=== PATIENT | female | born 1950 | race Caucasian/White ===

== ENCOUNTER 2020-03-03 08:40 | Outpatient (RCR) | payer MEDICAID, SELFPAY | END 2020-03-03 23:59 | disposition home or self-care (01) | LOC: ANHAUDIO 08:40 | PROVIDERS: PCP Family Medicine; Visit Provider Family Medicine | DX: Z46.1 Encounter for fitting and adjustment of hearing aid (principal) | CPT/HCPCS: 99199 ==

== ENCOUNTER 2020-03-05 08:30 | Outpatient (RCR) | payer MEDICARE, MEDICAID, SELFPAY ==
--- NOTE | 2020-01-10 10:31 | OTOPEVAL ---
OCCUPATIONAL THERAPY INITIAL EVALUATION: 01/10/2020 Thank you for referring Otilia Cardenas to [facility].? The patient is scheduled to be seen for therapy? 2 x/week for 4 weeks. Please review, sign, date and return this plan of care LUCILLE. I agree with and certify that the following plan of care is medically necessary. Referring Physician Date Attending Provider: PHYSICIAN NOT ON STAFF *OT Outpatient Evaluation Start: 01/10/20 09:16 Freq: Status: Active Protocol: Document 01/10/20 09:22 KJ (Rec: 01/10/20 10:31 KJ [id number]) Therapy Assessment Status Assessment Status Assessment Status Evaluation Outpatient Past Medical History Musculoskeletal History Hx Osteomyelitis Yes Endocrine History Hx Diabetes Yes Evaluation Information Problem Diagnosis trigger finger R UE Additional Evaluation Detail Patient has R UE index finger amputation. Patient was diagnosed in December 2018 with trigger finger of R UE long finger and had a trigger finger release surgery. Since surgery, the wound on long finger was not healing properly which required an additional 4 debridement surgeries. In May 2019 experienced pain in R UE long finger, patient went to doctor and on CT scan showed mass at the base of the volar aspect of MCP joint on the R UE long finger. Patient has surgery in August 2019 to have abscess removed. Since latest surgery in August, pt has not been able to flex the R UE long finger PIP/DIP joint, rests in extension. Subjective Information Pt reports decreased Query Text:As Reported By Patient/ functional use of R UE Family dominant hand and decreased ability to complete hand writing, jaquan, gripping, grasping objects, performing isaac hygiene. Patient reports unable to utilize R UE for many daily tasks due to pain and decreased ROM of R UE long finger. Prior Level of Function Activity Level (Last 3 Months) Hand Dominance
--- NOTE | 2020-02-06 08:38 | OTOPEVAL ---
OCCUPATIONAL THERAPY RE-EVALUATION 02/06/2020 Thank you for referring Otilia Cardenas to [facility].? The patient is scheduled to be seen for continued occupational therapy? 2x/week for 4 weeks. Please review, sign, date and return this plan of care LUCILLE. I agree with and certify that the following plan of care is medically necessary. Referring Physician Date Referring Provider: Joy Chisholm MD Per patient request, please also CC Dr. Ernesto Alfaro, pt's PCP *OT Outpatient Re-Evaluation Evaluation Information Problem Diagnosis Right middle finger stiffness Onset 08/2019 Additional Evaluation Detail Patient was diagnosed in December 2018 with trigger finger of right middle finger and had a trigger finger release surgery. Since surgery, the wound on long finger was not healing properly which required an additional 4 debridement surgery. In May 2019 she experienced pain in R UE long finger, CT scan showed mass at the base of the volar aspect of MCP joint on the right middle finger. Patient had surgery in August 2019 to have abcess removed. Since latest surgery in August, pt has not been able to flex the right middle finger PIP/DIP joint. Therapy has been focusing on utilizing thermal modalities, such as ultra sound and hot packs, to increase tissue extensibility in the right palm, scar massage, strengthening, and PROM for stiffness. She continues to have heavy scar formation restricting the glide of the flexor tendons. Subjective Information Pt reports that since working Query Text:As Reported By Patient/ with therapy she feels as Family though her swelling has decreased, pain has decreased, her strength has improved, and her movement is a little better. She is currently independent with ROM, scar massage/mobilization, and putty
--- NOTE | 2020-03-05 09:04 | OTOPEVAL ---
OCCUPATIONAL THERAPY RE-EVALUATION AND DISCHARGE SUMMARY 03/05/2020 Unfortunately at this time the patient has reached a plateau with functional AROM of the right middle finger. She has been educated on compensatory techniques and use of adaptive equipment to increase independence with ADLs and IADLs. She is currently independent with all home exercises. No further skilled OT is indicated at this time. Discharging patient with HEP. Thank you for referring Otilia Cardenas to [facility]. Please review, sign, date and return this Discharge Note LUCILLE. I agree with and certify that the following plan of care is medically necessary. Referring Physician Date Referring Provider: Joy Chisholm MD Per patient request, please also CC Dr. Ernesto Pugh, patient's PCP *OT Outpatient Re-Evaluation Problem Diagnosis Right middle finger stiffness Onset 08/2019 Additional Evaluation Detail Patient was diagnosed in December 2018 with trigger finger of right middle finger and had a trigger finger release surgery. Since surgery, the wound on long finger was not healing properly which required an additional 4 debridement surgeries. In May 2019 she experienced pain in R UE long finger, CT scan showed mass at the base of the volar aspect of MCP joint on the right middle finger. Patient had surgery in August 2019 to have abscess removed. Since latest surgery in August, pt has not been able to flex the right middle finger PIP/DIP joint. Therapy has been focusing on utilizing thermal modalities, such as ultrasound and hot packs, to increase tissue extensibility in the right palm, scar massage, strengthening, and PROM for stiffness. She continues to have heavy scar formation restricting the glide of the flexor tendons. Subjective Information Pt reports that she continues Query Text:As Reported By Patient/ to have constant pain in the Family right MF and hand. She states that therapy has helped with the pain and sensitivity, however th
== END 2020-03-05 11:29 | disposition home or self-care (01) ==
LOC: ANHOT 08:30
PROVIDERS: PCP Family Medicine
DX: M25.641 Stiffness of right hand, not elsewhere classified (principal); Z98.890 Other specified postprocedural states
CPT/HCPCS: 97035; 97110; 97140; 97165

== ENCOUNTER 2020-03-17 10:30 | Outpatient (CLI) | payer MEDICARE, MEDICAID, SELFPAY ==
--- NOTE | ~2020-03-17 | XR_ITS ---
XR hand RT min 3V DATE: 03/17/2020 10:51 INDICATION: Stiff fingers, immobility TECHNIQUE: 3 views COMPARISON: None FINDINGS: Diffuse osteopenia. There is amputation of the second digit at the proximal shaft of the second metacarpal bone. There is polyarticular osteoarthritis involving particularly the third metacarpophalangeal and all in terphalangeal joints. No erosive change is noted. No recent fracture or dislocation, periosteal reaction or bone destruction. 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 CTOR OF SLEEP IMPRESSION: Polyarticular osteoarthritis, particularly at third metacarpophalan geal and all interphalangeal joints Status post amputation of the second ray at the proximal shaft of the second me tacarpal Diffuse osteopenia
== END 2020-03-17 10:31 | disposition home or self-care (01) ==
LOC: ANHIMG 10:37
PROVIDERS: PCP Family Medicine; Visit Provider Plastic Surgery
DX: M25.641 Stiffness of right hand, not elsewhere classified (principal); M19.041 Primary osteoarthritis, right hand; Z89.021 Acquired absence of right finger(s)
CPT/HCPCS: 73130

== ENCOUNTER → 2020-03-25 08:13 | Outpatient (CLI) | payer MEDICARE, MEDICAID, SELFPAY ==
--- NOTE | ~2020-03-25 | MR_ITS ---
EXAMINATION: MR hand RT wo con DATE: 03/25/2020 09:17 INDICATION: Flexor tendon injury right middle finger. TECHNIQUE: Magnetic resonance imaging (MRI) of the right hand was performed without intravenous contr ast sequences included axial, coronal, and sagittal T1-weighted FSE and T2-weighted FS FSE. COMPARISON: Right hand radiographs 03/17/2020 FINDINGS: There are changes of amputation of the second ray at the diaphysis of the metatarsal. No fr acture. There is mild osteoarthritis of triscaphe joint, first carpometacarpal joint, and first and t hird metacarpophalangeal joints. There is moderate to severe osteoarthritis of most of the interphala ngeal joints. There is a complete tear of the third digit flexor digitorum profundus at the level of the metacarpophalangeal joint with tendon gap spanning 2.2 cm proximal to distal. There is a partial tear of the flexor digitorum superficialis in this location with sparing of some of the radial-sided fibers. The extensor tendons are unremarkable. IMPRESSION: 1. Complete tear of flexor digitorum profundus and partial tear of flexor digitorum superficialis in the third digit at the level of the metacarpophalangeal joint. Reviewed, dictated and finalized at location A. OM LINER IMPRESSION: 1. Complete tear of flexor digitorum profundus and partial tear of flexor digit orum superficialis in the third digit at the level of the metacarpophalangeal j oint.
== END ==
PROVIDERS: PCP Family Medicine; Visit Provider Plastic Surgery
DX: S66.192A Other injury of flexor muscle, fascia and tendon of right middle finger at wrist and hand level, initial encounter (principal); S66.112A Strain of flexor muscle, fascia and tendon of right middle finger at wrist and hand level, initial encounter
CPT/HCPCS: 73218

== ENCOUNTER 2020-07-18 07:23 | Outpatient (CLI) | payer MEDICARE, MEDICAID, SELFPAY ==
--- NOTE | 2020-07-18 07:33 | ECG_ITS ---
Measurements Intervals Oriental Rate: 70 P: 12 CO: 170 QRS: 7 QRSD: 77 T: 29 QT: 363 QTc: 392 Interpretive Statements SINUS RHYTHM LOW QRS VOLTAGE IN PRECORDIAL LEADS BORDERLINE R WAVE PROGRESSION, ANTERIOR LEADS BASELINE ARTIFACT- I, II, AVR, AVL, AVF BORDERLINE ECG Electronically Signed On 07-18-2020 8:01:53 CDT by Mejia Fulton D.O.
[2020-07-18 09:29] LABS: Anion Gap 3 mmol/L (8-16); Blood Urea Nitrogen 9 mg/dL (7-17); Calcium 9.1 mg/dL (8.4-10.2); Carbon Dioxide 32 mmol/L (22-30); Chloride 106 mmol/L (98-107); Estimated Glomerular Filt Rate > 60; Glucose 88 mg/dL (65-105); Potassium 4.2 mmol/L (3.4-5.0); Sodium 141 mmol/L (137-145)
== END 2020-07-18 07:24 | disposition home or self-care (01) ==
LOC: ANHSURGERY 07:29
PROVIDERS: Anesthesiology; PCP Family Medicine; Visit Provider Plastic Surgery
DX: E78.00 Pure hypercholesterolemia, unspecified (principal); E11.9 Type 2 diabetes mellitus without complications; Z01.818 Encounter for other preprocedural examination; R94.31 Abnormal electrocardiogram [ECG] [EKG]
CPT/HCPCS: 36415; 80048; 93005

== ENCOUNTER → 2020-07-21 01:19 | Outpatient (CLI) | payer MEDICARE, MEDICAID, SELFPAY ==
[2020-07-21 19:15] LABS: SARS-CoV-2 RNA PCR Negative
== END ==
PROVIDERS: PCP Family Medicine; Visit Provider Plastic Surgery
DX: Z01.812 Encounter for preprocedural laboratory examination (principal); Z20.822 Contact with and (suspected) exposure to COVID-19
CPT/HCPCS: C9803; U0003; U0005

== ENCOUNTER 2020-07-24 01:41 | Day surgery (SDC) | payer MEDICARE, MEDICAID, SELFPAY ==
[2020-07-14 16:15] VITALS: BMI 37.6
--- NOTE | 2020-07-24 07:12 | WPDHPUPDATE1 ---
History and Physical Update Update Date/Time: 07/24/20 07:12 History and Physical has been reviewed, including an updated exam of the patient. There are NO changes in the patient's condition. Risks, benefits, and alternatives have been discussed and questions answered. Patient agrees to proceed with procedure.
[2020-07-24] MEDS: LACTATED RINGERS 1,000 ML 30 ML IV CONT (08:06)
[2020-07-24 08:18] LABS: Glucose Point of Care 91 (65-105)
--- NOTE | 2020-07-24 08:19 | WPDANESEPPF ---
Anes - Initial Pre Proc Eval Procedure: Operation Date: 07/24/20 10:00 Proposed Procedures p Excision Of Painful Palmar Skin Mass At The Base Of Right Index Finger With Full Thickness Skin Graft From Right Forearm - Thomas Lund MD Date/Time: 07/24/20 08:19 Surgeon: Thomas Lund MD Pre Op Diagnosis: painful mass right palm Patient Data Age: 70 Gender: F Height: 5 ft 2 in Weight: 93 kg Allergies Allergy/AdvReac Type Severity Reaction Status Date / Time eucalyptus Allergy Intermediate BLISTERS Verified 07/24/20 07:42 quinine Allergy Intermediate HIVES Verified 07/24/20 07:43 levofloxacin Allergy Unknown Unknown Verified 07/24/20 07:42 menthol Allergy Unknown BLISTERS Verified 07/24/20 07:42 aspirin AdvReac Unknown Vomiting Verified 07/24/20 07:42 cephalexin AdvReac Unknown YEAST Verified 07/24/20 07:42 INFECTIONS Home Medications Medication Instructions Recorded Confirmed Type albuterol sulfate 2 inh INHALATION PRN PRN 07/14/20 07/14/20 History atorvastatin 10 mg PO DAILY 07/14/20 07/24/20 History cholecalciferol (vitamin D3) 125 mcg PO DAILY 07/14/20 07/24/20 History diltiazem HCl 30 mg PO TID 07/14/20 07/24/20 History fluoxetine 50 mg PO DAILY 07/14/20 07/24/20 History gabapentin 600 mg PO TID 07/14/20 07/24/20 History hydrocodone-acetaminophen 1 tablet PO QID 07/14/20 07/24/20 History insulin glargine [Lantus Solostar 18 unit SUBCUT BID 07/14/20 07/24/20 History U-100 Insulin] lisinopril 10 mg PO DAILY 07/14/20 07/24/20 History Laboratory Tests 07/24/20 08:15 POC Capillary Glucose 91 mg/dl mg/dl (65-105) Patient hx anesthesia problems: none Family hx anesthesia problems: none PMFSH Past Medical History Medical History Anxiety Depression Diabetes Hyperlipidemia Hypertension Neuropathy Raynaud's disease Family History Family History Other Diabetes mellitus Family history of kidney disease Family history of malignant neoplasm Social History Social History Smoking packs per day: 2 Smoking cigarettes per day: 40.0 Years smoked: 45 Smoking pack-years: 90.00 Smoking status: Current every day smoker Tobacco type: cigarettes Smoking end date: 03/21/11 Additional smoking assessment comments: STATES WILL OCC. VAPE Alcohol intake: never Living arrangements: alone Spiritual care concerns: No Anes - Eval Final PreProcedure Day of Procedure 07/24/20 08:19 Patient weight: obese Heart: regular rate and rhythm Lungs: decreased breath sounds Airway: Mallampati scale class II Neurological: alert and oriented Last oral intake: >/= 8 hours ASA classification: III Emergent: no Anesthetic plan: proceed Anesthesia type and monitoring: general (givs vs lma) and standard monitoring Informed Consent: The patient's anesthetic plan and its attendant risks and benefits were discussed with the patient/family/POA. Questions were solicited and answers provided to the satisfaction of the patient/family/POA.
[2020-07-24 08:20] VITALS: BP 135/54; PULSE 82; RESP 18; TEMP 36.6; O2SAT 96
[2020-07-24] MEDS: CLINDAMYCIN 900 MG/D5W 50 ML 900 MG/50 ML PIGGYBACK 50 MG IVPB (10:56)
[2020-07-24] MEDS: LIDO 1%/EPINEPHRINE 1:100,000 50 ML VIAL 10 ML INFILTRATE (11:26)
[2020-07-24 12:08] VITALS: BP 102/36; PULSE 98; RESP 16; TEMP 36.4; O2SAT 92
--- NOTE | 2020-07-24 12:21 | PM.OP ---
Procedure Note - Brief Procedure Note - Brief Date of procedure: 07/24/20 Pre-op diagnosis: painful mass right palm Post-op diagnosis: same Procedure performed: 1.5 cm excision of skin mass right 3rd palmar index finger with FTSG 2.5 sq cm. Anesthesia: MAC Surgeon: Thomas Lund MD Estimated blood loss (mL): 1 Drains: No Packing: No Pathology: yes Complications: No immediate complications Condition: stable Disposition: same day
[2020-07-24 12:35] VITALS: BP 129/97; PULSE 75; RESP 16; O2SAT 94
--- NOTE | 2020-07-24 12:49 | P.OP_ITS ---
Procedure Note - Detailed Date of procedure: 07/24/20 Pre-op diagnosis: painful mass right palm Post-op diagnosis: same Procedure performed: 1.5 cm excision of mass of the right hand with full- thickness skin graft 2.5 sq cm Description of procedure: The site was marked on the patient in the holding area. She was taken to the operating room placed supine on operating table. Time-out was held and confirmed. The extremity was prepped and draped usual fashion. She was given IV sedation. The site was locally infiltrated with 1% lidocaine with epinephrine. This tito the finger.. The mass was excised through full-thickness of skin. Below skin there was scar and tendon. Very released the tourniquet at that point and observed for local bleeding. A full-thickness skin graft was harvested from the right volar forearm as an extension of an exit scar. The skin graft was defatted and inset to the palmar wound with multiple nylon sutures including quilting stitches. The donor site was closed with intradermal 4-0 Monocryl sutures and glue. A bulky bandage with local gauze compression was applied to the hand. She had received clindamycin IV preop will be discharged on clindamycin. She already has hydrocodone 10 per/325 q.i.d. available at her home. Anesthesia: MAC Surgeon: Thomas Lund MD Estimated blood loss (mL): 1 Drains: No Packing: No Pathology: yes Complications: No immediate complications Condition: stable Disposition: same day
[2020-07-24 12:50] VITALS: BP 120/60; PULSE 80; RESP 16; O2SAT 94
[2020-07-24 12:50] LABS: Glucose Point of Care 71 (65-105)
== END 2020-07-24 12:57 | disposition home or self-care (01) ==
PROVIDERS: PCP Family Medicine; Visit Provider Plastic Surgery
PROC: (CPT 11422; principal; 2020-07-24 10:00)
DX: L91.0 Hypertrophic scar (principal); F17.210 Nicotine dependence, cigarettes, uncomplicated; I73.00 Raynaud's syndrome without gangrene; E11.9 Type 2 diabetes mellitus without complications; Z79.4 Long term (current) use of insulin; Z79.51 Long term (current) use of inhaled steroids; F41.8 Other specified anxiety disorders; E78.5 Hyperlipidemia, unspecified; I10 Essential (primary) hypertension; G62.9 Polyneuropathy, unspecified; E66.9 Obesity, unspecified; Z68.37 Body mass index [BMI] 37.0-37.9, adult
CPT/HCPCS: 11422; 15240; 82948; 88304; 88305; A9270; J1100; J2250; J2405; J2704; J3010; J7120

== ENCOUNTER 2020-09-08 08:30 | Outpatient (RCR) | payer MEDICARE, MEDICAID, SELFPAY ==
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
--- NOTE | 2020-09-10 14:18 | PCOTNOTE ---
OCCUPATIONAL THERAPY DISCHARGE NOTE 09/10/20 Patient:Otilia Cardenas Date of :1950 Otilia called and cancelled tomorrows re-evaluation per MD request. Patient?s initial visit was on 08/14/2020 09:00 and she had a total of 6 visits. Treatment included use of heat packs, massage, ROM, and ultrasound to help facilitate improved tissue mobility in the right palm. The goals have not been met. Thank you for referring this patient to [facility]. Please review, sign, date and return this discharge summary LUCILLE. I have been updated about the patient's current status and I agree with discharge from the above service at this time. Referring Physician Date Referring Physician: Thomas Lund MD
== END 2020-09-11 15:20 | disposition home or self-care (01) ==
LOC: ANHOT 08:30
PROVIDERS: PCP Family Medicine; Visit Provider Plastic Surgery
DX: Z48.817 Encounter for surgical aftercare following surgery on the skin and subcutaneous tissue (principal); Z94.5 Skin transplant status
CPT/HCPCS: 97035; 97110; 97140; 97165

== ENCOUNTER 2021-03-24 08:28 | Emergency (ER) | payer OTHER, SELFPAY ==
[2021-03-24] VITALS (25 sets, daily range): BP systolic 104–191; BP diastolic 51–103; PULSE 78–101; RESP 12–26; TEMP 36.2–36.8; O2SAT 91–100
--- NOTE | ~2021-03-24 | XR_ITS ---
EXAMINATION: XR ankle RT 2V DATE: 03/24/2021 11:56 INDICATION: Postreduction of a right ankle fracture TECHNIQUE: Anteroposterior and lateral views of the right ankle were obtained. COMPARISON: Earlier radiographs from 03/24/2021 FINDINGS: Again seen are fractures cross the medial malleolus and at the distal metaphyseal region of the right fibula. Both fractures along with the intervening talar dome are angulated is a relatively calyceal unit approximately 30 degrees laterally with respect to the axis of the tibial and fibular diaphyses. There is prostate 1 severe associated distraction of the medial patellar fracture. There is a likely small fracture of the lateral aspect of the posterior malleolus which is not well profiled on the pr ovided projections. Fiberglas splinting material posterior to the lower leg and extending distally al aleah the plantar aspect of the foot. Mild osteoarthritis at the tarsometatarsal joints with suggestion of degenerative subarticular cystic change versus chronic erosion with sclerotic margins at the base of the second metatarsal. Small Achilles calcaneal spur and moderate plantar calcaneal spur. IMPRESSION: 1. Trimalleolar fracture with 30 degrees residual lateral angulation of the medial and lateral malleo lar fragments as well as intervening talar dome relative to the axis of the tibial and fibular diaphy ses post reduction and splinting. Reviewed, dictated and finalized at location B. RVISOR SHOP IMPRESSION: 1. Trimalleolar fracture with 30 degrees residual lateral angulation of the med ial and lateral malleolar fragments as well as intervening talar dome relative to the axis of the tibial and fibular diaphyses post reduction and splinting.
--- NOTE | ~2021-03-24 | CT_ITS ---
EXAMINATION: CT ankle RT wo con DATE: 03/24/2021 12:28 INDICATION: Right ankle fracture dislocation. TECHNIQUE: Computed tomography (CT) of the right ankle was performed without intravenous contrast. Au tomated exposure control and iterative reconstruction technique were employed. The dose-length produc t was 428.95 mGy-cm. COMPARISON: Right ankle radiographs 03/24/2021 FINDINGS: There are comminuted fractures of distal tibia and fibula. The distal fibula demonstrates t he proximal medial aspect of the fracture line to be 5.2 cm proximal to the level of the tibial plafo nd. The main distal fracture fragment demonstrates 6 mm posterior displacement, 14 degrees anterior a ngulation, shortening, and 38 degrees lateral angulation. The fracture of distal tibia involving the medial malleolus and posterior malleolus and posterior tibial plafond. The main distal fracture fragm ent at the medial malleolus demonstrates 12 mm lateral displacement and 34 degrees lateral angulation . There is posterior and lateral displacement of the main posterior fracture fragment of the posterio r malleolus. The posterolateral tibial plafond demonstrates impaction of the articular surface. There is lateral and posterior subluxation of talus with respect to distal tibia. There is 33 degrees valg us angulation of talus with respect to distal tibia. There is polyarticular osteoarthritis of the mid foot including severe osteoarthritis of second and third tarsometatarsal joints. There is moderate an kle joint osteoarthritis. IMPRESSION: 1. Comminuted fractures of distal tibia and fibula. 2. Lateral subluxation and angulation of talus with respect to distal tibia. Reviewed, dictated and finalized at location A. ECTOR WATCH TRAIN
--- NOTE | ~2021-03-24 | XR_ITS ---
EXAMINATION: XR ankle RT 2V DATE: 03/24/2021 08:52 INDICATION: Right ankle injury. TECHNIQUE: 2 views of right ankle were obtained. COMPARISON: None. FINDINGS: There is a comminuted fracture involving medial and posterior malleoli. The main distal fra cture fragment of the medial malleolus demonstrates 1.8 cm lateral displacement and lateral angulatio n. There is a comminuted fracture of distal fibula with proximal medial aspect of the fracture line 6 .1 cm proximal to the level of the tibial plafond. The main distal fracture fragment demonstrates imp action, 48 degrees lateral angulation, and 2 mm posterior displacement. There is lateral dislocation of talus with respect to tibial plafond. The distal fracture fragments of the medial and lateral mall eoli maintain a normal relationship with the tibial plafond. There is mild osteoarthritis of talonavi cular joint. There are enthesophytes at the posterior and lateral aspects of calcaneal tuberosity. Th ere is ankle soft tissue swelling. IMPRESSION: 1. Trimalleolar ankle fracture dislocation. Reviewed, dictated and finalized at location A. T AID INSTRUCTOR
--- NOTE | ~2021-03-24 | XR_ITS ---
XR ankle RT min 3V DATE: 03/24/2021 10:14 INDICATION: Trimalleolar ankle fracture/dislocation TECHNIQUE: 3 views COMPARISON: 03/24/2021 right ankle FINDINGS: There is slight interval improvement of the lateral dislocation at the tibiotalar joint. Co mminuted lateral and medial malleolar fractures. Plantar calcaneal enthesopathy. IMPRESSION: Fracture dislocation of ankle, with slight interval improvement and lateral tibiotalar di slocation Reviewed, dictated and finalized at location A. L PARAPROFESSIONAL IMPRESSION: Fracture dislocation of ankle, with slight interval improvement and lateral tibiotalar dislocation
[2021-03-24] MEDS: HYDROmorphone HCL INJ (*CRX) 1 MG/ML SYR IV PUSH (10:59)
--- NOTE | 2021-03-24 11:40 | PC.NURSE ---
EDP Carlos and FREIDA Narayan in room for moderate sedation. Crash cart in room, ETCO2 monitoring on patient. 1143 - EDP Carlos gave 60mg Propofol
--- NOTE | 2021-03-24 11:52 | ED.GENADULT ---
HPI - General Adult General Chief complaint: Extremity Injury, Lower Stated complaint: fx ankle Time Seen by Provider: 03/24/21 09:59 Source: patient Mode of arrival: EMS Limitations: no limitations History of Present Illness HPI narrative: Patient is a 70-year-old female presented with chief complaint of right ankle deformity after falling prior to arrival. Patient states she is honestly not sure how she fell or landed. Denies any head impact. Denies any loss of consciousness. Patient reports severe pain swelling and bruising to her right ankle. Patient denies any prior fractures to the ankle. Patient reports that she was not able to bear weight on the extremity. Patient reports her past medical history is significant for being a insulin-dependent diabetic. She also reports having high blood pressure Related Data Home Medications Medication Instructions Recorded Confirmed albuterol sulfate 2 inh INHALATION PRN PRN 07/14/20 07/14/20 atorvastatin 10 mg PO DAILY 07/14/20 07/24/20 cholecalciferol (vitamin D3) 125 mcg PO DAILY 07/14/20 07/24/20 diltiazem HCl 30 mg PO TID 07/14/20 07/24/20 fluoxetine 50 mg PO DAILY 07/14/20 07/24/20 gabapentin 600 mg PO TID 07/14/20 07/24/20 hydrocodone-acetaminophen 1 tablet PO QID 07/14/20 07/24/20 insulin glargine [Lantus Solostar 18 unit SUBCUT BID 07/14/20 07/24/20 U-100 Insulin] lisinopril 10 mg PO DAILY 07/14/20 07/24/20 Allergies Allergy/AdvReac Type Severity Reaction Status Date / Time eucalyptus Allergy Intermediate BLISTERS Verified 07/24/20 07:42 quinine Allergy Intermediate HIVES Verified 07/24/20 07:43 levofloxacin Allergy Unknown Unknown Verified 07/24/20 07:42 menthol Allergy Unknown BLISTERS Verified 07/24/20 07:42 aspirin AdvReac Unknown Vomiting Verified 07/24/20 07:42 cephalexin AdvReac Unknown YEAST Verified 07/24/20 07:42 INFECTIONS Review of Systems Review of Systems: CONSTITUTIONAL: Denies fever, chills, or sweats. EYES: Denies visual changes, redness, or discharge. ENT: Denies rhinorrhea, congestion, sore throat, or otalgia. CARDIOVASCULAR: Denies chest pain, palpitations, or edema. RESPIRATORY: Denies cough or dyspnea. GASTROINTESTINAL: Denies abdominal pain, nausea, vomiting, or diarrhea. GENITOURINARY: Denies dysuria or hematuria. SKIN: Denies rash or itching. MUSCULOSKELETAL: Reports right ankle fracture denies back pain, joint pain, or myalgia. NEUROLOGIC: Denies headache, numbness, dizziness, or weakness. PSYCHIATRIC: Denies anxiety or depression. [facility] Past Medical History Medical History Anxiety Depression Diabetes Hyperlipidemia Hypertension Neuropathy Raynaud's disease Family History Family History Other Diabetes mellitus Family history of kidney disease Family history of malignant neoplasm Social History Social History Smoking packs per day: 2 Smoking cigarettes per day: 40.0 Years smoked: 45 Smoking pack-years: 90.00 Smoking status: Current every day smoker Tobacco type: cigarettes Smoking end date: 03/21/11 Additional smoking assessment comments: STATES WILL OCC. VAPE Alcohol intake: never Spiritual care concerns: No Exam Narrative: GENERAL: Well-appearing, well-nourished, and in no acute distress. HEAD: Normocephalic, atraumatic. EYES: PERRLA and EOMI. CHEST: Clear to auscultation. No respiratory distress. No wheezes rales or rhonchi HEART: Regular rate and rhythm. Normal peripheral pulses. EXTREMITIES: Edema ecchymosis or deformity noted to right ankle. There is ecchymosis over the medial malleolus with lateral swelling. Patient's right ankle is foot is deformed- externally rotated. SKIN: Warm, dry, no rash. NEURO: Alert and oriented x3. Non voluntary movements of upper and lower extermities- patient reports due to pain. PSYC
[2021-03-24] MEDS: MORPHINE SULFATE (*CRX) 4 MG/ML INJ IV PUSH (13:19)
[2021-03-24] MEDS: SODIUM CHLORIDE 0.9% IV 1,000 ML 999 ML IV CONT (16:23)
--- NOTE | 2021-03-24 16:35 | PC.NURSE ---
Saline bolus infusing at time of departure with EMS
== END 2021-03-24 16:35 | disposition short-term general hospital (02) ==
PROVIDERS: Emergency Provider Emergency Medicine; PCP Family Medicine
DX: S82.851A Displaced trimalleolar fracture of right lower leg, initial encounter for closed fracture (principal); E11.9 Type 2 diabetes mellitus without complications; I10 Essential (primary) hypertension; E78.5 Hyperlipidemia, unspecified; F17.210 Nicotine dependence, cigarettes, uncomplicated; Z79.4 Long term (current) use of insulin; Z79.891 Long term (current) use of opiate analgesic; W19.XXXA Unspecified fall, initial encounter
CPT/HCPCS: 29505; 73600; 73610; 73700; 96361; 96365; 96375; 99285; J0131; J1170; J2270; J7030

== ENCOUNTER 2021-05-14 11:41 | Emergency (ER) | payer OTHER, SELFPAY ==
[2021-05-14] VITALS (19 sets, daily range): BP systolic 80–114; BP diastolic 38–93; PULSE 52–69; RESP 11–18; TEMP 36.9–37.4; O2SAT 94–99
--- NOTE | ~2021-05-14 | XR_ITS ---
EXAMINATION: XR ankle RT min 3V DATE: 05/14/2021 12:24 INDICATION: Right lower leg pain and erythema. TECHNIQUE: 4 views of right ankle were obtained. COMPARISON: Right ankle radiographs 03/24/2021 FINDINGS: There is a comminuted fracture of distal fibula with internal fixation with lateral plate, multiple screws, and 2 syndesmotic screws. The main distal fracture fragment demonstrates near-anatom ic alignment. There is a fracture of medial malleolus in near-anatomic alignment status post open red uction internal fixation with medial plates with screws and interfragmentary screws. Osteopenia is no corrina. There are erosions of medial malleolus. There is severe tibiotalar joint osteoarthritis. There i s mild midfoot osteoarthritis. There are enthesophytes at the posterior and plantar aspects of calcan eal tuberosity. There is soft tissue swelling about the ankle and foot. IMPRESSION: 1. Erosions of medial malleolus suspicious for osteomyelitis. 2. Comminuted fractures of distal fibula and medial malleolus status post open reduction internal fix ation. 3. 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 Reviewed, dictated and finalized at location A. L RIGHTS INVESTIGATOR IMPRESSION: 1. Erosions of medial malleolus suspicious for osteomyelitis. 2. Comminuted fractures of distal fibula and medial malleolus status post open reduction internal fixation. 3. 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
--- NOTE | ~2021-05-14 | US_ITS ---
EXAMINATION: US venous doppler LE RT DATE: 05/14/2021 12:40 INDICATION: Right lower limb pain. TECHNIQUE: Grayscale ultrasound images without and with compression and Doppler ultrasound images of the right lower extremity veins were obtained. COMPARISON: None. FINDINGS: The visualized portions of right common femoral vein, profunda (deep) femoral vein, femoral vein, pop liteal vein, peroneal veins, posterior tibial veins, and greater saphenous vein outflow are patent. IMPRESSION: 1. No deep venous thrombosis. Reviewed, dictated and finalized at location A. DDER TENDER PEAT
[2021-05-14] MEDS: SODIUM CHLORIDE 0.9% IV 1,000 ML 999 ML IV CONT (12:05)
[2021-05-14 12:07] LABS: Basophils Absolute Auto 0.1 K/mm3 (0.0-0.1); Basophils Percent Auto 0.5 % (0.2-1.2); Eosinophils Absolute Auto 0.3 K/mm3 (0-0.3); Eosinophils Percent Auto 2.5 % (0-4.4); Hematocrit 27.4 % (37.0-47.0); Hemoglobin 8.3 g/dL (12.0-15.0); Immature Granulocyte Absolute 0.02 K/mm3 (0.00-0.031); Immature Granulocyte Percent A 0.2 % (0-0.5); Lymphocytes Absolute Auto 1.64 K/mm3 (0.9-3.2); Lymphocytes Percent Auto 16.3 % (18.3-44.2); Mean Corpuscular HGB Conc 30.3 g/dl (32-36); Mean Corpuscular Hemoglobin 26.8 pg (26-34); Mean Corpuscular Volume 88.4 fl (80-100); Mean Platelet Volume 10.7 fl (7.4-10.4); Monocytes Absolute Auto 0.7 K/mm3 (0.1-0.6); Monocytes Percent Auto 7.3 % (2.6-8.5); Neutrophils Absolute Auto 7.4 K/mm3 (1.3-6.7); Neutrophils Percent Auto 73.2 % (45.5-73.1); Platelet Count Result 390 k/mm3 (150-375); Red Cell Distribution Width 16.2 % (11.5-14.5)
[2021-05-14 12:17] LABS: INR 1.8; Prothrombin Time 19.8 Seconds (11.1-14.7)
[2021-05-14 12:18] LABS: Lactic Acid Reflex 1.4 mmol/L (0.7-2.1)
[2021-05-14 12:37] LABS: Alanine Aminotransferase 15 U/L (4-35); Alkaline Phosphatase 97 U/L (38-126); Anion Gap 7 mmol/L (8-16); Aspartate Amino Transferase 20 U/L (14-36); Bilirubin,Total 0.2 mg/dL (0.2-1.3); Blood Urea Nitrogen 38 mg/dL (7-17); Calcium 8.7 mg/dL (8.4-10.2); Carbon Dioxide 26 mmol/L (22-30); Chloride 103 mmol/L (98-107); Estimated CRCL calculation 31 ml/min; Estimated Glomerular Filt Rate 32; Glucose 120 mg/dL (65-110); Potassium 5.1 mmol/L (3.4-5.0); Sodium 136 mmol/L (137-145)
[2021-05-14] MEDS: SODIUM CHLORIDE 0.9% IV 500 ML 999 ML IV CONT (12:58)
[2021-05-14] MEDS: SILVERGEL (ELTA) 45 ML 1 APPLIC TOPICAL (13:36)
--- NOTE | 2021-05-14 13:52 | PC.NURSE ---
EDP Cher notified of patient's allergy to cephalexin. Patient states she itches and gets hives. Per EDP Cher, do not administer Zosyn at this time.
--- NOTE | 2021-05-14 15:37 | ED.GENADULT ---
HPI - General Adult General Chief complaint: Wound/Laceration Stated complaint: not specified for re-evaluation Source: RN notes reviewed History of Present Illness HPI narrative: Patient presents emergency department from [facility] via EMS for wounds on her right leg. Patient states that she had fallen in March and had a fracture of her ankle she had been transferred at that time and had ankle fixed at [facility] she had a cast on the cast was recently taken off per the patient she has been having wounds on her right leg that been progressively worsening Steffensen in today for worsening of the wounds she denies having fevers or chills chest pain shortness of breath states that the right leg has been swollen Related Data Home Medications Medication Instructions Recorded Confirmed albuterol sulfate 2 inh INHALATION PRN PRN 07/14/20 07/14/20 atorvastatin 10 mg PO DAILY 07/14/20 07/24/20 cholecalciferol (vitamin D3) 125 mcg PO DAILY 07/14/20 07/24/20 diltiazem HCl 30 mg PO TID 07/14/20 07/24/20 fluoxetine 50 mg PO DAILY 07/14/20 07/24/20 gabapentin 600 mg PO TID 07/14/20 07/24/20 hydrocodone-acetaminophen 1 tablet PO QID 07/14/20 07/24/20 insulin glargine [Lantus Solostar 18 unit SUBCUT BID 07/14/20 07/24/20 U-100 Insulin] lisinopril 10 mg PO DAILY 07/14/20 07/24/20 Allergies Allergy/AdvReac Type Severity Reaction Status Date / Time eucalyptus Allergy Intermediate BLISTERS Verified 05/14/21 13:46 quinine Allergy Intermediate HIVES Verified 05/14/21 13:46 cephalexin Allergy Unknown Itching Verified 05/14/21 13:54 levofloxacin Allergy Unknown Unknown Verified 05/14/21 13:46 menthol Allergy Unknown BLISTERS Verified 05/14/21 13:46 Quinolones Allergy Unknown Verified 05/14/21 13:46 aspirin AdvReac Unknown Vomiting Verified 05/14/21 13:46 Review of Systems Review of Systems: Gen.: Denies fevers or chills ENT: Denies congestion Respiratory: Denies shortness of breath or cough CV: Denies chest pain or palpitations GI: Denies abdominal pain nausea, emesis or diarrhea Musculoskeletal: Reports right leg pain Neuro: Denies numbness, tingling, weakness or focal weakness Skin: See HPI Except as documented, all other systems reviewed and negative FOR[facility]LY [facility] Past Medical History Medical History Anxiety Depression Diabetes Hyperlipidemia Hypertension Neuropathy Raynaud's disease Family History Family History Other Diabetes mellitus Family history of kidney disease Family history of malignant neoplasm Social History Social History Smoking packs per day: 2 Smoking cigarettes per day: 40.0 Years smoked: 45 Smoking pack-years: 90.00 Smoking status: Current every day smoker Tobacco type: cigarettes Smoking end date: 03/21/11 Additional smoking assessment comments: STATES WILL OCC. VAPE Alcohol intake: never Spiritual care concerns: No Exam Narrative: APPEARANCE: No acute distress, nontoxic, resting in bed EYES: EOMI HEENT: Normocephalic, atraumatic, OMM RESPIRATORY: No respiratory distress Clear to auscultation bilaterally with no rhonchi wheezing or rales. CARDIOVASCULAR: Regular rate and rhythm without murmurs rubs or gallops. ABDOMINAL: Soft, nontender, nondistended, no rebound or guarding MUSCULOSKELETAl: Moves all extremities. No clubbing, cyanosis 3+ edema of the right lower extremity Doppler pulse present by ultrasound NEURO: Awake and alert. Following commands, speech normal, no focal deficits SKIN:: Warm, dry. Numerous ulcerated wounds over the right lower extremity from the mid dubois down to the right foot different stages of healing the right medial malleolus has a tunneling wound that appears to tunnel down to the bone with mild purulent drainage PSYCHIATRIC: Normal affect/mood, Course Course Emergency Course: Reviewed
[2021-05-14 15:51] LABS: SARS-CoV-2 RNA PCR Negative
[2021-05-14] MEDS: HYDROcodone/acetaminophen (*CRX) 5-325 MG TABLET 1 TAB PO (16:16)
[2021-05-14] MEDS: SODIUM CHLORIDE 0.9% IV 1,000 ML 80 ML IV CONT (16:49)
--- NOTE | 2021-05-14 16:52 | PC.NURSE ---
[facility] declined [facility] accepted ETA 1800 Trip#[id number]
--- NOTE | 2021-05-14 18:26 | PC.NURSE ---
Per EDP Cher, roma to stop infusion of normal saline when EMS arrives. Normal saline fluids stopped at this time.
== END 2021-05-14 18:27 | disposition short-term general hospital (02) ==
PROVIDERS: Emergency Provider Emergency Medicine; PCP Family Medicine
DX: E11.69 Type 2 diabetes mellitus with other specified complication (principal); M86.9 Osteomyelitis, unspecified; N28.9 Disorder of kidney and ureter, unspecified; Z20.822 Contact with and (suspected) exposure to COVID-19; E78.5 Hyperlipidemia, unspecified; I10 Essential (primary) hypertension; E11.40 Type 2 diabetes mellitus with diabetic neuropathy, unspecified; I73.00 Raynaud's syndrome without gangrene; F41.9 Anxiety disorder, unspecified; F32.A Depression, unspecified; Z79.4 Long term (current) use of insulin; F17.290 Nicotine dependence, other tobacco product, uncomplicated; M19.071 Primary osteoarthritis, right ankle and foot; R60.0 Localized edema
CPT/HCPCS: 36415; 73610; 80053; 83605; 85025; 85610; 85730; 87040; 87070; 87075; 87077; 87186; 87205; 93971; 96361; 96365; 96367; 99285; A9270; C9803; J0743; J2543; J3370; J7030; J7040; U0003; U0005

== ENCOUNTER 2021-12-07 14:10 | Inpatient (IN) | payer OTHER, SELFPAY ==
[2021-12-07] VITALS (14 sets, daily range): BP systolic 96–130; BP diastolic 33–73; PULSE 87–102; RESP 12–24; TEMP 36.7–38.3; O2SAT 94–98
--- NOTE | ~2021-12-07 | XR_ITS ---
XR chest 1V portable 12/07/2021 17:05 Indication: Fever. Shortness of breath. Procedure: AP portable chest Comparison: 06/20/2014 Findings: Heart size normal. There is lingular infiltrates which may represent atelectasis or less li ping pneumonia. No pleural effusion, edema or pneumothorax. No acute osseous abnormality. Impression: 1: Lingular infiltrates which may represent atelectasis or pneumonia. Reviewed, dictated and finalized at location A. Impression: 1: Lingular infiltrates which may represent atelectasis or pneumonia.
--- NOTE | ~2021-12-07 | XR_ITS ---
EXAM: XR foot RT 2V DATE: 12/07/2021 17:05 HISTORY: r/o osteo . COMPARISON: None available. FINDINGS: Severe osteopenia which limits radiographic sensitivity. Extensive hardware fixation of th e ankle, without definite hardware fracture or perihardware lucency, noting that the provided views a re suboptimal of the hardware. No acute fracture or dislocation. No definite osseous erosion. No defi nite periosteal change. Diffuse soft tissue swelling about the lower leg and foot. Ankle joint effusi on. IMPRESSION: No radiographic evidence of osteomyelitis. Reviewed, dictated and finalized at location K.
--- NOTE | 2021-12-07 14:27 | ECG_ITS ---
Measurements Intervals [place] Rate: 92 P: 64 VT: 162 QRS: 8 QRSD: 88 T: 68 QT: 339 QTc: 421 Interpretive Statements SINUS RHYTHM CONSIDER INFERIOR INFARCT, AGE INDETERMINATE BORDERLINE ST-T WAVE ABNORMALITY- HIGH LATERAL LEADS BASELINE ARTIFACT- I, II, III, AVR, AVL ABNORMAL ECG COMPARED TO ECG 07/18/2020 07:44:21 NO SIGNIFICANT CHANGES Electronically Signed On 12-07-2021 16:54:57 CDT by Mejia Fulton D.O.
--- NOTE | 2021-12-07 15:01 | ED.WEAKNESS ---
HPI - Weakness General Chief complaint: Weakness Stated complaint: lethargy, ?AMS Time Seen by Provider: 12/07/21 14:25 History of Present Illness HPI Narrative: Pt presents with generalized weakness. Pt denies one sided weakness or CRUZ. Daughter said she had slid off recliner and was on floor at 0300 with blanket covering her. She put her in the chair and went to work and when she stopped by she was still in the chair which is not typical. Related Data Home Medications Medication Instructions Recorded Confirmed albuterol sulfate 90 mcg/actuation 2 inh inhalation PRN PRN SOB 07/14/20 07/14/20 aerosol inhaler atorvastatin 10 mg tablet 10 mg PO DAILY 07/14/20 07/24/20 cholecalciferol (vitamin D3) 125 125 mcg PO DAILY 07/14/20 07/24/20 mcg (5,000 unit) tablet diltiazem HCl 30 mg tablet 30 mg PO TID 07/14/20 07/24/20 fluoxetine 10 mg capsule 50 mg PO DAILY 07/14/20 07/24/20 gabapentin 300 mg capsule 600 mg PO TID 07/14/20 07/24/20 hydrocodone 10 mg-acetaminophen 1 tablet PO QID PAIN 07/14/20 07/24/20 325 mg tablet insulin glargine 100 unit/mL (3 18 unit subcut BID 07/14/20 07/24/20 mL) subcutaneous pen (Lantus Solostar U-100 Insulin) lisinopril 10 mg tablet 10 mg PO DAILY 07/14/20 07/24/20 apixaban 5 mg tablet (Eliquis) mg 12/07/21 12/07/21 cholecalciferol (vitamin D3) 125 12/07/21 mcg (5,000 unit) capsule diltiazem HCl 120 mg mg PO 12/07/21 capsule,extended release 24 hr, controlled (DILT-XR) duloxetine 30 mg capsule,delayed mg PO 12/07/21 release furosemide 20 mg tablet mg 12/07/21 furosemide 40 mg tablet mg 12/07/21 hydrocodone 10 mg-acetaminophen tablet 12/07/21 325 mg tablet Allergies Allergy/AdvReac Type Severity Reaction Status Date / Time eucalyptus Allergy Intermediate BLISTERS Verified 12/07/21 17:12 quinine Allergy Intermediate HIVES Verified 12/07/21 17:12 cephalexin Allergy Unknown Itching Verified 12/07/21 17:12 levofloxacin Allergy Unknown Unknown Verified 12/07/21 17:12 menthol Allergy Unknown BLISTERS Verified 12/07/21 17:12 Quinolones Allergy Unknown Verified 12/07/21 17:12 aspirin AdvReac Unknown Vomiting Verified 12/07/21 17:12 Review of Systems Review of Systems: All systems reviewed & are unremarkable except as noted in HPI and below PMFSH Past Medical History Medical History Anxiety Depression Diabetes Hyperlipidemia Hypertension Neuropathy Raynaud's disease Family History Family History Other Diabetes mellitus Family history of kidney disease Family history of malignant neoplasm Social History Social History Smoking packs per day: 2 Smoking cigarettes per day: 40.0 Years smoked: 45 Smoking pack-years: 90.00 Smoking status: Current every day smoker Tobacco type: cigarettes Smoking end date: 03/21/11 Additional smoking assessment comments: STATES WILL OCC. VAPE Alcohol intake: never Spiritual care concerns: No Exam Const: General: healthy appearing and no acute distress Nutritional Appearance: well nourished Orientation/consciousness: patient oriented x3 Limitations: no limitations Neck: Neck: normal visual inspection, no lymphadenopathy and no meningeal signs Chest: Chest palpation & inspection: normal inspection of the chest Resp: Effort & Inspection: normal respiratory effort Auscultation: clear to auscultation bilaterally Cardio: Rate: regular rate Rhythm: regular rhythm GI: GI Palp: Yes Soft to palpation Auscultation: normal bowel sounds Skin: General skin exam: normal color Rashes: no rashes Wounds: no wounds Neuro: General: patient oriented x3 Cranial nerves: Yes Nystagmus not present Speech: normal speech Gait exam (Neuro): Normal gait present Extrem: General: edema (right leg, wound to right foot) right Psych: Mental Statu
[2021-12-07 16:48] LABS: Basophils Absolute Auto 0.1 K/mm3 (0.0-0.1); Basophils Percent Auto 0.2 % (0.2-1.2); Eosinophils Absolute Auto 0.1 K/mm3 (0-0.3); Eosinophils Percent Auto 0.3 % (0-4.4); Hematocrit 31.7 % (37.0-47.0); Immature Granulocyte Absolute 0.67 K/mm3 (0.00-0.031); Immature Granulocyte Percent A 2.7 % (0-0.5); Lymphocytes Absolute Auto 0.65 K/mm3 (0.9-3.2); Lymphocytes Percent Auto 2.7 % (18.3-44.2); Mean Corpuscular HGB Conc 31.5 g/dl (32-36); Mean Corpuscular Hemoglobin 28.1 pg (26-34); Mean Platelet Volume 10.8 fl (7.4-10.4); Monocytes Absolute Auto 0.4 K/mm3 (0.1-0.6); Monocytes Percent Auto 1.5 % (2.6-8.5); Neutrophils Absolute Auto 22.6 K/mm3 (1.3-6.7); Neutrophils Percent Auto 92.6 % (45.5-73.1); Platelet Count Result 267 k/mm3 (150-375); Red Blood Count 3.56 M/mm3 (4.2-5.4); Red Cell Distribution Width 15.3 % (11.5-14.5); White Blood Count 24.4 K/mm3 (4.5-10.0)
[2021-12-07 16:50] LABS: Appearance Urine Cloudy (Clear); Bilirubin Urine 1+ (Negative); Blood Urine 3+ (Negative); Color Urine Yellow (Yellow); Glucose Urine UA Negative (Negative); Ketones Urine Negative (Negative); Leukocyte Esterase Ur Negative LEU/UL (Negative); Nitrate Urine Negative (Negative); Protein Urine 1+ mg/dL (Negative); Specific Grav Ur 1.025 (1.001-1.035); Urobilinogen Urine 0.2 mg/dL (<2.0); pH Urine 5.5 (5.0-9.0)
[2021-12-07 16:59] LABS: Creatine Kinase 175 U/L (30-135); INR 1.4; Prothrombin Time 16.3 Seconds (11.1-14.7)
[2021-12-07 17:00] LABS: Lactic Acid Reflex 2.3 mmol/L (0.7-2.0)
[2021-12-07 17:01] LABS: Bacteria Urine Trace /hpf; Mucus Urine Rare /lpf; Squamous Epithelial Cell Urine Rare /hpf (Few)
[2021-12-07 17:14] LABS: Erythrocyte Sedimentation Rate 96 mm/hr (0-20)
[2021-12-07 17:16] LABS: Alanine Aminotransferase 18 U/L (6-35); Albumin Level 3.6 g/dL (3.5-5.1); Alkaline Phosphatase 105 U/L (38-126); Anion Gap 12 mmol/L (8-16); Aspartate Amino Transferase 27 U/L (14-36); Bilirubin,Total 0.3 mg/dL (0.2-1.3); Blood Urea Nitrogen 16 mg/dL (7-17); CRP 23.9 mg/dL (<1.0); Carbon Dioxide 24 mmol/L (22-30); Chloride 102 mmol/L (98-107); Estimated CRCL calculation 52 ml/min; Estimated Glomerular Filt Rate > 60; Glucose 184 mg/dL (65-110); Potassium 3.3 mmol/L (3.4-5.0); Sodium 138 mmol/L (137-145)
[2021-12-07 17:21] LABS: Add Urine Microscopic? YES
--- NOTE | 2021-12-07 17:21 | ECG_ITS ---
Measurements Intervals [place] Rate: 94 P: 67 NE: 170 QRS: 14 QRSD: 88 T: 56 QT: 346 QTc: 434 Interpretive Statements SINUS RHYTHM NORMAL ECG COMPARED TO ECG 12/07/2021 14:27:46 NO SIGNIFICANT CHANGES Electronically Signed On 12-11-2021 10:15:47 CDT by Mejia Fulton D.O.
--- NOTE | 2021-12-07 18:00 | PM.IMHP ---
H&P: HPI History of Present Illness Date/Time: 12/07/21 18:00 Chief Complaint: Fever, confusion. Narrative: This is a 71-year-old female with insulin-dependent diabetes, hypertension, and hyperlipidemia presented to the emergency department via EMS from home for evaluation of fever and confusion. She is alert and oriented however she seems a bit delirious and some of the following history is provided by her daughter Kavitha, with the patient's permission. According to the patient's daughter, the patient has been lethargic for last 24 hours and earlier today she slid down off of her bed onto the floor. Her daughter helped her back into bed and when she went to check on her later, she was still asleep and was lethargic and so she brought her in for evaluation. She was febrile on arrival to the emergency department with soft blood pressures though they have responded to IV fluid rehydration. She reported having a mild cough and her chest x-ray was read as having lingular infiltrates representing atelectasis or pneumonia and the hospitalist service was asked to admit her for treatment of pneumonia. Her right ankle was also imaged as she reported having a chronic wound there. There was no evidence to suggest osteomyelitis however she had copious amounts of purulent drainage with evidence of cellulitis and lymphangitic streaking on exam. It is my understanding that she had an open reduction internal fixation in March of this year after sustaining a trimalleolar fracture and about a month thereafter the wound became infected with possible osteomyelitis by history and she reports having what sounds like a debridement. Transfer was initiated to [facility] in [place] where she had her surgery performed and she has been accepted by Dr. Pinon (hospitalist) with Dr. Lewis (orthopedic surgery) consulting. Review of Systems Review of Systems: Twelve systems were reviewed. She has been running a fever. Appetite has not been great. She denies vomiting and diarrhea. She has a mild amount of pain in the right ankle. She has been dressing the wound herself and she cannot tell me how long she has had such copious amounts of drainage. Except as documented, all other systems were reviewed and are negative. [facility] Past Medical History Medical History (Updated 12/07/21 @ 23:22 by Komal Coleman PA-C) Anxiety Chronic anemia Chronic obstructive pulmonary disease Depression Hearing loss Hyperlipidemia Hypertension Insulin dependent type 2 diabetes mellitus MRSA infection MRSA infection of the right hand in October 2013. 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 Amputation of digit of right hand Secondary to osteomyelitis. History of appendectomy History of carpal tunnel release History of section History of exploratory laparotomy History of hysterectomy History of open reduction and internal fixation (ORIF) procedure (03/2021) Repair of right ankle fracture per Dr. Cristo Lewis at [facility]. Status post excision of lipoma Family History Family History Father Diabetes mellitus Family history of malignant neoplasm Mother Family history of malignant neoplasm Social History Social History (Updated 12/07/21 @ 23:08 by Komal Coleman PA-C) Social History: Surrogate medical decision maker: Kavitha Sterling, daughter. Code status: Full code. Smoking packs per day: 2 Smoking cigarettes per day: 40.0 Years smoked: 50 Smoking pack-years: 100.00 Smoking status: Current every day smoker Tobacco type: cigarettes and e-cigarettes/vaping Additional smoking assessment comments: Up to 2 packs per day at one point. Still vapes. Alcohol intake: never S
[2021-12-07 19:21] LABS: SARS-CoV-2 RNA PCR Negative
[2021-12-07] MEDS: PIPERACILLIN/TAZOBACTAM SOD 4.5 GM in SODIUM CHLORIDE 0.9% IV 100 ML 200 ML IVPB (19:43)
[2021-12-07 19:46] LABS: Reflex Lactic Acid Yes or No Add Lactic
--- NOTE | 2021-12-07 21:40 | ADMGEN ---
This patient, Otilia Cardenas, was admitted to Medical Room 247-. Patient/family oriented to hospital policies and general routines including ID bracelet, bed and alarms, visiting hours, pain management, procedures, bathroom and other care routines, personal items, smoking policy, room service/diet, and visiting hours. Information on how to activate the Rapid Response Team has been discussed. Patient/Family are encouraged to report perceived risks to care and to ask questions if they do not understand what they are told or what they should do.
[2021-12-07] MEDS: SODIUM CHLORIDE 0.9% IV 1,000 ML 999 ML IV CONT (22:00)
[2021-12-07] MEDS: SODIUM CHLORIDE 0.9% IV 1,000 ML 125 ML IV CONT (23:31)
[2021-12-08] VITALS (12 sets, daily range): BP systolic 113–129; BP diastolic 46–66; PULSE 85–147; RESP 12–22; TEMP 36.5–37.3; O2SAT 93–98; BMI 33.4
[2021-12-08 05:48] LABS: Basophils Percent Auto 0.1 % (0.2-1.2); Hematocrit 29.4 % (37.0-47.0); Hemoglobin 9.1 g/dL (12.0-15.0); Immature Granulocyte Percent A 2.3 % (0-0.5); Lymphocytes Percent Auto 3.2 % (18.3-44.2); Mean Corpuscular Hemoglobin 27.8 pg (26-34); Mean Corpuscular Volume 89.9 fl (80-100); Mean Platelet Volume 11.3 fl (7.4-10.4); Monocytes Absolute Auto 0.6 K/mm3 (0.1-0.6); Monocytes Percent Auto 2.9 % (2.6-8.5); Neutrophils Absolute Auto 19.9 K/mm3 (1.3-6.7); Neutrophils Percent Auto 91.5 % (45.5-73.1); Platelet Count Result 252 k/mm3 (150-375); Red Blood Count 3.27 M/mm3 (4.2-5.4); Red Cell Distribution Width 15.1 % (11.5-14.5); White Blood Count 21.8 K/mm3 (4.5-10.0)
[2021-12-08 05:51] LABS: Lactic Acid 1.4 mmol/L (0.7-2.0)
[2021-12-08 06:12] LABS: Hemoglobin A1C 5.8 % (<5.7)
[2021-12-08 06:14] LABS: Anion Gap 10 mmol/L (8-16); Blood Urea Nitrogen 15 mg/dL (7-17); Calcium 8.5 mg/dL (8.4-10.2); Carbon Dioxide 24 mmol/L (22-30); Chloride 102 mmol/L (98-107); Estimated CRCL calculation 52 ml/min; Estimated Glomerular Filt Rate > 60; Glucose 189 mg/dL (65-110); Magnesium 2.1 mg/dL (1.6-2.3); Potassium 2.7 mmol/L (3.4-5.0); Sodium 136 mmol/L (137-145)
[2021-12-08] MEDS: POTASSIUM CHLORIDE 20 MEQ TABLET 40 MEQ PO (06:34)
--- NOTE | 2021-12-08 07:39 | PC.NURSE ---
RN and provider to bedside for initial AM assessment. Current HR AFib 130s-150s. Pt. currently A&O x 3. Questions regarding home care and medications answered inappropriately. Lost access this AM, vascular ict security specialist at bedside replacing now. Per , ABILIO to give scheduled dose of Diltiazem now and transfer pt. to IMU for further management. Report given to JANELL Vazquez at [id number].
--- NOTE | 2021-12-08 07:48 | PM.IMPN ---
Progress Note: A&P Assessment and Plan (1) Paroxysmal atrial fibrillation: Code(s): I48.0 - Paroxysmal atrial fibrillation Status: Acute Assessment and Plan: Was in a sinus rhythm on admission. This morning, patient went into AFib/RVR. Suspect related to sepsis and/or hypokalemia. Diltiazem has already been resumed. Eliquis has been put on hold for possible upcoming surgery. Move to IMU. Check TSH. Consider Amio if she does not convert spontaneously. 40 minutes spent on critical care time. (2) Sepsis: Code(s): A41.9 - Sepsis, unspecified organism Status: Acute Assessment and Plan: The patient has sepsis with fever, tachycardia, elevated lactic acid, leukocytosis, and metabolic encephalopathy in the setting of right ankle infection. Blood pressure remaining stable. Blood and wound cultures have been ordered and are pending. WBC trending down. COVID negative. Will check sputum cx given the CXR findings and cough. Continue Promaxin and Vanco. Follow up on cultures. (3) Cellulitis of right ankle: Code(s): L03.115 - Cellulitis of right lower limb Status: Acute Assessment and Plan: The patient has cellulitis surrounding an open wound above the right medial malleolus. She has hardware in place from a right ankle ORIF in March 2021 done at [facility] in [place]. She presumably had a debridement about a month thereafter due to infection and findings of possible osteomyelitis. She does have a history of MRSA skin and soft tissue infections. Foot xray not showing osteomyelitis. No hardward fracture. She has been started on vancomycin and Primaxin. Follow up on cultures. (4) Infected hardware in right lower extremity: Code(s): T84.7XXA - Infection and inflammatory reaction due to other internal orthopedic prosthetic devices, implants and grafts, initial encounter Status: Acute Assessment and Plan: She has been accepted at [facility]. Dr. Pinon has accepted for the hospitalist group and Dr. Lewis will consult. Awaiting bed. (5) Metabolic encephalopathy: Code(s): G93.41 - Metabolic encephalopathy Status: Acute Assessment and Plan: Secondary to infection of the right ankle. AO x4 but with odd statements. No lateralizing signs. Follow. Check B12, TSH. Consider CT brain if her condition does not improve as expected. (6) Chronic anemia: Code(s): D64.9 - Anemia, unspecified Status: Acute Assessment and Plan: Hemoglobin 8.3 in April but no other values. Hgb 10 here and has dropped to 9.1. Check iron studies, B12. (7) Hypokalemia: Code(s): E87.6 - Hypokalemia Status: Acute Assessment and Plan: Potassium low on admission and was replaced. Still low this morning and will continue to replace. Repeat values later today. (8) Insulin dependent type 2 diabetes mellitus: Code(s): E11.9 - Type 2 diabetes mellitus without complications; Z79.4 - ward assistant (current) use of insulin Status: Acute Assessment and Plan: A1c 5.8. Random glucose was 184. The patient's blood glucose was reviewed on 12/08 Glucose remains reasonably well controlled. Continue AccuCheks covering with sliding scale. Hypoglycemia protocol available as needed. Continue current medications. Continue Diabetic diet (9) Hypertension: Code(s): I10 - Essential (primary) hypertension Status: Acute Assessment and Plan: Blood pressures were reviewed. She had one soft reading but otherwise normal with MAPs 70's. Diltiazem has been resumed. (10) Chronic obstructive pulmonary disease: Code(s): J44.9 - Chronic obstructive pulmonary disease, unspecified Status: Acute Assessment and Plan: No acute issues. Continue rescue inhaler available p.r.n. (11) Tobacco dependence: Code(s): F17.200 - Nicotine dependence, unspecified, uncomplicated Status: Acute A
--- NOTE | 2021-12-08 08:18 | PC.NURSE ---
This patient, Otilia Cardenas, was received from [facility] on 12/08/21 at 0805. Patient/family oriented to unit policies and routines. Silvia RN to call daughter regarding transfer.
[2021-12-08 08:24] LABS: Glucose Point of Care 191 mg/dl (65-105)
[2021-12-08] MEDS: POTASSIUM CHLORIDE 20 MEQ TABLET PO (08:41)
[2021-12-08] MEDS: INSULIN GLARGINE (*BKC) 100 UNITS/ML 18 UNITS SUB-Q ×2 (08:42→17:26)
[2021-12-08] MEDS: CHOLECALCIFEROL 1,000 UNITS TABLET 5000 UNITS PO (08:43)
[2021-12-08] MEDS: GABAPENTIN 300 MG CAPSULE 600 MG PO ×3 (08:43→17:24)
[2021-12-08] MEDS: SODIUM CHLORIDE 0.9% IV 1,000 ML 125 ML IV CONT (08:44)
[2021-12-08] MEDS: DULoxetine HCL 30 MG CAPSULE.DR PO (08:44)
[2021-12-08] MEDS: AMIODARONE 150 MG/D5W 100 ML 150 MG/100 ML BAG 600 MG IV CONT (09:01)
[2021-12-08 10:58] LABS: Potassium 3.1 mmol/L (3.4-5.0)
[2021-12-08 11:13] LABS: Iron 12 ug/dL (37-170)
[2021-12-08 11:22] LABS: Percent Iron Saturation 5 % (20-50)
[2021-12-08 11:45] LABS: Thyroid Stimulating Hormone Reflex 0.563 uIU/mL (0.465-4.68)
[2021-12-08 12:08] LABS: Folic Acid 6.6 ng/mL (2.76->20)
[2021-12-08 12:52] LABS: Glucose Point of Care 198 mg/dl (65-105)
--- NOTE | 2021-12-08 14:16 | ECG_ITS ---
Measurements Intervals [place] Rate: 139 P: [place]: 0 QRS: 42 QRSD: 84 T: 7 QT: 306 QTc: 466 Interpretive Statements ATRIAL FIBRILLATION WITH RAPID VENTRICULAR RESPONSE DELAYED PRECORDIAL R/S TRANSITION BORDERLINE ST-T WAVE ABNORMALITY- INFERIOR LEADS ABNORMAL ECG COMPARED TO ECG 12/07/2021 17:21:32 ATRIAL FIBRILLATION NOW PRESENT Electronically Signed On 12-08-2021 15:10:00 CDT by Mejia Fulton D.O.
--- NOTE | 2021-12-08 14:30 | ECG_ITS ---
Measurements Intervals [place] Rate: 163 P: [place]: 0 QRS: 170 QRSD: 77 T: 234 QT: 263 QTc: 434 Interpretive Statements ATRIAL FLUTTER/TACHYCARDIA WITH RAPID VENTRICULAR RESPONSE LIMB LEAD REVERSAL BORDERLINE R WAVE PROGRESSION, ANTERIOR LEADS ABNORMAL ECG COMPARED TO ECG 12/08/2021 13:23:51 ATRIAL FLUTTER NOW PRESENT Electronically Signed On 12-08-2021 15:09:02 CDT by Mejia Fulton D.O.
--- NOTE | 2021-12-08 14:32 | PCNSR ---
On 12/08/21, the student, Roman Morales, provided care and completed [employer] documentation on this patient. I have reviewed the student's documentation and agree with the findings.
[2021-12-08] MEDS: BETAMETHASONE/CLOTRIMAZOLE CR 15 GM TUBE 1 APPLIC TOPICAL (14:35)
[2021-12-08] MEDS: COLLAGENASE OINT 30 GM TUBE 1 APPLIC TOPICAL (14:40)
[2021-12-08] MEDS: APIXABAN 5 MG TABLET PO ×2 (14:44→17:24)
[2021-12-08] MEDS: dilTIAZem HCl INJ 25 MG/5 ML VIAL 10 MG IV PUSH (14:46)
[2021-12-08] MEDS: dilTIAZem 100 MG/100 ML 100 MG/100 ML BAG IV CONT (15:26)
[2021-12-08] MEDS: ACETAMINOPHEN 325 MG TABLET 650 MG PO (15:28)
[2021-12-08 17:15] LABS: Glucose Point of Care 206 mg/dl (65-105)
[2021-12-08] MEDS: INSULIN ASPART (*BKC) 100 UNITS/ML SUB-Q (17:24)
[2021-12-08 20:04] LABS: Glucose Point of Care 227 mg/dl (65-105)
--- NOTE | 2021-12-09 09:08 | PM.TDS ---
Transfer Discharge Sum: Prov Provider Date of admission: 12/08/21 11:02 Primary care physician: Ernesto Alfaro MD Admitting clinician: Immanuel Bustillos MD DS: Admitting Diagnosis Discharge Date 12/08/21 Admitting Diagnosis Weakness, sepsis DS: Discharge Diagnosis Discharge Diagnosis (1) Sepsis: Code(s): A41.9 - Sepsis, unspecified organism Status: Acute (2) Cellulitis of right ankle: Code(s): L03.115 - Cellulitis of right lower limb Status: Acute (3) Infected hardware in right lower extremity: Code(s): T84.7XXA - Infection and inflammatory reaction due to other internal orthopedic prosthetic devices, implants and grafts, initial encounter Status: Acute (4) Metabolic encephalopathy: Code(s): G93.41 - Metabolic encephalopathy Status: Acute (5) Chronic anemia: Code(s): D64.9 - Anemia, unspecified Status: Acute (6) Hypokalemia: Code(s): E87.6 - Hypokalemia Status: Acute (7) Insulin dependent type 2 diabetes mellitus: Code(s): E11.9 - Type 2 diabetes mellitus without complications; Z79.4 - FDC (current) use of insulin Status: Acute (8) Hypertension: Code(s): I10 - Essential (primary) hypertension Status: Acute (9) Chronic obstructive pulmonary disease: Code(s): J44.9 - Chronic obstructive pulmonary disease, unspecified Status: Acute (10) Tobacco dependence: Code(s): F17.200 - Nicotine dependence, unspecified, uncomplicated Status: Acute (11) Paroxysmal atrial fibrillation: Code(s): I48.0 - Paroxysmal atrial fibrillation Status: Acute Transfer Discharge Sum: Med Medications Active and Home Medications: Home Medications albuterol sulfate 90 mcg/actuation aerosol inhaler 2 inh inhalation PRN PRN SOB 07/14/20 [History Confirmed 12/07/21] cholecalciferol (vitamin D3) 125 mcg (5,000 unit) tablet 125 mcg PO DAILY 07/14/20 [History Confirmed 12/07/21] gabapentin 300 mg capsule 600 mg PO TID 07/14/20 [History Confirmed 12/07/21] insulin glargine 100 unit/mL (3 mL) subcutaneous pen (Lantus Solostar U-100 Insulin) 18 unit subcut BID 07/14/20 [History Confirmed 12/07/21] apixaban 5 mg tablet (Eliquis) 5 mg PO BID 12/07/21 [History Confirmed 12/07/21] diltiazem HCl 120 mg capsule,extended release 24 hr, controlled (DILT-XR) 120 mg PO DAILY 12/07/21 [History Confirmed 12/07/21] duloxetine 30 mg capsule,delayed release 30 mg PO DAILY 12/07/21 [History Confirmed 12/07/21] furosemide 40 mg tablet 40 mg PO DAILY 12/07/21 [History Confirmed 12/07/21] hydrocodone 10 mg-acetaminophen 325 mg tablet 1 tablet PO Q4-6H 12/07/21 [History Confirmed 12/07/21] Transfer Discharge Sum: Hosp Hospital Course Hospital course: Otilia Cardenas is a 71 year old female with DM , COPD and HTN here for weakness and found to have sepsis.Please see H&P for details The patient had sepsis with fever, tachycardia, elevated lactic acid, leukocytosis, and metabolic encephalopathy on admission in the setting of right ankle infection. Blood pressure remained stable. Blood and wound cultures were collected. She received approrpiate amount of IV fluids. WBC was 24K but trended down. COVID negative. Sputum cx ordered given the CXR findings of lingular infiltrate and cough. She was started on Primaxin and Vanco. Was in normal sinus rhythm on admission but went into AFib/RVR on 12/08. Suspect related to sepsis and/or hypokalemia. Eliquis was put on hold for possible upcoming surgery but this was resumed. She was moved to IMU. TSH normal. BP was soft so she was started on Amiodarone. She was continued on IV fluids. She had improvement in heart rate. BP improved. She was started on IV diltiazem. Anemia workup showing B12 level low so she was given B12. The plan from admission was to transfer her to [facility] where she has had her ankle surgeries. She was accepted but waiting for bed. A bed became available and patie
== END 2021-12-08 20:10 | disposition short-term general hospital (02) | DRG 559 ==
LOC: ANHED 17:58 → ANH2MED 19:54 → ANHIMU 12-08 07:59
PROVIDERS: Physician Assistant; Admitting Provider Internal Medicine; Emergency Provider Emergency Medicine; PCP Family Medicine; Visit Provider Internal Medicine
DX: T84.7XXA Infection and inflammatory reaction due to other internal orthopedic prosthetic devices, implants and grafts, initial encounter (principal); A41.9 Sepsis, unspecified organism; G93.41 Metabolic encephalopathy; L03.115 Cellulitis of right lower limb; I48.0 Paroxysmal atrial fibrillation; D64.9 Anemia, unspecified; E11.40 Type 2 diabetes mellitus with diabetic neuropathy, unspecified; E87.6 Hypokalemia; E78.5 Hyperlipidemia, unspecified; F41.9 Anxiety disorder, unspecified; F32.A Depression, unspecified; F17.290 Nicotine dependence, other tobacco product, uncomplicated; H91.90 Unspecified hearing loss, unspecified ear; I73.00 Raynaud's syndrome without gangrene; I10 Essential (primary) hypertension; J44.9 Chronic obstructive pulmonary disease, unspecified; Z79.4 Long term (current) use of insulin; Z20.822 Contact with and (suspected) exposure to COVID-19; Z86.14 Personal history of Methicillin resistant Staphylococcus aureus infection; Z89.022 Acquired absence of left finger(s); Z89.021 Acquired absence of right finger(s); Z90.49 Acquired absence of other specified parts of digestive tract; Z90.710 Acquired absence of both cervix and uterus; Z79.01 Long term (current) use of anticoagulants
CPT/HCPCS: 36415; 51701; 71045; 73620; 80048; 80053; 81001; 82550; 82607; 82728; 82746; 82948; 83036; 83540; 83550; 83605; 83735; 84132; 84443; 85025; 85610; 85652; 85730; 86140; 87040; 87070; 87077; 87086; 87147; 87181; 87186; 87205; 93005; 96361; 96365; 96366; 96367; 96375; 99285; A9270; C9803; G0378; J0282; J0743; J1815; J2543; J3370; J7030; U0003; U0005

== ENCOUNTER 2023-09-12 10:03 | Outpatient (CLI) | payer MEDICARE, MEDICAID, SELFPAY | END 2023-09-12 10:04 | disposition home or self-care (01) | LOC: ANHAUDIO 10:03 | PROVIDERS: PCP Family Medicine; Visit Provider Registered Nurse | DX: H90.3 Sensorineural hearing loss, bilateral (principal) | CPT/HCPCS: 92557; 92567 ==

== ENCOUNTER 2023-12-02 15:07 | Emergency (ER) | payer MEDICARE, MEDICAID, SELFPAY ==
--- NOTE | ~2023-12-02 | XR_ITS ---
EXAMINATION: XR knee RT min 4V DATE: 12/02/2023 15:46 INDICATION: Right knee pain and swelling. TECHNIQUE: 4 views of right knee were obtained. COMPARISON: None. FINDINGS: There is an old healed fracture of distal femur with internal fixation with intramedullary klaus and multiple screws. No acute fracture. There is mild osteoarthritis of medial and lateral compar tments of the knee. There is a small knee joint effusion. IMPRESSION: 1. Mild right knee osteoarthritis. 2. Small right knee joint effusion. Reviewed, dictated and finalized at location A.
--- NOTE | ~2023-12-02 | XR_ITS ---
XR chest 2V Ordering provider: Mercedes Steward APRN History: 73 years Female with . coarse breath sounds . Comparison: December 07, 2021 FINDINGS: MEDIASTINUM: The cardiac silhouette is not enlarged. LUNGS: No infiltrates, effusions or pneumothorax. Fibrotic changes of the lungs. OTHER: No free air under the diaphragm. Old healed rib fracture in the right mid thorax. Degenerative changes of the spine with multilevel de generative disc disease. IMPRESSION: No acute cardiopulmonary pathology Reviewed, dictated and finalized at location A.
[2023-12-02 15:08] VITALS: BP 139/40; PULSE 78; RESP 18; TEMP 36.7; O2SAT 100
[2023-12-02 19:00] VITALS: BP 128/43; PULSE 67; RESP 16; O2SAT 99
[2023-12-02] MEDS: HYDROcodone/acetaminophen (*CRX) 5-325 MG TABLET 1 TAB PO (19:01)
--- NOTE | 2023-12-02 19:01 | ED.FALL ---
HPI - Fall General Chief Complaint: Fall Stated Complaint: fall yesterday, right knee pain Time Seen by Provider: 12/02/23 17:02 Source: patient and family Mode of arrival: wheelchair Limitations: other ([facility] [place]) History of Present Illness HPI Narrative: Patient is a 57-year-old female presents the ER after a fall yesterday. Her daughter reports she was sitting on the toilet and fell forward. She hit her R knee on the bathtub in front of her. It is the same knee she has had surgery on, hardware removed, and an infection. Patient endorses R knee pain with movement and at rest. She denies pain in the back of her R leg, fever, or shortness of breath. Related Data Home Medications Medication Instructions Recorded Confirmed albuterol sulfate 90 mcg/actuation 2 inh inhalation PRN PRN SOB 07/14/20 12/07/21 aerosol inhaler cholecalciferol (vitamin D3) 125 125 mcg PO DAILY 07/14/20 12/07/21 mcg (5,000 unit) tablet gabapentin 300 mg capsule 600 mg PO TID 07/14/20 12/07/21 insulin glargine 100 unit/mL (3 18 unit subcut BID 07/14/20 12/07/21 mL) subcutaneous pen (Lantus Solostar U-100 Insulin) apixaban 5 mg tablet (Eliquis) 5 mg PO BID 12/07/21 12/07/21 diltiazem HCl 120 mg 120 mg PO DAILY 12/07/21 12/07/21 capsule,extended release 24 hr, controlled (DILT-XR) duloxetine 30 mg capsule,delayed 30 mg PO DAILY 12/07/21 12/07/21 release furosemide 40 mg tablet 40 mg PO DAILY 12/07/21 12/07/21 hydrocodone 10 mg-acetaminophen 1 tablet PO Q4-6H 12/07/21 12/07/21 325 mg tablet Allergies Allergy/AdvReac Type Severity Reaction Status Date / Time eucalyptus Allergy Intermediate BLISTERS Verified 12/02/23 15:53 quinine Allergy Intermediate HIVES Verified 12/02/23 15:53 cephalexin Allergy Unknown Itching Verified 12/02/23 15:53 levofloxacin Allergy Unknown Unknown Verified 12/02/23 15:53 menthol Allergy Unknown BLISTERS Verified 12/02/23 15:53 Quinolones Allergy Unknown Verified 12/02/23 15:53 aspirin AdvReac Unknown Vomiting Verified 12/02/23 15:53 Review of Systems Review of Systems: All systems reviewed & are unremarkable except as noted in HPI and below PMFSH Past Medical History Medical History Anxiety Chronic anemia Chronic obstructive pulmonary disease Depression Hearing loss Hyperlipidemia Hypertension Insulin dependent type 2 diabetes mellitus MRSA infection MRSA infection of the right hand in October 2013. 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 Amputation of digit of right hand Secondary to osteomyelitis. History of appendectomy History of carpal tunnel release History of section History of exploratory laparotomy History of hysterectomy History of open reduction and internal fixation (ORIF) procedure (03/2021) Repair of right ankle fracture per Dr. Crisot Lewis at [facility] in [place]. Status post excision of lipoma Family History Family History Father Diabetes mellitus Family history of malignant neoplasm Mother Family history of malignant neoplasm Social History Social History Social History: Surrogate medical decision maker: Kavitha Sterling, daughter. Code status: Full code. Smoking packs per day: 2 Smoking cigarettes per day: 40.0 Years smoked: 50 Smoking pack-years: 100.00 Smoking status: Current every day smoker Tobacco type: cigarettes and e-cigarettes/vaping Additional smoking assessment comments: Up to 2 packs per day at one point. Still vapes. Alcohol intake: never Substance use: never Living arrangements: alone Additional living arrangements comments: The patient l
[2023-12-02 20:34] VITALS: BP 128/49; PULSE 66; RESP 20; O2SAT 96
== END 2023-12-02 20:36 | disposition home or self-care (01) ==
PROVIDERS: Emergency Provider Registered Nurse; PCP Family Medicine
DX: S89.91XA Unspecified injury of right lower leg, initial encounter (principal); M25.461 Effusion, right knee; I10 Essential (primary) hypertension; I48.0 Paroxysmal atrial fibrillation; I73.00 Raynaud's syndrome without gangrene; E11.40 Type 2 diabetes mellitus with diabetic neuropathy, unspecified; E78.5 Hyperlipidemia, unspecified; J44.9 Chronic obstructive pulmonary disease, unspecified; D64.9 Anemia, unspecified; F17.290 Nicotine dependence, other tobacco product, uncomplicated; Z86.14 Personal history of Methicillin resistant Staphylococcus aureus infection; Z89.022 Acquired absence of left finger(s); Z89.021 Acquired absence of right finger(s); Z90.710 Acquired absence of both cervix and uterus; W18.12XA Fall from or off toilet with subsequent striking against object, initial encounter; Z79.4 Long term (current) use of insulin; Z79.899 Other long term (current) drug therapy; Z79.01 Long term (current) use of anticoagulants
CPT/HCPCS: 71046; 73564; 99284; A9270

== ENCOUNTER 2024-04-30 22:54 | Inpatient (IN) | payer MEDICARE, MEDICAID, SELFPAY ==
--- NOTE | ~2024-04-30 | XR_ITS ---
Exam: Abdomen 1V HISTORY: constipation COMPARISON: None. TECHNIQUE: Supine images of the abdomen FINDINGS: Air opacifies the majority of the colon, with the exception of the rectosigmoid colon No significant fecal stasis is appreciated. Lung bases are unremarkable. Bones and soft tissues are unremarkable. IMPRESSION: No significant fecal stasis, as detailed above. Reviewed, dictated and finalized at location A. EL SCRAPPER
--- NOTE | ~2024-04-30 | XR_ITS ---
EXAMINATION: XR chest 1V portable DATE: 05/05/2024 10:01 INDICATION: Worsening hypoxia with pulmonary congestion TECHNIQUE: frontal view of the chest was obtained. COMPARISON: Chest radiograph and CT dated 05/01/2024 FINDINGS: There are persistent opacities at the left mid to lower and right lower lung zones and at the periphe ry of the left upper lung zone which could represent atelectasis or pneumonia. No pleural effusion or pneumothorax. Heart size is normal. Surgical clips at the left axilla and along the left chest wall related to prior excisional left breast biopsy and left axillary lymph node resection. Would right ri b fracture. IMPRESSION: 1. No change in patchy airspace opacities throughout the left lung and in the right lower lung zone w hich could represent atelectasis or pneumonia. Reviewed, dictated and finalized at location A. ETING COMMUNICATION MANAGER IMPRESSION: 1. No change in patchy airspace opacities throughout the left lung and in the r ight lower lung zone which could represent atelectasis or pneumonia.
--- NOTE | ~2024-04-30 | XR_ITS ---
Portable chest x-ray Comparison: 12/02/2023 Clinical History: Cough, influenza Findings: There is patchy airspace consolidation at the left lung base and peripheral left midlung. Probable central pulmonary venous congestive changes. Cardiomediastinal silhouette is stable. Bones and soft tissues are unremarkable. Impression: Patchy left lung airspace disease, as above, suspicious for pneumonia. Probable mild central congestive changes. Reviewed, dictated and finalized at location . US ADMINISTRATIVE ASSISTANT Impression: Patchy left lung airspace disease, as above, suspicious for pneumonia. Probable mild central congestive changes.
--- NOTE | ~2024-04-30 | CT_ITS ---
Clinical Indication: Tachycardia, elevated d-dimer CT Scan of the Chest with Contrast: Technique: Contiguous sections were acquired throughout the chest after intravenous administration of 100 cc of Omnipaque 350. Dose reduction technique was used on this scan by utilizing automated expos ure control and iterative reconstruction technique. The dose-length product (DLP) was 423.77 mGy-cm. Findings: There is no evidence of any significant mediastinal, hilar or axillary lymphadenopathy. There is no f illing defect in the pulmonary arterial tree to suggest pulmonary embolus. There is no evidence of ao rtic dissection or aneurysm. There is no evidence of pleural or pericardial effusion. There is peripheral airspace opacification in the left upper lobe, which could possibly represent pos tradiation change. There are focal areas of consolidation the peripheral left lower lobe and in the r ight middle lobe, which could reflect areas of atelectasis or pneumonia. Images through the upper abdomen reveal no abnormalities. There is diffuse increased density of the left breast with extensive left breast skin thickening. Sub tle sclerotic lesion present in T11, indeterminate. Impression: Diffusely increased density of the left breast with extensive left breast skin thickening. Appearance raises the possibility of inflammatory breast carcinoma. Asymmetric fluid overload would be a potent ial alternative consideration. Physical exam and possible mammographic workup recommended, if clinica lly indicated and not recently performed. There is airspace consolidation the peripheral left upper lobe and right middle lobe, which could ref lect areas of atelectasis versus pneumonia. Correlate clinically. Peripheral airspace disease in the left upper lobe, suggestive of possible postradiation change versu s additional pneumonia. Reviewed, dictated and finalized at location M. EL OT Impression: Diffusely increased density of the left breast with extensive left breast skin thickening. Appearance raises the possibility of inflammatory breast carcinoma. Asymmetric fluid overload would be a potential alternative consideration. Phys ical exam and possible mammographic workup recommended, if clinically indicated and not recently performed. There is airspace consolidation the peripheral left upper lobe and right middle lobe, which could reflect areas of atelectasis versus pneumonia. Correlate cli nically. Peripheral airspace disease in the left upper lobe, suggestive of possible post radiation change versus additional pneumonia.
[2024-04-30 23:01] VITALS: BP 123/59; PULSE 148; RESP 18; TEMP 38.8; O2SAT 90
--- NOTE | 2024-04-30 23:23 | ED_ITS ---
HPI - General Adult General Chief complaint: Recheck/Abnormal Lab/Rx Stated complaint: SHAKEY, UNSTEADY GAIT Time Seen by Provider: 04/30/24 23:14 Source: patient Limitations: no limitations History of Present Illness HPI narrative: Patient presents with report of shakiness and an unsteady gait for approximately 1 week. She had the flu last week. She denies any dizziness or lightheadedness but rather describes it as weakness. She has had a dry cough. Denies underlying respiratory conditions. She was diagnosed with Flu A at urgent care last week but states she was not prescribed any medications nor has she been taking OTC meds, not even tylenol or ibuprofen. She lives with her daughter who has also been sick. She had a fever at home. She reports getting her flu shot this year. No nausea/vomiting. Smokes <1/2 PPD. She has felt like she is trembling. No chest pain or shortness of breath. Related Data Home Medications ?Medication ?Instructions ?Recorded ?Confirmed ?Last Taken ?Type albuterol sulfate 90 mcg/actuation 2 inh inhalation PRN PRN SOB 07/14/20 12/07/21 Unknown History aerosol inhaler cholecalciferol (vitamin D3) 125 125 mcg PO DAILY 07/14/20 12/07/21 07/23/20 History mcg (5,000 unit) tablet gabapentin 300 mg capsule 600 mg PO TID 07/14/20 12/07/21 07/23/20 History insulin glargine 100 unit/mL (3 18 unit subcut BID 07/14/20 12/07/21 07/23/20 History mL) subcutaneous pen (Lantus Solostar U-100 Insulin) apixaban 5 mg tablet (Eliquis) 5 mg PO BID 12/07/21 12/07/21 Unknown History diltiazem HCl 120 mg 120 mg PO DAILY 12/07/21 12/07/21 Unknown History capsule,extended release 24 hr, controlled (DILT-XR) duloxetine 30 mg capsule,delayed 30 mg PO DAILY 12/07/21 12/07/21 Unknown History release furosemide 40 mg tablet 40 mg PO DAILY 12/07/21 12/07/21 Unknown History hydrocodone 10 mg-acetaminophen 1 tablet PO Q4-6H 12/07/21 12/07/21 Unknown History 325 mg tablet Allergies Allergy/AdvReac Type Severity Reaction Status Date / Time eucalyptus Allergy Intermediate BLISTERS Verified 12/02/23 15:53 quinine Allergy Intermediate HIVES Verified 12/02/23 15:53 cephalexin Allergy Unknown Itching Verified 12/02/23 15:53 levofloxacin Allergy Unknown Unknown Verified 12/02/23 15:53 menthol Allergy Unknown BLISTERS Verified 12/02/23 15:53 Quinolones Allergy Unknown Verified 12/02/23 15:53 aspirin AdvReac Unknown Vomiting Verified 12/02/23 15:53 [facility] Past Medical History Medical History Anxiety Chronic anemia Chronic obstructive pulmonary disease Depression Hearing loss Hyperlipidemia Hypertension Insulin dependent type 2 diabetes mellitus MRSA infection MRSA infection of the right hand in October 2013. 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 Amputation of digit of right hand Secondary to osteomyelitis. History of appendectomy History of carpal tunnel release History of section History of exploratory laparotomy History of hysterectomy History of open reduction and internal fixation (ORIF) procedure (03/2021) Repair of right ankle fracture per Dr. Cristo Lewis at [facility] in [place]. Status post excision of lipoma Family History Family History Father Diabetes mellitus Family history of malignant neoplasm Mother Family history of malignant neoplasm Social History Social History (Updated 05/01/24 @ 09:58 by Charline Garcia MD) Social History: Surrogate medical decision maker: Kavitha Sterling, daughter. Code status: Full code. Smoking packs per day: 0.5 Smoking cigarettes per day: 10.0 Years smoked: 50 Smoking pack-years: 25.00 Smoking status: Current every day smoker Tobacco type: cigarettes and e-cigarettes/vaping Additional smoking assessment comments: Up to 2 PPD at one point (for 50 years, 100 pack years) . Still vapes. Alcohol intake: never Substance use: never Living arrangements: with family Additional living arrangements comments: The patient lives with her daughter Kavitha in [place]. Spiritual care concerns: No Exam 2 Narrative: GENERAL: Well-appearing, well-nourished, and in no acute distress. HEAD: Normocephalic, atraumatic. EYES: Non injected, non icteric ENT: Nares clear, no rhinorrhea or epistaxis. Hearing aid(s) NECK: Supple. CHEST: Speaking in full sentences. No respiratory distress. Coarse rhonchi. HEART: IRRegularly irregular rate and rhythm. . ABDOMEN: Soft, nondistended. EXTREMITIES: Normal range of motion. No lower extremity edema. SKIN: Warm, dry, no rash. NEURO: No focal deficits. Alert and oriented x3. PSYCH: Normal mood and affect. Course Vital Signs Vital signs: Vital Signs Temperature 101.9 F H 04/30/24 23:01 Pulse Rate 148 H 04/30/24 23:01 Respiratory Rate 18 04/30/24 23:01 Blood Pressure 123/59 L 04/30/24 23:01 Pulse Oximetry 90 04/30/24 23:01 Oxygen Delivery Room Air 04/30/24 23:01 Temperature 98.8 F 05/01/24 04:31 Pulse Rate 116 H 05/01/24 07:30 Respiratory Rate 22 H 05/01/24 07:30 Blood Pressure 112/70 05/01/24 07:30 Pulse Oximetry 94 05/01/24 07:31 Oxygen Delivery Nasal Cannula 05/01/24 07:31 Oxygen Flow Rate 3 05/01/24 07:31 Medical Decision Making MDM Narrative Medical decision making narrative: Patient presents with report of shakiness, unsteady gait, weakness, and trembling for 1 week. Diagnosed with Flu A last week at urgent care but states she has not been taking any medications for this. In the emergency department she is febrile at 101.9? F, tachycardic at 148 beats per minute and reportedly saturating 90% on room air with an acceptable BP (though mildly low diastolic). Patient has not taken any medications at home for her symptoms. Will give 1 L IV fluids for tachycardia and acetaminophen for fever as well as Tessalon Perles and guaifenesin for cough to start. Will also obtain labs and imaging. Supplemental O2 ordered. She has leukopenia and thrombocytopenia. The leukopenia appears very pronounced given the fact that previous white blood cell count had been in the 20s although awhile ago. In addition, although her hemoglobin is normal, it is a in elevation from previous thus possible hemoconcentration. Patient has hyperglycemia without anion gap acidosis. Her hyponatremia corrects to 135-136 in the setting of this. Also elevated AST, isolated. BNP is elevated. No prior for comparison but with the cardiomegaly on chest x- ray, this is concernign for heart failure and this is not documented as a diagnosis in chart although it does appear she was prescribed furosemide. There is a delay in obtaining EKG. Patient has a known history of paroxysmal atrial fibrillation. She has a rapid ventricular response though at the time of EKG, 116bpm and 108-117 on the monitor while assessing, occasionally to high 120s. Will give her 10 mg IV push of diltiazem, not the full 0.25 mg/kg given she is only at times not rate controlled.. Diltiazem is her home medicine. She denies a history of atrial fibrillation, though I suspect this is due to limited insight/knowledge. She had also denied any underlying respiratory conditions but there is a diagnosis of COPD and it appears patient used to be a heavy smoker, 2 PPD for 50 years (states she now smokes <1/2 PPD). She has evidence of possible pneumonia on her CT scan and fever and symptoms support this. Will start ceftriaxone and azithromycin. She will require admission given her new O2 requirement. Blood cultures have already been obtained. She continues to appear dehydrated and another L fluid to be ordered. Discussed with Dr. Oreilly. Will order Tamilfu 1 time dose 75mg and he will order the rest/subsequent. Her atrial fibrillation is becoming less rate controlled at this time again, in the high 120s and occasionally 130s. It appears she is on diltiazem 120 mg once daily extended-release. This is ordered now. He is recommending a MRSA PCR swab and IMU with telemetry. Pharmacy called and Tamiflu will need renally dosed. Vital Signs Vital Signs: Vital Signs Temperature 101.9 F H 04/30/24 23:01 Pulse Rate 148 H 04/30/24 23:01 Respiratory Rate 18 04/30/24 23:01 Blood Pressure 123/59 L 04/30/24 23:01 Pulse Oximetry 90 04/30/24 23:01 Oxygen Delivery Room Air 04/30/24 23:01 Temperature 98.8 F 05/01/24 04:31 Pulse Rate 116 H 05/01/24 07:30 Respiratory Rate 22 H 05/01/24 07:30 Blood Pressure 112/70 05/01/24 07:30 Pulse Oximetry 94 05/01/24 07:31 Oxygen Delivery Nasal Cannula 05/01/24 07:31 Oxygen Flow Rate 3 05/01/24 07:31 Lab Data Lab results reviewed: Yes I reviewed the patient's lab results. 05/01/24 00:14 05/01/24 00:14 Labs: Lab Results 04/30/24 05/01/24 05/01/24 Range/Units 23:09 00:14 03:52 WBC 4.0 L (4.5-10.0) K/mm3 RBC 4.15 L (4.2-5.4) M/mm3 Hgb 13.0 D (12.0-15.0) g/dL Hct 40.8 (37.0-47.0) % MCV 98.3 (80-100) fl MCH 31.3 (26-34) pg MCHC 31.9 L (32-36) g/dl RDW 14.6 H (11.5-14.5) % Plt Count 127 L (150-375) k/mm3 MPV 11.9 H (7.4-10.4) fl Immature Gran % (Auto) 0.5 (0-0.5) % Neut % (Auto) 71.2 (45.5-73.1) % Lymph % (Auto) 16.5 L (18.3-44.2) % [place] % (Auto) 11.5 H (2.6-8.5) % Eos % (Auto) 0.0 (0-4.4) % Baso % (Auto) 0.3 (0.2-1.2) % Lymph # (Auto) 0.66 L (0.9-3.2) K/mm3 [place] # (Auto) 0.5 (0.1-0.6) K/mm3 Eos # (Auto) 0.0 (0-0.3) K/mm3 Baso # (Auto) 0.0 (0.0-0.1) K/mm3 Abs Immat Gran (auto) 0.02 (0.00-0.031) K/mm3 Absolute Neuts (auto) 2.8 (1.3-6.7) K/mm3 Absolute Nucleated RBC 0.000 (0.0-0.012) K/mm3 Nucleated RBC % 0.0 (0.0-0.2) % D-Dimer 1.68 H (<0.48) ug/mL Sodium 133 L (137-145) mmol/L Potassium 3.6 (3.4-5.0) mmol/L Chloride 98 (98-107) mmol/L Carbon Dioxide 25 (22-30) mmol/L Anion Gap 10 (4-12) mmol/L BUN 12 (7-17) mg/dL Creatinine 0.78 (0.7-1.0) mg/dL Estim Creat Clear Calc 53 ml/min Estimated GFR > 60 (59 - ) Glucose 223 H (65-110) mg/dL Lactic Acid 1.8 (0.7-2.0) mmol/L Calcium 8.6 (8.4-10.2) mg/dL Magnesium 1.9 (1.6-2.3) mg/dL Total Bilirubin 0.5 (0.2-1.3) mg/dL AST 47 H (14-36) U/L ALT 32 (6-35) U/L Alkaline Phosphatase 119 (38-126) U/L Total Creatine Kinase 67 (30-135) U/L NT-Pro-B Natriuret Pep 1800 H (19.9-100) pg/mL Total Protein 7.0 (6.3-8.2) g/dL Albumin 3.6 (3.5-5.1) g/dL TSH (Reflex) 2.280 (0.465-4.68) uIU/mL Urine Color Yellow (Yellow) Urine Appearance Clear (Clear) Urine pH 6.5 (5.0-9.0) Ur Specific [place] 1.038 H (1.001-1.035) Urine Protein Negative (Negative) mg/dL Urine Glucose (UA) Negative (Negative) mg/dL Urine Ketones Negative (Negative) mg/dL Ur Blood (Man) 1+ H (Negative) Urine Nitrate Negative (Negative) Urine Bilirubin Negative (Negative) Urine Urobilinogen 0.2 (<2.0) mg/dL Leukocyte Esterase Rfl Negative (Negative) KAL/UL Urine RBC 6-10 H (0-2) /hpf Urine WBC 0-5 (0-3) /hpf Ur Squamous Epith Cells None seen (Few) /hpf Urine Bacteria None seen /hpf Urine Casts 0-2 Influenza A (RT-PCR) Positive A (Negative) Influenza B (RT-PCR) Negative (Negative) RSV (RT-PCR) Negative (Negative) SARS-CoV-2 RNA (RT-PCR) Negative (Negative) Imaging Data Attestation: I personally reviewed and interpreted this imaging study as follows: My impression: Cardiomegaly and haziness on the left, both basilar and in upper davies, concerning for pleural effusion. Radiologist's impression: CTA chest impressions stat rad: Respiratory motion limits evaluation. No evidence of acute main/proximal central pulmonary embolism. Middle, lingula and left lobe consolidations, atelectasis and/or pneumonia. Small hiatal hernia. Distal esophageal mural thickening, inflammation versus under distention. ECG Data EKG #1: Attestation: I personally reviewed and interpreted this ECG as follows: ECG completion date: 05/01/24 ECG completion time: 03:17 Interpretation: Irregularly irregular rhythm at a rate of 116 beats per minute. QRS 78. QT/QTC 297/366. Good R-wave progression across the precordial leads. T-wave inversion in lead 3 but otherwise upright in normal in contiguous inferior leads 2 and AVF. No other T-wave inversions. Discharge Plan Discharge Clinical Impression: Leukopenia, Thrombocytopenia, Hyperglycemia due to diabetes mellitus, Elevated AST (SGOT), Pneumonia, Hypoxia Patient Disposition: Still a Patient Condition: Serious
[2024-04-30 23:30] VITALS: BP 119/81; PULSE 152; RESP 23; O2SAT 92
[2024-04-30 23:49] LABS: Influenza A QL RT-PCR Positive (Negative); Influenza B QL RT-PCR Negative (Negative); RSV RNA, RT-PCR Negative (Negative); SARS-CoV-2 RNA PCR Negative (Negative)
[2024-05-01] VITALS (20 sets, daily range): BP systolic 101–142; BP diastolic 55–97; PULSE 63–147; RESP 14–26; TEMP 36.5–37.7; O2SAT 90–99; BMI 28.8
--- NOTE | 2024-05-01 00:06 | ECG_ITS ---
Test Date: 2024-05-01 03:17:16 Measurements Intervals [place] Rate: 116 P: 0 PA: 0 QRS: 17 QRSD: 78 T: -3 QT: 297 QTc: 413 Interpretive Statements ATRIAL FIBRILLATION WITH RAPID VENTRICULAR RESPONSE LOW QRS VOLTAGE IN LIMB LEADS MINIMAL Q WAVES- INFERIOR LEADS ABNORMAL ECG No previous ECG available for comparison Electronically Signed On 05-01-2024 10:34:20 SHOPFITTER by Mejia Fulton D.O.
--- OUTSIDE RECORDS SUMMARY | 2024-05-01 00:26 | XMS_ITS | Patient Health Record ---
Author Organization [facility] Address [address] [place], [place] [id number] Care Team Providers Care Make Ready Worker Name Role Phone Ernesto Alfaro Unavailable Unavailable WALECLARKE MoIC Unavailable [phone] Allergies Allergen (clinical drug ingredient) Drug/Non Drug Allergy documented on EMR Reaction Allergy Type Onset Date Status Keflex Unknown Drug Allergy Active aspirin Aspirin Unknown Drug Allergy Active menthol Menthol Unknown Drug Allergy Active Reason For Referral No Information Encounters Encounter Location Date Provider Diagnosis [facility] [address] [place], [place] [id number] 04/23/2024 JONNA SNWALEK Cellulitis of right lower limb L03.115 ; Venous insufficiency (chronic) (peripheral) I87.2 ; Tinea unguium B35.1 ; Pain in right toe(s) M79.674 ; Pain in left toe(s) M79.675 ; Atherosclerosis of [place] arteries of extremities with intermittent claudication, bilateral legs I70.213 and Type 2 diabetes mellitus with other circulatory complications E11.59 [facility] [address] [place], [place] [id number] 01/23/2024 JONNA YOUSUFK Tinea unguium B35.1 ; Pain in right toe(s) M79.674 ; Pain in left toe(s) M79.675 ; Atherosclerosis of [place] arteries of extremities with intermittent claudication, bilateral legs I70.213 and Type 2 diabetes mellitus with other circulatory complications E11.59 Assessments Encounter Date Diagnosis (ICD Code) Assessment Notes Treatment Notes Treatment Clinical Notes Section Notes 01/23/2024 Tinea unguium (ICD-10 - B35.1) NAIL DEBRIDEMENT: Nails 1-5 Bilateral were debrided extensively with nail nippers and emery board, reducing length and girth to pink healthy tissue with any subungual debris and necrotic tissue removed 04/23/2024 Venous insufficiency (chronic) (peripheral) (ICD-10 - I87.2) Edema Recommendations: Advised patient on edema treatment recommendations. Recommendation for periodic elevation of feet and lower legs through the day. Recommend support compression hose. Recommend dietary restrictions salt intake. Followup with family physician for potential diuretic management if needed. Compression Stocking: The patient was given a prescription for compression stockings for edema management. Advised patient to elevate feet at rest. Tubigrip: Tubigrip compression applied for support, compression and edema control. 04/23/2024 Cellulitis of right lower limb (ICD-10 - L03.115) Infection Protocol: Patient instructed to observe foot for signs and symptoms of infection, including but not limited to: increased redness and warmth to the area, increased drainage from the area, foul odor, and/or presence of fever/chills/nate sea/vomiting. If patient experiences any of the above they are to call the office immediately, if someone is not present in the office then proceed to the nearest ER. 01/23/2024 Pain in right toe(s) (ICD-10 - M79.674) 04/23/2024 Tinea unguium (ICD-10 - B35.1) NAIL DEBRIDEMENT: Nails 1-5 Bilateral were debrided extensively with nail nippers and emery board, reducing length and girth to pink healthy tissue with any subungual debris and necrotic tissue removed 01/23/2024 Pain in left toe(s) (ICD-10 - M79.675) 04/23/2024 Pain in right toe(s) (ICD-10 - M79.674) 04/23/2024 Pain in left toe(s) (ICD-10 - M79.675) 01/23/2024 Atherosclerosis of [place] arteries of extremities with intermittent claudication, bilateral legs (ICD-10 - I70.213) 04/23/2024 Atherosclerosis of [place] arteries of extremities with intermittent claudication, bilateral legs (ICD-10 - I70.213) 01/23/2024 Type 2 diabetes mellitus with other circulatory complications (ICD-10 - E11.59) Diabetic Foot Care: The patient was educated on diabetes and the lower extremity. The patient was instructed to check his feet daily to report any problems or signs of infection immediately. The patient was provided written information on Diabetic Foot Care as well as the Amputation Prevention Guide. 04/23/2024 Type 2 diabetes mellitus with other circulatory complications (ICD-10 - E11.59) Diabetic Foot Care: The patient was educated on diabetes and the lower extremity. The patient was instructed to check his feet daily to report any problems or signs of infection immediately. The patient was provided written information on Diabetic Foot Care as well as the Amputation Prevention Guide. Plan Of Treatment Next Appt Details Provider Name:JONNA IVIS, 08:40:00 AM, [address], [facility], [place], [place], [id number], Provider Name:JONNA DOWNINGGIOVANNI, 08:30:00 AM, [address] [place], [place], [id number], Insurance Providers Payer Name Payer Address Payer Phone Subscriber Number Group Number Insured Name Patient Relationship to Insured Coverage Start Date Coverage End Date Medicare Part B [facility] [address] [place] [id number] Otilia Lopez Self - patient is the insured
--- OUTSIDE RECORDS SUMMARY | 2024-05-01 00:26 | XMS_ITS | CONTINUITY OF CARE DOCUMENT ---
Author Name abhaylesleycody Address Unknown Organization [facility] Address [address] [facility] [address] [place] [address] Phone [phone] Care Team Providers Care Agent Name Role Phone Chandan SANABRIA, Shanda Unavailable RAYMOND VILLEGAS MD Unavailable RAYMOND VILLEGAS MD Unavailable [phone] INSURANCE PROVIDERS Payer name Policy type / Coverage type [place] red republican ID [place] [employer] Medicare [id number] HEALTHCARE AND FAMILY SERVICES Medicaid 1 [id number]
--- OUTSIDE RECORDS SUMMARY | 2024-05-01 00:27 | XMS_ITS | Clinical Summary ---
Author Organization [facility] [employer] Address [address] [facility] [place] [address] Care Team Providers Care Manager Process Excellence Name Role Phone Ernesto Alfaro MD Primary Care Provider Source Comments [facility],non-owned Affiliates and Associated Physician Practices is amultiple site organization consisting of ambulatory clinics and hospital sitesin [place], [place], [place] and [place]. This disclosure is being madepursuant to the Care Everywhere program and may not contain all information available regarding this patient. Last updated 17.[facility] [employer] Allergies Active Allergy Reactions Criticality Noted Date Comments Aspirin Nausea and/or Vomiting Medium 04/08/2017 Other reaction(s): Other (See Comments) Nosebleeds. Other reaction(s): Other (See Comments) Other reaction(s): Other (See Comments) Nosebleeds. Nose bleed and vomit Cephalexin Itching,Other Medium 04/08/2017 Other reaction(s): Other (See Comments) Yeast Infection. Tolerated cefepime through June 2021 x 6 wks, dec 2021 Other reaction(s): Other, Other (See Comments) Other reaction(s): Other (See Comments) Yeast Infection. Tolerated cefepime through June 2021 x 6 wks, dec 2021 Yeast infection Eucalyptus Oil Rash Medium 05/14/2021 blisters Levofloxacin Unknown 05/14/2021 Menthol Other 07/20/2021 Other reaction(s): Other Menthol Eucalyptus Flavor Rash,Itching,Other Medium 05/14/2021 blisters Other reaction(s): Other blisters Quinine Rash High 04/13/2017 Other reaction(s): Hives Quinolones Unknown,Itching High 04/25/2021 Other reaction(s): Hives Other reaction(s): Unknown Medications * Be aware that medications may not be up to date on this document. Alwaysverify current medications with the patient. Medication Sig Dispensed Refills Start Date End Date Status HYDROcodone-acet aminophen (NORCO) 5-325 MG tablet Take 1 tablet by mouth every 8 hours as needed for Pain 15 tablet 0 Active apixaban (ELIQUIS) 5 MG tablet Take 1 (one) tablet by mouth 2 times daily 2 Active gabapentin (Neurontin) 300 MG capsule Take 1 (one) capsule by mouth 3 times daily 3 Active insulin aspart (NovoLOG) pen Inject 0 (zero) Units to 12 (twelve) Units subcutaneously 3 times daily with meals 3 Active DULoxetine (Cymbalta) 60 MG capsule Take 1 (one) capsule by mouth once daily 30 capsule 3 Active insulin glargine (Lantus/Semglee) 100 units/mL pen Inject 15 (fifteen) Units subcutaneously at bedtime 200 mL 3 Active atorvastatin (Lipitor) 10 MG tablet Take 1 (one) tablet by mouth at bedtime 30 tablet 3 Active mometasone (Elocon) 0.1 % cream Apply to affected area once daily 45 g 3 4 Active dilTIAZem HCl Coated Beads (DILTIAZEM CD PO) Pt unsure of dose Active acetaminophen (Tylenol) 500 MG capsule Take 2 (two) capsules by mouth every 6 hours as needed for Fever or Pain 200 capsule 1 4 Active ibuprofen (Advil) 200 MG capsule Take 2 (two) capsules by mouth every 6 hours as needed for Pain 200 capsule 1 4 Active docusate sodium (Colace) 100 MG capsule Take 1 (one) capsule by mouth once daily 30 capsule 1 4 Active ondansetron (Zofran) 8 MG tablet Take 1 (one) tablet by mouth every 6 hours as needed for Nausea/Vomiting 20 tablet 1 4 Active oxyCODONE, immediate release, (Roxicodone) 5 MG tabletIndication s:Open knee wound, right, sequela Take 1 (one) tablet by mouth every 6 hours as needed 30 tablet 4 Active polyethylene glycol 3350 (Miralax) 17 GM/SCOOP powder Take 17 (seventeen) g by mouth once daily 4 Active amoxicillin-clav ulanate (Augmentin) 875-125 MG tablet Take 2 (two) tablets by mouth 2 times daily 14 tablet 4 Active diphenoxylate-at ropine (Lomotil) 2.5-0.025 MG tabletIndication s:Diarrhea, unspecified type Take 1 (one) tablet by mouth 3 times daily as needed for Diarrhea 10 tablet 2 4 Active prochlorperazine (Compazine) 10 MG tabletIndication s:Cancer Chemotherapy-Ind uced Nausea and Vomiting Take 1 (one) tablet by mouth every 8 hours as needed for Nausea/Vomiting Reasons: Nausea and Vomiting caused by Cancer Chemotherapy 30 tablet 1 4 Active albuterol HFA (Proventil; Ventolin; Proair) 108 (90 Base) MCG/ACT inhaler Inhale 2 (two) puffs by mouth every 4 hours as needed 4 Active methylPREDNISolo ne (Medrol Dosepak) 4 MG tabletIndication s:Viral upper respiratory tract infection Take by mouth as directed <!--EPICS-->Follow package insert dosing for six day supply.<!--EPICE--> 21 tablet 5 Active benzonatate (Tessalon) 200 MG capsuleIndicatio ns:Acute cough Take 1 (one) capsule by mouth 3 times daily as needed for Cough 60 capsule 5 Active ALBUTEROL IN Inhale by mouth as needed 04/05/19 25 Discontinue d(List Clean-Up) atorvastatin (Lipitor) 10 MG tablet Take 1 (one) tablet by mouth at bedtime 4 04/05/19 25 Discontinue d(List Clean-Up) amoxicillin-clav ulanate (Augmentin) 875-125 MG tabletIndication s:Viral upper respiratory tract infection Take 1 (one) tablet by mouth 2 times daily for 10 days 20 tablet 5 04/19/19 25 Active Problems Problem Noted Date Diagnosed Date Acute cough 04/17/2024 Encounter for immunotherapy 04/06/2024 Breast cancer 11/08/2023 Diarrhea, unspecified type 11/08/2023 Diabetes 1.5, 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 Overview (11/08/2023): Insulin dependent, last A1C 5.6, 03/2019 Hard of hearing 11/08/2023 Open knee wound, right, sequela 10/25/2023 Elevated erythrocyte sedimentation rate 06/05/19 CRP elevated 06/05/2023 Foot pain, right 06/05/2023 Cellulitis of right lower extremity 06/05/2023 OK (acute kidney injury) 06/05/2023 Cellulitis 02/22/2023 High risk for chemotherapy-induced infectious co mplication 02/15/2023 Chemotherapy-induced neutropenia 02/15/2023 Anemia 01/07/2023 Thrombocytopenia, secondary 01/07/2023 Trauma 01/04/2023 Other closed fracture of dis nir end of right femur, initial encounter 01/04/2023 Hyperglycemia 12/17/2022 Type 2 diabetes mellitus wit h hyperglycemia, unspecified whether long-term insulin use 12/17/2022 Nausea and vomiting, unspecified vomiting type 0 12/17/2022 Malignant neoplasm of upper- outer quadrant of left breast in female, estrogen receptor negative 11/15/2022 Cancer Staging:Clinical stage from 11/01/2022:Stage IIIB(cT2, cN1(f), cM0, G2, ER-, CT-, HER2-) - Signed by Sena Blum MD on 11/15/2022 Pathologic stage from 07/22/2023: ypT0, pN0(sn), cM0, G3, ER-, CT-, HER2- - Signed by Sena Blum MD on 08/04/2023 Diabetic polyneuropathy asso ciated with diabetes mellitus due to underlying condition 11/15/2022 Malignant neoplasm of upper- outer quadrant of left breast in female, estrogen receptor negative 11/13/2022 Wound of right ankle 06/21/2022 History of tobacco use disorder 06/21/2022 History of osteomyelitis of ankle 06/21/2022 Osteomyelitis of right ankle 02/19/2022 Chronic bronchitis 02/16/2022 Chronic atrial fibrillation 02/16/2022 Major depressive disorder in remission 2 Hypokalemia 02/16/2022 Vitamin D deficiency 02/16/2022 Wound dehiscence 12/07/2021 Sepsis without acute organ d ysfunction, due to unspecified organism 12/07/2021 Narcotic-induced mood disorder 06/11/2021 Aggressive behavior 06/09/2021 Atrial fibrillation 06/09/2021 Osteomyelitis of ankle, right, acute 05/14/2021 Pulmonary emphysema 04/01/2021 Dyslipidemia 04/01/2021 Depression 04/01/2021 Primary hypertension 04/01/2021 Closed fracture of right ankle 03/25/2021 Type 2 diabetes mellitus, wi th long-term current use of insulin 10/25/2019 Raynaud's disease without gangrene 10/25/2019 MSSA (methicillin susceptibl e Staphylococcus aureus) infection 10/25/2019 COVID-19 09/07/2019 Postoperative wound infection 08/21/2019 Overview (09/04/2019): Chronic non-healing wound of right hand since surgery 11/10/17. Most recent cxs grew MSSA. Assessment & Plan (09/04/2019 11:38 AM CDT): Otilia Cardenas is a 69 yo woman with IDDM and Raynaud's syndrome, referred by Dr. Ortez for infected non-healing wound of the right hand. She has a complicated hx regarding poor healing and infections of surgical sites in the past few years, but denies any other infections: Right index finger amputated 2012 for gangrene, following removal of ganglion cyst. Found to have Raynauds at that time. DM not well-controlled at that time. Developed MRSA infection over palmar aspect of right hand in 2013, received IV antibiotics for 4 weeks, healed well. Developed infection of left distal finger due to pincher nails in 2014, following removal of the fingernail. Underwent amputation of left 5th digit, path reportedly showed osteomyelitis. Healed well. In 12/2016, had 2 lipomas removed from E, developed infection of the one over the antecubital fossa. Eventually referred to Dr. Ortez at [facility], underwent multiple I&Ds and Matristem placement. Finally closed in 2018. 11/10/17 had release of trigger finger of 4th digit right hand. Developed non- healing wound with infection at base of the finger. Multiple I&Ds performed, with wound excisions and Matristem placement, most recently 05/23/19. Has been on a variety of PO antibiotics, most recently TMP/SMX and doxycycline for 4 weeks, with little improvement. Denies f/c or malaise; hand is very painful. Trigger finger now functional, but unable to use the adjacent 3rd finger, which is now swollen. Says she still has intermittent slightly bloody drainage from the wound, not better or worse since off antibiotics. Had the CT of the hand this AM. No recent fever, chills, or malaise. To see Dr. Ortez later this week. CT of hand reviewed by me personally, and discussed with the radiologist. Possible abscess in soft tissue at base of middle finger, no bony erosion. Discussed with Dr. Ortez, who will review the scan. Further intervention pending Dr. Ortez's review ( abscess may be related to Matristem). Discussed with the patient. Assessment & Plan (08/21/2019 10:42 AM CDT): Trigger finger, right ring finger 10/31/2017 Resolved Problems Problem Noted Date Diagnosed Date Resolved Date Viral upper respiratory tract infection 04/09/2024 04/23/2024 Functional diarrhea 12/19/2023 01/16/20 24 Diarrhea 10/25/2023 11/22/2023 Acute encephalopathy 02/22/2023 023 Acute hypoxic respiratory failure 02/22/2023 03/12/2023 Acute cystitis 02/22/2023 03/12/2023 Septic shock 02/21/2023 03/12/2023 Oral thrush 01/25/2023 02/22/2023 SOB (shortness of breath) 06/09/2021 Atrial fibrillation with RVR 03/25/2021 06/10/2021 Fall from standing 03/25/2021 Encounter for long-term (current) drug use 10/25/2019 06/10/2021 Hand, open wound except fing ers, complicated, right, subsequent encounter 09/07/2019 06/10/2021 Open wound of right hand without foreign body 12/03/1906/10/2021 Open wound of left upper arm with complication 06/24/2017 06/10/2021 Open wound of left upper arm 04/09/2017 06/10/2021 Open wound of right hand wit hout foreign body, subsequent encounter 06/10/2021 Encounters Date Type Department Care Team Description 04/17/2024 9:20 AM INTERNATIONAL STUDENT COUNSELOR Office Visit [facility] - Hematology/Oncolog y [address] [place] [phone] Karli Carpenter APRN-MARIBETH Acute cough (Primary Dx); Viral upper respiratory tract infection; Raynaud's disease without gangrene; Malignant neoplasm of upper-outer quadrant of left breast in female, estrogen receptor negative (HCC); Encounter for immunotherapy 04/17/2024 8:20 AM INTERNATIONAL STUDENT COUNSELOR - 04/17/2024 11:59 PM INTERNATIONAL STUDENT COUNSELOR Hospital Encounter [facility] [address] [place] [address] Ernesto Alfaro MD Discharge Disposition: Home or Self Care 04/17/2024 Travel 04/10/2024 8:45 AM INTERNATIONAL STUDENT COUNSELOR Office Visit [facility] - Orthopedics [address] [place] [address] Patrick Burgos, Fauzia Abad PA-C Other closed fracture of distal end of right femur, sequela (Primary Dx) 04/10/2024 Travel 04/09/2024 9:00 AM INTERNATIONAL STUDENT COUNSELOR Office Visit [facility] - Hematology/Oncolog y [address] [place] [phone] Karli Carpenter APRN-[employer] Malignant neoplasm of upper-outer quadrant of left breast in female, estrogen receptor negative (HCC) (Primary Dx); Encounter for immunotherapy; Viral upper respiratory tract infection; High risk for chemotherapy-induced infectious complication; Nausea and vomiting, unspecified vomiting type; Diarrhea, unspecified type; Diabetic polyneuropathy associated with diabetes mellitus due to underlying condition (HCC) 04/09/2024 8:12 AM INTERNATIONAL STUDENT COUNSELOR - 04/09/2024 11:59 PM INTERNATIONAL STUDENT COUNSELOR Hospital Encounter [facility] [address] [place] [phone] Ernesto Alfaro MD Discharge Disposition: Home or Self Care 04/09/2024 Travel 04/05/2024 10:01 AM INTERNATIONAL STUDENT COUNSELOR - 04/05/2024 11:59 PM INTERNATIONAL STUDENT COUNSELOR Hospital Encounter [facility] [address] [place] [phone] Kelsey Renner MD Discharge Disposition: Home or Self Care 03/30/2024 Telephone [facility] [address] [place] [phone] Candace Wilkes RN Appointment 03/27/2024 Travel 03/19/2024 9:20 AM INTERNATIONAL STUDENT COUNSELOR Office Visit [facility] - Hematology/Oncolog y [address] [place] [phone] Redd Middleton MD Malignant neoplasm of upper-outer quadrant of left breast in female, estrogen receptor negative (HCC) (Primary Dx); Wound of right ankle, subsequent encounter; Open knee wound, right, sequela; Thrombocytopenia, secondary; Chemotherapy-induced neutropenia (HCC); Drug-induced nonautoimmune hemolytic anemia (HCC); High risk for chemotherapy-induced infectious complication; Hypokalemia; Hyperglycemia; Diabetic polyneuropathy associated with diabetes mellitus due to underlying condition (HCC); Diarrhea, unspecified type; Nausea and vomiting, unspecified vomiting type; Hard of hearing 03/19/2024 8:30 AM INTERNATIONAL STUDENT COUNSELOR - 03/19/2024 11:59 PM INTERNATIONAL STUDENT COUNSELOR Hospital Encounter [facility] [address] [place] [phone] Ernesto Alfaro MD Discharge Disposition: Home or Self Care 03/19/2024 Travel 03/18/2024 Orders Only [facility] [address] [place] [phone] Redd Middleton MD Malignant neoplasm of upper-outer quadrant of left breast in female, estrogen receptor negative (HCC) 02/27/2024 9:20 AM INTERNATIONAL STUDENT COUNSELOR Office Visit [facility] - Hematology/Oncolog y [address] [place] [phone] Redd Middleton MD Malignant neoplasm of upper-outer quadrant of left breast in female, estrogen receptor negative (HCC) (Primary Dx); Wound of right ankle, subsequent encounter; Open knee wound, right, sequela; Major depressive disorder in remission, unspecified whether recurrent (HCC); Thrombocytopenia, secondary; Chemotherapy-induced neutropenia (HCC); Elevated erythrocyte sedimentation rate; Wound dehiscence; High risk for chemotherapy-induced infectious complication; CRP elevated; Nausea and vomiting, unspecified vomiting type; Diarrhea, unspecified type; Drug-induced nonautoimmune hemolytic anemia (HCC) 02/27/2024 8:40 AM INTERNATIONAL STUDENT COUNSELOR - 02/27/2024 11:59 PM INTERNATIONAL STUDENT COUNSELOR Hospital Encounter [facility] [address] [place] [phone] Redd Middleton MD Discharge Disposition: Home or Self Care 02/27/2024 Travel 02/21/2024 11:00 AM INTERNATIONAL STUDENT COUNSELOR Office Visit [facility] - Orthopedics [address] [place] [phone] Patrick Burgos, DO Postoperative wound infection (Primary Dx); Painful orthopaedic hardware (HCC) 02/21/2024 Travel 02/07/2024 10:20 AM INTERNATIONAL STUDENT COUNSELOR [facility] Visit [facility] - Hematology/Oncolog y [address] [place] [phone] Kelsey Renner MD Willis, Maurice, MD Type 2 diabetes mellitus with hyperglycemia, unspecified whether intermission coordinator insulin use (HCC) (Primary Dx); Simple chronic bronchitis (HCC); Nausea and vomiting, unspecified vomiting type; Diarrhea, unspecified type; Malignant neoplasm of upper-outer quadrant of left breast in female, estrogen receptor negative (HCC); Wound of right ankle, subsequent encounter; Closed fracture of right ankle, sequela; Cellulitis of right lower extremity; Current mild episode of major depressive disorder without prior episode (HCC); Thrombocytopenia, secondary; Elevated erythrocyte sedimentation rate; Chemotherapy-induced neutropenia (HCC); Other specified nutritional anemias; High risk for chemotherapy-induced infectious complication 02/07/2024 9:01 AM INTERNATIONAL STUDENT COUNSELOR - 02/07/2024 11:59 PM INTERNATIONAL STUDENT COUNSELOR Hospital Encounter [facility] [address] [place] [address] Unknown, Provider Redd Middleton MD Discharge Disposition: Home or Self Care 02/07/2024 7:30 AM INTERNATIONAL STUDENT COUNSELOR - 02/07/2024 9:00 AM INTERNATIONAL STUDENT COUNSELOR Hospital Encounter [facility] [address] [place] [address] Kelsey Renner MD Discharge Disposition: Home or Self Care 02/07/2024 Travel 02/03/2024 Telephone [facility] - Pulmonology [address] [facility] [address] [place] [phone] Ryan Narvaez MD Establish Care 01/31/2024 11:00 AM INTERNATIONAL STUDENT COUNSELOR Office Visit [facility] - Orthopedics [address] [place] [address], [place] [address] Patrick Burgos, Postoperative wound infection (Primary Dx) 01/31/2024 Orders Only [facility] - Hematology/Oncolog y [address] [place] [phone] Redd Middleton MD 01/31/2024 Travel 01/30/2024 Orders Only [facility] - Hematology/Oncolog y [address] [place] [address] Redd Middleton MD from Last 3 Months Immunizations Name Administration Dates Next Due INFLUENZA VACCINE, TRIV. (AF LURIA, FLUZONE TRIVALENT; 6MO+) (IIV3) 11/28/2020,12/28/2013 INFLUENZA VACCINE 12/02/2021,12/25/2015,02/01/20 15 INFLUENZA VACCINE, ADJUVANTE D, QUADR. (FLUAD QUADRIVALENT; 65Y+) (AIIV4) 12/27/2022 INFLUENZA VACCINE, ADJUVANTE D, TRIV. (FLUAD TRIVALENT; 65Y+) (AIIV3) 11/14/2018 INFLUENZA VACCINE, HIGH-DOSE , QUADR. (FLUZONE HIGH-DOSE QUADRIVALENT; 65Y+), 0.7 ML (HD-IIV4) 11/28/2020,12/17/2019,01/17/2018,2016 INFLUENZA VACCINE, HIGH-DOSE , TRIV. (FLUZONE HIGH-DOSE TRIVALENT; 65Y+) (HD-IIV3) 01/17/2018,12/24/2016 INFLUENZA VACCINE, QUADR. (A FLURIA, FLUZONE QUADRIVALENT; 6MO+) (IIV4) 01/31/2015 INFLUENZA VACCINE, TRIV. (FL UZONE; FLULAVAL; FLUARIX; AFLURIA TRIVALENT; 6MO+), 0.5 ML (IIV3) 12/25/2015 PNEUMOCOCCAL PPSV23 08/10/2018 Pneumococcal Pcv13 Conj 12/27/2016 TDAP (7yrs+) 01/04/2023(Deferred: Patient braxton garcia) Family History Medical History Relation Name Comments Cancer - Other Father Status: Decea sed Hypertension Father Brain Tumor Mother Cancer - Breast Mother Status: Dece ased Diabetes - Type 2 Mother Cancer - Breast Sister Cancer - Pancreatic Sister Relation Name Status Comments Father Mother Sister Social History Tobacco Use Types Packs/Day Years Used Date Smoking Tobacco: Some Days Cigarettes 0.3 45 Smokeless Tobacco: Never Tobacco Cessation:Ready to Q uit: Not Asked; Counseling Given: Not Answered Alcohol Use Standard Drinks/Week Comments No 0 (1 standard drink = 0.6 oz pur e alcohol) AUDIT-C Answer Date Recorded Q1: How often do you have a drink containing alcohol? Never 11/10/2023 Q2: How many drinks containi ng alcohol do you have on a typical day when you are drinking? Patient does not drink Q3: How often do you have si x or more drinks on one occasion? Never 11/10/2023 Overall Financial Resource Strain (CARDIA) Answe r Date Recorded How hard is it for you to pa y for the very basics like food, housing, medical care, and heating? Not hard at all 11/10/2023 PHQ-2 Answer Date Recorded Patient Health Questionnaire-2 Score 0 08/12/2023 [facility] Occupat ional [facility] - Occupational Stress Questionnaire Answer Date Recorded Do you feel stress - tense, restless, nervous, or anxious, or unable to sleep at night because your mind is troubled all the time - these days? Not at all 11/10/2023 Hunger Vital Sign Answer Date Recorded Within the past 12 months, y ou worried that your food would run out before you got the money to buy more. Never true 11/10/19 24 Within the past 12 months, t he food you bought just didn't last and you didn't have money to get more. Never true 11/10/2023 PRAPARE - Transportation Answer Date Re corded In the past 12 months, has l ack of transportation kept you from medical appointments or from getting medications? No 10/20 In the past 12 months, has l ack of transportation kept you from meetings, work, or from getting things needed for daily living? No 11/10/2023 Housing Stability Vital Sign Answer [place] Recorded In the last 12 months, was t here a time when you were not able to pay the mortgage or rent on time? No 11/10/2023 In the last 12 months, how many places have you lived? 1 11/10/2023 In the last 12 months, was t here a time when you did not have a steady place to sleep or slept in a correction (including now)? No 11/10/2023 Sex and Gender Information Value Date Recorded Sex Assigned at Not on file Gender Identity Female 09/24/2023 8:56 AM CDT Sexual Orientation Not on file Last Filed Vital Signs Vital Sign Reading Time Taken Comments Blood Pressure 113/55 04/17/2024 8:51 AM INTERNATIONAL STUDENT COUNSELOR Pulse 79 04/17/2024 8:51 AM INTERNATIONAL STUDENT COUNSELOR Temperature 37.1 C (98.8 F) 04/17/2024 8:51 AM INTERNATIONAL STUDENT COUNSELOR Respiratory Rate 18 04/17/2024 8:51 AM INTERNATIONAL STUDENT COUNSELOR Oxygen Saturation 93% 04/17/2024 8:51 AM INTERNATIONAL STUDENT COUNSELOR Inhaled Oxygen Concentration 50% 02/25/2023 1 0:00 AM INTERNATIONAL STUDENT COUNSELOR Weight 71.7 kg (158 lb) 04/17/2024 8:51 AM INTERNATIONAL STUDENT COUNSELOR Height 157.5 cm (5' 2.01 ) 02/27/2024 9:13 AM CS T Body Mass Index 28.89 02/27/2024 9:13 AM INTERNATIONAL STUDENT COUNSELOR Plan of Treatment Upcoming Encounters Date Type Department Care Team (Late st Contact Info) Description 05/07/2024 9:20 AM INTERNATIONAL STUDENT COUNSELOR Office Visit [facility] - Hematology/Oncology [address] [place] [phone] Redd Middleton MD [facility] [place] [address] 05/08/2024 8:40 AM INTERNATIONAL STUDENT COUNSELOR Hospital Encounter [facility] [address] [place] [phone] Ernesto Alfaro MD [address] [place] [phone] 05/08/2024 8:45 AM INTERNATIONAL STUDENT COUNSELOR Office Visit [facility] - Orthopedics [address] [place] [address], [facility] [place] [phone] Patrick Burgos, [address] [place] [address] [place] [address] 05/29/2024 9:00 AM CDT Appointment [facility] [address] [place] [phone] Ernesto Alfaro MD [address] [place] [phone] 08/02/2024 9:30 AM CDT Office Visit [facility] - General Surgery [address] [place] [phone] Sena Blum MD [address] [facility] [address] [place] [phone] 12/05/2024 10:00 AM CDT Appointment [facility] [address] [place] [address] Kelsey Renner MD [address] [place] [phone] 02/11/2025 8:00 AM INTERNATIONAL STUDENT COUNSELOR Appointment [facility] [address] [place] [address] Health Maintenance Due Date Last Done Comments BONE DENSITY TESTING 1950 COLOGUARD (AGES 45-75) - COLON CA SCREENING 1950 COLON MONITORING 1951 COLONOSCOPY - COLON CA SCREENING 1951 CT COLONOGRAPHY - COLON CA SCREENING 1950 Colorectal Cancer Screening 1950 FIT - COLON CA SCREENING 1951 FLEX SIG - COLON CA SCREENING 1951 Opioid Medication Agreement - Annual 1950 COVID-19 VACCINE (#1) 1956 DTAP/TDAP/TD VACCINES (1 - Tdap) 1970 ZOSTER VACCINE (1 of 2) 1970 Respiratory Syncytial Virus (RSV) Vaccine Pt: or over 60 yrs (1 - Risk 60-74 years 1-dose series) 2011 DIABETES RETINOPATHY SCREENING 10/25/2019 DIABETES-FOOT EXAM WITH MONOFILAMENT 10/25/2019 INFLUENZA VACCINE (#1) 2023 , 12/02/2021, 11/28/2020, Additional history exists DEPRESSION SCREENING 03/21/2024 08/12/2023, 01/25/2023, 01/25/2023, Additional history exists DIABETES - URINE PROTEIN SCREENING 03/21/2024 MEDICARE AW CALENDAR YEAR 2024 DIABETES-HGB A1C 05/11/2024 11/09/2023, , 01/05/2023, Additional history exists DIABETES-SERUM CREATININE 04/17/20252024, 04/09/2024, 03/19/2024, Additional history exists MAMMOGRAM 02/06/2026 02/07/2024, 06/20, 11/01/2022, Additional history exists PNEUMOCOCCAL VACCINE 50+ Completed 08/10/2018, 1011/2016 HEPATITIS C SCREENING Completed 11/10/2023 HEPATITIS B VACCINE Aged Out No longe r eligible based on patient's age to complete this topic HIB VACCINE Aged Out No longer eligi ble based on patient's age to complete this topic HPV VACCINE Aged Out No longer eligi ble based on patient's age to complete this topic MENINGOCOCCAL (Group B) VACCINE Aged Out No longer eligible based on patient's age to complete this topic MENINGOCOCCAL VACCINE Aged Out No rosetta shiva eligible based on patient's age to complete this topic Goals Goal Patient Goal Type Associated Problems Recent Progress Patient-Stated? Author Skin Integrity General No Mer Carson RN Note: Expected end date: 4 weeks Skin integrity is maintained or improved. Interventions: Inspect under all devices; continue local wound care. Medical Devices Implanted Type Area Process Control Board Operator Device Identifier Shelf Expiration Date Model / Serial / Lot Graft Tissue Matristem Micromatrix Prcn - [id number] Implanted:Qty: 1 on 08/31/2017 by Juan Ortez MD at [facility] Left: Arm [employer] 06/19/2019 [id number] / [id number] / [id number] Description:Left AC wound Graft Tissue Cytal [id number] Mesh Brn - [id number] Implanted:Qty: 1 on 08/31/2017 by Juan Ortez MD at [facility] Left: Arm [employer] 06/19/2019 [id number] / [id number] / [id number] Description:Left Ac Graft Tissue Matristem Micromatrix Prcn - [id number] Implanted:Qty: 1 on 12/22/2017 by Juan Ortez MD at [facility] Right: Hand [employer] 03/20/2019 [id number] / [id number] / [id number] Mtrx Tissue 5x5cm Cytal Mesh Brn - [id number] Implanted:Qty: 1 on 12/22/2017 by Juan Ortez MD at [facility] Right: Hand [employer] 10/19/2019 [id number] / [id number] / [id number] Mtrx Tissue 5x5cm Cytal Mesh Brn - [id number] Implanted:Qty: 1 on 05/25/2018 by Juan Ortez MD at [facility] Right: Hand [employer] 12/19/2019 [id number] / [id number] / [id number] Mtrx Tissue 5x5cm Cytal Mesh Brn Implanted:Qty: 1 on 08/02/2018 by Juan Ortez MD at [facility] Right: Hand [employer] 06/18/2020 [id number] / / Mtrx Tissue Micromatrix Prcn Bldr - [id number] Implanted:Qty: 1 on 01/03/2019 by Juan Ortez MD at [facility] Right: Hand [employer] 09/17/2020 [id number] / [id number] / [id number] Mtrx Tissue 5x5cm Cytal Prcn Bldr Brn - [id number] Implanted:Qty: 1 on 01/03/2019 by Juan Ortez MD at [facility] Right: Hand [employer] 06/18/2020 [id number] / [id number] / [id number] Mtrx Tissue 5x5cm Gentrix Prcn Urn Bldr - [id number] Implanted:Qty: 1 on 05/23/2019 by Juan Ortez MD at [facility] Right: Hand [employer] 01/18/2021 [id number] / [id number] / [id number] Mtrx Tissue 5x5cm Cytal Prcn Bldr Brn - [id number] Implanted:Qty: 1 on 05/23/2019 by Juan Ortez MD at [facility] Right: Hand [employer] 11/18/2020 [id number] / [id number] / [id number] Mtrx Tissue Micromatrix Prcn Bldr - [id number] Implanted:Qty: 1 on 05/23/2019 by Juan Ortez MD at [facility] Right: Hand [employer] 01/18/2021 [id number] / [id number] / [id number] Mtrx Tissue Micromatrix Prcn Bldr - [id number] Implanted:Qty: 1 on 09/12/2019 by Juan Ortez MD at [facility] Right: Hand [employer] 11/18/2020 [id number] / [id number] / [id number] Mtrx Tissue 5x5cm Cytal Prcn Bldr Brn - [id number] Implanted:Qty: 1 on 09/12/2019 by Juan Ortez MD at [facility] Right: Hand [employer] 04/20/2021 [id number] / [id number] / [id number] Graft Bone Canc 4-9.5mm 15cc Frzdr [facility] - [id number] Implanted:Qty: 1 on 04/07/2021 by Cristo Lewis MD at [facility] Right: Ankle [employer] 11/16/2024 [id number] / [id number] / Hydromark Breast Biopsy Site Marker Implanted:Qty: 1 on 11/01/2022 by Norma Carrasquillo MD at [facility] Left: Axilla Devicor [id number] 12/03/2024 2721-16-10-T1 / / [id number] Ultracor Twirl Breast Tissue Marker Implanted:Qty: 1 on 11/01/2022 by Norma Carrasquillo MD at [facility] Left: Breast [employer] [id number] 07/16/2025 [id number] / / Port Implinfn Powerport Clrvu Argd Shanae Implanted:Qty: 1 on 11/24/2022 at [facility] Right: Chest [employer] 12/19/2023 [id number] / / [id number] Description:RIJ inserted by Dr. Pool Zamorano Orth Ss 3.5-4 Mm Penny Screw Nonster Implanted:Qty: 1 on 01/05/2023 by Patrick Burgos DO at [facility] Right: Knee [employer] [id number] / / Screw 4mm 5mm 80mm .5 Thrd Rvrs Cut Flut Implanted:Qty: 1 on 01/05/2023 by Patrick Burgos DO at [facility] Right: Knee [employer] [id number] / / Screw 3.5mm 5mm 75mm Ft Rvrs Cut Flut Implanted:Qty: 1 on 01/05/2023 by Patrick Burgos DO at [facility] Right: Knee [employer] [id number] / / Nail Im 13mm 34cm Ntr Nail Fem Rtrgd Ant Implanted:Qty: 1 on 01/05/2023 by Patrick Burgos DO at [facility] Right: Knee [employer] [id number] / / Pin Fx 355cm 3mm Fem Nonthread Rtrgd Ntr Implanted:Qty: 1 on 01/05/2023 by Patrick Burgos DO at [facility] Right: Knee [employer] [id number] / / Screw 6mm 3.5mm 85mm Ft Slf-Tap Fx Ang Implanted:Qty: 1 on 01/05/2023 by Patrick Burgos DO at [facility] Right: Knee [employer] [id number] / / Screw 6mm 3.5mm 85mm Ft Slf-Tap Fx Ang Implanted:Qty: 1 on 01/05/2023 by Patrick Burgos DO at [facility] Right: Knee [employer] [id number] / / Screw 6mm 3.5mm 75mm Ft Slf-Tap Fx Ang Implanted:Qty: 1 on 01/05/2023 by Patrick Burgos DO at [facility] Right: Knee [employer] [id number] / / Screw 5mm 3.5mm 40mm Ft Slf-Tap Fx Ang Implanted:Qty: 2 on 01/05/2023 by Patrick Burgos DO at [facility] Right: Knee [employer] [id number] / / Screw 4.5mm 34mm Ft Stef Nonster Bone Implanted:Qty: 2 on 01/05/2023 by Patrick Burgos DO at [facility] Right: Knee [employer] [id number] / / Explanted Type Area Process Control Board Operator Device Identifier Shelf Expiration Date Model / Serial / Lot 2.7 Locking Explanted:Qty: 1 on 04/07/2021 by Cristo Lewis MD at [facility] Right: Ankle [employer] [id number] / / Screw 3.5mm 12mm Slf-Tap Cortx Evos Strl Explanted:Qty: 1 on 04/07/2021 by Cristo Lewis MD at [facility] Right: Ankle [employer] [id number] / / 3.5 Cortical Explanted:Qty: 1 on 04/07/2021 by Cristo Lewis MD at [facility] Right: Ankle [employer] [id number] / / Screw 3.5mm 14mm Slf-Tap Lck Evos Strl Explanted:Qty: 1 on 04/07/2021 by Cristo Lewis MD at [facility] Right: Ankle [employer] [id number] / / 6 Hole Clamp Implanted:Qty: 1 on 03/25/2021 by Cristo Lewis MD at [facility] Explanted:Qty: 1 on 12/09/2021 by Cristo Lewis MD at [facility] Right: Ankle [employer] [id number] / / Clamp Extfix Jtx 10.5-4mm Mini Mr Sf Bar Implanted:Qty: 1 on 03/25/2021 by Cristo Lewis MD at [facility] Explanted:Qty: 1 on 12/09/2021 by Cristo Lewis MD at [facility] Right: Ankle [employer] [id number] / / 5x35 Pin Implanted:Qty: 2 on 03/25/2021 by Cristo Lewis MD at [facility] Explanted:Qty: 2 on 12/09/2021 by Cristo Lewis MD at [facility] Right: Ankle [id number] / / Pin Trc 50mm 5mm Jtx Lng Ti Ntrd Strl Implanted:Qty: 1 on 03/25/2021 by Cristo Lewis MD at [facility] Explanted:Qty: 1 on 12/09/2021 by Cristo Lewis MD at [facility] Right: Ankle [employer] [id number] / / 4x35 Pin Implanted:Qty: 1 on 03/25/2021 by Cristo Lewis MD at [facility] Explanted:Qty: 1 on 12/09/2021 by Cristo Lewis MD at [facility] Right: Ankle [id number] / / Bar Pin Implanted:Qty: 3 on 03/25/2021 by Cristo Lewis MD at [facility] Explanted:Qty: 3 on 12/09/2021 by Cristo Lewis MD at [facility] Right: Ankle [employer] [id number] / / Post Extfix Jtx 30d Nonster Implanted:Qty: 2 on 03/25/2021 by Cristo Lewis MD at [facility] Explanted:Qty: 2 on 12/09/2021 by Cristo Lewis MD at [facility] Right: Ankle [employer] Tra[employer] [id number] / / 300 Bar Implanted:Qty: 2 on 03/25/2021 by Cristo Lewis MD at [facility] Explanted:Qty: 2 on 12/09/2021 by Cristo Lewis MD at [facility] Right: Ankle [employer] [id number] / / Clamp Extfix Jtx 10.5mm Bar To Bar Mr Sf Implanted:Qty: 2 on 03/25/2021 by Cristo Lewis MD at [facility] Explanted:Qty: 2 on 12/09/2021 by Cristo Lewis MD at [facility] Right: Ankle [employer] Tra[employer] [id number] / / T Plate 27 Implanted:Qty: 1 on 04/07/2021 by Cristo Lewis MD at [facility] Explanted:Qty: 1 on 12/09/2021 by Cristo Lewis MD at [facility] Right: Ankle [employer] [id number] / / 2.7 Cortical Implanted:Qty: 1 on 04/07/2021 by Cristo Lewis MD at [facility] Explanted:Qty: 1 on 12/09/2021 by Cristo Lewis MD at [facility] Right: Ankle [employer] [id number] / / 2.7 Cortical Implanted:Qty: 1 on 04/07/2021 by Cristo Lewis MD at [facility] Explanted:Qty: 1 on 12/09/2021 by Cristo Lewis MD at [facility] Right: Ankle [employer] [id number] / / Screw 2.7mm 4.5mm 32mm T8 2mm Slf-Tap Implanted:Qty: 1 on 04/07/2021 by Cristo Lewis MD at [facility] Explanted:Qty: 1 on 12/09/2021 by Cristo Lewis MD at [facility] Right: Ankle [employer] [id number] / / 2.7 Locking Implanted:Qty: 2 on 04/07/2021 by Cristo Lewis MD at [facility] Explanted:Qty: 2 on 12/09/2021 by Cristo Lewis MD at [facility] Right: Ankle [employer] [id number] / / 2.7 Locking Implanted:Qty: 1 on 04/07/2021 by Cristo Lewis MD at [facility] Explanted:Qty: 1 on 12/09/2021 by Cristo Lewis MD at [facility] Right: Ankle [employer] [id number] / / Screw 3.5mm 12mm Slf-Tap Cortx Evos Strl Implanted:Qty: 1 on 04/07/2021 by Cristo Lewis MD at [facility] Explanted:Qty: 1 on 12/09/2021 by Cristo Lewis MD at [facility] Right: Ankle [employer] [id number] / / 3.5 9 Hole Implanted:Qty: 1 on 04/07/2021 by Cristo Lewis MD at [facility] Explanted:Qty: 1 on 12/09/2021 by Cristo Lewis MD at [facility] Right: Ankle [employer] [id number] / / 3.5 Locking Implanted:Qty: 1 on 04/07/2021 by rCisto Lewis MD at [facility] Explanted:Qty: 1 on 12/09/2021 by Cristo Lewis MD at [facility] Right: Ankle [employer] [id number] / / Screw 3.5mm 14mm Slf-Tap Lck Evos Strl Implanted:Qty: 2 on 04/07/2021 by Cristo Lewis MD at [facility] Explanted:Qty: 2 on 12/09/2021 by Cristo Lewis MD at [facility] Right: Ankle [employer] [id number] / / 3.5 Locking Implanted:Qty: 1 on 04/07/2021 by Cristo Lewis MD at [facility] Explanted:Qty: 1 on 12/09/2021 by Cristo Lewis MD at [facility] Right: Ankle [employer] [id number] / / 3.5 Locking Implanted:Qty: 1 on 04/07/2021 by Cristo Lewis MD at [facility] Explanted:Qty: 1 on 12/09/2021 by Cristo Lewis MD at [facility] Right: Ankle [employer] [id number] / / 3.5 Cortical Implanted:Qty: 1 on 04/07/2021 by Cristo Lewis MD at [facility] Explanted:Qty: 1 on 12/09/2021 by Cristo Lewis MD at [facility] Right: Ankle [employer] [id number] / / 3.5 Cortical Implanted:Qty: 1 on 04/07/2021 by Cristo Lewis MD at [facility] Explanted:Qty: 1 on 12/09/2021 by Cristo Lewis MD at [facility] Right: Ankle [employer] [id number] / / 1/3 Tubular Plate Implanted:Qty: 1 on 04/07/2021 by Cristo Lewis MD at [facility] Explanted:Qty: 1 on 12/09/2021 by Cristo Lewis MD at [facility] Right: Ankle [employer] [id number] / / 3.5 Cortical Implanted:Qty: 1 on 04/07/2021 by Cristo Lewis MD at [facility] Explanted:Qty: 1 on 12/09/2021 by Cristo Lewis MD at [facility] Right: Ankle [employer] [id number] / / Screw 4mm 40mm P/T Penny Hip Ss Strl Bone Implanted:Qty: 1 on 04/07/2021 by Cristo Lewis MD at [facility] Explanted:Qty: 1 on 12/09/2021 by Cristo Lewis MD at [facility] Right: Ankle [employer] [id number] / / 3.5 Cortical Implanted:Qty: 1 on 04/07/2021 by Cristo Lewis MD at [facility] Explanted:Qty: 1 on 12/09/2021 by Cristo Lewis MD at [facility] Right: Ankle [employer] [id number] / / 3.5 Locking Implanted:Qty: 2 on 04/07/2021 by Cristo Lewis MD at [facility] Explanted:Qty: 2 on 12/09/2021 by Cristo Lewis MD at [facility] Right: Ankle [employer] [id number] / / 2.7 Cortical Implanted:Qty: 1 on 04/07/2021 by Cristo Lewis MD at [facility] Explanted:Qty: 1 on 12/09/2021 by Cristo Lewis MD at [facility] Right: Ankle [employer] [id number] / / Wire K 1.6mm 150mm 1 End Troc Pnt Ss Sm Explanted:Qty: 1 on 01/05/2023 at [facility] Right: Knee [employer] [id number] / / Screw 4mm 5mm 85mm .5 Thrd Rvrs Cut Flut Explanted:Qty: 1 on 01/05/2023 by Patrick Burgos DO at [facility] Right: Knee [employer] [id number] / / 2.0 K-Wire Explanted:Qty: 1 on 01/05/2023 by Patrick Burgos DO at [facility] Right: Knee [id number] / / Screw 6mm 3.5mm 80mm Ft Slf-Tap Fx Ang Explanted:Qty: 1 on 01/05/2023 by Patrick Burgos DO at [facility] Right: Knee [employer] [id number] / / Wshr Orth Ss 3.5-4 Mm Penny Screw Nonster Explanted:Qty: 1 on 01/05/2023 by Patrick Burgos DO at [facility] Right: Knee [employer] [id number] / / Screw 5mm 3.5mm 45mm Ft Fx Ang Hex Head Explanted:Qty: 1 on 01/05/2023 by Patrick Burgos DO at [facility] Right: Knee [employer] [id number] / / Procedures Procedure Name Priority Date/Time Associated Diagnosis Comments PLATELET COUNT AUTO CITRATED BLOOD STAT 04/17/2024 11:10 AM INTERNATIONAL STUDENT COUNSELOR [facility] [place] 04/17/2024 8:43 AM INTERNATIONAL STUDENT COUNSELOR Malignant neoplasm of upper-outer quadrant of left breast in female, estrogen receptor negative (HCC) COMPREHENSIVE METABOLIC PANEL STAT 04/17/2024 8:43 AM INTERNATIONAL STUDENT COUNSELOR Malignant neoplasm of upper-outer quadrant of left breast in female, estrogen receptor negative (HCC) CBC W AUTO DIFFERENTIAL STAT 04/17/2024 8:43 AM INTERNATIONAL STUDENT COUNSELOR Malignant neoplasm of upper-outer quadrant of left breast in female, estrogen receptor negative (HCC) TSH [place] 04/09/2024 8:42 AM INTERNATIONAL STUDENT COUNSELOR Malignant neoplasm of upper-outer quadrant of left breast in female, estrogen receptor negative (HCC) COMPREHENSIVE METABOLIC PANEL STAT 04/09/2024 8:42 AM INTERNATIONAL STUDENT COUNSELOR Malignant neoplasm of upper-outer quadrant of left breast in female, estrogen receptor negative (HCC) CBC W AUTO DIFFERENTIAL STAT 04/09/2024 8:42 AM INTERNATIONAL STUDENT COUNSELOR Malignant neoplasm of upper-outer quadrant of left breast in female, estrogen receptor negative (HCC) TSH [place] 03/19/2024 9:13 AM INTERNATIONAL STUDENT COUNSELOR Malignant neoplasm of upper-outer quadrant of left breast in female, estrogen receptor negative (HCC) COMPREHENSIVE METABOLIC PANEL STAT 03/19/2024 9:13 AM INTERNATIONAL STUDENT COUNSELOR Malignant neoplasm of upper-outer quadrant of left breast in female, estrogen receptor negative (HCC) CBC W AUTO DIFFERENTIAL STAT 03/19/2024 9:13 AM INTERNATIONAL STUDENT COUNSELOR Malignant neoplasm of upper-outer quadrant of left breast in female, estrogen receptor negative (HCC) TSH [place] 02/27/2024 9:04 AM INTERNATIONAL STUDENT COUNSELOR Malignant neoplasm of upper-outer quadrant of left breast in female, estrogen receptor negative (HCC) COMPREHENSIVE METABOLIC PANEL STAT 02/27/2024 9:04 AM INTERNATIONAL STUDENT COUNSELOR Malignant neoplasm of upper-outer quadrant of left breast in female, estrogen receptor negative (HCC) CBC W AUTO DIFFERENTIAL STAT 02/27/2024 9:04 AM INTERNATIONAL STUDENT COUNSELOR Malignant neoplasm of upper-outer quadrant of left breast in female, estrogen receptor negative (HCC) TSH [place] 02/07/2024 9:50 AM INTERNATIONAL STUDENT COUNSELOR Malignant neoplasm of upper-outer quadrant of left breast in female, estrogen receptor negative (HCC) COMPREHENSIVE METABOLIC PANEL STAT 02/07/2024 9:50 AM INTERNATIONAL STUDENT COUNSELOR Malignant neoplasm of upper-outer quadrant of left breast in female, estrogen receptor negative (HCC) CBC W AUTO DIFFERENTIAL STAT 02/07/2024 9:50 AM INTERNATIONAL STUDENT COUNSELOR Malignant neoplasm of upper-outer quadrant of left breast in female, estrogen receptor negative (HCC) MAMMO BILAT DIAGNOSTIC W CHARLES Routine 02/07/2024 9:00 AM INTERNATIONAL STUDENT COUNSELOR Malignant neoplasm of upper-outer quadrant of left breast in female, estrogen receptor negative (HCC) HEPATITIS C AB SCREEN RFLX NAAT QUANT Routine 11/10/2023 11:36 AM CDT HEMOGLOBIN A1C Routine 11/09/2023 9:55 AM CDT Acute pain of right knee from Last 3 Months or Most Recently Relevant to Health Maintenance Results * PLATELET COUNT AUTO CITRATED BLOOD (04/17/2024 11:10 AM INTERNATIONAL STUDENT COUNSELOR) Platelet Count Citrated 04/17/2024 12:44 PM [facility] Comment:Unable to report Blood BLOOD SPECIMEN / Unknown Venipuncture / Unknown 04/17/2024 11:10 AM INTERNATIONAL STUDENT COUNSELOR 04/17/2024 11:18 AM INTERNATIONAL STUDENT COUNSELOR Redd Middleton MD LAB - HEMATOLOGY ORD ERABLES [facility] [address] [place] [address], [facility] [phone] * (ABNORMAL) CBC W/ DIFFERENTIAL (04/17/2024 8:43 AM INTERNATIONAL STUDENT COUNSELOR) Only the most recent of5 resultswithin the time period is included. WBC 9.7 4.0 - 10.7 x10E9/L 04/17/2024 10:58 AM [facility] RBC Count 3.69(L) 3.90 - 5.20 x10E12/L 04/17/2024 10:58 AM [facility] Hemoglobin 11.4(L) 11.9 - 15.8 g/dL 04/17/2024 10:58 AM [facility] Hematocrit 35.4 34.8 - 46.1 % 04/17/2024 10:58 AM [facility] MCV 95.9 80.0 - 98.0 fL 04/17/2024 10:58 AM [facility] MCH 30.9 26.7 - 33.6 pg 04/17/2024 10:58 AM [facility] MCHC 32.2 31.7 - 36.3 g/dL 04/17/2024 10:58 AM [facility] RDW-CV 13.9 11.3 - 14.8 % 04/17/2024 10:58 AM [facility] Platelet Count 04/17/2024 10:58 AM [facility] Comment:Platelets clumped on slide but appears adequate. Recommend repeat with a sodium citrate blue top tube. MPV 04/17/2024 10:58 AM [facility] Comment:Unable to report Preliminary Absolute Neutrophil 7.64(H) 1.60 - 7.50 x10E9/L 04/17/2024 10:58 AM [facility] Comment:Preliminary ANC pend ing manual confirmation Neutrophil % 79.2(H) 41.0 - 74.0 % 04/17/2024 10:58 AM [facility] Lymphocyte % 10.9(L) 17.0 - 47.0 % 04/17/2024 10:58 AM [facility] Monocyte % 6.5 3.0 - 11.0 % 04/17/2024 10:58 AM [facility] Eosinophil % 1.8 0.0 - 7.0 % 04/17/2024 10:58 AM [facility] Basophil % 0.4 0.0 - 1.6 % 04/17/2024 10:58 AM [facility] Immature Granulocytes % 1.2(H) 0.0 - 1.0 % 04/17/2024 10:58 AM [facility] Neutrophil Absolute 7.64(H) 1.60 - 7.50 x10E9/L 04/17/2024 10:58 AM [facility] Lymphocyte Absolute 1.05 1.00 - 4.40 x10E9/L 04/17/2024 10:58 AM [facility] Monocyte Absolute 0.63 0.15 - 1.00 x10E9/L 04/17/2024 10:58 AM [facility] Eosinophil Absolute 0.17 0.00 - 0.60 x10E9/L 04/17/2024 10:58 AM [facility] Basophil Absolute 0.04 0.00 - 0.13 x10E9/L 04/17/2024 10:58 AM [facility] Blood BLOOD SPECIMEN / Unknown Venipuncture / Unknown 04/17/2024 8:43 AM [facility] 04/17/2024 9:15 AM [facility] Redd Middleton MD LAB - HEMATOLOGY ORD ERABLES [facility] [address] [place] [address], [facility] [phone] * (ABNORMAL) COMPREHENSIVE METABOLIC PANEL (04/17/2024 8:43 AM INTERNATIONAL STUDENT COUNSELOR) Only the most recent of5 resultswithin the time period is included. BUN 12 7 - 26 mg/dL 04/17/2024 9:37 AM [facility] Creatinine 1.01(H) 0.56 - 0.96 mg/dL 04/17/2024 9:37 AM [facility] Sodium 138 136 - 145 mmol/L 04/17/2024 9:37 AM [facility] Potassium 4.8(H) 3.5 - 4.5 mmol/L 04/17/2024 9:37 AM [facility] Chloride 104 98 - 107 mmol/L 04/17/2024 9:37 AM [facility] CO2 27 22 - 29 mmol/L 04/17/2024 9:37 AM [facility] Glucose 231(H) 70 - 99 mg/dL 04/17/2024 9:37 AM [facility] Calcium 9.3 8.4 - 10.2 mg/dL 04/17/2024 9:37 AM [facility] Protein Total 7.2 6.0 - 8.3 g/dL 04/17/2024 9:37 AM [facility] Albumin 2.8(L) 3.4 - 5.0 g/dL 04/17/2024 9:37 AM [facility] Bilirubin Total 0.2 0.2 - 1.2 mg/dL 04/17/2024 9:37 AM [facility] Alkaline Phosphatase 120 40 - 150 U/L 04/17/2024 9:37 AM [facility] ALT 22 5 - 55 U/L 04/17/2024 9:37 AM [facility] AST 22 5 - 34 U/L 04/17/2024 9:37 AM [facility] Anion Gap 7 6 - 16 04/17/2024 9:37 AM [facility] BUN/Creatinine Ratio 12 7 - 23 04/17/2024 9:37 AM [facility] Osmolality Calculated 293 275 - 295 mOsm/kg 04/17/2024 9:37 AM [facility] Albumin/Globulin Ratio 0.6(L) 1.1 - 2.3 04/17/2024 9:37 AM [facility] eGFR by CKD-EPI 59(L) >=90 mL/min/1.7 3 m2 04/17/2024 9:37 AM [facility] Blood BLOOD SPECIMEN / Unknown Venipuncture / Unknown 04/17/2024 8:43 AM INTERNATIONAL STUDENT COUNSELOR 04/17/2024 9:01 AM INTERNATIONAL STUDENT COUNSELOR Redd Middleton MD LAB - CHEMISTRY DIAMANTE CARCAMO Performing Organization Address City/[facility]/ZIP Co de Phone Number [address] [address] [address], [facility] [phone] * TSH (04/17/2024 8:43 AM INTERNATIONAL STUDENT COUNSELOR) Only the most recent of5 resultswithin the time period is included. TSH 2.067 0.350 - 4.940 uIU/mL 04/17/2024 9:47 AM [facility] Blood BLOOD SPECIMEN / Unknown Venipuncture / Unknown 04/17/2024 8:43 AM INTERNATIONAL STUDENT COUNSELOR 04/17/2024 9:01 AM INTERNATIONAL STUDENT COUNSELOR Redd Middleton MD LAB - CHEMISTRY DIAMANTE CARCAMO [address] [address], [place] [phone] * Mammo Bilat Diagnostic W Charles (02/07/2024 9:00 AM INTERNATIONAL STUDENT COUNSELOR) Anatomical Region Laterality Modality Breast Bilateral Mammography 02/07/2024 8:25 AM INTERNATIONAL STUDENT COUNSELOR Impressions 02/07/2024 10:42 AM INTERNATIONAL STUDENT COUNSELOR IMPRESSION: No mammographic evidence of malignancy in either breast, status post left breast conservation therapy. RECOMMENDATION: Screening mammography in one year, pending no interval breast concerns, due January 2025. Dr. Knapp discussed the examination findings and recommendations with the patient at the time of the examination. Patient will also receive the exam results by lay letter. OVERALL ASSESSMENT: BI-RADS CATEGORY 2: BENIGN. Report dictated by Monica SULLIVAN, FR (breast imaging fellow). IAlondra DO have personally reviewed and interpreted this examination/study. > Interpreting Provider: Alondra Mancia DO on 02/07/2024 10:42 AM Narrative 02/07/2024 10:42 AM INTERNATIONAL STUDENT COUNSELOR EXAMINATIONS: BILATERAL DIGITAL DIAGNOSTIC MAMMOGRAM AND BREAST TOMOSYNTHESIS LOCATION: [facility] EXAM DATE: 02/07/2024 HISTORY: Prior history of left breast cancer, status post left breast conservation therapy. This is a 73-year-old female patient with history of left breast invasive ductal carcinoma, first diagnosed 11/01/2022, with subsequent neoadjuvant chemotherapy. She discontinued chemotherapy secondary to toxicity. Patient had lumpectomy with sentinel lymph node biopsy 07/22/2023. Subsequent whole breast radiation completed on 09/23/2023. This is the patient's first mammogram following breast conservation surgery. COMPARISON: Mammogram 10/29/2022, 07/07/2023. Specimen mammogram 07/22/2023. TECHNIQUE: Diagnostic bilateral mammography was performed.Tomosynthesis (3D) and reconstructed synthetic 2-D images acquired. Bilateral craniocaudal, left exaggerated craniocaudal, bilateral mediolateral oblique, full field true mediolateral, magnified mediolateral views were obtained. A total of 9 images were obtained. Scar markers placed on the bilateral breast and left axilla. Transpara AI was utilized. BREAST COMPOSITION: Category B: There are scattered areas of fibroglandular density. FINDINGS: Right breast: There are no suspicious findings or evidence of malignancy on mammography. Scattered benign coarse calcifications in the right breast are unchanged. No discrete mass or evidence of distortion. No significant change from the prior. Left breast: There are new postoperative changes consistent with left breast conservation surgery and left axillary lymph node dissection. There is no discrete mass, evidence of distortion or suspicious calcifications to suggest residual or recurrent malignancy. Interval development of mild diffuse left breast skin and trabecular thickening is most consistent with postradiation change. Kelsey Renner MD MAMMO ORDERABLES * HEPATITIS C AB SCREEN RFLX NAAT QUANT (11/10/2023 11:36 AM CDT) Hepatitis C Antibody Non-react alia Non-reac tive 11/10/2023 12:29 PM CDT [facility] Comment:Hepatitis C Antibody screen indicates no serologic evidence of past or current infection with Hepatitis C Virus. Patients with unexplained liver disease who are immunocompromised or suspected of having acute Hepatitis C infection may benefit from Nucleic Acid Test (ESTELA) for Hepatitis C Viral RNA to confirm Hepatitis C status. Blood BLOOD SPECIMEN / Unknown Lab Venipuncture / Unknown 11/10/2023 11:36 AM CDT 11/10/2023 11:40 AM CDT Terence Brizuela MD LAB - CHEMISTRY DIAMANTE CARCAMO [facility] Organization Address City/State/ZIP Co de Phone Number [facility] [address] [place] [phone], [facility] [phone] * (ABNORMAL) HEMOGLOBIN A1C (11/09/2023 9:55 AM CDT) Hemoglobin A1c 6.5(H) <=5.6 % 11/09/2023 12:42 PM CDT [facility] Estimated Average Glucose 140 mg/dL 11/09/2023 12:42 PM CDT [facility] Comment: HbA1c Interpretation: Normal : < 5.7% Pre-diabetes: 5.7-6.4% Diabetes: Equal to or greater than 6.5% Test results diagnostic of diabetes should be repeated for confirmation. Treatment target values recommended by ADA and other clinical organizations should be used to evaluate metabolic control in patients. Reference: [place] [employer], Standards of Care in Diabetes -2020 In patients 70 years and older consider HbA1c target range of 7.0-7.5% (Reference: Silvio Elliott et al. JAMDA. 2012) The Sebia assay for the measurement of HbA1c is a National Glycohemoglobin Standardization Program (NGSP) certified method. Blood BLOOD SPECIMEN / Unknown Lab Venipuncture / Unknown 11/09/2023 9:55 AM CDT 11/09/2023 10:07 AM CDT Terence Brizuela MD LAB - CHEMISTRY DIAMANTE [place] Organization Address City/State/ZIP Co de Phone Number [facility] [address] [place] [address], [facility] [phone] from Last 3 Months or Most Recently Relevant to Health Maintenance Additional Health Concerns Infection Onset Date Last Indicated MRSA Hx 06/07/2023 06/07/2023 Advance Directives * Full Code (Latest Code Status on File) Date Activated Date Inactivated Comments 11/08/2023 5:24 PM 11/19/2023 6:29 PM * Full Code Date Activated Date Inactivated Comments 07/22/2023 12:51 PM 07/23/2023 11:33 AM * Full Code Date Activated Date Inactivated Comments 06/05/2023 8:33 AM 06/08/2023 6:15 PM * Full Code Date Activated Date Inactivated Comments 02/22/2023 11:25 AM 03/12/2023 7:36 PM * Full Code Date Activated Date Inactivated Comments 01/04/2023 3:22 PM 01/12/2023 7:07 PM Care Teams Manager Process Excellence Relationship Specialty Start Date End Date Ernesto Alfaro MD [address] [place] [address] PCP - General 01/03/17
--- OUTSIDE RECORDS SUMMARY | 2024-05-01 00:27 | XMS_ITS | Referral Summary ---
Author Organization [facility] Address [address] [facility] [place] [address] Care Team Providers [employer] Name Role Phone Ernesto Alfaro MD Primary Care Provider Source Comments [facility],non-owned Affiliates and Associated Physician Practices is amultiple site organization consisting of ambulatory clinics and hospital sitesin [place], [place], [place] and [place]. This disclosure is being madepursuant to the Care Everywhere program and may not contain all information available regarding this patient. 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 Acute cough (Primary Dx); Viral upper respiratory tract infection; Raynaud's disease without gangrene; Malignant neoplasm of upper-outer quadrant of left breast in female, estrogen receptor negative (HCC); Encounter for immunotherapy 04/17/2024 8:20 AM RESPIRATORY CARE SPECIALIST - 04/17/2024 11:59 PM RESPIRATORY CARE SPECIALIST Hospital Encounter [facility] [address] [place] [address] Ernesto Alfaro MD Discharge Disposition: Home or Self Care 04/10/2024 Travel 04/10/2024 8:45 AM RESPIRATORY CARE SPECIALIST Office Visit [facility] - Orthopedics [address] [place] [address] [place] [address] Patrick Burgos, Fauzia Abad PA-C Other closed fracture of distal end of right femur, sequela (Primary Dx) 04/09/2024 Travel 04/09/2024 9:00 AM RESPIRATORY CARE SPECIALIST Office Visit [facility] - Hematology/Oncolog y [address] [place] [phone] Karli Carpenter, INSPECTOR W[employer] PRODU[employer]-ENGINE TESTER Malignant neoplasm of upper-outer quadrant of left breast in female, estrogen receptor negative (HCC) (Primary Dx); Encounter for immunotherapy; Viral upper respiratory tract infection; High risk for chemotherapy-induced infectious complication; Nausea and vomiting, unspecified vomiting type; Diarrhea, unspecified type; Diabetic polyneuropathy associated with diabetes mellitus due to underlying condition (HCC) 04/09/2024 8:12 AM RESPIRATORY CARE SPECIALIST - 04/09/2024 11:59 PM RESPIRATORY CARE SPECIALIST Hospital Encounter [facility] [address] [place] [phone] Ernesto Alfaro MD Discharge Disposition: Home or Self Care 04/05/2024 10:01 AM RESPIRATORY CARE SPECIALIST - 04/05/2024 11:59 PM RESPIRATORY CARE SPECIALIST Hospital Encounter [facility] ON[facility] [address] [place] [phone] Kelsey Renner MD Discharge Disposition: Home or Self Care 03/30/2024 Telephone [facility] [address] [place] [phone] Candace Wilkes RN Appointment 03/27/2024 Travel 03/19/2024 Travel 03/19/2024 8:30 AM RESPIRATORY CARE SPECIALIST - 03/19/2024 11:59 PM RESPIRATORY CARE SPECIALIST Hospital Encounter [facility] [address] [place] [phone] Ernesto Alfaro MD Discharge Disposition: Home or Self Care 03/19/2024 9:20 AM RESPIRATORY CARE SPECIALIST Office Visit [facility] - Hematology/Oncolog y [address] [place] [phone] Redd Middleton MD Malignant neoplasm of upper-outer [...] vomiting, unspecified vomiting type; Hard of hearing 03/18/2024 Orders Only [facility] [address] [place] [phone] Redd Middleton MD Malignant neoplasm of upper-outer quadrant of left breast in female, estrogen receptor negative (HCC) 02/27/2024 Travel 02/27/2024 8:40 AM RESPIRATORY CARE SPECIALIST - 02/27/2024 11:59 PM RESPIRATORY CARE SPECIALIST Hospital Encounter [address] [address] Redd Middleton MD Discharge Disposition: Home or Self Care 02/27/2024 9:20 AM RESPIRATORY CARE SPECIALIST Office Visit [facility] - Hematology/Oncolog y [address] [place] [phone] Redd Middleton MD Malignant neoplasm of upper-outer [...] unspecified type; Drug-induced nonautoimmune hemolytic anemia (HCC) 02/21/2024 Travel 02/21/2024 11:00 AM RESPIRATORY CARE SPECIALIST Office Visit [facility] - Orthopedics [address] [place] [phone] Patrick Burgos DO Postoperative wound infection (Primary Dx); Painful orthopaedic hardware (HCC) 02/07/2024 Travel 02/07/2024 10:20 AM RESPIRATORY CARE SPECIALIST Office Visit [facility] - Hematology/Oncolog y [address] [place] [address] Kelsey Renner MD Willis, Maurice, MD Type 2 diabetes mellitus with hyperglycemia, 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 (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) (Primary Dx); Simple chronic [...] for chemotherapy-induced infectious complication 02/07/2024 9:01 AM RESPIRATORY CARE SPECIALIST - 02/07/2024 11:59 PM RESPIRATORY CARE SPECIALIST Hospital Encounter [facility] [address] [place] [phone] Unknown, Provider Redd Middleton MD Discharge Disposition: Home or Self Care 02/07/2024 7:30 AM RESPIRATORY CARE SPECIALIST - 02/07/2024 9:00 AM RESPIRATORY CARE SPECIALIST Hospital Encounter [address] [address] Kelsey Renner MD Discharge Disposition: Home or Self Care 02/03/2024 Telephone [facility] - Pulmonology [id number] [place] [phone] Ryan Narvaez MD Establish Care 01/31/2024 Orders Only [facility]Oncolog y [address] [place] [phone] Redd Middleton MD 01/31/2024 Travel 01/31/2024 11:00 AM RESPIRATORY CARE SPECIALIST Office Visit [facility] - Orthopedics [address] [place] [phone] Patrick Burgos DO Postoperative wound infection (Primary Dx) 01/30/2024 Orders Only [facility] - Hematology/Oncolog y [address] [place] [phone] Redd Middleton MD from Last 3 Months Allergies Active Allergy Reactions Criticality Noted Date [...] sequela 10/25/2023 Elevated erythrocyte sedimentation rate 06/05/19 24 CRP elevated 06/05/2023 Foot pain, right 06/05/2023 Cellulitis of right lower extremity 06/05/2023 [place] (acute kidney injury) 06/05/2023 Cellulitis 02/22/2023 High risk for chemotherapy-induced infectious co mplication 02/15/2023 Chemotherapy-induced neutropenia 02/15/2023 Anemia 01/07/2023 Thrombocytopenia, secondary 01/07/2023 Trauma 01/04/2023 Other closed fracture of dis nir end of right femur, initial encounter 01/04/2023 Hyperglycemia 12/17/2022 Type 2 diabetes mellitus wit h hyperglycemia, unspecified whether residential insulin use 12/17/2022 Nausea and vomiting, unspecified vomiting type 0 12/17/2022 Malignant neoplasm of upper- outer quadrant of left breast in female, estrogen receptor negative 11/15/2022 Cancer Staging:Clinical stage from 11/01/2022:Stage IIIB(cT2, cN1(f), cM0, G2, ER-, NH-, HER2-) - Signed by Sena Blum MD on 11/15/2022 Pathologic stage from 07/22/2023: ypT0, pN0(sn), cM0, G3, ER-, NH-, HER2- - Signed by Sena Blum MD [...] fibrillation 02/16/2022 Major depressive disorder in remission Hypokalemia 02/16/2022 Vitamin D deficiency 02/16/2022 Wound [...] In 12/2016, had 2 lipomas removed from [facility], developed infection of the one over the antecubital fossa. Eventually referred to Dr. Ortez at [facility], underwent multiple I&Ds and Matristem placement. Finally closed in 2017. 11/10/17 had release of trigger finger of [...] wit hout foreign body, subsequent encounter 06/10/2021 Immunizations Name Administration Dates Next Due INFLUENZA [...] 12/27/2016 TDAP (7yrs+) 01/04/2023(Deferred: Patient braxton garcia) Social History Tobacco Use Types Packs/Day Years [...] Recorded Patient Health Questionnaire-2 Score 0 08/12/2023 [facility] Occupat ional Health - Occupational Stress [...] place to sleep or slept in a fci (including now)? No 11/10/2023 Sex and Gender Information Value Date Recorded Sex Assigned at Not on file Gender Identity Female 09/24/2023 8:56 AM CDT Sexual Orientation Not on file Last Filed Vital Signs Vital Sign Reading Time Taken Comments Blood Pressure 113/55 04/17/2024 8:51 AM RESPIRATORY CARE SPECIALIST Pulse 79 04/17/2024 8:51 AM RESPIRATORY CARE SPECIALIST Temperature 37.1 C (98.8 F) 04/17/2024 8:51 AM RESPIRATORY CARE SPECIALIST Respiratory Rate 18 04/17/2024 8:51 AM RESPIRATORY CARE SPECIALIST Oxygen Saturation 93% 04/17/2024 8:51 AM RESPIRATORY CARE SPECIALIST Inhaled Oxygen Concentration 50% 02/25/2023 1 0:00 AM RESPIRATORY CARE SPECIALIST Weight 71.7 kg (158 lb) 04/17/2024 8:51 AM RESPIRATORY CARE SPECIALIST Height 157.5 cm (5' 2.01 ) 02/27/2024 9:13 AM CS T Body Mass Index 28.89 02/27/2024 9:13 AM RESPIRATORY CARE SPECIALIST Functional Status Functional Status Response Date of Assess ment Is person deaf or have serious hearing difficult y? Yes 11/10/2023 Is person blind or have serious difficulty seein g? No 11/10/2023 Does person have serious dif ficulty walking/climbing stairs? Yes 11/10/2023 Does person have difficulty dressing/bathing? Ye s 11/10/2023 Does person have difficulty doing errands alone? Yes 11/10/2023 Cognitive Status Response Date of Assessm ent Does person have difficulty concentrating/remembering/making decisions? No 11/10/2023 Plan of Treatment Upcoming Encounters Date Type Department Care Team (Late st Contact Info) Description 05/07/2024 9:20 AM RESPIRATORY CARE SPECIALIST Office Visit [facility] - Hematology/Oncology [address] [place] [phone] Redd Middleton MD [address] [place] [address] 05/08/2024 8:40 AM RESPIRATORY CARE SPECIALIST Hospital Encounter [facility] [address] [place] [phone] Ernesto Alfaro MD [address] [place] [phone] 05/08/2024 8:45 AM RESPIRATORY CARE SPECIALIST Office Visit [facility] - Orthopedics [address] [facility] [place] [address] Patrick Burgos, [address] [place] [address] [place] [address] 05/29/2024 9:00 AM CDT Appointment [facility] [address] [place] [phone] Ernesto Alfaro MD [address] [place] [phone] 08/02/2024 9:30 AM CDT Office Visit [facility] - General Surgery [address] [place] [phone] Sena Blum MD [address] [facility] [address] [place] [address] 12/05/2024 10:00 AM CDT Appointment [facility] [address] [place], [place] [phone] Kelsey Renner MD [address] [place] [phone] 02/11/2025 8:00 AM RESPIRATORY CARE SPECIALIST [facility]ointment [facility] [address] [place] [address] Goals Goal Patient Goal Type Associated Problems Recent Progress Patient-Stated? Author Skin Integrity General Mer Beck RN Note: Expected end date: 4 weeks Skin integrity is maintained or improved. Interventions: Inspect under all devices; continue local wound care. Medical Devices Implanted Type Area Medical Education Specialist Device Identifier Shelf Expiration Date Model / Serial / Lot Graft Tissue Matristem Micromatrix Prcn - [id number] Implanted:Qty: 1 on 08/31/2017 by Juan Ortez MD at [facility] Left: Arm [employer] 06/19/2019 [id number] / [id number] / [id number] Description:Left AC wound Graft Tissue Cytal 31c84cw Mesh Brn - [id number] Implanted:Qty: 1 on 08/31/2017 by Juan Ortez MD at [facility] Left: Arm [employer] 06/19/2019 [id number] / [id number] / [id number] Description:Left Ac Graft Tissue Matristem Micromatrix Prcn - [id number] Implanted:Qty: 1 on 12/22/2017 by Juan Ortez MD at [facility] Right: Hand [employer] 03/20/2019 DG4551 / [id number] / [id number] Mtrx Tissue 5x5cm Cytal Mesh Brn - [id number] Implanted:Qty: 1 on 12/22/2017 by Juan Ortez MD at [facility] Right: Hand [employer] 10/19/2019 [id number] / [id number] / [id number] Mtrx Tissue 5x5cm Cytal Mesh Brn - [id number] Implanted:Qty: 1 on 05/25/2018 by Juan Ortez MD at [facility] Right: Hand [employer] 12/19/2019 [id number] / [id number] / [id number] Mtrx Tissue 5x5cm Cytal Mesh Brn Implanted:Qty: 1 on 08/02/2018 by Juan Ortez MD at [facility] Right: Hand [employer] 06/18/2020 [id number] / / Mtrx Tissue Micromatrix Prcn Bldr - [id number] Implanted:Qty: 1 on 01/03/2019 by Juan Ortez MD at [facility] Right: Hand [employer] 09/17/2020 HP4721 / [id number] / [id number] Mtrx Tissue 5x5cm Cytal Prcn Bldr Brn - [id number] Implanted:Qty: 1 on 01/03/2019 by Juan Ortez MD at [facility] Right: Hand [employer] 06/18/2020 [id number] / [id number] / [id number] Mtrx Tissue 5x5cm Gentrix Prcn Urn Bldr - [id number] Implanted:Qty: 1 on 05/23/2019 by Juan Ortez MD at [facility] Right: Hand [employer] 01/18/2021 [id number] / [id number] / [id number] Mtrx Tissue 5x5cm Cytal Prcn Bldr Brn - [id number] Implanted:Qty: 1 on 05/23/2019 by Juan Ortez MD at [facility] Right: Hand [employer] 11/18/2020 [id number] / [id number] / [id number] Mtrx Tissue Micromatrix Prcn Bldr - [id number] Implanted:Qty: 1 on 05/23/2019 by Juan Ortez MD at [facility] Right: Hand [employer] 01/18/2021 [id number] / [id number] / [id number] Mtrx Tissue Micromatrix Prcn Bldr - [id number] Implanted:Qty: 1 on 09/12/2019 by Juan Ortez MD at [facility] Right: Hand [employer] 11/18/2020 SD0431 / [id number] / [id number] Mtrx Tissue 5x5cm Cytal Prcn Bldr Brn - [id number] Implanted:Qty: 1 on 09/12/2019 by Juan Ortez MD at [facility] Right: Hand [employer] 04/20/2021 [id number] / [id number] / [id number] Graft Bone Canc 4-9.5mm 15cc Frzdr p - [id number] Implanted:Qty: 1 on 04/07/2021 by Cristo Lewis MD at [facility] Right: Ankle [employer] 11/16/2024 [id number] / [id number] / Hydromark Breast Biopsy Site Marker Implanted:Qty: 1 on 11/01/2022 by Norma Carrasquillo MD at [facility] Left: Axilla [employer] [id number] 12/03/2024 4009-05-05-T1 / / [id number] Ultracor Twirl Breast Tissue Marker Implanted:Qty: 1 on 11/01/2022 by Norma Carrasquillo MD at [facility] Left: Breast [employer] [id number] 07/16/2025 [id number] / / Port Implinfn Powerport Clrvu Argd Shanae Implanted:Qty: 1 on 11/24/2022 at [facility] Right: Chest [employer] 12/19/2023 [id number] / / [id number] Description:RIJ inserted by Dr. Lanza [facility] 3.5-4 Mm Penny Screw Nonster Implanted:Qty: 1 on 01/05/2023 by Patrick Burgos DO at [facility] Right: Knee [employer] [id number] / / Screw 4mm 5mm 80mm .5 Thrd Rvrs Cut Flut Implanted:Qty: 1 on 01/05/2023 by Patrick Burgos DO at [facility] Right: Knee [employer] [id number] / / Screw 3.5mm 5mm 75mm Ft Rvrs Cut Flut Implanted:Qty: 1 on 01/05/2023 by Patrick Burgos DO at [facility] Right: Knee [employer] [id number] / / Nail Im 13mm 34cm Ntr Nail Fem Rtrgd Ant Implanted:Qty: 1 on 01/05/2023 by Patrick Burgos DO at [facility] Right: Knee [employer] [id number] / / Pin Fx 355cm 3mm Fem Nonthread Rtrgd Ntr Implanted:Qty: 1 on 01/05/2023 by Patrick Burgos DO at [facility] Right: Knee [employer] [id number] / / Screw 6mm 3.5mm 85mm Ft Slf-Tap Fx Ang Implanted:Qty: 1 on 01/05/2023 by Patrick Burgos DO at [facility] Right: Knee [employer] [id number] / / Screw 6mm 3.5mm 85mm Ft Slf-Tap Fx Ang Implanted:Qty: 1 on 01/05/2023 by Patrick Burgos DO at [facility] Right: Knee [employer] [id number] / / Screw 6mm 3.5mm 75mm Ft Slf-Tap Fx Ang Implanted:Qty: 1 on 01/05/2023 by Patrick Burgos DO at [facility] Right: Knee [employer] [id number] / / Screw 5mm 3.5mm 40mm Ft Slf-Tap Fx Ang Implanted:Qty: 2 on 01/05/2023 by Patrick Burgos DO at [facility] Right: Knee [employer] [id number] / / Screw 4.5mm 34mm Ft Stef Nonster Bone Implanted:Qty: 2 on 01/05/2023 by Patrick Burgos DO at [facility] Right: Knee [employer] [id number] / / Explanted Type Area Medical Education Specialist Device Identifier Shelf Expiration Date Model / Serial / Lot 2.7 Locking Explanted:Qty: 1 on 04/07/2021 by Cristo Lewis MD at [facility] Right: Ankle [employer] [id number] / / Screw 3.5mm 12mm Slf-Tap Cortx Evos Strl Explanted:Qty: 1 on 04/07/2021 by Cristo Lewis MD at [facility] Right: Ankle [employer] [id number] / / 3.5 Cortical Explanted:Qty: 1 on 04/07/2021 by Cristo Lewis MD at [facility] Right: Ankle [employer] [id number] / / Screw 3.5mm 14mm Slf-Tap Lck Evos Strl Explanted:Qty: 1 on 04/07/2021 by Cristo Lewis MD at [facility] Right: Ankle [employer] [id number] / / 6 Hole Clamp Implanted:Qty: 1 on 03/25/2021 by Cristo Lewis MD at [facility] Explanted:Qty: 1 on 12/09/2021 by Cristo Lewis MD at [facility] Right: Ankle [employer] [id number] / / Clamp Extfix Jtx 10.5-4mm Mini Mr Sf Bar Implanted:Qty: 1 on 03/25/2021 by Cristo Lewis MD at [facility] Explanted:Qty: 1 on 12/09/2021 by Cristo Lewis MD at [facility] Right: Ankle [employer] Trauma [id number] / / 5x35 Pin Implanted:Qty: 2 on 03/25/2021 by Cristo Lewis MD at [facility] Explanted:Qty: 2 on 12/09/2021 by Cristo Lewis MD at [facility] Right: Ankle [id number] / / Pin Trc 50mm 5mm Jtx Lng Ti Ntrd Strl Implanted:Qty: 1 on 03/25/2021 by Cristo Lewis MD at [facility] Explanted:Qty: 1 on 12/09/2021 by Cristo Lewis MD at [facility] Right: Ankle [employer] Trauma [id number] / / 4x35 Pin Implanted:Qty: 1 on 03/25/2021 by Cristo Lewis MD at [facility] Explanted:Qty: 1 on 12/09/2021 by Cristo Lewis MD at [facility] Right: Ankle [id number] / / Bar Pin Implanted:Qty: 3 on 03/25/2021 by Cristo Lewis MD at [facility] Explanted:Qty: 3 on 12/09/2021 by Cristo Lewis MD at [facility] Right: Ankle [employer] [id number] / / Post Extfix Jtx 30d Nonster Implanted:Qty: 2 on 03/25/2021 by Cristo Lewis MD at [facility] Explanted:Qty: 2 on 12/09/2021 by Cristo Lewis MD at [facility] Right: Ankle [employer] Trauma [id number] / / 300 Bar Implanted:Qty: 2 on 03/25/2021 by Cristo Lewis MD at [facility] Explanted:Qty: 2 on 12/09/2021 by Cristo Lewis MD at [facility] Right: Ankle [employer] [id number] / / Clamp Extfix Jtx 10.5mm Bar To Bar Mr Sf Implanted:Qty: 2 on 03/25/2021 by Cristo Lewis MD at [facility] Explanted:Qty: 2 on 12/09/2021 by Cristo Lewis MD at [facility] Right: Ankle [employer] Trauma [id number] / / T Plate 27 Implanted:Qty: 1 on 04/07/2021 by Cristo Lewis MD at [facility] Explanted:Qty: 1 on 12/09/2021 by Cristo Leiws MD at [facility] Right: Ankle [employer] [id number] / / 2.7 Cortical Implanted:Qty: 1 on 04/07/2021 by Cristo Lewis MD at [facility] Explanted:Qty: 1 on 12/09/2021 by Cristo Lewis MD at [facility] Right: Ankle [employer] [id number] / / 2.7 Cortical Implanted:Qty: 1 on 04/07/2021 by Cristo Lewis MD at [facility] Explanted:Qty: 1 on 12/09/2021 by Cristo Lewis MD at [facility] Right: Ankle [employer] [id number] / / Screw 2.7mm 4.5mm 32mm T8 2mm Slf-Tap Implanted:Qty: 1 on 04/07/2021 by Cristo Lewis MD at [facility] Explanted:Qty: 1 on 12/09/2021 by Cristo Lewis MD at [facility] Right: Ankle [employer] [id number] / / 2.7 Locking Implanted:Qty: 2 on 04/07/2021 by Cristo Lewis MD at [facility] Explanted:Qty: 2 on 12/09/2021 by Cristo Lewis MD at [facility] Right: Ankle [employer] [id number] / / 2.7 Locking Implanted:Qty: 1 on 04/07/2021 by Cristo Lewis MD at [facility] Explanted:Qty: 1 on 12/09/2021 by Cristo Lewis MD at [facility] Right: Ankle [employer] [id number] / / Screw 3.5mm 12mm Slf-Tap Cortx Evos Strl Implanted:Qty: 1 on 04/07/2021 by Cristo Lewis MD at [facility] Explanted:Qty: 1 on 12/09/2021 by Cristo Lewis MD at [facility] Right: Ankle [employer] [id number] / / 3.5 9 Hole Implanted:Qty: 1 on 04/07/2021 by Cristo Lewis MD at [facility] Explanted:Qty: 1 on 12/09/2021 by Cristo Lewis MD at [facility] Right: Ankle [employer] [id number] / / 3.5 Locking Implanted:Qty: 1 on 04/07/2021 by Cristo Lewis MD at [facility] Explanted:Qty: 1 on 12/09/2021 by Cristo Lewis MD at [facility] Right: Ankle [employer] [id number] / / Screw 3.5mm 14mm Slf-Tap Lck Evos Strl Implanted:Qty: 2 on 04/07/2021 by Cristo Lewis MD at [facility] Explanted:Qty: 2 on 12/09/2021 by Cristo Lewsi MD at [facility] Right: Ankle [employer] [id number] / / 3.5 Locking Implanted:Qty: 1 on 04/07/2021 by Cristo Lewis MD at [facility] Explanted:Qty: 1 on 12/09/2021 by Cristo Lewis MD at [facility] Right: Ankle [employer] [id number] / / 3.5 Locking Implanted:Qty: 1 on 04/07/2021 by Cristo Lewis MD at [facility] Explanted:Qty: 1 on 12/09/2021 by Cristo Lewis MD at [facility] Right: Ankle [employer] [id number] / 3.5 Cortical Implanted:Qty: 1 on 04/07/2021 by Cristo Lewis MD at [facility] Explanted:Qty: 1 on 12/09/2021 by Cristo Lewis MD at [facility] Right: Ankle [employer] [id number] / 3.5 Cortical Implanted:Qty: 1 on 04/07/2021 by Cristo Lewis MD at [facility] Explanted:Qty: 1 on 12/09/2021 by Cristo Lewis MD at [facility] Right: Ankle [employer] [id number] / 1/3 Tubular Plate Implanted:Qty: 1 on 04/07/2021 by Cristo Lewis MD at [facility] Explanted:Qty: 1 on 12/09/2021 by Cristo Lewis MD at [facility] Right: Ankle [employer] [id number] / / 3.5 Cortical Implanted:Qty: 1 on 04/07/2021 by Cristo Lewis MD at [facility] Explanted:Qty: 1 on 12/09/2021 by Cristo Lewis MD at [facility] Right: Ankle [employer] [id number] / / Screw 4mm 40mm P/T Penny Hip Ss Strl Bone Implanted:Qty: 1 on 04/07/2021 by Cristo Lewis MD at [facility] Explanted:Qty: 1 on 12/09/2021 by Cristo Lewis MD at [facility] Right: Ankle [employer] [id number] / / 3.5 Cortical Implanted:Qty: 1 on 04/07/2021 by Cristo Lewis MD at [facility] Explanted:Qty: 1 on 12/09/2021 by Crisot Lewis MD at [facility] Right: Ankle [employer] [id number] / / 3.5 Locking Implanted:Qty: 2 on 04/07/2021 by Cristo Lewis MD at [facility] Explanted:Qty: 2 on 12/09/2021 by Cristo Lewis MD at [facility] Right: Ankle [employer] [id number] / / 2.7 Cortical Implanted:Qty: 1 on 04/07/2021 by Cristo Lewis MD at [facility] Explanted:Qty: 1 on 12/09/2021 by Cristo Lewis MD at [facility] Right: Ankle [employer] [id number] / / Wire K 1.6mm 150mm 1 End Troc Pnt Ss Explanted:Qty: 1 on 01/05/2023 at [facility] Right: Knee [employer] [id number] / / Screw 4mm 5mm 85mm .5 Thrd Rvrs Cut Flut Explanted:Qty: 1 on 01/05/2023 by Patrick Burgos DO at [facility] Right: Knee [employer] [id number] / / 2.0 K-Wire Explanted:Qty: 1 on 01/05/2023 by Patrick Burgos DO at [facility] Right: Knee [id number] / / Screw 6mm 3.5mm 80mm Ft Slf-Tap Fx Ang Explanted:Qty: 1 on 01/05/2023 by Patrick Burgos DO at [facility] Right: Knee [employer] [id number] / / Wshr Orth Ss 3.5-4 Mm Penny Screw Nonster Explanted:Qty: 1 on 01/05/2023 by Patrick Burgos DO at [facility] Right: Knee [employer] [id number] / / Screw 5mm 3.5mm 45mm Ft Fx Ang Hex Head Explanted:Qty: 1 on 01/05/2023 by Patrick Burgos DO at [facility] Right: Knee [employer] [id number] / / Procedures Procedure Name Priority Date/Time Associated Diagnosis Comments PLATELET COUNT AUTO CITRATED BLOOD STAT 04/17/2024 11:10 AM RESPIRATORY CARE SPECIALIST TSH [place]UC[place] 04/17/2024 8:43 AM RESPIRATORY CARE SPECIALIST Malignant neoplasm of upper-outer quadrant of left breast in female, estrogen receptor negative (HCC) COMPREHENSIVE METABOLIC PANEL STAT 04/17/2024 8:43 AM RESPIRATORY CARE SPECIALIST Malignant neoplasm of upper-outer quadrant of left breast in female, estrogen receptor negative (HCC) CBC W AUTO DIFFERENTIAL STAT 04/17/2024 8:43 AM RESPIRATORY CARE SPECIALIST Malignant neoplasm of upper-outer quadrant of left breast in female, estrogen receptor negative (HCC) TSH [place]UC[place] 04/09/2024 8:42 AM RESPIRATORY CARE SPECIALIST Malignant neoplasm of upper-outer quadrant of left breast in female, estrogen receptor negative (HCC) COMPREHENSIVE METABOLIC PANEL STAT 04/09/2024 8:42 AM RESPIRATORY CARE SPECIALIST Malignant neoplasm of upper-outer quadrant of left breast in female, estrogen receptor negative (HCC) CBC W AUTO DIFFERENTIAL STAT 04/09/2024 8:42 AM RESPIRATORY CARE SPECIALIST Malignant neoplasm of upper-outer quadrant of left breast in female, estrogen receptor negative (HCC) TSH [place] 03/19/2024 9:13 AM RESPIRATORY CARE SPECIALIST Malignant neoplasm of upper-outer quadrant of left breast in female, estrogen receptor negative (HCC) COMPREHENSIVE METABOLIC PANEL STAT 03/19/2024 9:13 AM RESPIRATORY CARE SPECIALIST Malignant neoplasm of upper-outer quadrant of left breast in female, estrogen receptor negative (HCC) CBC W AUTO DIFFERENTIAL STAT 03/19/2024 9:13 AM RESPIRATORY CARE SPECIALIST Malignant neoplasm of upper-outer quadrant of left breast in female, estrogen receptor negative (HCC) TSH [place] 02/27/2024 9:04 AM RESPIRATORY CARE SPECIALIST Malignant neoplasm of upper-outer quadrant of left breast in female, estrogen receptor negative (HCC) COMPREHENSIVE METABOLIC PANEL STAT 02/27/2024 9:04 AM RESPIRATORY CARE SPECIALIST Malignant neoplasm of upper-outer quadrant of left breast in female, estrogen receptor negative (HCC) CBC W AUTO DIFFERENTIAL STAT 02/27/2024 9:04 AM RESPIRATORY CARE SPECIALIST Malignant neoplasm of upper-outer quadrant of left breast in female, estrogen receptor negative (HCC) TSH [place] 02/07/2024 9:50 AM RESPIRATORY CARE SPECIALIST Malignant neoplasm of upper-outer quadrant of left breast in female, estrogen receptor negative (HCC) COMPREHENSIVE METABOLIC PANEL STAT 02/07/2024 9:50 AM RESPIRATORY CARE SPECIALIST Malignant neoplasm of upper-outer quadrant of left breast in female, estrogen receptor negative (HCC) CBC W AUTO DIFFERENTIAL STAT 02/07/2024 9:50 AM RESPIRATORY CARE SPECIALIST Malignant neoplasm of upper-outer quadrant of left breast in female, estrogen receptor negative (HCC) MAMMO BILAT DIAGNOSTIC W CHARLES Routine 02/07/2024 9:00 AM RESPIRATORY CARE SPECIALIST Malignant neoplasm of upper-outer quadrant of left breast in female, estrogen receptor negative (HCC) HEPATITIS C AB SCREEN RFLX NAAT QUANT Routine 11/10/2023 11:36 AM CDT HEMOGLOBIN A1C Routine 11/09/2023 9:55 AM CDT Acute pain of right knee from Last 3 Months or Most Recently Relevant to Health Maintenance Results * PLATELET COUNT AUTO CITRATED BLOOD (04/17/2024 11:10 AM RESPIRATORY CARE SPECIALIST) [facility] Platelet Count Citrated 04/17/2024 12:44 PM [facility] Comment:Unable to report Blood BLOOD SPECIMEN / Unknown Venipuncture / Unknown 04/17/2024 11:10 AM RESPIRATORY CARE SPECIALIST 04/17/2024 11:18 AM RESPIRATORY CARE SPECIALIST Redd Middleton MD LAB - HEMATOLOGY ORD ERABLES [address] [address], [facility] [phone] * (ABNORMAL) CBC W/ DIFFERENTIAL (04/17/2024 8:43 AM RESPIRATORY CARE SPECIALIST) Only the most recent of5 resultswithin the time period is included. [facility] WBC 9.7 4.0 - 10.7 x10E9/L 04/17/2024 10:58 AM [facility] RBC Count 3.69(L) 3.90 - 5.20 x10E12/L 04/17/2024 10:58 AM [facility] Hemoglobin 11.4(L) 11.9 - 15.8 g/dL 04/17/2024 10:58 AM [facility] Hematocrit 35.4 34.8 - 46.1 % 04/17/2024 10:58 AM [facility] MCV 95.9 80.0 - 98.0 fL 04/17/2024 10:58 AM [facility] MCH 30.9 26.7 - 33.6 pg 04/17/2024 10:58 AM [facility] MCHC 32.2 31.7 - 36.3 g/dL 04/17/2024 10:58 AM [facility] RDW-CV 13.9 11.3 - 14.8 % 04/17/2024 10:58 AM [facility] Platelet Count 04/17/2024 10:58 AM [facility] Comment:Platelets clumped on slide but appears adequate. Recommend repeat with a sodium citrate blue top tube. MPV 04/17/2024 10:58 AM [facility] Comment:Unable to report Preliminary Absolute Neutrophil 7.64(H) 1.60 - 7.50 x10E9/L 04/17/2024 10:58 AM [facility] Comment:Preliminary ANC pend ing manual confirmation Neutrophil % 79.2(H) 41.0 - 74.0 % 04/17/2024 10:58 AM [facility] Lymphocyte % 10.9(L) 17.0 - 47.0 % 04/17/2024 10:58 AM [facility] Monocyte % 6.5 3.0 - 11.0 % 04/17/2024 10:58 AM [facility] Eosinophil % 1.8 0.0 - 7.0 % 04/17/2024 10:58 AM [facility] Basophil % 0.4 0.0 - 1.6 % 04/17/2024 10:58 AM [facility] Immature Granulocytes % 1.2(H) 0.0 - 1.0 % 04/17/2024 10:58 AM [facility] Neutrophil Absolute 7.64(H) 1.60 - 7.50 x10E9/L 04/17/2024 10:58 AM [facility] Lymphocyte Absolute 1.05 1.00 - 4.40 x10E9/L 04/17/2024 10:58 AM [facility] Monocyte Absolute 0.63 0.15 - 1.00 x10E9/L 04/17/2024 10:58 AM [facility] Eosinophil Absolute 0.17 0.00 - 0.60 x10E9/L 04/17/2024 10:58 AM [facility] Basophil Absolute 0.04 0.00 - 0.13 x10E9/L 04/17/2024 10:58 AM [facility] Blood BLOOD SPECIMEN / Unknown Venipuncture / Unknown 04/17/2024 8:43 AM RESPIRATORY CARE SPECIALIST 04/17/2024 9:15 AM RESPIRATORY CARE SPECIALIST Redd Middleton MD LAB - HEMATOLOGY ORD ERABLES [facility] [address] [place] [address], [facility] [phone] * (ABNORMAL) COMPREHENSIVE METABOLIC PANEL (04/17/2024 8:43 AM [facility]) Only the most recent of5 resultswithin the time period is included. BUN 12 7 - 26 mg/dL 04/17/2024 9:37 AM [facility] Creatinine 1.01(H) 0.56 - 0.96 mg/dL 04/17/2024 9:37 AM [facility] Sodium 138 136 - 145 mmol/L 04/17/2024 9:37 AM [facility] Potassium 4.8(H) 3.5 - 4.5 mmol/L 04/17/2024 9:37 AM [facility] Chloride 104 98 - 107 mmol/L 04/17/2024 9:37 AM [facility] CO2 27 22 - 29 mmol/L 04/17/2024 9:37 AM [facility] Glucose 231(H) 70 - 99 mg/dL 04/17/2024 9:37 AM [facility] Calcium 9.3 8.4 - 10.2 mg/dL 04/17/2024 9:37 AM [facility] Protein Total 7.2 6.0 - 8.3 g/dL 04/17/2024 9:37 AM [facility] Albumin 2.8(L) 3.4 - 5.0 g/dL 04/17/2024 9:37 AM [facility] Bilirubin Total 0.2 0.2 - 1.2 mg/dL 04/17/2024 9:37 AM [facility] Alkaline Phosphatase 120 40 - 150 U/L 04/17/2024 9:37 AM [facility] ALT 22 5 - 55 U/L 04/17/2024 9:37 AM [facility] AST 22 5 - 34 U/L 04/17/2024 9:37 AM [facility] Anion Gap 7 6 - 16 04/17/2024 9:37 AM [facility] BUN/Creatinine Ratio 12 7 - 23 04/17/2024 9:37 AM [facility] Osmolality Calculated 293 275 - 295 mOsm/kg 04/17/2024 9:37 AM [facility] Albumin/Globulin Ratio 0.6(L) 1.1 - 2.3 04/17/2024 9:37 AM [facility] eGFR by CKD-EPI 59(L) >=90 mL/min/1.7 3 m2 04/17/2024 9:37 AM [facility] Blood BLOOD SPECIMEN / Unknown Venipuncture / Unknown 04/17/2024 8:43 AM RESPIRATORY CARE SPECIALIST 04/17/2024 9:01 AM RESPIRATORY CARE SPECIALIST Redd Middleton MD LAB - CHEMISTRY DIAMANTE CARCAMO [address] [address], [place] [phone] * TSH (04/17/2024 8:43 AM RESPIRATORY CARE SPECIALIST) Only the most recent of5 resultswithin the time period is included. TSH 2.067 0.350 - 4.940 uIU/mL 04/17/2024 9:47 AM [facility] Blood BLOOD SPECIMEN / Unknown Venipuncture / Unknown 04/17/2024 8:43 AM RESPIRATORY CARE SPECIALIST 04/17/2024 9:01 AM RESPIRATORY CARE SPECIALIST Redd Middleton MD LAB - CHEMISTRY DIAMANTE CARCAMO [address] [address], [place] [phone] * Mammo Bilat Diagnostic W Charles (02/07/2024 9:00 AM RESPIRATORY CARE SPECIALIST) Anatomical Region Laterality Modality Breast Bilateral Mammography 02/07/2024 8:25 AM RESPIRATORY CARE SPECIALIST Impressions 02/07/2024 10:42 AM RESPIRATORY CARE SPECIALIST IMPRESSION: No mammographic evidence of malignancy in [...] CATEGORY 2: BENIGN. Report dictated by Monica Knapp [facility], [facility] (breast imaging fellow). I, Alondra Mancia DO have personally reviewed and interpreted this examination/study. > Interpreting Provider: Alondra Mancia DO on 02/07/2024 10:42 AM Narrative 02/07/2024 10:42 AM RESPIRATORY CARE SPECIALIST EXAMINATIONS: BILATERAL DIGITAL DIAGNOSTIC MAMMOGRAM AND BREAST TOMOSYNTHESIS LOCATION: [facility] EXAM DATE: 02/07/2024 HISTORY: Prior history of [...] RFLX NAAT QUANT (11/10/2023 11:36 AM CDT) Pathologist [facility] Hepatitis C Antibody Non-react alia Non-reac tive 11/10/2023 12:29 PM CDT [facility] Comment:Hepatitis C Antibody screen indicates no serologic [...] Brizuela MD LAB - CHEMISTRY DIAMANTE CARCAMO [facility] Organization Address City/State/[facility] Co de Phone Number [facility] [address] [place] [address], [facility] [phone] * (ABNORMAL) HEMOGLOBIN A1C (11/09/2023 9:55 AM CDT) [facility] Hemoglobin A1c 6.5(H) <=5.6 % 11/09/2023 12:42 PM CDT [facility] Estimated Average Glucose 140 mg/dL 11/09/2023 12:42 PM T [facility] Comment: HbA1c Interpretation: Normal : < 5.7% Pre-diabetes: 5.7-6.4% Diabetes: Equal to or greater than 6.5% Test results diagnostic of diabetes should be repeated for confirmation. Treatment target values recommended by ADA and other clinical organizations should be used to evaluate metabolic control in patients. Reference: [place] [employer], Standards of Care in Diabetes [...] Brizuela MD LAB - CHEMISTRY DIAMANTE CARCAMO [facility] [address] [place] [address], [facility] [phone] from Last 3 Months or Most Recently [...] 3:22 PM 01/12/2023 7:07 PM Care Teams [employer] Relationship Specialty Start Date End Date Ernesto Alfaro MD [address] [place] [address] PCP - General 01/03/17
--- OUTSIDE RECORDS SUMMARY | 2024-05-01 00:28 | XMS_ITS ---
Author Organization [facility] Address [address] [place], [place] [id number] Care Team Providers Care [employer] Name Role Phone Ernesto Alfaro Unavailable Unavailable JONNA LANGSTON Unavailable [phone] REASON FOR VISIT Patient presents for at-risk foot care . The patient has painful toenails that are causing difficulty with ambulation and shoegear. The onset is gradual. The patient has diabetes mellitus Encounters Encounter Location Date Provider Diagnosis [facility] [place] [address] [place], [place] [phone] 01/23/2024 JONNA LANGSTON Tinea unguium B35.1 ; Pain in right toe(s) M79.674 ; Pain in left toe(s) M79.675 ; Atherosclerosis of [place] arteries of extremities with intermittent claudication, bilateral [...] and necrotic tissue removed 01/23/2024 Pain in right toe(s) (ICD-10 - M79.674) 01/23/2024 Pain in left toe(s) (ICD-10 - M79.675) 01/23/2024 Atherosclerosis of [place] arteries of extremities with intermittent claudication, bilateral [...] the Amputation Prevention Guide. Plan Of Treatment Treatment Notes Assessment Notes Tinea unguium NAIL DEBRIDEMENT: Na ils 1-5 Bilateral were debrided extensively with nail nippers and emery board, reducing length and girth to pink healthy tissue with any subungual debris and necrotic tissue removed Type 2 diabetes mellitus wit h other circulatory complications Diabetic Foot Care: The patient was educated on diabetes and the lower extremity. The patient was instructed to check his feet daily to report any problems or signs of infection immediately. The patient was provided written information on Diabetic Foot Care as well as the Amputation Prevention Guide. Next Appt Details Follow Up: 10 - 12 weeks, Re ason: At-Risk Foot care, sooner if problems develop. Provider Name:JONNA LANGSTON, 08:40:00 AM, [address], [facility], [place], [place], [id number], Provider Name:JONNA LANGSTON, 08:30:00 AM, [address], [facility], [place], [place], [phone], Progress Notes * Brigido CARDENASOB:[birth year] (73 yo F)Acc No.[id number]:01/23/2024 Progress Notes Patient: Otilia LA Provider: Larry Langston DPM :1950 A ge:73 Y S ex:Female Date:01/23/2024 Address:[address] [place], [place] [id number] Subjective: * Chief Complaints: * Srinivas yuen presents for at-risk foot care . The patient has painful toenails that are causing difficulty with ambulation and shoegear. The onset is gradual. The patient has diabetes mellitus * HPI: H PI: General care Srinivas yuen presents to the office for at risk foot care. Patient states that their nails are thickened, elongated and painful. Patient states that it is aggravated by shoe gear. Onset is gradual. Patient denies being diabetic., Patient denies taking blood thinners., Date last seen by Dr. Alfaro was December 2023 I nitials hg, . , Patient presents to the office for diabetic foot care. Patient states that their nails are thickened, elongated and painful. Patient states that it is aggravated by shoe gear. Onset is gradual., Patient denies taking blood thinners., Date last seen by Dr. Leslie was July 2023., Initials JR. * ROS: G eneral / Constitutional: Patient denies c hills, fever, weight loss. ? M usculoskeletal: Patient denies w eakness. P atient complains of H /O OIF right ankle, hardware removal right ankle. P eripheral Vascular: Patient denies p ain / cramping in legs after exertion, ulceration of feet. S kin: Patient complains of f ungal nails, nail changes. ? N eurologic: Patient denies b alance difficulty, confusion, difficulty speaking, dizziness. * Medical History: * Surgical History: * Hospitalization/Major Diagno stic Procedure: * Medications: Objective: * Vitals: * Examination: P hysical Examination: General appearance: A lert, pleasant, well-nourished and in no acute distress. D ermatologic: Skin findings: S kin is thin, atrophic and lacking pedal hair. Nail pathology: N ails 1, 2, 3, 4, and 5 bilateral are elongated, thick, discolored, and dystrophic with subungual debris. They are painful to palpation. ? V ascular: Dorsalis pedis pulse: 1 /4 b ilateral. Posterior tibial pulse: 0 /4 bilateral. Capillary refill: g reater than 3 seconds. Edema: N o edema bilateral. N eurologic: Gross sensation G rossly intact to light touch. There is negative Tinel's sign. M usculoskeletal: Muscle Strength M uscle strength is 5/5 in regards to dorsiflexion, plantarflexion, inversion, and eversion in bilateral lower extremities. ? Assessment: * Assessment: 1. T inea unguium - B35.1 (Primary) 2 . P ain in right toe(s) - M79.674? 3. P ain in left toe(s) - M79.675 4 . A therosclerosis of [place] arteries of extremities with intermittent claudication, bilateral legs - I70.213 5 . T ype 2 diabetes mellitus with other circulatory complications - E11.59 Plan: * Treatment: 2. T ype 2 diabetes mellitus with other circulatory complications Notes: Diabetic Foot Care: The patient was educated on diabetes and the lower extremity. The patient was instructed to check his feet daily to report any problems or signs of infection immediately. The patient was provided written information on Diabetic Foot Care as well as the Amputation Prevention Guide. * Procedure Codes: * Follow Up: 1 0 - 12 weeks (Reason: At-Risk Foot care, sooner if problems develop.) * Billing Information: * Visit Code: 76955 Office Visit, New Pt., Level 3. * Procedure Codes: * R CARRIER Sign off status: Completed true * Provider: Larry Langston DPM Date: 03/24/2023 Generated for Parker michaud/Corey/Melida on: 0 05/01/2024 12:27 AM PAPER CARRIER History and Physical Notes * HPI (History of Present Illness) Category Sub-Category Detail Notes Category Not es HPI General care Patient presents to the office for at risk foot care. Patient states that their nails are thickened, elongated and painful. Patient states that it is aggravated by shoe gear. Onset is gradual. Patient denies being diabetic., Patient denies taking blood thinners., Date last seen by Dr. Alfaro was December 2023 Initials hg, . , Patient presents to the office for diabetic foot care. Patient states that their nails are thickened, elongated and painful. Patient states that it is aggravated by shoe gear. Onset is gradual., Patient denies taking blood thinners., Date last seen by Dr. Leslie was July 2023., Initials JR Examination Category Sub-Category Detail Notes Category Not es Dermatologic Skin findings: Skin is thin, at rophic and lacking pedal hair Nail pathology: Nails 1, 2, 3, 4, an d 5 bilateral are elongated, thick, discolored, and dystrophic with subungual debris. They are painful to palpation Neurologic Gross sensation Grossly intact t o light touch. There is negative Tinel's sign Vascular Dorsalis pedis pulse: 1/4 bilateral Edema: No edema bilateral Capillary refill: greater than 3 secon ds Posterior tibial pulse: 0/4 bilateral Physical Examination General appearance: Alert, pleasant, well-nourished and in no acute distress Musculoskeletal Muscle Strength Muscle strength is 5/5 in regards to dorsiflexion, plantarflexion, inversion, and eversion in bilateral lower extremities
--- OUTSIDE RECORDS SUMMARY | 2024-05-01 00:28 | XMS_ITS | Patient Health Summary ---
Author Organization [facility] Address [address] [place] [address] Care Team Providers Care Generation Engineer Name Role Phone Ernesto Alfaro MD Primary Care Provider Note from [facility],non-owned Affiliates and Associated Physician Practices is amultiple site organization consisting of ambulatory clinics and hospital sitesin [place], [place], [place] and [place]. This disclosure is being madepursuant to the Care Everywhere program and may not contain all information available regarding this patient. Last updated 17.[facility] Allergies * Aspirin(Nausea and/or Vomiting) -Medium Criticality * Cephalexin(Itching,Other) -Medium Criticality * Eucalyptus Oil(Rash) -Medium Criticality * Levofloxacin(Unknown) * Menthol(Other) * Menthol Eucalyptus Flavor(Rash,Itching,Other) -Medium Criticality * Quinine(Rash) -High Criticality * Quinolones(Unknown,Itching) -High Criticality * Aspirin(Nausea and/or Vomiting,Other) -Low Criticality,Inactive Medications * Be aware that medications may not be up to date on this document. Alwaysverify current medications with the patient. * HYDROcodone-acetaminophen (NORCO) 5-325 MG tablet(Started 09/12/2019) Take 1 tablet by mouth every 8 hours as needed for Pain * apixaban (ELIQUIS) 5 MG tablet(Started 04/25/2021) Take 1 (one) tablet by mouth 2 times daily * gabapentin (Neurontin) 300 MG capsule(Started 01/12/2023) Take 1 (one) capsule by mouth 3 times daily * insulin aspart (NovoLOG) pen(Started 03/12/2023) Inject 0 (zero) Units to 12 (twelve) Units subcutaneously 3 times daily with meals * DULoxetine (Cymbalta) 60 MG capsule(Started 03/12/2023) Take 1 (one) capsule by mouth once daily * insulin glargine (Lantus/Semglee) 100 units/mL pen(Started 03/12/2023) Inject 15 (fifteen) Units subcutaneously at bedtime * atorvastatin (Lipitor) 10 MG tablet(Started 03/12/2023) Take 1 (one) tablet by mouth at bedtime * mometasone (Elocon) 0.1 % cream(Started 09/08/2023) Apply to affected area once daily 3 refills by 09/07/2024 * dilTIAZem HCl Coated Beads (DILTIAZEM CD PO) Pt unsure of dose * acetaminophen (Tylenol) 500 MG capsule(Started 10/27/2023) Take 2 (two) capsules by mouth every 6 hours as needed for Fever or Pain 1 refill by 10/26/2024 * ibuprofen (Advil) 200 MG capsule(Started 10/27/2023) Take 2 (two) capsules by mouth every 6 hours as needed for Pain 1 refill by 10/26/2024 * docusate sodium (Colace) 100 MG capsule(Started 10/27/2023) Take 1 (one) capsule by mouth once daily 1 refill by 10/26/2024 * ondansetron (Zofran) 8 MG tablet(Started 10/27/2023) Take 1 (one) tablet by mouth every 6 hours as needed for Nausea/Vomiting 1 refill by 10/26/2024 * oxyCODONE, immediate release, (Roxicodone) 5 MG tablet(Started 10/27/2023) Take 1 (one) tablet by mouth every 6 hours as needed * polyethylene glycol 3350 (Miralax) 17 GM/SCOOP powder(Started 10/27/2023) Take 17 (seventeen) g by mouth once daily * amoxicillin-clavulanate (Augmentin) 875-125 MG tablet(Started 11/19/2023) Take 2 (two) tablets by mouth 2 times daily * diphenoxylate-atropine (Lomotil) 2.5-0.025 MG tablet(Started 12/19/2023) Take 1 (one) tablet by mouth 3 times daily as needed for Diarrhea 2 refills by 06/16/2024 * prochlorperazine (Compazine) 10 MG tablet(Started 01/09/2024) Take 1 (one) tablet by mouth every 8 hours as needed for Nausea/Vomiting Reasons: Nausea and Vomiting caused by Cancer Chemotherapy 1 refill by 01/08/2025 * albuterol HFA (Proventil; Ventolin; Proair) 108 (90 Base) MCG/ACT inhaler (Started 02/15/2024) Inhale 2 (two) puffs by mouth every 4 hours as needed * methylPREDNISolone (Medrol Dosepak) 4 MG tablet(Started 04/09/2024) Take by mouth as directed <!--EPICS-->Follow package insert dosing for six day supply.<!--EPICE--> * benzonatate (Tessalon) 200 MG capsule(Started 04/17/2024) Take 1 (one) capsule by mouth 3 times daily as needed for Cough Ended Medications* ALBUTEROL IN(Discontinued) Inhale by mouth as needed * atorvastatin (Lipitor) 10 MG tablet(Started 11/24/2023)(Discontinued) Take 1 (one) tablet by mouth at bedtime * amoxicillin-clavulanate (Augmentin) 875-125 MG tablet(Started 04/09/2024) () Take 1 (one) tablet by mouth 2 times daily for 10 days Active Problems Problem Noted Date Diagnosed Date Acute cough 04/17/2024 Encounter for immunotherapy 04/06/2024 Breast cancer 11/08/2023 Diarrhea, unspecified type 11/08/2023 Diabetes 1.5, 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 Hard of hearing 11/08/2023 Open knee wound, [...] diabetes mellitus wit h hyperglycemia, unspecified whether group home insulin use 12/17/2022 Nausea and vomiting, unspecified vomiting type 0 12/17/2022 Malignant neoplasm of upper- outer quadrant of left breast in female, estrogen receptor negative 11/15/2022 Cancer Staging:Clinical stage from 11/01/2022:Stage IIIB(cT2, cN1(f), cM0, G2, ER-, IL-, HER2-) - Signed by Sena Blum MD on 11/15/2022 Pathologic stage from 07/22/2023: ypT0, pN0(sn), cM0, G3, ER-, IL-, HER2- - Signed by Sena Blum MD [...] 10/25/2019 COVID-19 09/07/2019 Postoperative wound infection 08/21/2019 Trigger finger, right ring finger 10/31/2017 Resolved [...] hout foreign body, subsequent encounter 06/10/2021 Immunizations * INFLUENZA VACCINE, TRIV. (AFLURIA, FLUZONE TRIVALENT; 6MO+) (IIV3)(Given 11/28/2020, 12/28/2013) * INFLUENZA VACCINE(Given 12/02/2021, 12/25/2015, 01/31/2015) * INFLUENZA VACCINE, ADJUVANTED, QUADR. (FLUAD QUADRIVALENT; 65Y+) (AIIV4)(Given 12/27/2022) * INFLUENZA VACCINE, ADJUVANTED, TRIV. (FLUAD TRIVALENT; 65Y+) (AIIV3)(Given 11/14/2018) * INFLUENZA VACCINE, HIGH-DOSE, QUADR. (FLUZONE HIGH-DOSE QUADRIVALENT; 65Y+), 0.7 ML (HD-IIV4)(Given 11/28/2020, 12/17/2019, 01/17/2018, 12/24/2016) * INFLUENZA VACCINE, HIGH-DOSE, TRIV. (FLUZONE HIGH-DOSE TRIVALENT; 65Y+) (HD-IIV3)(Given 01/17/2018, 12/24/2016) * INFLUENZA VACCINE, QUADR. (AFLURIA, FLUZONE QUADRIVALENT; 6MO+) (IIV4)(Given 01/31/2015) * INFLUENZA VACCINE, TRIV. (FLUZONE; FLULAVAL; FLUARIX; AFLURIA TRIVALENT; 6MO+), 0.5 ML (IIV3)(Given 12/25/2015) * PNEUMOCOCCAL PPSV23(Given 08/10/2018) * Pneumococcal Pcv13 Conj(Given 12/27/2016) Social History Tobacco Use Types Packs/Day Years [...] Recorded Patient Health Questionnaire-2 Score 0 08/12/2023 [facility] [place] [facility] Occup[facility] - Occupational Stress [...] place to sleep or slept in a senior living (including now)? No 11/10/2023 Sex and Gender Information Value Date Recorded Sex Assigned at Not on file Gender Identity Female 09/24/2023 8:56 AM CDT Sexual Orientation Not on file Last Filed Vital Signs Vital Sign Reading Time Taken Comments Blood Pressure 113/55 04/17/2024 8:51 AM [employer] Pulse 79 04/17/2024 8:51 AM [employer] Temperature 37.1 C (98.8 F) 04/17/2024 8:51 AM [employer] Respiratory Rate 18 04/17/2024 8:51 AM [employer] Oxygen Saturation 93% 04/17/2024 8:51 AM [employer] Inhaled Oxygen Concentration 50% 02/25/2023 1 0:00 AM [employer] Weight 71.7 kg (158 lb) 04/17/2024 8:51 AM [employer] Height 157.5 cm (5' 2.01 ) 02/27/2024 9:13 AM CS T Body Mass Index 28.89 02/27/2024 9:13 AM [employer] Medical Devices Implanted Type Area Transformation Architect Device Identifier Shelf Expiration Date Model / Serial / Lot Graft Tissue Matristem Micromatrix Prcn - [id number] Implanted:Qty: 1 on 08/31/2017 by Juan Ortez MD at [facility] Left: Arm [employer] 06/19/2019 [id number] / [id number] / [id number] Description:Left AC wound Graft Tissue Cytal 63v53ov Mesh Brn - [id number] Implanted:Qty: 1 on 08/31/2017 by Juan Ortez MD at [facility] Left: Arm [employer] 06/19/2019 [id number] / [id number] / [id number] Description:Left Ac Graft Tissue Matristem Micromatrix Prcn - [id number] Implanted:Qty: 1 on 12/22/2017 by Juan Ortez MD at [facility] Right: Hand [employer] 03/20/2019 [id number] / [id number] / [id number] Mtrx Tissue 5x5cm Cytal Mesh Brn - [id number] Implanted:Qty: 1 on 12/22/2017 by Juan Ortez MD at [facility] Right: Hand [employer] 10/19/2019 [id number] / [id number] / [id number] Mtrx Tissue 5x5cm Cytal Mesh Brn - [id number] Implanted:Qty: 1 on 05/25/2018 by Juan Ortez MD at [facility] Right: Hand [employer] 12/19/2019 [id number] / [id number] / [id number] Mtrx Tissue 5x5cm Cytal Mesh Brn Implanted:Qty: 1 on 08/02/2018 by Juan Ortez MD at [facility] Right: Hand [employer] 06/18/2020 [id number] / / Mtrx Tissue Micromatrix Prcn Bldr - [id number] Implanted:Qty: 1 on 01/03/2019 by Juan Ortez MD at [facility] Right: Hand [employer] 09/17/2020 [id number] / [id number] / [id number] Mtrx Tissue 5x5cm Cytal Prcn Bldr Brn - [id number] Implanted:Qty: 1 on 01/03/2019 by Juan Ortez MD at [facility] Right: Hand [employer] 06/18/2020 ORD4060 / [id number] / [id number] Mtrx Tissue 5x5cm Gentrix Prcn Urn Bldr - [id number] Implanted:Qty: 1 on 05/23/2019 by Juan Ortez MD at [facility] Right: Hand [employer] 01/18/2021 [id number] / [id number] / [id number] Mtrx Tissue 5x5cm Cytal Prcn Bldr Brn - [id number] Implanted:Qty: 1 on 05/23/2019 by Juan Ortez MD at [facility] Right: Hand [employer] 11/18/2020 EDQ3759 / [id number] / [id number] Mtrx Tissue Micromatrix Prcn Bldr - [id number] Implanted:Qty: 1 on 05/23/2019 by Juan Ortez MD at [facility] Right: Hand [employer] 01/18/2021 BG9477 / [id number] / [id number] Mtrx Tissue Micromatrix Prcn Bldr - [id number] Implanted:Qty: 1 on 09/12/2019 by Juan Ortez MD at [facility] Right: Hand [employer] 11/18/2020 DN8761 / [id number] / [id number] Mtrx Tissue 5x5cm Cytal Prcn Bldr Brn - [id number] Implanted:Qty: 1 on 09/12/2019 by Juan Ortez MD at [facility] Right: Hand [employer] 04/20/2021 [id number] / [id number] / [id number] Graft Bone Canc 4-9.5mm 15cc Frzdr Chp - [id number] Implanted:Qty: 1 on 04/07/2021 by Cristo Lewis MD at [facility] Right: Ankle [employer] 11/16/2024 [id number] / [id number] / Hydromark Breast Biopsy Site Marker Implanted:Qty: 1 on 11/01/2022 by Norma Carrasquillo MD at [facility] Left: Axilla [employer] [id number] 12/03/2024 4009-05-05-T1 / / [id number] Ultracor Twirl Breast Tissue Marker Implanted:Qty: 1 on 11/01/2022 by Norma Carrasquillo MD at [facility] Left: Breast [employer] [id number] 07/16/2025 [id number] / / Port Implinfn Powerport Clrvu Argd Shanae Implanted:Qty: 1 on 11/24/2022 at [facility] Right: Chest [employer] 12/19/2023 [id number] / / [id number] Description:RIJ inserted by Dr. Pool [facility]on Orth 3.5-4 Mm Penny Screw Nonster Implanted:Qty: 1 on 01/05/2023 by Patrick Burgos DO at [facility] Right: Knee [employer] [id number] / / Screw 4mm 5mm 80mm .5 Thrd Rvrs Cut Flut Implanted:Qty: 1 on 01/05/2023 by Patrick Burgos DO at [facility] Right: Knee [employer] [id number] / / Screw 3.5mm 5mm 75mm Ft Rvrs Cut Flut Implanted:Qty: 1 on 01/05/2023 by Patrick Burgos DO at [facility] Right: Knee [employer] [id number] / / Nail Im 13mm 34cm Ntr Nail Fem Rtrgd Ant Implanted:Qty: 1 on 01/05/2023 by Patrick Burgos DO at [facility] Right: Knee [employer] [id number] / / Pin Fx 355cm 3mm Fem Nonthread Rtrgd Ntr Implanted:Qty: 1 on 01/05/2023 by Patrick Burgos DO at [facility] Right: Knee [employer] [id number] / / Screw 6mm 3.5mm 85mm Ft Slf-Tap Fx Ang Implanted:Qty: 1 on 01/05/2023 by Patrick Burgos DO at [facility] Right: Knee [employer] [id number] / / Screw 6mm 3.5mm 85mm Ft Slf-Tap Fx Ang Implanted:Qty: 1 on 01/05/2023 by Patrick Burgos DO at [facility] Right: Knee [employer] [id number] / / Screw 6mm 3.5mm 75mm Ft Slf-Tap Fx Ang Implanted:Qty: 1 on 01/05/2023 by Patrick Burgos DO at [facility] Right: Knee [employer] [id number] / / Screw 5mm 3.5mm 40mm Ft Slf-Tap Fx Ang Implanted:Qty: 2 on 01/05/2023 by Patrick Burgos DO at [facility] Right: Knee [employer] [id number] / / Screw 4.5mm 34mm Ft Stef Nonster Bone Implanted:Qty: 2 on 01/05/2023 by Patrick Burgos DO at [facility] Right: Knee [employer] [id number] / / Explanted Type Area Transformation Architect Device Identifier Shelf Expiration Date Model / Serial / Lot 2.7 Locking Explanted:Qty: 1 on 04/07/2021 by Cristo Lewis MD at [facility] Right: Ankle [employer] [id number] / / Screw 3.5mm 12mm Slf-Tap Cortx Evos Strl Explanted:Qty: 1 on 04/07/2021 by Cristo Lewis MD at [facility] Right: Ankle [employer] [id number] / / 3.5 Cortical Explanted:Qty: 1 on 04/07/2021 by Cristo Lewis MD at [facility] Right: Ankle [employer] [id number] / / Screw 3.5mm 14mm Slf-Tap Lck Evos Strl Explanted:Qty: 1 on 04/07/2021 by Cristo Lewis MD at [facility] Right: Ankle [employer] [id number] / / 6 Hole Clamp Implanted:Qty: 1 on 03/25/2021 by Cristo Lewis MD at [facility] Explanted:Qty: 1 on 12/09/2021 by Cristo Lewis MD at [facility] Right: Ankle [employer] [id number] / / Clamp Extfix Jtx 10.5-4mm Mini Mr Sf Bar Implanted:Qty: 1 on 03/25/2021 by Cristo Lewis MD at [facility] Explanted:Qty: 1 on 12/09/2021 by Cristo Lewis MD at [facility] Right: Ankle [employer] [id number] / / 5x35 Pin Implanted:Qty: 2 on 03/25/2021 by Cristo Lewis MD at [facility] Explanted:Qty: 2 on 12/09/2021 by Cristo Lewis MD at [facility] Right: Ankle [id number] / / Pin Trc 50mm 5mm Jtx Lng Ti Ntrd Strl Implanted:Qty: 1 on 03/25/2021 by Cristo Lewis MD at [facility] Explanted:Qty: 1 on 12/09/2021 by Cristo Lewis MD at [facility] Right: Ankle [employer] [id number] / / 4x35 Pin Implanted:Qty: 1 on 03/25/2021 by Cristo Lewis MD at [facility] Explanted:Qty: 1 on 12/09/2021 by Cristo Lewis MD at [facility] Right: Ankle [id number] / / Bar Pin Implanted:Qty: 3 on 03/25/2021 by Cristo Lewis MD at [facility] Explanted:Qty: 3 on 12/09/2021 by Cristo Lewis MD at [facility] Right: Ankle [employer] [id number] / / Post Extfix Jtx 30d Nonster Implanted:Qty: 2 on 03/25/2021 by Cristo Lewis MD at [facility] Explanted:Qty: 2 on 12/09/2021 by Cristo Lewis MD at [facility] Right: Ankle [employer] [id number] / / 300 Bar Implanted:Qty: 2 on 03/25/2021 by Cristo Lewis MD at [facility] Explanted:Qty: 2 on 12/09/2021 by Cristo Lewis MD at [facility] Right: Ankle [employer] [id number] / / Clamp Extfix Jtx 10.5mm Bar To Bar Mr Sf Implanted:Qty: 2 on 03/25/2021 by Cristo Lewis MD at [facility] Explanted:Qty: 2 on 12/09/2021 by Cristo Lewis MD at [facility] Right: Ankle [employer] [id number] / / T Plate 27 Implanted:Qty: 1 on 04/07/2021 by Cristo Lewis MD at [facility] Explanted:Qty: 1 on 12/09/2021 by Cristo Lewis MD at [facility] Right: Ankle [employer] [id number] / / 2.7 Cortical Implanted:Qty: 1 on 04/07/2021 by Cristo Lewis MD at [facility] Explanted:Qty: 1 on 12/09/2021 by Cristo Lewis MD at [facility] Right: Ankle [employer] [id number] / / 2.7 Cortical Implanted:Qty: 1 on 04/07/2021 by Cristo Lewis MD at [facility] Explanted:Qty: 1 on 12/09/2021 by Cristo Lewis MD at [facility] Right: Ankle [employer] [id number] / / Screw 2.7mm 4.5mm 32mm T8 2mm Slf-Tap Implanted:Qty: 1 on 04/07/2021 by Cristo Lewis MD at [facility] Explanted:Qty: 1 on 12/09/2021 by Cristo Lewis MD at [facility] Right: Ankle [employer] [id number] / / 2.7 Locking Implanted:Qty: 2 on 04/07/2021 by Cristo Lewis MD at [facility] Explanted:Qty: 2 on 12/09/2021 by Cristo Lewis MD at [facility] Right: Ankle [employer] [id number] / / 2.7 Locking Implanted:Qty: 1 on 04/07/2021 by Cristo Lewis MD at [facility] Explanted:Qty: 1 on 12/09/2021 by Cristo Lewis MD at [facility] Right: Ankle [employer] [id number] / / Screw 3.5mm 12mm Slf-Tap Cortx Evos Strl Implanted:Qty: 1 on 04/07/2021 by Cristo Lewis MD at [facility] Explanted:Qty: 1 on 12/09/2021 by Cristo Lewis MD at [facility] Right: Ankle [employer] [id number] / / 3.5 9 Hole Implanted:Qty: 1 on 04/07/2021 by Cristo Lewis MD at [facility] Explanted:Qty: 1 on 12/09/2021 by Cristo Lewis MD at [facility] Right: Ankle [employer] [id number] / / 3.5 Locking Implanted:Qty: 1 on 04/07/2021 by Cristo Lewis MD at [facility] Explanted:Qty: 1 on 12/09/2021 by Cristo Lewis MD at [facility] Right: Ankle [employer] [id number] / / Screw 3.5mm 14mm Slf-Tap Lck Evos Strl Implanted:Qty: 2 on 04/07/2021 by Cristo Lewis MD at [facility] Explanted:Qty: 2 on 12/09/2021 by Cristo Lewis MD at [facility] Right: Ankle [employer] [id number] / / 3.5 Locking Implanted:Qty: 1 on 04/07/2021 by Cristo Lewis MD at [facility] Explanted:Qty: 1 on 12/09/2021 by Cristo Lewis MD at [facility] Right: Ankle [employer] [id number] / / 3.5 Locking Implanted:Qty: 1 on 04/07/2021 by Cristo Lewis MD at [facility] Explanted:Qty: 1 on 12/09/2021 by Cristo eLwis MD at [facility] Right: Ankle [employer] [id number] / / 3.5 Cortical Implanted:Qty: 1 on 04/07/2021 by Cristo Lewis MD at [facility] Explanted:Qty: 1 on 12/09/2021 by Cristo Lewis MD at [facility] Right: Ankle [employer] [id number] / / 3.5 Cortical Implanted:Qty: 1 on 04/07/2021 by Cristo Lewis MD at [facility] Explanted:Qty: 1 on 12/09/2021 by Cristo Lewis MD at [facility] Right: Ankle [employer] [id number] / / 1/3 Tubular Plate Implanted:Qty: 1 on 04/07/2021 by Cristo Lewis MD at [facility] Explanted:Qty: 1 on 12/09/2021 by Cristo Lewis MD at [facility] Right: Ankle [employer] [id number] / / 3.5 Cortical Implanted:Qty: 1 on 04/07/2021 by Cristo Lewis MD at [facility] Explanted:Qty: 1 on 12/09/2021 by Cristo Lewis MD at [facility] Right: Ankle [employer] [id number] / / Screw 4mm 40mm P/T Penny Hip Ss Strl Bone Implanted:Qty: 1 on 04/07/2021 by Cristo Lewis MD at [facility] Explanted:Qty: 1 on 12/09/2021 by Cristo Lewis MD at [facility] Right: Ankle [employer] [id number] / / 3.5 Cortical Implanted:Qty: 1 on 04/07/2021 by Cristo Lewis MD at [facility] Explanted:Qty: 1 on 12/09/2021 by Cristo Lewis MD at [facility] Right: Ankle [employer] [id number] / / 3.5 Locking Implanted:Qty: 2 on 04/07/2021 by Cristo Lewis MD at [facility] Explanted:Qty: 2 on 12/09/2021 by Cristo Lewis MD at [facility] Right: Ankle [employer] [id number] / / 2.7 Cortical Implanted:Qty: 1 on 04/07/2021 by Cristo Lewis MD at [facility] Explanted:Qty: 1 on 12/09/2021 by Cristo Lewis MD at [facility] Right: Ankle [employer] [id number] / / Wire K 1.6mm 150mm 1 End Troc Pnt Ss Sm Explanted:Qty: 1 on 01/05/2023 at [facility] Right: Knee [employer] [id number] / / Screw 4mm 5mm 85mm .5 Thrd Rvrs Cut Flut Explanted:Qty: 1 on 01/05/2023 by Patrick Burgos DO at [facility] Right: Knee [employer] [id number] / / 2.0 K-Wire Explanted:Qty: 1 on 01/05/2023 by Patrick Burgos DO at [facility] Right: Knee [id number] / / Screw 6mm 3.5mm 80mm Ft Slf-Tap Fx Ang Explanted:Qty: 1 on 01/05/2023 by Patrick Burgos DO at [facility] Right: Knee [employer] [id number] / / Wshr Orth Ss 3.5-4 Mm Penny Screw Nonster Explanted:Qty: 1 on 01/05/2023 by Patrick Burgos DO at [facility] Right: Knee [employer] [id number] / / Screw 5mm 3.5mm 45mm Ft Fx Ang Hex Head Explanted:Qty: 1 on 01/05/2023 by Patrick Burgos DO at [facility] Right: Knee [employer] [id number] / / Procedures * PLATELET COUNT AUTO CITRATED BLOOD(Performed 04/17/2024) * TSH(Performed 04/17/2024) Performed for Malignant neoplasm of upper-outer quadrant of left breast in female, estrogen receptor negative (HCC) * COMPREHENSIVE METABOLIC PANEL(Performed 04/17/2024) Performed for Malignant neoplasm of upper-outer quadrant of left breast in female, estrogen receptor negative (HCC) * CBC W AUTO DIFFERENTIAL(Performed 04/17/2024) Performed for Malignant neoplasm of upper-outer quadrant of left breast in female, estrogen receptor negative (HCC) * TSH(Performed 04/09/2024) Performed for Malignant neoplasm of upper-outer quadrant of left breast in female, estrogen receptor negative (HCC) * COMPREHENSIVE METABOLIC PANEL(Performed 04/09/2024) Performed for Malignant neoplasm of upper-outer quadrant of left breast in female, estrogen receptor negative (HCC) * CBC W AUTO DIFFERENTIAL(Performed 04/09/2024) Performed for Malignant neoplasm of upper-outer quadrant of left breast in female, estrogen receptor negative (HCC) * TSH(Performed 03/19/2024) Performed for Malignant neoplasm of upper-outer quadrant of left breast in female, estrogen receptor negative (HCC) * COMPREHENSIVE METABOLIC PANEL(Performed 03/19/2024) Performed for Malignant neoplasm of upper-outer quadrant of left breast in female, estrogen receptor negative (HCC) * CBC W AUTO DIFFERENTIAL(Performed 03/19/2024) Performed for Malignant neoplasm of upper-outer quadrant of left breast in female, estrogen receptor negative (HCC) * TSH(Performed 02/27/2024) Performed for Malignant neoplasm of upper-outer quadrant of left breast in female, estrogen receptor negative (HCC) * COMPREHENSIVE METABOLIC PANEL(Performed 02/27/2024) Performed for Malignant neoplasm of upper-outer quadrant of left breast in female, estrogen receptor negative (HCC) * CBC W AUTO DIFFERENTIAL(Performed 02/27/2024) Performed for Malignant neoplasm of upper-outer quadrant of left breast in female, estrogen receptor negative (HCC) * TSH(Performed 02/07/2024) Performed for Malignant neoplasm of upper-outer quadrant of left breast in female, estrogen receptor negative (HCC) * COMPREHENSIVE METABOLIC PANEL(Performed 02/07/2024) Performed for Malignant neoplasm of upper-outer quadrant of left breast in female, estrogen receptor negative (HCC) * CBC W AUTO DIFFERENTIAL(Performed 02/07/2024) Performed for Malignant neoplasm of upper-outer quadrant of left breast in female, estrogen receptor negative (HCC) * MAMMO BILAT DIAGNOSTIC W CHARLES(Performed 02/07/2024) Performed for Malignant neoplasm of upper-outer quadrant of left breast in female, estrogen receptor negative (HCC) * TSH(Performed 01/09/2024) Performed for Malignant neoplasm of upper-outer quadrant of left breast in female, estrogen receptor negative (HCC) * COMPREHENSIVE METABOLIC PANEL(Performed 01/09/2024) Performed for Malignant neoplasm of upper-outer quadrant of left breast in female, estrogen receptor negative (HCC) * CBC W AUTO DIFFERENTIAL(Performed 01/09/2024) Performed for Malignant neoplasm of upper-outer quadrant of left breast in female, estrogen receptor negative (HCC) * TSH(Performed 12/19/2023) Performed for Malignant neoplasm of upper-outer quadrant of left breast in female, estrogen receptor negative (HCC) * COMPREHENSIVE METABOLIC PANEL(Performed 12/19/2023) Performed for Malignant neoplasm of upper-outer quadrant of left breast in female, estrogen receptor negative (HCC) * CBC W AUTO DIFFERENTIAL(Performed 12/19/2023) Performed for Malignant neoplasm of upper-outer quadrant of left breast in female, estrogen receptor negative (HCC) * IMAGING/RADIOLOGY/XRAY RESULTS ORDER(Performed 12/02/2023) * IMAGING/RADIOLOGY/XRAY RESULTS ORDER(Performed 12/02/2023) * GLUCOSE - POINT OF CARE(Performed 11/19/2023) * GLUCOSE - POINT OF CARE(Performed 11/18/2023) * GLUCOSE - POINT OF CARE(Performed 11/18/2023) * GLUCOSE - POINT OF CARE(Performed 11/18/2023) * GLUCOSE - POINT OF CARE(Performed 11/18/2023) * CBC W/O DIFFERENTIAL(Performed 11/18/2023) * MAGNESIUM BLOOD(Performed 11/18/2023) Performed for Acute pain of right knee * PHOSPHORUS BLOOD(Performed 11/18/2023) Performed for Acute pain of right knee * BASIC METABOLIC PANEL (CALCIUM TOTAL)(Performed 11/18/2023) Performed for Acute pain of right knee * PREPARE RBC LEUKOREDUCED UNIT(Performed 11/18/2023) * GLUCOSE - POINT OF CARE(Performed 11/17/2023) * GLUCOSE - POINT OF CARE(Performed 11/17/2023) * GLUCOSE - POINT OF CARE(Performed 11/17/2023) * GLUCOSE - POINT OF CARE(Performed 11/17/2023) * CBC W/O DIFFERENTIAL(Performed 11/17/2023) * MAGNESIUM BLOOD(Performed 11/17/2023) Performed for Acute pain of right knee * PHOSPHORUS BLOOD(Performed 11/17/2023) Performed for Acute pain of right knee * BASIC METABOLIC PANEL (CALCIUM TOTAL)(Performed 11/17/2023) Performed for Acute pain of right knee * GLUCOSE - POINT OF CARE(Performed 11/17/2023) * GLUCOSE - POINT OF CARE(Performed 11/16/2023) * GLUCOSE - POINT OF CARE(Performed 11/16/2023) * GLUCOSE - POINT OF CARE(Performed 11/16/2023) * GLUCOSE - POINT OF CARE(Performed 11/16/2023) * MAGNESIUM BLOOD(Performed 11/16/2023) Performed for Acute pain of right knee * PHOSPHORUS BLOOD(Performed 11/16/2023) Performed for Acute pain of right knee * BASIC METABOLIC PANEL (CALCIUM TOTAL)(Performed 11/16/2023) Performed for Acute pain of right knee * GLUCOSE - POINT OF CARE(Performed 11/15/2023) * GLUCOSE - POINT OF CARE(Performed 11/15/2023) * GLUCOSE - POINT OF CARE(Performed 11/15/2023) * MAGNESIUM BLOOD(Performed 11/15/2023) Performed for Acute pain of right knee * PHOSPHORUS BLOOD(Performed 11/15/2023) Performed for Acute pain of right knee * BASIC METABOLIC PANEL (CALCIUM TOTAL)(Performed 11/15/2023) Performed for Acute pain of right knee * GLUCOSE - POINT OF CARE(Performed 11/15/2023) * GLUCOSE - POINT OF CARE(Performed 11/14/2023) * PT EVAL AND TREAT(Performed 11/14/2023) * OT EVAL AND TREAT(Performed 11/14/2023) * GLUCOSE - POINT OF CARE(Performed 11/14/2023) * CULTURE WOUND+GRAM STAIN(Performed 11/14/2023) * CULTURE ANAEROBE(Performed 11/14/2023) * PT EVAL AND TREAT(Performed 11/14/2023) * OT EVAL AND TREAT(Performed 11/14/2023) * GLUCOSE - POINT OF CARE(Performed 11/14/2023) * LARYNGEAL MASK AIRWAY(Performed 11/14/2023) * IL DEBRIDE SKIN AT FX SITE(Performed 11/14/2023) Performed for Wound of right lower extremity, initial encounter * GLUCOSE - POINT OF CARE(Performed 11/14/2023) * EKG 12-LEAD(Performed 11/14/2023) Performed for Atrial fibrillation, unspecified type (HCC) * GLUCOSE - POINT OF CARE(Performed 11/14/2023) * ANTIBODY IDENTIFICATION(Performed 11/14/2023) * NICOLE DIRECT(Performed 11/14/2023) * TYPE + SCREEN PANEL(Performed 11/14/2023) * GLUCOSE - POINT OF CARE(Performed 11/14/2023) * MAGNESIUM BLOOD(Performed 11/14/2023) Performed for Acute pain of right knee * PHOSPHORUS BLOOD(Performed 11/14/2023) Performed for Acute pain of right knee * BASIC METABOLIC PANEL (CALCIUM TOTAL)(Performed 11/14/2023) Performed for Acute pain of right knee * GLUCOSE - POINT OF CARE(Performed 11/13/2023) * GLUCOSE - POINT OF CARE(Performed 11/13/2023) * GLUCOSE - POINT OF CARE(Performed 11/13/2023) * GLUCOSE - POINT OF CARE(Performed 11/13/2023) * MAGNESIUM BLOOD(Performed 11/13/2023) Performed for Acute pain of right knee * PHOSPHORUS BLOOD(Performed 11/13/2023) Performed for Acute pain of right knee * BASIC METABOLIC PANEL (CALCIUM TOTAL)(Performed 11/13/2023) Performed for Acute pain of right knee * GLUCOSE - POINT OF CARE(Performed 11/12/2023) * GLUCOSE - POINT OF CARE(Performed 11/12/2023) * GLUCOSE - POINT OF CARE(Performed 11/12/2023) * GLUCOSE - POINT OF CARE(Performed 11/12/2023) * MAGNESIUM BLOOD(Performed 11/12/2023) Performed for Acute pain of right knee * PHOSPHORUS BLOOD(Performed 11/12/2023) Performed for Acute pain of right knee * BASIC METABOLIC PANEL (CALCIUM TOTAL)(Performed 11/12/2023) Performed for Acute pain of right knee * PREPARE RBC LEUKOREDUCED UNIT(Performed 11/12/2023) * GLUCOSE - POINT OF CARE(Performed 11/11/2023) * GLUCOSE - POINT OF CARE(Performed 11/11/2023) * GLUCOSE - POINT OF CARE(Performed 11/11/2023) * MAGNESIUM BLOOD(Performed 11/11/2023) Performed for Acute pain of right knee * PHOSPHORUS BLOOD(Performed 11/11/2023) Performed for Acute pain of right knee * BASIC METABOLIC PANEL (CALCIUM TOTAL)(Performed 11/11/2023) Performed for Acute pain of right knee * VAS RIGHT VENOUS DUPLEX LE(Performed 11/11/2023) Performed for Cellulitis of right lower extremity * GLUCOSE - POINT OF CARE(Performed 11/11/2023) * GLUCOSE - POINT OF CARE(Performed 11/10/2023) * GLUCOSE - POINT OF CARE(Performed 11/10/2023) * GLUCOSE - POINT OF CARE(Performed 11/10/2023) * HEPATITIS B SURFACE ANTIGEN W RFLX CONFIRMATION(Performed 11/10/2023) * HEPATITIS B SURFACE ANTIBODY(Performed 11/10/2023) * HEPATITIS B CORE ANTIBODY TOTAL(Performed 11/10/2023) * HEPATITIS C AB SCREEN RFLX NAAT QUANT(Performed 11/10/2023) * MAGNESIUM BLOOD(Performed 11/10/2023) Performed for Acute pain of right knee * BASIC METABOLIC PANEL (CALCIUM TOTAL)(Performed 11/10/2023) Performed for Acute pain of right knee * PHOSPHORUS BLOOD(Performed 11/10/2023) Performed for Acute pain of right knee * GLUCOSE - POINT OF CARE(Performed 11/10/2023) * C DIFFICILE GDH AG + TOXIN A+B(Performed 11/10/2023) Performed for Cellulitis of right lower extremity * GLUCOSE - POINT OF CARE(Performed 11/09/2023) * GLUCOSE - POINT OF CARE(Performed 11/09/2023) * PT-INR [facility](Performed 11/09/2023) Performed for Acute pain of right knee * PTT [facility](Performed 11/09/2023) Performed for Acute pain of right knee * ERYTHROCYTE SEDIMENTATION RATE(Performed 11/09/2023) Performed for Acute pain of right knee * HEMOGLOBIN A1C(Performed 11/09/2023) Performed for Acute pain of right knee * MAGNESIUM BLOOD(Performed 11/09/2023) Performed for Acute pain of right knee * PHOSPHORUS BLOOD(Performed 11/09/2023) Performed for Acute pain of right knee * CBC W/O DIFFERENTIAL(Performed 11/09/2023) Performed for Acute pain of right knee * BASIC METABOLIC PANEL (CALCIUM TOTAL)(Performed 11/09/2023) Performed for Acute pain of right knee * GLUCOSE - POINT OF CARE(Performed 11/09/2023) * PT EVAL AND TREAT ORTHO/TRAUMA(Performed 11/09/2023) * OT EVAL AND TREAT(Performed 11/09/2023) * CULTURE BLOOD(Performed 11/08/2023) Performed for Acute pain of right knee * CULTURE BLOOD(Performed 11/08/2023) Performed for Acute pain of right knee * GLUCOSE - POINT OF CARE(Performed 11/08/2023) * ANTIBODY IDENTIFICATION(Performed 11/08/2023) * NICOLE DIRECT(Performed 11/08/2023) * TYPE + SCREEN PANEL(Performed 11/08/2023) * XR CHEST 2VW(Performed 11/08/2023) Performed for Acute pain of right knee, Chills * CULTURE WOUND+GRAM STAIN(Performed 11/08/2023) * XR KNEE RIGHT 3VW(Performed 11/08/2023) Performed for Acute pain of right knee * C-REACTIVE PROTEIN(Performed 11/08/2023) * ERYTHROCYTE SEDIMENTATION RATE(Performed 11/08/2023) * CBC W AUTO DIFFERENTIAL(Performed 11/08/2023) * COMPREHENSIVE METABOLIC PANEL(Performed 11/08/2023) * CENTRAL LINE NOTE(Performed 10/27/2023) * XR CHEST 1VW PORTABLE(Performed 10/27/2023) Performed for Open knee wound, right, sequela * GLUCOSE - POINT OF CARE(Performed 10/27/2023) * CULTURE WOUND+GRAM STAIN(Performed 10/27/2023) Performed for Open knee wound, right, sequela * CULTURE ANAEROBE(Performed 10/27/2023) Performed for Open knee wound, right, sequela * ENDOTRACHEAL TUBE NOTE(Performed 10/27/2023) * IL DEBRIDE SKIN AT FX SITE(Performed 10/27/2023) Performed for Wound, open, knee, lower leg, or ankle with complication, right, initial encounter * GLUCOSE - POINT OF CARE(Performed 10/27/2023) * TSH(Performed 10/25/2023) Performed for Malignant neoplasm of upper-outer quadrant of left breast in female, estrogen receptor negative (HCC) * COMPREHENSIVE METABOLIC PANEL(Performed 10/25/2023) Performed for Malignant neoplasm of upper-outer quadrant of left breast in female, estrogen receptor negative (HCC) * CBC W AUTO DIFFERENTIAL(Performed 10/25/2023) Performed for Malignant neoplasm of upper-outer quadrant of left breast in female, estrogen receptor negative (HCC) * GLUCOSE - POINT OF CARE(Performed 10/10/2023) * FL GO SURGERY(Performed 10/10/2023) Performed for Pre-op evaluation, Other closed fracture of distal end of right femur, initial encounter ([facility]) * ENDOTRACHEAL TUBE NOTE(Performed 10/10/2023) * IL REMOVAL DEEP IMPLANT(Performed 10/10/2023) Performed for Closed fracture of distal end of right femur, unspecified fracture morphology, initial encounter ([facility]) * NICOLE DIRECT(Performed 10/10/2023) Performed for Pre-op evaluation * ANTIBODY IDENTIFICATION(Performed 10/10/2023) Performed for Pre-op evaluation * TYPE + SCREEN PANEL(Performed 10/10/2023) Performed for Pre-op evaluation * GLUCOSE - POINT OF CARE(Performed 10/10/2023) * TSH(Performed 10/04/2023) Performed for Malignant neoplasm of upper-outer quadrant of left breast in female, estrogen receptor negative (HCC) * COMPREHENSIVE METABOLIC PANEL(Performed 10/04/2023) Performed for Malignant neoplasm of upper-outer quadrant of left breast in female, estrogen receptor negative (HCC) * CBC W AUTO DIFFERENTIAL(Performed 10/04/2023) Performed for Malignant neoplasm of upper-outer quadrant of left breast in female, estrogen receptor negative (HCC) * XR FEMUR RIGHT 2VW(Performed 09/27/2023) Performed for Other closed fracture of distal end of right femur with routine healing, subsequent encounter * RAD ONC ARIA SESSION SUMMARY(Performed 09/23/2023) * RAD ONC ARIA SESSION SUMMARY(Performed 09/21/2023) * RAD ONC ARIA SESSION SUMMARY(Performed 09/20/2023) * RAD ONC ARIA SESSION SUMMARY(Performed 09/19/2023) * RAD ONC ARIA SESSION SUMMARY(Performed 09/16/2023) * RAD ONC ARIA SESSION SUMMARY(Performed 09/15/2023) * RAD ONC ARIA SESSION SUMMARY(Performed 09/13/2023) * RAD ONC ARIA SESSION SUMMARY(Performed 09/09/2023) * RAD ONC ARIA SESSION SUMMARY(Performed 09/08/2023) * RAD ONC ARIA SESSION SUMMARY(Performed 09/07/2023) * TSH(Performed 09/07/2023) Performed for Malignant neoplasm of upper-outer quadrant of left breast in female, estrogen receptor negative (HCC) * COMPREHENSIVE METABOLIC PANEL(Performed 09/07/2023) Performed for Malignant neoplasm of upper-outer quadrant of left breast in female, estrogen receptor negative (HCC) * CBC W AUTO DIFFERENTIAL(Performed 09/07/2023) Performed for Malignant neoplasm of upper-outer quadrant of left breast in female, estrogen receptor negative (HCC) * RAD ONC ARIA SESSION SUMMARY(Performed 09/05/2023) * RAD ONC ARIA SESSION SUMMARY(Performed 09/02/2023) * RAD ONC ARIA SESSION SUMMARY(Performed 09/01/2023) * RAD ONC ARIA SESSION SUMMARY(Performed 08/31/2023) * RAD ONC ARIA SESSION SUMMARY(Performed 08/30/2023) * XR FEMUR RIGHT 2VW(Performed 07/26/2023) Performed for Other closed fracture of distal end of right femur with routine healing, subsequent encounter * GLUCOSE - POINT OF CARE(Performed 07/23/2023) * GLUCOSE - POINT OF CARE(Performed 07/22/2023) * GLUCOSE - POINT OF CARE(Performed 07/22/2023) * GLUCOSE - POINT OF CARE(Performed 07/22/2023) * PATHOLOGY TISSUE(Performed 07/22/2023) Performed for History of left breast cancer * GLUCOSE - POINT OF CARE(Performed 07/22/2023) * ENDOTRACHEAL TUBE NOTE(Performed 07/22/2023) * PERIPHERAL IV NOTE(Performed 07/22/2023) * PERIPHERAL IV NOTE(Performed 07/22/2023) * IL BX/REMV,LYMPH NODE,DEEP AXILL(Performed 07/22/2023) Performed for History of left breast cancer * IL MASTECTOMY, PARTIAL(Performed 07/22/2023) Performed for History of left breast cancer * PERIPHERAL BLOCK(Performed 07/22/2023) * GLUCOSE - POINT OF CARE(Performed 07/22/2023) * NM SENTINEL NODE INJECTION(Performed 07/22/2023) Performed for Malignant neoplasm of upper-outer quadrant of left breast in female, estrogen receptor negative (HCC) * GLUCOSE - POINT OF CARE(Performed 07/22/2023) * NICOLE DIRECT(Performed 07/22/2023) * ANTIBODY IDENTIFICATION(Performed 07/22/2023) * TYPE + SCREEN PANEL(Performed 07/22/2023) * MAMMO BREAST LEFT SPECIMEN(Performed 07/22/2023) Performed for Malignant neoplasm of upper-outer quadrant of left breast in female, estrogen receptor negative (HCC) * MAMMO BREAST LEFT SPECIMEN(Performed 07/22/2023) Performed for Malignant neoplasm of upper-outer quadrant of left breast in female, estrogen receptor negative (HCC) * US SOFT TISSUE DEVICE PLACMNT(Performed 07/18/2023) Performed for Malignant neoplasm of upper-outer quadrant of left breast in female, estrogen receptor negative (HCC) * US BREAST LEFT NEEDLE LOC(Performed 07/18/2023) Performed for Malignant neoplasm of upper-outer quadrant of left breast in female, estrogen receptor negative (HCC) * MAMMO LEFT POST CLIP OR WIRE W CHARLES(Performed 07/18/2023) Performed for Malignant neoplasm of upper-outer quadrant of left breast in female, estrogen receptor negative (HCC) * US BREAST LEFT LTD(Performed 07/07/2023) Performed for Malignant neoplasm of upper-outer quadrant of left breast in female, estrogen receptor negative (HCC) * MAMMO LEFT DIAGNOSTIC W CHARLES(Performed 07/07/2023) Performed for Malignant neoplasm of upper-outer quadrant of left breast in female, estrogen receptor negative (HCC) * GLUCOSE - POINT OF CARE(Performed 06/08/2023) * GLUCOSE - POINT OF CARE(Performed 06/08/2023) * URINE MICROSCOPIC ONLY REFLEX TO CULTURE(Performed 06/08/2023) * URINALYSIS REFLEX MICROSCOPIC REFLEX CULTURE(Performed 06/08/2023) * CULTURE URINE(Performed 06/08/2023) * GLUCOSE - POINT OF CARE(Performed 06/08/2023) * RENAL FUNCTION PANEL(Performed 06/08/2023) * CBC W AUTO DIFFERENTIAL(Performed 06/08/2023) * GLUCOSE - POINT OF CARE(Performed 06/07/2023) * GLUCOSE - POINT OF CARE(Performed 06/07/2023) * GLUCOSE - POINT OF CARE(Performed 06/07/2023) * RENAL FUNCTION PANEL(Performed 06/07/2023) * GLUCOSE - POINT OF CARE(Performed 06/07/2023) * VANCOMYCIN LEVEL RANDOM(Performed 06/07/2023) * CBC W AUTO DIFFERENTIAL(Performed 06/07/2023) * GLUCOSE - POINT OF CARE(Performed 06/06/2023) * MRSA DNA PCR(Performed 06/06/2023) * GLUCOSE - POINT OF CARE(Performed 06/06/2023) * GLUCOSE - POINT OF CARE(Performed 06/06/2023) * VAS BILATERAL VENOUS DUPLEX LE(Performed 06/06/2023) Performed for Foot pain, right * PHOSPHORUS BLOOD(Performed 06/06/2023) Performed for OK (acute kidney injury) ([facility]) * MAGNESIUM BLOOD(Performed 06/06/2023) Performed for OK (acute kidney injury) ([facility]) * COMPREHENSIVE METABOLIC PANEL(Performed 06/06/2023) Performed for KO (acute kidney injury) ([facility]) * CBC W AUTO DIFFERENTIAL(Performed 06/06/2023) Performed for OK (acute kidney injury) ([facility]) * GLUCOSE - POINT OF CARE(Performed 06/06/2023) * VANCOMYCIN LEVEL TROUGH(Performed 06/06/2023) * GLUCOSE - POINT OF CARE(Performed 06/05/2023) * GLUCOSE - POINT OF CARE(Performed 06/05/2023) * CT ANKLE RIGHT W CONTRAST(Performed 06/05/2023) Performed for Cellulitis of right lower extremity * CT FOOT RIGHT W CONTRAST(Performed 06/05/2023) Performed for Cellulitis of right lower extremity * VANCOMYCIN LEVEL PEAK(Performed 06/05/2023) * XR FOOT RIGHT 3VW OR MORE(Performed 06/05/2023) Performed for Foot pain, right * XR TIBIA FIBULA RIGHT 2VW(Performed 06/05/2023) Performed for Foot pain, right * C-REACTIVE PROTEIN(Performed 06/05/2023) * ERYTHROCYTE SEDIMENTATION RATE(Performed 06/05/2023) * COMPREHENSIVE METABOLIC PANEL(Performed 06/05/2023) * CBC W AUTO DIFFERENTIAL(Performed 06/05/2023) * IR CENTRAL LINE REMOVAL(Performed 05/25/2023) Performed for Infection of venous access port, initial encounter * GLUCOSE - POINT OF CARE(Performed 05/25/2023) * XR FEMUR RIGHT 2VW(Performed 05/24/2023) Performed for Other closed fracture of distal end of right femur with routine healing, subsequent encounter * HEMOGLOBIN A1C - POINT OF CARE (AMB) [facility](Performed 05/04/2023) Performed for Type 2 diabetes mellitus with hyperosmolarity without coma, with long-term current use of insulin (HCC) * TSH REFLEX FREE T4(Performed 04/22/2023) Performed for Malignant neoplasm of upper-outer quadrant of left breast in female, estrogen receptor negative (HCC) * COMPREHENSIVE METABOLIC PANEL(Performed 04/22/2023) Performed for Malignant neoplasm of upper-outer quadrant of left breast in female, estrogen receptor negative (HCC) * CBC W AUTO DIFFERENTIAL(Performed 04/22/2023) Performed for Malignant neoplasm of upper-outer quadrant of left breast in female, estrogen receptor negative (HCC) * XR FEMUR RIGHT 2VW(Performed 04/12/2023) Performed for Other closed fracture of distal end of right femur with routine healing, subsequent encounter * GLUCOSE - POINT OF CARE(Performed 03/12/2023) * GLUCOSE - POINT OF CARE(Performed 03/12/2023) * GLUCOSE - POINT OF CARE(Performed 03/12/2023) * GLUCOSE - POINT OF CARE(Performed 03/11/2023) * GLUCOSE - POINT OF CARE(Performed 03/11/2023) * MAGNESIUM BLOOD(Performed 03/11/2023) * VANCOMYCIN LEVEL TROUGH(Performed 03/11/2023) * GLUCOSE - POINT OF CARE(Performed 03/11/2023) * GLUCOSE - POINT OF CARE(Performed 03/11/2023) * MAGNESIUM BLOOD(Performed 03/11/2023) * CBC W AUTO DIFFERENTIAL(Performed 03/11/2023) * BASIC METABOLIC PANEL (CALCIUM TOTAL)(Performed 03/11/2023) * VANCOMYCIN LEVEL PEAK(Performed 03/10/2023) * GLUCOSE - POINT OF CARE(Performed 03/10/2023) * GLUCOSE - POINT OF CARE(Performed 03/10/2023) * GLUCOSE - POINT OF CARE(Performed 03/10/2023) * GLUCOSE - POINT OF CARE(Performed 03/10/2023) * GLUCOSE - POINT OF CARE(Performed 03/09/2023) * GLUCOSE - POINT OF CARE(Performed 03/09/2023) * GLUCOSE - POINT OF CARE(Performed 03/09/2023) * XR FEMUR RIGHT 2VW(Performed 03/09/2023) Performed for Trauma * GLUCOSE - POINT OF CARE(Performed 03/09/2023) * CBC W AUTO DIFFERENTIAL(Performed 03/09/2023) * MAGNESIUM BLOOD(Performed 03/09/2023) * BASIC METABOLIC PANEL (CALCIUM TOTAL)(Performed 03/09/2023) * GLUCOSE - POINT OF CARE(Performed 03/08/2023) * GLUCOSE - POINT OF CARE(Performed 03/08/2023) * CULTURE WOUND+GRAM STAIN(Performed 03/08/2023) * GLUCOSE - POINT OF CARE(Performed 03/08/2023) * GLUCOSE - POINT OF CARE(Performed 03/08/2023) * GLUCOSE - POINT OF CARE(Performed 03/07/2023) * VANCOMYCIN LEVEL TROUGH(Performed 03/07/2023) * GLUCOSE - POINT OF CARE(Performed 03/07/2023) * VAS BILATERAL VENOUS DUPLEX LE(Performed 03/07/2023) Performed for Cellulitis of lower extremity, unspecified laterality * VAS ARTERIAL ANKLE ARM INDEX(Performed 03/07/2023) Performed for Cellulitis of lower extremity, unspecified laterality * CT FOOT RIGHT W CONTRAST(Performed 03/07/2023) Performed for Cellulitis of lower extremity, unspecified laterality, Cellulitis, unspecified cellulitis site * CT TIBIA FIBULA RIGHT W CONT(Performed 03/07/2023) Performed for Cellulitis of lower extremity, unspecified laterality, Cellulitis, unspecified cellulitis site * GLUCOSE - POINT OF CARE(Performed 03/07/2023) * MAGNESIUM BLOOD(Performed 03/07/2023) * CBC W AUTO DIFFERENTIAL(Performed 03/07/2023) * BASIC METABOLIC PANEL (CALCIUM TOTAL)(Performed 03/07/2023) * GLUCOSE - POINT OF CARE(Performed 03/06/2023) * GLUCOSE - POINT OF CARE(Performed 03/06/2023) * GLUCOSE - POINT OF CARE(Performed 03/06/2023) * GLUCOSE - POINT OF CARE(Performed 03/06/2023) * GLUCOSE - POINT OF CARE(Performed 03/06/2023) * GLUCOSE - POINT OF CARE(Performed 03/05/2023) * GLUCOSE - POINT OF CARE(Performed 03/05/2023) * GLUCOSE - POINT OF CARE(Performed 03/05/2023) * C-REACTIVE PROTEIN(Performed 03/05/2023) * ERYTHROCYTE SEDIMENTATION RATE(Performed 03/05/2023) * CBC W/O DIFFERENTIAL(Performed 03/05/2023) * MAGNESIUM BLOOD(Performed 03/05/2023) * BASIC METABOLIC PANEL (CALCIUM TOTAL)(Performed 03/05/2023) * GLUCOSE - POINT OF CARE(Performed 03/05/2023) * GLUCOSE - POINT OF CARE(Performed 03/04/2023) * GLUCOSE - POINT OF CARE(Performed 03/04/2023) * GLUCOSE - POINT OF CARE(Performed 03/04/2023) * GLUCOSE - POINT OF CARE(Performed 03/04/2023) * GLUCOSE - POINT OF CARE(Performed 03/04/2023) * VANCOMYCIN LEVEL TROUGH(Performed 03/04/2023) * GLUCOSE - POINT OF CARE(Performed 03/04/2023) * GLUCOSE - POINT OF CARE(Performed 03/04/2023) * CBC W/O DIFFERENTIAL(Performed 03/04/2023) * MAGNESIUM BLOOD(Performed 03/04/2023) * BASIC METABOLIC PANEL (CALCIUM TOTAL)(Performed 03/04/2023) * GLUCOSE - POINT OF CARE(Performed 03/03/2023) * GLUCOSE - POINT OF CARE(Performed 03/03/2023) * CBC W/O DIFFERENTIAL(Performed 03/03/2023) * GLUCOSE - POINT OF CARE(Performed 03/03/2023) * GLUCOSE - POINT OF CARE(Performed 03/03/2023) * CBC W/O DIFFERENTIAL(Performed 03/03/2023) * MAGNESIUM BLOOD(Performed 03/03/2023) * BASIC METABOLIC PANEL (CALCIUM TOTAL)(Performed 03/03/2023) * GLUCOSE - POINT OF CARE(Performed 03/02/2023) * GLUCOSE - POINT OF CARE(Performed 03/02/2023) * GLUCOSE - POINT OF CARE(Performed 03/02/2023) * GLUCOSE - POINT OF CARE(Performed 03/02/2023) * CBC W/O DIFFERENTIAL(Performed 03/02/2023) * MAGNESIUM BLOOD(Performed 03/02/2023) * BASIC METABOLIC PANEL (CALCIUM TOTAL)(Performed 03/02/2023) * GLUCOSE - POINT OF CARE(Performed 03/01/2023) * GLUCOSE - POINT OF CARE(Performed 03/01/2023) * GLUCOSE - POINT OF CARE(Performed 03/01/2023) * GLUCOSE - POINT OF CARE(Performed 03/01/2023) * GLUCOSE - POINT OF CARE(Performed 03/01/2023) * CBC W/O DIFFERENTIAL(Performed 03/01/2023) * MAGNESIUM BLOOD(Performed 03/01/2023) * BASIC METABOLIC PANEL (CALCIUM TOTAL)(Performed 03/01/2023) * GLUCOSE - POINT OF CARE(Performed 02/28/2023) * GLUCOSE - POINT OF CARE(Performed 02/28/2023) * GLUCOSE - POINT OF CARE(Performed 02/28/2023) * FL SWALLOWING FUNCTION STUDY(Performed 02/28/2023) Performed for Dysphagia, unspecified type * GLUCOSE - POINT OF CARE(Performed 02/28/2023) * PT-INR [facility](Performed 02/28/2023) * PTT [facility](Performed 02/28/2023) * CBC W AUTO DIFFERENTIAL(Performed 02/28/2023) * MAGNESIUM BLOOD(Performed 02/28/2023) * BASIC METABOLIC PANEL (CALCIUM TOTAL)(Performed 02/28/2023) * GLUCOSE - POINT OF CARE(Performed 02/28/2023) * GLUCOSE - POINT OF CARE(Performed 02/27/2023) * GLUCOSE - POINT OF CARE(Performed 02/27/2023) * DIFFERENTIAL MANUAL(Performed 02/27/2023) * PTT [facility](Performed 02/27/2023) * CBC W AUTO DIFFERENTIAL(Performed 02/27/2023) * MAGNESIUM BLOOD(Performed 02/27/2023) * BASIC METABOLIC PANEL (CALCIUM TOTAL)(Performed 02/27/2023) * PT-INR [facility](Performed 02/27/2023) * GLUCOSE - POINT OF CARE(Performed 02/26/2023) * GLUCOSE - POINT OF CARE(Performed 02/26/2023) * GLUCOSE - POINT OF CARE(Performed 02/26/2023) * PTT [facility](Performed 02/26/2023) * CBC W AUTO DIFFERENTIAL(Performed 02/26/2023) * MAGNESIUM BLOOD(Performed 02/26/2023) * BASIC METABOLIC PANEL (CALCIUM TOTAL)(Performed 02/26/2023) * PT-INR [facility](Performed 02/26/2023) * GLUCOSE - POINT OF CARE(Performed 02/25/2023) * GLUCOSE - POINT OF CARE(Performed 02/25/2023) * GLUCOSE - POINT OF CARE(Performed 02/25/2023) * GLUCOSE - POINT OF CARE(Performed 02/25/2023) * PT EVAL AND TREAT(Performed 02/25/2023) * CBC W/O DIFFERENTIAL(Performed 02/25/2023) * PTT [facility](Performed 02/25/2023) * GLUCOSE - POINT OF CARE(Performed 02/25/2023) * GLUCOSE - POINT OF CARE(Performed 02/25/2023) * MAGNESIUM BLOOD(Performed 02/25/2023) * BASIC METABOLIC PANEL (CALCIUM TOTAL)(Performed 02/25/2023) * PT-INR [facility](Performed 02/25/2023) * XR ABDOMEN KUB PORTABLE(Performed 02/24/2023) Performed for Acute encephalopathy * TRANSFUSE RED BLOOD CELL LEUKOREDUCED UNIT(S)(Performed 02/24/2023) * PREPARE RBC LEUKOREDUCED UNIT(Performed 02/24/2023) * GLUCOSE - POINT OF CARE(Performed 02/24/2023) * GLUCOSE - POINT OF CARE(Performed 02/24/2023) * ANTIBODY IDENTIFICATION(Performed 02/24/2023) * NICOLE DIRECT(Performed 02/24/2023) * TYPE + SCREEN PANEL(Performed 02/24/2023) * GLUCOSE - POINT OF CARE(Performed 02/24/2023) * GLUCOSE - POINT OF CARE(Performed 02/24/2023) * GLUCOSE - POINT OF CARE(Performed 02/24/2023) * MAGNESIUM BLOOD(Performed 02/24/2023) * BASIC METABOLIC PANEL (CALCIUM TOTAL)(Performed 02/24/2023) * PT-INR [facility](Performed 02/24/2023) * CBC W AUTO DIFFERENTIAL(Performed 02/24/2023) * TRIGLYCERIDES BLOOD(Performed 02/24/2023) * GLUCOSE - POINT OF CARE(Performed 02/24/2023) * PTT [facility](Performed 02/23/2023) * XR FEMUR RIGHT 2VW(Performed 02/23/2023) Performed for Cellulitis, unspecified cellulitis site * XR ANKLE RIGHT 3VW OR MORE(Performed 02/23/2023) Performed for Cellulitis, unspecified cellulitis site * GLUCOSE - POINT OF CARE(Performed 02/23/2023) * C-REACTIVE PROTEIN(Performed 02/23/2023) * ERYTHROCYTE SEDIMENTATION RATE(Performed 02/23/2023) * GLUCOSE - POINT OF CARE(Performed 02/23/2023) * PTT [facility](Performed 02/23/2023) * TRIGLYCERIDES BLOOD(Performed 02/23/2023) * CT TIBIA FIBULA RIGHT W CONT(Performed 02/23/2023) Performed for Cellulitis of lower extremity, unspecified laterality * CT FOOT RIGHT W CONTRAST(Performed 02/23/2023) Performed for Cellulitis of lower extremity, unspecified laterality * PHOSPHORUS BLOOD(Performed 02/23/2023) * MAGNESIUM BLOOD(Performed 02/23/2023) * BASIC METABOLIC PANEL (CALCIUM TOTAL)(Performed 02/23/2023) * PT-INR [facility](Performed 02/23/2023) * CBC W AUTO DIFFERENTIAL(Performed 02/23/2023) * PTT [facility](Performed 02/23/2023) * GLUCOSE - POINT OF CARE(Performed 02/23/2023) * GLUCOSE - POINT OF CARE(Performed 02/23/2023) * GLUCOSE - POINT OF CARE(Performed 02/22/2023) * PTT [facility](Performed 02/22/2023) * MRSA DNA PCR(Performed 02/22/2023) * CULTURE SPUTUM+GRAM STAIN(Performed 02/22/2023) * GLUCOSE - POINT OF CARE(Performed 02/22/2023) * EKG 12-LEAD(Performed 02/22/2023) Performed for Atrial fibrillation, unspecified type (HCC) * CULTURE BLOOD(Performed 02/22/2023) * XR TIBIA FIBULA RIGHT 2VW(Performed 02/22/2023) Performed for Other chronic osteomyelitis of right ankle (HCC) * XR FOOT RIGHT 2VW(Performed 02/22/2023) Performed for Osteomyelitis of ankle, right, acute (HCC) * XR CHEST 1VW PORTABLE(Performed 02/22/2023) Performed for Acute respiratory failure with hypoxia (HCC) * XR ABDOMEN KUB PORTABLE(Performed 02/22/2023) Performed for Abdominal distension * CULTURE BLOOD(Performed 02/22/2023) * URINE MICROSCOPIC ONLY REFLEX TO CULTURE(Performed 02/22/2023) * URINALYSIS REFLEX MICROSCOPIC REFLEX CULTURE(Performed 02/22/2023) * CULTURE URINE(Performed 02/22/2023) * VANCOMYCIN LEVEL RANDOM(Performed 02/22/2023) * PT-INR [facility](Performed 02/22/2023) * LACTIC ACID BLOOD(Performed 02/22/2023) * PHOSPHORUS BLOOD(Performed 02/22/2023) * PTT [facility](Performed 02/22/2023) * PT-INR [facility](Performed 02/22/2023) * MAGNESIUM BLOOD(Performed 02/22/2023) * COMPREHENSIVE METABOLIC PANEL(Performed 02/22/2023) * CBC W AUTO DIFFERENTIAL(Performed 02/22/2023) * BLOOD GASES ART + COOX PANEL(Performed 02/22/2023) * TSH REFLEX FREE T4(Performed 02/15/2023) Performed for Malignant neoplasm of upper-outer quadrant of left breast in female, estrogen receptor negative (HCC) * COMPREHENSIVE METABOLIC PANEL(Performed 02/15/2023) Performed for Malignant neoplasm of upper-outer quadrant of left breast in female, estrogen receptor negative (HCC) * CBC W AUTO DIFFERENTIAL(Performed 02/15/2023) Performed for Malignant neoplasm of upper-outer quadrant of left breast in female, estrogen receptor negative (HCC) * TRANSFUSE RED BLOOD CELL LEUKOREDUCED UNIT(S)(Performed 02/08/2023) * PREPARE RBC LEUKOREDUCED UNIT(Performed 02/08/2023) * ANTIBODY IDENTIFICATION(Performed 02/08/2023) * NICOLE DIRECT(Performed 02/08/2023) * TYPE + SCREEN PANEL(Performed 02/08/2023) * DIFFERENTIAL MANUAL(Performed 02/08/2023) Performed for Malignant neoplasm of upper-outer quadrant of left breast in female, estrogen receptor negative (HCC) * TSH REFLEX FREE T4(Performed 02/08/2023) Performed for Malignant neoplasm of upper-outer quadrant of left breast in female, estrogen receptor negative (HCC) * COMPREHENSIVE METABOLIC PANEL(Performed 02/08/2023) Performed for Malignant neoplasm of upper-outer quadrant of left breast in female, estrogen receptor negative (HCC) * CBC W AUTO DIFFERENTIAL(Performed 02/08/2023) Performed for Malignant neoplasm of upper-outer quadrant of left breast in female, estrogen receptor negative (HCC) * TSH REFLEX FREE T4(Performed 02/01/2023) Performed for Malignant neoplasm of upper-outer quadrant of left breast in female, estrogen receptor negative (HCC) * COMPREHENSIVE METABOLIC PANEL(Performed 02/01/2023) Performed for Malignant neoplasm of upper-outer quadrant of left breast in female, estrogen receptor negative (HCC) * CBC W AUTO DIFFERENTIAL(Performed 02/01/2023) Performed for Malignant neoplasm of upper-outer quadrant of left breast in female, estrogen receptor negative (HCC) * TSH REFLEX FREE T4(Performed 01/25/2023) Performed for Malignant neoplasm of upper-outer quadrant of left breast in female, estrogen receptor negative (HCC) * COMPREHENSIVE METABOLIC PANEL(Performed 01/25/2023) Performed for Malignant neoplasm of upper-outer quadrant of left breast in female, estrogen receptor negative (HCC) * CBC W AUTO DIFFERENTIAL(Performed 01/25/2023) Performed for Malignant neoplasm of upper-outer quadrant of left breast in female, estrogen receptor negative (HCC) * APHERESIS/TRANSFUSION ORDER(Performed 01/24/2023) * XR FEMUR RIGHT 2VW(Performed 01/18/2023) Performed for Other closed fracture of distal end of right femur, initial encounter ([facility]) * PREPARE RBC LEUKOREDUCED UNIT(Performed 01/13/2023) * XR FEMUR RIGHT 2VW(Performed 01/12/2023) Performed for Other closed fracture of distal end of right femur, initial encounter ([facility]) * GLUCOSE - POINT OF CARE(Performed 01/12/2023) * GLUCOSE - POINT OF CARE(Performed 01/12/2023) * GLUCOSE - POINT OF CARE(Performed 01/12/2023) * PHOSPHORUS BLOOD(Performed 01/12/2023) * MAGNESIUM BLOOD(Performed 01/12/2023) * BASIC METABOLIC PANEL (CALCIUM TOTAL)(Performed 01/12/2023) * CBC W/O DIFFERENTIAL(Performed 01/12/2023) * GLUCOSE - POINT OF CARE(Performed 01/11/2023) * GLUCOSE - POINT OF CARE(Performed 01/11/2023) * TRANSFUSE RED BLOOD CELL LEUKOREDUCED UNIT(S)(Performed 01/11/2023) * PREPARE RBC LEUKOREDUCED UNIT(Performed 01/11/2023) * GLUCOSE - POINT OF CARE(Performed 01/11/2023) * GLUCOSE - POINT OF CARE(Performed 01/11/2023) * NICOLE DIRECT(Performed 01/11/2023) * ANTIBODY IDENTIFICATION(Performed 01/11/2023) * TYPE + SCREEN PANEL(Performed 01/11/2023) * GLUCOSE - POINT OF CARE(Performed 01/11/2023) * PHOSPHORUS BLOOD(Performed 01/11/2023) * MAGNESIUM BLOOD(Performed 01/11/2023) * BASIC METABOLIC PANEL (CALCIUM TOTAL)(Performed 01/11/2023) * CBC W/O DIFFERENTIAL(Performed 01/11/2023) * GLUCOSE - POINT OF CARE(Performed 01/11/2023) * GLUCOSE - POINT OF CARE(Performed 01/10/2023) * GLUCOSE - POINT OF CARE(Performed 01/10/2023) * GLUCOSE - POINT OF CARE(Performed 01/10/2023) * GLUCOSE - POINT OF CARE(Performed 01/10/2023) * PHOSPHORUS BLOOD(Performed 01/10/2023) * MAGNESIUM BLOOD(Performed 01/10/2023) * BASIC METABOLIC PANEL (CALCIUM TOTAL)(Performed 01/10/2023) * CBC W/O DIFFERENTIAL(Performed 01/10/2023) * GLUCOSE - POINT OF CARE(Performed 01/10/2023) * GLUCOSE - POINT OF CARE(Performed 01/09/2023) * GLUCOSE - POINT OF CARE(Performed 01/09/2023) * GLUCOSE - POINT OF CARE(Performed 01/09/2023) * GLUCOSE - POINT OF CARE(Performed 01/09/2023) * GLUCOSE - POINT OF CARE(Performed 01/09/2023) * EKG 12-LEAD(Performed 01/09/2023) Performed for Atrial fibrillation with rapid ventricular response (HCC) * PHOSPHORUS BLOOD(Performed 01/09/2023) * MAGNESIUM BLOOD(Performed 01/09/2023) * BASIC METABOLIC PANEL (CALCIUM TOTAL)(Performed 01/09/2023) * CBC W/O DIFFERENTIAL(Performed 01/09/2023) * GLUCOSE - POINT OF CARE(Performed 01/09/2023) * GLUCOSE - POINT OF CARE(Performed 01/08/2023) * GLUCOSE - POINT OF CARE(Performed 01/08/2023) * GLUCOSE - POINT OF CARE(Performed 01/08/2023) * GLUCOSE - POINT OF CARE(Performed 01/08/2023) * PHOSPHORUS BLOOD(Performed 01/08/2023) * MAGNESIUM BLOOD(Performed 01/08/2023) * BASIC METABOLIC PANEL (CALCIUM TOTAL)(Performed 01/08/2023) * CBC W/O DIFFERENTIAL(Performed 01/08/2023) * PREPARE RBC LEUKOREDUCED UNIT(Performed 01/08/2023) * PREPARE RBC LEUKOREDUCED UNIT(Performed 01/08/2023) * PREPARE RBC LEUKOREDUCED UNIT(Performed 01/08/2023) * PREPARE RBC LEUKOREDUCED UNIT(Performed 01/08/2023) Performed for Other closed fracture of distal end of right femur, initial encounter (HCC) * PREPARE RBC LEUKOREDUCED UNIT(Performed 01/08/2023) * GLUCOSE - POINT OF CARE(Performed 01/07/2023) * GLUCOSE - POINT OF CARE(Performed 01/07/2023) * GLUCOSE - POINT OF CARE(Performed 01/07/2023) * GLUCOSE - POINT OF CARE(Performed 01/07/2023) * PHOSPHORUS BLOOD(Performed 01/07/2023) * MAGNESIUM BLOOD(Performed 01/07/2023) * BASIC METABOLIC PANEL (CALCIUM TOTAL)(Performed 01/07/2023) * CBC W/O DIFFERENTIAL(Performed 01/07/2023) * GLUCOSE - POINT OF CARE(Performed 01/06/2023) * GLUCOSE - POINT OF CARE(Performed 01/06/2023) * CARDIAC EKG ORDER(Performed 01/06/2023) * GLUCOSE - POINT OF CARE(Performed 01/06/2023) * CBC W/O DIFFERENTIAL(Performed 01/06/2023) * TRANSFUSE PLATELET PHERESIS UNIT(S)(Performed 01/06/2023) * PREPARE PLATELET PHERESIS UNIT(S)(Performed 01/06/2023) Performed for Other closed fracture of distal end of right femur, initial encounter (HCC) * GLUCOSE - POINT OF CARE(Performed 01/06/2023) * PREPARE PLATELET PHERESIS UNIT(S)(Performed 01/06/2023) * TRANSFUSE RED BLOOD CELL LEUKOREDUCED UNIT(S)(Performed 01/06/2023) * PREPARE RBC LEUKOREDUCED UNIT(Performed 01/06/2023) * GLUCOSE - POINT OF CARE(Performed 01/06/2023) * PHOSPHORUS BLOOD(Performed 01/06/2023) * MAGNESIUM BLOOD(Performed 01/06/2023) * BASIC METABOLIC PANEL (CALCIUM TOTAL)(Performed 01/06/2023) * CBC W/O DIFFERENTIAL(Performed 01/06/2023) * GLUCOSE - POINT OF CARE(Performed 01/06/2023) * GLUCOSE - POINT OF CARE(Performed 01/05/2023) * CBC W AUTO DIFFERENTIAL(Performed 01/05/2023) * GLUCOSE - POINT OF CARE(Performed 01/05/2023) * XR KNEE RIGHT 2VW OR LESS(Performed 01/05/2023) Performed for Other closed fracture of distal end of right femur, initial encounter ([facility]) * XR FEMUR RIGHT 2VW(Performed 01/05/2023) Performed for Other closed fracture of distal end of right femur, initial encounter ([facility]) * GLUCOSE - POINT OF CARE(Performed 01/05/2023) * FL GO SURGERY(Performed 01/05/2023) Performed for Other closed fracture of distal end of right femur, initial encounter ([facility]) * IL OPEN RX FEMUR FX+INTRAMED PATTY(Performed 01/05/2023) Performed for Closed fracture of distal end of right femur, unspecified fracture morphology, initial encounter ([facility]) * IL OPEN RX FEMUR FX+PLATE/SCREW(Performed 01/05/2023) Performed for Closed fracture of distal end of right femur, unspecified fracture morphology, initial encounter ([facility]) * ENDOTRACHEAL TUBE NOTE(Performed 01/05/2023) * GLUCOSE - POINT OF CARE(Performed 01/05/2023) * VITAMIN D 25-HYDROXY(Performed 01/05/2023) * HEMOGLOBIN A1C(Performed 01/05/2023) * PT-INR [facility](Performed 01/05/2023) * PHOSPHORUS BLOOD(Performed 01/05/2023) * MAGNESIUM BLOOD(Performed 01/05/2023) * BASIC METABOLIC PANEL (CALCIUM TOTAL)(Performed 01/05/2023) * CBC W/O DIFFERENTIAL(Performed 01/05/2023) * GLUCOSE - POINT OF CARE(Performed 01/04/2023) * EKG 12-LEAD(Performed 01/04/2023) Performed for Trauma * XR TIBIA FIBULA RIGHT 2VW(Performed 01/04/2023) Performed for Trauma * CT THORACIC SPINE WO CONTRAST(Performed 01/04/2023) Performed for Trauma * CT LUMBAR SPINE WO CONTRAST(Performed 01/04/2023) Performed for Trauma * CT CERVICAL SPINE WO CONTRAST(Performed 01/04/2023) Performed for Trauma * CT FEMUR RIGHT WO CONTRAST(Performed 01/04/2023) Performed for Trauma * CT HEAD WO CONTRAST(Performed 01/04/2023) Performed for Trauma * CT CHEST ABDOMEN PELVIS W CONT(Performed 01/04/2023) Performed for Trauma * VITAMIN D 25-HYDROXY(Performed 01/04/2023) Performed for Trauma, Other closed fracture of distal end of right femur, initial encounter ([facility]) * COMPREHENSIVE METABOLIC PANEL(Performed 01/04/2023) * TEG 6 GLOBAL HEMOSTASIS W/ LYSIS(Performed 01/04/2023) * TEG 6S PLATELET MAPPING(Performed 01/04/2023) * XR KNEE RIGHT 3VW(Performed 01/04/2023) Performed for Trauma * URINALYSIS REFLEX MICROSCOPIC REFLEX CULTURE(Performed 01/04/2023) * URINE DRUG SCREEN IMMUNOASSAY(Performed 01/04/2023) * ANTIBODY IDENTIFICATION(Performed 01/04/2023) * NICOLE DIRECT(Performed 01/04/2023) * TYPE + SCREEN PANEL(Performed 01/04/2023) * PTT [facility](Performed 01/04/2023) * PT-INR [facility](Performed 01/04/2023) * CBC W AUTO DIFFERENTIAL(Performed 01/04/2023) * ALCOHOL ETHYL BLOOD(Performed 01/04/2023) * XR FEMUR RIGHT 2VW(Performed 01/04/2023) Performed for Trauma * XR CHEST 1VW PORTABLE(Performed 01/04/2023) Performed for Trauma * XR PELVIS 1 OR 2VW(Performed 01/04/2023) Performed for Trauma * TSH REFLEX FREE T4(Performed 01/03/2023) Performed for Malignant neoplasm of upper-outer quadrant of left breast in female, estrogen receptor negative (HCC) * COMPREHENSIVE METABOLIC PANEL(Performed 01/03/2023) Performed for Malignant neoplasm of upper-outer quadrant of left breast in female, estrogen receptor negative (HCC) * CBC W AUTO DIFFERENTIAL(Performed 01/03/2023) Performed for Malignant neoplasm of upper-outer quadrant of left breast in female, estrogen receptor negative (HCC) * TSH REFLEX FREE T4(Performed 12/27/2022) Performed for Malignant neoplasm of upper-outer quadrant of left breast in female, estrogen receptor negative (HCC) * COMPREHENSIVE METABOLIC PANEL(Performed 12/27/2022) Performed for Malignant neoplasm of upper-outer quadrant of left breast in female, estrogen receptor negative (HCC) * CBC W AUTO DIFFERENTIAL(Performed 12/27/2022) Performed for Malignant neoplasm of upper-outer quadrant of left breast in female, estrogen receptor negative (HCC) * TSH REFLEX FREE T4(Performed 12/20/2022) Performed for Malignant neoplasm of upper-outer quadrant of left breast in female, estrogen receptor negative (HCC) * COMPREHENSIVE METABOLIC PANEL(Performed 12/20/2022) Performed for Malignant neoplasm of upper-outer quadrant of left breast in female, estrogen receptor negative (HCC) * CBC W AUTO DIFFERENTIAL(Performed 12/20/2022) Performed for Malignant neoplasm of upper-outer quadrant of left breast in female, estrogen receptor negative (HCC) * GLUCOSE - POINT OF CARE(Performed 12/19/2022) * GLUCOSE - POINT OF CARE(Performed 12/19/2022) * GLUCOSE - POINT OF CARE(Performed 12/19/2022) * CBC W AUTO DIFFERENTIAL(Performed 12/19/2022) Performed for Hyperglycemia * BASIC METABOLIC PANEL (CALCIUM TOTAL)(Performed 12/19/2022) Performed for Hyperglycemia * GLUCOSE - POINT OF CARE(Performed 12/18/2022) * GLUCOSE - POINT OF CARE(Performed 12/18/2022) * GLUCOSE - POINT OF CARE(Performed 12/18/2022) * GLUCOSE - POINT OF CARE(Performed 12/18/2022) * GLUCOSE - POINT OF CARE(Performed 12/18/2022) * GLUCOSE - POINT OF CARE(Performed 12/18/2022) * CBC W AUTO DIFFERENTIAL(Performed 12/18/2022) Performed for Hyperglycemia * PHOSPHORUS BLOOD(Performed 12/18/2022) Performed for Hyperglycemia * MAGNESIUM BLOOD(Performed 12/18/2022) Performed for Hyperglycemia * BASIC METABOLIC PANEL (CALCIUM TOTAL)(Performed 12/18/2022) Performed for Hyperglycemia * HEMOGLOBIN A1C(Performed 12/18/2022) Performed for Hyperglycemia * URINALYSIS REFLEX MICROSCOPIC REFLEX CULTURE(Performed 12/18/2022) * GLUCOSE - POINT OF CARE(Performed 12/17/2022) * GLUCOSE - POINT OF CARE(Performed 12/17/2022) * XR CHEST 1VW PORTABLE(Performed 12/17/2022) Performed for Nausea and vomiting, unspecified vomiting type * BLOOD GASES DANIELE + COOX PANEL(Performed 12/17/2022) * SARS-COV-2 (COVID-19)+INFLU A+B PCR RAPID(Performed 12/17/2022) Performed for Hyperglycemia * HYDROXYBUTYRATE BETA(Performed 12/17/2022) * COMPREHENSIVE METABOLIC PANEL(Performed 12/17/2022) * CBC W AUTO DIFFERENTIAL(Performed 12/17/2022) * GLUCOSE - POINT OF CARE(Performed 12/17/2022) * GLUCOSE(Performed 12/13/2022) * TSH REFLEX FREE T4(Performed 12/13/2022) * COMPREHENSIVE METABOLIC PANEL(Performed 12/13/2022) * CBC W AUTO DIFFERENTIAL(Performed 12/13/2022) * TSH REFLEX FREE T4(Performed 12/06/2022) Performed for Malignant neoplasm of upper-outer quadrant of left breast in female, estrogen receptor negative (HCC) * COMPREHENSIVE METABOLIC PANEL(Performed 12/06/2022) Performed for Malignant neoplasm of upper-outer quadrant of left breast in female, estrogen receptor negative (HCC) * CBC W AUTO DIFFERENTIAL(Performed 12/06/2022) Performed for Malignant neoplasm of upper-outer quadrant of left breast in female, estrogen receptor negative (HCC) * TSH REFLEX FREE T4(Performed 11/29/2022) Performed for Malignant neoplasm of upper-outer quadrant of left breast in female, estrogen receptor negative (HCC) * COMPREHENSIVE METABOLIC PANEL(Performed 11/29/2022) Performed for Malignant neoplasm of upper-outer quadrant of left breast in female, estrogen receptor negative (HCC) * CBC W AUTO DIFFERENTIAL(Performed 11/29/2022) Performed for Malignant neoplasm of upper-outer quadrant of left breast in female, estrogen receptor negative (HCC) * ECHO COMPLETE W CONTRAST(Performed 11/26/2022) Performed for Malignant neoplasm of upper-outer quadrant of left breast in female, estrogen receptor negative (HCC) * PATHOLOGY TISSUE(Performed 11/25/2022) Performed for Malignant neoplasm of upper-outer quadrant of left breast in female, estrogen receptor negative (HCC), Rash * PET CT SKULL TO MID THIGH(Performed 11/25/2022) Performed for Malignant neoplasm of upper-outer quadrant of left breast in female, estrogen receptor negative (HCC) * GLUCOSE SCREEN - POCT (IP) [facility](Performed 11/25/2022) * IR AGUEDA CATH INSERT(Performed 11/24/2022) Performed for Malignant neoplasm of upper-outer quadrant of left breast in female, estrogen receptor negative (HCC) * GLUCOSE - POINT OF CARE(Performed 11/24/2022) * TEMPUS XT(Performed 11/11/2022) Performed for Malignant neoplasm of left breast in female, estrogen receptor negative, unspecified site of breast (HCC) * MAMMO LEFT POST CLIP OR WIRE W CHARLES(Performed 11/01/2022) Performed for Abnormal mammogram * US BREAST LEFT BIOPSY(Performed 11/01/2022) Performed for Abnormal mammogram * US AXILLA LEFT BIOPSY(Performed 11/01/2022) Performed for Abnormal mammogram * PATHOLOGY TISSUE(Performed 11/01/2022) Performed for Abnormal mammogram * PATHOLOGY TISSUE(Performed 11/01/2022) Performed for Abnormal mammogram * US BREAST LEFT COMPLETE(Performed 10/29/2022) Performed for Mass of left breast, unspecified quadrant * MAMMO BILAT DIAGNOSTIC W CHARLES(Performed 10/29/2022) Performed for Mass of left breast, unspecified quadrant * NICOTINE + METABOLITES URINE(Performed 10/05/2022) Performed for History of tobacco use disorder * NICOTINE + METABOLITES URINE(Performed 09/13/2022) Performed for History of tobacco use disorder * NICOTINE + METABOLITES URINE(Performed 08/23/2022) Performed for Narcotic-induced mood disorder (HCC) * C-REACTIVE PROTEIN(Performed 06/21/2022) Performed for Wound of right ankle, sequela, History of osteomyelitis of ankle * ERYTHROCYTE SEDIMENTATION RATE(Performed 06/21/2022) Performed for Wound of right ankle, sequela, History of osteomyelitis of ankle * CBC W AUTO DIFFERENTIAL(Performed 06/21/2022) Performed for Wound of right ankle, sequela, History of osteomyelitis of ankle * PREPARE RBC LEUKOREDUCED UNIT(Performed 06/05/2022) * NICOTINE + METABOLITES BLOOD(Performed 06/04/2022) Performed for 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) * HEMOGLOBIN A1C(Performed 06/04/2022) Performed for 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) * ERYTHROCYTE SEDIMENTATION RATE(Performed 06/04/2022) Performed for 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) * C-REACTIVE PROTEIN(Performed 06/04/2022) Performed for 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) * GLUCOSE - POINT OF CARE(Performed 06/04/2022) * ANTIBODY IDENTIFICATION(Performed 06/04/2022) Performed for Osteomyelitis of ankle, right, acute (HCC) * NICOLE DIRECT(Performed 06/04/2022) Performed for Osteomyelitis of ankle, right, acute (HCC) * TYPE + SCREEN PANEL(Performed 06/04/2022) Performed for Osteomyelitis of ankle, right, acute (HCC) * BASIC METABOLIC PANEL (CALCIUM TOTAL)(Performed 06/04/2022) Performed for Osteomyelitis of ankle, right, acute (HCC) * CT ANGIO LOWER EXTREMITY RIGHT(Performed 06/04/2022) Performed for Wound of right ankle, initial encounter * CREATININE - POCT INTERFACED(Performed 06/04/2022) * XR ANKLE RIGHT 3VW OR MORE(Performed 05/03/2022) Performed for Osteomyelitis of ankle, right, acute (HCC), Closed displaced trimalleolar fracture ofright ankle with delayed healing, subsequent encounter, Postoperative wound infection, Closed displaced trimalleolar fracture of right ankle with nonunion * LAB RESULTS ORDER(Performed 03/24/2022) * LAB RESULTS ORDER(Performed 03/24/2022) * LAB RESULTS ORDER(Performed 03/11/2022) * GLUCOSE - POINT OF CARE(Performed 02/23/2022) * GLUCOSE - POINT OF CARE(Performed 02/22/2022) * GLUCOSE - POINT OF CARE(Performed 02/22/2022) * GLUCOSE - POINT OF CARE(Performed 02/22/2022) * GLUCOSE - POINT OF CARE(Performed 02/22/2022) * RENAL FUNCTION PANEL(Performed 02/22/2022) * MAGNESIUM BLOOD(Performed 02/22/2022) * CBC W/O DIFFERENTIAL(Performed 02/22/2022) * GLUCOSE - POINT OF CARE(Performed 02/21/2022) * GLUCOSE - POINT OF CARE(Performed 02/21/2022) * GLUCOSE - POINT OF CARE(Performed 02/21/2022) * GLUCOSE - POINT OF CARE(Performed 02/21/2022) * GLUCOSE - POINT OF CARE(Performed 02/20/2022) * GLUCOSE - POINT OF CARE(Performed 02/20/2022) * GLUCOSE - POINT OF CARE(Performed 02/20/2022) * GLUCOSE - POINT OF CARE(Performed 02/20/2022) * RENAL FUNCTION PANEL(Performed 02/20/2022) * CBC W/O DIFFERENTIAL(Performed 02/20/2022) * MAGNESIUM BLOOD(Performed 02/20/2022) * GLUCOSE - POINT OF CARE(Performed 02/19/2022) * GLUCOSE - POINT OF CARE(Performed 02/19/2022) * GLUCOSE - POINT OF CARE(Performed 02/19/2022) * IR PICC LINE INSERT(Performed 02/19/2022) Performed for Osteomyelitis of ankle, right, acute (HCC) * GLUCOSE - POINT OF CARE(Performed 02/19/2022) * RENAL FUNCTION PANEL(Performed 02/19/2022) * CBC W/O DIFFERENTIAL(Performed 02/19/2022) * MAGNESIUM BLOOD(Performed 02/19/2022) * GLUCOSE - POINT OF CARE(Performed 02/18/2022) * GLUCOSE - POINT OF CARE(Performed 02/18/2022) * GLUCOSE - POINT OF CARE(Performed 02/18/2022) * GLUCOSE - POINT OF CARE(Performed 02/18/2022) * HIV-1 HIV-2 ANTIBODY + HIV P24 AG PANEL(Performed 02/18/2022) * RENAL FUNCTION PANEL(Performed 02/18/2022) * CBC W/O DIFFERENTIAL(Performed 02/18/2022) * MAGNESIUM BLOOD(Performed 02/18/2022) * GLUCOSE - POINT OF CARE(Performed 02/17/2022) * SARS-COV-2 (COVID-19)+INFLU A+B PCR RAPID(Performed 02/17/2022) Performed for Osteomyelitis of ankle, right, acute (HCC) * GLUCOSE - POINT OF CARE(Performed 02/17/2022) * GLUCOSE - POINT OF CARE(Performed 02/17/2022) * RENAL FUNCTION PANEL(Performed 02/17/2022) * CBC W/O DIFFERENTIAL(Performed 02/17/2022) * MAGNESIUM BLOOD(Performed 02/17/2022) * GLUCOSE - POINT OF CARE(Performed 02/16/2022) * GLUCOSE - POINT OF CARE(Performed 02/16/2022) * CT TIBIA FIBULA RIGHT W CONT(Performed 02/16/2022) Performed for Osteomyelitis of ankle, right, acute (HCC) * GLUCOSE - POINT OF CARE(Performed 02/16/2022) * PT EVAL AND TREAT(Performed 02/16/2022) * OT EVAL AND TREAT(Performed 02/16/2022) * GLUCOSE - POINT OF CARE(Performed 02/16/2022) * MRI TIBIA FIBULA RIGHT WWO CONT(Performed 02/16/2022) Performed for Osteomyelitis of ankle, right, acute (HCC) * RENAL FUNCTION PANEL(Performed 02/16/2022) * CBC W/O DIFFERENTIAL(Performed 02/16/2022) * MAGNESIUM BLOOD(Performed 02/16/2022) * CULTURE BLOOD(Performed 02/16/2022) * CULTURE BLOOD(Performed 02/16/2022) * HEMOGLOBIN A1C(Performed 02/15/2022) * PREALBUMIN(Performed 02/15/2022) * C-REACTIVE PROTEIN(Performed 02/15/2022) * ERYTHROCYTE SEDIMENTATION RATE(Performed 02/15/2022) * COMPREHENSIVE METABOLIC PANEL(Performed 02/15/2022) * CBC W AUTO DIFFERENTIAL(Performed 02/15/2022) * XR ANKLE RIGHT 3VW OR MORE(Performed 02/15/2022) Performed for Closed displaced trimalleolar fracture of right ankle with delayed healing, subsequent encounter * XR ANKLE RIGHT 3VW OR MORE(Performed 01/25/2022) Performed for Closed fracture of right ankle, sequela * CARDIAC RHYTHM STRIP ORDER(Performed 12/26/2021) * CARDIAC EKG ORDER(Performed 12/25/2021) * GLUCOSE - POINT OF CARE(Performed 12/24/2021) * GLUCOSE - POINT OF CARE(Performed 12/24/2021) * MAGNESIUM BLOOD(Performed 12/24/2021) * BASIC METABOLIC PANEL (CALCIUM TOTAL)(Performed 12/24/2021) * CBC W/O DIFFERENTIAL(Performed 12/24/2021) * C-REACTIVE PROTEIN(Performed 12/24/2021) * GLUCOSE - POINT OF CARE(Performed 12/23/2021) * GLUCOSE - POINT OF CARE(Performed 12/23/2021) * GLUCOSE - POINT OF CARE(Performed 12/23/2021) * GLUCOSE - POINT OF CARE(Performed 12/23/2021) * VITAMIN D 25-HYDROXY(Performed 12/23/2021) * MAGNESIUM BLOOD(Performed 12/23/2021) * BASIC METABOLIC PANEL (CALCIUM TOTAL)(Performed 12/23/2021) * CBC W/O DIFFERENTIAL(Performed 12/23/2021) * GLUCOSE - POINT OF CARE(Performed 12/22/2021) * GLUCOSE - POINT OF CARE(Performed 12/22/2021) * GLUCOSE - POINT OF CARE(Performed 12/22/2021) * GLUCOSE - POINT OF CARE(Performed 12/22/2021) * MAGNESIUM BLOOD(Performed 12/22/2021) * BASIC METABOLIC PANEL (CALCIUM TOTAL)(Performed 12/22/2021) * CBC W/O DIFFERENTIAL(Performed 12/22/2021) * C-REACTIVE PROTEIN(Performed 12/22/2021) * GLUCOSE - POINT OF CARE(Performed 12/21/2021) * GLUCOSE - POINT OF CARE(Performed 12/21/2021) * GLUCOSE - POINT OF CARE(Performed 12/21/2021) * GLUCOSE - POINT OF CARE(Performed 12/21/2021) * MAGNESIUM BLOOD(Performed 12/21/2021) * BASIC METABOLIC PANEL (CALCIUM TOTAL)(Performed 12/21/2021) * CBC W/O DIFFERENTIAL(Performed 12/21/2021) * GLUCOSE - POINT OF CARE(Performed 12/20/2021) * GLUCOSE - POINT OF CARE(Performed 12/20/2021) * ECHOCARDIOGRAM 2D WITH DOPPLER(Performed 12/20/2021) Performed for Atrial fibrillation with rapid ventricular response (HCC) * GLUCOSE - POINT OF CARE(Performed 12/20/2021) * GLUCOSE - POINT OF CARE(Performed 12/20/2021) * GLUCOSE - POINT OF CARE(Performed 12/20/2021) * BASIC METABOLIC PANEL (CALCIUM TOTAL)(Performed 12/20/2021) * CBC W/O DIFFERENTIAL(Performed 12/20/2021) * GLUCOSE - POINT OF CARE(Performed 12/19/2021) * GLUCOSE - POINT OF CARE(Performed 12/19/2021) * GLUCOSE - POINT OF CARE(Performed 12/19/2021) * GLUCOSE - POINT OF CARE(Performed 12/19/2021) * BASIC METABOLIC PANEL (CALCIUM TOTAL)(Performed 12/19/2021) * CBC W/O DIFFERENTIAL(Performed 12/19/2021) * C-REACTIVE PROTEIN(Performed 12/19/2021) * GLUCOSE - POINT OF CARE(Performed 12/18/2021) * GLUCOSE - POINT OF CARE(Performed 12/18/2021) * B-TYPE NATRIURETIC PEPTIDE(Performed 12/18/2021) * XR CHEST 1VW PORTABLE(Performed 12/18/2021) Performed for SOB (shortness of breath) * VAS RIGHT VENOUS DUPLEX LE(Performed 12/18/2021) Performed for Sepsis without acute organ dysfunction, due to unspecified organism * GLUCOSE - POINT OF CARE(Performed 12/18/2021) * GLUCOSE - POINT OF CARE(Performed 12/18/2021) * BASIC METABOLIC PANEL (CALCIUM TOTAL)(Performed 12/18/2021) * CBC W/O DIFFERENTIAL(Performed 12/18/2021) * EKG 12-LEAD(Performed 12/17/2021) Performed for Atrial fibrillation with rapid ventricular response (HCC) * GLUCOSE - POINT OF CARE(Performed 12/17/2021) * GLUCOSE - POINT OF CARE(Performed 12/17/2021) * GLUCOSE - POINT OF CARE(Performed 12/17/2021) * GLUCOSE - POINT OF CARE(Performed 12/17/2021) * GLUCOSE - POINT OF CARE(Performed 12/17/2021) * BASIC METABOLIC PANEL (CALCIUM TOTAL)(Performed 12/17/2021) * CBC W/O DIFFERENTIAL(Performed 12/17/2021) * VANCOMYCIN LEVEL TROUGH(Performed 12/17/2021) * C-REACTIVE PROTEIN(Performed 12/17/2021) * GLUCOSE - POINT OF CARE(Performed 12/16/2021) * GLUCOSE - POINT OF CARE(Performed 12/16/2021) * GLUCOSE - POINT OF CARE(Performed 12/16/2021) * BASIC METABOLIC PANEL (CALCIUM TOTAL)(Performed 12/16/2021) * CBC W/O DIFFERENTIAL(Performed 12/16/2021) * GLUCOSE - POINT OF CARE(Performed 12/16/2021) * VANCOMYCIN LEVEL PEAK(Performed 12/16/2021) * GLUCOSE - POINT OF CARE(Performed 12/15/2021) * GLUCOSE - POINT OF CARE(Performed 12/15/2021) * GLUCOSE - POINT OF CARE(Performed 12/15/2021) * GLUCOSE - POINT OF CARE(Performed 12/15/2021) * MAGNESIUM BLOOD(Performed 12/15/2021) * CBC W/O DIFFERENTIAL(Performed 12/15/2021) * BASIC METABOLIC PANEL (CALCIUM TOTAL)(Performed 12/15/2021) * C-REACTIVE PROTEIN(Performed 12/15/2021) * GLUCOSE - POINT OF CARE(Performed 12/14/2021) * GLUCOSE - POINT OF CARE(Performed 12/14/2021) * GLUCOSE - POINT OF CARE(Performed 12/14/2021) * GLUCOSE - POINT OF CARE(Performed 12/14/2021) * GLUCOSE - POINT OF CARE(Performed 12/13/2021) * GLUCOSE - POINT OF CARE(Performed 12/13/2021) * GLUCOSE - POINT OF CARE(Performed 12/13/2021) * CBC W/O DIFFERENTIAL(Performed 12/13/2021) * VANCOMYCIN LEVEL TROUGH(Performed 12/13/2021) * GLUCOSE - POINT OF CARE(Performed 12/12/2021) * TRANSFUSE RED BLOOD CELL LEUKOREDUCED UNIT(S)(Performed 12/12/2021) * PREPARE RBC LEUKOREDUCED UNIT(Performed 12/12/2021) * GLUCOSE - POINT OF CARE(Performed 12/12/2021) * CBC W/O DIFFERENTIAL(Performed 12/12/2021) * GLUCOSE - POINT OF CARE(Performed 12/12/2021) * NICOLE DIRECT C3(Performed 12/12/2021) * NICOLE DIRECT IGG(Performed 12/12/2021) * GLUCOSE - POINT OF CARE(Performed 12/12/2021) * VANCOMYCIN LEVEL PEAK(Performed 12/12/2021) * ANTIBODY IDENTIFICATION(Performed 12/12/2021) * TYPE + SCREEN PANEL(Performed 12/12/2021) * BASIC METABOLIC PANEL (CALCIUM TOTAL)(Performed 12/12/2021) * CBC W/O DIFFERENTIAL(Performed 12/12/2021) * C-REACTIVE PROTEIN(Performed 12/12/2021) * GLUCOSE - POINT OF CARE(Performed 12/11/2021) * GLUCOSE - POINT OF CARE(Performed 12/11/2021) * ENDOTRACHEAL TUBE NOTE(Performed 12/11/2021) * INCISION AND DRAINAGE LEG/KNEE(Performed 12/11/2021) * LACTIC ACID BLOOD(Performed 12/11/2021) * CBC W/O DIFFERENTIAL(Performed 12/11/2021) * BASIC METABOLIC PANEL (CALCIUM TOTAL)(Performed 12/11/2021) * GLUCOSE - POINT OF CARE(Performed 12/10/2021) * GLUCOSE - POINT OF CARE(Performed 12/10/2021) * GLUCOSE - POINT OF CARE(Performed 12/10/2021) * GLUCOSE - POINT OF CARE(Performed 12/10/2021) * GLUCOSE - POINT OF CARE(Performed 12/10/2021) * ERYTHROCYTE SEDIMENTATION RATE(Performed 12/09/2021) * CBC W AUTO DIFFERENTIAL(Performed 12/09/2021) * CULTURE BLOOD(Performed 12/09/2021) * VANCOMYCIN LEVEL RANDOM(Performed 12/09/2021) * C-REACTIVE PROTEIN(Performed 12/09/2021) * TROPONIN I(Performed 12/09/2021) * PT-INR(Performed 12/09/2021) * PHOSPHORUS BLOOD(Performed 12/09/2021) * MAGNESIUM BLOOD(Performed 12/09/2021) * LACTIC ACID BLOOD(Performed 12/09/2021) * COMPREHENSIVE METABOLIC PANEL(Performed 12/09/2021) * CULTURE BLOOD(Performed 12/09/2021) * GLUCOSE - POINT OF CARE(Performed 12/09/2021) * XR ANKLE RIGHT 3VW OR MORE(Performed 12/09/2021) Performed for Osteomyelitis of ankle, right, acute (HCC) * GLUCOSE - POINT OF CARE(Performed 12/09/2021) * FL GO SURGERY(Performed 12/09/2021) Performed for Pain * CULTURE FUNGUS OTHER+FUNGUS SMEAR(Performed 12/09/2021) Performed for Diagnosis unknown * CULTURE WOUND+GRAM STAIN(Performed 12/09/2021) Performed for Diagnosis unknown * CULTURE AFB+SMEAR(Performed 12/09/2021) Performed for Diagnosis unknown * CULTURE ANAEROBE(Performed 12/09/2021) Performed for Diagnosis unknown * CULTURE WOUND+GRAM STAIN(Performed 12/09/2021) Performed for Diagnosis unknown * CULTURE AFB+SMEAR(Performed 12/09/2021) Performed for Diagnosis unknown * CULTURE ANAEROBE(Performed 12/09/2021) Performed for Diagnosis unknown * CULTURE WOUND+GRAM STAIN(Performed 12/09/2021) Performed for Diagnosis unknown * CULTURE AFB+SMEAR(Performed 12/09/2021) Performed for Diagnosis unknown * CULTURE ANAEROBE(Performed 12/09/2021) Performed for Diagnosis unknown * CULTURE WOUND+GRAM STAIN(Performed 12/09/2021) Performed for Diagnosis unknown * CULTURE AFB+SMEAR(Performed 12/09/2021) Performed for Diagnosis unknown * CULTURE ANAEROBE(Performed 12/09/2021) Performed for Diagnosis unknown * PATHOLOGY TISSUE EXAM (STL)(Performed 12/09/2021) Performed for Diagnosis unknown * ENDOTRACHEAL TUBE NOTE(Performed 12/09/2021) * OPEN REDUCTION INTERNAL FIXATION (ORIF) ANKLE(Performed 12/09/2021) * GLUCOSE - POINT OF CARE(Performed 12/09/2021) * GLUCOSE - POINT OF CARE(Performed 12/09/2021) * GLUCOSE - POINT OF CARE(Performed 12/08/2021) * XR ANKLE RIGHT 3VW OR MORE(Performed 11/30/2021) Performed for Closed displaced trimalleolar fracture of right ankle with delayed healing, subsequent encounter * VAS RIGHT VENOUS DUPLEX LE(Performed 11/17/2021) Performed for Right leg swelling, Osteomyelitis of ankle, right, acute ([facility]) * VAS ARTERIAL ANKLE ARM INDEX(Performed 11/17/2021) Performed for Type 2 diabetes mellitus without complication, with long-term current use of insulin ([facility]), PVD (peripheral vascular disease) ([facility]) * HEMOGLOBIN A1C(Performed 11/17/2021) Performed for Type 2 diabetes mellitus without complication, with long-term current use of insulin ([facility]) * ERYTHROCYTE SEDIMENTATION RATE(Performed 11/17/2021) Performed for Type 2 diabetes mellitus without complication, with long-term current use of insulin ([facility]) * CBC W AUTO DIFFERENTIAL(Performed 11/17/2021) Performed for Type 2 diabetes mellitus without complication, with long-term current use of insulin ([facility]) * COMPREHENSIVE METABOLIC PANEL(Performed 11/17/2021) Performed for Type 2 diabetes mellitus without complication, with long-term current use of insulin ([facility]) * PREALBUMIN(Performed 11/17/2021) Performed for Type 2 diabetes mellitus without complication, with long-term current use of insulin ([facility]) * C-REACTIVE PROTEIN(Performed 11/17/2021) Performed for Type 2 diabetes mellitus without complication, with long-term current use of insulin ([facility]) * XR ANKLE RIGHT 3VW OR MORE(Performed 08/31/2021) Performed for Closed displaced trimalleolar fracture of right ankle with delayed healing, subsequent encounter * XR ANKLE RIGHT 3VW OR MORE(Performed 07/08/2021) Performed for Closed displaced trimalleolar fracture of right ankle with delayed healing, subsequent encounter * CARDIAC EKG ORDER(Performed 06/23/2021) * CARDIAC RHYTHM STRIP ORDER(Performed 06/22/2021) * GLUCOSE - POINT OF CARE(Performed 06/19/2021) * SARS-COV-2 (COVID-19) RAPID(Performed 06/19/2021) * GLUCOSE - POINT OF CARE(Performed 06/18/2021) * GLUCOSE - POINT OF CARE(Performed 06/18/2021) * GLUCOSE - POINT OF CARE(Performed 06/18/2021) * GLUCOSE - POINT OF CARE(Performed 06/18/2021) * GLUCOSE - POINT OF CARE(Performed 06/17/2021) * VANCOMYCIN LEVEL TROUGH(Performed 06/17/2021) * GLUCOSE - POINT OF CARE(Performed 06/17/2021) * VANCOMYCIN LEVEL TROUGH(Performed 06/17/2021) * GLUCOSE - POINT OF CARE(Performed 06/17/2021) * GLUCOSE - POINT OF CARE(Performed 06/17/2021) * BASIC METABOLIC PANEL (CALCIUM TOTAL)(Performed 06/17/2021) * GLUCOSE - POINT OF CARE(Performed 06/16/2021) * GLUCOSE - POINT OF CARE(Performed 06/16/2021) * GLUCOSE - POINT OF CARE(Performed 06/16/2021) * GLUCOSE - POINT OF CARE(Performed 06/16/2021) * B-TYPE NATRIURETIC PEPTIDE(Performed 06/16/2021) * GLUCOSE - POINT OF CARE(Performed 06/15/2021) * BASIC METABOLIC PANEL (CALCIUM TOTAL)(Performed 06/15/2021) * VANCOMYCIN LEVEL TROUGH(Performed 06/15/2021) * GLUCOSE - POINT OF CARE(Performed 06/15/2021) * GLUCOSE - POINT OF CARE(Performed 06/15/2021) * GLUCOSE - POINT OF CARE(Performed 06/15/2021) * VANCOMYCIN LEVEL TROUGH(Performed 06/15/2021) * GLUCOSE - POINT OF CARE(Performed 06/14/2021) * GLUCOSE - POINT OF CARE(Performed 06/14/2021) * GLUCOSE - POINT OF CARE(Performed 06/14/2021) * GLUCOSE - POINT OF CARE(Performed 06/14/2021) * GLUCOSE - POINT OF CARE(Performed 06/13/2021) * GLUCOSE - POINT OF CARE(Performed 06/13/2021) * VANCOMYCIN LEVEL RANDOM(Performed 06/13/2021) * GLUCOSE - POINT OF CARE(Performed 06/13/2021) * GLUCOSE - POINT OF CARE(Performed 06/13/2021) * VANCOMYCIN LEVEL RANDOM(Performed 06/13/2021) * PHOSPHORUS BLOOD(Performed 06/13/2021) * MAGNESIUM BLOOD(Performed 06/13/2021) * CBC W AUTO DIFFERENTIAL(Performed 06/13/2021) * BASIC METABOLIC PANEL (CALCIUM TOTAL)(Performed 06/13/2021) * VANCOMYCIN LEVEL TROUGH(Performed 06/12/2021) * GLUCOSE - POINT OF CARE(Performed 06/12/2021) * GLUCOSE - POINT OF CARE(Performed 06/12/2021) * GLUCOSE - POINT OF CARE(Performed 06/12/2021) * GLUCOSE - POINT OF CARE(Performed 06/12/2021) * GLUCOSE - POINT OF CARE(Performed 06/12/2021) * PHOSPHORUS BLOOD(Performed 06/12/2021) * MAGNESIUM BLOOD(Performed 06/12/2021) * COMPREHENSIVE METABOLIC PANEL(Performed 06/12/2021) * CBC W AUTO DIFFERENTIAL(Performed 06/12/2021) * GLUCOSE - POINT OF CARE(Performed 06/11/2021) * GLUCOSE - POINT OF CARE(Performed 06/11/2021) * GLUCOSE - POINT OF CARE(Performed 06/11/2021) * PHOSPHORUS BLOOD(Performed 06/11/2021) * MAGNESIUM BLOOD(Performed 06/11/2021) * COMPREHENSIVE METABOLIC PANEL(Performed 06/11/2021) * CBC W AUTO DIFFERENTIAL(Performed 06/11/2021) * GLUCOSE - POINT OF CARE(Performed 06/11/2021) * GLUCOSE - POINT OF CARE(Performed 06/10/2021) * GLUCOSE - POINT OF CARE(Performed 06/10/2021) * GLUCOSE - POINT OF CARE(Performed 06/10/2021) * GLUCOSE - POINT OF CARE(Performed 06/10/2021) * TROPONIN I(Performed 06/09/2021) * GLUCOSE - POINT OF CARE(Performed 06/09/2021) * TROPONIN I(Performed 06/09/2021) * CT ANGIO CHEST PULM EMBOLISM(Performed 06/09/2021) Performed for Atrial fibrillation with rapid ventricular response (HCC), SOB (shortness of breath) * XR CHEST 1VW(Performed 06/09/2021) Performed for Atrial fibrillation with rapid ventricular response (HCC) * B-TYPE NATRIURETIC PEPTIDE(Performed 06/09/2021) * TROPONIN I(Performed 06/09/2021) * COMPREHENSIVE METABOLIC PANEL(Performed 06/09/2021) * CBC W AUTO DIFFERENTIAL(Performed 06/09/2021) * EKG 12-LEAD(Performed 06/09/2021) Performed for Atrial fibrillation with rapid ventricular response (HCC) * CARDIAC RHYTHM STRIP ORDER(Performed 05/25/2021) * GLUCOSE - POINT OF CARE(Performed 05/22/2021) * GLUCOSE - POINT OF CARE(Performed 05/22/2021) * GLUCOSE - POINT OF CARE(Performed 05/22/2021) * PHOSPHORUS BLOOD(Performed 05/22/2021) * MAGNESIUM BLOOD(Performed 05/22/2021) * COMPREHENSIVE METABOLIC PANEL(Performed 05/22/2021) * CBC W AUTO DIFFERENTIAL(Performed 05/22/2021) * VANCOMYCIN LEVEL TROUGH(Performed 05/21/2021) * GLUCOSE - POINT OF CARE(Performed 05/21/2021) * BASIC METABOLIC PANEL (CALCIUM TOTAL)(Performed 05/21/2021) * GLUCOSE - POINT OF CARE(Performed 05/21/2021) * GLUCOSE - POINT OF CARE(Performed 05/21/2021) * GLUCOSE - POINT OF CARE(Performed 05/20/2021) * GLUCOSE - POINT OF CARE(Performed 05/20/2021) * GLUCOSE - POINT OF CARE(Performed 05/20/2021) * GLUCOSE - POINT OF CARE(Performed 05/20/2021) * GLUCOSE - POINT OF CARE(Performed 05/19/2021) * VANCOMYCIN LEVEL TROUGH(Performed 05/19/2021) * GLUCOSE - POINT OF CARE(Performed 05/19/2021) * GLUCOSE - POINT OF CARE(Performed 05/19/2021) * GLUCOSE - POINT OF CARE(Performed 05/19/2021) * C-REACTIVE PROTEIN(Performed 05/19/2021) * GLUCOSE - POINT OF CARE(Performed 05/18/2021) * GLUCOSE - POINT OF CARE(Performed 05/18/2021) * GLUCOSE - POINT OF CARE(Performed 05/18/2021) * GLUCOSE - POINT OF CARE(Performed 05/18/2021) * C-REACTIVE PROTEIN(Performed 05/18/2021) * BASIC METABOLIC PANEL (CALCIUM TOTAL)(Performed 05/18/2021) * CBC W AUTO DIFFERENTIAL(Performed 05/18/2021) * GLUCOSE - POINT OF CARE(Performed 05/17/2021) * GLUCOSE - POINT OF CARE(Performed 05/17/2021) * GLUCOSE - POINT OF CARE(Performed 05/17/2021) * GLUCOSE - POINT OF CARE(Performed 05/17/2021) * CBC W AUTO DIFFERENTIAL(Performed 05/17/2021) * BASIC METABOLIC PANEL (CALCIUM TOTAL)(Performed 05/17/2021) * GLUCOSE - POINT OF CARE(Performed 05/16/2021) * HGB HCT PANEL(Performed 05/16/2021) * GLUCOSE - POINT OF CARE(Performed 05/16/2021) * TRANSFUSE RED BLOOD CELL LEUKOREDUCED UNIT(S)(Performed 05/16/2021) * PREPARE RBC LEUKOREDUCED UNIT(Performed 05/16/2021) * VANCOMYCIN LEVEL TROUGH(Performed 05/16/2021) * GLUCOSE - POINT OF CARE(Performed 05/16/2021) * TRANSFUSE RED BLOOD CELL LEUKOREDUCED UNIT(S)(Performed 05/16/2021) * GLUCOSE - POINT OF CARE(Performed 05/16/2021) * BASIC METABOLIC PANEL (CALCIUM TOTAL)(Performed 05/16/2021) * CBC W AUTO DIFFERENTIAL(Performed 05/16/2021) * GLUCOSE - POINT OF CARE(Performed 05/15/2021) * GLUCOSE - POINT OF CARE(Performed 05/15/2021) * CULTURE WOUND+GRAM STAIN(Performed 05/15/2021) Performed for Diagnosis unknown * CULTURE ANAEROBE(Performed 05/15/2021) Performed for Diagnosis unknown * CULTURE WOUND+GRAM STAIN(Performed 05/15/2021) Performed for Diagnosis unknown * CULTURE ANAEROBE(Performed 05/15/2021) Performed for Diagnosis unknown * REMOVAL HARDWARE LOWER EXTREMITY(Performed 05/15/2021) * GLUCOSE - POINT OF CARE(Performed 05/15/2021) * SARS-COV-2 (COVID-19) RAPID(Performed 05/15/2021) * GLUCOSE - POINT OF CARE(Performed 05/15/2021) * XR ANKLE RIGHT 3VW OR MORE(Performed 05/15/2021) Performed for Closed fracture of right ankle, sequela * CBC W AUTO DIFFERENTIAL(Performed 05/15/2021) * BASIC METABOLIC PANEL (CALCIUM TOTAL)(Performed 05/15/2021) * TRANSFUSE RED BLOOD CELL LEUKOREDUCED UNIT(S)(Performed 05/15/2021) * PREPARE RBC LEUKOREDUCED UNIT(Performed 05/15/2021) * TYPE + SCREEN PANEL(Performed 05/14/2021) * GLUCOSE - POINT OF CARE(Performed 05/14/2021) * CULTURE BLOOD(Performed 05/14/2021) * LACTIC ACID BLOOD(Performed 05/14/2021) * CULTURE BLOOD(Performed 05/14/2021) * FERRITIN(Performed 05/14/2021) * IRON + TRANSFERRIN PANEL(Performed 05/14/2021) * ERYTHROCYTE SEDIMENTATION RATE(Performed 05/14/2021) * C-REACTIVE PROTEIN(Performed 05/14/2021) * CBC W AUTO DIFFERENTIAL(Performed 05/14/2021) * COMPREHENSIVE METABOLIC PANEL(Performed 05/14/2021) * CARDIAC RHYTHM STRIP ORDER(Performed 04/27/2021) * CARDIAC EKG ORDER(Performed 04/27/2021) * IMAGING/RADIOLOGY/XRAY RESULTS ORDER(Performed 04/27/2021) * GLUCOSE - POINT OF CARE(Performed 04/25/2021) * GLUCOSE - POINT OF CARE(Performed 04/25/2021) * CBC W AUTO DIFFERENTIAL(Performed 04/25/2021) * PREPARE RBC LEUKOREDUCED UNIT(Performed 04/25/2021) * GLUCOSE - POINT OF CARE(Performed 04/24/2021) * SARS-COV-2 (COVID-19) RAPID(Performed 04/24/2021) * GLUCOSE - POINT OF CARE(Performed 04/24/2021) * GLUCOSE - POINT OF CARE(Performed 04/24/2021) * OCCULT BLOOD FECES(Performed 04/24/2021) * GLUCOSE - POINT OF CARE(Performed 04/24/2021) * CBC W AUTO DIFFERENTIAL(Performed 04/24/2021) * GLUCOSE - POINT OF CARE(Performed 04/23/2021) * GLUCOSE - POINT OF CARE(Performed 04/23/2021) * HGB HCT PANEL(Performed 04/23/2021) * GLUCOSE - POINT OF CARE(Performed 04/23/2021) * GLUCOSE - POINT OF CARE(Performed 04/23/2021) * CBC W AUTO DIFFERENTIAL(Performed 04/23/2021) * GLUCOSE - POINT OF CARE(Performed 04/22/2021) * GLUCOSE - POINT OF CARE(Performed 04/22/2021) * GLUCOSE - POINT OF CARE(Performed 04/22/2021) * GLUCOSE - POINT OF CARE(Performed 04/22/2021) * CBC W AUTO DIFFERENTIAL(Performed 04/22/2021) * GLUCOSE - POINT OF CARE(Performed 04/21/2021) * GLUCOSE - POINT OF CARE(Performed 04/21/2021) * GLUCOSE - POINT OF CARE(Performed 04/21/2021) * HGB HCT PANEL(Performed 04/21/2021) * FERRITIN(Performed 04/21/2021) * IRON + TRANSFERRIN PANEL(Performed 04/21/2021) * GLUCOSE - POINT OF CARE(Performed 04/21/2021) * TYPE + SCREEN PANEL(Performed 04/21/2021) * RETIC COUNT(Performed 04/21/2021) * CBC W AUTO DIFFERENTIAL(Performed 04/21/2021) * GLUCOSE - POINT OF CARE(Performed 04/20/2021) * GLUCOSE - POINT OF CARE(Performed 04/20/2021) * VAS RIGHT VENOUS DUPLEX LE(Performed 04/20/2021) Performed for Right leg swelling * GLUCOSE - POINT OF CARE(Performed 04/20/2021) * GLUCOSE - POINT OF CARE(Performed 04/20/2021) * CBC W AUTO DIFFERENTIAL(Performed 04/20/2021) * GLUCOSE - POINT OF CARE(Performed 04/19/2021) * GLUCOSE - POINT OF CARE(Performed 04/19/2021) * EKG 12-LEAD(Performed 04/19/2021) Performed for Atrial fibrillation with RVR ([facility]) * GLUCOSE - POINT OF CARE(Performed 04/19/2021) * GLUCOSE - POINT OF CARE(Performed 04/19/2021) * CBC W AUTO DIFFERENTIAL(Performed 04/19/2021) * GLUCOSE - POINT OF CARE(Performed 04/18/2021) * URINE MICROSCOPIC ONLY REFLEX TO CULTURE(Performed 04/18/2021) * URINALYSIS REFLEX MICROSCOPIC REFLEX CULTURE(Performed 04/18/2021) * CULTURE URINE(Performed 04/18/2021) * GLUCOSE - POINT OF CARE(Performed 04/18/2021) * GLUCOSE - POINT OF CARE(Performed 04/18/2021) * SARS-COV-2 (COVID-19) RAPID(Performed 04/18/2021) * CULTURE BLOOD(Performed 04/18/2021) * CBC W AUTO DIFFERENTIAL(Performed 04/18/2021) * CULTURE BLOOD(Performed 04/18/2021) * XR CHEST 1VW PORTABLE(Performed 04/18/2021) Performed for SIRS (systemic inflammatory response syndrome) ([facility]) * GLUCOSE - POINT OF CARE(Performed 04/18/2021) * GLUCOSE - POINT OF CARE(Performed 04/17/2021) * GLUCOSE - POINT OF CARE(Performed 04/17/2021) * GLUCOSE - POINT OF CARE(Performed 04/17/2021) * GLUCOSE - POINT OF CARE(Performed 04/17/2021) * GLUCOSE - POINT OF CARE(Performed 04/16/2021) * GLUCOSE - POINT OF CARE(Performed 04/16/2021) * GLUCOSE - POINT OF CARE(Performed 04/16/2021) * GLUCOSE - POINT OF CARE(Performed 04/16/2021) * GLUCOSE - POINT OF CARE(Performed 04/15/2021) * GLUCOSE - POINT OF CARE(Performed 04/15/2021) * GLUCOSE - POINT OF CARE(Performed 04/15/2021) * GLUCOSE - POINT OF CARE(Performed 04/15/2021) * GLUCOSE - POINT OF CARE(Performed 04/14/2021) * GLUCOSE - POINT OF CARE(Performed 04/14/2021) * GLUCOSE - POINT OF CARE(Performed 04/14/2021) * GLUCOSE - POINT OF CARE(Performed 04/14/2021) * XR ANKLE RIGHT 3VW OR MORE(Performed 04/14/2021) Performed for Closed fracture of right ankle, initial encounter * GLUCOSE - POINT OF CARE(Performed 04/13/2021) * GLUCOSE - POINT OF CARE(Performed 04/13/2021) * HEPATIC FUNCTION PANEL(Performed 04/13/2021) * CERULOPLASMIN(Performed 04/13/2021) * COPPER BLOOD(Performed 04/13/2021) * FOLATE(Performed 04/13/2021) * VITAMIN B12(Performed 04/13/2021) * TSH REFLEX FREE T4(Performed 04/13/2021) * GLUCOSE - POINT OF CARE(Performed 04/13/2021) * GLUCOSE - POINT OF CARE(Performed 04/13/2021) * GLUCOSE - POINT OF CARE(Performed 04/12/2021) * GLUCOSE - POINT OF CARE(Performed 04/12/2021) * GLUCOSE - POINT OF CARE(Performed 04/12/2021) * GLUCOSE - POINT OF CARE(Performed 04/12/2021) * GLUCOSE - POINT OF CARE(Performed 04/12/2021) * GLUCOSE - POINT OF CARE(Performed 04/11/2021) * GLUCOSE - POINT OF CARE(Performed 04/11/2021) * GLUCOSE - POINT OF CARE(Performed 04/11/2021) * GLUCOSE - POINT OF CARE(Performed 04/11/2021) * GLUCOSE - POINT OF CARE(Performed 04/10/2021) * GLUCOSE - POINT OF CARE(Performed 04/10/2021) * GLUCOSE - POINT OF CARE(Performed 04/10/2021) * GLUCOSE - POINT OF CARE(Performed 04/09/2021) * GLUCOSE - POINT OF CARE(Performed 04/09/2021) * GLUCOSE - POINT OF CARE(Performed 04/09/2021) * GLUCOSE - POINT OF CARE(Performed 04/09/2021) * GLUCOSE - POINT OF CARE(Performed 04/08/2021) * GLUCOSE - POINT OF CARE(Performed 04/08/2021) * GLUCOSE - POINT OF CARE(Performed 04/08/2021) * GLUCOSE - POINT OF CARE(Performed 04/08/2021) * CBC W AUTO DIFFERENTIAL(Performed 04/08/2021) * COMPREHENSIVE METABOLIC PANEL(Performed 04/08/2021) * GLUCOSE - POINT OF CARE(Performed 04/07/2021) * XR ANKLE RIGHT 3VW OR MORE(Performed 04/07/2021) Performed for Closed fracture of right ankle, initial encounter * GLUCOSE - POINT OF CARE(Performed 04/07/2021) * FL GO SURGERY(Performed 04/07/2021) Performed for Pain * ENDOTRACHEAL TUBE NOTE(Performed 04/07/2021) * PERIPHERAL BLOCK(Performed 04/07/2021) * OPEN REDUCTION INTERNAL FIXATION (ORIF) ANKLE(Performed 04/07/2021) Performed for Diagnosis unknown * GLUCOSE - POINT OF CARE(Performed 04/07/2021) * GLUCOSE - POINT OF CARE(Performed 04/07/2021) * PT-INR(Performed 04/07/2021) * CBC W/O DIFFERENTIAL(Performed 04/07/2021) * COMPREHENSIVE METABOLIC PANEL(Performed 04/07/2021) * GLUCOSE - POINT OF CARE(Performed 04/06/2021) * GLUCOSE - POINT OF CARE(Performed 04/06/2021) * GLUCOSE - POINT OF CARE(Performed 04/06/2021) * GLUCOSE - POINT OF CARE(Performed 04/06/2021) * GLUCOSE - POINT OF CARE(Performed 04/05/2021) * GLUCOSE - POINT OF CARE(Performed 04/05/2021) * GLUCOSE - POINT OF CARE(Performed 04/05/2021) * GLUCOSE - POINT OF CARE(Performed 04/05/2021) * GLUCOSE - POINT OF CARE(Performed 04/04/2021) * GLUCOSE - POINT OF CARE(Performed 04/04/2021) * GLUCOSE - POINT OF CARE(Performed 04/04/2021) * GLUCOSE - POINT OF CARE(Performed 04/04/2021) * CBC W/O DIFFERENTIAL(Performed 04/04/2021) * MAGNESIUM BLOOD(Performed 04/04/2021) * COMPREHENSIVE METABOLIC PANEL(Performed 04/04/2021) * GLUCOSE - POINT OF CARE(Performed 04/03/2021) * GLUCOSE - POINT OF CARE(Performed 04/03/2021) * GLUCOSE - POINT OF CARE(Performed 04/03/2021) * GLUCOSE - POINT OF CARE(Performed 04/03/2021) * GLUCOSE - POINT OF CARE(Performed 04/02/2021) * GLUCOSE - POINT OF CARE(Performed 04/02/2021) * GLUCOSE - POINT OF CARE(Performed 04/02/2021) * GLUCOSE - POINT OF CARE(Performed 04/02/2021) * CBC W/O DIFFERENTIAL(Performed 04/02/2021) * BASIC METABOLIC PANEL (CALCIUM TOTAL)(Performed 04/02/2021) * GLUCOSE - POINT OF CARE(Performed 04/02/2021) * GLUCOSE - POINT OF CARE(Performed 04/01/2021) * GLUCOSE - POINT OF CARE(Performed 04/01/2021) * GLUCOSE - POINT OF CARE(Performed 04/01/2021) * GLUCOSE - POINT OF CARE(Performed 03/31/2021) * GLUCOSE - POINT OF CARE(Performed 03/31/2021) * GLUCOSE - POINT OF CARE(Performed 03/31/2021) * GLUCOSE - POINT OF CARE(Performed 03/31/2021) * GLUCOSE - POINT OF CARE(Performed 03/30/2021) * GLUCOSE - POINT OF CARE(Performed 03/30/2021) * GLUCOSE - POINT OF CARE(Performed 03/30/2021) * GLUCOSE - POINT OF CARE(Performed 03/30/2021) * GLUCOSE - POINT OF CARE(Performed 03/29/2021) * GLUCOSE - POINT OF CARE(Performed 03/29/2021) * GLUCOSE - POINT OF CARE(Performed 03/29/2021) * GLUCOSE - POINT OF CARE(Performed 03/29/2021) * GLUCOSE - POINT OF CARE(Performed 03/28/2021) * GLUCOSE - POINT OF CARE(Performed 03/28/2021) * GLUCOSE - POINT OF CARE(Performed 03/28/2021) * GLUCOSE - POINT OF CARE(Performed 03/27/2021) * GLUCOSE - POINT OF CARE(Performed 03/27/2021) * GLUCOSE - POINT OF CARE(Performed 03/27/2021) * GLUCOSE - POINT OF CARE(Performed 03/27/2021) * GLUCOSE - POINT OF CARE(Performed 03/26/2021) * GLUCOSE - POINT OF CARE(Performed 03/26/2021) * CT LOWER EXT RIGHT WO CONTRAST(Performed 03/26/2021) Performed for Closed fracture of right ankle, initial encounter * GLUCOSE - POINT OF CARE(Performed 03/26/2021) * COMPREHENSIVE METABOLIC PANEL(Performed 03/26/2021) * CBC W AUTO DIFFERENTIAL(Performed 03/26/2021) * HEMOGLOBIN A1C(Performed 03/26/2021) * GLUCOSE - POINT OF CARE(Performed 03/25/2021) * XR ANKLE RIGHT 3VW OR MORE(Performed 03/25/2021) Performed for Closed fracture of right ankle, initial encounter * GLUCOSE - POINT OF CARE(Performed 03/25/2021) * FL GO SURGERY(Performed 03/25/2021) Performed for Pain * ENDOTRACHEAL TUBE NOTE(Performed 03/25/2021) * OPEN REDUCTION INTERNAL FIXATION (ORIF) ANKLE(Performed 03/25/2021) * TROPONIN I(Performed 03/25/2021) * GLUCOSE - POINT OF CARE(Performed 03/25/2021) * XR ANKLE RIGHT 3VW OR MORE(Performed 03/25/2021) Performed for Closed fracture of right ankle, initial encounter * XR ANKLE RIGHT 3VW OR MORE(Performed 03/25/2021) Performed for Closed fracture of right ankle, initial encounter * FL GO SURGERY(Performed 03/25/2021) Performed for Acute right ankle pain * ENDOTRACHEAL TUBE NOTE(Performed 03/25/2021) * XR CHEST 1VW PORTABLE(Performed 03/25/2021) Performed for Tachycardia * ECHOCARDIOGRAM 2D WITH DOPPLER(Performed 03/25/2021) Performed for Atrial fibrillation with RVR (HCC) * OPEN REDUCTION INTERNAL FIXATION (ORIF) ANKLE(Performed 03/25/2021) * EKG 12-LEAD(Performed 03/25/2021) Performed for Atrial fibrillation with RVR (HCC) * ED MODERATE SEDATION(Performed 03/25/2021) Performed for Closed fracture of right ankle, initial encounter * CT HEAD WO CONTRAST(Performed 03/25/2021) Performed for Fall from standing, initial encounter * XR ANKLE RIGHT 2VW(Performed 03/25/2021) Performed for Closed fracture of right ankle, initial encounter * XR ANKLE RIGHT 2VW(Performed 03/25/2021) Performed for Pain * XR ANKLE RIGHT 1VW(Performed 03/25/2021) Performed for Pain * XR ANKLE RIGHT 1VW(Performed 03/25/2021) Performed for Closed fracture of right ankle, initial encounter * SARS-COV-2 (COVID-19) FLU A/B RSV PCR RAPID(Performed 03/25/2021) * EKG 12-LEAD(Performed 03/25/2021) Performed for Tachycardia * HEMOGLOBIN A1C(Performed 03/25/2021) * TROPONIN I(Performed 03/25/2021) * BASIC METABOLIC PANEL (CALCIUM TOTAL)(Performed 03/25/2021) * CBC W AUTO DIFFERENTIAL(Performed 03/25/2021) * ED CRITICAL CARE(Performed 03/25/2021) Performed for Atrial fibrillation with RVR (HCC) * XR ANKLE RIGHT 3VW OR MORE(Performed 03/24/2021) Performed for Closed fracture of right ankle, initial encounter * COMPREHENSIVE METABOLIC PANEL(Performed 12/20/2019) Performed for Encounter for long-term (current) use of medications * C-REACTIVE PROTEIN(Performed 12/20/2019) Performed for MSSA (methicillin susceptible Staphylococcus aureus) infection, Open wound of right hand without foreign body, subsequent encounter * ERYTHROCYTE SEDIMENTATION RATE(Performed 12/20/2019) Performed for MSSA (methicillin susceptible Staphylococcus aureus) infection, Open wound of right hand without foreign body, subsequent encounter * LAB RESULTS ORDER(Performed 11/21/2019) * LAB RESULTS ORDER(Performed 11/20/2019) * LAB RESULTS ORDER(Performed 11/06/2019) * LAB RESULTS ORDER(Performed 10/30/2019) * COMPREHENSIVE METABOLIC PANEL(Performed 10/12/2019) Performed for Postoperative wound infection * IR PICC LINE INSERT(Performed 10/12/2019) Performed for Hand, open wound except fingers, complicated, right, subsequent encounter, MSSA (methicillin susceptible Staphylococcus aureus) infection * GLUCOSE - POINT OF CARE(Performed 09/12/2019) * GLUCOSE - POINT OF CARE(Performed 09/12/2019) * CULTURE ANAEROBE(Performed 09/12/2019) Performed for Open wound of left upper arm, subsequent encounter * CULTURE FLUID+GRAM STAIN(Performed 09/12/2019) Performed for Open wound of left upper arm, subsequent encounter * IL INCISE FINGER TENDON SHEATH(Performed 09/12/2019) Performed for Trigger finger of right hand, unspecified finger * GLUCOSE - POINT OF CARE(Performed 09/12/2019) * SARS-COV-2 (COVID-19) IN HOUSE(Performed 09/11/2019) Performed for Open wound of left upper arm, subsequent encounter * CT HAND RIGHT W CONTRAST(Performed 09/04/2019) Performed for MSSA (methicillin susceptible Staphylococcus aureus) infection, Postoperative wound infection * COMPREHENSIVE METABOLIC PANEL(Performed 08/21/2019) Performed for MSSA (methicillin susceptible Staphylococcus aureus) infection, Postoperative wound infection * CBC W AUTO DIFFERENTIAL(Performed 08/21/2019) Performed for MSSA (methicillin susceptible Staphylococcus aureus) infection, Postoperative wound infection * CULTURE ABSCESS+GRAM STAIN(Performed 07/30/2019) Performed for Open wound of right hand without foreign body, unspecified wound type, subsequent encounter * CULTURE WOUND+GRAM STAIN(Performed 07/23/2019) Performed for Open wound of right hand without foreign body, unspecified wound type, subsequent encounter * CULTURE ABSCESS+GRAM STAIN(Performed 07/06/2019) Performed for Open wound of right hand without foreign body, unspecified wound type, subsequent encounter * GLUCOSE - POINT OF CARE(Performed 05/23/2019) * CULTURE ANAEROBE(Performed 05/23/2019) Performed for Open wound of right hand without foreign body, subsequent encounter * CULTURE TISSUE+GRAM STAIN(Performed 05/23/2019) Performed for Open wound of right hand without foreign body, subsequent encounter * PATHOLOGY TISSUE(Performed 05/23/2019) Performed for Open wound of right hand without foreign body, subsequent encounter * FLAP TRANSFER/ROTATIONAL/ADVANCEMENT(Performed 05/23/2019) Performed for Open wound of right hand without foreign body, subsequent encounter * LARYNGEAL MASK AIRWAY(Performed 05/23/2019) * GLUCOSE - POINT OF CARE(Performed 05/23/2019) * GLUCOSE - POINT OF CARE(Performed 05/23/2019) * GLUCOSE - POINT OF CARE(Performed 01/03/2019) * CULTURE WOUND+GRAM STAIN(Performed 01/03/2019) Performed for Open wound of right hand without foreign body, unspecified wound type, subsequent encounter * CULTURE AFB+SMEAR(Performed 01/03/2019) Performed for Open wound of right hand without foreign body, unspecified wound type, subsequent encounter * CULTURE ANAEROBE(Performed 01/03/2019) Performed for Open wound of right hand without foreign body, unspecified wound type, subsequent encounter * PATHOLOGY TISSUE(Performed 01/03/2019) Performed for Diagnosis unknown * EXCISION LESION HAND/WRIST/FINGER(Performed 01/03/2019) Performed for Diagnosis unknown * LARYNGEAL MASK AIRWAY(Performed 01/03/2019) * GLUCOSE - POINT OF CARE(Performed 01/03/2019) * CULTURE WOUND+GRAM STAIN(Performed 10/02/2018) Performed for Hand, open wound except fingers, complicated, right, subsequent encounter * XR HAND RIGHT 3VW OR MORE(Performed 09/15/2018) Performed for Open wound of right hand, foreign body presence unspecified, unspecified wound type, subsequent encounter * IRRIGATION/DEBRIDEMENT WOUND/TISSUE(Performed 08/02/2018) Performed for Avulsion of hand (no fingers), right, subsequent encounter * GLUCOSE - POINT OF CARE(Performed 05/25/2018) * PATHOLOGY TISSUE(Performed 05/25/2018) Performed for Open wound of right hand without foreign body, subsequent encounter * IRRIGATION/DEBRIDEMENT WOUND/TISSUE(Performed 05/25/2018) Performed for Open wound of right hand without foreign body, subsequent encounter * GLUCOSE - POINT OF CARE(Performed 05/25/2018) * CULTURE FUNGUS OTHER+FUNGUS SMEAR(Performed 12/22/2017) Performed for Trigger finger, right ring finger * CULTURE AFB+SMEAR(Performed 12/22/2017) Performed for Trigger finger, right ring finger * CULTURE WOUND+GRAM STAIN(Performed 12/22/2017) Performed for Trigger finger, right ring finger * CULTURE ANAEROBE(Performed 12/22/2017) Performed for Trigger finger, right ring finger * IRRIGATION/DEBRIDEMENT WOUND/TISSUE(Performed 12/22/2017) Performed for Laceration of right index finger w/o foreign body with damage to nail, sequela * TYPE + SCREEN PANEL(Performed 12/22/2017) Performed for Trigger finger, right ring finger * CBC W/O DIFFERENTIAL(Performed 12/22/2017) Performed for Trigger finger, right ring finger * BASIC METABOLIC PANEL (CALCIUM TOTAL)(Performed 12/22/2017) Performed for Trigger finger, right ring finger * GLUCOSE - POINT OF CARE(Performed 11/10/2017) * RELEASE TRIGGER FINGER (TENDON SHEATH)(Performed 11/10/2017) Performed for Trigger finger, right ring finger * GLUCOSE - POINT OF CARE(Performed 11/10/2017) * ENDOTRACHEAL TUBE NOTE(Performed 09/02/2017) * GLUCOSE - POINT OF CARE(Performed 08/31/2017) * CULTURE FUNGUS OTHER+FUNGUS SMEAR(Performed 08/31/2017) Performed for Unspecified open wound of left upper arm, subsequent encounter * CULTURE ANAEROBE(Performed 08/31/2017) Performed for Unspecified open wound of left upper arm, subsequent encounter * CULTURE TISSUE+GRAM STAIN(Performed 08/31/2017) Performed for Unspecified open wound of left upper arm, subsequent encounter * CULTURE AFB+SMEAR(Performed 08/31/2017) Performed for Unspecified open wound of left upper arm, subsequent encounter * PATHOLOGY TISSUE(Performed 08/31/2017) Performed for Open wound of left upper arm with complication, subsequent encounter * IRRIGATION/DEBRIDEMENT WOUND/TISSUE(Performed 08/31/2017) Performed for Open wound of left upper arm with complication, subsequent encounter * GLUCOSE - POINT OF CARE(Performed 08/31/2017) * XR ELBOW LEFT 3VW OR MORE(Performed 07/29/2017) Performed for Open wound of left upper arm, initial encounter * GLUCOSE ACCUCHECK(Performed 04/21/2017) * PATHOLOGY TISSUE(Performed 04/21/2017) * BLOOD GASES ARTERIAL(Performed 04/21/2017) * GLUCOSE ACCUCHECK(Performed 04/21/2017) * BASIC METABOLIC PANEL (CALCIUM TOTAL)(Performed 04/21/2017) * EKG 12-LEAD(Performed 04/21/2017) Results * PLATELET COUNT AUTO CITRATED BLOOD (04/17/2024 11:10 AM [employer]) Platelet Count Citrated 04/17/2024 12:44 PM [employer] [facility] Comment:Unable to report Blood BLOOD SPECIMEN / Unknown Venipuncture / Unknown 04/17/2024 11:10 AM [employer] 04/17/2024 11:18 AM [employer] Redd Middleton MD LAB - HEMATOLOGY ORD ERABLES [facility] [address] [place] [address], [facility] [phone] * (ABNORMAL) CBC W/ DIFFERENTIAL (04/17/2024 8:43 AM [facility]) Only the most recent of66 resultswithin the time period is included. WBC 9.7 4.0 - 10.7 x10E9/L 04/17/2024 10:[address] [facility] RBC Count 3.69(L) 3.90 - 5.20 x10E12/L 04/17/2024 10:[address] [facility] Hemoglobin 11.4(L) 11.9 - 15.8 g/dL 04/17/2024 10:[address] [facility] Hematocrit 35.4 34.8 - 46.1 % 04/17/2024 10:[address] [facility] MCV 95.9 80.0 - 98.0 fL 04/17/2024 10:[address] [facility] MCH 30.9 26.7 - 33.6 pg 04/17/2024 10:[address] [facility] MCHC 32.2 31.7 - 36.3 g/dL 04/17/2024 10:[address] [facility] RDW-CV 13.9 11.3 - 14.8 % 04/17/2024 10:[address] [facility] Platelet Count 04/17/2024 10:[address] [facility] Comment:Platelets clumped on slide but appears adequate. Recommend repeat with a sodium citrate blue top tube. MPV 04/17/2024 10:[address] [facility] Comment:Unable to report Preliminary Absolute Neutrophil 7.64(H) 1.60 - 7.50 x10E9/L 04/17/2024 10:[address] [facility] Comment:Preliminary ANC pend ing manual confirmation Neutrophil % 79.2(H) 41.0 - 74.0 % 04/17/2024 10:[address] [facility] Lymphocyte % 10.9(L) 17.0 - 47.0 % 04/17/2024 10:[address] [facility] Monocyte % 6.5 3.0 - 11.0 % 04/17/2024 10:[address] [facility] Eosinophil % 1.8 0.0 - 7.0 % 04/17/2024 10:[address] [facility] Basophil % 0.4 0.0 - 1.6 % 04/17/2024 10:[address] [facility] Immature Granulocytes % 1.2(H) 0.0 - 1.0 % 04/17/2024 10:[address] [facility] Neutrophil Absolute 7.64(H) 1.60 - 7.50 x10E9/L 04/17/2024 10:[address] [facility] Lymphocyte Absolute 1.05 1.00 - 4.40 x10E9/L 04/17/2024 10:[address] [facility] Monocyte Absolute 0.63 0.15 - 1.00 x10E9/L 04/17/2024 10:[address] [facility] Eosinophil Absolute 0.17 0.00 - 0.60 x10E9/L 04/17/2024 10:[address] [facility] Basophil Absolute 0.04 0.00 - 0.13 x10E9/L 04/17/2024 10:[address] [facility] Blood BLOOD SPECIMEN / Unknown Venipuncture / Unknown 04/17/2024 8:43 AM [employer] 04/17/2024 9:15 AM [facility] Redd Middleton MD LAB - HEMATOLOGY ORD ERABLES [facility] [address] [place] [id number], [facility] [phone] * (ABNORMAL) COMPREHENSIVE METABOLIC PANEL (04/17/2024 8:43 AM [employer]) Only the most recent of42 resultswithin the time period is included. BUN 12 7 - 26 mg/dL 04/17/2024 9:[address] [facility] Creatinine 1.01(H) 0.56 - 0.96 mg/dL 04/17/2024 9:[address] [facility] Sodium 138 136 - 145 mmol/L 04/17/2024 9:[address] [facility] Potassium 4.8(H) 3.5 - 4.5 mmol/L 04/17/2024 9:[address] [facility] Chloride 104 98 - 107 mmol/L 04/17/2024 9:[address] [facility] CO2 27 22 - 29 mmol/L 04/17/2024 9:[address] [facility] Glucose 231(H) 70 - 99 mg/dL 04/17/2024 9:[address] [facility] Calcium 9.3 8.4 - 10.2 mg/dL 04/17/2024 9:[address] [facility] Protein Total 7.2 6.0 - 8.3 g/dL 04/17/2024 9:[address] [facility] Albumin 2.8(L) 3.4 - 5.0 g/dL 04/17/2024 9:[address] [facility] Bilirubin Total 0.2 0.2 - 1.2 mg/dL 04/17/2024 9:[address] [facility] Alkaline Phosphatase 120 40 - 150 U/L 04/17/2024 9:[address] [facility] ALT 22 5 - 55 U/L 04/17/2024 9:[address] [facility] AST 22 5 - 34 U/L 04/17/2024 9:[address] [facility] Anion Gap 7 6 - 16 04/17/2024 9:[address] [facility] BUN/Creatinine Ratio 12 7 - 23 04/17/2024 9:[address] [facility] Osmolality Calculated 293 275 - 295 mOsm/kg 04/17/2024 9:[address] [facility] Albumin/Globulin Ratio 0.6(L) 1.1 - 2.3 04/17/2024 9:[address] [facility] eGFR by CKD-EPI 59(L) >=90 mL/min/1.7 3 m2 04/17/2024 9:[address] [facility] Blood BLOOD SPECIMEN / Unknown Venipuncture / Unknown 04/17/2024 8:43 AM [employer] 04/17/2024 9:01 AM [employer] eRdd Middleton MD LAB - CHEMISTRY DIAMANTE CARCAMO Performing Organization Address City/[facility]/ZIP Co de Phone Number [address] [address], [facility] [phone] * TSH (04/17/2024 8:43 AM [employer]) Only the most recent of10 resultswithin the time period is included. TSH 2.067 0.350 - 4.940 uIU/mL 04/17/2024 9:47 AM [employer] [facility] Blood BLOOD SPECIMEN / Unknown Venipuncture / Unknown 04/17/2024 8:43 AM [employer] 04/17/2024 9:01 AM [employer] Redd Middleton MD LAB - CHEMISTRY DIAMANTE CARCAMO Performing Organization Address City/[facility]/ZIP Co de Phone Number [address] [address], [place] [phone] * Mammo Bilat Diagnostic [facility] [place] (02/07/2024 9:00 AM [employer]) Only the most recent of2 resultswithin the time period is included. Anatomical Region Laterality Modality Breast Bilateral Mammography 02/07/2024 8:25 AM [employer] Impressions 02/07/2024 10:42 AM [employer] IMPRESSION: No mammographic evidence of malignancy in [...] 2: BENIGN. Report dictated by Monica Knapp [facility], FR (breast imaging fellow). I, Alondra Mancia DO have personally reviewed and interpreted this examination/study. > Interpreting Provider: Alondra Mancia DO on 02/07/2024 10:42 AM Narrative 02/07/2024 10:42 AM [employer] EXAMINATIONS: BILATERAL DIGITAL DIAGNOSTIC MAMMOGRAM AND BREAST TOMOSYNTHESIS LOCATION: [facility] EXAM DATE: 02/07/2024 HISTORY: Prior history [...] change. Kelsey Renner MD MAMMO ORDERABLES * IMAGING RADIOLOGY XRAY RESULTS ORDER (12/02/2023) Only the most recent of3 resultswithin the time period is included. Anatomical Region Laterality Modality Other 12/02/2023 Narrative 12/02/2023 Ordered by an unspecified provider. Scanned Document IMAGING * (ABNORMAL) GLUCOSE - POINT OF CARE (11/19/2023 8:24 AM CDT) Only the most recent of499 resultswithin the time period is included. [facility] Glucose WB/POC 140(H) 70 - 115 mg/dL 11/19/2023 8:29 AM [facility] Specimen Type Cap Fingerstick 2023 8:29 AM [facility] Blood BLOOD SPECIMEN / Unknown 11/19/2023 8:24 AM CDT 11/19/2023 8:29 AM CDT Kristen Rooney MD LAB - POINT OF CARE ORDERABLES [address] [address], [facility] [phone] * (ABNORMAL) CBC W/O DIFFERENTIAL (11/18/2023 2:19 AM CDT) Only the most recent of43 resultswithin the time period is included. [facility] WBC 5.5 4.0 - 10.7 x10E9/L 11/18/2023 3:28 AM [facility] RBC Count 2.73(L) 3.90 - 5.20 x10E12/L 11/18/2023 3:28 AM [facility] Hemoglobin 8.7(L) 11.9 - 15.8 g/dL 11/18/2023 3:28 AM [facility] Hematocrit 26.9(L) 34.8 - 46.1 % 11/18/2023 3:28 AM [facility] MCV 98.5(H) 80.0 - 98.0 fL 11/18/2023 3:28 AM [facility] MCH 31.9 26.7 - 33.6 pg 11/18/2023 3:28 AM [facility] MCHC 32.3 31.7 - 36.3 g/dL 11/18/2023 3:28 AM [facility] RDW-CV 16.6(H) 11.3 - 14.8 % 11/18/2023 3:28 AM [facility] Platelet Count 157 150 - 420 x10E9/L 11/18/2023 3:28 AM [facility] MPV 11.4 7.8 - 11.4 fL 11/18/2023 3:28 AM [facility] Blood BLOOD SPECIMEN / Unknown Lab Venipuncture / Unknown 11/18/2023 2:19 AM CDT 11/18/2023 3:19 AM CDT Derrell Henry MD LAB - HEMATOLOGY ORD ERABLES [facility] [address] [place] [address], [facility] [phone] * (ABNORMAL) BASIC METABOLIC PANEL (CALCIUM TOTAL) (11/18/2023 2:19 AM CDT) Only the most recent of59 resultswithin the time period is included. BUN 11 7 - 26 mg/dL 11/18/2023 3:45 AM [facility] Creatinine 1.06(H) 0.56 - 0.96 mg/dL 11/18/2023 3:45 AM [facility] Sodium 142 136 - 145 mmol/L 11/18/2023 3:45 AM [facility] Potassium 3.7 3.5 - 4.5 mmol/L 11/18/2023 3:45 AM [facility] Chloride 109(H) 98 - 107 mmol/L 11/18/2023 3:45 AM [facility] CO2 27 22 - 29 mmol/L 11/18/2023 3:45 AM [facility] Glucose 130(H) 70 - 115 mg/dL 11/18/2023 3:45 AM [facility] Calcium 8.2(L) 8.4 - 10.2 mg/dL 11/18/2023 3:45 AM [facility] Anion Gap 6 6 - 16 11/18/2023 3:45 AM [facility] BUN/Creatinine Ratio 10 7 - 23 11/18/2023 3:45 AM [facility] Osmolality Calculated 295 275 - 295 mOsm/kg 11/18/2023 3:45 AM CDT [facility] eGFR by CKD-EPI 56(L) >=90 mL/min/1.7 3 m2 11/18/2023 3:45 AM CDT [facility] Blood BLOOD SPECIMEN / Unknown Lab Venipuncture / Unknown 11/18/2023 2:19 AM CDT 11/18/2023 3:18 AM CDT Terence Brizuela MD LAB - CHEMISTRY DIAMANTE CARCAMO [address] [address], [facility] [phone] * PHOSPHORUS BLOOD (11/18/2023 2:19 AM CDT) Only the most recent of27 resultswithin the time period is included. Phosphorus 3.3 2.9 - 5.1 mg/dL 11/18/2023 3:45 AM CDT [facility] Blood BLOOD SPECIMEN / Unknown Lab Venipuncture / Unknown 11/18/2023 2:19 AM CDT 11/18/2023 3:18 AM CDT Terence Brizuela MD LAB - CHEMISTRY DIAMANTE CARCAMO Performing Organization Address City/[facility]/ZIP Co de Phone Number [address] [address], [place] [phone] * MAGNESIUM BLOOD (11/18/2023 2:19 AM CDT) Only the most recent of53 resultswithin the time period is included. Magnesium 1.8 1.6 - 2.6 mg/dL 11/18/2023 3:45 AM CDT [facility] Blood BLOOD SPECIMEN / Unknown Lab Venipuncture / Unknown 11/18/2023 2:19 AM CDT 11/18/2023 3:18 AM CDT Terence Brizuela MD LAB - CHEMISTRY DIAMANTE CARCAMO [address] [place] [address], [facility] [phone] * PREPARE (CROSSMATCH) RBC UNIT(S), 2 Units (11/18/2023 1:17 AM CDT) Only the most recent of17 resultswithin the time period is included. Unit Description AS1 LR PRBC IRR [facility] Unit ABO A [facility] Unit Rh POS [facility] Product Number R04 [facility] LO[facility] Unit Donor # [id number] [facility] Unit Status released [facility] D [facility] Product Code [id number] [facility] Blood Type Barcode 6200 [facility] Expiration Date S BLOOD BANK LAB Unit Description AS1 LR PRBC IRR [facility] Unit ABO A [facility] Unit Rh POS [facility] Product Number R04 [facility] B LO[facility] LAB Unit Donor # [id number] [facility] Unit Status released [facility] Product Code [id number] [facility] Blood Type Barcode 6200 [facility] Expiration Date S BLOOD BANK LAB Blood Bank BLOOD SPECIMEN / Unknown 11/14/2023 8:21 AM CDT Derrell Henry MD LAB - BLOOD BANK ORD ERABLES [facility] BLOOD BANK LAB [address] [place] [address], [facility] [phone] * CULTURE WOUND+GRAM STAIN (11/14/2023 4:08 PM CDT) Only the most recent of14 resultswithin the time period is included. Culture No growth MALICK 11/17/2023 7:45 AM CDT [facility] Gram Stain Heavy Red blood cells 11/17/2023 7:45 AM CDT [facility] Gram Stain Light Polymorphonuclear cells 11/17/2023 7:45 AM CDT [facility] Gram Stain No organisms seen 024 7:45 AM CDT [facility] Microbiology [place] / Unknown Collection / Unknown 11/14/2023 4:08 PM CDT 11/14/2023 4:12 PM CDT Patrick Burgos DO LAB - MICROBIOLOGY O RDCARLINE Performing Organization Address City/[facility] Co de Phone Number [facility] MICROBIOLOG[facility] [address] [place] [address], [facility] [phone] * CULTURE ANAEROBE (11/14/2023 4:08 PM CDT) Only the most recent of13 resultswithin the time period is included. Culture No anaerobic organisms isolated MALICK 11/20/2023 3:[address] [facility] MICROBIOLOG[facility] Microbiology [place] / Unknown Collection / Unknown 11/14/2023 4:08 PM CDT 11/14/2023 4:12 PM CDT Patrick Burgos DO LAB - MICROBIOLOGY O DAPHNEY Performing Organization Address [facility] Co de Phone Number [facility]CRO[facility] [address] [place] [address], [facility] [phone] * LARYNGEAL MASK AIRWAY (11/14/2023 2:59 PM CDT) Narrative Rebecca Brady APRN-CRNA - 11/14/2023 2:59 PM CDT Rebecca Brady APRN-CRNA 11/14/2023 3:00 PM LMA Placement Procedure/LDA Note: Patient Location: OR. LMA Insertion Date/Time: 11/14/2023 2:50 PM Procedure: LMA Pretreatment: 100% O2 Induction: standard IV Patient position: sniffing. Mask Ventilation: not attempted Type: LMA Size: 4 Number of Attempts: 1. Cuff inflation pressure (CM H20): 20 Placement verified by: bilateral breath sounds, chest auscultation and CO2 monitor Dentition unchanged? Yes Procedure Start Time: 11/14/2023 2:50 PM. Staff Section Anesthesia Provider: Rebecca Brady APRN-CRNA, Performed the procedure Provider #1: Edy Angel MD. Edy Angel MD GENERAL ANESTHESIA O RDERABLES * EKG 12-LEAD (11/14/2023 2:00 PM CDT) Only the most recent of10 resultswithin the time period is included. Ventricular Rate 72 BPM [facility] MUSE Atrial Rate 72 BPM [facility] P-R Interval 162 ms [facility] QRS Duration ms 72 ms [facility] Q-T Interval ms 386 ms [facility] QTC Calculation (Bezet) 422 ms [facility] Calculated P [place] 67 degrees [facility] Calculated R [place] 21 degrees [facility] Calculated T [place] 37 degrees [facility] Interpretation EKG NORMAL SINUS RHYTHM POSSIBLE ANTERIOR INFARCT (CITED ON OR BEFORE 22-FEB-2023 ) ABNORMAL ECG WHEN COMPARED WITH ECG OF 22-FEB-2023 14:16, QUESTIONABL E CHANGE IN INITIAL FORCES OF ANTERIOR LEADS Confirmed by RADHA RAINEY MD ([id number]) on 11/14/2023 6:16:13 PM [facility] 11/14/2023 2:00 PM CDT 11/14/2023 6:16 PM CDT Edy Angel MD ECG ORDERABLES Performing Organization Address City/[facility]/ZIP Co de Phone Number [facility] M[facility] * TYPE + SCREEN PANEL (11/14/2023 8:13 AM CDT) Only the most recent of13 resultswithin the time period is included. [facility] Antibody Screen POS 9:01 AM CDT [facility] BLOOD [facility] LAB ABO Rh A POS 11/14/2023 9:01 AM CDT [facility] Blood Bank BLOOD SPECIMEN / Unknown Lab Venipuncture / Unknown 11/14/2023 8:13 AM CDT 11/14/2023 8:21 AM CDT Derrell Henry MD LAB - BLOOD BANK ORD ERABLES [facility] BLOOD [facility] [address] [place] [address], [facility] [phone] * NICOLE DIRECT (11/14/2023 8:13 AM CDT) Only the most recent of9 resultswithin the time period is included. Pathologist [facility] Direct Nicole (NIKOLAI) NEG 11/14/2023 9:21 AM CDT [facility]OD [facility] Blood Bank BLOOD SPECIMEN / Unknown Lab Venipuncture / Unknown 11/14/2023 8:13 AM CDT 11/14/2023 8:21 AM CDT Derrell Henry MD LAB - BLOOD BANK ORD ERABLES Performing Organization Address City/[facility]/ZIP Co de Phone Number [facility]LOOD [facility] [address] [place] [address], [facility] [phone] * ANTIBODY IDENTIFICATION (11/14/2023 8:13 AM CDT) Only the most recent of10 resultswithin the time period is included. Pathologist [facility] Antibody 1 POS, Anti-FyA 11/14/2023 10:37 AM CDT [facility] B[facility]OD [facility] LAB Blood Bank BLOOD SPECIMEN / Unknown Lab Venipuncture / Unknown 11/14/2023 8:13 AM CDT 11/14/2023 8:21 AM CDT Derrell Henry MD LAB - BLOOD BANK ORD ERABLES Performing Organization Address City/[facility]/ZIP Co de Phone Number [facility]OD [facility] [address] [place] [address], [facility] [phone] * VAS Right Venous Duplex Le (11/11/2023 9:26 AM CDT) Only the most recent of4 resultswithin the time period is included. Anatomical Region Laterality Modality Lower Extremity Intravascular Ul trasound 11/11/2023 8:36 AM CDT Narrative Procedure Note Griffin Herrera MD - 11/15/2023 Terence Brizuela MD VASCULAR LAB ORDERAB LES * HEPATITIS C AB SCREEN RFLX NAAT QUANT (11/10/2023 11:36 AM CDT) Pathologist [facility] Hepatitis C Antibody Non-react alia Non-reac tive 11/10/2023 12:29 PM CDT [facility] Comment:Hepatitis C Antibody screen indicates no [...] Brizuela MD LAB - CHEMISTRY DIAMANTE CARCAMO [address] [address], [facility] [phone] * HEPATITIS B SURFACE ANTIBODY (11/10/2023 11:36 AM CDT) Hepatitis B Virus Surface Antibody Non-react alia Non-react alia 11/10/2023 12:29 PM CDT [facility] Comment: < 8 mIU/mL Hepatitis B surface Antibody (HBsAb). Nonreactive for HBsAb - individual is considered not immune to Hepatitis B Virus infection. Hepatitis B Surface Antibody Quantitative 0.7 <8.0 mIU/mL 11/10/2023 12:29 PM CDT [facility] Comment: Hepatitis B Surface Antibody Numeric Result Interpretation: Nonreactive: <8.0 mIU/mL Indeterminate: 8.0 - 12.0 mIU/mL Reactive: >12.0 mIU/mL Blood BLOOD SPECIMEN / Unknown Lab Venipuncture / Unknown 11/10/2023 11:36 AM CDT 11/10/2023 11:40 AM CDT Terence Brizuela MD LAB - CHEMISTRY DIAMANTE CARCAMO [facility] [address] [place] [address], [place] [phone] * HEPATITIS B CORE ANTIBODY TOTAL (11/10/2023 11:36 AM CDT) HBc Antibody Total Non-reacti ve Non-reacti ve 11/10/2023 12:29 PM CDT [facility] Blood BLOOD SPECIMEN / Unknown Lab Venipuncture / Unknown 11/10/2023 11:36 AM CDT 11/10/2023 11:40 AM CDT Terence Brizuela MD LAB - CHEMISTRY DIAMANTE CARCAMO Performing Organization Address City/[facility]/ZIP Co de Phone Number [address] [address], [facility] [phone] * HEPATITIS B SURFACE ANTIGEN W RFLX CONFIRMATION (11/10/2023 11:36 AM CDT) Hepatitis B Virus Surface Antigen Non-reacti ve Non-reacti ve 11/10/2023 12:29 PM CDT [facility] Blood BLOOD SPECIMEN / Unknown Lab Venipuncture / Unknown 11/10/2023 11:36 AM CDT 11/10/2023 11:40 AM CDT Terence Brizuela MD LAB - CHEMISTRY DIAMANTE CARCAMO Performing Organization Address [facility]/ZIP Co de Phone Number [address] [address], [facility] [phone] * C DIFFICILE GDH AG + TOXIN A+B (11/10/2023 6:39 AM CDT) C difficile GDH antigen & toxin A/B NEGATIVE NEGATIVE 11/10/2023 9:[address] [facility] Stool STOOL SPECIMEN / Unknown Collection / Unknown 11/10/2023 6:39 AM CDT 11/10/2023 6:[address] [facility] - 11/10/2023 9:14 PM CDT Negative for toxigenic C. difficile Terence Brizuela MD LAB - MICROBIOLOGY O RDERABLES [facility] [address] [place] [address], [facility] [phone] * PTT [facility] (11/09/2023 9:55 AM CDT) Only the most recent of11 resultswithin the time period is included. APTT 36.3 23.0 - 38.4 Seconds 11/09/2023 10:39 AM CDT [facility] Comment:Suggested therapeuti c range for full dose I.V. unfractionated heparin therapy for venous thromboembolism is 71 to 109 seconds. Blood BLOOD SPECIMEN / Unknown Lab Venipuncture / Unknown 11/09/2023 9:55 AM CDT 11/09/2023 10:06 AM CDT Terence Brizuela MD LAB - COAGULATION OR DERABLES Performing Organization Address City/[facility] Co de Phone Number [address] [address], [facility] [phone] * PT-INR [facility] (11/09/2023 9:55 AM CDT) Only the most recent of11 resultswithin the time period is included. PT 14.0 12.1 - 14.8 Seconds 11/09/2023 10:39 AM CDT [facility] INR 1.1 See Comment 11/09/2023 10:39 AM CDT [facility] Comment:The suggested therap eutic range for standard coumadin (warfarin) therapy is an INR of 2.0-3.0. For high-risk patients (Mechanical Mitral Valve Prosthesis, etc.), the suggested prophylactic therapeutic range is an INR of 2.5-3.5. Blood BLOOD SPECIMEN / Unknown Lab Venipuncture / Unknown 11/09/2023 9:55 AM CDT 11/09/2023 10:06 AM CDT Terence Brizuela MD LAB - COAGULATION OR DERABLES Performing Organization Address [facility] Co de Phone Number [address] [address], [place] [phone] * (ABNORMAL) HEMOGLOBIN A1C (11/09/2023 9:55 AM CDT) Only the most recent of8 resultswithin the time period is included. Hemoglobin A1c 6.5(H) <=5.6 % 11/09/2023 12:42 PM CDT [facility] Estimated Average Glucose 140 mg/dL 11/09/2023 12:42 PM CDT [facility] Comment: HbA1c Interpretation: Normal : < 5.7% Pre-diabetes: 5.7-6.4% Diabetes: Equal to or greater than 6.5% Test results diagnostic of diabetes should be repeated for confirmation. Treatment target values recommended by ADA and other clinical organizations should be used to evaluate metabolic control in patients. Reference: [place] [employer] Association, Standards of Care in Diabetes -2020 In patients 70 years and older consider HbA1c target range of 7.0-7.5% (Reference: Silvio Elliott et al. SANDEEPDA. 2012) The Sebia assay for the measurement of HbA1c is a National Glycohemoglobin Standardization Program (NGSP) certified method. Blood BLOOD SPECIMEN / Unknown Lab Venipuncture / Unknown 11/09/2023 9:55 AM CDT 11/09/2023 10:07 AM CDT Terence Brizuela MD LAB - CHEMISTRY ORDE DONA [address] [address], [facility] [phone] * (ABNORMAL) ERYTHROCYTE SEDIMENTATION RATE (11/09/2023 9:55 AM CDT) Only the most recent of12 resultswithin the time period is included. Erythrocyte Sedimentation Rate Westergren 48(H) 0 - 30 MM/HR 11/09/2023 10:32 AM CDT [facility] Blood BLOOD SPECIMEN / Unknown Lab Venipuncture / Unknown 11/09/2023 9:55 AM CDT 11/09/2023 10:07 AM CDT Terence Brizuela MD LAB - HEMATOLOGY ORD ERABLES [address] [address], [facility] [phone] * CULTURE BLOOD (11/08/2023 9:46 PM CDT) Only the most recent of12 resultswithin the time period is included. Culture No growth day 5 MALICK 11/14/2023 2:[address] [facility] Blood PERIPHERAL BLOOD / Unknown Lab Venipuncture / Unknown 11/08/2023 9:46 PM CDT 11/08/2023 10:06 PM CDT Terence Brizuela MD LAB - MICROBIOLOGY O RDERABLES [facility] [address] [place] [address], [facility] [phone] * XR Chest 2Vw (11/08/2023 4:52 PM CDT) Anatomical Region Laterality Modality Chest Radiographic Katja ging 11/08/2023 6:48 PM CDT Narrative 11/08/2023 9:04 PM CDT PROCEDURE: XR CHEST 2VW, DATE/TIME OF EXAM: 11/08/2023 4:53 PM, LOCATION [facility] INDICATION: M25.561: Acute pain of right knee R68.83: Chills Ordering Provider Reason For Exam: infection COMPARISON: CXR 10/27/2023. FINDINGS/IMPRESSION: Left internal jugular accessed central venous catheter is removed. Surgical betty are again noted over left axillary and lateral chest wall. Mild bibasilar atelectasis. There is no confluent consolidation, pleural effusion, or pneumothorax. The cardiac silhouette is normal. There is atherosclerotic calcification of the aorta. Chronic fracture deformity of right sixth rib and sternum. Bilateral shoulder osteoarthritis again noted. Report dictated by Walker Gabriel MD (vice president tax). ICaity MD have personally reviewed and interpreted this examination/study. > Interpreting Provider: Caity Hoover MD on 11/08/2023 9:04 PM Procedure Note Caity Hoover MD - 11/08/2023 PROCEDURE: XR CHEST 2VW, DATE/TIME OF EXAM: 11/08/2023 4:53 PM, LOCATION [facility] INDICATION: M25.561: Acute pain of right knee R68.83: Chills Ordering Provider Reason For Exam: infection COMPARISON: CXR 10/27/2023. FINDINGS/IMPRESSION: Left internal jugular accessed central venous catheter is removed. Surgical betty are again noted over left axillary and lateral chestwall. Mild bibasilar atelectasis. There is no confluent consolidation, pleural effusion, or pneumothorax. The cardiac silhouette is normal. There is atherosclerotic calcificationof the aorta. Chronic fracture deformity of right sixth rib and sternum. Bilateral shoulder osteoarthritis again noted. Report dictated by Walker Gabriel MD (vice president tax). I, Caity Hoover MD have personally reviewed and interpreted this examination/study. > Interpreting Provider: Caity Hoover MD on 11/08/2023 9:04 PM Julienne Cheek MD DIAGNOSTIC IMAGING O RDERABLES * XR Knee Right 3Vw (11/08/2023 12:18 PM CDT) Only the most recent of2 resultswithin the time period is included. Anatomical Region Laterality Modality Lower Extremity Radiographic Katja ging 11/08/2023 12:2 7 PM CDT Impressions 11/08/2023 12:36 PM CDT IMPRESSION: Healing internally fixed fracture of the distal femur, unchanged in alignment. Interval removal of the 2 horizontal screws at the condyles. Diffuse soft tissue swelling. > Interpreting Provider: Mauri Caceres MD on 11/08/2023 12:36 PM Narrative 11/08/2023 12:36 PM CDT PROCEDURE: XR KNEE RIGHT 3VW DATE/TIME OF EXAM: 11/08/2023 12:18 PM CLINICAL INFORMATION: None relevant/not provided if blank. Indication: M25.561: Acute pain of right knee Additional History: Infection COMPARISON: Right femur x-rays 09/27/2023. FINDINGS: There is redemonstration of open reduction internal fixation of a distal femur fracture with an IM nail and screws. The proximal part of the nail is not included. Visible hardware is intact. There has been interval removal of 2 screws at the distal aspect of the femur. Osseous alignment is unchanged. Callus is forming. There is no acute fracture. There is no joint effusion. There is diffuse soft tissue swelling. Bone density is decreased. Procedure Note Mauri Caceres MD - 11/08/2023 PROCEDURE: XR KNEE RIGHT 3VW DATE/TIME OF EXAM: 11/08/2023 12:18 PM CLINICAL INFORMATION: None relevant/not provided if blank. Indication: M25.561: Acute pain of right knee Additional History: Infection COMPARISON: Right femur x-rays 09/27/2023. FINDINGS: There is redemonstration of open reduction internal fixation of a distal femur fracture with an IM nail and screws. The proximal part of the nailis not included. Visible hardware is intact. There has been intervalremoval of 2 screws at the distal aspect of the femur. Osseous alignment is unchanged. Callus is forming. There is no acute fracture. There is no joint effusion. There is diffuse soft tissue swelling. Bone density is decreased. IMPRESSION: Healing internally fixed fracture of the distal femur, unchanged in alignment. Interval removal of the 2 horizontal screws at the condyles. Diffuse soft tissue swelling. > Interpreting Provider: Mauri Caceres MD on 11/08/2023 12:36 PM Félix Castaneda PA-C DIAGNOSTIC IMAGING ORDERABLES * (ABNORMAL) C-REACTIVE PROTEIN (11/08/2023 11:44 AM CDT) Only the most recent of19 resultswithin the time period is included. C-Reactive Protein 1.7(H) <=0.5 mg/dL 11/08/2023 12:35 PM CDT [facility] Blood BLOOD SPECIMEN / Unknown Venipuncture / Unknown 11/08/2023 11:44 AM CDT 11/08/2023 11:49 AM CDT Félix Castaneda PA-C LAB - CHEM ISTRY ORDERABLES [facility] [address] [place] [address], [facility] [phone] * CENTRAL LINE PERFORMABLE (10/27/2023 10:24 AM CDT) Narrative Yoselin Briceño MD - 10/27/2023 10:24 AM CDT Yoselin Briceño MD 10/27/2023 10:27 AM Central Line Placement Procedure Note/LDA Patient Location: OR. Insertion Time: 10/27/2023 9:14 AM Procedure: central line > 5yr (96048) Procedure Section: Indications: IV access. Patient Sedated? Yes Sedation Type: general anesthesia Patient Position: supine Orientation: left. Site: internal jugular Skin Prep: Chloraprep. Local Anesthetic Used? No Site Identification: ultrasound guided with sterile sleeve and gel. Seldinger Technique Used? Yes Wire Verification: verified by ultrasound. Intravenous Verification: verified by ultrasound. Lumens: triple lumen Size: 16 G. Length (cm): 16. Secured at (cm): 14. Port Insertion: guidewire removed intact. Number of Attempts: 1. Procedure Tolerance: tolerated well Maximal Sterile Barriers: Cap, mask, sterile gloves, a large sterile sheet, hand hygiene, and chlorhexidine for cutaneous antisepsis (6030F) Procedure Start Time: 10/27/2023 9:00 AM. Procedure End Time: 10/27/2023 9:14 AM. Procedure Total Time: 14 minutes. Staff Section Anesthesia Provider: Yoselin Briceño MD, Performed the procedure Yoselin Briceño MD GENERAL ANESTHESIA O RDERABLES * XR Chest 1Vw Portable (10/27/2023 10:13 AM CDT) Only the most recent of7 resultswithin the time period is included. Anatomical Region Laterality Modality Chest Radiographic Katja ging 10/27/2023 4:12 PM CDT Impressions 10/27/2023 4:17 PM CDT IMPRESSION: There is a left internal jugular central catheter in the left brachiocephalic vein. There is atelectasis in the left lower lung with elevation of the left hemidiaphragm. There is no pleural effusion or pneumothorax. Heart size is normal. There are multiple surgical clips in the left chest wall. There is osteoarthritis of the glenohumeral joints. There are aortic calcifications. > Interpreting Provider: Avinash Muniz MD on 10/27/2023 4:17 PM Narrative 10/27/2023 4:17 PM CDT PROCEDURE: XR CHEST 1VW PORTABLE DATE/TIME OF EXAM: 10/27/2023 10:44 AM CLINICAL INFORMATION: None relevant/not provided if blank. Indication: S81.001S: Open knee wound, right, sequela Additional History: COMPARISON: 02/22/2023. Procedure Note Avinash Muniz MD - 10/27/2023 PROCEDURE: XR CHEST 1VW PORTABLE DATE/TIME OF EXAM: 10/27/2023 10:44 AM CLINICAL INFORMATION: None relevant/not provided if blank. Indication: S81.001S: Open knee wound, right, sequela Additional History: COMPARISON: 02/22/2023. IMPRESSION: There is a left internal jugular central catheter in the left brachiocephalic vein. There is atelectasis in the left lower lung with elevation of the left hemidiaphragm. There is no pleural effusion or pneumothorax. Heart size is normal. There are multiple surgical clips in the leftchest wall. There is osteoarthritis of the glenohumeral joints. There areaortic calcifications. > Interpreting Provider: Avinash Muniz MD on 10/27/2023 4:17 PM Yoselin Briceño MD DIAGNOSTIC IMAGING O RDERABLES * ETT LINE PERFORMABLE (10/27/2023 7:49 AM CDT) Narrative Federico Scott DO - 10/27/2023 7:49 AM CDT Federico Scott DO 10/27/2023 7:49 AM Endotracheal Tube Placement: Patient Location: OR. Intubation Event Date/Time: 10/27/2023 7:34 AM Procedure: intubation ([id number]) Procedure Section: Sedation: under general anesthesia. Indications for Airway Management: anesthesia Induction: standard IV Patient Position: sniffing Mask Ventilation: easy. Blade Type: Horace Blade Size: 3 Laryngoscopy View: grade 1 (full cords) Intubation Adjuncts: cricoid pressure and stylet Tube: endotracheal tube Placement: oral Tube type: cuff - inflated Tube Size (MM): 7 Depth of Insertion (CM): 22 Measured From: gums Cuff Inflated With: air Number of Attempts: 1. Placement Verified By: direct visualization, bilateral breath sounds, chest auscultation and CO2 monitor Tube secured with: adhesive tape. Dentition unchanged? Yes Difficult Airway? No. Procedure Start Time: 10/27/2023 7:34 AM. Staff Section Anesthesia Provider: Federico Scott DO, Performed the procedure Provider #1: Yoselin Briceño MD. Yoselin Briceño MD GENERAL ANESTHESIA O RDERABLES * FL GO SURGERY (10/10/2023 9:49 AM CDT) Only the most recent of6 resultswithin the time period is included. Narrative [facility] - 10/10/2023 9:50 AM CDT Fluoroscopy was used for this exam in the OR. Please see the Operative report. Patrick Burgos DO FLUOROSCOPY ORDERABL ES [facility] * ETT LINE PERFORMABLE (10/10/2023 9:28 AM CDT) Narrative Jessee Escalona DO - 10/10/2023 9:28 AM CDT Jessee Escalona DO 10/10/2023 10:11 AM Endotracheal Tube Placement: Patient Location: OR. Intubation Event Date/Time: 10/10/2023 9:21 AM Procedure: intubation ([id number]) Procedure Section: Sedation: under general anesthesia. Indications for Airway Management: anesthesia Induction: standard IV Patient Position: sniffing Mask Ventilation: easy. Blade Type: Horace Blade Size: 3 Intubation Adjuncts: stylet and cricoid pressure Placement: oral Tube type: cuff - inflated Depth of Insertion (CM): 23 Measured From: lips Cuff volume (mL): 10 Cuff Inflated With: air Number of Attempts: 1. Placement Verified By: CO2 detector, CO2 monitor and direct visualization Tube secured with: adhesive tape. Dentition unchanged? Yes (dentures removed) Difficult Airway? No. Procedure Start Time: 10/10/2023 9:21 AM. Staff Section Anesthesia Provider: Jessee Escalona DO Performed the procedure Provider #1: Jacques Cronin MD. Jacques Cronin MD GENERAL ANESTH ESIA ORDERABLES * XR FEMUR RIGHT 2VW (09/27/2023 10:06 AM CDT) Only the most recent of10 resultswithin the time period is included. Anatomical Region Laterality Modality Lower Extremity Radiographic Katja ging 09/27/2023 10:0 9 AM CDT Impressions 09/27/2023 10:09 AM CDT IMPRESSION: Distal femoral fracture with intramedullary nail fixation, unchanged in alignment. > Interpreting Provider: Humberto Winslow MD on 09/27/2023 10:09 AM Narrative 09/27/2023 10:09 AM CDT PROCEDURE: XR FEMUR RIGHT 2VW DATE/TIME OF EXAM: 09/27/2023 10:06 AM CLINICAL INFORMATION: None relevant/not provided if blank. Indication: S72.491D: Other closed fracture of distal end of right femur with routine healing, subsequent encounter Additional History: COMPARISON: 07/26/2023. TECHNIQUE: FINDINGS: Retrograde femoral intramedullary nail and screws redemonstrated for a distal femoral fracture. The hardware is intact and the alignment is unchanged. Callus has progressed. Osteopenia and vascular calcification are noted. Procedure Note Humberto Winslow MD - 09/27/2023 PROCEDURE: XR FEMUR RIGHT 2VW DATE/TIME OF EXAM: 09/27/2023 10:06 AM CLINICAL INFORMATION: None relevant/not provided if blank. Indication: S72.491D: Other closed fracture of distal end of right femur with routine healing, subsequent encounter Additional History: COMPARISON: 07/26/2023. TECHNIQUE: FINDINGS: Retrograde femoral intramedullary nail and screws redemonstrated for a distal femoral fracture. The hardware is intact and the alignment is unchanged. Callus has progressed. Osteopenia and vascular calcificationare noted. IMPRESSION: Distal femoral fracture with intramedullary nail fixation, unchanged in alignment. > Interpreting Provider: Humberto Winslow MD on 09/27/2023 10:09 AM Patrick Burgos DO DIAGNOSTIC IMAGING O RDERABLES * Rad Onc Aria Session Summary (09/23/2023 1:21 PM CDT) Course ID C1_LBreast &Nodes RAD ONC TREATMENT Course First Treatment Date 08/30/2023 2:32 PM RAD ONC TREATMENT Reference Point ID PTV_Lump_E val_L RAD ONC TREATMENT Reference Point Dosage Given to Date 48.0096127 336268 Gy RAD ONC TREATMENT Reference Point Session Dosage Given 3.57002780 Gy RAD ONC TREATMENT Plan ID #LBreast+N ds* RAD ONC TREATMENT Plan Fractions Treated to Date 15 RAD ONC TREATMENT Plan Total Fractions Prescribed 15 RAD ONC TREATMENT Plan Total Prescribed Dose 4800 cGy RAD ONC TREATMENT 09/23/2023 1:21 PM CDT Provider Unknown RADIATION ONCOLOGY O RDERABLES Performing Organization Address [facility] de Phone Number RAD ONC TREATMENT * Rad Onc Aria Session Summary (09/21/2023 1:42 PM CDT) Course ID C1_LBreast &Nodes RAD ONC TREATMENT Course First Treatment Date 08/30/2023 2:32 PM RAD ONC TREATMENT Reference Point ID PTV_Lump_E val_L RAD ONC TREATMENT Reference Point Dosage Given to Date 44.8704273 8 Gy RAD ONC TREATMENT Reference Point Session Dosage Given 3.34503857 Gy RAD ONC TREATMENT Plan ID #LBreast+N ds* RAD ONC TREATMENT Plan Fractions Treated to Date 14 RAD ONC TREATMENT Plan Total Fractions Prescribed 15 RAD ONC TREATMENT Plan Total Prescribed Dose 4800 cGy RAD ONC TREATMENT 09/21/2023 1:42 PM CDT Provider Unknown RADIATION ONCOLOGY O RDERABLES Performing Organization Address [facility] de Phone Number RAD ONC TREATMENT * Rad Onc Aria Session Summary (09/20/2023 1:46 PM CDT) Course ID C1_LBreast &Nodes RAD ONC TREATMENT Course First Treatment Date 08/30/2023 2:32 PM RAD ONC TREATMENT Reference Point ID PTV_Lump_E val_L RAD ONC TREATMENT Reference Point Dosage Given to Date 41.8497784 6 Gy RAD ONC TREATMENT Reference Point Session Dosage Given 3.67544235 Gy RAD ONC TREATMENT Plan ID #LBreast+N ds* RAD ONC TREATMENT Plan Fractions Treated to Date 13 RAD ONC TREATMENT Plan Total Fractions Prescribed 15 RAD ONC TREATMENT Plan Total Prescribed Dose 4800 cGy RAD ONC TREATMENT 09/20/2023 1:46 PM CDT Provider Unknown RADIATION ONCOLOGY O RDERABLES RAD ONC TREATMENT * Rad Onc Aria Session Summary (09/19/2023 1:42 PM CDT) Course ID C1_LBreast &Nodes RAD ONC TREATMENT Course First Treatment Date 08/30/2023 2:32 PM RAD ONC TREATMENT Reference Point ID PTV_Lump_E val_L RAD ONC TREATMENT Reference Point Dosage Given to Date 38.3338611 4 Gy RAD ONC TREATMENT Reference Point Session Dosage Given 3.75810105 Gy RAD ONC TREATMENT Plan ID #LBreast+N ds* RAD ONC TREATMENT Plan Fractions Treated to Date 12 RAD ONC TREATMENT Plan Total Fractions Prescribed 15 RAD ONC TREATMENT Plan Total Prescribed Dose 4800 cGy RAD ONC TREATMENT 09/19/2023 1:42 PM CDT Provider Unknown RADIATION ONCOLOGY O RDERABLES Performing Organization Address [facility] Co de Phone Number RAD ONC TREATMENT * Rad Onc Aria Session Summary (09/16/2023 2:04 PM CDT) Course ID C1_LBreast &Nodes RAD ONC TREATMENT Course First Treatment Date 08/30/2023 2:32 PM RAD ONC TREATMENT Reference Point ID PTV_Lump_E val_L RAD ONC TREATMENT Reference Point Dosage Given to Date 35.2707739 2 Gy RAD ONC TREATMENT Reference Point Session Dosage Given 3.15697803 Gy RAD ONC TREATMENT Plan ID #LBreast+N ds* RAD ONC TREATMENT Plan Fractions Treated to Date 11 RAD ONC TREATMENT Plan Total Fractions Prescribed 15 RAD ONC TREATMENT Plan Total Prescribed Dose 4800 cGy RAD ONC TREATMENT 09/16/2023 2:04 PM CDT Provider Unknown RADIATION ONCOLOGY O RDERABLES RAD ONC TREATMENT * Rad Onc Aria Session Summary (09/15/2023 1:44 PM CDT) Course ID C1_LBreast &Nodes RAD ONC TREATMENT Course First Treatment Date 08/30/2023 2:32 PM RAD ONC TREATMENT Reference Point ID PTV_Lump_E val_L RAD ONC TREATMENT Reference Point Dosage Given to Date 32.3432459 Gy RAD ONC TREATMENT Reference Point Session Dosage Given 3.89602635 Gy RAD ONC TREATMENT Plan ID #LBreast+N ds* RAD ONC TREATMENT Plan Fractions Treated to Date 10 RAD ONC TREATMENT Plan Total Fractions Prescribed 15 RAD ONC TREATMENT Plan Total Prescribed Dose 4800 cGy RAD ONC TREATMENT 09/15/2023 1:44 PM CDT Provider Unknown RADIATION ONCOLOGY O RDERABLES RAD ONC TREATMENT * Rad Onc Aria Session Summary (09/13/2023 1:37 PM CDT) Course ID C1_LBreast &Nodes RAD ONC TREATMENT Course First Treatment Date 08/30/2023 2:32 PM RAD ONC TREATMENT Reference Point ID PTV_Lump_E val_L RAD ONC TREATMENT Reference Point Dosage Given to Date 28.0932927 8 Gy RAD ONC TREATMENT Reference Point Session Dosage Given 3.72197793 Gy RAD ONC TREATMENT Plan ID #LBreast+N ds* RAD ONC TREATMENT Plan Fractions Treated to Date 9 RAD ONC TREATMENT Plan Total Fractions Prescribed 15 RAD ONC TREATMENT Plan Total Prescribed Dose 4800 cGy RAD ONC TREATMENT 09/13/2023 1:37 PM CDT Provider Unknown RADIATION ONCOLOGY O RDERABLES RAD ONC TREATMENT * Rad Onc Aria Session Summary (09/09/2023 1:44 PM CDT) Course ID C1_LBreast &Nodes RAD ONC TREATMENT Course First Treatment Date 08/30/2023 2:32 PM RAD ONC TREATMENT Reference Point ID PTV_Lump_E val_L RAD ONC TREATMENT Reference Point Dosage Given to Date 25.1473224 6 Gy RAD ONC TREATMENT Reference Point Session Dosage Given 3.89948011 Gy RAD ONC TREATMENT Plan ID #LBreast+N ds* RAD ONC TREATMENT Plan Fractions Treated to Date 8 RAD ONC TREATMENT Plan Total Fractions Prescribed 15 RAD ONC TREATMENT Plan Total Prescribed Dose 4800 cGy RAD ONC TREATMENT 09/09/2023 1:44 PM CDT Provider Unknown RADIATION ONCOLOGY O RDERABLES RAD ONC TREATMENT * Rad Onc Aria Session Summary (09/08/2023 1:47 PM CDT) Course ID C1_LBreast &Nodes RAD ONC TREATMENT Course First Treatment Date 08/30/2023 2:32 PM RAD ONC TREATMENT Reference Point ID PTV_Lump_E val_L RAD ONC TREATMENT Reference Point Dosage Given to Date 22.4001975 4 Gy RAD ONC TREATMENT Reference Point Session Dosage Given 3.46824294 Gy RAD ONC TREATMENT Plan ID #LBreast+N ds* RAD ONC TREATMENT Plan Fractions Treated to Date 7 RAD ONC TREATMENT Plan Total Fractions Prescribed 15 RAD ONC TREATMENT Plan Total Prescribed Dose 4800 cGy RAD ONC TREATMENT 09/08/2023 1:47 PM CDT Provider Unknown RADIATION ONCOLOGY O RDERABLES RAD ONC TREATMENT * Rad Onc Aria Session Summary (09/07/2023 2:34 PM CDT) Course ID C1_LBreast &Nodes RAD ONC TREATMENT Course First Treatment Date 08/30/2023 2:32 PM RAD ONC TREATMENT Reference Point ID PTV_Lump_E val_L RAD ONC TREATMENT Reference Point Dosage Given to Date 19.0862874 2 Gy RAD ONC TREATMENT Reference Point Session Dosage Given 3.47369193 Gy RAD ONC TREATMENT Plan ID #LBreast+N ds* RAD ONC TREATMENT Plan Fractions Treated to Date 6 RAD ONC TREATMENT Plan Total Fractions Prescribed 15 RAD ONC TREATMENT Plan Total Prescribed Dose 4800 cGy RAD ONC TREATMENT 09/07/2023 2:34 PM CDT Provider Unknown RADIATION ONCOLOGY O RDERABLES RAD ONC TREATMENT * Rad Onc Aria Session Summary (09/05/2023 1:50 PM CDT) Course ID C1_LBreast &Nodes RAD ONC TREATMENT Course First Treatment Date 08/30/2023 2:32 PM RAD ONC TREATMENT Reference Point ID PTV_Lump_E val_L RAD ONC TREATMENT Reference Point Dosage Given to Date 16.4577433 Gy RAD ONC TREATMENT Reference Point Session Dosage Given 3.14230445 Gy RAD ONC TREATMENT Plan ID #LBreast+N ds* RAD ONC TREATMENT Plan Fractions Treated to Date 5 RAD ONC TREATMENT Plan Total Fractions Prescribed 15 RAD ONC TREATMENT Plan Total Prescribed Dose 4800 cGy RAD ONC TREATMENT 09/05/2023 1:50 PM CDT Provider Unknown RADIATION ONCOLOGY O RDERABLES RAD ONC TREATMENT * Rad Onc Aria Session Summary (09/02/2023 11:25 AM CDT) Course ID C1_LBreast &Nodes RAD ONC TREATMENT Course First Treatment Date 08/30/2023 2:32 PM RAD ONC TREATMENT Reference Point ID PTV_Lump_E val_L RAD ONC TREATMENT Reference Point Dosage Given to Date 12.9549790 8 Gy RAD ONC TREATMENT Reference Point Session Dosage Given 3.89069727 Gy RAD ONC TREATMENT Plan ID #LBreast+N ds* RAD ONC TREATMENT Plan Fractions Treated to Date 4 RAD ONC TREATMENT Plan Total Fractions Prescribed 15 RAD ONC TREATMENT Plan Total Prescribed Dose 4800 cGy RAD ONC TREATMENT 09/02/2023 11:2 5 AM CDT Provider Unknown RADIATION ONCOLOGY O RDERABLES RAD ONC TREATMENT * Rad Onc Aria Session Summary (09/01/2023 1:36 PM CDT) Course ID C1_LBreast &Nodes RAD ONC TREATMENT Course First Treatment Date 08/30/2023 2:32 PM RAD ONC TREATMENT Reference Point ID PTV_Lump_E val_L RAD ONC TREATMENT Reference Point Dosage Given to Date 9.84100888 Gy RAD ONC TREATMENT Reference Point Session Dosage Given 3.93084471 Gy RAD ONC TREATMENT Plan ID #LBreast+N ds* RAD ONC TREATMENT Plan Fractions Treated to Date 3 RAD ONC TREATMENT Plan Total Fractions Prescribed 15 RAD ONC TREATMENT Plan Total Prescribed Dose 4800 cGy RAD ONC TREATMENT 09/01/2023 1:36 PM CDT Provider Unknown RADIATION ONCOLOGY O RDERABLES RAD ONC TREATMENT * Rad Onc Aria Session Summary (08/31/2023 11:41 AM CDT) Course ID C1_LBreast &Nodes RAD ONC TREATMENT Course First Treatment Date 08/30/2023 2:32 PM RAD ONC TREATMENT Reference Point ID PTV_Lump_E val_L RAD ONC TREATMENT Reference Point Dosage Given to Date 6.24188527 Gy RAD ONC TREATMENT Reference Point Session Dosage Given 3.53124215 Gy RAD ONC TREATMENT Plan ID #LBreast+N ds* RAD ONC TREATMENT Plan Fractions Treated to Date 2 RAD ONC TREATMENT Plan Total Fractions Prescribed 15 RAD ONC TREATMENT Plan Total Prescribed Dose 4800 cGy RAD ONC TREATMENT 08/31/2023 11:4 1 AM CDT Provider Unknown RADIATION ONCOLOGY O RDERABLES RAD ONC TREATMENT * Rad Onc Aria Session Summary (08/30/2023 2:38 PM CDT) Course ID C1_LBreast &Nodes RAD ONC TREATMENT Course First Treatment Date 08/30/2023 2:32 PM RAD ONC TREATMENT Reference Point ID PTV_Lump_E val_L RAD ONC TREATMENT Reference Point Dosage Given to Date 3.46868591 Gy RAD ONC TREATMENT Reference Point Session Dosage Given 3.42972576 Gy RAD ONC TREATMENT Plan ID #LBreast+N ds* RAD ONC TREATMENT Plan Fractions Treated to Date 1 RAD ONC TREATMENT Plan Total Fractions Prescribed 15 RAD ONC TREATMENT Plan Total Prescribed Dose 4800 cGy RAD ONC TREATMENT 08/30/2023 2:38 PM CDT Provider Unknown RADIATION ONCOLOGY O RDERABLES RAD ONC TREATMENT * PATHOLOGY TISSUE (07/22/2023 11:13 AM CDT) Only the most recent of9 resultswithin the time period is included. Case Report Surgical Pathology Report Case: [id number] Authorizing Provider: Sena Blum MD Collected: 07/22/2023 11:13 AM Ordering Location: [facility] Received: 07/22/2023 12:45 PM Pathologist: Pura Menjivar MD Specimens: A) - [place] Lymph Node, Left axillary sentinel lymph node B) - Breast Mast Smpl, left lumpecctomy. Long stitch lateral, short stitch superior, double stitch deep. C) - Margin, Aditional superior margin, stitch calhoun true margin D) - Margin, Aditional lateral margin, stitch calhoun true margin E) - Margin, Aditional inferior margin, stitch calhoun true margin F) - Margin, Aditional medial margin, stitch calhoun true margin G) - Margin, Aditional anterior margin, stitch calhoun true margin H) - Margin, Aditional posterior margin, stitch calhoun true margin 1:58 PM CDT [facility] Final Diagnosis Lymph nodes, left axillary sentinel, excision (A): - Four lymph nodes, negative for malignancy (0/4) Breast, left, lumpectomy (B): - Fibrosis and inflammation consistent with tumor bed, negative for residual carcinoma - Biopsy site identified Breast, additional superior margin, excision (C): - Benign breast tissue Breast, additional lateral margin, excision (D): - Benign breast tissue Breast, additional inferior margin, excision (E): - Benign breast tissue Breast, additional medial margin, excision (F): - Benign breast tissue Breast, additional anterior margin, excision (G): - Benign breast tissue Breast, additional posterior margin, excision (H): - Benign breast tissue 1:58 PM [facility] Microscopic Description and Comment Sections of sentinel lymph nodes (A) show treatment effect in two of four nodes, one associated with a biopsy clip. Histologic sections of the breast (B) show fibrotic breast tissue with chronic inflammatory infiltrate and focal usual ductal hyperplasia. No residual carcinoma is seen. 1:58 PM CDT [facility] Clinical History The patient is a 73-year-old female with history of metastatic left breast invasive ductal carcinoma (ER/IL/HER2 negative) s/p partial course of neoadjuvant chemotherapy. Operative procedure: Left lumpectomy with Magseed guidance, left axillary sentinel lymph node biopsy with Magseed. 4 1:58 PM [facility] Intraoperative Consultation A. Left axillary sentin+ is a fragment of adipose tissue measuring 4.6 x 3.1 x 1.8 cm. 2 lymph nodes are identified measuring 1.5 cm (containing surgical clip) and 0.9 cm. 2 additional firm areas of possible lymph nodes are palpated. The nodes and firm tissue are submitted for frozen as follows: FS A1: Largest node, bisected, FS A2: Second node, inked and bisected +2 pieces of firm tissue (possible nodes). Intraoperative diagnosis: FS A1-A2 left axillary sentinel lymph nodes: - 2 lymph nodes negative for malignancy, largest node with clip and treatment effect by Pura Menjivar MD 4 1:58 PM [facility] Gross Description The requisition and specimen(s) are identified with the patient's name Chyna Tenorio and received in formalin from intraoperative consultation, specimen A , is previously inked, sectioned and sampled consistent with the intraoperative note. The frozen section remnant of FSA1 and FSA2 is respectively submitted in cassettes A1 and A2. The remaining specimen is submitted in cassettes A3-A10. Received fresh and placed in formalin, specimen B , is a 22.0 g, 4.7 cm medial-lateral, 6.0 cm superior-inferior, 1.2 cm anterior-posterior lumpectomy. The specimen is oriented with a short suture designating superior, a long suture designating lateral, and double stitch designating deep. The tissue is inked as follows: Superior-blue, inferior-green, lateral-orange, medial-red, anterior-yellow, posterior-black. The specimen is sectioned into 7 sections. No distinct mass or lesion is identified. Sectioning shows a soft yellow-torres adipose tissue that surface. There is a 0.7 x 0.5 x 0.2 cm hemorrhagic cavity (slice 5+6) with Magseed (slice 5). Specimen is submitted entirely and sequentially as follows: G9-E8-ccriyl margin, perpendicular (slice #1) B4-B5-slice #2 B6-B7-slice #3 J8-J01-wbhkm #4 O25-H37-vaosz #5 with hemorrhagic cavity (E05-Dubzwza) F95-T27-xjfdl #6 with hemorrhagic cavity U36-A50-yltyjym margin, perpendicular (slice# 7) Specimen processing times on 07/22/2023 are as follows: Time of excision: 1131 Time received in Pathology: 1201 Time specimen is cut and placed in formalin: 1214 Total formalin fixation time: 2 days 7 hours 6 minutes End time 07/24/2023 1920 Total cold ischemia time: 43 minutes Received fresh and placed in formalin, specimen C , is a 0.7 g, 1.5 x 1.0 x 0.8 cm oriented soft, yellow-torres adipose tissue with stitch at true margin. The true margin is inked black. Specimen is perpendicularly sectioned to show soft yellow-torres adipose tissue. Specimen is submitted entirely in cassette C1. Specimen processing times on 07/22/2023 are as follows: Time of excision: 1141 Time received in Pathology: 1201 Time specimen is cut and placed in formalin: 1215 Total formalin fixation time: 2 days 7 hours 5 minutes End time 07/24/2023 1920 Total cold ischemia time: 34 minutes Received fresh and placed in formalin, specimen D , is a 0.5 g, 1.3 x 1.1 x 0.7 cm oriented soft, yellow-torres adipose tissue with stitch at true margin. The true margin is inked black. Specimen is perpendicularly sectioned to show soft yellow-torres adipose tissue. Specimen is submitted entirely in cassette D1. Specimen processing times on 07/22/2023 are as follows: Time of excision: 1142 Time received in Pathology: 1201 Time specimen is cut and placed in formalin: 1215 Total formalin fixation time: 2 days 7 hours 5 minutes End time 07/24/2023 1920 Total cold ischemia time: 33 minutes Received fresh and placed in formalin, specimen E , is a 0.6 g, 1.3 x 1.1 x 0.8 cm oriented soft, yellow-torres adipose tissue with stitch at true margin. The true margin is inked black. Specimen is perpendicularly sectioned to show soft yellow-torres adipose tissue. Specimen is submitted entirely in cassette E1. Specimen processing times on 07/22/2023 are as follows: Time of excision: 1142 Time received in Pathology: 1201 Time specimen is cut and placed in formalin: 1216 Total formalin fixation time: 2 days 7 hours 4 minutes End time 07/24/2023 1920 Total cold ischemia time: 34 minutes Received fresh and placed in formalin, specimen F , is a 0.7 g, 1.6 x 1.2 x 0.6 cm oriented soft, yellow-torres adipose tissue with stitch at true margin. The true margin is inked black. Specimen is perpendicularly sectioned to show soft yellow-torres adipose tissue. Specimen is submitted entirely in cassette F1. Specimen processing times on 07/22/2023 are as follows: Time of excision: 1142 Time received in Pathology: 1201 Time specimen is cut and placed in formalin: 1216 Total formalin fixation time: 2 days 7 hours 4 minutes End time 07/24/2023 1920 Total cold ischemia time: 34 minutes Received fresh and placed in formalin, specimen G , is a 0.2 g, 1.3 x 0.7 x 0.4 cm oriented soft, yellow-torres adipose tissue with stitch at true margin. The true margin is inked black. Specimen is perpendicularly sectioned to show soft yellow-torres adipose tissue. Specimen is submitted entirely in cassette G1. Specimen processing times on 07/22/2023 are as follows: Time of excision: 1143 Time received in Pathology: 1201 Time specimen is cut and placed in formalin: 1216 Total formalin fixation time: 2 days 7 hours 4 minutes End time 07/24/2023 1920 Total cold ischemia time: 33 minutes Received fresh and placed in formalin, specimen H , is a 2.0 g, 2.5 x 1.9 x 0.7 cm oriented soft, yellow-torres adipose tissue with stitch at true margin. The true margin is inked black. Specimen is perpendicularly sectioned to show soft yellow-torres adipose tissue. Specimen is submitted entirely in cassette H1-H2. AP Specimen processing times on 07/22/2023 are as follows: Time of excision: 1143 Time received in Pathology:1201 Time specimen is cut and placed in formalin: 1216 Total formalin fixation time: 2 days 7 hours 4 minutes End time 07/24/2023 1920 Total cold ischemia time: 33 minutes 1:58 PM [facility] Pathologist Location at [facility] 4 1:58 PM [facility] Disclaimer The performance characteristics of all immunohistochemical and indirect immunofluorescence stains (if any) cited in this report were determined by the Histopathology Laboratory of [facility]. Some of these tests were developed by our own laboratory and have not been cleared or approved by the US Food and Drug Administration. The FDA does not require this test to go through premarket FDA review. These tests are used for clinical purposes. They should not be regarded as investigational or for research. This laboratory is certified under the Clinical Laboratory Improvement Amendments (CLIA) as qualified to perform high complexity clinical laboratory testing. This case has been personally reviewed and interpreted by the attending (teaching) pathologist. 4 1:58 PM [facility] Synoptic Report INVASIVE CARCINOMA O F THE BREAST: Resection INVASIVE CARCINOMA OF THE BREAST: RESECTION - All Specimens 8th Edition - Protocol posted: 03/02/2023 SPECIMEN Procedure: Excision (less than total mastectomy) Specimen Laterality: Left TUMOR Tumor Site: Clock position : 1 o'clock Histologic Type: No residual invasive carcinoma Tumor Size: No residual invasive carcinoma Ductal Carcinoma In Situ (DCIS): Not identified Lymphatic and / or Vascular Invasion: Not identified Microcalcifications: Present in non-neoplastic tissue Treatment Effect in the Breast: No residual invasive carcinoma is present in the breast after presurgical therapy Treatment Effect in the Lymph Nodes: No lymph node metastases. Fibrous scarring or histiocytic aggregates, possibly related to prior lymph node metastases with pathologic complete response REGIONAL LYMPH NODES Regional Lymph Node Status: : All regional lymph nodes negative for tumor Total Number of Lymph Nodes Examined (sentinel and non-sentinel): 4 Number of [place] Nodes Examined: 4 pTNM CLASSIFICATION (AJCC 8th Edition) Reporting of pT, pN, and (when applicable) pM categories is based on information available to the pathologist at the time the report is issued. As per the AJCC (Chapter 1, 8th Ed.) it is the managing physician s responsibility to establish the final pathologic stage based upon all pertinent information, including but potentially not limited to this pathology report. Modified Classification: y pT Category: pT0 pN Category: pN0 N Suffix: (sn) SPECIAL STUDIES Estrogen Receptor (ER) Status: Negative Progesterone Receptor (PgR) Status: Negative HER2 (by immunohistochemistry) : Negative (Score 0) Testing Performed on 1:58 PM CDT [facility] Embedded Images 1:58 PM CDT [facility] Biopsy, Excision SPECIMEN FROM SENTINEL LYMPH NODE / Unknown 07/22/2023 11:13 AM CDT 07/22/2023 12:45 PM CDT Comment:Pre-op diagnosis: LEFT BREAST CANCER Biopsy, Excision SIMPLE MASTECTOMY / Unknown 07/22/2023 11:31 AM CDT 07/22/2023 2:38 PM CDT Comment:Pre-op diagnosis: LEFT BREAST CANCER Biopsy, Excision (Margin) 07/22/2023 11:41 AM CDT 07/22/2023 2:38 PM CDT Comment:Pre-op diagnosis: LEFT BREAST CANCER Biopsy, Excision (Margin) 07/22/2023 11:42 AM CDT 07/22/2023 2:38 PM CDT Comment:Pre-op diagnosis: LEFT BREAST CANCER Biopsy, Excision (Margin) 07/22/2023 11:42 AM CDT 07/22/2023 2:38 PM CDT Comment:Pre-op diagnosis: LEFT BREAST CANCER Biopsy, Excision (Margin) 07/22/2023 11:42 AM CDT 07/22/2023 2:38 PM CDT Comment:Pre-op diagnosis: LEFT BREAST CANCER Biopsy, Excision (Margin) 07/22/2023 11:43 AM CDT 07/22/2023 2:38 PM CDT Comment:Pre-op diagnosis: LEFT BREAST CANCER Biopsy, Excision (Margin) 07/22/2023 11:43 AM CDT 07/22/2023 2:38 PM CDT Comment:Pre-op diagnosis: LEFT BREAST CANCER Sena Blum MD LAB - PATHOLOGY/CYT OLOGY ORDERABLES [facility] [address] [phone] * ETT LINE PERFORMABLE (07/22/2023 11:01 AM CDT) Narrative Trinidad Maier Anes Asst - 07/22/2023 11:01 AM CDT Trinidad Maier Anes Asst 07/22/2023 11:02 AM Endotracheal Tube Placement: Patient Location: OR. Intubation Event Date/Time: 07/22/2023 9:57 AM Procedure: intubation (04112). Procedure Section: Sedation: under general anesthesia. Indications for Airway Management: anesthesia Induction: standard IV, rapid sequence and cricoid pressure Patient Position: sniffing Mask Ventilation: not attempted. Blade Type: Horace Blade Size: 3 Laryngoscopy View: grade 1 (full cords) Intubation Adjuncts: stylet Tube: endotracheal tube Placement: oral Tube type: cuff - inflated Tube Size (MM): 7 Depth of Insertion (CM): 20 Measured From: lips Cuff volume (mL): 8 Cuff Inflated With: air Number of Attempts: 1. Placement Verified By: direct visualization, bilateral breath sounds, chest auscultation and CO2 monitor Tube secured with: adhesive tape. Dentition unchanged? Yes Difficult Airway? No. Procedure Start Time: 07/22/2023 9:57 AM. Procedure End Time: 07/22/2023 9:58 AM. Procedure Total Time: 1 minutes. Staff Section Anesthesia Provider: Foreign Reddy MD Provider #1: Trinidad Maier Anes Asst, Performed the procedure. Foreign Reddy MD GENERAL ANESTHESIA O DAPHNEY * IV PLACEMENT PERFORMABLE (07/22/2023 10:58 AM CDT) Trinidad Garcia Anes Asst - 07/22/2023 10:58 AM CDT Trinidad Maier Anes Asst 07/22/2023 10:59 AM Peripheral IV Line Placement: Patient Location: OR Insertion Time: 07/22/2023 10:12 AM Procedure: IV start ([id number]). Procedure Section: Skin Prep: alcohol. Orientation: right Location: external jugular Catheter Gauge: 20 Number of Attempts: 1. Procedure Tolerance: performed while patient under general anesthesia. Procedure Start Time: 07/22/2023 10:07 AM. Procedure End Time: 07/22/2023 10:12 AM. Procedure Total Time: 5 minutes. Staff Section Anesthesia Provider: Foreign Reddy MD, Performed the procedure Foreign Reddy MD GENERAL ANESTHESIA O RDERABLES * IV PLACEMENT PERFORMABLE (07/22/2023 10:57 AM CDT) Trinidad Garcia Anes Asst - 07/22/2023 10:57 AM CDT Trinidad Maier Anes Asst 07/22/2023 10:58 AM Peripheral IV Line Placement: Patient Location: OR Insertion Time: 07/22/2023 10:14 AM Procedure: IV start ([id number]). Procedure Section: Skin Prep: alcohol. Orientation: left Location: saphenous Catheter Gauge: 18 Number of Attempts: 1. Adjuncts: ultrasound Procedure Tolerance: performed while patient under general anesthesia. Procedure Start Time: 07/22/2023 10:08 AM. Procedure End Time: 07/22/2023 10:14 AM. Procedure Total Time: 6 minutes. Staff Section Anesthesia Provider: Lobo Barrow MD, Performed the procedure Foreign Reddy MD GENERAL ANESTHESIA O RDERABLES * Peripheral Nerve Block (07/22/2023 9:39 AM CDT) Narrative Foreign Reddy MD - 07/22/2023 9:39 AM CDT Foreign Reddy MD 07/22/2023 9:43 AM Peripheral Nerve Block Procedure: Peripheral Nerve Block Patient Location: Pre-op Preprocedure Section: Indications: at surgeon's request and postop pain management. Pre-anesthetic Checklist: Patient identified, IV Checked, Site examined and clear, Risks and benefits discussed, Surgical consent verified, Monitors and equipment, Time-out performed, Informed consent obtained, Pre-op evaluation done, Questions answered/anesthesia questions answered, Allergies reviewed and Removal hand/wrist jewelry Monitors: Pulse Ox. Patient Condition: awake Patient Position: sitting Patient Sedated? No Procedure Section Laterality: left Block Performed: Erector Spinae Prep: Chloraprep Strerile Field: gloves, mask and hat/cap Needle Type: Echogenic insulated Needle Gauge: 22 Needle Length: 100 mm Ultrasound Guided? Yes Technique: in plane Visualization: Preliminary scan performed, Important anatomical structures identified, Needle tip visualized throughout the procedure, Target identified, No intraneural or intravascular puncture occurred, Ultrasound image in chart, Local visualized surrounding nerve on ultrasound and Hydrodissection utilized Injection Assessment: Slow fractionated injection Block Agents or Additives used? Yes Block agents used: bupivacaine 0.25% - EPINEPHrine 1:200,000 (PF) injection, 30 mL bupivacaine PF (MARCAINE PF) 0.25 % injection, 20 mL sodium chloride 0.9 % SOLN, 10 mL Procedure Tolerance: tolerated moderately Assessment: completed Procedure Start Time: 07/22/2023 9:28 AM. Procedure End Time: 07/22/2023 9:32 AM. Procedure Total Time: 4 minutes. Staff Section Anesthesia Provider: Foreign Reddy MD, Performed the procedure Foreign Reddy MD GENERAL ANESTHESIA O RDERABLES * NM SENTINEL NODE INJECTION (07/22/2023 9:01 AM CDT) Anatomical Region Laterality Modality Breast, Upper Extremity, Other [facility] 07/22/2023 1:57 PM CDT Impressions 07/22/2023 4:01 PM CDT IMPRESSION: Successful injection of 4 periareolar radioactive tracer in the left breast. No images were acquired. > Dictated by Monica Knapp MD (Vertical Mill Operator) 07/22/2023 1:57 PM I, Santos Max MD have personally reviewed and interpreted this examination/study. > Interpreting Provider: Santos Max MD on 07/22/2023 4:01 PM Narrative 07/22/2023 4:01 PM CDT PROCEDURE: NM SENTINEL NODE INJECTION, DATE/TIME OF EXAM: 07/22/2023 9:02 AM, LOCATION [facility] INDICATION: C50.412: Malignant neoplasm of upper-outer quadrant of left breast in female, estrogen receptor negative (HCC) Z17.1: Malignant neoplasm of upper-outer quadrant of left breast in female, estrogen receptor negative (HCC) COMPARISON: None. HISTORY: 73-year-old female patient with left breast mass. TECHNIQUE: The patient was injected with 4 separate periareolar interdermal injections in the left breast with a total of 989 uCi technetium-99m tilmanocept (Lymphoseek). FINDINGS: The risks and benefits of the lymphoscintigraphy injection were discussed with the patient and informed consent was obtained. The skin of the left breast was cleansed with iodine and ChloraPrep. A total of 4 periareolar intradermal injections were performed. The patient tolerated the injections well without immediate complication. The skin was covered with a bandage. Procedure Note Santos Max MD - 05/03/2024 PROCEDURE: NM SENTINEL NODE INJECTION, DATE/TIME OF EXAM: 49:02 AM, LOCATION [facility] INDICATION: C50.412: Malignant neoplasm of upper-outer quadrant of left breast in female, estrogen receptor negative (HCC) Z17.1: Malignant neoplasm of upper-outer quadrant of left breast infemale, estrogen receptor negative (HCC) COMPARISON: None. HISTORY: 73-year-old female patient with left breast mass. TECHNIQUE: The patient was injected with 4 separate periareolarinterdermal injections in the left breast with a total of 989 uCi technetium-99m tilmanocept (Lymphoseek). FINDINGS: The risks and benefits of the lymphoscintigraphy injectionwere discussed with the patient and informed consent was obtained. The skinof the left breast was cleansed with iodine and ChloraPrep. A total of 4 periareolar intradermal injections were performed. The patient tolerated the injections well without immediate complication. The skin was covered with a bandage. IMPRESSION: Successful injection of 4 periareolar radioactive tracer in the left breast. No images were acquired. > Dictated by Monica Knapp MD (Vertical Mill Operator) 07/22/2023 1:57 PM Santos Link MD have personally reviewed and interpreted this examination/study. > Interpreting Provider: Santos Max MD on 07/22/2023 4:01 PM Sena Blum MD NM ORDERABLES * MAMMO BREAST LEFT SPECIMEN (07/22/2023 8:13 AM CDT) Only the most recent of2 resultswithin the time period is included. Anatomical Region Laterality Modality Breast Left Mammography 07/22/2023 11:4 2 AM CDT Impressions 07/22/2023 12:07 PM CDT : The Hydromark barrel shaped biopsy clip which was localized, and the Magseed, are contained within the specimen. The twirl shaped biopsy clip which was localized, and the Magseed, are contained within the specimen. No call to the operating room was requested. Debo Link MD have personally reviewed and interpreted this examination/study. > Interpreting Provider: Debo Zafar MD on 07/22/2023 12:07 PM Narrative 07/22/2023 12:07 PM CDT EXAM: EXAM: SPECIMEN RADIOGRAPH FROM THE LEFT BREAST LOCATION: [facility] EXAM DATE: 07/22/2023 HISTORY: History of breast cancer for lumpectomy. 73-year-old female presents with recently diagnosed left breast cancer metastatic to the axilla presents for lumpectomy and axillary sentinel node biopsy with possible axillary dissection. COMPARISON: Comparison is made with relevant prior imaging in PACS. TECHNIQUE: 25 digital images obtained of the surgical specimen. FINDINGS: The Hydromark barrel shaped biopsy clip which was localized, and the Magseed, are contained within the specimen. The twirl shaped biopsy clip which was localized, and the Magseed, are contained within the specimen. Sena Blum MD MAMMO ORDERABLES * US SOFT TISSUE DEVICE PLACMNT (07/18/2023 11:48 AM CDT) Anatomical Region Laterality Modality Mammography 07/18/2023 11:4 1 AM CDT Impressions 07/18/2023 11:47 AM CDT IMPRESSION: 1. Technically successful, uncomplicated, ultrasound- guided Magseed placement in a lymph node with biopsy clip within it in the LEFT axilla. Please refer to separate report for left breast mag seed placement. 2. Magseed is directly adjacent to the twirl-shaped clip within the known metastatic lymph node in the LEFT axilla. Patient will follow-up with Dr. Blum regarding her upcoming breast surgery. > Interpreting Provider: Norma Carrasquillo MD on 07/18/2023 11:47 AM Narrative 07/18/2023 11:47 AM CDT EXAM: MAGSEED PLACEMENT / LOCALIZATION OF THE LEFT AXILLA USING ULTRASOUND GUIDANCE LOCATION: [facility] EXAM DATE: 07/18/2023 HISTORY: This is a 73-year-old female with history of left breast cancer diagnosed 11/01/2022 with metastatic disease to the axilla. Patient has been on neoadjuvant chemotherapy. Mag seed placement requested within the previously biopsied left axillary lymph node, demonstrating metastatic disease. A twirl clip is in this location. Please refer to separate report for left breast BX E placement. COMPARISON: Prior breast imaging back to 2022. Compare with the recent ultrasound 07/07/2023. TECHNIQUE AND FINDINGS: Preprocedure images were reviewed. The mildly enlarged left axillary lymph node and biopsy clip is noted in an appropriate location on the previous postbiopsy images performed. Lymph node currently measures up to 1 cm in size. The procedure and its risks, including bleeding and infection, as well as unsuccessful localization, and the potential benefits of the procedure were discussed with the patient, and written and verbal informed consent was obtained. After confirming the correct breast for Magseed placement, this breast was marked with a marking pen. Prior to the procedure a timeout was performed, including verification of the laterality of the breast for seed placement. The patient was placed in a supine position on the ultrasound table at the start of the procedure. Ultrasound was performed for location of the lesion. The lymph node with the biopsy clip in the axilla was localized with ultrasound guidance. The axilla was cleansed with ChloraPrep and draped in a sterile fashion. Local anesthesia was given with 5 cc of 1% Lidocaine, buffered with Sodium Bicarbonate within the skin and deeper soft tissues, to the level of the lesion. A 7 cm 18-gauge needle containing the Magseed for localization was then inserted from a lateral approach. Confirmatory ultrasound images were obtained demonstrating satisfactory position of the needle tip within the lymph node with the biopsy clip and the seed was deployed. Estimated blood loss: None The patient tolerated the procedure well and was discharged in good condition for her surgical operation planned a later date. The attending physician, Norma Carrasquillo MD, was present for and performed the entire procedure. Procedure Note Norma Carrasquillo MD - 07/18/2023 EXAM: MAGSEED PLACEMENT / LOCALIZATION OF THE LEFT AXILLA USINGULTRASOUND GUIDANCE LOCATION: [facility] EXAM DATE: 07/18/2023 HISTORY: This is a 73-year-old female with history of left breast cancer diagnosed 11/01/2022 with metastatic disease to the axilla. Patient hasbeen on neoadjuvant chemotherapy. Mag seed placement requested within the previously biopsied left axillary lymph node, demonstrating metastatic disease. A twirl clip is in this location. Please refer to separatereport for left breast BX E placement. COMPARISON: Prior breast imaging back to 2022. Compare with the recent ultrasound 07/07/2023. TECHNIQUE AND FINDINGS: Preprocedure images were reviewed. The mildly enlarged left axillary lymph node and biopsy clip is noted in an appropriate location on the previous postbiopsy images performed. Lymph node currently measures up to 1 cm in size. The procedure and its risks, including bleeding and infection, as wellas unsuccessful localization, and the potential benefits of the procedurewere discussed with the patient, and written and verbal informed consent was obtained. After confirming the correct breast for Magseed placement,this breast was marked with a marking pen. Prior to the procedure a timeoutwas performed, including verification of the laterality of the breast forseed placement. The patient was placed in a supine position on the ultrasound table atthe start of the procedure. Ultrasound was performed for location of the lesion. The lymph node with the biopsy clip in the axilla was localized with ultrasound guidance. The axilla was cleansed with ChloraPrep and draped in a sterile fashion. Local anesthesia was given with 5 cc of 1% Lidocaine, buffered withSodium Bicarbonate within the skin and deeper soft tissues, to the level ofthe lesion. A 7 cm 18-gauge needle containing the Magseed for localization was then inserted from a lateral approach. Confirmatory ultrasound images were obtained demonstrating satisfactory position of the needle tip withinthe lymph node with the biopsy clip and the seed was deployed. Estimated blood loss: None The patient tolerated the procedure well and was discharged in good condition for her surgical operation planned a later date. The attending physician, Norma Carrasquillo MD, was present for and performed the entire procedure. IMPRESSION: 1. Technically successful, uncomplicated, ultrasound- guided Magseed placement in a lymph node with biopsy clip within it in the LEFT axilla. Please refer to separate report for left breast mag seed placement. 2. Magseed is directly adjacent to the twirl-shaped clip within theknown metastatic lymph node in the LEFT axilla. Patient will follow-up with Dr. Blum regarding her upcoming breast surgery. > Interpreting Provider: Norma Carrasquillo MD on 07/18/2023 11:47 AM Sena Blum MD US ORDERABLES * (ABNORMAL) US BREAST LEFT NEEDLE LOC (07/18/2023 11:46 AM CDT) Anatomical Region Laterality Modality Breast Mammography 07/18/2023 11:3 4 AM CDT Impressions 07/18/2023 11:47 AM CDT : Technically successful, uncomplicated, ultrasound- guided Magseed placement in the LEFT breast, directly adjacent to the hydromark barrel clip at the site of the known cancer. Of note, no significant residual mass is identified in this region. Please refer to separate report for mag seed within the left axillary lymph node. Patient will follow-up with Dr. Blum regarding her upcoming breast surgery. > Interpreting Provider: Norma Carrasquillo MD on 07/18/2023 11:47 AM Narrative 07/18/2023 11:47 AM CDT EXAMS: 1. MAGSEED PLACEMENT / LOCALIZATION USING SONOGRAPHIC GUIDANCE AND 2. POST PROCEDURE MAMMOGRAM WITH TOMOSYNTHESIS- LEFT BREAST LOCATION: [facility] EXAM DATE: 07/18/2023 HISTORY: This is a 73-year-old female with history of left breast cancer, diagnosed 11/01/2022 with metastatic disease to left axilla. Patient has been on neoadjuvant chemotherapy. Mag seed placement requested prior to surgery. Please refer to separate report for left axillary mag seed placement. COMPARISON: Prior breast imaging studies back to 2022. TECHNIQUE AND FINDINGS: Preprocedure images were reviewed. The biopsy clip is noted in an appropriate location on the previous postbiopsy images performed. Of note, the previously noted 3 cm mass in the left breast 11:00 region is no longer identified on ultrasound. The height are marker clip is identified. The procedure and its risks, including bleeding and infection, as well as unsuccessful localization, and the potential benefits of the procedure were discussed with the patient, and written and verbal informed consent was obtained. After confirming the correct breast for Magseed placement, this breast was marked with a marking pen. Prior to the procedure a timeout was performed, including verification of the laterality of the breast for seed placement. The patient was placed in a supine position on the ultrasound table at the start of the procedure. Ultrasound was performed for location of the lesion. The hydromark clip in the 1 o'clock position, 11 cm from the nipple of the breast was localized with ultrasound guidance. The breast was cleansed with ChloraPrep and draped in a sterile fashion. Local anesthesia was given with 3 cc of 1% Lidocaine, buffered with Sodium Bicarbonate within the skin and deeper soft tissues, to the level of the lesion. A 7 cm 18-gauge needle containing the Magseed for localization was then inserted from a lateral approach. Confirmatory ultrasound images were obtained demonstrating satisfactory position of the needle tip just adjacent to the hydromark barrel clip and the seed was deployed. The patient was then transferred to the mammography room for a postprocedure mammogram to check placement of the MagSeed. Estimated blood loss: None Mammogram: A two-view LEFT mammogram with tomosynthesis (3D) and reconstructed C-view( 2D) images with CC and true lateral projections was obtained to check the MagSeed placement. Breast Composition: Category B: There are scattered areas of fibroglandular density. The Magseed is is in good position adjacent to the hydromark barrel shaped clip. Assessment: Postprocedure mammogram for marker placement. The patient tolerated the procedure well and was discharged in good condition for her surgical operation planned a later date. The attending physician, Norma Carrasquillo MD, was present for and performed the entire procedure. Sena Blum MD US ORDERABLES * MAMMO LEFT POST CLIP OR WIRE W CHARLES (07/18/2023 11:45 AM CDT) Only the most recent of2 resultswithin the time period is included. Anatomical Region Laterality Modality Breast Left Mammography 07/18/2023 11:3 4 AM CDT Impressions 07/18/2023 11:47 AM CDT : Technically successful, uncomplicated, ultrasound- guided Magseed placement in the LEFT breast, directly adjacent to the hydromark barrel clip at the site of the known cancer. Of note, no significant residual mass is identified in this region. Please refer to separate report for mag seed within the left axillary lymph node. Patient will follow-up with Dr. Blum regarding her upcoming breast surgery. > Interpreting Provider: Norma Carrasquillo MD on 07/18/2023 11:47 AM Narrative 07/18/2023 11:47 AM CDT EXAMS: 1. MAGSEED PLACEMENT / LOCALIZATION USING SONOGRAPHIC GUIDANCE AND 2. POST PROCEDURE MAMMOGRAM WITH TOMOSYNTHESIS- LEFT BREAST LOCATION: [facility] EXAM DATE: 07/18/2023 HISTORY: This is a 73-year-old female with history of left breast cancer, diagnosed 11/01/2022 with metastatic disease to left axilla. Patient has been on neoadjuvant chemotherapy. Mag seed placement requested prior to surgery. Please refer to separate report for left axillary mag seed placement. COMPARISON: Prior breast imaging studies back to 2022. TECHNIQUE AND FINDINGS: Preprocedure images were reviewed. The biopsy clip is noted in an appropriate location on the previous postbiopsy images performed. Of note, the previously noted 3 cm mass in the left breast 11:00 region is no longer identified on ultrasound. The height are marker clip is identified. The procedure and its risks, including bleeding and infection, as well as unsuccessful localization, and the potential benefits of the procedure were discussed with the patient, and written and verbal informed consent was obtained. After confirming the correct breast for Magseed placement, this breast was marked with a marking pen. Prior to the procedure a timeout was performed, including verification of the laterality of the breast for seed placement. The patient was placed in a supine position on the ultrasound table at the start of the procedure. Ultrasound was performed for location of the lesion. The hydromark clip in the 1 o'clock position, 11 cm from the nipple of the breast was localized with ultrasound guidance. The breast was cleansed with ChloraPrep and draped in a sterile fashion. Local anesthesia was given with 3 cc of 1% Lidocaine, buffered with Sodium Bicarbonate within the skin and deeper soft tissues, to the level of the lesion. A 7 cm 18-gauge needle containing the Magseed for localization was then inserted from a lateral approach. Confirmatory ultrasound images were obtained demonstrating satisfactory position of the needle tip just adjacent to the hydromark barrel clip and the seed was deployed. The patient was then transferred to the mammography room for a postprocedure mammogram to check placement of the MagSeed. Estimated blood loss: None Mammogram: A two-view LEFT mammogram with tomosynthesis (3D) and reconstructed C-view( 2D) images with CC and true lateral projections was obtained to check the MagSeed placement. Breast Composition: Category B: There are scattered areas of fibroglandular density. The Magseed is is in good position adjacent to the hydromark barrel shaped clip. Assessment: Postprocedure mammogram for marker placement. The patient tolerated the procedure well and was discharged in good condition for her surgical operation planned a later date. The attending physician, Norma Carrasquillo MD, was present for and performed the entire procedure. Sena Blum MD MAMMO ORDERABLES * (ABNORMAL) US BREAST LEFT LTD (Diagnostic , most commonly ordered) (07/07/2023 12:26 PM CDT) Anatomical Region Laterality Modality Breast Left Mammography 07/07/2023 11:5 1 AM CDT Impressions 07/07/2023 1:46 PM CDT : 1. Near-total interval resolution of the known cancer in the left breast 1:00 region, previously measuring up to 2.9 cm in size. Hydromark biopsy clip noted in this region. 2. Marked interval decrease in size of a left axillary lymph node with known metastatic disease and biopsy clip within this. RECOMMENDATION: Patient is scheduled to follow-up with Dr. Blum regarding the known left breast cancer. Dr. Carrasquillo dissussed the results with the patient. She will see Dr. Blum in the breast clinic today. OVERALL ASSESSMENT: BI-RADS CATEGORY 6: KNOWN BIOPSY PROVEN MALIGNANCY. 2 > Interpreting Provider: Norma Carrasquillo MD on 07/07/2023 1:46 PM Narrative 07/07/2023 1:46 PM CDT EXAMINATIONS: 1. LEFT DIGITAL DIAGNOSTIC MAMMOGRAM AND TOMOSYNTHESIS WITH CAD AND 2. LIMITED LEFT BREAST ULTRASOUND (COMBINED REPORT) LOCATION: [facility] EXAM DATE: 07/07/2023 HISTORY: This is a 73-year-old female with history of left breast cancer diagnosed 11/01/2022 with metastatic disease to the axilla. Patient has been on neoadjuvant chemotherapy. COMPARISON: Prior mammogram 11/01/2022 and 10/29/2022. MAMMOGRAM: TECHNIQUE: Diagnostic left mammography was performed. Tomosynthesis (3-D) and reconstructed synthetic 2-D images acquired. Left CC, MLO, true lateral and MLO spot compression views obtained. A total of 5 images were obtained. Computer-aided detection (CAD) was utilized. BREAST COMPOSITION: Category B: There are scattered areas of fibroglandular density. FINDINGS: Biopsy clip in the upper outer quadrant of the left breast. Previously noted 2.8 cm mass on mammography in the upper outer quadrant of the breast is not identified on the current study. Middle asymmetry about the biopsy site. Previously noted enlarged left axillary lymph nodes are not noted on the current study may be due to differences in technique. LIMITED LEFT BREAST ULTRASOUND: Targeted ultrasound performed of the left breast with attention to the site of known cancer in the 1:00 region, 11 cm from the nipple. Axilla also scanned. FINDINGS: At 1:00, 11 cm from the nipple is a 2.0 x 0.4 x 0.9 cm elongated hypoechoic nonmass lesion/flattened mass in a parallel orientation. Previously in this region, was a 2.9 x 2.6 x 1.8 cm known cancer. Previously noted diffuse skin thickening is no longer noted. Ultrasound axilla demonstrates a 1.0 x 0.5 cm hypoechoic mass/lymph node with biopsy clip artifact within it. Previously the cortex measured up to 2.5 cm in size by 4.2 cm in length and this is significantly decreased in size. Sena Blum MD US ORDERABLES * (ABNORMAL) MAMMO LEFT DIAGNOSTIC W CHARLES (07/07/2023 11:43 AM CDT) Anatomical Region Laterality Modality Breast Left Mammography 07/07/2023 11:5 1 AM CDT Impressions 07/07/2023 1:46 PM CDT : 1. Near-total interval resolution of the known cancer in the left breast 1:00 region, previously measuring up to 2.9 cm in size. Hydromark biopsy clip noted in this region. 2. Marked interval decrease in size of a left axillary lymph node with known metastatic disease and biopsy clip within this. RECOMMENDATION: Patient is scheduled to follow-up with Dr. Blum regarding the known left breast cancer. Dr. Carrasquillo dissussed the results with the patient. She will see Dr. Blum in the breast clinic today. OVERALL ASSESSMENT: BI-RADS CATEGORY 6: KNOWN BIOPSY PROVEN MALIGNANCY. 2 > Interpreting Provider: Norma Carrasquillo MD on 07/07/2023 1:46 PM Narrative 07/07/2023 1:46 PM CDT EXAMINATIONS: 1. LEFT DIGITAL DIAGNOSTIC MAMMOGRAM AND TOMOSYNTHESIS WITH CAD AND 2. LIMITED LEFT BREAST ULTRASOUND (COMBINED REPORT) LOCATION: [facility] EXAM DATE: 07/07/2023 HISTORY: This is a 73-year-old female with history of left breast cancer diagnosed 11/01/2022 with metastatic disease to the axilla. Patient has been on neoadjuvant chemotherapy. COMPARISON: Prior mammogram 11/01/2022 and 10/29/2022. MAMMOGRAM: TECHNIQUE: Diagnostic left mammography was performed. Tomosynthesis (3-D) and reconstructed synthetic 2-D images acquired. Left CC, MLO, true lateral and MLO spot compression views obtained. A total of 5 images were obtained. Computer-aided detection (CAD) was utilized. BREAST COMPOSITION: Category B: There are scattered areas of fibroglandular density. FINDINGS: Biopsy clip in the upper outer quadrant of the left breast. Previously noted 2.8 cm mass on mammography in the upper outer quadrant of the breast is not identified on the current study. Middle asymmetry about the biopsy site. Previously noted enlarged left axillary lymph nodes are not noted on the current study may be due to differences in technique. LIMITED LEFT BREAST ULTRASOUND: Targeted ultrasound performed of the left breast with attention to the site of known cancer in the 1:00 region, 11 cm from the nipple. Axilla also scanned. FINDINGS: At 1:00, 11 cm from the nipple is a 2.0 x 0.4 x 0.9 cm elongated hypoechoic nonmass lesion/flattened mass in a parallel orientation. Previously in this region, was a 2.9 x 2.6 x 1.8 cm known cancer. Previously noted diffuse skin thickening is no longer noted. Ultrasound axilla demonstrates a 1.0 x 0.5 cm hypoechoic mass/lymph node with biopsy clip artifact within it. Previously the cortex measured up to 2.5 cm in size by 4.2 cm in length and this is significantly decreased in size. Sena Blum MD MAMMO ORDERABLES * (ABNORMAL) URINE MICROSCOPIC ONLY REFLEX TO CULTURE (06/08/2023 10:03 AM CDT) Only the most recent of3 resultswithin the time period is included. Reflex Status Culture to follow 06/08/2023 10:38 AM CDT [facility] RBC UA 21-50(A) None Seen, 0-2, 3-5 /HPF 06/08/2023 10:38 AM CDT [facility] WBC UA >100(A) None Seen, 0-5 /HPF 06/08/2023 10:38 AM CDT [facility] Bacteria UA Trace(A) None /HPF 06/08/2023 10:38 AM [facility] Squamous Epithelial Cells UA 0-2 None Seen, 0-2, 3-5 /HPF 06/08/2023 10:38 AM [facility] Mucus UA 1+ /LPF 06/08/2023 10:38 AM [facility] Urine URINE SPECIMEN OBTAINED BY CLEAN CATCH PROCEDURE / Unknown Collection / Unknown 06/08/2023 10:03 AM CDT 06/08/2023 10:09 AM T Narrative [facility] - 06/08/2023 10:38 AM CDT Larry Patrick MD LAB - URINALYSIS ORDERABLES [address] [address], [facility] [phone] * (ABNORMAL) URINALYSIS REFLEX MICROSCOPIC REFLEX CULTURE (06/08/2023 10:03 AM CDT) Only the most recent of5 resultswithin the time period is included. Color UA Yellow Straw, Yellow 06/08/2023 10:33 AM [facility] Clarity UA Slt Cloudy(A) Clear 06/08/2023 10:33 AM [facility] Specific [place] UA 1.009 1.005 - 1.030 06/08/2023 10:33 AM [facility] pH UA 6.0 5.0 - 8.0 pH 06/08/2023 10:33 AM [facility] Protein UA Negative Negative 06/08/2023 10:33 AM [facility] Glucose UA Negative Negative 06/08/2023 10:33 AM [facility] Ketone UA Negative Negative 06/08/2023 10:33 AM [facility] Bilirubin UA Negative Negative 06/08/2023 10:33 AM [facility] Blood UA 1+(A) Negative 06/08/2023 10:33 AM [facility] Nitrite UA Negative Negative 06/08/2023 10:33 AM [facility] Leukocyte Esterase 3+(A) Negative 06/08/2023 10:33 AM [facility] Urobilinogen UA Negative Negative mg/dL 06/08/2023 10:33 AM CDT [facility] Urine URINE SPECIMEN OBTAINED BY CLEAN CATCH PROCEDURE / Unknown Collection / Unknown 06/08/2023 10:03 AM CDT 06/08/2023 10:09 AM CDT Narrative [facility] - 06/08/2023 10:33 AM CDT Larry Patrick MD LAB - URINALYSIS ORDERABLES Performing Organization Address City/[facility]/ZIP Co de Phone Number [facility] [address] [place] [address], [facility] [phone] * CULTURE URINE (06/08/2023 10:03 AM CDT) Only the most recent of3 resultswithin the time period is included. Pathologist [facility] Culture Urine No growth (<100 CFU/mL) MALICK 06/09/2023 3:[address] [facility] Urine URINE SPECIMEN OBTAINED BY CLEAN CATCH PROCEDURE / Unknown Collection / Unknown 06/08/2023 10:03 AM CDT 06/08/2023 10:38 AM CDT Larry Patrick MD LAB - MICROBIOLOG Y ORDERABLES Performing Organization Address City/[facility]/ZIP Co de Phone Number [facility] [address] [place] [address], [facility] [phone] * (ABNORMAL) RENAL FUNCTION PANEL (06/08/2023 4:08 AM CDT) Only the most recent of8 resultswithin the time period is included. BUN 13 7 - 26 mg/dL 06/08/2023 5:03 AM [facility] Creatinine 1.12(H) 0.56 - 0.96 mg/dL 06/08/2023 5:03 AM [facility] Sodium 141 136 - 145 mmol/L 06/08/2023 5:03 AM [facility] Potassium 4.2 3.5 - 4.5 mmol/L 06/08/2023 5:03 AM [facility] Chloride 110(H) 98 - 107 mmol/L 06/08/2023 5:03 AM [facility] CO2 25 22 - 29 mmol/L 06/08/2023 5:03 AM [facility] Glucose 135(H) 70 - 115 mg/dL 06/08/2023 5:03 AM [facility] Albumin 2.3(L) 3.4 - 5.0 g/dL 06/08/2023 5:03 AM [facility] Calcium 8.9 8.4 - 10.2 mg/dL 06/08/2023 5:03 AM [facility] Phosphorus 3.8 2.9 - 5.1 mg/dL 06/08/2023 5:03 AM [facility] Anion Gap 6 6 - 16 06/08/2023 5:03 AM [facility] BUN/Creatinine Ratio 12 7 - 23 06/08/2023 5:03 AM [facility] Osmolality Calculated 294 275 - 295 mOsm/kg 06/08/2023 5:03 AM [facility] eGFR by CKD-EPI 52(L) >=90 mL/min/1.7 3 m2 06/08/2023 5:03 AM [facility] Blood BLOOD SPECIMEN / Unknown Lab Venipuncture / Unknown 06/08/2023 4:08 AM CDT 06/08/2023 4:29 AM CDT Susan Gonzalez DO LAB - CHEMISTRY DIAMANTE CARCAMO [facility] Organization Address City/State/[facility] Co de Phone Number [address] [address], [facility] [phone] * VANCOMYCIN LEVEL RANDOM (06/07/2023 4:34 AM CDT) Only the most recent of5 resultswithin the time period is included. Vancomycin Random 14.1 Therapeutic Ranges not established for random specimens ug/mL 06/07/2023 6:30 AM [facility] Blood BLOOD SPECIMEN / Unknown Lab Venipuncture / Unknown 06/07/2023 4:34 AM CDT 06/07/2023 4:58 AM CDT Narrative [facility] - 06/07/2023 6:30 AM CDT See institution protocol. Dewey Johnson MD LAB - CHEMISTRY DIAMANTE CARCAMO [facility] [address] [place] [address], [place] [phone] * MRSA DNA PCR (06/06/2023 4:14 PM CDT) Only the most recent of2 resultswithin the time period is included. Pathologist [facility] MRSA DNA by PCR Not detected Not detected 06/06/2023 9:[address] [facility] Microbiology SPECIMEN FROM NASAL FOSSAE / Unknown Collection / Unknown 06/06/2023 4:14 PM CDT 06/06/2023 4:[address] [facility] - 06/06/2023 9:19 PM CDT Methicillin-resistant Staphylococcus aureus (MRSA) DNA is not detected (presumed not colonized with MRSA). Susan Gonzalez DO LAB - MICROBIOLOGY O RDERABLES Performing Organization Address City/[facility]/ZIP Co de Phone Number [facility] [address] [place] [address], [facility] [phone] * VAS BILATERAL VENOUS DUPLEX LE (06/06/2023 12:21 PM CDT) Only the most recent of2 resultswithin the time period is included. Anatomical Region Laterality Modality Lower Extremity Intravascular Ul trasound 06/06/2023 11:4 2 AM CDT Narrative Procedure Note Griffin Herrera MD - 06/06/2023 Chapito Lua MD VASCULAR LAB ORDERA BLES * VANCOMYCIN LEVEL TROUGH (06/06/2023 4:45 AM CDT) Only the most recent of14 resultswithin the time period is included. Vancomycin Trough 12.6 10.0 - 20.0 ug/mL 06/06/2023 5:27 AM CDT [facility] Blood BLOOD SPECIMEN / Unknown Lab Venipuncture / Unknown 06/06/2023 4:45 AM CDT 06/06/2023 4:55 AM CDT Narrative [facility] - 06/06/2023 5:27 AM CDT See institution protocol. Chapito Lua MD LAB - CHEMISTRY ORD ERABLES [facility] [address] [place] [address], [facility] [phone] * CT ANKLE RIGHT W CONTRAST (06/05/2023 11:43 AM CDT) Anatomical Region Laterality Modality Lower Extremity Computed Tomogra phy 06/05/2023 10:5 1 AM CDT Impressions 06/05/2023 1:20 PM CDT IMPRESSION: 1.Diffuse soft tissue edema and skin thickening predominantly in the dorsal aspect of the foot, unchanged compared to prior examination. No discrete fluid collection. No soft tissue gas. 2.Unchanged posttraumatic/postsurgical changes in the tibia and fibula with severe arthritis in the ankle which again could be post traumatic versus sequela of septic arthritis/chronic osteomyelitis. 3.No acute fracture or dislocation. The report was drafted by Loida Phipps MD (Vertical Mill Operator). ISandra MD have personally reviewed and interpreted this examination/study. > Interpreting Provider: Sandra Henriquez MD on 06/05/2023 1:20 PM Narrative 06/05/2023 1:20 PM CDT PROCEDURE: CT ANKLE RIGHT W CONTRAST, CT FOOT RIGHT W CONTRAST DATE/TIME OF EXAM: 06/05/2023 10:26 AM CLINICAL INFORMATION: None relevant/not provided if blank. Indication: L03.115: Cellulitis of right lower extremity Additional History: COMPARISON: Right foot x-ray on 06/05/[address] foot on 03/07/2023. TECHNIQUE: CT of the right ankle and foot was performed with intravenous contrast utilizing standard protocol. Contrast administration was complicated by infiltration of approximately 5 mL of Isovue-300 in the left wrist. Evaluation by the on-call vice president tax demonstrated swelling and mild tenderness at the infiltration site with normal and symmetric strength in both hands, 2+ symmetric radial pulses, and <2 seconds capillary refill. The patient was instructed to keep the arm elevated and to apply warm compresses as needed. The referring team was advised to monitor for signs and symptoms of compartment syndrome and to obtain a plastic surgery consultation if signs or symptoms develop. FINDINGS: Right ankle: No acute fracture or dislocation is seen. Redemonstrated post traumatic and surgical changes in the distal tibia and fibula with bone deformity and cortical irregularity, sclerosis and hardware tracts. Severe ankle arthritis, including severe joint space narrowing with subchondral sclerosis and cyst formation with erosive changes. Redemonstrated diffuse soft tissue edema with diffuse skin thickening, unchanged. Right foot: No acute fracture or dislocation. There is diffuse osteopenia. Severe arthritis of the ankle joint is redemonstrated as mentioned above. Calcaneal spur is seen. Diffuse soft tissue edema with skin thickening is seen, particularly in the dorsal aspect of the foot measuring up to 1.9 cm in thickness with more homogeneous enhancement compared to the prior study. No drainable fluid collection is seen. No soft tissue air is seen. Procedure Note Becca Henriquez MD - 06/05/2023 PROCEDURE: CT ANKLE RIGHT W CONTRAST, CT FOOT RIGHT W CONTRAST DATE/TIME OF EXAM: 06/05/2023 10:26 AM CLINICAL INFORMATION: None relevant/not provided if blank. Indication: L03.115: Cellulitis of right lower extremity Additional History: COMPARISON: Right foot x-ray on 06/05/[address] foot on 03/07/2023. TECHNIQUE: CT of the right ankle and foot was performed with intravenous contrast utilizing standard protocol. Contrast administration was complicated by infiltration of approximately 5 mL of Isovue-300 in the left wrist. Evaluation by the on-call vice president tax demonstrated swelling andmild tenderness at the infiltration site with normal and symmetric strengthin both hands, 2+ symmetric radial pulses, and <2 seconds capillary refill. The patient was instructed to keep the arm elevated and to apply warm compresses as needed. The referring team was advised to monitor forsigns and symptoms of compartment syndrome and to obtain a plastic surgery consultation if signs or symptoms develop. FINDINGS: Right ankle: No acute fracture or dislocation is seen. Redemonstrated post traumaticand surgical changes in the distal tibia and fibula with bone deformity and cortical irregularity, sclerosis and hardware tracts. Severe ankle arthritis, including severe joint space narrowing with subchondral sclerosis and cyst formation with erosive changes. Redemonstrated diffuse soft tissue edema with diffuse skin thickening, unchanged. Right foot: No acute fracture or dislocation. There is diffuse osteopenia. Severe arthritis of the ankle joint is redemonstrated as mentioned above. Calcaneal spur is seen. Diffuse soft tissue edema with skin thickening is seen, particularly inthe dorsal aspect of the foot measuring up to 1.9 cm in thickness with more homogeneous enhancement compared to the prior study. No drainable fluid collection is seen. No soft tissue air is seen. IMPRESSION: 1.Diffuse soft tissue edema and skin thickening predominantly in thedorsal aspect of the foot, unchanged compared to prior examination. No discrete fluid collection. No soft tissue gas. 2.Unchanged posttraumatic/postsurgical changes in the tibia and fibulawith severe arthritis in the ankle which again could be post traumatic versus sequela of septic arthritis/chronic osteomyelitis. 3.No acute fracture or dislocation. The report was drafted by Loida Phipps MD (Vertical Mill Operator). Sandra Link MD have personally reviewed and interpreted this examination/study. > Interpreting Provider: Sandra Henriquez MD on 06/05/2023 1:20 PM Kaylanun Gonzalez DO CT ORDERABLES * CT FOOT RIGHT W CONTRAST (06/05/2023 11:43 AM CDT) Only the most recent of3 resultswithin the time period is included. Anatomical Region Laterality Modality Ankle / Foot Computed Tomogra phy 06/05/2023 10:5 1 AM CDT Impressions 06/05/2023 1:20 PM CDT IMPRESSION: 1.Diffuse soft tissue edema and skin thickening predominantly in the dorsal aspect of the foot, unchanged compared to prior examination. No discrete fluid collection. No soft tissue gas. 2.Unchanged posttraumatic/postsurgical changes in the tibia and fibula with severe arthritis in the ankle which again could be post traumatic versus sequela of septic arthritis/chronic osteomyelitis. 3.No acute fracture or dislocation. The report was drafted by Loida Phipps MD (Vertical Mill Operator). Sandra Link MD have personally reviewed and interpreted this examination/study. > Interpreting Provider: Sandra Henriquez MD on 06/05/2023 1:20 PM Narrative 06/05/2023 1:20 PM CDT PROCEDURE: CT ANKLE RIGHT W CONTRAST, CT FOOT RIGHT W CONTRAST DATE/TIME OF EXAM: 06/05/2023 10:26 AM CLINICAL INFORMATION: None relevant/not provided if blank. Indication: L03.115: Cellulitis of right lower extremity Additional History: COMPARISON: Right foot x-ray on 06/05/[address] foot on 03/07/2023. TECHNIQUE: CT of the right ankle and foot was performed with intravenous contrast utilizing standard protocol. Contrast administration was complicated by infiltration of approximately 5 mL of Isovue-300 in the left wrist. Evaluation by the on-call vice president tax demonstrated swelling and mild tenderness at the infiltration site with normal and symmetric strength in both hands, 2+ symmetric radial pulses, and <2 seconds capillary refill. The patient was instructed to keep the arm elevated and to apply warm compresses as needed. The referring team was advised to monitor for signs and symptoms of compartment syndrome and to obtain a plastic surgery consultation if signs or symptoms develop. FINDINGS: Right ankle: No acute fracture or dislocation is seen. Redemonstrated post traumatic and surgical changes in the distal tibia and fibula with bone deformity and cortical irregularity, sclerosis and hardware tracts. Severe ankle arthritis, including severe joint space narrowing with subchondral sclerosis and cyst formation with erosive changes. Redemonstrated diffuse soft tissue edema with diffuse skin thickening, unchanged. Right foot: No acute fracture or dislocation. There is diffuse osteopenia. Severe arthritis of the ankle joint is redemonstrated as mentioned above. Calcaneal spur is seen. Diffuse soft tissue edema with skin thickening is seen, particularly in the dorsal aspect of the foot measuring up to 1.9 cm in thickness with more homogeneous enhancement compared to the prior study. No drainable fluid collection is seen. No soft tissue air is seen. Procedure Note Becca Henriquez MD - 06/05/2023 PROCEDURE: CT ANKLE RIGHT W CONTRAST, CT FOOT RIGHT W CONTRAST DATE/TIME OF EXAM: 06/05/2023 10:26 AM CLINICAL INFORMATION: None relevant/not provided if blank. Indication: L03.115: Cellulitis of right lower extremity Additional History: COMPARISON: Right foot x-ray on 06/05/[address] foot on 03/07/2023. TECHNIQUE: CT of the right ankle and foot was performed with intravenous contrast utilizing standard protocol. Contrast administration was complicated by infiltration of approximately 5 mL of Isovue-300 in the left wrist. Evaluation by the on-call vice president tax demonstrated swelling andmild tenderness at the infiltration site with normal and symmetric strengthin both hands, 2+ symmetric radial pulses, and <2 seconds capillary refill. The patient was instructed to keep the arm elevated and to apply warm compresses as needed. The referring team was advised to monitor forsigns and symptoms of compartment syndrome and to obtain a plastic surgery consultation if signs or symptoms develop. FINDINGS: Right ankle: No acute fracture or dislocation is seen. Redemonstrated post traumaticand surgical changes in the distal tibia and fibula with bone deformity and cortical irregularity, sclerosis and hardware tracts. Severe ankle arthritis, including severe joint space narrowing with subchondral sclerosis and cyst formation with erosive changes. Redemonstrated diffuse soft tissue edema with diffuse skin thickening, unchanged. Right foot: No acute fracture or dislocation. There is diffuse osteopenia. Severe arthritis of the ankle joint is redemonstrated as mentioned above. Calcaneal spur is seen. Diffuse soft tissue edema with skin thickening is seen, particularly inthe dorsal aspect of the foot measuring up to 1.9 cm in thickness with more homogeneous enhancement compared to the prior study. No drainable fluid collection is seen. No soft tissue air is seen. IMPRESSION: 1.Diffuse soft tissue edema and skin thickening predominantly in thedorsal aspect of the foot, unchanged compared to prior examination. No discrete fluid collection. No soft tissue gas. 2.Unchanged posttraumatic/postsurgical changes in the tibia and fibulawith severe arthritis in the ankle which again could be post traumatic versus sequela of septic arthritis/chronic osteomyelitis. 3.No acute fracture or dislocation. The report was drafted by Loida Phipps MD (Vertical Mill Operator). Sandra Link MD have personally reviewed and interpreted this examination/study. > Interpreting Provider: Sandra Henriquez MD on 06/05/2023 1:[address] PM [address] DO [address] ORDERABLES * (ABNORMAL) VANCOMYCIN LEVEL PEAK (06/05/2023 8:55 AM CDT) Only the most recent of4 resultswithin the time period is included. Vancomycin Peak 91.8(HH) 25.0 - 40.0 ug/mL 06/05/2023 10:26 AM CDT [facility] Blood BLOOD SPECIMEN / Unknown Venipuncture / Unknown 06/05/2023 8:55 AM CDT 06/05/2023 8:56 AM CDT Narrative [facility] - 06/05/2023 10:26 AM CDT See institution protocol. Data does not support the use of vancomycin peak concentration for efficacy. Chapito Lua MD LAB - CHEMISTRY ORD ERABLES [facility] [address] [place] [address], [facility] [phone] * XR FOOT RIGHT 3VW OR MORE (06/05/2023 1:05 AM CDT) Anatomical Region Laterality Modality Ankle / Foot Radiographic Katja ging 06/05/2023 1:10 AM CDT Narrative 06/05/2023 6:45 AM CDT PROCEDURE: XR TIBIA FIBULA RIGHT 2VW, XR FOOT RIGHT 3VW OR MORE, DATE/TIME OF EXAM: 06/05/2023 1:05 AM, LOCATION [facility] INDICATION: M79.671: Foot pain, right ADDITIONAL CLINICAL INFORMATION: Ordering Provider Reason For Exam: concern for infeciton COMPARISON: CT of the tib-fib 03/07/2023, CT of the foot 03/07/2023, x-ray of the foot and tib-fib 02/22/2023 FINDINGS/IMPRESSION: Right tibia/fibula: Remonstration of a distal femur fracture status post internal fixation with a intramedullary nail and screws. The hardware is intact. Redemonstration of posttraumatic and surgical changes in the distal fibula and tibia. No acute fracture or dislocation. Severe degenerative changes of the ankle joint similar to prior study. Bone density and texture are normal. Diffuse soft tissue swelling of the lower extremity. Right foot: The osseous structures are intact and well aligned without acute fracture or dislocation. Severe arthritis of the ankle joint. Moderate degenerative changes at the first MTP joint. There is plantar calcaneal spurring. The bones are diffusely demineralized. Diffuse soft tissue swelling is noted predominantly in the dorsum of the foot and there is suspicious small lucency within the soft tissue concerning for air pocket. Report dictated by Tray Ferreira MD (vice president tax). Cain Link MD have personally reviewed and interpreted this examination/study. > Interpreting Provider: Cain Vasquez MD on 06/05/2023 6:45 AM Procedure Note Cain Vasquez MD - 06/05/2023 PROCEDURE: XR TIBIA FIBULA RIGHT 2VW, XR FOOT RIGHT 3VW OR MORE,DATE/TIME OF EXAM: 06/05/2023 1:05 AM, LOCATION [facility] INDICATION: M79.671: Foot pain, right ADDITIONAL CLINICAL INFORMATION: Ordering Provider Reason For Exam: concern for infeciton COMPARISON: CT of the tib-fib 03/07/2023, CT of the foot 03/07/2023, x-ray of thefoot and tib-fib 02/22/2023 FINDINGS/IMPRESSION: Right tibia/fibula: Remonstration of a distal femur fracture status post internal fixationwith a intramedullary nail and screws. The hardware is intact. Redemonstration of posttraumatic and surgical changes in the distalfibula and tibia. No acute fracture or dislocation. Severe degenerative changesof the ankle joint similar to prior study. Bone density and texture are normal. Diffuse soft tissue swelling of the lower extremity. Right foot: The osseous structures are intact and well aligned without acutefracture or dislocation. Severe arthritis of the ankle joint. Moderatedegenerative changes at the first MTP joint. There is plantar calcaneal spurring. The bones are diffusely demineralized. Diffuse soft tissue swelling is noted predominantly in the dorsum of the foot and there is suspicious small lucency within the soft tissue concerning for air pocket. Report dictated by Tray Ferreira MD (vice president tax). Cain Link MD have personally reviewed and interpreted this examination/study. > Interpreting Provider: Cain Vasquez MD on 46:45 AM King Randall III, MD DIAGNOSTIC IMAGI NG ORDERABLES * XR TIBIA FIBULA RIGHT 2VW (06/05/2023 12:58 AM CDT) Only the most recent of3 resultswithin the time period is included. Anatomical Region Laterality Modality Lower Extremity Radiographic Katja ging 06/05/2023 1:10 AM CDT Narrative 06/05/2023 6:45 AM CDT PROCEDURE: XR TIBIA FIBULA RIGHT 2VW, XR FOOT RIGHT 3VW OR MORE, DATE/TIME OF EXAM: 06/05/2023 1:05 AM, LOCATION [facility] INDICATION: M79.671: Foot pain, right ADDITIONAL CLINICAL INFORMATION: Ordering Provider Reason For Exam: concern for infeciton COMPARISON: CT of the tib-fib 03/07/2023, CT of the foot 03/07/2023, x-ray of the foot and tib-fib 02/22/2023 FINDINGS/IMPRESSION: Right tibia/fibula: Remonstration of a distal femur fracture status post internal fixation with a intramedullary nail and screws. The hardware is intact. Redemonstration of posttraumatic and surgical changes in the distal fibula and tibia. No acute fracture or dislocation. Severe degenerative changes of the ankle joint similar to prior study. Bone density and texture are normal. Diffuse soft tissue swelling of the lower extremity. Right foot: The osseous structures are intact and well aligned without acute fracture or dislocation. Severe arthritis of the ankle joint. Moderate degenerative changes at the first MTP joint. There is plantar calcaneal spurring. The bones are diffusely demineralized. Diffuse soft tissue swelling is noted predominantly in the dorsum of the foot and there is suspicious small lucency within the soft tissue concerning for air pocket. Report dictated by Tray Ferreira MD (vice president tax). I, Cain Vasquez MD have personally reviewed and interpreted this examination/study. > Interpreting Provider: Cain Vasquez MD on 06/05/2023 6:45 AM Procedure Note Cain Vasquez MD - 06/05/2023 PROCEDURE: XR TIBIA FIBULA RIGHT 2VW, XR FOOT RIGHT 3VW OR MORE,DATE/TIME OF EXAM: 06/05/2023 1:05 AM, LOCATION [facility] INDICATION: M79.671: Foot pain, right ADDITIONAL CLINICAL INFORMATION: Ordering Provider Reason For Exam: concern for infeciton COMPARISON: CT of the tib-fib 03/07/2023, CT of the foot 03/07/2023, x-ray of thefoot and tib-fib 02/22/2023 FINDINGS/IMPRESSION: Right tibia/fibula: Remonstration of a distal femur fracture status post internal fixationwith a intramedullary nail and screws. The hardware is intact. Redemonstration of posttraumatic and surgical changes in the distalfibula and tibia. No acute fracture or dislocation. Severe degenerative changesof the ankle joint similar to prior study. Bone density and texture are normal. Diffuse soft tissue swelling of the lower extremity. Right foot: The osseous structures are intact and well aligned without acutefracture or dislocation. Severe arthritis of the ankle joint. Moderatedegenerative changes at the first MTP joint. There is plantar calcaneal spurring. The bones are diffusely demineralized. Diffuse soft tissue swelling is noted predominantly in the dorsum of the foot and there is suspicious small lucency within the soft tissue concerning for air pocket. Report dictated by Tray Ferreira MD (vice president tax). I, Cain Vasquez MD have personally reviewed and interpreted this examination/study. > Interpreting Provider: Cain Vasquez MD on 46:45 AM King Randall III, MD DIAGNOSTIC IMAGI NG ORDERABLES * IR CENTRAL LINE REMOVAL (05/25/2023 2:47 PM [employer]) Anatomical Region Laterality Modality X-Ray Angiograph y 05/25/2023 2:31 PM [employer] Impressions 05/25/2023 2:36 PM [employer] IMPRESSION: Successful removal of port-a-cath under fluoroscopic guidance. > Interpreting Provider: Tricia Lanza MD on 05/25/2023 2:36 PM Narrative 05/25/2023 2:36 PM [employer] PROCEDURE: IR CENTRAL LINE REMOVAL DATE/TIME OF EXAM: 05/25/2023 12:24 PM CLINICAL INFORMATION: None relevant/not provided if blank. Indication: T80.219A: Infection of venous access port, initial encounter Additional History: Real Estate Representative:Dave Christiansen Protective Signal Installer Helper/Attending: Tricia Lanza COMPARISON: None. FLUOROSCOPY DOSE: Reference air kerma (ka,r). Procedure: After informed consent, the patient was taken to the angiography suite and placed on the fluoroscopy table. She was noted to have exposed port-a-cath, with surrounding erythema. A bridge gang worker X-ray showed the port with the attached catheter in place. The Right chest was cleansed with chlorhexidine and draped in a sterile fashion. Local anesthetic was used to infiltrate the skin and subcutaneous tissue over the port. Blunt dissection was performed around the exposed port and was freed from scar tissue and removed from the subcutaneous pocket. A 3-0 pursestring Vicryl suture was placed around the catheter which was pulled out as the suture was tied to secure the catheter tunnel. The port pocket was packed with Iodoform gauze and covered with Telfa and Tegaderm. Instructed to have daily iodoform dressing changes until healing of the wound. The port and catheter were removed in their entirety and a post procedure bridge gang worker X-ray confirmed removal. The patient tolerated the procedure. I was present throughout the procedure. Procedure Note Tricia Lanza MD - 05/25/2023 PROCEDURE: IR CENTRAL LINE REMOVAL DATE/TIME OF EXAM: 05/25/2023 12:24 PM CLINICAL INFORMATION: None relevant/not provided if blank. Indication: T80.219A: Infection of venous access port, initial encounter Additional History: Real Estate Representative:Dave Christiansen Protective Signal Installer Helper/Attending: Tricia Lanza COMPARISON: None. FLUOROSCOPY DOSE: Reference air kerma (ka,r). Procedure: After informed consent, the patient was taken to the angiography suiteand placed on the fluoroscopy table. She was noted to have upfiaazfvll-[id number], with surrounding erythema. A bridge gang worker X-ray showed the port with theattached catheter in place. The Right chest was cleansed with chlorhexidine and draped in a sterile fashion. Local anesthetic was used to infiltrate the skin and subcutaneous tissue over the port. Blunt dissection wasperformed around the exposed port and was freed from scar tissue and removed fromthe subcutaneous pocket. A 3-0 pursestring Vicryl suture was placed aroundthe catheter which was pulled out as the suture was tied to secure thecatheter tunnel. The port pocket was packed with Iodoform gauze and covered with Telfaand Tegaderm. Instructed to have daily iodoform dressing changes untilhealing of the wound. The port and catheter were removed in their entirety and a postprocedure bridge gang worker X-ray confirmed removal. The patient tolerated the procedure. I was present throughout the procedure. IMPRESSION: Successful removal of port-a-cath under fluoroscopic guidance. > Interpreting Provider: Tricia Lanza MD on 05/25/2023 2:36 PM Tricia Lanza MD IR ORDERABLES * HEMOGLOBIN A1C - POINT OF CARE (AMB) [facility] (05/04/2023 4:43 PM [employer]) Hemoglobin A1c POCT 6.1 % [address] BLOOD SPECIMEN / Unknown 05/04/2023 4:43 PM [employer] Silvino Bro MD LAB - POINT OF CARE ORDERABLES Performing Organization Address [facility]/ZIP Co de Phone Number [address], [place] [address], [facility] [phone] * TSH REFLEX FREE T4 (04/22/2023 9:30 AM [employer]) Only the most recent of12 resultswithin the time period is included. TSH 4.339 0.350 - 4.940 uIU/mL 04/22/2023 10:29 AM [employer] [facility] Blood BLOOD SPECIMEN / Unknown Venipuncture / Unknown 04/22/2023 9:30 AM [employer] 04/22/2023 9:40 AM [employer] Redd Middleton MD LAB - CHEMISTRY DIAMANTE CARCAMO Performing Organization Address City/[facility]/ZIP Co de Phone Number [facility] [address] [place] [address] [phone] * VAS ARTERIAL ANKLE ARM INDEX (03/07/2023 1:01 PM [employer]) Only the most recent of2 resultswithin the time period is included. Anatomical Region Laterality Modality Ankle / Foot, Upper Extremity In travascular Ultrasound 03/07/2023 12:0 6 PM [employer] Narrative Procedure Note Quinn Lazcano MD - 03/07/2023 Lima Brown MD VASCULAR LAB ORDERAB LES * CT TIBIA FIBULA RIGHT W CONT (03/07/2023 12:04 PM [employer]) Only the most recent of3 resultswithin the time period is included. Anatomical Region Laterality Modality Lower Extremity Computed Tomogra phy 03/07/2023 1:08 PM [employer] Impressions 03/07/2023 1:35 PM [employer] IMPRESSION: 1.Peripherally enhancing fluid collection measuring up to 4.5 x 0.9 x 4 cm at the anterior aspect of the distal leg compatible with abscess. 2.Previous fluid collections associated with the skin at the dorsal aspect of the foot have resolved. There is soft tissue edema and heterogeneous enhancement in this region which may reflect cellulitis with phlegmon. 3.Unchanged posttraumatic/postsurgical changes in the tibia and fibula with severe arthritis in the ankle which again could be post traumatic versus septic arthritis/chronic osteomyelitis. 4.Diffuse subcutaneous edema. > Dictated by Loida Phipps M.D. (Resident). I, Humberto Winslow MD have personally reviewed and interpreted this examination/study. > Interpreting Provider: Humberto Winslow MD on 03/07/2023 1:35 PM Narrative 03/07/2023 1:35 PM [employer] PROCEDURE: CT TIBIA FIBULA RIGHT W CONT, CT FOOT RIGHT W CONTRAST DATE/TIME OF EXAM: 03/07/2023 12:04 PM CLINICAL INFORMATION: None relevant/not provided if blank. Indication: L03.119: Cellulitis of lower extremity, unspecified laterality L03.90: Cellulitis, unspecified cellulitis site Additional History: COMPARISON: CT of the right tibia/fibula and foot on 02/23/2023. TECHNIQUE: CT of the right tibia/fibula and foot was performed utilizing standard protocol. CT dose reduction technique was used, including Automated Exposure Control. IV CONTRAST: IOPAMIDOL 76 % IV SOLN:100 mL FINDINGS: Right tibia/fibula: Partially imaged internal fixation of the distal fibular fracture using an intramedullary nail and interlocking screws are redemonstrated. Again noted posttraumatic and surgical changes in the distal tibia and fibula with bone deformity and cortical irregularity, sclerosis and hardware tracts. Again noted severe ankle arthritis including severe joint space narrowing with subchondral sclerosis and cyst formation with erosive changes. Acute fracture or dislocation is seen. Diffuse soft tissue edema is again noted similar to the prior exam with diffuse skin thickening. There is a fluid collection with peripheral enhancement in the anterior aspect of the distal leg measuring up to 4.5 x 0.9 cm in the axial plane (series 4 image [id number]) and 4 cm proximal-distal (series 6 image [id number]). Right foot: There is diffuse osteopenia. There is no acute fracture or dislocation. Severe arthritis of the ankle joint is redemonstrated as mentioned above. Calcaneal spur is seen. Diffuse soft tissue edema with skin thickening is seen, particularly in the dorsal aspect of the foot with heterogeneous enhancement. Previously seen multiple superficial fluid collections arising from the skin at the dorsal aspect of the foot have resolved. No drainable fluid collection is seen. Procedure Note Humberto Winslow MD - 03/07/2023 PROCEDURE: CT TIBIA FIBULA RIGHT W CONT, CT FOOT RIGHT W CONTRAST DATE/TIME OF EXAM: 03/07/2023 12:04 PM CLINICAL INFORMATION: None relevant/not provided if blank. Indication: L03.119: Cellulitis of lower extremity, unspecifiedlaterality L03.90: Cellulitis, unspecified cellulitis site Additional History: COMPARISON: CT of the right tibia/fibula and foot on 02/23/2023. TECHNIQUE: CT of the right tibia/fibula and foot was performed utilizing standard protocol. CT dose reduction technique was used, including Automated ExposureControl. IV CONTRAST: IOPAMIDOL 76 % IV SOLN:100 mL FINDINGS: Right tibia/fibula: Partially imaged internal fixation of the distal fibular fracture usingan intramedullary nail and interlocking screws are redemonstrated. Again noted posttraumatic and surgical changes in the distal tibia and fibula with bone deformity and cortical irregularity, sclerosis and hardware tracts. Again noted severe ankle arthritis including severejoint space narrowing with subchondral sclerosis and cyst formation witherosive changes. Acute fracture or dislocation is seen. Diffuse soft tissue edema is again noted similar to the prior exam with diffuse skin thickening. There is a fluid collection with peripheral enhancement in the anterior aspect of the distal leg measuring up to 4.5x 0.9 cm in the axial plane (series 4 image [id number]) and 4 cmproximal-distal (series 6 image [id number]). Right foot: There is diffuse osteopenia. There is no acute fracture or dislocation. Severe arthritis of the ankle joint is redemonstrated as mentionedabove. Calcaneal spur is seen. Diffuse soft tissue edema with skin thickening is seen, particularly inthe dorsal aspect of the foot with heterogeneous enhancement. Previouslyseen multiple superficial fluid collections arising from the skin at thedorsal aspect of the foot have resolved. No drainable fluid collection is seen. IMPRESSION: 1.Peripherally enhancing fluid collection measuring up to 4.5 x 0.9 x 4cm at the anterior aspect of the distal leg compatible with abscess. 2.Previous fluid collections associated with the skin at the dorsalaspect of the foot have resolved. There is soft tissue edema and heterogeneous enhancement in this region which may reflect cellulitis with phlegmon. 3.Unchanged posttraumatic/postsurgical changes in the tibia and fibulawith severe arthritis in the ankle which again could be post traumatic versus septic arthritis/chronic osteomyelitis. 4.Diffuse subcutaneous edema. > Dictated by Loida Phipps M.D. (Resident). I, Humberto Winslow MD have personally reviewed and interpreted this examination/study. > Interpreting Provider: Humberto Winslow MD on 03/07/2023 1:35 PM Lima Brown MD CT ORDERABLES * FL SWALLOWING FUNCTION STUDY (02/28/2023 11:01 AM [employer]) Anatomical Region Laterality Modality Chest Radiographic Katja ging 02/28/2023 11:1 4 AM [employer] Impressions 02/28/2023 4:05 PM [employer] IMPRESSION: Fluoroscopy was provided for a procedure performed by Speech Therapy. Please see the Speech Therapy report for interpretation. Shen Link DO have personally reviewed and interpreted this examination/study. > Interpreting Provider: Shen Espinosa DO on 02/28/2023 4:05 PM Narrative 02/28/2023 4:05 PM [employer] PROCEDURE: FL SWALLOWING FUNCTION STUDY, DATE/TIME OF EXAM: 02/28/2023 11:04 AM, LOCATION [facility] INDICATION: R13.10: Dysphagia, unspecified type ADDITIONAL CLINICAL INFORMATION: Ordering Provider Reason For Exam: difficulty swallow Technologist Note: Additional: COMPARISON: None Fluoroscopy time: 78.6 seconds Procedure Note Shen Espinosa DO - 02/28/2023 PROCEDURE: FL SWALLOWING FUNCTION STUDY, DATE/TIME OF EXAM: 02/28/2023 11:04 AM, LOCATION [facility] INDICATION: R13.10: Dysphagia, unspecified type ADDITIONAL CLINICAL INFORMATION: Ordering Provider Reason For Exam: difficulty swallow Technologist Note: Additional: COMPARISON: None Fluoroscopy time: 78.6 seconds IMPRESSION: Fluoroscopy was provided for a procedure performed by Speech Therapy. Please see the Speech Therapy report for interpretation. Shen Link DO have personally reviewed and interpreted this examination/study. > Interpreting Provider: Shen Espinosa DO on 02/28/2023 4:05 PM Reddy Pizarro MD FLUOROSCOPY ORDERABL ES * (ABNORMAL) DIFFERENTIAL MANUAL (02/27/2023 4:26 AM [employer]) Only the most recent of2 resultswithin the time period is included. WBC (corrected for NRBC) 3.9 10 3/uL 02/27/2023 6:[address] [facility] Total Cell Count 100 02/28/20 23 6:[address] [facility] Neutrophils Absolute Manual 2.34 1.60 - 7.00 10 3/uL 02/27/2023 6:[address] [facility] Comment:(BANDS+SEGS) x WBC = NEUT # (ANC) Lymphocyte Absolute Manual 0.82(L) 1.10 - 3.90 10 3/uL 02/27/2023 6:[address] [facility] Monocytes Absolute Manual 0.66 0.26 - 1.07 10 3/uL 02/27/2023 6:[address] [facility] Band % Manual 1 0 - 10 % 02/27/2023 6:[address] [facility] Neutrophil % Manual 59 35 - 70 % 02/27/2023 6:[address] [facility] Lymphocyte % Manual 21 20 - 43 % 02/27/2023 6:[address] [facility] Monocytes % Manual 17(H) 5 - 13 % 02/27/2023 6:[address] [facility] Atypical Lymphocyte % Manual 2(H) 0 % 02/27/2023 6:[address] [facility] Platelet Estimate Decreased (A) Adequate 02/27/2023 6:[address] [facility] Macrocytosis Occasiona l(A) None 02/27/2023 6:[address] [facility] Ovalocytes Occasiona l(A) None 02/27/2023 6:[address] [facility] Blood BLOOD SPECIMEN / Unknown Venipuncture / Unknown 02/27/2023 4:26 AM [employer] 02/27/2023 4:36 AM [employer] Reddy Pizarro MD LAB - HEMATOLOGY ORD ERABLES [address] [address], [facility] [phone] * TRANSFUSE RED BLOOD CELL LEUKOREDUCED UNIT(S) (02/25/2023 1:35 AM [employer]) Reddy Pizarro MD NURSING - BLOOD PROD TRANSFUSION * XR ABDOMEN KUB PORTABLE (02/24/2023 10:16 PM [employer]) Only the most recent of2 resultswithin the time period is included. Anatomical Region Laterality Modality Abdomen Radiographic Katja ging 02/25/2023 9:32 AM [employer] Narrative 02/25/2023 4:24 PM [employer] PROCEDURE: XR ABDOMEN KUB PORTABLE DATE/TIME OF EXAM: 02/24/2023 10:16 PM CLINICAL INFORMATION: None relevant/not provided if blank. Indication: G93.40: Acute encephalopathy COMPARISON: None. FINDINGS/IMPRESSION: *Feeding tube follows the course of the esophagus below the diaphragm, with tip terminating at the level of gastric outlet/antrum. > Dictated by Kennedy Smith MD (Vertical Mill Operator) Yefri Link have personally reviewed and interpreted this examination/study. > Interpreting Provider: Yefri Parker on 02/25/2023 4:24 PM Procedure Note Yefri Parker MD - 02/25/2023 PROCEDURE: XR ABDOMEN KUB PORTABLE DATE/TIME OF EXAM: 02/24/2023 10:16 PM CLINICAL INFORMATION: None relevant/not provided if blank. Indication: G93.40: Acute encephalopathy COMPARISON: None. FINDINGS/IMPRESSION: *Feeding tube follows the course of the esophagus below the diaphragm,with tip terminating at the level of gastric outlet/antrum. > Dictated by Kennedy Smith MD (Vertical Mill Operator) Yefri Link have personally reviewed and interpreted this examination/study. > Interpreting Provider: Yefri Parker on 02/25/2023 4:24 PM Reddy Pizarro MD DIAGNOSTIC IMAGING O RDERABLES * TRIGLYCERIDES BLOOD (02/24/2023 2:57 AM [employer]) Only the most recent of2 resultswithin the time period is included. Triglycerides 116 <150 mg/dL 02/24/2023 3:33 AM [employer] [facility] Comment: ATP III Classification of Triglycerides: <150 mg/dL: Normal 150 - 199 mg/dL: Borderline High 200 - 400 mg/dL: High >500 mg/dL: Very High Blood BLOOD SPECIMEN / Unknown Venipuncture / Unknown 02/24/2023 2:57 AM [employer] 02/24/2023 3:08 AM [employer] Joey Lewis MD LAB - CHEMISTRY DIAMANTE CARCAMO [facility] [address] [place] [address], [facility] [phone] * XR ANKLE RIGHT 3VW OR MORE (02/23/2023 6:10 PM [employer]) Only the most recent of15 resultswithin the time period is included. Anatomical Region Laterality Modality Lower Extremity Radiographic Katja ging 02/24/2023 11:0 9 AM [employer] Impressions 02/24/2023 8:59 PM [employer] IMPRESSION: Advanced degenerative changes of the ankle joint space, likely posttraumatic. Report dictated by Dirk Rivera MD (vice president tax). I, Avinash Muniz MD have personally reviewed and interpreted this examination/study. > Interpreting Provider: Avinash Muniz MD on 02/24/2023 8:59 PM Narrative 02/24/2023 8:59 PM [employer] PROCEDURE: XR ANKLE RIGHT 3VW OR MORE, DATE/TIME OF EXAM: 02/23/2023 6:11 PM, LOCATION [facility] INDICATION: L03.90: Cellulitis, unspecified cellulitis site ADDITIONAL CLINICAL INFORMATION: Ordering Provider Reason For Exam: eval joint COMPARISON: CT of the right tibia/fibula and foot dated 02/23/2023. FINDINGS: No acute fracture or dislocation. Multiple circumscribed lucencies are present within the distal tibial and fibular shafts, likely secondary to prior internal fixation. A circumscribed lucency is present within the posterior aspect of the calcaneus, likely secondary to prior instrumentation. No acute fracture or dislocation is identified. There are severe degenerative changes of the tibiotalar and fibulotalar joint spaces with osteophyte formation and joint space narrowing all plantar and posterior calcaneal enthesophytes present. The osseous structures are diffusely demineralized. Diffuse soft tissue swelling is present. Procedure Note Avinash Muniz MD - 02/24/2023 PROCEDURE: XR ANKLE RIGHT 3VW OR MORE, DATE/TIME OF EXAM: 36:11 PM, LOCATION [facility] INDICATION: L03.90: Cellulitis, unspecified cellulitis site ADDITIONAL CLINICAL INFORMATION: Ordering Provider Reason For Exam: eval joint COMPARISON: CT of the right tibia/fibula and foot dated 02/23/2023. FINDINGS: No acute fracture or dislocation. Multiple circumscribed lucencies are present within the distal tibial and fibular shafts, likely secondary to prior internal fixation. A circumscribed lucency is present within the posterior aspect of the calcaneus, likely secondary to prior instrumentation. No acute fracture or dislocation is identified. Thereare severe degenerative changes of the tibiotalar and fibulotalar jointspaces with osteophyte formation and joint space narrowing all plantar and posterior calcaneal enthesophytes present. The osseous structures are diffusely demineralized. Diffuse soft tissue swelling is present. IMPRESSION: Advanced degenerative changes of the ankle joint space, likely posttraumatic. Report dictated by Dirk Rivera MD (vice president tax). IAvinash MD have personally reviewed and interpreted this examination/study. > Interpreting Provider: Avinash Muniz MD on 02/24/2023 8:59 PM Reddy Pizarro MD DIAGNOSTIC IMAGING O RDERABLES * CULTURE SPUTUM+GRAM STAIN (02/22/2023 4:12 PM [employer]) Culture Light normal oropharyngeal polo MALICK 02/24/2023 10:17 AM [employer] [facility] Gram Stain <10 per low power field Squamous epithelial cells 02/24/2023 10:17 AM DIRECT[employer] [facility] Gram Stain >= 25 per low power field Polymorphonuclear cells 02/24/2023 10:17 AM [employer] [facility] Gram Stain Rare Yeast 02/24/2023 10:17 AM [employer] [facility] Microbiology SPECIMEN FROM ENDOTRACHEAL TUBE / Unknown Collection / Unknown 02/22/2023 4:12 PM [employer] 02/22/2023 4:21 PM [employer] Reddy Pizarro MD LAB - MICROBIOLOGY O RDERABLES [facility] [address] [place] [phone] * XR FOOT RIGHT 2VW (02/22/2023 1:36 PM [employer]) Anatomical Region Laterality Modality Ankle / Foot Radiographic Katja ging 02/24/2023 7:21 AM [employer] Impressions 02/24/2023 7:21 PM [employer] IMPRESSION: No acute bone or joint abnormality. Report dictated by Tomi Crain DO (Vertical Mill Operator). Avinash Link MD have personally reviewed and interpreted this examination/study. > Interpreting Provider: Avinash Muniz MD on 02/24/2023 7:21 PM Narrative 02/24/2023 7:21 PM [employer] PROCEDURE: XR FOOT RIGHT 2VW, DATE/TIME OF EXAM: 02/22/2023 1:36 PM, LOCATION [facility] INDICATION: M86.171: Osteomyelitis of ankle, right, acute ([facility]) Ordering Provider Reason For Exam: osteo ; Technologist Note: ; Additional: COMPARISON: None. FINDINGS: The osseous structures are intact and well aligned without acute fracture or dislocation. There is osteoarthritis, most pronounced at the first MTP joint and incompletely visualized at the tibiotarsal joint. Bone density and texture are normal. Procedure Note Avinash Muniz MD - 02/24/2023 PROCEDURE: XR FOOT RIGHT 2VW, DATE/TIME OF EXAM: 02/22/2023 1:36 PM, LOCATION [facility] INDICATION: M86.171: Osteomyelitis of ankle, right, acute ([facility]) Ordering Provider Reason For Exam: osteo ; Technologist Note: ; Additional: COMPARISON: None. FINDINGS: The osseous structures are intact and well aligned without acutefracture or dislocation. There is osteoarthritis, most pronounced at the firstMTP joint and incompletely visualized at the tibiotarsal joint. Bone density and texture are normal. IMPRESSION: No acute bone or joint abnormality. Report dictated by Tomi Crain DO (Vertical Mill Operator). I, Avinash Muniz MD have personally reviewed and interpreted this examination/study. > Interpreting Provider: Avinash Muniz MD on 02/24/2023 7:21 PM Joey Lewis MD DIAGNOSTIC IMAGING O RDERABLES * LACTIC ACID BLOOD (02/22/2023 12:05 PM [employer]) Only the most recent of4 resultswithin the time period is included. Lactic Acid-Stat 0.8 <=2.0 mmol/L 02/22/2023 12:37 PM [employer] [facility] Blood BLOOD SPECIMEN / Unknown Venipuncture / Unknown 02/22/2023 12:05 PM [employer] 02/22/2023 12:15 PM [employer] Joey Lewis MD LAB - CHEMISTRY DIAMANTE CARCAMO [facility] [address] [place] [address], [facility] [phone] * (ABNORMAL) BLOOD GASES ART + COOX PANEL (02/22/2023 12:05 PM [facility]) pH Arterial 7.46(H) 7.35 - 7.45 pH 02/22/2023 12:[address] [facility] pO2 Arterial 78(L) 80 - 100 mmHg 02/22/2023 12:[address] [facility] pCO2 Arterial 38 35 - 45 mmHg 12:[address] [facility] HCO3 Arterial 27.0 20.0 - 30.0 mmol/L 02/22/2023 12:[address] [facility] BE Arterial 3.0(H) -2.0 - 2.0 mmol/L 02/22/2023 12:[address] [facility] Oxyhemoglobin Arterial 95.1 % 02/22/2023 12:[address] [facility] Dexoyhemoglobin (HHB) % 2.3 % 02/22/2023 12:[address] [facility] Methemoglobin 1.3 0.0 - 2.0 % 02/22/2023 12:[address] [facility] Carboxyhemoglobin 1.3 0.0 - 2.0 % 2022 12:[address] [facility] O2 Content Arterial 12.4 Interpret within clinical context ml/dL 02/22/2023 12:[address] [facility] Hemoglobin by COOX 9.2(L) 12.0 - 15.6 g/dL 02/22/2023 12:[address] [facility] O2 Saturation Arterial 98 90 - 100 % 02/22/2023 12:[address] [facility] FI O2 Arterial 40.0 % 02/22/2023 12:[address] [facility] Blood, arterial ARTERIAL BLOOD SPECIMEN / Unknown Arterial Puncture / Unknown 02/22/2023 12:05 PM [employer] 02/22/2023 12:11 PM [facility] - 02/22/2023 12:16 PM [employer] Carboxyhemoglobin Normal Concentration: Non-smokers: 0-2%; Smokers: 0-9%; Toxic: >20% Joey Lewis MD LAB - BLOOD GASES OR DERABLES [facility] [address] [place] [id number], [place] [phone] * TRANSFUSE RED BLOOD CELL LEUKOREDUCED UNIT(S) (02/08/2023 1:42 PM [employer]) Redd Middleton MD NURSING - BLOOD PROD TRANSFUSION * APHERESIS/TRANSFUSION ORDER (01/24/2023 3:15 PM [employer]) Narrative 01/24/2023 3:15 PM [employer] Ordered by an unspecified provider. Scanned Document NURSING - VITAL SIGN S AND ASSESSMENT * TRANSFUSE RED BLOOD CELL LEUKOREDUCED UNIT(S) (01/11/2023 5:49 PM CDT) Debbie Rivas DO NURSING - BLOOD PROD TRANSFUSION * CARDIAC EKG ORDER (01/06/2023 4:18 PM CDT) Only the most recent of4 resultswithin the time period is included. Narrative 01/06/2023 4:18 PM CDT Ordered by an unspecified provider. Scanned Document CARDIAC SERVICES ORD ERABLES * TRANSFUSE PLATELET PHERESIS UNIT(S) (01/06/2023 11:03 AM CDT) Patrick Burgos DO NURSING - BLOOD PROD TRANSFUSION * PREPARE PLATELET PHERESIS UNIT(S), 1 Units (01/06/2023 9:38 AM CDT) Only the most recent of2 resultswithin the time period is included. Unit Description LR PLT Phere B7 [facility] Unit ABO A [facility] Unit Rh POS [facility] Product Number [id number] [facility] Unit Donor # [id number] [facility] Unit Status transfused [facility] Product Code [id number] [facility] Blood Type Barcode 6200 [facility] Expiration Date S BLOOD BANK LAB Blood Bank BLOOD SPECIMEN / Unknown 01/04/2023 8:40 AM CDT Christopher Juárez MD LAB - BLOOD BANK ORD ERABLES [facility] [address] [place] [address], [facility] [phone] * TRANSFUSE RED BLOOD CELL LEUKOREDUCED UNIT(S) (01/06/2023 9:26 AM CDT) Bert Ramirez MD NURSING - BLOOD PRO D TRANSFUSION * XR KNEE RIGHT 2VW OR LESS (01/05/2023 1:16 PM CDT) Anatomical Region Laterality Modality Lower Extremity Radiographic Katja ging 01/05/2023 3:38 PM CDT Impressions 01/05/2023 6:37 PM CDT IMPRESSION: Interval placement of a femoral intramedullary nail with improved osseous alignment. Report dictated by Salvador Ware DO (vice president tax). ILuis MD have personally reviewed and interpreted this examination/study. > Interpreting Provider: Luis Vinson MD on 01/05/2023 6:37 PM Narrative 01/05/2023 6:37 PM CDT PROCEDURE: XR FEMUR RIGHT 2VW, XR KNEE RIGHT 2VW OR LESS, DATE/TIME OF EXAM: 01/05/2023 1:16 PM, LOCATION [facility] INDICATION: S72.491A: Other closed fracture of distal end of right femur, initial encounter ([facility]) ADDITIONAL CLINICAL INFORMATION: Ordering Provider Reason For Exam: eval fx Technologist Note: Additional: COMPARISON: Right femur and knee x-rays dated 01/04/2023 FINDINGS: Right femur: A splint overlies the distal thigh/proximal leg. Interval open reduction and internal fixation of the comminuted femoral fracture with an intramedullary nail and multiple interlocking screws. The hardware is intact and the osseous alignment is improved. Right knee: Interval placement of hardware as above. Moderate suprapatellar effusion. Procedure Note Luis Vinson MD - 01/05/2023 PROCEDURE: XR FEMUR RIGHT 2VW, XR KNEE RIGHT 2VW OR LESS, DATE/TIME OF EXAM: 01/05/2023 1:16 PM, LOCATION [facility] INDICATION: S72.491A: Other closed fracture of distal end of right femur, initial encounter ([facility]) ADDITIONAL CLINICAL INFORMATION: Ordering Provider Reason For Exam: eval fx Technologist Note: Additional: COMPARISON: Right femur and knee x-rays dated 01/04/2023 FINDINGS: Right femur: A splint overlies the distal thigh/proximal leg. Interval open reduction and internal fixation of the comminuted femoral fracture with an intramedullary nail and multiple interlocking screws. The hardware is intact and the osseous alignment is improved. Right knee: Interval placement of hardware as above. Moderate suprapatellareffusion. IMPRESSION: Interval placement of a femoral intramedullary nail with improvedosseous alignment. Report dictated by Salvador Ware DO (vice president tax). I, Luis Vinson MD have personally reviewed and interpreted this examination/study. > Interpreting Provider: Luis Vinson MD on 01/05/2023 6:37 PM Bert Ramirez MD DIAGNOSTIC IMAGING ORDERABLES * ETT LINE PERFORMABLE (01/05/2023 9:56 AM CDT) Narrative Trinidad Almendarez Anes Asst - 01/05/2023 9:56 AM CDT Trinidad Almendarez Anes Asst 01/05/2023 9:57 AM Endotracheal Tube Placement: Patient Location: OR. Intubation Event Date/Time: 01/05/2023 9:31 AM Procedure: intubation ([id number]). Procedure Section: Sedation: under general anesthesia. Indications for Airway Management: anesthesia Induction: standard IV Patient Position: supine Mask Ventilation: easy with oral airway. Blade Type: Horace Blade Size: 3 Laryngoscopy View: grade 1 (full cords) Intubation Adjuncts: stylet Tube: endotracheal tube Placement: oral Tube type: cuff - inflated Tube Size (MM): 7 Depth of Insertion (CM): 20 Measured From: lips Cuff Inflated With: air Number of Attempts: 1. Placement Verified By: direct visualization, bilateral breath sounds, chest auscultation and CO2 monitor Tube secured with: adhesive tape. Dentition unchanged? Yes Difficult Airway? No. Procedure Start Time: 01/05/2023 9:31 AM. Staff Section Anesthesia Provider: Trinidad Almendarez Anes Asst, Performed the procedure Provider #1: Christopher Juárez MD. Additional Comments: Atraumatic intubation with lips, teeth, and tongue in pre-op condition. Eyes taped prior to airway manipulation. . Christopher Juárez MD GENERAL ANESTHESIA O RDERABLES * VITAMIN D 25-HYDROXY (01/05/2023 2:01 AM CDT) Only the most recent of3 resultswithin the time period is included. Vitamin D, 25 Hydroxy 33.0 30.0 - 80.0 ng/mL 01/05/2023 3:09 AM CDT [facility] Comment: The recommendations for 25-Hydroxy Vitamin D clinical decision points are as follows: Deficient: <20.0 ng/mL Insufficient: 20.0 - 29.9 ng/mL Sufficient: 30.0 - 100.0 ng/mL Potential Toxicity: >100 ng/mL Reference: The Endocrine Society Clinical Practice Guidelines. 2011 If the 25-Hydroxy Vitamin D results are inconsitent with clinical evidence, it is recommended that follow-up testing using a method such as LC/MS/MS be performed to confirm the result. Blood BLOOD SPECIMEN / Unknown Lab Venipuncture / Unknown 01/05/2023 2:01 AM CDT 01/05/2023 2:14 AM CDT Enzo Savage MD LAB - CHEMISTR Y ORDERABLES Performing Organization Address City/State/[facility] Co de Phone Number [facility] [address] [place] [id number], [facility] [phone] * CT FEMUR RIGHT WO CONTRAST (01/04/2023 12:06 PM CDT) Anatomical Region Laterality Modality Lower Extremity Computed Tomogra phy 01/04/2023 12:1 5 PM CDT Impressions 01/04/2023 12:21 PM CDT IMPRESSION: Comminuted moderately displaced distal femoral fracture with intra-articular extension at the knee. > Interpreting Provider: Humberto Winslow MD on 01/04/2023 12:21 PM Narrative 01/04/2023 12:21 PM CDT PROCEDURE: CT FEMUR RIGHT WO CONTRAST DATE/TIME OF EXAM: 01/04/2023 12:07 PM CLINICAL INFORMATION: None relevant/not provided if blank. Indication: T14.90XA: Trauma Additional History: COMPARISON: Right femur x-rays dated 01/04/2023. TECHNIQUE: CT of the [right femur' was performed utilizing standard protocol. CT dose reduction technique was used, including Automated Exposure Control. FINDINGS: There is a comminuted moderately displaced fracture of the distal femoral shaft. The fracture is angulated by 25 degrees on the lateral view. A mildly displaced fracture line extends distally to the trochlea articular surface. There is a knee effusion with lipohemarthrosis. There is soft tissue edema/hemorrhage around the fracture site. Vascular calcification is noted. An area of cortical irregularity at the anterior aspect of the greater trochanter appears represent a bone spur rather than fracture (series 3 image 112). Procedure Note Humberto Winslow MD - 01/04/2023 PROCEDURE: CT FEMUR RIGHT WO CONTRAST DATE/TIME OF EXAM: 01/04/2023 12:07 PM CLINICAL INFORMATION: None relevant/not provided if blank. Indication: T14.90XA: Trauma Additional History: COMPARISON: Right femur x-rays dated 01/04/2023. TECHNIQUE: CT of the [right femur' was performed utilizing standard protocol. CT dose reduction technique was used, including Automated ExposureControl. FINDINGS: There is a comminuted moderately displaced fracture of the distalfemoral shaft. The fracture is angulated by 25 degrees on the lateral view. A mildly displaced fracture line extends distally to the trochleaarticular surface. There is a knee effusion with lipohemarthrosis. There is soft tissue edema/hemorrhage around the fracture site. Vascular calcificationis noted. An area of cortical irregularity at the anterior aspect of the greater trochanter appears represent a bone spur rather than fracture (series 3 image 112). IMPRESSION: Comminuted moderately displaced distal femoral fracture with intra-articular extension at the knee. > Interpreting Provider: Humberto Winslow MD on 01/04/2023 12:21 PM Jessee Rodriguez MD CT ORDERABLES * CT CHEST ABDOMEN PELVIS W CONT (01/04/2023 12:06 PM CDT) Anatomical Region Laterality Modality Chest, Abdomen, Pelvis Computed Tomography 01/04/2023 11:5 7 AM CDT Impressions 01/04/2023 2:35 PM CDT IMPRESSION: 1.Contour abnormality of the right sixth rib without definite fracture, which may represent chronic injury. Recommend correlation with point tenderness. 2.Scattered ground glass nodularities throughout both lungs, which may represent infectious/inflammatory etiology. 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 4.Stable appearance of scattered mesenteric fat stranding throughout the central abdomen. Stable size and morphology of central mesenteric enhancing soft tissues, likely representing small central mesenteric lymph nodes. However, given single phase-contrast examination, mesenteric hemorrhage could have a similar appearance (considered much less likely given this stable appearance allowing for differences in noncontrast comparison from prior CT PET). Recommend correlation with physical exam for mid abdominal pain. Correlation with hemoglobin and hematocrit is also recommended. 5.Sclerotic lesion within the T11 vertebral body measuring 1.3 cm. No FDG avid lesion was noted on prior CT PET. > Dictated by Kennedy Smith MD (Vertical Mill Operator) > Dictated by Kennedy Smith MD (Vertical Mill Operator) 01/04/2023 11:57 AM I, PRITI JENKINS MD have personally reviewed and interpreted this examination/study. > Interpreting Provider: PRITI JENKINS MD on 01/04/2023 2:35 PM Narrative 01/04/2023 2:35 PM CDT PROCEDURE: CT CHEST ABDOMEN PELVIS W CONT, DATE/TIME OF EXAM: 01/04/2023 12:07 PM, LOCATION [facility] INDICATION: T14.90XA: Trauma ADDITIONAL CLINICAL INFORMATION: Ordering Provider Reason For Exam: Trauma COMPARISON: PET/CT 11/25/2022. TECHNIQUE: CT of the chest, abdomen and pelvis with intravenous contrast. Coronal and sagittal reformatted images were submitted. DOSE: CTDI: 14 mGy, DLP: 931 mGy-cm The reported CTDIvol (mGy) and DLP (mGy-cm) values are generated from scan acquisition factors based on 32 cm (body) or 16 cm (head) phantoms and may underestimate or overestimate the actual patient dose based on patient size and other factors. FINDINGS: Partially visualized right chest placed Port-A-Cath with tip terminates in the superior vena cava. Lungs: Bilateral upper lobe predominant scattered groundglass nodular opacities throughout the lungs with linear atelectasis. Small bulla within the right medial lobe. Pleural spaces: No pneumothorax or pleural effusion. Mediastinum: The heart is borderline enlarged. The heart and great vessels of the chest are normal. No pericardial thickening or effusion. No tracheal collapse or deviation. Hepatobiliary: The hepatic length measures up to 18 cm. Normal liver attenuation. No gallbladder calculus, gallbladder wall thickening or biliary dilation. Pancreas: Atrophic pancreas without peripancreatic fluid collection. Spleen: Normal attenuation without mass. Adrenal glands: Normal in morphology without mass lesion. : Normal appearance of the kidneys with symmetric parenchymal enhancement. No bladder or deep pelvic soft tissue abnormality is seen. A 2 cm simple cysts within the superior pole of the right kidney. Contrast material is seen in the bilateral ureter and the bladder. GI: No obstruction or abnormal bowel wall thickening. Vascular: The aorta and inferior vena cava are normal. 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 Mild atherosclerotic calcification of the abdominal aorta and branch vessels. Retroaortic left renal vein. Other: No free air or abnormal fluid collection. There is a hazy scattered fat stranding with curvilinear contrast enhancement within the central mesentery, which is stable from prior PET/CT study on 11/25/2022 (series 4, image 73/87). Bones: Mild to moderate degenerative changes of the spine. Sclerotic lesion within the vertebral body of T11. Contour abnormality of the right sixth rib. Procedure Note Priti Jenkins MD - 01/04/2023 PROCEDURE: CT CHEST ABDOMEN PELVIS W CONT, DATE/TIME OF EXAM:01/04/2023 12:07 PM, LOCATION [facility] INDICATION: T14.90XA: Trauma ADDITIONAL CLINICAL INFORMATION: Ordering Provider Reason For Exam: Trauma COMPARISON: PET/CT 11/25/2022. TECHNIQUE: CT of the chest, abdomen and pelvis with intravenouscontrast. Coronal and sagittal reformatted images were submitted. DOSE: CTDI: 14 mGy, DLP: 931 mGy-cm The reported CTDIvol (mGy) and DLP (mGy-cm) values are generated fromscan acquisition factors based on 32 cm (body) or 16 cm (head) phantoms andmay underestimate or overestimate the actual patient dose based on patientsize and other factors. FINDINGS: Partially visualized right chest placed Port-A-Cath with tip terminatesin the superior vena cava. Lungs: Bilateral upper lobe predominant scattered groundglass nodular opacities throughout the lungs with linear atelectasis. Small bullawithin the right medial lobe. Pleural spaces: No pneumothorax or pleural effusion. Mediastinum: The heart is borderline enlarged. The heart and greatvessels of the chest are normal. No pericardial thickening or effusion. Notracheal collapse or deviation. Hepatobiliary: The hepatic length measures up to 18 cm. Normal liver attenuation. No gallbladder calculus, gallbladder wall thickening or biliary dilation. Pancreas: Atrophic pancreas without peripancreatic fluid collection. Spleen: Normal attenuation without mass. Adrenal glands: Normal in morphology without mass lesion. : Normal appearance of the kidneys with symmetric parenchymal enhancement. No bladder or deep pelvic soft tissue abnormality is seen. A2 cm simple cysts within the superior pole of the right kidney. Contrast material is seen in the bilateral ureter and the bladder. GI: No obstruction or abnormal bowel wall thickening. Vascular: The aorta and inferior vena cava are normal. Moderate tosevere celiac axis artery stenosis. Mild atherosclerotic calcification of the abdominal aorta and branch vessels. Retroaortic left renal vein. Other: No free air or abnormal fluid collection. There is a hazyscattered fat stranding with curvilinear contrast enhancement within the central mesentery, which is stable from prior PET/CT study on 11/25/2022 (series4, image 73/87). Bones: Mild to moderate degenerative changes of the spine. Scleroticlesion within the vertebral body of T11. Contour abnormality of the right sixth rib. IMPRESSION: 1.Contour abnormality of the right sixth rib without definite fracture, which may represent chronic injury. Recommend correlation with point tenderness. 2.Scattered ground glass nodularities throughout both lungs, which may represent infectious/inflammatory etiology. 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 4.Stable appearance of scattered mesenteric fat stranding throughout the central abdomen. Stable size and morphology of central mesentericenhancing soft tissues, likely representing small central mesenteric lymph nodes. However, given single phase-contrast examination, mesenteric hemorrhage could have a similar appearance (considered much less likely given this stable appearance allowing for differences in noncontrast comparisonfrom prior CT PET). Recommend correlation with physical exam for midabdominal pain. Correlation with hemoglobin and hematocrit is also recommended. 5.Sclerotic lesion within the T11 vertebral body measuring 1.3 cm. NoFDG avid lesion was noted on prior CT PET. > Dictated by Kennedy Smith MD (Vertical Mill Operator) > Dictated by Kennedy Smith MD (Vertical Mill Operator) 01/04/2023 11:57 AM PRITI Link MD have personally reviewed and interpreted this examination/study. > Interpreting Provider: PRITI JENKINS MD on 01/04/2023 2:35 PM Jessee Rodriguez MD CT ORDERABLES * CT LUMBAR SPINE WO CONTRAST (01/04/2023 12:06 PM CDT) Anatomical Region Laterality Modality Spine Computed Tomogra phy 01/04/2023 1:1 7 PM CDT Impressions 01/04/2023 7:10 PM CDT IMPRESSION: 1.No acute intracranial process. 2.No acute fracture of the cervical, thoracic or lumbar spine within the limits of the study. Multilevel mild vertebral height loss predominantly involving T10 and T9 and T7 vertebral bodies most likely chronic. Multilevel mild to moderate degenerative changes as described above. Report dictated by Tomi Crain DO (Vertical Mill Operator). Chiquita Link MD have personally reviewed and interpreted this examination/study. > Interpreting Provider: Chiquita Villegas MD on 01/04/2023 7:10 PM Narrative 01/04/2023 7:10 PM CDT PROCEDURE: CT HEAD WO CONTRAST, CT THORACIC SPINE WO CONTRAST, CT LUMBAR SPINE WO CONTRAST, CT CERVICAL SPINE WO CONTRAST, DATE/TIME OF EXAM: 01/04/2023 12:07 PM, LOCATION [facility] INDICATION: T14.90XA: Trauma EXAMINATION: 1.Computed tomography (CT) of the head without contrast 2.CT of the cervical spine without contrast 3.CT of the thoracic spine without contrast 4.CT of the lumbar spine without contrast ADDITIONAL CLINICAL INFORMATION: Ordering Provider Reason For Exam: Trauma ground level fall (accession [id number]), back pain (accession [id number]), back pain (accession [id number]), neck pain (accession [id number]) TECHNIQUE: CT of the head and cervical spine was performed without contrast according to standard protocol. Reformatted axial, sagittal, and coronal images of the thoracic and lumbar spine were obtained by the technologist from a concurrently performed body CT and sent to the workstation for review. CT dose reduction technique was used, including Automated Exposure Control. COMPARISON: PET/CT obtained 11/25/2022. FINDINGS: Head: No acute intracranial hemorrhage or extra-axial fluid collections are identified. There is mild cerebral volume loss with associated ex vacuo ventricular dilatation. The basilar cisterns are patent. No mass effect or midline shift is seen.. Periventricular white matter hypoattenuation is indicative of chronic small vessel ischemic disease. There is vascular calcification of the carotid siphons.The balderas-white matter differentiation otherwise appears normal No acute calvarial fracture is identified.. The orbits appear normal. The nasal septum is slightly deviated, otherwise the paranasal sinuses are clear.. The mastoid air cells are clear. No soft tissue abnormality is identified. Cervical spine: Diffuse osteopenia mildly limits the evaluation of subtle fractures. The alignment is normal. Vertebral bodies are normal in height without evidence of acute fracture. 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 Multilevel mild to moderate disc degenerative changes most prominent at the level of C4-C5 and C5-C6 with associated mild central canal stenosis.. Moderate facet arthropathy at bilateral There are varying degrees of mild facet osteoarthritis at other levels.. There are varying degrees of qiaa-yb-jpyoglta uncovertebral joint osteoarthritis, most prominent at the level of C4-C5 and C5-C6 with the same degree of neural foraminal stenosis at these levels. No soft tissue abnormality is identified. Partially visualized right-sided central venous line. Scarring/groundglass opacities noted in the bilateral lung... Please refer to CT chest from same day for additional details. Thoracic spine: Diffuse osteopenia limits evaluation for subtle fractures. Mild kyphosis of the thoracic spine. Mild vertebral body height loss limited lower thoracic spine predominantly involving T10, T9 and T7 vertebral bodies, most likely chronic. No evidence of acute compression fractures within the limits of the study. There is a sclerotic lesion at T11 vertebral body without significant hypermetabolic activity on PET/CT from 11/25/2022 could be secondary to hemangioma or bone island. There is advanced degenerative disc disease with disc space narrowing, vacuum degeneration, endplate degenerative changes predominantly in the mid to lower thoracic spine.. No significant central canal stenosis is seen. Multilevel mild to moderate facet arthropathy.. There are varying degrees of neural foraminal stenosis at multiple levels. There is atherosclerotic calcification and soft plaque of the thoracic aorta and its branch vessels. Lumbar spine: The alignment is normal. Slight vertebral body height loss without evidence of acute fracture. There is advanced degenerative disc disease with vacuum phenomenon at multiple levels, with the mild posterior disc bulges. Multilevel mild central canal stenosis most prominent at the level of L4-L5.. There is advanced facet osteoarthritis at L4-L5 and L5-S1. Mild left-sided neural foraminal stenosis at the level of L3-L4 L4-L5 and L5-S1 and moderate right-sided neural foramina stenosis at the level of L5-S1.. There is atherosclerotic calcification of the abdominal bilateral iliac and its branch vessels. Right simple renal cyst measuring 1.4 cm which is better characterized on the concurrent chest abdomen pelvis CT. Procedure Note Chiquita Villegas MD - 01/04/2023 PROCEDURE: CT HEAD WO CONTRAST, CT THORACIC SPINE WO CONTRAST, CTLUMBAR SPINE WO CONTRAST, CT CERVICAL SPINE WO CONTRAST, DATE/TIME OF EXAM: 01/04/2023 12:07 PM, LOCATION [facility] INDICATION: T14.90XA: Trauma EXAMINATION: 1.Computed tomography (CT) of the head without contrast 2.CT of the cervical spine without contrast 3.CT of the thoracic spine without contrast 4.CT of the lumbar spine without contrast ADDITIONAL CLINICAL INFORMATION: Ordering Provider Reason For Exam: Trauma ground level fall (accession [id number]), back pain (accession [id number]), back pain (accession [id number]), neck pain (accession [id number]) TECHNIQUE: CT of the head and cervical spine was performed withoutcontrast according to standard protocol. Reformatted axial, sagittal, and coronal images of the thoracic and lumbar spine were obtained by thetechnologist from a concurrently performed body CT and sent to the workstation for review. CT dose reduction technique was used, including AutomatedExposure Control. COMPARISON: PET/CT obtained 11/25/2022. FINDINGS: Head: No acute intracranial hemorrhage or extra-axial fluid collections are identified. There is mild cerebral volume loss with associated ex vacuo ventricular dilatation. The basilar cisterns are patent. No mass effector midline shift is seen.. Periventricular white matter hypoattenuation is indicative of chronic small vessel ischemic disease. There is vascular calcification of the carotid siphons.The balderas-white matterdifferentiation otherwise appears normal No acute calvarial fracture is identified.. The orbits appear normal. The nasal septum is slightly deviated, otherwisethe paranasal sinuses are clear.. The mastoid air cells are clear. No soft tissue abnormality is identified. Cervical spine: Diffuse osteopenia mildly limits the evaluation of subtle fractures. The alignment is normal. Vertebral bodies are normal in height without evidence of acute fracture. 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 Other than middle atlantoaxial joint osteoarthritis, thecraniocervical junction appears normal. Multilevel mild to moderate disc degenerative changes most prominent at the level of C4-C5 and C5-C6 with associatedmild central canal stenosis.. Moderate facet arthropathy at bilateral Thereare varying degrees of mild facet osteoarthritis at other levels.. There are varying degrees of hszc-do-nozwhgkn uncovertebral joint osteoarthritis, most prominent at the level of C4-C5 and C5-C6 with the same degree of neural foraminal stenosis at these levels. No soft tissue abnormality is identified. Partially visualized right-sided central venous line. Scarring/groundglass opacities noted in the bilateral lung... Pleaserefer to CT chest from same day for additional details. Thoracic spine: Diffuse osteopenia limits evaluation for subtle fractures. Mild kyphosis of the thoracic spine. Mild vertebral body height loss limited lower thoracic spine predominantly involving T10, T9 and T7 vertebral bodies, most likely chronic. No evidence of acute compression fractures within the limits of the study. There is a sclerotic lesion at T11 vertebral body without significant hypermetabolic activity on PET/CT from 11/25/2022 could be secondary to hemangioma or bone island. There is advanced degenerative disc disease with disc space narrowing, vacuum degeneration, endplate degenerative changes predominantly in the mid to lower thoracic spine.. No significant central canal stenosis is seen. Multilevel mild to moderate facet arthropathy.. There are varyingdegrees of neural foraminal stenosis at multiple levels. There isatherosclerotic calcification and soft plaque of the thoracic aorta and its branchvessels. Lumbar spine: The alignment is normal. Slight vertebral body height loss withoutevidence of acute fracture. There is advanced degenerative disc disease withvacuum phenomenon at multiple levels, with the mild posterior disc bulges. Multilevel mild central canal stenosis most prominent at the level of L4-L5.. There is advanced facet osteoarthritis at L4-L5 and L5-S1. Mild left-sided neural foraminal stenosis at the level of L3-L4 L4-L5 andL5-S1 and moderate right-sided neural foramina stenosis at the level ofL5-S1.. There is atherosclerotic calcification of the abdominal bilateral iliacand its branch vessels. Right simple renal cyst measuring 1.4 cm which is better characterized on the concurrent chest abdomen pelvis CT. IMPRESSION: 1.No acute intracranial process. 2.No acute fracture of the cervical, thoracic or lumbar spine within the limits of the study. Multilevel mild vertebral height loss predominantly involving T10 and T9 and T7 vertebral bodies most likely chronic. Multilevel mild to moderate degenerative changes as described above. Report dictated by Tomi Crain DO ([employer]). Chiquita Link MD have personally reviewed and interpreted this examination/study. > Interpreting Provider: Chiquita Villegas MD on 01/04/2023 7:10 PM Jessee Rodriguez MD CT ORDERABLES * CT THORACIC SPINE WO CONTRAST (01/04/2023 12:06 PM CDT) Anatomical Region Laterality Modality Spine Computed Tomogra phy 01/04/2023 1:17 PM CDT Impressions 01/04/2023 7:10 PM CDT IMPRESSION: 1.No acute intracranial process. 2.No acute fracture of the cervical, thoracic or lumbar spine within the limits of the study. Multilevel mild vertebral height loss predominantly involving T10 and T9 and T7 vertebral bodies most likely chronic. Multilevel mild to moderate degenerative changes as described above. Report dictated by Tomi Crain DO ([employer]). Chiquita Link MD have personally reviewed and interpreted this examination/study. > Interpreting Provider: Chiquita Villegas MD on 01/04/2023 7:10 PM Narrative 01/04/2023 7:10 PM CDT PROCEDURE: CT HEAD WO CONTRAST, CT THORACIC SPINE WO CONTRAST, CT LUMBAR SPINE WO CONTRAST, CT CERVICAL SPINE WO CONTRAST, DATE/TIME OF EXAM: 01/04/2023 12:07 PM, LOCATION [facility] INDICATION: T14.90XA: Trauma EXAMINATION: 1.Computed tomography (CT) of the head without contrast 2.CT of the cervical spine without contrast 3.CT of the thoracic spine without contrast 4.CT of the lumbar spine without contrast ADDITIONAL CLINICAL INFORMATION: Ordering Provider Reason For Exam: Trauma ground level fall (accession [id number]), back pain (accession [id number]), back pain (accession [id number]), neck pain (accession [id number]) TECHNIQUE: CT of the head and cervical spine was performed without contrast according to standard protocol. Reformatted axial, sagittal, and coronal images of the thoracic and lumbar spine were obtained by the technologist from a concurrently performed body CT and sent to the workstation for review. CT dose reduction technique was used, including Automated Exposure Control. COMPARISON: PET/CT obtained 11/25/2022. FINDINGS: Head: No acute intracranial hemorrhage or extra-axial fluid collections are identified. There is mild cerebral volume loss with associated ex vacuo ventricular dilatation. The basilar cisterns are patent. No mass effect or midline shift is seen.. Periventricular white matter hypoattenuation is indicative of chronic small vessel ischemic disease. There is vascular calcification of the carotid siphons.The balderas-white matter differentiation otherwise appears normal No acute calvarial fracture is identified.. The orbits appear normal. The nasal septum is slightly deviated, otherwise the paranasal sinuses are clear.. The mastoid air cells are clear. No soft tissue abnormality is identified. Cervical spine: Diffuse osteopenia mildly limits the evaluation of subtle fractures. The alignment is normal. Vertebral bodies are normal in height without evidence of acute fracture. 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 Multilevel mild to moderate disc degenerative changes most prominent at the level of C4-C5 and C5-C6 with associated mild central canal stenosis.. Moderate facet arthropathy at bilateral There are varying degrees of mild facet osteoarthritis at other levels.. There are varying degrees of uxrr-kt-igujgurb uncovertebral joint osteoarthritis, most prominent at the level of C4-C5 and C5-C6 with the same degree of neural foraminal stenosis at these levels. No soft tissue abnormality is identified. Partially visualized right-sided central venous line. Scarring/groundglass opacities noted in the bilateral lung... Please refer to CT chest from same day for additional details. Thoracic spine: Diffuse osteopenia limits evaluation for subtle fractures. Mild kyphosis of the thoracic spine. Mild vertebral body height loss limited lower thoracic spine predominantly involving T10, T9 and T7 vertebral bodies, most likely chronic. No evidence of acute compression fractures within the limits of the study. There is a sclerotic lesion at T11 vertebral body without significant hypermetabolic activity on PET/CT from 11/25/2022 could be secondary to hemangioma or bone island. There is advanced degenerative disc disease with disc space narrowing, vacuum degeneration, endplate degenerative changes predominantly in the mid to lower thoracic spine.. No significant central canal stenosis is seen. Multilevel mild to moderate facet arthropathy.. There are varying degrees of neural foraminal stenosis at multiple levels. There is atherosclerotic calcification and soft plaque of the thoracic aorta and its branch vessels. Lumbar spine: The alignment is normal. Slight vertebral body height loss without evidence of acute fracture. There is advanced degenerative disc disease with vacuum phenomenon at multiple levels, with the mild posterior disc bulges. Multilevel mild central canal stenosis most prominent at the level of L4-L5.. There is advanced facet osteoarthritis at L4-L5 and L5-S1. Mild left-sided neural foraminal stenosis at the level of L3-L4 L4-L5 and L5-S1 and moderate right-sided neural foramina stenosis at the level of L5-S1.. There is atherosclerotic calcification of the abdominal bilateral iliac and its branch vessels. Right simple renal cyst measuring 1.4 cm which is better characterized on the concurrent chest abdomen pelvis CT. Procedure Note Chiquita Villegas MD - 01/04/2023 PROCEDURE: CT HEAD WO CONTRAST, CT THORACIC SPINE WO CONTRAST, CTLUMBAR SPINE WO CONTRAST, CT CERVICAL SPINE WO CONTRAST, DATE/TIME OF EXAM: 01/04/2023 12:07 PM, LOCATION [facility] INDICATION: T14.90XA: Trauma EXAMINATION: 1.Computed tomography (CT) of the head without contrast 2.CT of the cervical spine without contrast 3.CT of the thoracic spine without contrast 4.CT of the lumbar spine without contrast ADDITIONAL CLINICAL INFORMATION: Ordering Provider Reason For Exam: Trauma ground level fall (accession [id number]), back pain (accession [id number]), back pain (accession [id number]), neck pain (accession [id number]) TECHNIQUE: CT of the head and cervical spine was performed withoutcontrast according to standard protocol. Reformatted axial, sagittal, and coronal images of the thoracic and lumbar spine were obtained by thetechnologist from a concurrently performed body CT and sent to the workstation for review. CT dose reduction technique was used, including AutomatedExposure Control. COMPARISON: PET/CT obtained 11/25/2022. FINDINGS: Head: No acute intracranial hemorrhage or extra-axial fluid collections are identified. There is mild cerebral volume loss with associated ex vacuo ventricular dilatation. The basilar cisterns are patent. No mass effector midline shift is seen.. Periventricular white matter hypoattenuation is indicative of chronic small vessel ischemic disease. There is vascular calcification of the carotid siphons.The balderas-white matterdifferentiation otherwise appears normal No acute calvarial fracture is identified.. The orbits appear normal. The nasal septum is slightly deviated, otherwisethe paranasal sinuses are clear.. The mastoid air cells are clear. No soft tissue abnormality is identified. Cervical spine: Diffuse osteopenia mildly limits the evaluation of subtle fractures. The alignment is normal. Vertebral bodies are normal in height without evidence of acute fracture. 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 Other than middle atlantoaxial joint osteoarthritis, thecraniocervical junction appears normal. Multilevel mild to moderate disc degenerative changes most prominent at the level of C4-C5 and C5-C6 with associatedmild central canal stenosis.. Moderate facet arthropathy at bilateral Thereare varying degrees of mild facet osteoarthritis at other levels.. There are varying degrees of biqx-aa-gfvqjtye uncovertebral joint osteoarthritis, most prominent at the level of C4-C5 and C5-C6 with the same degree of neural foraminal stenosis at these levels. No soft tissue abnormality is identified. Partially visualized right-sided central venous line. Scarring/groundglass opacities noted in the bilateral lung... Pleaserefer to CT chest from same day for additional details. Thoracic spine: Diffuse osteopenia limits evaluation for subtle fractures. Mild kyphosis of the thoracic spine. Mild vertebral body height loss limited lower thoracic spine predominantly involving T10, T9 and T7 vertebral bodies, most likely chronic. No evidence of acute compression fractures within the limits of the study. There is a sclerotic lesion at T11 vertebral body without significant hypermetabolic activity on PET/CT from 11/25/2022 could be secondary to hemangioma or bone island. There is advanced degenerative disc disease with disc space narrowing, vacuum degeneration, endplate degenerative changes predominantly in the mid to lower thoracic spine.. No significant central canal stenosis is seen. Multilevel mild to moderate facet arthropathy.. There are varyingdegrees of neural foraminal stenosis at multiple levels. There isatherosclerotic calcification and soft plaque of the thoracic aorta and its branchvessels. Lumbar spine: The alignment is normal. Slight vertebral body height loss withoutevidence of acute fracture. There is advanced degenerative disc disease withvacuum phenomenon at multiple levels, with the mild posterior disc bulges. Multilevel mild central canal stenosis most prominent at the level of L4-L5.. There is advanced facet osteoarthritis at L4-L5 and L5-S1. Mild left-sided neural foraminal stenosis at the level of L3-L4 L4-L5 andL5-S1 and moderate right-sided neural foramina stenosis at the level ofL5-S1.. There is atherosclerotic calcification of the abdominal bilateral iliacand its branch vessels. Right simple renal cyst measuring 1.4 cm which is better characterized on the concurrent chest abdomen pelvis CT. IMPRESSION: 1.No acute intracranial process. 2.No acute fracture of the cervical, thoracic or lumbar spine within the limits of the study. Multilevel mild vertebral height loss predominantly involving T10 and T9 and T7 vertebral bodies most likely chronic. Multilevel mild to moderate degenerative changes as described above. Report dictated by Tomi Crain DO (Vertical Mill Operator). I, Chiquita Villegas MD have personally reviewed and interpreted this examination/study. > Interpreting Provider: Chiquita Villegas MD on 01/04/2023 7:10 PM Jessee Rodriguez MD CT ORDERABLES * CT CERVICAL SPINE WO CONTRAST (01/04/2023 12:06 PM CDT) Anatomical Region Laterality Modality Spine Computed Tomogra phy 01/04/2023 1:17 PM CDT Impressions 01/04/2023 7:10 PM CDT IMPRESSION: 1.No acute intracranial process. 2.No acute fracture of the cervical, thoracic or lumbar spine within the limits of the study. Multilevel mild vertebral height loss predominantly involving T10 and T9 and T7 vertebral bodies most likely chronic. Multilevel mild to moderate degenerative changes as described above. Report dictated by Tomi Crain DO ([employer] Mill Operator). I, Chiquita Villegas MD have personally reviewed and interpreted this examination/study. > Interpreting Provider: Chiquita Villegas MD on 01/04/2023 7:10 PM Narrative 01/04/2023 7:10 PM CDT PROCEDURE: CT HEAD WO CONTRAST, CT THORACIC SPINE WO CONTRAST, CT LUMBAR SPINE WO CONTRAST, CT CERVICAL SPINE WO CONTRAST, DATE/TIME OF EXAM: 01/04/2023 12:07 PM, LOCATION [facility] INDICATION: T14.90XA: Trauma EXAMINATION: 1.Computed tomography (CT) of the head without contrast 2.CT of the cervical spine without contrast 3.CT of the thoracic spine without contrast 4.CT of the lumbar spine without contrast ADDITIONAL CLINICAL INFORMATION: Ordering Provider Reason For Exam: Trauma ground level fall (accession [id number]), back pain (accession [id number]), back pain (accession [id number]), neck pain (accession [id number]) TECHNIQUE: CT of the head and cervical spine was performed without contrast according to standard protocol. Reformatted axial, sagittal, and coronal images of the thoracic and lumbar spine were obtained by the technologist from a concurrently performed body CT and sent to the workstation for review. CT dose reduction technique was used, including Automated Exposure Control. COMPARISON: PET/CT obtained 11/25/2022. FINDINGS: Head: No acute intracranial hemorrhage or extra-axial fluid collections are identified. There is mild cerebral volume loss with associated ex vacuo ventricular dilatation. The basilar cisterns are patent. No mass effect or midline shift is seen.. Periventricular white matter hypoattenuation is indicative of chronic small vessel ischemic disease. There is vascular calcification of the carotid siphons.The balderas-white matter differentiation otherwise appears normal No acute calvarial fracture is identified.. The orbits appear normal. The nasal septum is slightly deviated, otherwise the paranasal sinuses are clear.. The mastoid air cells are clear. No soft tissue abnormality is identified. Cervical spine: Diffuse osteopenia mildly limits the evaluation of subtle fractures. The alignment is normal. Vertebral bodies are normal in height without evidence of acute fracture. 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 Multilevel mild to moderate disc degenerative changes most prominent at the level of C4-C5 and C5-C6 with associated mild central canal stenosis.. Moderate facet arthropathy at bilateral There are varying degrees of mild facet osteoarthritis at other levels.. There are varying degrees of cpmm-sc-uypvgpmn uncovertebral joint osteoarthritis, most prominent at the level of C4-C5 and C5-C6 with the same degree of neural foraminal stenosis at these levels. No soft tissue abnormality is identified. Partially visualized right-sided central venous line. Scarring/groundglass opacities noted in the bilateral lung... Please refer to CT chest from same day for additional details. Thoracic spine: Diffuse osteopenia limits evaluation for subtle fractures. Mild kyphosis of the thoracic spine. Mild vertebral body height loss limited lower thoracic spine predominantly involving T10, T9 and T7 vertebral bodies, most likely chronic. No evidence of acute compression fractures within the limits of the study. There is a sclerotic lesion at T11 vertebral body without significant hypermetabolic activity on PET/CT from 11/25/2022 could be secondary to hemangioma or bone island. There is advanced degenerative disc disease with disc space narrowing, vacuum degeneration, endplate degenerative changes predominantly in the mid to lower thoracic spine.. No significant central canal stenosis is seen. Multilevel mild to moderate facet arthropathy.. There are varying degrees of neural foraminal stenosis at multiple levels. There is atherosclerotic calcification and soft plaque of the thoracic aorta and its branch vessels. Lumbar spine: The alignment is normal. Slight vertebral body height loss without evidence of acute fracture. There is advanced degenerative disc disease with vacuum phenomenon at multiple levels, with the mild posterior disc bulges. Multilevel mild central canal stenosis most prominent at the level of L4-L5.. There is advanced facet osteoarthritis at L4-L5 and L5-S1. Mild left-sided neural foraminal stenosis at the level of L3-L4 L4-L5 and L5-S1 and moderate right-sided neural foramina stenosis at the level of L5-S1.. There is atherosclerotic calcification of the abdominal bilateral iliac and its branch vessels. Right simple renal cyst measuring 1.4 cm which is better characterized on the concurrent chest abdomen pelvis CT. Procedure Note Chiquita Villegas MD - 01/04/2023 PROCEDURE: CT HEAD WO CONTRAST, CT THORACIC SPINE WO CONTRAST, CTLUMBAR SPINE WO CONTRAST, CT CERVICAL SPINE WO CONTRAST, DATE/TIME OF EXAM: 01/04/2023 12:07 PM, LOCATION [facility] INDICATION: T14.90XA: Trauma EXAMINATION: 1.Computed tomography (CT) of the head without contrast 2.CT of the cervical spine without contrast 3.CT of the thoracic spine without contrast 4.CT of the lumbar spine without contrast ADDITIONAL CLINICAL INFORMATION: Ordering Provider Reason For Exam: Trauma ground level fall (accession [id number]), back pain (accession [id number]), back pain (accession [id number]), neck pain (accession [id number]) TECHNIQUE: CT of the head and cervical spine was performed withoutcontrast according to standard protocol. Reformatted axial, sagittal, and coronal images of the thoracic and lumbar spine were obtained by thetechnologist from a concurrently performed body CT and sent to the workstation for review. CT dose reduction technique was used, including AutomatedExposure Control. COMPARISON: PET/CT obtained 11/25/2022. FINDINGS: Head: No acute intracranial hemorrhage or extra-axial fluid collections are identified. There is mild cerebral volume loss with associated ex vacuo ventricular dilatation. The basilar cisterns are patent. No mass effector midline shift is seen.. Periventricular white matter hypoattenuation is indicative of chronic small vessel ischemic disease. There is vascular calcification of the carotid siphons.The balderas-white matterdifferentiation otherwise appears normal No acute calvarial fracture is identified.. The orbits appear normal. The nasal septum is slightly deviated, otherwisethe paranasal sinuses are clear.. The mastoid air cells are clear. No soft tissue abnormality is identified. Cervical spine: Diffuse osteopenia mildly limits the evaluation of subtle fractures. The alignment is normal. Vertebral bodies are normal in height without evidence of acute fracture. 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 Other than middle atlantoaxial joint osteoarthritis, thecraniocervical junction appears normal. Multilevel mild to moderate disc degenerative changes most prominent at the level of C4-C5 and C5-C6 with associatedmild central canal stenosis.. Moderate facet arthropathy at bilateral Thereare varying degrees of mild facet osteoarthritis at other levels.. There are varying degrees of nkyr-yo-zfmaobet uncovertebral joint osteoarthritis, most prominent at the level of C4-C5 and C5-C6 with the same degree of neural foraminal stenosis at these levels. No soft tissue abnormality is identified. Partially visualized right-sided central venous line. Scarring/groundglass opacities noted in the bilateral lung... Pleaserefer to CT chest from same day for additional details. Thoracic spine: Diffuse osteopenia limits evaluation for subtle fractures. Mild kyphosis of the thoracic spine. Mild vertebral body height loss limited lower thoracic spine predominantly involving T10, T9 and T7 vertebral bodies, most likely chronic. No evidence of acute compression fractures within the limits of the study. There is a sclerotic lesion at T11 vertebral body without significant hypermetabolic activity on PET/CT from 11/25/2022 could be secondary to hemangioma or bone island. There is advanced degenerative disc disease with disc space narrowing, vacuum degeneration, endplate degenerative changes predominantly in the mid to lower thoracic spine.. No significant central canal stenosis is seen. Multilevel mild to moderate facet arthropathy.. There are varyingdegrees of neural foraminal stenosis at multiple levels. There isatherosclerotic calcification and soft plaque of the thoracic aorta and its branchvessels. Lumbar spine: The alignment is normal. Slight vertebral body height loss withoutevidence of acute fracture. There is advanced degenerative disc disease withvacuum phenomenon at multiple levels, with the mild posterior disc bulges. Multilevel mild central canal stenosis most prominent at the level of L4-L5.. There is advanced facet osteoarthritis at L4-L5 and L5-S1. Mild left-sided neural foraminal stenosis at the level of L3-L4 L4-L5 andL5-S1 and moderate right-sided neural foramina stenosis at the level ofL5-S1.. There is atherosclerotic calcification of the abdominal bilateral iliacand its branch vessels. Right simple renal cyst measuring 1.4 cm which is better characterized on the concurrent chest abdomen pelvis CT. IMPRESSION: 1.No acute intracranial process. 2.No acute fracture of the cervical, thoracic or lumbar spine within the limits of the study. Multilevel mild vertebral height loss predominantly involving T10 and T9 and T7 vertebral bodies most likely chronic. Multilevel mild to moderate degenerative changes as described above. Report dictated by Tomi Crain DO (Vertical Mill Operator). Chiquita Link MD have personally reviewed and interpreted this examination/study. > Interpreting Provider: Chiquita Villegas MD on 01/04/2023 7:10 PM Jessee Rodriguez MD CT ORDERABLES * CT HEAD WO CONTRAST ??? Intracranial hemorrhage (01/04/2023 12:06 PM CDT) Only the most recent of2 resultswithin the time period is included. Anatomical Region Laterality Modality Head Computed Tomogra phy 01/04/2023 1:17 PM CDT Impressions 01/04/2023 7:10 PM CDT IMPRESSION: 1.No acute intracranial process. 2.No acute fracture of the cervical, thoracic or lumbar spine within the limits of the study. Multilevel mild vertebral height loss predominantly involving T10 and T9 and T7 vertebral bodies most likely chronic. Multilevel mild to moderate degenerative changes as described above. Report dictated by Tomi Crain DO (Vertical Mill Operator). Chiquita Link MD have personally reviewed and interpreted this examination/study. > Interpreting Provider: Chiquita Villegas MD on 01/04/2023 7:10 PM Narrative 01/04/2023 7:10 PM CDT PROCEDURE: CT HEAD WO CONTRAST, CT THORACIC SPINE WO CONTRAST, CT LUMBAR SPINE WO CONTRAST, CT CERVICAL SPINE WO CONTRAST, DATE/TIME OF EXAM: 01/04/2023 12:07 PM, LOCATION [facility] INDICATION: T14.90XA: Trauma EXAMINATION: 1.Computed tomography (CT) of the head without contrast 2.CT of the cervical spine without contrast 3.CT of the thoracic spine without contrast 4.CT of the lumbar spine without contrast ADDITIONAL CLINICAL INFORMATION: Ordering Provider Reason For Exam: Trauma ground level fall (accession [id number]), back pain (accession [id number]), back pain (accession [id number]), neck pain (accession [id number]) TECHNIQUE: CT of the head and cervical spine was performed without contrast according to standard protocol. Reformatted axial, sagittal, and coronal images of the thoracic and lumbar spine were obtained by the technologist from a concurrently performed body CT and sent to the workstation for review. CT dose reduction technique was used, including Automated Exposure Control. COMPARISON: PET/CT obtained 11/25/2022. FINDINGS: Head: No acute intracranial hemorrhage or extra-axial fluid collections are identified. There is mild cerebral volume loss with associated ex vacuo ventricular dilatation. The basilar cisterns are patent. No mass effect or midline shift is seen.. Periventricular white matter hypoattenuation is indicative of chronic small vessel ischemic disease. There is vascular calcification of the carotid siphons.The balderas-white matter differentiation otherwise appears normal No acute calvarial fracture is identified.. The orbits appear normal. The nasal septum is slightly deviated, otherwise the paranasal sinuses are clear.. The mastoid air cells are clear. No soft tissue abnormality is identified. Cervical spine: Diffuse osteopenia mildly limits the evaluation of subtle fractures. The alignment is normal. Vertebral bodies are normal in height without evidence of acute fracture. 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 Multilevel mild to moderate disc degenerative changes most prominent at the level of C4-C5 and C5-C6 with associated mild central canal stenosis.. Moderate facet arthropathy at bilateral There are varying degrees of mild facet osteoarthritis at other levels.. There are varying degrees of qars-yc-hyurkzsk uncovertebral joint osteoarthritis, most prominent at the level of C4-C5 and C5-C6 with the same degree of neural foraminal stenosis at these levels. No soft tissue abnormality is identified. Partially visualized right-sided central venous line. Scarring/groundglass opacities noted in the bilateral lung... Please refer to CT chest from same day for additional details. Thoracic spine: Diffuse osteopenia limits evaluation for subtle fractures. Mild kyphosis of the thoracic spine. Mild vertebral body height loss limited lower thoracic spine predominantly involving T10, T9 and T7 vertebral bodies, most likely chronic. No evidence of acute compression fractures within the limits of the study. There is a sclerotic lesion at T11 vertebral body without significant hypermetabolic activity on PET/CT from 11/25/2022 could be secondary to hemangioma or bone island. There is advanced degenerative disc disease with disc space narrowing, vacuum degeneration, endplate degenerative changes predominantly in the mid to lower thoracic spine.. No significant central canal stenosis is seen. Multilevel mild to moderate facet arthropathy.. There are varying degrees of neural foraminal stenosis at multiple levels. There is atherosclerotic calcification and soft plaque of the thoracic aorta and its branch vessels. Lumbar spine: The alignment is normal. Slight vertebral body height loss without evidence of acute fracture. There is advanced degenerative disc disease with vacuum phenomenon at multiple levels, with the mild posterior disc bulges. Multilevel mild central canal stenosis most prominent at the level of L4-L5.. There is advanced facet osteoarthritis at L4-L5 and L5-S1. Mild left-sided neural foraminal stenosis at the level of L3-L4 L4-L5 and L5-S1 and moderate right-sided neural foramina stenosis at the level of L5-S1.. There is atherosclerotic calcification of the abdominal bilateral iliac and its branch vessels. Right simple renal cyst measuring 1.4 cm which is better characterized on the concurrent chest abdomen pelvis CT. Procedure Note Chiquita Villegas MD - 01/04/2023 PROCEDURE: CT HEAD WO CONTRAST, CT THORACIC SPINE WO CONTRAST, CTLUMBAR SPINE WO CONTRAST, CT CERVICAL SPINE WO CONTRAST, DATE/TIME OF EXAM: 01/04/2023 12:07 PM, LOCATION [facility] INDICATION: T14.90XA: Trauma EXAMINATION: 1.Computed tomography (CT) of the head without contrast 2.CT of the cervical spine without contrast 3.CT of the thoracic spine without contrast 4.CT of the lumbar spine without contrast ADDITIONAL CLINICAL INFORMATION: Ordering Provider Reason For Exam: Trauma ground level fall (accession [id number]), back pain (accession [id number]), back pain (accession [id number]), neck pain (accession [id number]) TECHNIQUE: CT of the head and cervical spine was performed withoutcontrast according to standard protocol. Reformatted axial, sagittal, and coronal images of the thoracic and lumbar spine were obtained by thetechnologist from a concurrently performed body CT and sent to the workstation for review. CT dose reduction technique was used, including AutomatedExposure Control. COMPARISON: PET/CT obtained 11/25/2022. FINDINGS: Head: No acute intracranial hemorrhage or extra-axial fluid collections are identified. There is mild cerebral volume loss with associated ex vacuo ventricular dilatation. The basilar cisterns are patent. No mass effector midline shift is seen.. Periventricular white matter hypoattenuation is indicative of chronic small vessel ischemic disease. There is vascular calcification of the carotid siphons.The balderas-white matterdifferentiation otherwise appears normal No acute calvarial fracture is identified.. The orbits appear normal. The nasal septum is slightly deviated, otherwisethe paranasal sinuses are clear.. The mastoid air cells are clear. No soft tissue abnormality is identified. Cervical spine: Diffuse osteopenia mildly limits the evaluation of subtle fractures. The alignment is normal. Vertebral bodies are normal in height without evidence of acute fracture. 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 Other than middle atlantoaxial joint osteoarthritis, thecraniocervical junction appears normal. Multilevel mild to moderate disc degenerative changes most prominent at the level of C4-C5 and C5-C6 with associatedmild central canal stenosis.. Moderate facet arthropathy at bilateral Thereare varying degrees of mild facet osteoarthritis at other levels.. There are varying degrees of duod-cs-mqootbqq uncovertebral joint osteoarthritis, most prominent at the level of C4-C5 and C5-C6 with the same degree of neural foraminal stenosis at these levels. No soft tissue abnormality is identified. Partially visualized right-sided central venous line. Scarring/groundglass opacities noted in the bilateral lung... Pleaserefer to CT chest from same day for additional details. Thoracic spine: Diffuse osteopenia limits evaluation for subtle fractures. Mild kyphosis of the thoracic spine. Mild vertebral body height loss limited lower thoracic spine predominantly involving T10, T9 and T7 vertebral bodies, most likely chronic. No evidence of acute compression fractures within the limits of the study. There is a sclerotic lesion at T11 vertebral body without significant hypermetabolic activity on PET/CT from 11/25/2022 could be secondary to hemangioma or bone island. There is advanced degenerative disc disease with disc space narrowing, vacuum degeneration, endplate degenerative changes predominantly in the mid to lower thoracic spine.. No significant central canal stenosis is seen. Multilevel mild to moderate facet arthropathy.. There are varyingdegrees of neural foraminal stenosis at multiple levels. There isatherosclerotic calcification and soft plaque of the thoracic aorta and its branchvessels. Lumbar spine: The alignment is normal. Slight vertebral body height loss withoutevidence of acute fracture. There is advanced degenerative disc disease withvacuum phenomenon at multiple levels, with the mild posterior disc bulges. Multilevel mild central canal stenosis most prominent at the level of L4-L5.. There is advanced facet osteoarthritis at L4-L5 and L5-S1. Mild left-sided neural foraminal stenosis at the level of L3-L4 L4-L5 andL5-S1 and moderate right-sided neural foramina stenosis at the level ofL5-S1.. There is atherosclerotic calcification of the abdominal bilateral iliacand its branch vessels. Right simple renal cyst measuring 1.4 cm which is better characterized on the concurrent chest abdomen pelvis CT. IMPRESSION: 1.No acute intracranial process. 2.No acute fracture of the cervical, thoracic or lumbar spine within the limits of the study. Multilevel mild vertebral height loss predominantly involving T10 and T9 and T7 vertebral bodies most likely chronic. Multilevel mild to moderate degenerative changes as described above. Report dictated by Tomi Crain DO (Vertical Mill Operator). I, Chiquita Villegas MD have personally reviewed and interpreted this examination/study. > Interpreting Provider: Chiquita Villegas MD on 01/04/2023 7:10 PM Jessee Rodriguez MD CT ORDERABLES * (ABNORMAL) TEG 6 GLOBAL HEMOSTASIS W/ LYSIS (01/04/2023 11:10 AM CDT) Citrated Kaolin R (Reaction Time) 2.9(L) 4.6 - 9.1 min 01/04/2023 1:19 PM [facility] Comment:CK R result below no rmal range. Consistent with hypercoagulable clotting factors. Citrated Kaolin LY30 (Lysis) 0.0 0.0 - 2.6 % 01/04/2023 1:19 PM [facility] Citrated Functional Fibrinogen MA (Max Amplitude) 36.5(H) 15.0 - 32.0 mm 01/04/2023 1:19 PM [facility] Comment:CFF MA above normal range. Consistent with elevated fibrinogen contribution to clot strength. Citrated RapidTEG MA (Max Amplitude) 63.1 52.0 - 70.0 mm 01/04/2023 1:19 PM [facility] Blood BLOOD SPECIMEN / Unknown Venipuncture / Unknown 01/04/2023 11:10 AM CDT 01/04/2023 11:16 AM CDT Jessee Rodriguez MD LAB - HEMATOLOGY ORD ERABLES [facility] [address] [place] [address], [place] [phone] * (ABNORMAL) TEG 6S PLATELET MAPPING (01/04/2023 10:21 AM CDT) TEGPLM (Max Amplitude) Koalin 63.0 53.0 - 68.0 mm 01/04/2023 12:00 PM CDT [facility] TEGPLM (Max Amplitude) ACTF 24.3(H) 2.0 - 19.0 mm 01/04/2023 12:00 PM T [facility] TEGPLM (Max Amplitude) ADP 55.3 45.0 - 69.0 mm 01/04/2023 12:00 PM T [facility] TEGPLM (Max Amplitude) AA 58.2 51.0 - 71.0 mm 01/04/2023 12:00 PM T [facility] TEGPLM %Inhibition ADP 19.9(H) 0.0 - 17.0 % 01/04/2023 12:00 PM T [facility] TEGPLM %Inhibition AA 12.4(H) 0.0 - 11.0 % 01/04/2023 12:00 PM T [facility] TEGPLM %Aggregation ADP 80.1(L) 83.0 - 100.0 % 01/04/2023 12:00 PM T [facility] TEGPLM % Aggregation AA 87.6(L) 89.0 - 100.0 % 01/04/2023 12:00 PM [facility] Blood BLOOD SPECIMEN / Unknown Venipuncture / Unknown 01/04/2023 10:21 AM CDT 01/04/2023 10:32 AM CDT Jessee Rodriguez MD LAB - HEMATOLOGY ORD ERABLES [facility] [address] [place] [address], [facility] [phone] * (ABNORMAL) URINE DRUG SCREEN IMMUNOASSAY (01/04/2023 8:31 AM [facility]) Amphetamines Screen Urine Negative Negative : < 1000 ng/mL 01/04/2023 9:02 AM [facility] Barbiturates Screen Urine Negative Negative : < 200 ng/mL 01/04/2023 9:02 AM [facility] Benzodiazepine Screen Urine Negative Negative : < 200 ng/mL 01/04/2023 9:02 AM [facility] Opiates Urine Positive(A) Negative : < 300 ng/mL 01/04/2023 9:02 AM [facility] Comment:Positive urine opiat e screening results should be confirmed by another generally accepted non-immunological method such as gas chromatography or mass spectrometry. Cocaine Metabolites Urine Negative Negative : < 300 ng/mL 01/04/2023 9:02 AM [facility] Phencyclidine Screen Urine Negative Negative : < 25 ng/ml 01/04/2023 9:02 AM [facility] Cannabinoids Screen Urine Negative Negative : <50 ng/mL 01/04/2023 9:02 AM [facility] Methadone Screen Urine Negative Negative : < 300 ng/mL 01/04/2023 9:02 AM [facility] Fentanyl Screen Urine Negative Negative : <1.5 ng/mL 01/04/2023 9:02 AM [facility] Urine URINE / Unknown Collection / Unknown 01/04/2023 8:31 AM [facility] 01/04/2023 8:34 AM [facility] - 01/04/2023 9:02 AM [facility] The Urine Toxicology Screening Panel does not screen for Propoxyphene, Meprobamate, Carisoprodol, Trazodone, liyp-obc-rgdvzde medications and/or volatiles (Acetone, Isopropanol, Methanol or Ethylene Glycol). Ethanol, Salicylate, Acetaminophen, Tricyclic Antidepressants and several therapeutic drugs may be individually assayed in serum or plasma specimen. Toxicology testing by the [facility] is an aid to medical diagnosis and treatment of patients. No documented chain of custody was maintained. Results are intended to be used for clinical purposes only. Jessee Rodriguez MD LAB - URINE CHEMISTR Y ORDERABLES Performing Organization Address [facility] Co de Phone Number [facility] [address] [place] [address], [facility] [phone] * ALCOHOL ETHYL BLOOD (01/04/2023 8:26 AM CDT) Ethanol (mg/dL) <10 <10 mg/dL 9:03 AM CDT [facility] Ethanol Calculated (g/dL) <0.010 <=0.010 g/dL 01/04/2023 9:03 AM CDT [facility] Blood BLOOD SPECIMEN / Unknown Venipuncture / Unknown 01/04/2023 8:26 AM CDT 01/04/2023 8:36 AM CDT Narrative [facility] - 01/04/2023 9:03 AM CDT Ethanol Interp <10: None Detected. Depression of ANESTHESIA ASSOCIATE: >100 mg/dl Potentially Critical: >250 mg/dl Potentially Fatal >400 mg/dl Ethanol in the patient's blood will contribute to the osmolar gap. Ethanol's contribution to the osmolar gap can be estimated by dividing the concentration of ethanol in mg/dL by 4.6. This test is for clinical use only and does not equal a LATANYA for legal purposes. Jessee Rodriguez MD LAB - CHEMISTRY ORDE DONA Performing Organization Address [facility] Co de Phone Number [facility] [address] [place] [id number], [facility] [phone] * XR PELVIS 1 OR 2VW (01/04/2023 8:05 AM CDT) Anatomical Region Laterality Modality Pelvis Radiographic Katja ging 01/04/2023 4:20 PM CDT Impressions 01/04/2023 4:34 PM CDT IMPRESSION: No acute fracture identified. Report dictated by Shen Roland DO (vice president tax). I, Mauri Caceres MD have personally reviewed and interpreted this examination/study. > Interpreting Provider: Mauri Caceres MD on 01/04/2023 4:34 PM Narrative 01/04/2023 4:34 PM CDT PROCEDURE: XR PELVIS 1 OR 2VW, DATE/TIME OF EXAM: 01/04/2023 8:22 AM, LOCATION [facility] INDICATION: T14.90XA: Trauma ADDITIONAL CLINICAL INFORMATION: Ordering Provider Reason For Exam: Trauma COMPARISON: None. FINDINGS: Within the limitations of nonstandard positioning, No acute fracture is identified. The femoral heads appear well-seated within their respective acetabula. The pubic symphysis is intact. Bone density is decreased. The sacroiliac joints are not well delineated. Procedure Note Mauri Caceres MD - 01/04/2023 PROCEDURE: XR PELVIS 1 OR 2VW, DATE/TIME OF EXAM: 01/04/2023 8:22 AM, LOCATION [facility] INDICATION: T14.90XA: Trauma ADDITIONAL CLINICAL INFORMATION: Ordering Provider Reason For Exam: Trauma COMPARISON: None. FINDINGS: Within the limitations of nonstandard positioning, No acute fracture is identified. The femoral heads appear well-seated within their respective acetabula. The pubic symphysis is intact. Bone density is decreased. The sacroiliac joints are not well delineated. IMPRESSION: No acute fracture identified. Report dictated by Shen Roland DO (vice president tax). I, Mauri Caceres MD have personally reviewed and interpreted this examination/study. > Interpreting Provider: Mauri Caceres MD on 01/04/2023 4:34 PM Jessee Rodriguez MD DIAGNOSTIC IMAGING O RDERABLES * (ABNORMAL) BLOOD GASES DANIELE + COOX PANEL (12/17/2022 10:15 PM CDT) pH Venous 7.37 7.32 - 7.42 pH 12/17/2022 10:23 PM CDT [facility] pO2 Venous 32(L) 35 - 40 mmHg 12/17/2022 10:23 PM CDT [facility] pCO2 Venous 37(L) 40 - 50 mmHg 12/17/2022 10:23 PM CDT [facility] HCO3 Venous 21.4 20 - 30 mmol/L 12/17/2022 10:23 PM CDT [facility] Base Excess Venous -3.5(L) -2.0 - 2.0 mmol/L 12/17/2022 10:23 PM [facility] Oxyhemoglobin Venous 54.4 % 11/20 10:23 PM [facility] Deoxyhemoglobin (HHB) Venous % 41.6 % 12/17/2022 10:23 PM [facility] Methemoglobin 0.9 0.0 - 2.0 % 12/17/2022 10:23 PM [facility] Carboxyhemoglobin 3.1(H) 0.0 - 2.0 % 2022 10:23 PM [facility] O2 Content Venous 8.6 Interpret within clinical context ml/dL 12/17/2022 10:23 PM [facility] Hemoglobin by COOX 11.2(L) 12.0 - 15.6 g/dL 12/17/2022 10:23 PM [facility] O2 Saturation Venous 57(L) >=70 % 11/20 10:23 PM [facility] FI O2 Mixed Venous 21.0 % 2022 10:23 PM [facility] Blood BLOOD SPECIMEN / Unknown Venipuncture / Unknown 12/17/2022 10:15 PM CDT 12/17/2022 10:18 PM [facility] - 12/17/2022 10:23 PM [facility] Carboxyhemoglobin Normal Concentration: Non-smokers: 0-2%; Smokers: 0-9%; Toxic: >20% Scott Atkinson MD LAB - BLOOD GASES OR DERABLES Performing Organization Address City/State/[facility] Co de Phone Number [facility] [address] [place] [phone], [facility] [phone] * SARS-COV-2 (COVID-19)+INFLU A+B PCR RAPID (12/17/2022 10:07 PM CDT) Only the most recent of2 resultswithin the time period is included. COVID-19 PCR Not detected Not detected 12/18/19 10:56 PM [facility] Influenza A Rapid THONY Not Detected Not Detected 12/17/2022 10:56 PM [facility] Influenza B THONY Rapid Not Detected Not Detected 12/17/2022 10:56 PM CDT [facility] Microbiology SPECIMEN FROM NASOPHARYNGEAL STRUCTURE / Unknown Collection / Unknown 12/17/2022 10:07 PM CDT 12/17/2022 10:18 PM CDT Narrative [facility] - 12/17/2022 10:56 PM CDT Influenza assay performed by Nucleic Acid Amplification. Results do not exclude the possibility of a mixed viral infection. NOTE: Detecting and identifying specific viral nucleic acids from individuals exhibiting signs and symptoms of respiratory infection aids in the diagnosis of respiratory infection, if used in conjunction with other clinical and laboratory findings. The results of this test should not be used as the sole basis for diagnosis, treatment, or patient management decisions. This nucleic acid amplification assay performance was validated by [facility]. This test has been authorized by the Food and Drug administration (FDA)under an Emergency Use Authorization (EUA). This test has been validated in accordance with the FDA's guidance document Policy for Diagnostic Testing in Laboratories Certified to perform High Complexity Testing under CLIA prior to Emergency Use Authorization for Coronavirus Disease-2019 during the Public Health Emergency issued on May 19, 2019. FDA independent review of this validation is pending. This test is only authorized for the duration of time the declaration that circumstances exist justifying the authorization of emergency use of in vitro diagnostic tests for detection of SARS-CoV-2 virus and/or diagnosis of COVID-19 infection under section 564(b)(1) of the Act, 21 U.S.C 360bbb-3 (b)(1), unless the authorization is terminated or revoked sooner. Fact Sheets for this EUA assay are available upon request. Fili Garcia PA-C LAB - MICROBIOLOG Y ORDERABLES [facility] [address] [place] [address], [facility] [phone] * HYDROXYBUTYRATE BETA (12/17/2022 6:35 PM CDT) Beta-Hydroxybu tyrate <0.50 <0.50 mmol/L 12/17/2022 7:36 PM CDT [facility] Blood BLOOD SPECIMEN / Unknown Venipuncture / Unknown 12/17/2022 6:35 PM CDT 12/17/2022 6:57 PM CDT Gela Lazar MD LAB - CHEMISTRY [facility] [address] [address], [facility] [phone] * (ABNORMAL) GLUCOSE (12/13/2022 1:36 PM CDT) Glucose 627(HH) 70 - 115 mg/dL 12/13/2022 2:10 PM CDT [facility] Blood BLOOD SPECIMEN / Unknown Venipuncture / Unknown 12/13/2022 1:36 PM CDT 12/13/2022 1:41 PM CDT Redd Middleton MD LAB - CHEMISTRY [facility] [address] [address], [place] [phone] * ECHO COMPLETE W CONTRAST (11/26/2022 11:51 AM CDT) BSA 2.0023103 m2 [facility]SM CV FUJ I PACS LV biplane EF 58 54 - 74 % SSM CV FUJI PACS LV A2C EF 61 52 - 76 % SSM CV FUJ I PACS LV A4C EF 58 46 - 78 % SSM CV FUJ I PACS LVOT stroke vol 81.47 mL SSM CV FUJI PACS LVOT stroke vol index 40.54 ml/m2 SSM CV FUJI PACS LV stroke vol 2D teich 52.178 ml SSM CV FUJI PACS LV stroke vol index A4C MOD 56.761 ml/m2 SSM CV FUJI PACS LV Stroke Index 2D Teich 25.96 mL/m2 SSM CV FUJI PACS LVIDd 4.24 3.8 - 5.2 cm SSM CV FUJI PACS LVIDs 2.75 2.2 - 3.5 cm SSM CV FUJI PACS IVSd 2D 1.024 0.6 - 0.9 cm SSM CV FUJI PACS LVPWd 0.82 cm SSM CV FUJ I PACS Fractional Shortening 2D 35 28 - 44 % SSM CV FUJI PACS LV ESV BP 42.952 14 - 42 mL SSM CV FUJI PACS LV ESV index BP 21.4 8 - 24 mL/m2 SSM CV FUJI PACS LV ESV A2C 41.136 10 - 54 mL SSM CV FUJI PACS LV ESV index A2C 20.47 6 - 30 mL/m2 SSM CV FUJI PACS LV EDV BP 103.377 mL SSM CV FUJ I PACS LV ESV A4C 42.155 12 - 60 mL SSM CV FUJI PACS LV ESV index A4C 20.97 7 - 35 mL/m2 SSM CV FUJI PACS LV EDV index BP 51.4 29 - 61 mL/m2 SSM CV FUJI PACS LV EDV A2C 108.92 41 - 133 mL SSM CV FUJI PACS LV EDV index A2C 54.19 26 - 74 mL/m2 SSM CV FUJI PACS LV EDV A4C 97.897 mL SSM CV FU JI PACS LV ESV 2D 28.284 14 - 42 mL SSM CV FUJI PACS LV EDV index A4C 48.71 30 - 82 mL/m2 SSM CV FUJI PACS LV ESV index 2D 14.07 8 - 24 mL/m2 SSM CV FUJI PACS LV EDV 2D 80.462 46 - 106 mL SSM CV FUJI PACS LV EDV index 2D 40.03 29 - 61 mL/m2 SSM CV FUJI PACS LVOT diam 2.0 cm SSM CV FUJ I PACS LVOT area 3.07 cm2 SSM CV FUJ I PACS LV RWT 0.386 SSM CV FUJ I PACS LV Bey A2C 7.625 cm SSM CV F UJI PACS LV Bey A4C 7.678 cm SSM CV F UJI PACS IVS/LVPW 1.251 SSM CV FUJ I PACS LV mass 2D 124.534 66 - 150 g SSM CV FUJI PACS LV mass index 2D 61.96 44 - 88 g/m2 SSM CV FUJI PACS MV E pk issa 82.616 cm/s SSM CV F UJI PACS MV avg E/e' ratio 8.87 SS M CV FUJI PACS MV A pk issa 93.088 cm/s SSM CV F UJI PACS MV E A ratio 0.89 SSM CV FUJI PACS MV E' lateral issa 10.574 cm/s SS M CV FUJI PACS MV DT 221 ms SSM CV FUJ I PACS MV E' septal issa 8.323 cm/s SSM CV FUJI PACS MV E/e' septal 9.926 SSM C V FUJI PACS MV E/e' lateral 7.813 SSM CV FUJI PACS LA vol BP 49.217 mL SSM CV FUJ I PACS TR pk issa 250.7 cm/s SSM CV FUJ I PACS LVOT pk issa 1.12 m/s SSM CV F UJI PACS LVOT mn issa 0.86 m/s SSM CV F UJI PACS LVOT mn grad 3.2 mmHg SSM CV FUJI PACS LVOT Cardiac Output 5.524 l/min SSM CV FUJI PACS LVOT Cardiac Index 2.75 l/min/m2 SSM CV FUJI PACS LA vol index 24.5 16 - 34 mL/m2 SSM CV FUJI PACS LA size 3.025 2.7 - 3.8 cm SSM CV FUJI PACS LA vol BP A-L 51.156 mL SSM CV FUJI PACS TV S' issa 10.765 SSM CV FUJ I PACS TAPSE 2.465 1.7 cm SSM CV FUJ I PACS RA area 11.388 cm2 SSM CV FUJ I PACS AV mn grad 5 mmHg SSM CV FU JI PACS AV pk grad 9 mmHg SSM CV FU JI PACS AV mn issa 1.10 m/s SSM CV FUJ I PACS AV pk issa 1.51 m/s SSM CV FUJ I PACS AV VTI 35.808 cm SSM CV FUJ I PACS LVOT pk grad 5.058 mmHg SSM CV FUJI PACS LVOT VTI 26.511 cm SSM CV FUJ I PACS AV area cont VTI 2.3 cm2 SSM CV FUJI PACS AV area pk issa 2.3 cm2 SSM C V FUJI PACS AV Doppler issa index pk issa 0.746 SSM CV FUJI PACS LVOT stroke vol index 40.5 mL/m2 SSM CV FUJI PACS Dimensionless Index 0.74 SSM CV FUJI PACS MV decel slope 374.241 cm/s2 SSM C V FUJI PACS TR pk grad 25 mmHg SSM CV FU JI PACS PV pk issa 96.724 cm/s SSM CV FUJ I PACS PV pk grad 4 mmHg SSM CV FU JI PACS IVC size 0.9 cm SSM CV FUJ I PACS LA ESV INDEX (BP) 24.49 ml/m2 SS M CV FUJI PACS Max Age Predicted HR 149 SSM CV FUJI PACS LA ESV A4C MOD Index 24 ml/m2 SSM CV FUJI PACS LA ESV A2C MOD Index 24 ml/m2 SSM CV FUJI PACS Target HR 127 SSM CV FUJ I PACS [id number] 6.546 cm SSM CV FUJ I PACS [id number] 7.016 cm SSM CV FUJ I PACS LA Size 3.604 cm SSM CV FUJ I PACS LV stroke vol BP 60.425 mL SSM CV FUJI PACS LVIDs index 1.37 1.3 - 2.1 cm/m2 SSM CV FUJI PACS LV LVIDd index 2.11 2.3 - 3.1 cm/m2 SSM CV FUJI PACS RV-bey basal diam 3.2 2.5 - 4.1 cm SSM CV FUJI PACS RVSP 30.0 mmHg SSM CV FUJ I PACS RAP 5.0 mmHg SSM CV FUJ I PACS Anatomical Region Laterality Modality Ultrasound Narrative 11/26/2022 4:04 PM CDT Left Ventricle: Left ventricle size is normal. Normal wall thickness. Ventricular mass is normal. Normal systolic function. Normal wall motion. Normal diastolic function. This is a normal Doppler-echocardiographic cardiac study Left Ventricle Left ventricle size is normal. Normal wall thickness. Ventricular mass is normal. Normal systolic function. Normal wall motion. Normal diastolic function. Right Ventricle Right ventricle size is normal. Normal systolic function. Left Atrium Left atrium size is normal. Left atrium volume index is 24.5 mL/m2. Right Atrium Right atrium size is normal. IVC/SVC IVC diameter is less than or equal to 21 mm and decreases greater than 50% during inspiration; therefore the estimated right atrial pressure is normal (~3 mmHg). Mitral Valve Valve structure is normal. No restricted motion. Trace regurgitation. No stenosis. Tricuspid Valve Valve structure is normal. No restricted motion. Trace regurgitation. No stenosis. Aortic Valve Valve structure is trileaflet. No restricted motion. No regurgitation. No stenosis. Pulmonic Valve Valve structure is normal. No restricted motion. No regurgitation. No stenosis. Ascending Aorta Normal sized sinus of Valsalva (aortic root) and ascending aorta. Pericardium No pericardial effusion. Study Details Study quality was fair. A complete 2D, color Doppler, spectral Doppler and M- mode echocardiogram was performed. The apical, parasternal, subcostal and suprasternal views were obtained. Procedure Note Watson Monreal MD - 11/26/2022 Left Ventricle: Left ventricle size is normal. Normal wall thickness.Ventricular mass is normal. Normal systolic function. Normal wall motion.Normal diastolic function. This is a normal Doppler-echocardiographic cardiac study Redd Middleton MD ECHO CUPID * PET CT SKULL TO MID THIGH (11/25/2022 9:38 AM CDT) Anatomical Region Laterality Modality Head, Lower Extremity Positron E mission Tomography (PET) 11/25/2022 8:59 AM CDT Impressions 11/25/2022 2:56 PM CDT IMPRESSION: 1.2.3 cm FDG avid left breast nodule is compatible with the biopsy-proven carcinoma. 2.Several enlarged FDG avid left axillary lymph nodes are compatible with biopsy proven driss metastases. 3.There is a small focus of intense FDG uptake in the medial aspect of right proximal thigh, likely in the right inguinal crease, which may represent infectious or inflammatory changes. Recommend clinical correlation. Otherwise no evidence of distant metastases. > Dictated by Lanette Flores MD (vice president tax). > Dictated by Lanette Flores (Vertical Mill Operator) 11/25/2022 8:59 AM Neftali Link DO have personally reviewed and interpreted this examination/study. > Interpreting Provider: Neftali Machado DO on 11/25/2022 2:56 PM Narrative 11/25/2022 2:56 PM CDT EXAMINATION: PET CT SKULL TO MID THIGH DATE/TIME OF EXAM: 11/25/2022 7:44 AM, LOCATION [facility] REFERRING PHYSICIAN: Redd Carlisle HISTORY: C50.412: Malignant neoplasm of upper-outer quadrant of left breast in female, estrogen receptor negative (CMS/HCC) 72-year-old female with A-fib on Eliquis and DMII p/w newly diagnosed left breast cancer and left axillary node metastasis. Evaluate for new treatment strategy. COMPARISON: Bilateral diagnostic mammography dated 10/29/2022, left breast ultrasound dated 10/29/2022 TECHNIQUE: 10.73 mCi of F-18 FDG by IV in the left hand. PET/CT image acquisition from top of the head to mid thigh after approximately 60 minutes post-injection with the CT being low-dose, non-contrast. No separate report for the CT. CT was used for attenuation correction and anatomic localization. Blood glucose level at the time of injection was 111 mg/dl. Patient's BMI is 36.8 kg/m. FINDINGS: For reference, SUVmax of liver is 4.0. Head and neck: There is physiological FDG activity throughout the brain parenchyma. Nonspecific uptake is seen in the nasal, oral, pharyngeal and laryngeal regions and salivary glands. No hypermetabolic or enlarged cervical lymph node is identified. The thyroid gland is unremarkable. No abnormal radiotracer focus is present. Chest: There is a 2.3 cm ovoid FDG avid left breast nodule with SUV max of 10.6. There is diffuse overlying skin thickening with moderately increased FDG uptake with SUV max of 2.4. Several enlarged FDG avid left axillary lymph nodes, some with calcifications, with the largest one measuring 3.1 cm in short axis with SUV max of 17.0. No enlarged or FDG avid right axillary nodes. The lungs are clear of focal consolidation. There is no evidence of pneumothorax or pleural effusion. No suspicious hypermetabolic pulmonary nodule is identified. No abnormal FDG avid mediastinal nodes. 7 mm precarinal lymph node without increased FDG uptake is nonspecific. The heart size is normal. No pericardial effusion. Scattered coronary artery calcification. Chest port is present in the right upper chest, terminating in the superior cavoatrial junction. Abdomen and pelvis: The liver, gallbladder, kidneys, adrenal glands, spleen and pancreas are grossly unremarkable. Normal FDG activity is seen throughout the bowel. There is no hypermetabolic or enlarged abdominal or pelvic lymphadenopathy. 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 No free air or free fluid is identified in the abdomen or pelvis. Benign-appearing bilateral inguinal nodes. Musculoskeletal: Incidentally noted elastofibroma dorsi bilaterally. No abnormal FDG avid lytic or sclerotic lesions are identified. There is a small focus of intense FDG uptake overlying the medial aspect of the right proximal thigh with SUV max of 6.4, likely in the right inguinal crease, which may represent infectious or inflammatory changes. Grade 1 anterolisthesis of L5 on S1. Mild multilevel degenerative changes of the spine. Procedure Note Neftali Machado DO - 11/25/2022 EXAMINATION: PET CT SKULL TO MID THIGH DATE/TIME OF EXAM: 37:44 AM, LOCATION [facility] REFERRING PHYSICIAN: Redd Carlisle HISTORY: C50.412: Malignant neoplasm of upper-outer quadrant of leftbreast in female, estrogen receptor negative (CMS/HCC) 72-year-old female with A-fib on Eliquis and DMII p/w newly diagnosed left breast cancer andleft axillary node metastasis. Evaluate for new treatment strategy. COMPARISON: Bilateral diagnostic mammography dated 10/29/2022, leftbreast ultrasound dated 10/29/2022 TECHNIQUE: 10.73 mCi of F-18 FDG by IV in the left hand. PET/CT image acquisition from top of the head to mid thigh after approximately 60 minutes post-injection with the CT being low-dose, non-contrast. No separate report for the CT. CT was used for attenuation correction and anatomic localization. Blood glucose level at the time of injection rxo238 mg/dl. Patient's BMI is 36.8 kg/m. FINDINGS: For reference, SUVmax of liver is 4.0. Head and neck: There is physiological FDG activity throughout the brain parenchyma. Nonspecific uptake is seen in the nasal, oral, pharyngealand laryngeal regions and salivary glands. No hypermetabolic or enlarged cervical lymph node is identified. The thyroid gland is unremarkable.No abnormal radiotracer focus is present. Chest: There is a 2.3 cm ovoid FDG avid left breast nodule with SUV maxof 10.6. There is diffuse overlying skin thickening with moderatelyincreased FDG uptake with SUV max of 2.4. Several enlarged FDG avid left axillary lymph nodes, some with calcifications, with the largest one measuring3.1 cm in short axis with SUV max of 17.0. No enlarged or FDG avid right axillary nodes. The lungs are clear of focal consolidation. There is no evidence of pneumothorax or pleural effusion. No suspicioushypermetabolic pulmonary nodule is identified. No abnormal FDG avid mediastinal nodes.7 mm precarinal lymph node without increased FDG uptake is nonspecific.The heart size is normal. No pericardial effusion. Scattered coronary artery calcification. Chest port is present in the right upper chest, terminating in thesuperior cavoatrial junction. Abdomen and pelvis: The liver, gallbladder, kidneys, adrenal glands,spleen and pancreas are grossly unremarkable. Normal FDG activity is seen throughout the bowel. There is no hypermetabolic or enlarged abdominalor pelvic lymphadenopathy. 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 No freeair or free fluid is identified in the abdomen or pelvis. Benign-appearing bilateral inguinal nodes. Musculoskeletal: Incidentally noted elastofibroma dorsi bilaterally. No abnormal FDG avid lytic or sclerotic lesions are identified. There is a small focus of intense FDG uptake overlying the medial aspect of theright proximal thigh with SUV max of 6.4, likely in the right inguinal crease, which may represent infectious or inflammatory changes. Grade 1 anterolisthesis of L5 on S1. Mild multilevel degenerative changes of the spine. IMPRESSION: 1.2.3 cm FDG avid left breast nodule is compatible with thebiopsy-proven carcinoma. 2.Several enlarged FDG avid left axillary lymph nodes are compatiblewith biopsy proven driss metastases. 3.There is a small focus of intense FDG uptake in the medial aspect of right proximal thigh, likely in the right inguinal crease, which may represent infectious or inflammatory changes. Recommend clinical correlation. Otherwise no evidence of distant metastases. > Dictated by Lanette Flores MD (vice president tax). > Dictated by Lanette Flores (Vertical Mill Operator) 11/25/2022 8:59 AM Neftali Link DO have personally reviewed and interpreted this examination/study. > Interpreting Provider: Neftali Machado DO on 11/25/2022 2:56 PM Redd Middleton MD NM ORDERABLES * (ABNORMAL) GLUCOSE SCREEN - POCT (IP) [facility] (11/25/2022 7:36 AM CDT) Glucose WB/POC 117(A) 70 - 115 mg/dL [facility] POCT TESTING Blood BLOOD SPECIMEN / Unknown 11/25/2022 7:36 AM CDT Redd Middleton MD LAB - POINT OF CARE ORDERABLES [facility] POCT TESTING [address] [place] [address], [facility] [phone] * IR AGUEDA CATH INSERT (11/24/2022 10:46 AM CDT) Anatomical Region Laterality Modality Chest X-Ray Angiograph y 11/24/2022 11:0 1 AM CDT Impressions 11/24/2022 11:05 AM CDT IMPRESSION: Technically successful ultrasound and fluoroscopic guided PowerPort placement as described via Right internal jugular vein access. The catheter is cleared for immediate use. > Interpreting Provider: Tricia Lanza MD on 11/24/2022 11:05 AM Narrative 11/24/2022 11:05 AM CDT PROCEDURE: IR AGUEDA CATH INSERT DATE/TIME OF EXAM: 11/24/2022 10:47 AM CLINICAL INFORMATION: None relevant/not provided if blank. Indication: C50.412: Malignant neoplasm of upper-outer quadrant of left breast in female, estrogen receptor negative (CMS/HCC) Z17.1: Malignant neoplasm of upper-outer quadrant of left breast in female, estrogen receptor negative (CMS/HCC) Additional History: COMPARISON: None. Real Estate Representative:Pauline Parks MD Protective Signal Installer Helper: Tricia Mack FLUOROSCOPY DOSE: 8.1 mGy Reference air kerma (ka,r). PROCEDURE: Following informed consent, the patient was taken to the angiography suite and placed on the fluoroscopy table. The skin of the Right neck and chest was prepared with chlorhexidine and sterile drapes were applied. Limited ultrasound of the (Right) lower neck demonstrated a patent and compressible internal jugular vein. A balderas scale image was documented and saved to the PACS. Under real time ultrasound guidance, using a micropuncture needle, the (Right) internal jugular vein was accessed. The needle entry was documented and an image was saved to the PACS. A microfilament wire was advanced to the central veins under fluoroscopic guidance. This allowed the placement of a 5 Turkish sheath which in turn allowed the placement of a 0.035 guidewire which was manipulated into the IVC. A site for the port was chosen on the chest wall and anesthetized with lidocaine. A 1 inch incision was made and a subcutaneous pocket was created by blunt dissection. Using a metal tunneling device, the catheter was brought through a subcutaneous tunnel to the venotomy incision and prepared for insertion. A peel-away sheath was inserted over the guidewire and the inner stylet was removed. The catheter was inserted through the sheath which was then removed. The catheter was adjusted for length under fluoroscopy such that the tip was at the junction of the SVC and RA and cut at 26cm. The port was attached and flushed easily and where locked with heparin and inserted into the subcutaneous pocket. The subcutaneous tissue was approximated with interrupted 3-0 Vicryl and the incision was closed with a running 4-0 Vicryl subcuticular suture. The wound and the venotomy incision were sealed with Exofin. A Telfa and Tegaderm dressing was applied. Moderate sedation on this adult patient was ordered by me, administered intravenously in my presence, and monitored by the procedure nurse as an independent trained observer who was present throughout the procedure. The following parameters were monitored: oxygen saturation, heart rate, blood pressure, and response to care. Intra-service sedation start time was 0958 and end time was 1045 during which I was present. Total physician intra-service sedation time was 47 minutes. For details on pre-moderate sedation and post-moderate sedation patient evaluation, please review the evaluation forms in [facility]. For details on monitored clinical parameters during the intra-service sedation time, please review the procedure nurse documentation in [facility]. I was present for the entire procedure. FINDINGS: The Right internal jugular vein is patent and compressible. Final film demonstrates satisfactory position of the port with the tip at the cavoatrial junction. Procedure Note Tricia Lanza MD - 11/24/2022 PROCEDURE: IR AGUEDA CATH INSERT DATE/TIME OF EXAM: 11/24/2022 10:47 AM CLINICAL INFORMATION: None relevant/not provided if blank. Indication: C50.412: Malignant neoplasm of upper-outer quadrant of left breast in female, estrogen receptor negative (CMS/HCC) Z17.1: Malignant neoplasm of upper-outer quadrant of left breast infemale, estrogen receptor negative (CMS/HCC) Additional History: COMPARISON: None. Real Estate Representative:Pauline Parks MD Protective Signal Installer Helper: Tricia Mack FLUOROSCOPY DOSE: 8.1 mGy Reference air kerma (ka,r). PROCEDURE: Following informed consent, the patient was taken to the angiographysuite and placed on the fluoroscopy table. The skin of the Right neck andchest was prepared with chlorhexidine and sterile drapes were applied. Limited ultrasound of the (Right) lower neck demonstrated a patent andcompressible internal jugular vein. A balderas scale image was documented and saved tothe PACS. Under real time ultrasound guidance, using a micropuncture needle, the (Right) internal jugular vein was accessed. The needle entry was documented and an image was saved to the PACS. A microfilament wire was advanced to the central veins under fluoroscopic guidance. This allowedthe placement of a 5 Turkish sheath which in turn allowed the placement of a 0.035 guidewire which was manipulated into the IVC. A site for the portwas chosen on the chest wall and anesthetized with lidocaine. A 1 inchincision was made and a subcutaneous pocket was created by blunt dissection. Usinga metal tunneling device, the catheter was brought through a subcutaneous tunnel to the venotomy incision and prepared for insertion. A peel-away sheath was inserted over the guidewire and the inner stylet was removed. The catheter was inserted through the sheath which was then removed. The catheter was adjusted for length under fluoroscopy such that the tip wasat the junction of the SVC and RA and cut at 26cm. The port was attachedand flushed easily and where locked with heparin and inserted into the subcutaneous pocket. The subcutaneous tissue was approximated with interrupted 3-0 Vicryl and the incision was closed with a running 4-0 Vicryl subcuticular suture. The wound and the venotomy incision weresealed with Exofin. A Telfa and Tegaderm dressing was applied. Moderate sedation on this adult patient was ordered by me, administered intravenously in my presence, and monitored by the procedure nurse as an independent trained observer who was present throughout the procedure.The following parameters were monitored: oxygen saturation, heart rate,blood pressure, and response to care. Intra-service sedation start time [id number] and end time was 1045 during which I was present. Total physician intra-service sedation time was 47 minutes. For details on pre-moderate sedation and post-moderate sedation patient evaluation, please reviewthe evaluation forms in [facility]. For details on monitored clinical parameters during the intra-service sedation time, please review the procedurenurse documentation in [facility]. I was present for the entire procedure. FINDINGS: The Right internal jugular vein is patent and compressible. Final film demonstrates satisfactory position of the port with the tip at the cavoatrial junction. IMPRESSION: Technically successful ultrasound and fluoroscopic guided PowerPort placement as described via Right internal jugular vein access. Thecatheter is cleared for immediate use. > Interpreting Provider: Tricia Lanza MD on 11/24/2022 11:05 AM Redd Middleton MD IR ORDERABLES * US BREAST LEFT BIOPSY (11/01/2022 2:06 PM CDT) Anatomical Region Laterality Modality Breast Left Mammography Biopsy specimen, unspecified 11/01/2022 1:56 PM CDT Addenda Addendum by Norma Carrasquillo MD on 11/05/2022 1:19 PM CDT ADDENDUM: PATHOLOGY RESULTS x 2 LOCATION: [facility] DATE OF ADDENDUM: 11/05/2022 1:13 PM Pathology report per Dr. Dalia Weber. Report from biopsy site A in the 1:00 of the left breast demonstrates an invasive ductal carcinoma, Dinorah grade 2-3. Tumor is at least 18 mm in greatest dimension on the sample. ER negative, IL negative, HER-2 negative. This is a malignant lesion The pathology report is concordant with the imaging findings. Report from biopsy site B from the left axillary lymph node demonstrates metastatic carcinoma, similar morphology to the primary breast malignancy. This is a malignant lesion The pathology report is concordant with the imaging findings. Recommend breast surgical consultation and breast MRI. Crys Timmons RN will notify the patient of the biopsy findings and recommendations on 11/05/2022. She will assist the patient with breast MRI and breast surgical consultation. Results were also provided to the referring physician via [employer]. > Interpreting Provider: Norma Carrasquillo MD on 11/05/2022 1:16 PM Impressions 11/01/2022 3:06 PM CDT : 1. Technically successful, uncomplicated ultrasound-guided core biopsy performed of a 2.9 cm mass in the 1 o'clock position, 11 cm from the nipple, of the LEFT breast. 2. A HydroMARK barrel-shaped tissue marker clip was placed at the biopsy site. Clip is in good position at the biopsy site. Please refer to the separate report for left axillary lymph node biopsy. 3. Pathology results are pending. We will notify the patients of the pathology findings and recommendations. An addendum will be rendered to this report when the pathology results are made available. The report was drafted by Loida Phipps MD (Vertical Mill Operator). I, Norma Carrasquillo MD have personally reviewed and interpreted this examination/study. > Interpreting Provider: Norma Carrasquillo MD on 11/01/2022 3:06 PM Narrative 11/01/2022 3:06 PM CDT EXAM: 1. ULTRASOUND-GUIDED LEFT BREAST BIOPSY AND 2. POST BIOPSY DIGITAL MAMMOGRAM LEFT BREAST (COMBINED REPORT) LOCATION: [facility] EXAM DATE: 11/01/2022 CLINICAL INFORMATION: 72-year-old female initially presented with new palpable left breast mass for 2 weeks on breast imaging on 10/29/2022, a 2.9 cm irregular mass in 1:00, 11 cm from the nipple. Multiple bulky left axillary lymph nodes are seen. Patient presents today for biopsy of the lower o'clock left breast mass and axillary lymph node. Please also refer to left axillary breast biopsy same day. COMPARISON: Prior breast imaging studies from [facility], dated 10/29/2022. TECHNIQUE AND FINDINGS: Preprocedure images were reviewed. The procedure and its risks and benefits were discussed with the patient, including, but not limited to, bleeding, infection, allergy, and nondiagnostic specimen. Written and verbal informed consent was obtained and documented. After confirming the correct breast for biopsy, the breast was marked with a marking pen. The patient was then placed in a supine position on the ultrasound table. Prior to the procedure a hospital timeout procedure was performed, including verification of the laterality of the breast for biopsy. Ultrasound was performed for location of the lesion. The 2.9 cm mass in the 1 o'clock position, 11 cm from the nipple, was localized with ultrasound guidance. The breast was cleansed with ChloraPrep and draped in a sterile fashion. Local anesthesia was given with 3 cc of 1% Lidocaine, buffered with Sodium Bicarbonate within the skin and deeper anesthesia with 9 cc of 1% Lidocaine with Epinephrine, buffered withSodium Bicarbonate. A small skin incision was made with a #11 scalpel blade, and through it a 12-gauge Elevation with an introducer was inserted to the depth of the lesion from a lateral approach. 4 biopsy samples were obtained through the lesion. A HydroMARK barrel-shaped tissue marker clip was placed at the biopsy site and a post biopsy sonogram demonstrated no evidence for hematoma about the biopsy site. Hemostasis was achieved, and the small wound was closed with Exofin. Estimated blood loss: Minimal The tissue samples were placed in formalin and delivered to the pathology department by the technologist. Mammogram: A two-view LEFT digital mammogram with CC and true lateral projections was obtained to check clip placement. Breast Composition: Category B: There are scattered areas of fibroglandular density. The HydroMARK barrel-shaped clip is in good position at the biopsy site. The twirl-shaped clip is in good position at the left axilla biopsy site. Assessment: Postprocedure mammogram for marker placement The patient tolerated the procedure well, with no immediate post biopsy complications. The patient was given verbal, as well as written postprocedure instructions (including Exofin instructions) and was released from the department in good condition. Loida Clayton MD (vice president tax) performed the procedure. The attending physician, Norma Carrasquillo M.D., was present for and supervised the entire procedure. Tomi Root BLADE WORKER-NEON TECHNICIAN US ORDE RABLES * US AXILLA LEFT BIOPSY (11/01/2022 1:59 PM CDT) Anatomical Region Laterality Modality Breast Left Mammography 11/01/2022 2:42 PM CDT Addenda Addendum by Norma Carrasquillo MD on 11/05/2022 1:18 PM CDT ADDENDUM: PATHOLOGY RESULTS x 2 LOCATION: [facility] DATE OF ADDENDUM: 11/05/2022 1:13 PM Pathology report per Dr. Dalia Weber. Report from biopsy site A in the 1:00 of the left breast demonstrates an invasive ductal carcinoma, Algoma grade 2-3. Tumor is at least 18 mm in greatest dimension on the sample. ER negative, IL negative, HER-2 negative. This is a malignant lesion The pathology report is concordant with the imaging findings. Report from biopsy site B from the left axillary lymph node demonstrates metastatic carcinoma, similar morphology to the primary breast malignancy. This is a malignant lesion The pathology report is concordant with the imaging findings. Recommend breast surgical consultation and breast MRI. Crys Timmons RN will notify the patient of the biopsy findings and recommendations on 11/05/2022. She will assist the patient with breast MRI and breast surgical consultation. Results were also provided to the referring physician via [employer]. > Interpreting Provider: Norma Carrasquillo MD on 11/05/2022 1:16 PM Impressions 11/01/2022 3:09 PM CDT : 1. Technically successful, uncomplicated ultrasound-guided core biopsy performed of a left axillary lymph node. 2. A twirl-shaped tissue marker clip was placed at the biopsy site. Clip is in good position at the biopsy site. Please refer to post breast biopsy mammogram for the breast biopsy. 3. Pathology results are pending. We will notify the patients of the pathology findings and recommendations. An addendum will be rendered to this report when the pathology results are made available. The report was drafted by Loida Phipps MD (Vertical Mill Operator). I, Norma Carrasquillo MD have personally reviewed and interpreted this examination/study. > Interpreting Provider: Norma Carrasquillo MD on 11/01/2022 3:09 PM Narrative 11/01/2022 3:09 PM CDT EXAM: 1. ULTRASOUND-GUIDED LEFT AXILLA AND 2. POST BIOPSY DIGITAL MAMMOGRAM LEFT (COMBINED REPORT) LOCATION: [facility] EXAM DATE: 11/01/2022 CLINICAL INFORMATION: 72-year-old female initially presented with new palpable left breast mass for 2 weeks. On breast imaging on 10/29/2022, a 2.9 cm irregular mass in 1:00, 11 cm from the nipple. Multiple bulky left axillary lymph nodes are seen. Patient presents today for biopsy of the lower o'clock left breast mass and axillary lymph node. Please refer to the left breast biopsies separate report. COMPARISON: Prior breast imaging studies from [facility], dated 10/29/2022. TECHNIQUE AND FINDINGS: Preprocedure images were reviewed. The procedure and its risks and benefits were discussed with the patient, including, but not limited to, bleeding, infection, allergy, and nondiagnostic specimen. Written and verbal informed consent was obtained and documented. After confirming the correct breast for biopsy, the breast was marked with a marking pen. The patient was then placed in a supine position on the ultrasound table. Prior to the procedure a hospital timeout procedure was performed, including verification of the laterality of the breast for biopsy. Ultrasound was performed for location of the lesion. The left axillary lymph node, was localized with ultrasound guidance. The breast was cleansed with ChloraPrep and draped in a sterile fashion. Local anesthesia was given with 4 cc of 1% Lidocaine, buffered with Sodium Bicarbonate within the skin and deeper anesthesia with 9 cc of 1% Lidocaine with Epinephrine, buffered withSodium Bicarbonate. A small skin incision was made with a #11 scalpel blade, and through it a 12-gauge Marquee biopsy needle with an introducer was inserted to the depth of the lesion from a lateral approach. 3 biopsy samples were obtained through the lesion. A twirl-shaped tissue marker clip was placed at the left axillary biopsy site and a post biopsy sonogram demonstrated no evidence for hematoma about the biopsy site. A HydroMARK barrel-shaped tissue marker clip was placed at the breast biopsy site and a post biopsy sonogram demonstrated no evidence for hematoma about the biopsy site. The clips are 14 cm apart from one another on the MLO view. Hemostasis was achieved, and the small wound was closed with Exofin. Estimated blood loss: Minimal The tissue samples were placed in formalin and delivered to the pathology department by the technologist. The patient tolerated the procedure well, with no immediate post biopsy complications. The patient was given verbal, as well as written postprocedure instructions (including Exofin instructions) and was released from the department in good condition. Loida Phipps MD (surgeon/president) performed the procedure. The attending physician, Norma Carrasquillo M.D., was present for and supervised the entire procedure. Tomi Root BLADE WORKER-NEON TECHNICIAN US ORDE RABTIAGO * (ABNORMAL) US BREAST LEFT COMPLETE (SCREENING ONLY) (10/29/2022 9:50 AM CDT) Anatomical Region Laterality Modality Breast Left Mammography 10/29/2022 8:52 AM CDT Impressions 10/29/2022 5:20 PM CDT : 1. Left 1:00, 1 cm from the nipple, a 2.9 cm irregular hypoechoic mass corresponds to the patient's palpable abnormality and is highly suggestive of malignancy. 2. Bulky left axillary lymphadenopathy, highly suggestive of metastatic disease. The largest lymph node measures up to 3.8 cm with near complete effacement of the fatty hilum and evidence of partial necrosis. 3. Diffuse unilateral skin and trabecular thickening of the left breast, consistent with edema. Primary differential considerations include lymphatic obstruction related to bulky left axillary adenopathy versus inflammatory breast cancer. 4. No mammographic evidence of right breast malignancy. RECOMMENDATION: 1. Ultrasound-guided left breast biopsy targeting the patient's palpable 1:00 breast mass. 2. Ultrasound-guided biopsy of the left axilla The above findings and recommendations were discussed with the patient by Dr. Mancia at the conclusion of her examination. The patient will meet with our breast center nurse navigator, Pat Marr RN, who will assist the patient in scheduling the above recommended procedures. OVERALL ASSESSMENT: BI-RADS CATEGORY 5: HIGHLY SUGGESTIVE OF MALIGNANCY. > Interpreting Provider: Alondra Mancia DO on 10/29/2022 5:20 PM Narrative 10/29/2022 5:20 PM CDT EXAMINATIONS: 1. DIGITAL MAMMO BILAT DIAGNOSTIC W CHARLES WITH CAD AND 2. COMPLETE LEFT BREAST ULTRASOUND (COMBINED REPORT) LOCATION: [facility] EXAM DATE: 10/29/2022 HISTORY: 72-year-old female presents for imaging evaluation with complaints of a new palpable left breast mass for 2 weeks as well as hardening/thickening of the left nipple. Patient denies nipple discharge. She has a family history of breast cancer in her mother and sister. RISK ASSESSMENT CALCULATION: COMPARISON: No prior mammograms are available for comparison at this time. The patient does indicate she has had prior mammography performed at [facility] in 2014. Requested and made to retrieve the patient's prior films. BILATERAL DIAGNOSTIC MAMMOGRAM: TECHNIQUE: Diagnostic bilateral mammography was performed. Tomosynthesis (3-D) and reconstructed synthetic 2-D images acquired. In addition to conventional CC and MLO views of each breast, bilateral spot compression and full-field true lateral views were also obtained. A total of 12 images were acquired. Computer-aided detection (CAD) was utilized. Triangular-shaped marker placed on a palpable abnormality in the left breast. BREAST COMPOSITION: Category A: The breasts are almost entirely fatty. FINDINGS: Right breast: There is no mammographic evidence of right breast malignancy. Left breast: A radiopaque triangular marker on the skin of the upper outer left breast indicates the site of patient's palpable abnormality. Subadjacent to the radiopaque marker, in the upper outer left breast, middle to posterior depth, there is a microlobulated equal density mass with associated architectural distortion. This mass measures up to 2.3 cm on mammography and is located approximately 7 cm from the nipple. This finding is most conspicuous on CC spot compression slice 15/23 and MLO spot compression slice 12/23. There is diffuse skin and trabecular thickening of the left breast consistent with edema. There is a partially visualized asymmetry in the deep left axilla seen on the full field MLO view only, suggesting the possibility of underlying left axillary lymphadenopathy. There are no suspicious or grouped microcalcifications. COMPLETE LEFT BREAST ULTRASOUND: Scanning was performed of the left breast to include all 4 quadrants and the subareolar region with special attention to the upper outer quadrant in the region of patient's palpable abnormality. The left axilla was also scanned. Sonography was performed by both the technologist and by Dr. Mancia. FINDINGS: At left 1:00, 11 cm from the nipple, middle to posterior depth, there is an irregular hypoechoic mass with microlobulated and angular margins measuring 2.9 x 1.8 x 2.6 cm. There is increased peripheral and internal vascular flow. This mass corresponds to to a microlobulated mass in the upper outer left breast on mammography and to the patient's palpable area of concern. There is moderate diffuse left breast skin thickening and interstitial edema throughout the left breast. There are several morphologically abnormal and enlarged left axillary lymph nodes, including a 2.8 x 2.5 cm hypoechoic mass highly suggestive of a necrotic metastatic lymph node. Ernesto Alfaro MD US ORDERABLES * NICOTINE + METABOLITES URINE (10/05/2022 7:33 AM CDT) Only the most recent of3 resultswithin the time period is included. Nicotine Urine see scanned report 10/09/2022 5:46 PM CDT [facility] ([facility]) Urine URINE / Unknown Collection / Unknown 10/05/2022 7:33 AM CDT 10/05/2022 7:39 AM CDT Grecia Cain MD LAB - URINE SNAG GRINDER RY ORDERABLES [facility]) [address] [place] [address], [facility] * NICOTINE + METABOLITES BLOOD (06/04/2022 3:36 PM CDT) Nicotine 23 ng/mL 06/08/2022 9:12 PM CDT [facility] ([facility]) Comment: Consistent with use of a nicotine-containing product within 48 hours of specimen collection. Nicotine is metabolized to cotinine. INTERPRETIVE INFORMATION: Nicotine and Metabolites, Serum or Plasma, Quantitative Methodology: Quantitative Liquid Chromatography-Tandem Mass Spectrometry Positive cutoff: 5 ng/mL For medical purposes only; not valid for forensic use. This test is designed to evaluate recent use of nicotine-containing products. Passive and active exposure cannot be discriminated definitively, although a cutoff of 10 ng/mL cotinine is frequently used for surgery qualification purposes. For smoking cessation programs or compliance testing, the absence of expected drug(s) and/or drug metabolite(s) may indicate non-compliance, inappropriate timing of specimen collection relative to drug administration, poor drug absorption, or limitations of testing. This test cannot distinguish between use of tobacco and purified nicotine products. The concentration value must be greater than or equal to the cutoff to be reported as positive. This test was developed and its performance characteristics determined by [facility]. It has not been cleared or approved by the [place] Food and Drug Administration. This test was performed in a CLIA certified laboratory and is intended for clinical purposes. Performed By: [facility] [address] [id number] Line Mover: Federico Sanderson MD, PhD Cotinine 425 ng/mL 06/08/2022 9:12 PM CDT [facility] ([facility]) Blood BLOOD SPECIMEN / Unknown Venipuncture / Unknown 06/04/2022 3:36 PM CDT 06/04/2022 3:45 PM CDT Grecia Cain MD LAB - CHEMISTRY ORD ERABLES [facility] ([facility]) [address] [place] [address], [facility] * CT ANGIO LOWER EXTREMITY RIGHT (06/04/2022 7:47 AM CDT) Anatomical Region Laterality Modality Lower Extremity Computed Tomogra phy 06/04/2022 11:1 5 AM CDT Impressions 06/04/2022 2:54 PM CDT Impression: 1.Flow related enhancement noted throughout the entirety of the right posterior tibial artery with 4 perforators identified. 2.Soft tissue defect over the medial distal tibia measuring 2.6 cm with inflammatory changes which is compatible with cellulitis. No abscess is seen. 3.Unchanged area of osseous erosion adjacent to the medial malleolus may be related to underlying osteomyelitis. 4.Profound loss of calcaneal mineralization. 5.Multifocal areas of moderate stenosis within the right SFA with focal area of moderate to severe narrowing in the proximal SFA immediately distal to the origin.. Up to 50% stenosis in the distal popliteal artery is present with distal three-vessel runoff. 6.[id number] degenerative changes of the right knee. 7.Severe degenerative changes of the right tibiotalar joint. 8.Partially visualized minimal stranding involving the mid mesentery is nonspecific and may be related to a component of mesenteritis. > Dictated by Torin Tadeo MD, PhD (vice president tax). I, Yefri Parker have personally reviewed and interpreted this examination/study. > Interpreting Provider: Yefri Parker on 06/04/2022 2:54 PM Narrative 06/04/2022 2:54 PM CDT PROCEDURE: CT ANGIO LOWER EXTREMITY RIGHT, DATE/TIME OF EXAM: 06/04/2022 7:48 AM, LOCATION [facility] INDICATION: S91.001A: Wound of right ankle, initial encounter ADDITIONAL CLINICAL INFORMATION: Ordering Provider Reason For Exam: eval for PT perforators, preop planning Technologist Note: Additional: 72-year-old femalehere today for reconstruction of right ankle wound via propellar flap COMPARISON: CT right tibia-fibula with contrast from 02/16/2022. TECHNIQUE: CT angiography of the right tibia/fibula was performed following the uneventful administration of 100 mL of Isovue 370 intravenous contrast according to standard protocol. Three dimensional postprocessing was performed by the technologist and sent to the workstation for review. Findings: Partially visualized infrarenal abdominal aorta: Atherosclerotic without hemodynamically significant stenosis. There is mild anterior atherosclerotic plaque at the common iliac bifurcation with mild extension. No aneurysm is seen. Atherosclerotic disease also noted to the partially visualized left common iliac artery. Right common iliac artery: Atherosclerotic with moderate multifocal stenoses. Right internal iliac artery: Atherosclerotic with mild multifocal stenoses. Right external iliac artery: Atherosclerotic with mild multifocal stenoses. Right common femoral artery: Atherosclerotic with mild multifocal stenoses. Right profunda femoris artery: Atherosclerotic with mild multifocal stenoses. Right superficial femoral artery: Atherosclerotic with moderate multifocal stenoses. Additionally there appears to be focal area of moderate to severe stenosis at the proximal SFA immediately distal to the origin (series 5 images, 54). Right popliteal artery: Atherosclerotic with moderate multifocal stenoses. There is no hemodynamically significant stenosis. There is atheromatous plaque creating approximately 50% stenosis in the distal segment (series 5, image 116). Right anterior tibial artery: Patent without significant focal stenosis. This vessel crosses the ankle and supplies the dorsalis pedis artery. Right tibioperoneal trunk: Patent without significant focal stenosis. Right posterior tibial artery: Patent without significant focal stenosis. The plantar artery intraluminal contrast terminates at the level the calcaneus (series 5, image 198) Right peroneal artery: Patent without significant focal stenosis. There appears to be 4 perforators arising from the right posterior tibial artery and is seen on series 6 images 1005, 1119, 1127, 1262. Partially visualized stranding within the mid mesentery (series 5 image 19). Visualized portions of the abdomen and pelvis appear otherwise within normal limits. Bones: No acute fracture or dislocation. There is diffuse demineralization of the osseous structures. Cortical defect or erosive changes seen adjacent to the medial malleolus (series 7 image 62) appears unchanged since 02/16/2022. Circular cylindrical lucencies are seen in the mid and distal tibia, from prior surgical intervention. There is mild to moderate narrowing of the medial knee compartment. There is severe degenerative changes to the tibiotalar joint with subchondral sclerosis and lucencies. There is a profound loss of calcaneal mineralization (series 7, image 239). Soft tissues: There is a soft tissue defect over the medial distal tibia (series 7, image 181-224) extending approximately 2.6 cm. There is diffuse circumferential soft tissue stranding involving predominantly the medial aspects of the anterior and posterior compartments. There is no loculated fluid collection to suggest abscess. Procedure Note Yefri Parker MD - 06/04/2022 PROCEDURE: CT ANGIO LOWER EXTREMITY RIGHT, DATE/TIME OF EXAM:06/04/2022 7:48 AM, LOCATION [facility] INDICATION: S91.001A: Wound of right ankle, initial encounter ADDITIONAL CLINICAL INFORMATION: Ordering Provider Reason For Exam: eval for PT perforators, preopplanning Technologist Note: Additional: 72-year-old femalehere today for reconstruction of rightankle wound via propellar flap COMPARISON: CT right tibia-fibula with contrast from 02/16/2022. TECHNIQUE: CT angiography of the right tibia/fibula was performedfollowing the uneventful administration of 100 mL of Isovue 370 intravenouscontrast according to standard protocol. Three dimensional postprocessing was performed by the technologist and sent to the workstation for review. Findings: Partially visualized infrarenal abdominal aorta: Atherosclerotic without hemodynamically significant stenosis. There is mild anterior atherosclerotic plaque at the common iliac bifurcation with mildextension. No aneurysm is seen. Atherosclerotic disease also noted to the partially visualized left common iliac artery. Right common iliac artery: Atherosclerotic with moderate multifocal stenoses. Right internal iliac artery: Atherosclerotic with mild multifocalstenoses. Right external iliac artery: Atherosclerotic with mild multifocalstenoses. Right common femoral artery: Atherosclerotic with mild multifocalstenoses. Right profunda femoris artery: Atherosclerotic with mild multifocal stenoses. Right superficial femoral artery: Atherosclerotic with moderatemultifocal stenoses. Additionally there appears to be focal area of moderate tosevere stenosis at the proximal SFA immediately distal to the origin (series 5 images, 54). Right popliteal artery: Atherosclerotic with moderate multifocalstenoses. There is no hemodynamically significant stenosis. There is atheromatous plaque creating approximately 50% stenosis in the distal segment (series5, image 116). Right anterior tibial artery: Patent without significant focal stenosis. This vessel crosses the ankle and supplies the dorsalis pedis artery. Right tibioperoneal trunk: Patent without significant focal stenosis. Right posterior tibial artery: Patent without significant focalstenosis. The plantar artery intraluminal contrast terminates at the level the calcaneus (series 5, image 198) Right peroneal artery: Patent without significant focal stenosis. There appears to be 4 perforators arising from the right posteriortibial artery and is seen on series 6 images 1005, 1119, 1127, 1262. Partially visualized stranding within the mid mesentery (series 5 image 19). Visualized portions of the abdomen and pelvis appear otherwisewithin normal limits. Bones: No acute fracture or dislocation. There is diffuse demineralization of the osseous structures. Cortical defect or erosive changes seen adjacent to the medial malleolus (series7 image 62) appears unchanged since 02/16/2022. Circular cylindrical lucencies are seen in the mid and distal tibia,from prior surgical intervention. There is mild to moderate narrowing of the medial knee compartment. There is severe degenerative changes to the tibiotalar joint with subchondral sclerosis and lucencies. There is a profound loss of calcaneal mineralization (series 7, [id number]). Soft tissues: There is a soft tissue defect over the medial distal tibia (series 7,image [id number]) extending approximately 2.6 cm. There is diffusecircumferential soft tissue stranding involving predominantly the medial aspects of the anterior and posterior compartments. There is no loculated fluidcollection to suggest abscess. Impression: 1.Flow related enhancement noted throughout the entirety of the right posterior tibial artery with 4 perforators identified. 2.Soft tissue defect over the medial distal tibia measuring 2.6 cm with inflammatory changes which is compatible with cellulitis. No abscess is seen. 3.Unchanged area of osseous erosion adjacent to the medial malleolus maybe related to underlying osteomyelitis. 4.Profound loss of calcaneal mineralization. 5.Multifocal areas of moderate stenosis within the right SFA with focal area of moderate to severe narrowing in the proximal SFA immediatelydistal to the origin.. Up to 50% stenosis in the distal popliteal artery is present with distal three-vessel runoff. 6.[id number] degenerative changes of the right knee. 7.Severe degenerative changes of the right tibiotalar joint. 8.Partially visualized minimal stranding involving the mid mesentery is nonspecific and may be related to a component of mesenteritis. > Dictated by Torin Tadeo MD, PhD (vice president tax). I, Yefri Parker have personally reviewed and interpreted this examination/study. > Interpreting Provider: Yefri Parker on 06/04/2022 2:54 PM Grecia Cain MD CT ORDERABLES * (ABNORMAL) CREATININE - POCT INTERFACED (06/04/2022 7:21 AM CDT) Pathologist [facility] Creatinine POCT 0.76 0.30 - 1.30 mg/dL 06/04/2022 7:33 AM CDT [facility] eGFR 84(L) >90 mL/min/1.7 3 m2 06/04/2022 7:33 AM CDT [facility] Blood BLOOD SPECIMEN / Unknown 06/04/2022 7:21 AM CDT 06/04/2022 7:33 AM CDT Grecia Cain MD LAB - POINT OF CARE ORDERABLES [address] [address], [facility] [phone] * LAB RESULTS ORDER (03/24/2022) Only the most recent of7 resultswithin the time period is included. 03/24/2022 Narrative 03/24/2022 Ordered by an unspecified provider. Scanned Document LAB - THERAPEUTIC DR PAYTON MONITORING ORDERABLES * IR PICC LINE INSERT (02/19/2022 11:50 AM [employer]) Only the most recent of2 resultswithin the time period is included. Anatomical Region Laterality Modality Chest, Upper Extremity X-Ray Ang iography 02/19/2022 2:06 PM [employer] Impressions 02/19/2022 2:08 PM [employer] IMPRESSION: Successful placement of right brachial upper extremity PICC line, using ultrasound and fluoroscopic guidance. Catheter is ready for immediate use. > Interpreting Provider: Norris Cheek MD on 02/19/2022 2:08 PM Narrative 02/19/2022 2:08 PM [employer] PROCEDURE: IR PICC LINE INSERT, DATE/TIME OF EXAM: 02/19/2022 11:50 AM, LOCATION [facility] INDICATION: M86.171: Osteomyelitis of ankle, right, acute (CMS/HCC) ADDITIONAL CLINICAL INFORMATION: Ordering Provider Reason For Exam: PICC placement for IV antibiotics Technologist Note: Additional: COMPARISON: None. FLUOROSCOPY DOSE: 1 mGy Reference air kerma (ka,r). PROCEDURE: This is an interventional nephrology procedure performed on February 19, 2022 Real Estate Representative: Norris Cheek Procedures performed: 1. Insertion of PICC line 2. Fluoroscopic guidance for central venous catheter procedure 3. Ultrasound guidance for vascular access with permanent recording This patient was referred for placement of a PICC Line for the administration of long-term antibiotics to treat ankle infection. Following informed consent the patient was taken to the angiography suite and placed on the fluoroscopy table. The skin of the right upper arm was prepared with chlorhexidine and sterile drapes were applied. Under real-time ultrasound guidance a brachial vein was cannulated with a micropuncture needle, a ellison scale image was recorded and a microfilament wire was advanced to the central veins under fluoroscopic guidance. This wire was utilized to measure an appropriate length of the catheter which in this case was 37 cm. Accordingly a 5 Turkish triple-lumen power PICC line was trimmed to this length and advanced over the guidewire with the aid of the peel-away sheath which was then removed. All lumens flushed easily and were locked with heparinized saline. The catheter was fixed in place with a stat lock device and a sterile CHG dressing was applied. Fluoroscopy confirmed the presence of the catheter tip in the SVC near the right atrium. I was present throughout the procedure. The patient tolerated the procedure well. There were no immediate complications. FINDINGS: The right brachial vein is patent and compressible. The final film demonstrates satisfactory position of the PICC line, with the tip at the junction of superior vena cava and right atrium. COMPLICATIONS: None immediate. Procedure Note Norris Cheek MD - 02/19/2022 PROCEDURE: IR PICC LINE INSERT, DATE/TIME OF EXAM: 02/19/2022 11:50 AM, LOCATION [facility] INDICATION: M86.171: Osteomyelitis of ankle, right, acute (CMS/HCC) ADDITIONAL CLINICAL INFORMATION: Ordering Provider Reason For Exam: PICC placement for IV antibiotics Technologist Note: Additional: COMPARISON: None. FLUOROSCOPY DOSE: 1 mGy Reference air kerma (ka,r). PROCEDURE: This is an interventional nephrology procedure performed on February 19, 2022 Real Estate Representative: Norris Cheek Procedures performed: 1. Insertion of PICC line 2. Fluoroscopic guidance for central venous catheter procedure 3. Ultrasound guidance for vascular access with permanent recording This patient was referred for placement of a PICC Line for the administration of long-term antibiotics to treat ankle infection. Following informed consent the patient was taken to the angiographysuite and placed on the fluoroscopy table. The skin of the right upper arm was prepared with chlorhexidine andsterile drapes were applied. Under real-time ultrasound guidance a brachial vein was cannulated with a micropuncture needle, a ellison scale image wasrecorded and a microfilament wire was advanced to the central veins under fluoroscopic guidance. This wire was utilized to measure an appropriate length of the catheter which in this case was 37 cm. Accordingly a 5French triple-lumen power PICC line was trimmed to this length and advancedover the guidewire with the aid of the peel-away sheath which was thenremoved. All lumens flushed easily and were locked with heparinized saline. The catheter was fixed in place with a stat lock device and a sterile CHG dressing was applied. Fluoroscopy confirmed the presence of the catheter tip in the SVC near the right atrium. I was present throughout the procedure. The patient tolerated the procedure well. There were no immediate complications. FINDINGS: The right brachial vein is patent and compressible. The final film demonstrates satisfactory position of the PICC line, with the tip at the junction of superior vena cava and right atrium. COMPLICATIONS: None immediate. IMPRESSION: Successful placement of right brachial upper extremity PICC line, using ultrasound and fluoroscopic guidance. Catheter is ready for immediateuse. > Interpreting Provider: Norris Cheek MD on 02/19/2022 2:08 PM Arturo Vega II, MD IR ORDERABLES * HIV-1 HIV-2 ANTIBODY + HIV P24 AG PANEL (02/18/2022 7:04 AM [employer]) HIV Antigen/Antibod y 1 & 2 Non-reacti ve Non-react alia 02/18/2022 8:06 AM [employer] [facility] Comment:No Laboratory eviden ce of HIV infection. Blood BLOOD SPECIMEN / Unknown Lab Venipuncture / Unknown 02/18/2022 7:04 AM [employer] 02/18/2022 7:17 AM [employer] Arturo Vega II, MD LAB - CHEMISTRY ORDERABLES [address] [address], [facility] [phone] * MRI TIBIA FIBULA RIGHT WWO CONT (02/16/2022 7:17 AM [employer]) Anatomical Region Laterality Modality Lower Extremity Magnetic Resonan ce 02/16/2022 7:43 AM [employer] Impressions 02/16/2022 8:43 AM [employer] IMPRESSION: 1.Posttraumatic and postsurgical changes in the distal tibia and fibula reflecting fractures treated with open reduction and internal fixation followed by removal of hardware. 2.Region of signal abnormality measuring 2.6 x 2.3 cm in the distal tibia which appears represent a cavity containing debris and probably gas. Adjacent bone marrow edema in the distal tibia and talar dome concerning for osteomyelitis. Postsurgical change and arthritis may be contributing. 3.1.9 x 0.5 cm peripherally enhancing collection posterior to the distal tibia and fibula may represent an abscess. 4.Ankle effusion and synovitis may be due to septic arthritis and/or posttraumatic arthritis. > Dictated by Edy Recinos MD (vice president tax) I, Humberto Winslow MD have personally reviewed and interpreted this examination/study. > Interpreting Provider: Humberto Winslow MD on 02/16/2022 8:43 AM Narrative 02/16/2022 8:43 AM [employer] PROCEDURE: MRI TIBIA FIBULA RIGHT WWO CONT, DATE/TIME OF EXAM: 02/16/2022 7:17 AM, LOCATION [facility] INDICATION: M86.171: Osteomyelitis of ankle, right, acute (CMS/HCC) ADDITIONAL CLINICAL INFORMATION: Ordering Provider Reason For Exam: eval osteo Technologist Note: Additional: COMPARISON: Right ankle radiograph 02/07/[address] 03/24/2021 TECHNIQUE: MRI of the right tibia/fibula was performed utilizing multiple pulse sequences in multiple planes before and after intravenous gadolinium contrast administration. CONTRAST: GADOBUTROL 1 MMOL/ML IV SSM SO:7.5 mL FINDINGS: Posttraumatic and postsurgical changes are present in the distal tibia and fibula consistent with open reduction and internal fixation of fractures followed by removal of hardware. 2 pin tracks are visible in the shaft of the tibia. There is a region of signal abnormality measuring 2.6 x 2.3 cm in the coronal plane (series 3 image 19) in the distal tibia in the region of fracture and surgery characterized by mostly hyperintense signal on STIR images and hypointense signal on T1 images which may represent a cavity containing fluid/debris. There are multiple foci of signal which are hypointense on all sequences in this region which may represent foci of gas and or susceptibility artifact from prior surgery. There is adjacent bone marrow edema in the distal tibia characterized by hyperintense signal on STIR images and hypointense signal on T1 images. There is severe arthritis at the ankle with irregularity of the distal tibial and talar dome articular surfaces which may represent posttraumatic deformity from fractures and/or erosion. There is moderate to severe bone marrow edema in the dome of the talus. Effusions are present at the ankle and subtalar joint. Postcontrast images reveal enhancement of the bone marrow in the distal tibia and talar dome and synovitis of the ankle joint. There is subcutaneous edema and muscle edema throughout the leg. There is mild to moderate diffuse muscle atrophy. Postcontrast images reveal enhancement of the soft tissues around the distal tibia and fibula compatible with cellulitis. There is a peripherally enhancing, centrally nonenhancing area in the soft tissues just posterior to the distal tibia and fibula measuring 1.9 x 0.5 cm which may represent an abscess (series 12 image 32). There are defects in the skin and subcutaneous tissues compatible with ulcers or wounds at the anterior medial aspect of the distal leg/ankle. Procedure Note Humberto Winslow MD - 02/16/2022 PROCEDURE: MRI TIBIA FIBULA RIGHT WWO CONT, DATE/TIME OF EXAM:02/16/2022 7:17 AM, LOCATION [facility] INDICATION: M86.171: Osteomyelitis of ankle, right, acute (CMS/HCC) ADDITIONAL CLINICAL INFORMATION: Ordering Provider Reason For Exam: rosa osteo Technologist Note: Additional: COMPARISON: Right ankle radiograph 02/07/[address] 03/24/2021 TECHNIQUE: MRI of the right tibia/fibula was performed utilizing multiple pulse sequences in multiple planes before and after intravenous gadolinium contrast administration. CONTRAST: GADOBUTROL 1 MMOL/ML IV SSM SO:7.5 mL FINDINGS: Posttraumatic and postsurgical changes are present in the distal tibiaand fibula consistent with open reduction and internal fixation of fractures followed by removal of hardware. 2 pin tracks are visible in the shaftof the tibia. There is a region of signal abnormality measuring 2.6 x 2.3 cm in the coronal plane (series 3 image 19) in the distal tibia in the region of fracture and surgery characterized by mostly hyperintense signal on STIR images and hypointense signal on T1 images which may represent a cavity containing fluid/debris. There are multiple foci of signal which are hypointense on all sequences in this region which may represent foci ofgas and or susceptibility artifact from prior surgery. There is adjacentbone marrow edema in the distal tibia characterized by hyperintense signal on STIR images and hypointense signal on T1 images. There is severe arthritis at the ankle with irregularity of the distal tibial and talar dome articular surfaces which may representposttraumatic deformity from fractures and/or erosion. There is moderate to severebone marrow edema in the dome of the talus. Effusions are present at theankle and subtalar joint. Postcontrast images reveal enhancement of the bone marrow in the distal tibia and talar dome and synovitis of the ankle joint. There is subcutaneous edema and muscle edema throughout the leg. Thereis mild to moderate diffuse muscle atrophy. Postcontrast images reveal enhancement of the soft tissues around the distal tibia and fibula compatible with cellulitis. There is a peripherally enhancing, centrally nonenhancing area in the soft tissues just posterior to the distal tibia and fibula measuring 1.9 x 0.5 cm which may represent an abscess ( image 32). There are defects in the skin and subcutaneous tissues compatible with ulcers or wounds at the anterior medial aspect of the distal leg/ankle. IMPRESSION: 1.Posttraumatic and postsurgical changes in the distal tibia and fibula reflecting fractures treated with open reduction and internal fixation followed by removal of hardware. 2.Region of signal abnormality measuring 2.6 x 2.3 cm in the distaltibia which appears represent a cavity containing debris and probably gas. Adjacent bone marrow edema in the distal tibia and talar dome concerning for osteomyelitis. Postsurgical change and arthritis may becontributing. 3.1.9 x 0.5 cm peripherally enhancing collection posterior to the distal tibia and fibula may represent an abscess. 4.Ankle effusion and synovitis may be due to septic arthritis and/or posttraumatic arthritis. > Dictated by Edy Recinos MD (vice president tax) I, Humberto Winslow MD have personally reviewed and interpreted this examination/study. > Interpreting Provider: Humberto Winslow MD on 02/16/2022 8:43 AM Madi Ortez MD MR ORDERABLES * (ABNORMAL) PREALBUMIN (02/15/2022 5:07 PM [employer]) Only the most recent of2 resultswithin the time period is included. Prealbumin 13(L) 16 - 45 mg/dL 02/15/2022 6:32 PM [employer] [facility] Blood BLOOD SPECIMEN / Unknown Venipuncture / Unknown 02/15/2022 5:07 PM [employer] 02/15/2022 6:17 PM [employer] Grecia Cain MD LAB - CHEMISTRY ORD ERABLES [address] [address], [facility] [phone] * CARDIAC RHYTHM STRIP ORDER (12/26/2021 9:17 PM CDT) Only the most recent of4 resultswithin the time period is included. Narrative 12/26/2021 9:17 PM CDT Ordered by an unspecified provider. Scanned Document CARDIAC SERVICES ORD ERABLES * ECHOCARDIOGRAM 2D WITH DOPPLER (12/20/2021 3:15 PM CDT) Only the most recent of2 resultswithin the time period is included. 12/20/2021 3:15 PM CDT Narrative Procedure Note Ruba Mesa DO - 12/21/[address] [facility] [address] [place], [place] [id number] Echocardiography Examination Transthoracic Name: CHYNA TENORIO MPI#: MR#: [id number] Admission Number: [id number] Study Date: 12/21/2021 Study Time: 03:31 PM Date Of : 1950 Age: 71 years Height: 63 in. (160.0 cm) Weight: 192.99 lbs. 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 Normal global systolic left ventricular function. EF 70 %. Left ventricle wall thickness is at the upper limits of normal. There are no regional wall motion abnormalities. Left ventricular diastolic function parameters are normal. Right Ventricle: Normal size right ventricle. Right ventricular systolic function is normal. Pulmonary artery pressure normal. Mitral Valve: Mild mitral regurgitation. Patient: CHYNA TENORIO Study Date: 12/21/2021 03:31 PM Page 1 of 3 Tricuspid Valve Measurements RVSP: 33 mmHg. Follow up: Findings Left Ventricle: Left ventricle is normal in size. Normal global systolic left ventricular function. EF evaluated by biplane method of disks. EF 70 %. Left ventricle wall thickness is at the upper limits of normal. There are no regional wall motion abnormalities. Left ventricular diastolic function parameters are normal. Right Ventricle: Normal size right ventricle. Right ventricular wall thickness is normal. Right ventricular systolic function is normal. Pulmonary artery pressure normal. Left Atrium: The left atrium is normal in size. Right Atrium: The right atrium is normal in size. Mitral Valve: Mitral leaflets exhibit normal cuspal separation. Mild mitral regurgitation. No mitral valve stenosis. Aortic Valve: Aortic leaflets exhibit normal cuspal separation. No aortic valve regurgitation. There is no aortic stenosis. Tricuspid Valve: Tricuspid valve leaflets are normal. Mild tricuspid regurgitation. No tricuspid valve stenosis. Pulmonic Valve: Pulmonic leaflets exhibit normal cuspal separation. No pulmonic valve regurgitation is evident. There is no pulmonic valve stenosis. Aorta: The aorta is normal. No dilation of the ascending aorta. The aortic root exhibits normal size. Great Vessels: IVC: The inferior vena cava is normal in size and course. There is inspiratory collapse of the IVC. Pericardium: The pericardium is normal in appearance. No pericardial effusion. Clinical Data Hypertension: Yes Comment: A-FIB, COPD, DM, Measurements Anatomy Label Value Normal Value Aorta AoRoot, 2D 2.6 cm (1.4cm - 2.6cm) Aortic Valve AV Vmean 1.15 m/s Aortic Valve AV VTI 39.43 cm Aortic Valve AV PGmax 11 mmHg Aortic Valve AV PGmean 6 mmHg Aortic Valve AV Vmax, Curve 1.64 m/s (1m/s - 1.7m/s) Aortic Valve LVOT VTI / AV VTI 0.63 Aortic Valve AUDI D (continuity eq. VTI) 2 cm Aortic Valve AUDI Index (continuity 1 cm /m eq.Vmax) Patient: CHYNA TENORIO Study Date: 12/21/2021 03:31 PM Page 2 of 3 Aortic Valve LVOT Vmax / AV Vmax 0.62 Interventricular septum IVSd, 2D 0.9 cm (0.6cm - 1.1cm) Left Atrium LADs, 2D 3.6 cm (2.7cm - 3.8cm) Left Ventricle LVOT Vmax 1.01 m/s (0.7m/s - 1.1m/s) Left Ventricle LVOTd 2 cm (1.8cm - 2cm) Left Ventricle LVOT VTI 24.89 cm (18cm - 22cm) Left Ventricle LVOT PGmax 4 mmHg Left Ventricle LVEF visual 70 % (55% - 75%) Left Ventricle LVDd, 2D 3.9 cm (3.7cm - 5.2cm) Left Ventricle LVDs, 2D 2.6 cm (2.2cm - 3.5cm) Left Ventricle LVPWd, 2D 1 cm (0.6cm - 0.9cm) Left Ventricle FS, 2D 33.33 % Left Ventricle LVEDV, BP 107 ml (56ml - 104ml) Left Ventricle LVESV, BP 32 ml (19ml - 49ml) Left Ventricle LVEDV Index, BP 56.3 ml/m (35ml/m - 75ml/m ) Left Ventricle LVESV Index, BP 16.8 ml/m (12ml/m - 30ml/m ) Left Ventricle LVOT PGmean 2 mmHg Left Ventricle LVOT Vmean 0.68 m/s Left Ventricle Diastolic MV E Vmax 1.34 m/s Function Left Ventricle Diastolic MV A Vmax 0.92 m/s Function Left Ventricle Diastolic MV E/A 1.46 Function Left Ventricle Diastolic MV DT 239 ms Function Mitral Valve MV Dec [place] 5.59 m/s Pulmonic Valve PV PGmax 5 mmHg Pulmonic Valve PV Vmax, Caliper 1.08 m/s (0.6m/s - 0.9m/s) Right Ventricle Diastolic TR Pmax 30 mmHg Function Right Ventricle Diastolic PV AT 128 ms Function Tricuspid Valve RVSP 33 mmHg Tricuspid Valve RA Pressure 3 mmHg (No Signature Object) Patient: CHYNA TENORIO Study Date: 12/21/2021 03:31 PM Page 3 of 3 Dave Bojorquez MD ECHO ORDERABLES Performing Organization Address City/State/[facility] Co de Phone Number [facility] [address] [place] [address] * (ABNORMAL) B-TYPE NATRIURETIC PEPTIDE (12/18/2021 4:15 PM CDT) Only the most recent of3 resultswithin the time period is included. BNP 417(H) <=100 pg/mL 12/18/2021 4:55 PM CDT [facility] Blood BLOOD SPECIMEN / Unknown Venipuncture / Unknown 12/18/2021 4:15 PM CDT 12/18/2021 4:32 PM CDT Narrative [facility] - 12/18/2021 4:55 PM CDT A cutoff of 100 pg/mL has been demonstrated to provide the maximal combination of sensitivity, specificity, and negative predictive value for contributing to the diagnosis of congestive heart failure (CHF) only. A B-Type Natriuretic Peptide (BNP) value greater than or equal to 100 pg/mL is consistent with a diagnosis of CHF in the appropriate clinical setting. False positive results are more common in females greater than 75 years of age. Blood concentrations of natriuretic peptides may also be elevated in patients with myocardial infarction and in patients who are candidates for or are undergoing renal dialysis. Finn Martínez MD LAB - CHEMISTRY DIAMANTE CARCAMO Performing Organization Address [facility] Co de Phone Number [facility] [address] [place] [address] * TRANSFUSE RED BLOOD CELL LEUKOREDUCED UNIT(S) (12/12/2021 9:10 PM CDT) Ivan Guillory DO NURSING - BLOOD PROD TRANSFUSION * NICOLE DIRECT C3 (12/12/2021 11:49 AM CDT) Anti-C3 Nicole NEG 12/12/2021 11:53 AM CDT [facility] Comment:testing performed at [facility] Blood BLOOD SPECIMEN / Unknown Lab Venipuncture / Unknown 12/12/2021 11:49 AM CDT 12/12/2021 11:50 AM CDT Noa Agarwal MD LAB - BLOOD BANK ORD CARLINE Performing Organization Address [facility] Co de Phone Number [facility] BLO[facility] [address] [place] [address] * NICOLE DIRECT IGG (12/12/2021 11:49 AM CDT) IgG Nicole POS 12/12/2021 11:52 AM CDT [facility] BLOOD [facility] Comment:[place]- Non-reactive / testing performed at [facility] Blood BLOOD SPECIMEN / Unknown Lab Venipuncture / Unknown 12/12/2021 11:49 AM CDT 12/12/2021 11:50 AM CDT Noa Agarwal MD LAB - BLOOD BANK ORD ERABLES [facility]ANK [facility] [address] [place] [address], [facility] [phone] * ETT LINE PERFORMABLE (12/11/2021 1:24 PM CDT) Narrative Bridgette Ingram APRN-CRNA - 12/11/2021 1:24 PM CDT Bridgette Ingram APRN-CRNA 12/11/2021 1:27 PM Endotracheal Tube Placement: Patient Location: OR. Intubation Event Date/Time: 12/11/2021 1:24 PM Procedure: intubation (02886). Procedure Section: Sedation: IV sedation. Indications for Airway Management: airway protection Induction: standard IV Patient Position: sniffing Mask Ventilation: easy with oral airway. Blade Type: Horace Blade Size: 3 Laryngoscopy View: grade 1 (full cords) Intubation Adjuncts: stylet Tube: endotracheal tube Placement: oral Tube type: cuff - inflated Tube Size (MM): 7 Depth of Insertion (CM): 21 Measured From: lips Cuff volume (mL): 7 Cuff Inflated With: air Number of Attempts: 1. Placement Verified By: direct visualization, bilateral breath sounds, chest auscultation and CO2 monitor Tube secured with: adhesive tape. Procedure Start Time: 12/11/2021 1:24 PM. Staff Section Anesthesia Provider: Bridgette Ingram APRN-CRNA, Performed the procedure Additional Comments: Atraumatic intubation. Mouth, lips, teeth, gums unchanged from baseline. . Ivania De La Rosa MD GENERAL ANESTHESIA O RDERABLES * (ABNORMAL) TROPONIN I (12/09/2021 11:15 PM CDT) Only the most recent of6 resultswithin the time period is included. Troponin I 0.163(HH) <0.038 ng/mL 12/10/2021 12:03 AM CDT [facility] Blood BLOOD SPECIMEN / Unknown Lab Venipuncture / Unknown 12/09/2021 11:15 PM CDT 12/09/2021 11:32 PM CDT Tahir Harper DO LAB - CHEMISTRY ORDE RABLES Performing Organization Address City/[facility]/ZIP Co de Phone Number [facility] [address] [place] [address] * PT-INR (12/09/2021 11:15 PM CDT) Only the most recent of2 resultswithin the time period is included. PT 14.6 12.1 - 14.8 sec 12/09/2021 11:53 PM CDT [facility] INR 1.1 0.9 - 1.1 12/09/2021 11:53 PM CDT [facility] Blood BLOOD SPECIMEN / Unknown Lab Venipuncture / Unknown 12/09/2021 11:15 PM CDT 12/09/2021 11:32 PM CDT Narrative [facility] - 12/09/2021 11:53 PM CDT Conventional Warfarin Anticoagulant Therapy: INR Reference Range: 2.0-3.0 Intensive Warfarin Anticoagulant Therapy: INR Reference Range: 2.5-3.5 Tahir Harper DO LAB - COAGULATION OR DERABLES Performing Organization Address [facility]/ZIP Co de Phone Number [facility] [address] [place] [address] * CULTURE FUNGUS OTHER+FUNGUS SMEAR (12/09/2021 6:03 PM CDT) Only the most recent of3 resultswithin the time period is included. Culture No fungus isolated MALICK 01/04/2022 10:[address] [facility] Fungus Stain No yeast or hyphae seen 01/04/2022 10:[address] [facility] Microbiology BONE SPECIMEN / Unknown Collection / Unknown 12/09/2021 6:03 PM CDT 12/09/2021 6:[address] [facility] - 01/04/2022 10:31 AM CDT Surgical Description: Right Medial Bone Cristo Lewis MD LAB - MICROBIOLOGY O RDERABLES [facility] [address] [place] [address], [facility] [phone] * CULTURE AFB+SMEAR (12/09/2021 6:03 PM CDT) Only the most recent of7 resultswithin the time period is included. Culture No acid-fast bacillus isolated 01/18/2022 9:[address] [facility] AFB Smear No acid-fast bacilli seen 01/18/2022 9:[address] [facility] Microbiology BONE SPECIMEN / Unknown Collection / Unknown 12/09/2021 6:03 PM CDT 12/09/2021 6:[address] [facility] - 01/18/2022 9:18 AM CDT Surgical Description: Right Medial Bone Cristo Lewis MD LAB - MICROBIOLOGY O RDERABLES [facility] [address] [place], [place] [address] [phone] * PATHOLOGY TISSUE EXAM (STL) (12/09/2021 4:54 PM CDT) Case Report Surgical Pathology Report Case: [id number] Authorizing Provider: Cristo Lewis MD Collected: 12/09/2021 04:54 PM Ordering Location: [facility] INTRAOP Received: 12/10/2021 08:46 AM Pathologist: Jorge Magallanes MD Specimens: A) - Ankle, right posterior ankle B) - Ankle, right lateral ankle C) - Ankle, right medial ankle 12/11/2021 3:49 PM CDT [facility] Final Diagnosis Bone and soft tissue, right posterior ankle, debridement (A): 1. Acutely and chronically inflamed granulation tissue 2. Fragments of bone with remodeling changes and chronic inflammation of medullary space Soft tissue, right lateral ankle, debridement (B): 1. Fibrinopurulent debris suggestive of an ulcer, abscess, or fistula tract 2. Soft tissue with fibrosis and chronic inflammation 3. Small shards of bone with remodeling changes Bone and soft tissue, right medial ankle, debridement (C): 1. Bone with remodeling changes and reactive new bone formation with mild chronic inflammation of medullary space 2. Fibrotic soft tissue 12/11/2021 3:49 PM [facility] Clinical History 71-year-old woman with right ankle infected hardware and osteomyelitis and a medial skin defect. 12/11/2021 3:49 PM [facility] Gross Description The requisition and specimen are identified with patient's name and date of . Received in formalin, specimen A, right posterior ankle are 3 pink-torres soft tissues and bone-0.5-1.3 cm in greatest dimension and 2.6 x 0.6 x 0.3 cm aggregate. Entirely submitted in cassette A1 following decal. Received in formalin, specimen B, right lateral ankle are 4 torres to pink-torres soft tissue-0.6-1.5 cm in greatest dimension and 2.7 x 1 x 0.3 cm aggregate. Entirely submitted in cassette B1. Received in formalin, specimen C right medial ankle are multiple torres to pink-torres bone and associated soft tissue-0.3-0.7 cm in greatest dimension and 2 x 1.2 x 0.3 cm in aggregate. Entirely submitted in cassette C1. LJ 12/11/2021 3:49 PM [facility] Microscopic Description Review confirms the final diagnosis. 12/11/2021 3:49 PM [facility] Disclaimer All histochemical and/or immunohistochemical results are interpreted with controls that demonstrate appropriate staining reactions before reporting results. Note on use of immunocytochemistry reagents: This test was developed and its performance characteristic determined by [facility], Department of Laboratory Medicine. It has not been cleared or approved by the U.S. Food and Drug Administration (FDA). The FDA has determined that such clearance or approval is not necessary. The test is used for clinical purpose. It should not be regarded as investigational or for research. This laboratory is certified to perform high complexity testing. The performance characteristics of the IHC/VILMA assays have been validated on formalin-fixed paraffin embedded tissues only. The assays have not been validated on decalcified tissues. Results should be interpreted with caution. 12/11/2021 3:49 PM [facility] Embedded Images 12/11/2021 3:49 PM [facility] Pathology/Cytology ENTIRE ANKLE REGION / Unknown 12/09/2021 4:54 PM CDT 12/10/2021 8:46 AM CDT Miscellaneous samples (specimen) ENTIRE ANKLE REGION / Unknown 12/09/2021 5:24 PM CDT 12/10/2021 8:46 AM CDT Miscellaneous samples (specimen) ENTIRE ANKLE REGION / Unknown 12/09/2021 5:44 PM CDT 12/10/2021 8:46 AM CDT Cristo Lewis MD LAB - PATHOLOGY/CYTO LOGY ORDERABLES [facility] [address] [place] [address] * ETT LINE PERFORMABLE (12/09/2021 4:17 PM CDT) Narrative Jun Garduno APRN-CRNA - 12/09/2021 4:17 PM CDT Jun Garduno APRN-CRNA 12/09/2021 4:24 PM Endotracheal Tube Placement: Patient Location: OR. Intubation Event Date/Time: 12/09/2021 4:17 PM Procedure: intubation (93160). Procedure Section: Sedation: under general anesthesia. Indications for Airway Management: anesthesia Induction: modified rapid sequence Patient Position: supine Mask Ventilation: easy. Blade Type: Horace Blade Size: 4 Laryngoscopy View: grade 2 (partial cords) Intubation Adjuncts: stylet Tube: endotracheal tube Placement: oral Tube type: cuff - inflated Tube Size (MM): 7 Depth of Insertion (CM): 20 Measured From: teeth Cuff volume (mL): 4 Cuff Inflated With: air Number of Attempts: 1. Placement Verified By: direct visualization, bilateral breath sounds, chest auscultation and CO2 monitor Tube secured with: adhesive tape. Dentition unchanged? Yes Difficult Airway? No. Procedure Start Time: 12/09/2021 4:17 PM. Procedure End Time: 12/09/2021 4:18 PM. Procedure Total Time: 1 minutes. Staff Section Anesthesia Provider: Jun Garduno APRN-CRNA, Performed the procedure Tomi Castro MD GENERAL ANESTHESIA ORDERABLES * SARS-COV-2 (COVID-19) RAPID (06/19/2021 3:57 AM CDT) Only the most recent of4 resultswithin the time period is included. COVID-19 PCR Not detected Not detected 06/20/19 4:39 AM CDT [facility] Microbiology SPECIMEN FROM NASOPHARYNGEAL STRUCTURE / Unknown Collection / Unknown 06/19/2021 3:57 AM CDT 06/19/2021 4:00 AM CDT Narrative [facility] - 06/19/2021 4:39 AM CDT The CepRapid Pathogen Screening Xpert Xpress SARS-COV-2 has been authorized by the Food and Drug Administration (FDA) under an Emergency Use Authorization (EUA). This test has been validated in accordance with the FDA's guidance document Policy for Diagnostic Testing in Laboratories Certified to perform High Complexity Testing under CLIA prior to Emergency Use Authorization for Coronavirus Disease-2019 during the Public Health Emergency issued on May 19, 2019. FDA independent review of this validation is pending. This test is only authorized for the duration of the time the declaration that circumstances exist justifying the authorization of emergency use of in vitro diagnostic tests for detection of SARS-COV-2 virus and/or diagnosis of COVID-19 infection under 564(b) (1) of the Act. 21 U.S.C. 360bbb-3 (b) (1), unless the authorization is terminated or revoked sooner. Fact Sheets for this EUA assay are available upon request. Gregg Kline DO LAB - MICROBIOLOGY O RDERABLES Performing Organization Address City/State/[facility] Co de Phone Number [facility] [address] [place] [address] * CT ANGIO CHEST PULM EMBOLISM (06/09/2021 8:23 PM CDT) Anatomical Region Laterality Modality Chest Computed Tomogra phy 06/09/2021 8:39 PM CDT Narrative 06/09/2021 8:50 PM CDT STUDY: CTA OF THE CHEST FOR PE EVALUATION HISTORY: Atrial fibrillation. Tachycardia. COMPARISON: None available. TECHNIQUE: CT of the chest was performed from the lung apices to the lung bases, following intravenous administration of 80 mL of Isovue-370 contrast. Images were obtained at inspiration and viewed in axial (including thin sections), sagittal and coronal planes. Contrast injection rate and acquisition timing were optimized for opacification of the pulmonary arteries for evaluation of pulmonary embolism. Dose reduction techniques were utilized. Multiplanar 3D MIP images were created and reviewed. FINDINGS: There is no filling defect to suggest pulmonary embolism. The central airways are grossly clear. There is intralobular septal thickening and trace bilateral pleural effusions concerning for pulmonary edema. There are trace scattered peripheral areas of groundglass infiltrate within the lungs which are nonspecific and may be secondary to edema, but pneumonia is not excluded. The heart is normal in size. There is no pericardial effusion. The aorta and pulmonary artery are normal in caliber. The mediastinal structures are unremarkable. The thyroid is unremarkable. The limited visualized portions of the intra-abdominal contents are unremarkable. There is no masslike lymphadenopathy. The superficial soft tissues are unremarkable. There are chronic bilateral rib fractures. IMPRESSION: 1. No evidence of pulmonary embolism. 2. Intralobular septal thickening and trace bilateral pleural effusions concerning for pulmonary edema. 3. Trace scattered peripheral areas of groundglass infiltrate within the lungs which are nonspecific and may be secondary to edema, but pneumonia is not excluded. 4. Chronic bilateral rib fractures. *Reading Radiologist: Melida Fay on 06/09/2021 at 8:50 PM Procedure Note Melida Fay MD - 06/09/2021 STUDY: CTA OF THE CHEST FOR PE EVALUATION HISTORY: Atrial fibrillation. Tachycardia. COMPARISON: None available. TECHNIQUE: CT of the chest was performed from the lung apices to the lung bases, following intravenous administration of 80 mL of Isovue-370 contrast. Images were obtained at inspiration and viewed in axial (including thin sections), sagittal and coronal planes. Contrast injection rate and acquisition timing were optimized for opacification of the pulmonary arteries for evaluation of pulmonary embolism. Dose reduction techniques were utilized. Multiplanar 3D MIP images were created and reviewed. FINDINGS: There is no filling defect to suggest pulmonary embolism. The central airways are grossly clear. There is intralobular septal thickening and trace bilateral pleural effusions concerning for pulmonary edema. There are trace scattered peripheral areas of groundglass infiltrate within the lungs which are nonspecific and may be secondary to edema, but pneumonia is not excluded. The heart is normal in size. There is no pericardial effusion. The aorta and pulmonary artery are normal in caliber. The mediastinal structures are unremarkable. The thyroid is unremarkable. The limited visualized portions of the intra-abdominal contents are unremarkable. There is no masslike lymphadenopathy. The superficial soft tissues are unremarkable. There are chronic bilateral rib fractures. IMPRESSION: 1. No evidence of pulmonary embolism. 2. Intralobular septal thickening and trace bilateral pleural effusions concerning for pulmonary edema. 3. Trace scattered peripheral areas of groundglass infiltrate within the lungs which are nonspecific and may be secondary to edema, but pneumonia is not excluded. 4. Chronic bilateral rib fractures. *Reading Radiologist: Melida Fay on 06/09/2021 at 8:50 PM Enriqueta Fernandez MD CT ORDERABLES * XR CHEST 1VW (06/09/2021 5:39 PM CDT) Anatomical Region Laterality Modality Chest Radiographic Katja ging 06/09/2021 5:41 PM CDT Narrative 06/09/2021 5:41 PM CDT STUDY: Single frontal view of the chest. HISTORY: Unspecified atrial fibrillation. COMPARISON: Chest radiograph dated 04/18/2021. FINDINGS: The cardiomediastinal silhouette is normal. The pulmonary vasculature is unremarkable. Diffusely mildly increased interstitial markings may represent interstitial edema. There is no pleural effusion. There is no pneumothorax. The osseous structures are grossly unchanged. *Reading Radiologist: Melida Fay on 06/09/2021 at 5:41 PM Procedure Note Melida Fay MD - 06/09/2021 STUDY: Single frontal view of the chest. HISTORY: Unspecified atrial fibrillation. COMPARISON: Chest radiograph dated 04/18/2021. FINDINGS: The cardiomediastinal silhouette is normal. The pulmonary vasculature is unremarkable. Diffusely mildly increased interstitial markings may represent interstitial edema. There is no pleural effusion. There is no pneumothorax. The osseous structures are grossly unchanged. *Reading Radiologist: Melida Fay on 06/09/2021 at 5:41 PM Enriqueta Fernandez MD DIAGNOSTIC IMAGING ORDERABLES * (ABNORMAL) HGB HCT PANEL (05/16/2021 5:12 PM [employer]) Only the most recent of3 resultswithin the time period is included. Hemoglobin 8.1(L) 12.0 - 15.6 gm/dL 05/16/2021 5:17 PM [employer] [facility] Hematocrit 26.0(L) 35.9 - 45.5 % 05/16/2021 5:17 PM [employer] [facility] Blood BLOOD SPECIMEN / Unknown Lab Venipuncture / Unknown 05/16/2021 5:12 PM [employer] 05/16/2021 5:15 PM [employer] Gregg Kline DO LAB - HEMATOLOGY ORD ERABLES [facility] [address] [place] [address] * TRANSFUSE RED BLOOD CELL LEUKOREDUCED UNIT(S) (05/16/2021 3:48 PM [employer]) Gregg Kline DO NURSING - BLOOD PROD TRANSFUSION * TRANSFUSE RED BLOOD CELL LEUKOREDUCED UNIT(S) (05/16/2021 12:20 PM [employer]) Gregg Kline DO NURSING - BLOOD PROD TRANSFUSION * TRANSFUSE RED BLOOD CELL LEUKOREDUCED UNIT(S) (05/15/2021 5:46 AM [employer]) Dejanaman Luis Santiago APRN-NEON TECHNICIAN NURSING - BLOOD PROD TRANSFUSION * (ABNORMAL) IRON + TRANSFERRIN PANEL (05/14/2021 8:17 PM [employer]) Only the most recent of2 resultswithin the time period is included. Iron 18(L) 50 - 170 ug/dL 05/14/2021 9:42 PM [employer] [facility] Transferrin 161(L) 173 - 360 mg/dL 05/14/2021 9:42 PM [employer] [facility] TIBC Calculated 201(L) 240 - 450 ug/dL 05/14/2021 9:42 PM [employer] [facility] Iron Saturation % 9(L) 20 - 50 % 05/14/2021 9:42 PM [employer] [facility] Blood BLOOD SPECIMEN / Unknown Lab Venipuncture / Unknown 05/14/2021 8:17 PM [employer] 05/14/2021 8:40 PM [employer] Rustam Santiago [facility] - CHEMISTRY ORDERABLES Performing Organization Address [facility] Co de Phone Number [address] [place] [address] * (ABNORMAL) FERRITIN (05/14/2021 8:17 PM [employer]) Only the most recent of2 resultswithin the time period is included. Pathologist [facility] Ferritin 323(H) 5 - 204 ng/mL 05/14/2021 10:02 PM [employer] [facility] Blood BLOOD SPECIMEN / Unknown Lab Venipuncture / Unknown 05/14/2021 8:17 PM [employer] 05/14/2021 8:40 PM [employer] Rustam Lowerybee [facility] - CHEMISTRY ORDERABLES Performing Organization Address [facility] de Phone Number [address] [place] [address] * (ABNORMAL) OCCULT BLOOD FECES (04/24/2021 11:18 AM [employer]) Pathologist [facility] Occult Blood Positive(A ) Negative 04/24/2021 11:50 AM [employer] [facility] Stool STOOL SPECIMEN / Unknown Collection / Unknown 04/24/2021 11:18 AM [employer] 04/24/2021 11:25 AM [employer] Finn Martínez MD LAB - BODY FLUID ORD ERABLES Performing Organization Address City/[facility]/ZIP Co de Phone Number [facility] [address] [place] [address] * (ABNORMAL) RETIC COUNT (04/21/2021 2:56 AM [employer]) Pathologist [facility] Reticulocyte Count 2.06(H) 0.5 - 1.7 % 04/21/2021 8:45 AM [employer] [facility] Reticulocyte Absolute 0.0531 0.0041 - 0.0971 x10E6/uL 04/21/2021 8:45 AM [employer] [facility] Reticulocyte Immature Fractionated 15.4(H) 0.9 - 14.3 % 04/21/2021 8:[address] [facility] Hemoglobin Retic 21.6(L) 27.8 - 36.8 pg 04/21/2021 8:[address] [facility] Blood BLOOD SPECIMEN / Unknown Lab Venipuncture / Unknown 04/21/2021 2:56 AM [employer] 04/21/2021 4:32 AM [employer] Finn Martínez MD LAB - HEMATOLOGY ORD ERABLES [facility] [address] [place] [address] * COPPER BLOOD (04/13/2021 2:11 PM [employer]) Copper 128 80 - 158 ug/dL 04/17/2021 12:06 AM [facility] ([facility]) Comment:Detection Limit = 5 Blood BLOOD SPECIMEN / Unknown Lab Venipuncture / Unknown 04/13/2021 2:11 PM [employer] 04/13/2021 2:57 PM [employer] Narrative [facility] ([facility]) - 04/17/2021 12:06 AM [employer] Test(s) 232262-[id number], Serum or Plasma was developed and its performance characteristics determined by [facility]. It has not been cleared or approved by the Food and Drug Administration. Performed at: - [address] [id number] [place] Sizer: Ragini Morgan MD, Phone: [phone] Yecenia Carrera PA-C LAB - CHEMISTRY ORDERABLES [facility] ([facility]) [address] [place] [address] * CERULOPLASMIN (04/13/2021 2:11 PM [employer]) Ceruloplasmin 39 20 - 60 mg/dL 04/13/2021 5:58 PM [employer] [facility] Blood BLOOD SPECIMEN / Unknown Lab Venipuncture / Unknown 04/13/2021 2:11 PM [employer] 04/13/2021 2:57 PM [employer] Yecenia Carrera PA-C LAB - CHEMISTRY ORDERABLES Performing Organization Address City/[facility]/ZIP Co de Phone Number [facility] [address] [place] [address], [facility] [phone] * (ABNORMAL) HEPATIC FUNCTION PANEL (04/13/2021 2:11 PM [employer]) Alkaline Phosphatase 71 40 - 150 U/L 04/13/2021 3:24 PM [employer] [facility] ALT 13 0 - 61 U/L 04/13/2021 3:24 PM [employer] [facility] AST 10 5 - 34 U/L 04/13/2021 3:24 PM [employer] [facility] Protein Total 6.3(L) 6.4 - 8.3 gm/dL 04/13/2021 3:24 PM [employer] [facility] Albumin 3.1(L) 3.2 - 4.6 gm/dL 04/13/2021 3:24 PM [employer] [facility] Bilirubin Total 0.2 0.2 - 1.2 mg/dL 04/13/2021 3:24 PM [employer] [facility] Bilirubin Direct 0.16 <=0.5 mg/dL 04/13/2021 3:24 PM [employer] [facility] Blood BLOOD SPECIMEN / Unknown Lab Venipuncture / Unknown 04/13/2021 2:11 PM [employer] 04/13/2021 2:57 PM [employer] Yecenia Carrera PA-C LAB - CHEMISTRY ORDERABLES [facility] [address] [place] [address] * (ABNORMAL) FOLATE (04/13/2021 2:11 PM [employer]) Pathologist [facility] Folate 5.4(L) 7.0 - 31.4 ng/mL 04/13/2021 3:58 PM [employer] [facility] Blood BLOOD SPECIMEN / Unknown Lab Venipuncture / Unknown 04/13/2021 2:11 PM [employer] 04/13/2021 2:57 PM [employer] Yecenia Elliott Deandre GUAN-Luis LAB - CHEMISTRY ORDERABLES Performing Organization Address City/[facility]/ZIP Co de Phone Number [facility] [address] [place] [address] * VITAMIN B12 (04/13/2021 2:11 PM [employer]) Vitamin B12 229 213 - 816 pg/mL 04/13/2021 3:58 PM [employer] [facility] Blood BLOOD SPECIMEN / Unknown Lab Venipuncture / Unknown 04/13/2021 2:11 PM [employer] 04/13/2021 2:57 PM DIRECT[employer] SOLUTIONS Yecenia Elliott Deandre PAT[facility] - CHEMISTRY ORDERABLES Performing Organization Address [facility] Co de Phone Number [facility] [address] [place] [address] * ETT LINE PERFORMABLE (04/07/2021 1:14 PM DIRECTOR MOBILE MEDIA SOLUTIONS) Narrative Joselyn Sun APRN-CRNA - 04/07/2021 1:14 PM DIRECTOR [employer] SOLUTIONS Joselyn Sun APRN-CRNA 04/07/2021 1:15 PM Endotracheal Tube Placement: Patient Location: OR. Intubation Event Date/Time: 04/07/2021 1:04 PM Procedure: intubation ([id number]). Procedure Section: Sedation: under general anesthesia. Indications for Airway Management: anesthesia Procedure pretreatments used? No Induction: standard IV Patient Position: sniffing Mask Ventilation: easy with oral airway. Blade Type: Hroace Blade Size: 3 Laryngoscopy View: grade 1 (full cords) Intubation Adjuncts: stylet Tube: endotracheal tube Placement: oral Tube type: cuff - inflated Tube Size (MM): 7 Depth of Insertion (CM): 21 Measured From: gums Cuff volume (mL): 6 Cuff Inflated With: air Number of Attempts: 1. Placement Verified By: direct visualization, bilateral breath sounds, chest auscultation and CO2 monitor Tube secured with: adhesive tape. Dentition unchanged? Yes Difficult Airway? No. Procedure Start Time: 04/07/2021 1:04 PM. Staff Section Anesthesia Provider: Joselyn Sun APRN-CRNA, Performed the procedure Tomi Castro MD GENERAL ANESTHESIA ORDERABLES * Peripheral Nerve Block (04/07/2021 12:40 PM DIRECTOR MOBILE [employer] SOLUTIONS) Narrative Tomi Castro MD - 04/07/2021 12:40 PM DIRECTOR [employer] SOLUTIONS Tomi Castro MD 04/07/2021 12:52 PM Peripheral Nerve Block Procedure: Peripheral Nerve Block Patient Location: Pre-op Preprocedure Section: Indications: at surgeon's request and postop pain management. Pre-anesthetic Checklist: Patient identified, IV Checked, Site examined and clear, Risks and benefits discussed, Surgical consent verified, Monitors and equipment, Time-out performed, Informed consent obtained, Pre-op evaluation done, Questions answered/anesthesia questions answered, Allergies reviewed and Removal hand/wrist jewelry Monitors: Pulse Ox. Patient Condition: sedated, meaningful contact maintained throughout procedure Patient Position: prone Patient Sedated? Yes Sedation Type: moderate Sedation Agents: fentaNYL (PF) (SUBLIMAZE) injection, 100 mcg midazolam (VERSED) injection, 2 mg Procedure Section Laterality: right Block Performed: popliteal Prep: Chloraprep Skin localized with: lidocaine (XYLOCAINE MPF) 1 % injection, 1 mL Needle Type: nerve stimulator Needle Gauge: 22 Needle Length: 80 mm Catheter? No Ultrasound Guided? Yes Technique: in plane Visualization: Preliminary scan performed, Important anatomical structures identified, Needle tip visualized throughout the procedure, Target identified, No intraneural or intravascular puncture occurred, Hydolocation utilized, Ultrasound image in chart and Local visualized surrounding nerve on ultrasound Injection was made incrementally with constant monitoring and aspirations every 5 mL's Injection Assessment: Slow fractionated injection Block Agents or Additives used? Yes Block agents used: ropivacaine (NAROPIN) 5 MG/ML (0.5%) injection, 40 mL Procedure Tolerance: tolerated well and performed while the patient was sedated Assessment: completed Procedure Start Time: 04/07/2021 12:40 PM. Procedure End Time: 04/07/2021 12:46 PM. Procedure Total Time: 6 minutes. Staff Section Anesthesia Provider: Tomi Castro MD, Performed the procedure Tomi Castro MD GENERAL ANESTHESIA ORDERABLES * CT LOWER EXT RIGHT WO CONTRAST (03/26/2021 11:31 AM DIRECTOR [employer]LE [employer] SOLUTIONS) Anatomical Region Laterality Modality Lower Extremity Computed Tomogra phy 03/26/2021 1:47 PM DIRECTOR [employer]IONS Impressions 03/26/2021 1:51 PM DIRECTOR [employer]BILE [employer] SOLUTIONS 1. External fixation of comminuted fibular and medial malleolus fractures. Also vertical intra-articular fracture of the distal tibia. (Trimalleolar injury). *Reading Radiologist: Carlos Estrada on 03/26/2021 at 1:51 PM Narrative 03/26/2021 1:51 PM DIRECTOR MOBILE MED[employer] SOLUT[employer] CT right lower extremity, noncontrast DATE: 03/26/2021. INDICATION: Further evaluation of complex ankle fracture. TECHNIQUE: Multidetector nonenhanced CT through the distal half the right calf and ankle with triplanar reformations. COMPARISONS: Plain films from yesterday. FINDINGS: External fixator hardware is anchored to the mid tibia obvious several screws. There is also a trans-calcaneal anchor. A comminuted fracture of the distal fibula is relatively aligned. There are multiple fragments of bone clustered together at the fracture site but without callus. There is minimal angulation. Fracture extends into the medial malleolus but not into the inferior tip. There is an additional slightly comminuted transverse fracture through the medial malleolus which is normally aligned. The tibiotalar joint is normally aligned but there is mild joint space narrowing suggesting cartilage loss and primary osteoarthritis. There is an additional vertical intra-articular fracture through the distal tibia which is normally aligned. The talus and calcaneus are intact. The remaining tarsal bones are intact although there are degenerative subchondral cysts in multiple cuneiforms. Soft tissue windows reveals subcutaneous edema in the calf especially near the ankle. There is no focal fluid collection to suggest an abscess. Procedure Note Carlos Estrada MD - 03/26/2021 CT right lower extremity, noncontrast DATE: 03/26/2021. INDICATION: Further evaluation of complex ankle fracture. TECHNIQUE: Multidetector nonenhanced CT through the distal half the right calf and ankle with triplanar reformations. COMPARISONS: Plain films from yesterday. FINDINGS: External fixator hardware is anchored to the mid tibia obvious several screws. There is also a trans-calcaneal anchor. A comminuted fracture of the distal fibula is relatively aligned. There are multiple fragments of bone clustered together at the fracture site but without callus. There is minimal angulation. Fracture extends into the medial malleolus but not into the inferior tip. There is an additional slightly comminuted transverse fracture through the medial malleolus which is normally aligned. The tibiotalar joint is normally aligned but there is mild joint space narrowing suggesting cartilage loss and primary osteoarthritis. There is an additional vertical intra-articular fracture through the distal tibia which is normally aligned. The talus and calcaneus are intact. The remaining tarsal bones are intact although there are degenerative subchondral cysts in multiple cuneiforms. Soft tissue windows reveals subcutaneous edema in the calf especially near the ankle. There is no focal fluid collection to suggest an abscess. IMPRESSION 1. External fixation of comminuted fibular and medial malleolus fractures. Also vertical intra-articular fracture of the distal tibia. (Trimalleolar injury). *Reading Radiologist: Carlos Estrada on 03/26/2021 at 1:51 PM Cristo Lewis MD CT ORDERABLES * ETT LINE PERFORMABLE (03/25/2021 8:30 PM DIRECTOR [employer]LE [employer] SOLUTIONS) Narrative Purnima Cardoso APRN-CRNA - 03/25/2021 8:30 PM DIRECTOR [employer] SOL[employer]IONS Purnima Cardoso APRN-CRNA 03/25/2021 8:32 PM Endotracheal Tube Placement: Patient Location: OR. Intubation Event Date/Time: 03/25/2021 8:23 PM Procedure: intubation ([id number]). Procedure Section: Sedation: under general anesthesia. Indications for Airway Management: anesthesia Procedure pretreatments used? No Induction: modified rapid sequence Patient Position: sniffing Mask Ventilation: easy. Blade Type: Horace Blade Size: 3 Laryngoscopy View: grade 1 (full cords) Intubation Adjuncts: stylet Tube: endotracheal tube Placement: oral Tube type: cuff - inflated Tube Size (MM): 7 Depth of Insertion (CM): 21 Measured From: lips Cuff volume (mL): 6 Cuff Inflated With: air Number of Attempts: 1. Placement Verified By: direct visualization, bilateral breath sounds, chest auscultation and CO2 monitor Tube secured with: adhesive tape. Dentition unchanged? Yes Difficult Airway? No. Procedure Start Time: 03/25/2021 8:23 PM. Staff Section Anesthesia Provider: Purnima Cardoso APRN-CRNA, Performed the procedure Provider #1: Jorge Diez DO. Jorge Diez DO GENERAL ANESTHESIA O EMILEEERAPOLLY * ETT LINE PERFORMABLE (03/25/2021 2:02 PM DIRECTOR [employer] SOLUTIONS) Torin Cotto APRN-CRNA - 03/25/2021 2:02 PM DIRECTOR [employer] SOLUTIONS Torin Zuniga APRN-CRNA 03/25/2021 2:02 PM Endotracheal Tube Placement: Patient Location: OR. Procedure: intubation ([id number]). Procedure Section: Sedation: under general anesthesia. Indications for Airway Management: anesthesia Procedure pretreatments used? No Induction: standard IV Patient Position: supine Mask Ventilation: easy. Blade Type: Horace Blade Size: 4 Laryngoscopy View: grade 1 (full cords) Intubation Adjuncts: stylet Tube: endotracheal tube Placement: oral Tube type: cuff - inflated Tube Size (MM): 7 Depth of Insertion (CM): 20 Measured From: gums Cuff volume (mL): 8 Cuff Inflated With: air Number of Attempts: 1. Placement Verified By: direct visualization, bilateral breath sounds and chest auscultation Tube secured with: adhesive tape. Difficult Airway? No. Staff Section Anesthesia Provider: Torin Zuniga APRN-CRNA, Performed the procedure Jorge Diez DO GENERAL ANESTHESIA O EMILEEERABLES * Moderate Sedation (03/25/2021 6:46 AM DIRECTOR [employer]) Bert Browning MD - 03/25/2021 6:46 AM DIRECTOR [employer]IONS Bert Narvaez MD 03/25/2021 6:49 AM Moderate Sedation Date/Time: 03/25/2021 6:46 AM Performed by: Bert Narvaez MD Authorized by: Bert Narvaez MD Consent: Consent obtained: Verbal Consent given by: Patient Indications: Procedure performed: Fracture reduction Procedure necessitating sedation performed by: Different physician Intended level of sedation: Moderate (conscious sedation) Pre-sedation assessment: ASA classification: class 3 - patient with severe systemic disease Pre-sedation assessments completed and reviewed: airway patency, anesthesia/sedation history, hydration status, mental status, pain level and respiratory function History of difficult intubation: no Immediate pre-procedure details: Reassessment: Patient reassessed immediately prior to procedure Reviewed: vital signs and relevant labs/tests Verified: bag valve mask available, emergency equipment available, intubation equipment available, IV patency confirmed, oxygen available and suction available Procedure details (see MAR for exact dosages): Sedation start time: 03/25/2021 4:50 AM Preoxygenation: Nonrebreather mask Sedation: Propofol Analgesia: Fentanyl Intra-procedure monitoring: Blood pressure monitoring, threat monitoring analyst, continuous pulse oximetry, frequent LOC assessments and frequent vital sign checks Intra-procedure events: none Sedation end time: 03/25/2021 5:05 AM Total sedation time (minutes): 15 Post-procedure details: Attendance: Constant attendance by certified staff until patient recovered Recovery: Patient returned to pre-procedure baseline Patient is stable for discharge or admission: yes Patient tolerance: Tolerated well, no immediate complications Bert Narvaez MD PROCEDURE/ANY R SURGICAL ORDERABLES * XR ANKLE RIGHT 2VW (03/25/2021 5:12 AM DIRECTOR [employer]IONS) Only the most recent of2 resultswithin the time period is included. Anatomical Region Laterality Modality Lower Extremity Radiographic Katja ging 03/25/2021 7:41 AM DIRECTOR [employer]IONS Narrative 03/25/2021 7:42 AM DIRECTOR [employer]UTIONS Right ankle 2 views HISTORY: Fracture dislocation. Findings/impression: Fracture dislocation of the ankle with dislocation of the tibia anterior to the talus with, fractures of the distal fibula and posterior malleolus and medial malleolus are noted with diffuse soft tissue swelling. *Reading Radiologist: Shen Espinosa on 03/25/2021 at 7:42 AM Procedure Note Shen Espinosa DO - 03/25/2021 Right ankle 2 views HISTORY: Fracture dislocation. Findings/impression: Fracture dislocation of the ankle with dislocation of the tibia anterior to the talus with, fractures of the distal fibula and posterior malleolus and medial malleolus are noted with diffuse soft tissue swelling. *Reading Radiologist: Shen Espinosa on 03/25/2021 at 7:42 AM Bert Narvaez MD DIAGNOSTIC KATJA GING ORDERABLES * XR ANKLE RIGHT 1VW (03/25/2021 3:44 AM DIRECTOR [employer] SOLUTIONS) Only the most recent of2 resultswithin the time period is included. Anatomical Region Laterality Modality Ankle / Foot, Lower Extremity Ra diographic Imaging 03/25/2021 7:52 AM DIRECTOR [employer]UTIONS Narrative 03/25/2021 9:04 AM DIRECTOR [employer]UTIONS INDICATION: Fracture COMPARISON: 03/25/2021 at 0342 hours TECHNIQUE: Frontal views of the right ankle. FINDINGS/IMPRESSION: Comminuted fracture of the distal fibular shaft, unchanged. Mildly displaced comminuted fracture of the medial malleolus, unchanged. The tibia is subluxed medially relative to the talar dome, unchanged. Soft tissue swelling is present. I, Shen Espinosa, have personally reviewed the images and I agree with this report. *Reading Radiologist: Shen Espinosa on 03/25/2021 at 9:04 AM Procedure Note Shen Espinosa, DO - 03/25/2021 INDICATION: Fracture COMPARISON: 03/25/2021 at 0342 hours TECHNIQUE: Frontal views of the right ankle. FINDINGS/IMPRESSION: Comminuted fracture of the distal fibular shaft, unchanged. Mildly displaced comminuted fracture of the medial malleolus, unchanged. The tibia is subluxed medially relative to the talar dome, unchanged. Soft tissue swelling is present. I, Shen Espinosa, have personally reviewed the images and I agree with this report. *Reading Radiologist: Shen Espinosa on 03/25/2021 at 9:04 AM Bert Narvaez MD DIAGNOSTIC KATJA GING ORDERABLES * SARS-COV-2 (COVID-19) FLU A/B RSV PCR RAPID (03/25/2021 2:20 AM DIRECTOR [employer]IONS) COVID-19 PCR Not detected Not detected 03/25/19 3:[address] [facility] Influenza A PCR Not detected Not detected 03/25/2021 3:[address] [facility] Influenza B PCR Not detected Not detected 03/25/2021 3:[address] [facility] RSV PCR Not detected Not detected 03/25/2021 3:[address] [facility] Microbiology SPECIMEN FROM NASOPHARYNGEAL STRUCTURE / Unknown Collection / Unknown 03/25/2021 2:20 AM DIRECTOR [employer] SOLUTIONS 03/25/2021 2:34 AM DIRECTOR [employer] SOLUTIONS Narrative [facility] - 03/25/2021 3:26 AM DIRECTOR MOBILE MED[employer] SOLUTIONS This nucleic acid amplification assay has been authorized by the Food and Drug administration (FDA) under an Emergency Use Authorization (EUA). This test is only authorized for the duration of time the declaration that circumstances exist justifying the authorization of emergency use of in vitro diagnostic tests for detection of SARS-CoV-2 virus and/or diagnosis of COVID-19 infection under section 564(b)(1) of the Act, 21 U.S.C 360bbb-3 (b)(1), unless the authorization is terminated or revoked sooner. Fact Sheets for this EUA assay are available upon request. Bert Narvaez MD LAB - MICROBIO LOGY ORDERABLES [facility] [address] [place] [address] * Critical Care (03/25/2021 1:43 AM DIRECTOR [employer]IONS) Narrative Bert Narvaez MD - 03/25/2021 1:43 AM DIRECTOR [employer] SOLUTIONS Bert Narvaez MD 03/25/2021 6:49 AM Critical Care Performed by: Bert Narvaez MD Authorized by: Bert Narvaez MD Critical care provider statement: Critical care time (minutes): 35 Critical care time was exclusive of: Separately billable procedures and treating other patients Critical care was necessary to treat or prevent imminent or life-threatening deterioration of the following conditions: Cardiac failure Critical care was time spent personally by me on the following activities: Development of treatment plan with patient or surrogate, evaluation of patient's response to treatment, examination of patient, obtaining history from patient or surrogate, ordering and performing treatments and interventions, ordering and review of laboratory studies, ordering and review of radiographic studies, pulse oximetry and re-evaluation of patient's condition Bert Narvaez MD PROCEDURE/ANY R SURGICAL ORDERABLES * (ABNORMAL) CULTURE FLUID+GRAM STAIN (09/12/2019 4:03 PM CDT) Culture Moderate Staphylococcus aureus(AA) MALICK 09/15/2019 10:[address] [facility] Comment:Staphylococcus aureu s methicillin-susceptible (MSSA) detected by penicillin binding protein immunoassay. Culture Moderate normal skin polo MALICK 09/15/2019 10:[address] [facility] Gram Stain Moderate Gram-positive cocci(AA) 09/15/2019 10:[address] [facility] Gram Stain Light Polymorphonuclear cells(AA) 09/15/2019 10:[address] [facility] Fluid BODY FLUID SPECIMEN / Unknown Collection / Unknown 09/12/2019 4:03 PM CDT 09/12/2019 4:31 PM CDT Narrative Organism Antibiotic Method Susceptibility Staphylococcus aureus Clindamycin MALICK 0.25 ug/mL: Susceptible Staphylococcus aureus Doxycycline MALICK <=0.5 ug/mL: Susceptible Staphylococcus aureus Erythromycin MALICK <=0.25 ug/mL: Susceptible Staphylococcus aureus Gentamicin MALICK <=0.5 ug/mL: Susceptible Staphylococcus aureus Inducible Clindamy hugo Resistance MALICK NEG ug/mL: Neg Staphylococcus aureus Linezolid MALICK 4 ug/mL: Susceptible Staphylococcus aureus Oxacillin MALICK <=0.25 ug/mL: Susceptible Staphylococcus aureus Tetracycline MALICK <=1 ug/mL: Susceptible Staphylococcus aureus Trimethoprim-sulfa methoxa zole MALICK <=10 ug/mL: Susceptible Staphylococcus aureus Vancomycin MALICK <=0.5 ug/mL: Susceptible Comment:Methicillin-suscepti ble Staphylococci are susceptible to oxacillin, nafcillin, cloxacillin,dicloxacillin, beta lactam/betalactamase inhibitor combinations, cephalosporins including cefazolin and carbapenems. Juan Ortez MD LAB - MICROBIOLOGY O RDERABLES [facility] [address] [place], [place] [address], [facility] [phone] * SARS-COV-2 (COVID-19) IN HOUSE (09/11/2019 9:15 AM CDT) COVID-19 PCR Not detected Not detected, Invalid 09/11/2019 7:[address] [facility] Microbiology SPECIMEN FROM NASOPHARYNGEAL STRUCTURE / Unknown Collection / Unknown 09/11/2019 9:15 AM CDT 09/11/2019 10:[address] [facility] - 09/11/2019 7:14 PM CDT This nucleic acid amplification assay performance was validated by [facility]. This test has been authorized by the Food and Drug administration (FDA)under an Emergency Use Authorization (EUA). This test has been validated in accordance with the FDA's guidance document Policy for Diagnostic Testing in Laboratories Certified to perform High Complexity Testing under CLIA prior to Emergency Use Authorization for Coronavirus Disease-2019 during the Public Health Emergency issued on May 19, 2019. FDA independent review of this validation is pending. This test is only authorized for the duration of time the declaration that circumstances exist justifying the authorization of emergency use of in vitro diagnostic tests for detection of SARS-CoV-2 virus and/or diagnosis of COVID-19 infection under section 564(b)(1) of the Act, 21 U.S.C 360bbb-3 (b)(1), unless the authorization is terminated or revoked sooner. Sawyer Ware MD LAB - MICROBIOLOGY O RDERABLES [facility] [address] [place] [address], [facility] [phone] * CT HAND RIGHT W CONTRAST (09/04/2019 10:05 AM CDT) Anatomical Region Laterality Modality Wrist / Hand Computed Tomogra phy 09/04/2019 10:1 1 AM CDT Impressions 09/05/2019 7:54 AM CDT IMPRESSION: 1. A linear defect in the soft tissues at the palmar aspect of the hand at the level of the third metacarpal head consistent with a wound. This extends 1.4 cm deep to the skin surface. Surrounding inflammation consistent with cellulitis/myositis. 2. Just distal to this wound is a 1.6 x 0.8 x 0.7 cm peripherally enhancing fluid collection in the palmar aspect of the third digit (long finger) at the level of the proximal phalanx consistent with an abscess versus infectious tenosynovitis. Dictated by Angelique Salinas MD (vice president tax). I, Dr. HUMBERTO WINSLOW MD have personally reviewed and interpreted this examination/study. This report was electronically signed by HUMBERTO WINSLOW MD on 09/05/2019 7:54 AM . Narrative 09/05/2019 7:54 AM CDT ORDER DATE: 09/04/2019 10:09 AM EXAMINATION: CT HAND RIGHT W CONTRAST HISTORY: A49.01: MSSA (methicillin susceptible Staphylococcus aureus) infection T81.49XA: Postoperative wound infection COMPARISON: Comparison is made with a right hand radiograph from 09/07/2018 FINDINGS: Redemonstrated postoperative appearance of amputation of the second digit at the level of the proximal metacarpal. There is no acute fracture or dislocation. There is mild to moderate arthritis of multiple joints in the wrist and hand. No bone erosion is seen to indicate osteomyelitis. There is a rim-enhancing fluid collection adjacent to the palmar aspect of the third digit (long finger) proximal phalanx measuring 0.8 x 0.7 cm in the axial plane and 1.6 cm proximal-distal (series 3 image 38 and series 6 image 24-26). This appears to be located around or immediately superficial to the flexor tendon and may represent an abscess or focal tenosynovitis. There is thickening and increased enhancement of the subcutaneous tissues and musculature at the palmar aspect of the hand at the level of the third metacarpophalangeal joint consistent with inflammation. In this region is a linear hypointense defect extending to the skin consistent with a wound. The linear defect extends approximately 1.4 cm deep to the skin surface and measures approximately 1.6 cm in transverse dimension (series 5 image 12) (series 3 image 45, series 5 image 34, series 6 image 27). This is located adjacent to the proximal end of the above-mentioned third digit fluid collection. No other fluid collection is seen. Procedure Note Humberto Winslow MD - 09/05/2019 ORDER DATE: 09/04/2019 10:09 AM EXAMINATION: CT HAND RIGHT W CONTRAST HISTORY: A49.01: MSSA (methicillin susceptible Staphylococcus aureus) infection T81.49XA: Postoperative wound infection COMPARISON: Comparison is made with a right hand radiograph from09/07/2018 FINDINGS: Redemonstrated postoperative appearance of amputation of the seconddigit at the level of the proximal metacarpal. There is no acute fracture or dislocation. There is mild to moderate arthritis of multiple joints in the wrist and hand. No bone erosion is seen to indicate osteomyelitis. There is a rim-enhancing fluid collection adjacent to the palmar aspectof the third digit (long finger) proximal phalanx measuring 0.8 x 0.7 cm in the axial plane and 1.6 cm proximal-distal (series 3 image 38 and series6 image 24-26). This appears to be located around or immediatelysuperficial to the flexor tendon and may represent an abscess or focaltenosynovitis. There is thickening and increased enhancement of the subcutaneoustissues and musculature at the palmar aspect of the hand at the level of thethird metacarpophalangeal joint consistent with inflammation. In this regionis a linear hypointense defect extending to the skin consistent with awound. The linear defect extends approximately 1.4 cm deep to the skin surface and measures approximately 1.6 cm in transverse dimension (series 5image 12) (series 3 image 45, series 5 image 34, series 6 image 27). This is located adjacent to the proximal end of the above-mentioned third digit fluid collection. No other fluid collection is seen. IMPRESSION: 1. A linear defect in the soft tissues at the palmar aspect of the handat the level of the third metacarpal head consistent with a wound. This extends 1.4 cm deep to the skin surface. Surrounding inflammation consistent with cellulitis/myositis. 2. Just distal to this wound is a 1.6 x 0.8 x 0.7 cm peripherally enhancing fluid collection in the palmar aspect of the third digit (long finger) at the level of the proximal phalanx consistent with an abscess versus infectious tenosynovitis. Dictated by Angelique Salinas MD (vice president tax). I, Dr. HUMBERTO WINSLOW MD have personally reviewed and interpreted this examination/study. This report was electronically signed by HUMBERTO WINSLOW MD on09/05/2019 7:54 AM . Alena Pedroza MD CT ORDERABLES * (ABNORMAL) CULTURE ABSCESS+GRAM STAIN (07/30/2019 12:47 PM CDT) Only the most recent of2 resultswithin the time period is included. Culture Heavy Staphylococcus aureus(A) MALICK 08/01/2019 8:[address] [facility] [facility] Comment: Staphylococcus aureus methicillin-susceptible (MSSA) detected by penicillin binding protein immunoassay. Strain 1 Culture Heavy Staphylococcus aureus(A) MALICK 08/01/2019 8:08 AM [facility]CROBI[facility] Comment: Staphylococcus aureus methicillin-susceptible (MSSA) detected by penicillin binding protein immunoassay. Strain 2 Gram Stain No polymorphonuclear cells 08/01/2019 8:08 AM [facility]CROBI[facility] Gram Stain Rare Gram-positive cocci 08/01/2019 8:08 AM [facility]CROBI[facility] Microbiology ENTIRE HAND / Unknown Collection / Unknown 07/30/2019 12:47 PM CDT 07/30/2019 12:51 PM CDT Narrative Organism Antibiotic Method Susceptibility Staphylococcus aureus Clindamycin MALICK 0.25 ug/mL: Susceptible Staphylococcus aureus Doxycycline MALICK <=0.5 ug/mL: Susceptible Staphylococcus aureus Erythromycin MALICK <=0.25 ug/mL: Susceptible Staphylococcus aureus Gentamicin MALICK <=0.5 ug/mL: Susceptible Staphylococcus aureus Inducible Clindamy hugo Resistance MALICK NEG ug/mL: Neg Staphylococcus aureus Linezolid MALICK 4 ug/mL: Susceptible Staphylococcus aureus Oxacillin MALICK 0.5 ug/mL: Susceptible Staphylococcus aureus Tetracycline MALICK <=1 ug/mL: Susceptible Staphylococcus aureus Trimethoprim-sulfa methoxa zole MALICK <=10 ug/mL: Susceptible Staphylococcus aureus Vancomycin MALICK <=0.5 ug/mL: Susceptible Comment:Methicillin-suscepti ble Staphylococci are susceptible to oxacillin, nafcillin, cloxacillin,dicloxacillin, beta lactam/betalactamase inhibitor combinations, cephalosporins including cefazolin and carbapenems. Staphylococcus aureus Clindamycin MALICK 0.25 ug/mL: Susceptible Staphylococcus aureus Doxycycline MALICK <=0.5 ug/mL: Susceptible Staphylococcus aureus Erythromycin MALICK <=0.25 ug/mL: Susceptible Staphylococcus aureus Gentamicin MALICK <=0.5 ug/mL: Susceptible Staphylococcus aureus Inducible Clindamy hugo Resistance MALICK NEG ug/mL: Neg Staphylococcus aureus Linezolid MALICK 2 ug/mL: Susceptible Staphylococcus aureus Oxacillin MALICK 0.5 ug/mL: Susceptible Staphylococcus aureus Tetracycline MALICK <=1 ug/mL: Susceptible Staphylococcus aureus Trimethoprim-sulfa methoxa zole MALICK <=10 ug/mL: Susceptible Staphylococcus aureus Vancomycin MALICK 1 ug/mL: Susceptible Comment:Methicillin-suscepti ble Staphylococci are susceptible to oxacillin, nafcillin, cloxacillin,dicloxacillin, beta lactam/betalactamase inhibitor combinations, cephalosporins including cefazolin and carbapenems. Alen Tom MD LAB - MICROBIOLOGY ORDERABLES [facility] [place] [facility] [address] [place] [address], [facility] [phone] * (ABNORMAL) CULTURE TISSUE+GRAM STAIN (05/23/2019 3:10 PM [employer]) Only the most recent of2 resultswithin the time period is included. Culture Rare Staphylococcus aureus(AA) MALICK 05/26/2019 11:56 AM DIRECTOR [employer] [facility] Comment:Staphylococcus aureu s methicillin-susceptible (MSSA) detected by penicillin binding protein immunoassay. Gram Stain No organisms seen 11:56 AM [facility] MICROBIOLOGY Gram Stain No organisms seen 11:56 AM [facility] MICROBIOLOGY Microbiology MASS / Unknown Collection / Unknown 05/23/2019 3:10 PM [employer] 05/23/2019 5:07 PM [employer] Narrative Organism Antibiotic Method Susceptibility Staphylococcus aureus Clindamycin MALICK 0.25 ug/mL: Susceptible Staphylococcus aureus Doxycycline MALICK <=0.5 ug/mL: Susceptible Staphylococcus aureus Erythromycin MALICK <=0.25 ug/mL: Susceptible Staphylococcus aureus Gentamicin MALICK <=0.5 ug/mL: Susceptible Staphylococcus aureus Inducible Clindamy hugo Resistance MALICK NEG ug/mL: Neg Staphylococcus aureus Linezolid MALICK 2 ug/mL: Susceptible Staphylococcus aureus Oxacillin MALICK 0.5 ug/mL: Susceptible Staphylococcus aureus Tetracycline MALICK <=1 ug/mL: Susceptible Staphylococcus aureus Trimethoprim-sulfa methoxa zole MALICK <=10 ug/mL: Susceptible Staphylococcus aureus Vancomycin MALICK <=0.5 ug/mL: Susceptible Comment:Methicillin-suscepti ble Staphylococci are susceptible to oxacillin, nafcillin, cloxacillin,dicloxacillin, beta lactam/betalactamase inhibitor combinations, cephalosporins including cefazolin and carbapenems. Juan Ortez MD LAB - MICROBIOLOGY O [facility] [address] [place], [place] [address], [facility] [phone] * LARYNGEAL MASK AIRWAY (05/23/2019 2:48 PM [employer]) Narrative Varsha Avila Anes Asst - 05/23/2019 2:48 PM [employer] Varsha Avila Anes Asst 05/23/2019 2:49 PM LMA Placement Procedure/LDA Note: Patient Location: OR. LMA Insertion Date/Time: 05/23/2019 2:39 PM Procedure: LMA. Pretreatment: 100% O2 Induction: standard IV Patient position: supine. Mask Ventilation: easy Type: LMA Size: 4 Number of Attempts: 1. Placement verified by: CO2 monitor Procedure Start Time: 05/23/2019 2:39 PM. Staff Section Anesthesia Provider: Varsha Avila Anes Asst, Performed the procedure Christiano Thomson MD GENERAL ANESTHESIA O EMILEEERAPOLLY * LARYNGEAL MASK AIRWAY (01/03/2019 11:37 AM CDT) Narrative Ivan Abarca, DO - 01/03/2019 11:37 AM CDT Ivan Abarca, DO 01/03/2019 11:49 AM LMA Placement Procedure/LDA Note: Patient Location: OR. LMA Insertion Date/Time: 01/03/2019 11:30 AM Procedure: LMA. Pretreatment: 100% O2 Induction: standard IV Patient position: sniffing. Mask Ventilation: easy Type: LMA Size: 4 Number of Attempts: 1. Cuff volume (mL): 15 Placement verified by: direct visualization, bilateral breath sounds, chest auscultation and CO2 monitor Procedure Start Time: 01/03/2019 11:30 AM. Procedure End Time: 01/03/2019 11:31 AM. Procedure Total Time: 1 minutes. Staff Section Anesthesia Provider: Parrish Mcnulty), BLADE WORKER-FLIGHT RADIO OPERATOR, Performed the procedure Jaz Lopez MD GENERAL ANESTHESIA O EMILEEERAPOLLY * XR HAND 3+ VW RIGHT (09/15/2018 8:53 AM CDT) Anatomical Region Laterality Modality Wrist / Hand Radiographic Katja ging 09/15/2018 9:33 AM CDT Impressions 09/15/2018 9:47 AM CDT Impression: 1. Postoperative appearance of amputation of the second digit. No areas of bony erosion is seen to suggest osteomyelitis. 2. Moderate distal interphalangeal joint osteoarthritis. Dictated by Gregg Pal MD (Resident) Fariba, Dr. HUMBERTO WINSLOW MD have personally reviewed and interpreted this examination/study. This report was electronically signed by HUMBERTO WINSLOW MD on 09/15/2018 9:47 AM . Narrative 09/15/2018 9:47 AM CDT Exam: XR HAND RIGHT 3 views Date: 09/15/2018 8:53 AM History: S61.401D: Open wound of right hand, foreign body presence unspecified, unspecified wound type, subsequent encounter Comparison: None. Findings: Postoperative appearance of amputation of the second digit at the level of the proximal shaft of the metacarpal is present with appropriate cortication of the amputated bone. No acute fracture is seen. There is mild to moderate osteoarthritis of the distal interphalangeal joints, greatest at the fifth. 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 No areas of bony erosion are seen to suggest osteomyelitis. Procedure Note Humberto Winslow MD - 09/15/2018 Exam: XR HAND RIGHT 3 views Date: 09/15/2018 8:53 AM History: S61.401D: Open wound of right hand, foreign body presence unspecified, unspecified wound type, subsequent encounter Comparison: None. Findings: Postoperative appearance of amputation of the second digit at the levelof the proximal shaft of the metacarpal is present with appropriate cortication of the amputated bone. No acute fracture is seen. There is mild to moderate osteoarthritis of the distal interphalangeal joints, greatest at the fifth. 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 No areas of bony erosion are seen to suggest osteomyelitis. Impression: 1. Postoperative appearance of amputation of the second digit. No areasof bony erosion is seen to suggest osteomyelitis. 2. Moderate distal interphalangeal joint osteoarthritis. Dictated by Gregg Pal MD (Resident) Fariba, Dr. HUMBERTO WINSLOW MD have personally reviewed and interpreted this examination/study. This report was electronically signed by HUMBERTO WINSLOW MD on09/15/2018 9:47 AM . Dagoberto Hart MD DIAGNOSTIC IMAG ING ORDERABLES * ENDOTRACHEAL TUBE NOTE (09/02/2017 11:46 AM CDT) Narrative Bert Weber MD - 09/02/2017 11:46 AM CDT Shlomodia Annie Pepper, BLADE WORKER-FLIGHT RADIO OPERATOR 08/31/2017 11:26 AM Endotracheal Tube Placement: Patient Location: OR. Intubation Event Date/Time: 08/31/2017 10:58 AM Procedure: intubation ([id number]). Procedure Section: Sedation: under general anesthesia. Indications for Airway Management: anesthesia Pretreatment: 100% O2. Induction: standard IV Patient Position: supine Mask Ventilation: easy with oral airway. Blade Type: Horace Blade Size: 3 Laryngoscopy View: grade 1 (full cords) Intubation Adjuncts: stylet Device: endotracheal tube Placement: oral Tube type: cuff - inflated Tube Size (MM): 7 Depth of Insertion (CM): 22 Measured From: gums Cuff Inflated With: air Number of Attempts: 2 (1st attempt by resident for training purposes). Placement Verified By: bilateral breath sounds, chest auscultation, CO2 monitor and direct visualization Tube secured with: adhesive tape. Difficult Airway? No. Procedure Start Time: 08/31/2017 10:58 AM. Staff Section Anesthesia Provider: BERT WEBER, Performed Provider #1: VINNIE BECKHAM, Berna. Bert Weber MD GENERAL ANESTHESIA O RDERABLES * XR ELBOW LEFT 3VW OR MORE (07/29/2017 9:08 AM CDT) Anatomical Region Laterality Modality Upper Extremity Radiographic Katja ging 07/29/2017 9:07 AM CDT Impressions 07/29/2017 9:42 AM CDT IMPRESSION: No acute osseous abnormality. No evidence of osteomyelitis. Dictated by Gregor Rehman MD (vice president tax). I, Dr. MAURI CACERES M.D. have personally reviewed and interpreted this examination/study. This report was electronically signed by MAURI CACERES M.D. on 07/29/2017 9:42 AM . Narrative 07/29/2017 9:42 AM CDT EXAMINATION: XR ELBOW LEFT 3VW OR MORE HISTORY: S41.102A: Open wound of left upper arm, initial encounter COMPARISON: No prior study is available for comparison. FINDINGS: The osseous structures are intact and well aligned without acute fracture or dislocation. The joint spaces are preserved. No joint effusion is seen. Bone density and texture are normal. Mild soft tissue swelling is present medially. Punctate metallic foreign body is seen in the anterior soft tissues of the distal arm. Linear and punctate calcifications are seen in the anterior soft tissues at the elbow and proximal forearm. Procedure Note Mauri Caceres MD - 07/29/2017 EXAMINATION: XR ELBOW LEFT 3VW OR MORE HISTORY: S41.102A: Open wound of left upper arm, initial encounter COMPARISON: No prior study is available for comparison. FINDINGS: The osseous structures are intact and well aligned without acutefracture or dislocation. The joint spaces are preserved. No joint effusion isseen. Bone density and texture are normal. Mild soft tissue swelling ispresent medially. Punctate metallic foreign body is seen in the anterior soft tissues of the distal arm. Linear and punctate calcifications are seenin the anterior soft tissues at the elbow and proximal forearm. IMPRESSION: No acute osseous abnormality. No evidence of osteomyelitis. Dictated by Gregor Rehman MD (vice president tax). I, Dr. MAURI CACERES M.D. have personally reviewed and interpreted this examination/study. This report was electronically signed by MAURI CACERES M.D. on 07/29/2017 9:42 AM . Olaf Orr MD DIAGNOSTIC IMAGING ORDERABLES * (ABNORMAL) GLUCOSE ACCUCHECK (04/21/2017 9:01 AM [employer]) Only the most recent of2 resultswithin the time period is included. Glucose, Fingerstick 130(H) 70-115mg/d L mg/dL [facility] AM[facility]O ELMORECARLINE) Comment: Physician Notified Real Estate Representative: APRIL SALINAS 04/21/2017 9:01 AM [employer] Juan Ortez MD LAB - CHEMISTRY DIAMANTE CARCAMO [facility] Organization Address City/State/ZIP Co de Phone Number [place]) * BLOOD GASES ART (04/21/2017 7:38 AM [employer]) Pathologist [facility] Potassium POCT 4.5 3.5 - 4.5 mmol/L JARAD PATRICIAMissy ([place]) Comment: Sample Type: Venous Real Estate Representative: VALDO MARION 04/21/2017 7:38 AM [employer] Juan Ortez MD LAB - BLOOD GASES OR DERABLES JARAD SAXENA) Care Teams Generation Engineer Relationship Specialty Start Date End Date Ernesto Alfaro MD [address] [place] [address] PCP - General 01/03/17
--- OUTSIDE RECORDS SUMMARY | 2024-05-01 00:28 | XMS_ITS ---
Author Organization [facility] Address [address] [place], [place] [id number] Care Team Providers [address] Glassware Replacer Name Role Phone Ernesto Alfaro Unavailable Unavailable JONNA LANGSTON Unavailable [phone] Allergies Allergen (clinical drug ingredient) Drug/Non Drug Allergy documented on EMR Reaction Allergy Type Onset Date Status Keflex Unknown Drug Allergy Active aspirin Aspirin Unknown Drug Allergy Active menthol Menthol Unknown Drug Allergy Active REASON FOR VISIT The patient reports that her right foot and ankle are sore. This leg is more swollen than the left.She has been told it is various things in the past and is a bit frustrated at what is going on. Shedenies any N/V/F/C. She denies any break in the skin or drainage., Patient presents for at-risk foot care . The patient has painful toenails that are causing difficulty with ambulation and shoegear. The onset is gradual. The patient has diabetes mellitus Medications Medication SIG (Take, Route, Frequency, Duration) Notes Start Date End Date Status Clindamycin HCl 150 MG 1 capsule Orally three time a day for 7 days 04/23/2024 04/30/2024 Active Encounters Encounter Location Date Provider Diagnosis [facility] [address] [place], [place] [id number] 04/23/2024 JONNA LANGSTON Cellulitis of right lower limb L03.115 ; Venous insufficiency (chronic) (peripheral) I87.2 ; Tinea unguium B35.1 ; Pain in right toe(s) M79.674 ; Pain in left toe(s) M79.675 ; Atherosclerosis of [place] arteries of extremities with intermittent claudication, bilateral legs I70.213 and Type 2 diabetes mellitus with other circulatory complications E11.59 Assessments Encounter Date Diagnosis (ICD Code) Assessment Notes Treatment Notes Treatment Clinical Notes Section Notes 04/23/2024 Cellulitis of right lower limb (ICD-10 [...] office then proceed to the nearest ER. 04/23/2024 Venous insufficiency (chronic) (peripheral) (ICD-10 - [...] for support, compression and edema control. 04/23/2024 Tinea unguium (ICD-10 - B35.1) NAIL DEBRIDEMENT: Nails 1-5 Bilateral were debrided extensively with nail nippers and emery board, reducing length and girth to pink healthy tissue with any subungual debris and necrotic tissue removed 04/23/2024 Pain in right toe(s) (ICD-10 - M79.674) 04/23/2024 Pain in left toe(s) (ICD-10 - M79.675) 04/23/2024 Atherosclerosis of [place] arteries of extremities with intermittent claudication, bilateral legs (ICD-10 - I70.213) 04/23/2024 Type 2 diabetes mellitus with other circulatory complications (ICD-10 - E11.59) Diabetic Foot Care: The patient was educated on diabetes and the lower extremity. The patient was instructed to check his feet daily to report any problems or signs of infection immediately. The patient was provided written information on Diabetic Foot Care as well as the Amputation Prevention Guide. Plan Of Treatment Medication Medication Name Sig Start Date Stop Date Notes Clindamycin HCl 150 MG 1 capsule Orally three time a day for 7 days 04/23/2024 04/30/2024 Treatment Notes Assessment Notes Cellulitis of right lower limb Infection Protocol: Patient instructed to observe foot for signs and symptoms of infection, including but not limited to: increased redness and warmth to the area, increased drainage from the area, foul odor, and/or presence of fever/chills/nausea/vomiting. If patient experiences any of the above they are to call the office immediately, if someone is not present in the office then proceed to the nearest ER. Venous insufficiency (chronic) (peripher al) Edema Recommendations: Advised patient on edema treatment [...] applied for support, compression and edema control. Tinea unguium NAIL DEBRIDEMENT: Na ils 1-5 [...] Prevention Guide. Next Appt Details Follow Up: 1 weeks; 10 - 12 weeks, Reason: 1 week: see how compression and antibiotic helped. 10-12 weeks: At-Risk Foot care, sooner if problems develop. Provider Name:JONNA LANGSTON, 08:40:00 AM, [address], [facility], [place], [place], [id number], Provider Name:JONNA LANGSTON, 08:30:00 AM, [address], [facility], [place], [place], [id number], Progress Notes * Brigido TENORIOOB:[birth year] (73 yo F)Acc No.[id number]:04/23/2024 Patient: Otilia [place] Provider: Larry Langston DPM :1950 A ge:73 Y S ex:Female Date:04/23/2024 Address:[address] [place], [place] [id number] Subjective: * Chief Complaints: * 1 . The patient reports that her right foot and ankle are sore. This leg is more swollen than the left. She has been told it is various things in the past and is a bit frustrated at what is going on. She denies any N/V/F/C. She denies any break in the skin or drainage.. 2. Patient presents for at-risk foot care . The patient has painful toenails that are causing difficulty with ambulation and shoegear. The onset is gradual. The patient has diabetes mellitus. * HPI: H PI: General care P wilfrid presents to the office for diabetic foot care. Patient states that their nails are thickened, elongated and painful. Patient states that it is aggravated by shoe gear. Onset is gradual., Patient denies taking blood thinners., Date last seen by Dr. Alfaro was March 2024., Initials LB , Patient presents to the office for [...] M usculoskeletal: Patient denies w eakness. P wilfrid complains of H /O OIF right ankle, hardware removal right ankle. P eripheral Vascular: Patient denies p ain / cramping in legs after exertion, ulceration of feet. S kin: Patient complains of f ungal nails, nail changes. ? N eurologic: Patient denies b alance difficulty, confusion, difficulty speaking, dizziness. * Medical History: * Allergies: A spirin, Keflex, Menthol. Objective: * Vitals: * Examination: P hysical Examination: General appearance: A lert, pleasant, well-nourished and in no acute distress. D ermatologic: Skin findings: S kin is thin, atrophic and lacking pedal hair. The right leg has erythema, xerotic skin, slight brownish hemosiderin deposition, along with mild calor. N o break in the skin, no ulceration, no streaking. Nail pathology: N ails 1, 2, 3, 4, and 5 bilateral are elongated, thick, discolored, and dystrophic with subungual debris. They are painful to palpation. ? V ascular: Dorsalis pedis pulse: 1 /4 b ilateral. Posterior tibial pulse: 0 /4 bilateral. Capillary refill: g reater than 3 seconds. Edema: m efc-pl-gjckbozm edema bilateral, right is greater than left. N eurologic: Gross sensation G rossly intact to light touch. There is negative Tinel's sign. M usculoskeletal: Muscle Strength M uscle strength is 5/5 in regards to dorsiflexion, plantarflexion, inversion, and eversion in bilateral lower extremities. ? Assessment: * Assessment: 1. C ellulitis of right lower limb - L03.115 (Primary) 2 . V enous insufficiency (chronic) (peripheral) - I87.2 3 . T inea unguium - B35.1 4 . P ain in right toe(s) - M79.674 5 . P ain in left toe(s) - M79.675 & #160; 6 . A therosclerosis of [place] arteries of extremities with intermittent claudication, bilateral legs - I70.213 7 . T ype 2 diabetes mellitus with other circulatory complications - E11.59 Plan: * Treatment: 2. V enous insufficiency (chronic) (peripheral) Notes: Edema Recommendations: Advised patient on edema treatment [...] applied for support, compression and edema control. 3. T inea unguium Notes: NAIL DEBRIDEMENT: Nails 1-5 Bilateral were debrided extensively with nail nippers and emery board, reducing length and girth to pink healthy tissue with any subungual debris and necrotic tissue removed 4. T ype 2 diabetes mellitus with other circulatory complications Notes: Diabetic Foot Care: The patient was educated on diabetes and the lower extremity. The patient was instructed to check his feet daily to report any problems or signs of infection immediately. The patient was provided written information on Diabetic Foot Care as well as the Amputation Prevention Guide. * Follow Up: 1 weeks; 10 - 12 weeks (Reason: 1 week: see how compression and antibiotic helped. 10-12 weeks: At-Risk Foot care, sooner if problems develop.) * Billing Information: * Visit Code: * Procedure Codes: * Electronic signature of JONNA LANGSTON DPM on 05/01/2024 at 12:27 AM PUBLIC INTERVIEWER Sign off status: Pending * Provider: Larry Langston DPM Date: 04/23/2024 Generated for Parker michaud/Corey/Melida on: 05/01/2024 12:27 AM PUBLIC INTERVIEWER History and Physical Notes * HPI (History of Present Illness) Category Sub-Category Detail Notes Category Not es HPI General care Patient presents to the office for diabetic foot care. Patient states that their nails are thickened, elongated and painful. Patient states that it is aggravated by shoe gear. Onset is gradual., Patient denies taking blood thinners., Date last seen by Dr. Alfaro was March 2024., Initials LB , Patient presents to the office for [...] is thin, at rophic and lacking pedal hair. The right leg has erythema, xerotic skin, slight brownish hemosiderin deposition, along with mild calor. No break in the skin, no ulceration, no streaking Nail pathology: Nails 1, 2, 3, 4, an d 5 bilateral are elongated, thick, discolored, and dystrophic with subungual debris. They are painful to palpation Neurologic Gross sensation Grossly intact t o light touch. There is negative Tinel's sign Vascular Dorsalis pedis pulse: 1/4 bilateral Edema: lqaf-oo-sjcwrlqo braxton ma bilateral, right is greater than left Capillary refill: greater than 3 secon ds Posterior tibial pulse: 0/4 bilateral Physical Examination General appearance: Alert, pleasant, well-nourished and in no acute distress Musculoskeletal Muscle Strength Muscle strength is 5/5 in regards to dorsiflexion, plantarflexion, inversion, and eversion in bilateral lower extremities
--- OUTSIDE RECORDS SUMMARY | 2024-05-01 00:28 | XMS_ITS ---
Author Organization [facility] Address [address] 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 Eventually referred to Dr. Ortez at [facility], underwent multiple I&Ds and Matristem placement. Finally [...] CDT): Trigger finger, right ring finger 10/31/2017 Current Oncology Plans BREAST MET (PEMBROLIZUMAB) Q21 DAYS* Plan Start Date:09/05/2023 Plan Provider:Redd Middleton MD Linked Problems Malignant neoplasm of upper- outer quadrant of left breast in female, estrogen receptor negative (HCC) Treatment Medications Current Day (Day 1 , Cycle 10 - Planned for 05/08/2024) pembrolizumab (Keytruda) Infusion pembro lizumab (Keytruda) 200 mg in 0.9% NaCl IV 108 mL infusion Past Plans ONCOLOGY TREATMENT Plan Name Start Date Discontinue Date Treatment Medications Discontinue Reason Plan Provider Cycles BREAST NEOADJ (PEMBROLIZUMA B PACLITAXEL CARBOPLATIN-Q 3W) Q21 DAYS--> (PEMBROLIZUMA B DOXORUBICIN CYCLOPHOSPHAM MARVIN) Q21 DAYS --> ADJUVANT (PEMBROLIZUMA B) Q21 DAYS 3 04/22/2023 CARBOplatin (Paraplatin) Infusion (AUC Dosing)cycloPHOSphamide (Cytoxan)DOXOrubicin (Adriamycin)PACLitaxel (Taxol)PACLitaxel (Taxol) in 250 mL infusionpembrolizumab (Keytruda) Infusion Change in Level of Care Redd Middleton MD 5 of 17 cycles started Radiation Treatments * Plan Last Treated On Elapsed Days Fractions Treated Prescribed Fraction Dose Prescribed Total Dose #LBreast+Nd s* 09/23/2023 15 of 15 4,800 cGy Reference Point Last Treated On Elapsed Days Session Dose Total Dose PTV_Lump_Eval_L 09/23/2023 320 cGy 4,800 cGy Lifetime Dose Tracking * Chemical Lifetime Dose Automatic Entry Manual Entr y Dose Length Product 2,480.55 mGy-cm 2,480.55 mGy-cm 0 mGy-cm Resolved Problems Problem Noted Date Diagnosed Date [...]
--- OUTSIDE RECORDS SUMMARY | 2024-05-01 00:28 | XMS_ITS | Encounter Summary ---
Author Organization [facility] Address [address] [place] [address] Care Team Providers Care Custodial Operations Manager Name Role Phone Ernesto Alfaro MD Primary Care Provider [phone] Encounter Details Date Type Department Care Team (Late st Contact Info) Description 03/08/2022 Telephone [facility] [address] [place], [place] [id number] Amita Zhang MD [address] [place] [address] Social History Tobacco Use Types Packs/Day Years Used Date Smoking Tobacco: Some Days Cigarettes 0.5 45 Smokeless Tobacco: Never Comments:10 cigs since Nov 2021, trying to cut down Alcohol Use Standard Drinks/Week Comments No 0 (1 standard drink = 0.6 oz pur e alcohol) AUDIT-C Answer Date Recorded Q1: How often do you have a drink containing alc ohol? Monthly or less 02/15/2022 Q2: How many drinks containi ng alcohol do you have on a typical day when you are drinking? 1 or 2 02/15/2022 Q3: How often do you have si x or more drinks on one occasion? Less than monthly 02/15/2022 Hunger Vital Sign Answer Date Recorded Within the past 12 months, y ou worried that your food would run out before you got the money to buy more. Never true 02/19/20 22 Within the past 12 months, t he food you bought just didn't last and you didn't have money to get more. Never true 02/18/2022 Sex and Gender Information Value Date Recorded Sex Assigned at Not on file Gender Identity Female 09/24/2023 8:56 AM CDT Sexual Orientation Not on file documented as of this encounter Functional Status Functional Status Response Date of Assess ment Is person deaf or have serious hearing difficult y? Yes 12/08/2021 Is person blind or have serious difficulty seein g? No 12/08/2021 Does person have serious dif ficulty walking/climbing stairs? No 12/08/2021 Does person have difficulty dressing/bathing? No 12/08/2021 Does person have difficulty doing errands alone? No 12/08/2021 Cognitive Status Response Date of Assessm ent Does person have difficulty concentrating/remembering/making decisions? No 12/08/2021 documented as of this encounter Miscellaneous Notes * Telephone Encounter - Miguel Mcdermott - 03/08/2022 12:51 PM CST Patient was not aware of her appointment on Tuesday the at 12:30pm. Patient is requesting toni rescheduled for next week but nothing is available on my end of scheduling until April, please advise the appointment for 03/10/22 has been cancelled due to the patient not being able to make that appointment. Call Back #: [phone] [facility] documented in this encounter Plan of Treatment Upcoming Encounters Date Type Department Care Team (Late st Contact Info) Description 05/07/2024 9:20 AM [facility] Office Visit [facility] - Hematology/Oncology [address] [place] [address] Redd Middleton MD [address] [place] [address] 05/08/2024 8:40 AM [facility] Hospital Encounter [facility] [address] [place] [address] Ernesto Alfaro MD [address] [place] [phone] 05/08/2024 8:45 AM [facility] Office Visit [facility] - Orthopedics [address] [facility] [place] [address] Patrick Burgos DO [address] [facility] [place] [address] 05/29/2024 9:00 AM CDT Appointment [facility] [place] [address] Ernesto Alfaro MD [address] [phone] 08/02/2024 9:30 AM CDT Office Visit [facility] - General Surgery [address] [place] [phone] Sena Blum MD [address] [facility] [address] [place] [phone] 12/05/2024 10:00 AM CDT Appointment [facility] [address] [place] [address] Kelsey Renner MD [facility] [place] [phone] 02/11/2025 8:00 AM [facility] Appointment [address] [phone] documented as of this encounter Visit Diagnoses Not on filedocumented in this encounter Additional Health Concerns Infection Onset Date Last Indicated Resolved Time COVID-19 Under Investigation 12/17/2022 12/17/2022 12/17/2022 10:56 PM CDT MRSA Comment:06/07/23 Foot wound resolved, ES 03/08/2023 03/08/2023 06/07/2023 7:55 AM C DT MRSA Hx 06/07/2023 06/07/2023 CDIFF Under Investigation 11/09/2023 11/09/2023 7:06 AM CDT CDIFF Under Investigation 11/09/2023 11/09/2023 9:14 PM CDT documented as of this encounter Care Teams Custodial Operations Manager Relationship Specialty Start Date End Date Ernesto Alfaro MD [address] [place] [address] PCP - General 01/03/17 documented as of this encounter
--- OUTSIDE RECORDS SUMMARY | 2024-05-01 00:28 | XMS_ITS | Clinical Summary ---
Author Organization [employer] [facility] Address [address] [facility] [address] Care Team Providers Care Counter Molder Name Role Phone Ernesto Alfaro MD Primary Care Provider [phone] Allergies Active Allergy Reactions Criticality Noted Date Comments Aspirin Other (See Comments) 06/02/2021 Nose bleed and vomit Cephalexin Other (See Comments) Low 06/02/2021 Yeast infection Levofloxacin Hives High 06/03/2021 Quinine Sulfate Hives High 06/03/2021 Quinolones Itching Low 06/03/2021 Medications HYDROcodone-gasper taminophen (NORCO) 5-325 mg tabletIndicatio ns:Generalized pain Take 1 Tablet by mouth every 4 hours as needed for Pain, Moderate. Max Daily Amount: 6 Tablets 180 Tablet 2 Active Lactobacillus acidophilus (ACIDOPHILUS ORAL) Take by mouth 2 times daily. Active albuterol sulfate 90 mcg/Actuation inhaler Take 2 Puffs by inhalation every 6 hours as needed for Shortness of Breath. Active atorvastatin (LIPITOR) 10 mg tablet Take 10 mg by mouth daily at bedtime. Active cefePIME (MAXIPIME) 2 gram Recon Soln Inject 2,000 mg by intravenous injection every 12 hours. Active cholecalciferol , Vitamin D3, 125 mcg (5,000 unit) Capsule Take 5,000 Units by mouth daily. Active loratadine (CLARITIN) 10 mg tablet Take 10 mg by mouth daily. Active diltiaZEM (CARDIZEM) 120 mg Tablet Take 120 mg by mouth daily. Extended release Active apixaban (Eliquis) 5 mg tablet Take 5 mg by mouth 2 times daily. Active FLUoxetine (PROzac) 20 mg tablet Take 20 mg by mouth daily. Active folic acid (FOLVITE) 1 mg tablet Take 1 mg by mouth daily. Active gabapentin (NEURONTIN) 300 mg capsule Take 300 mg by mouth 3 times daily. Active glucagon HCL 1 mg/mL Recon Soln 1 mg every 4 hours as needed. Active dextrose (Glucose GeL) 40 % Gel Take 15 Grams by mouth 1 time daily as needed. Active heparin, porcine, pf, (heparin LockFlush,Porci ne,,PF,) 10 unit/mL Syringe Inject 10 Units by intravenous injection every 12 hours. Active insulin glargine (Lantus Solostar U-100 Insulin) 100 unit/mL pen syringe Inject 15 Units by subcutaneous injection daily at bedtime. Active furosemide (LASIX) 40 mg tablet Take 40 mg by mouth daily. Active metoprolol tartrate (LOPRESSOR) 25 mg tablet Take 25 mg by mouth 2 times daily. Active metroNIDAZOLE (FLAGYL) 250 mg tablet Take 500 mg by mouth every 8 hours. Must take with food or milk Active Insulin [place], Disposable, (Novofine 32) 32 gauge x 1/4 Needle by [facility]Non-Drug; Combo Route) route. Active insulin aspart U-100 (NovoLOG Flexpen U-100 Insulin) 100 unit/mL pen syringe Inject 0-6 Units by subcutaneous injection 3 times daily with meals. Active ondansetron (ZOFRAN ODT) 4 mg Tablet, Rapid Dissolve Take 4 mg by mouth every 6 hours as needed for Nausea/Emesis. Dissolve tablet on top of tongue, then swallow with saliva. Active pantoprazole (PROTONIX) 40 mg Tablet, Delayed Release (E.C.) Take 40 mg by mouth daily. Delayed release Active potassium chloride (KLOR-CON) 10 mEq Extended Release tablet Take 10 mEq by mouth daily. Active SODIUM CHLORIDE 0.9 %, FLUSH, INJECTION by Injection route. Active acetaminophen (TYLENOL) 325 mg tablet Take 325 mg by mouth every 4 hours as needed. Active vancomycin (VANCOCIN) 1,250 mg Recon Soln Inject 1,750 mg by intravenous injection daily. Active fluticasone prp-sod.chl,bic arb 50 mcg- 0.9 % kit,spray suspension and spray Administer in each nostril. Active Active Problems Problem Noted Date Diagnosed Date Type 2 diabetes mellitus wit hout complication, with long-term current use of insulin 06/04/2021 Chronic diastolic congestive heart failure 06/04 Paroxysmal atrial fibrillation 06/04/2021 Acute osteomyelitis of right ankle 06/04/2021 Closed trimalleolar fracture of right ankle 05/19 Status post ORIF of fracture of ankle 06/04/2021 Social History Tobacco Use Types Packs/Day Years Used Date Smoking Tobacco: Former Smokeless Tobacco: Never Comments Unknown Sex and Gender Information Value Date Recorded Sex Assigned at Not on file Legal Sex Female 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 Gender Identity Not on file Sexual Orientation Not on file Last Filed Vital Signs Vital Sign Reading Time Taken Comments Blood Pressure 148/67 06/02/2021 11:47 PM CDT Pulse 69 06/02/2021 11:47 PM CDT Temperature 36.7 C (98.1 F) 06/02/2021 11:47 PM CDT Respiratory Rate 18 06/02/2021 11:47 PM CDT Oxygen Saturation 95% 06/02/2021 11:47 PM CDT Inhaled Oxygen Concentration - - Weight 83 kg (183 lb) 06/02/2021 11:47 PM CDT Height 157.5 cm (5' 2 ) 06/02/2021 11:47 PM CDT Body Mass Index 33.47 06/02/2021 11:47 PM CDT Plan of Treatment Health Maintenance Due Date Last Done Comments DIABETES ANNUAL FOOT EXAM 1969 DIABETES ANNUAL RETINAL EXAM 1969 DIABETES MICROALBUMIN ANNUAL SCREEN 1969 LDL CHOLESTEROL ANNUAL 1969 DTAP/TDAP/TD VACCINES (1 - Tdap) 1970 COLORECTAL SCREENING 1996 Colorectal Cancer Screening 1996 FIT-DNA Q 3 years 1996 FIT/FOBT Q 1 year 1996 Flex Sig/CT Colonography Q 5 years 1996 ZOSTER VACCINE (1 of 2) 2001 RSV VACCINE (60+ or ) (1 - Risk 60-74 years 1-dose series) 2011 OSTEOPOROSIS SCREENING 2016 INFLUENZA VACCINE (#1) 2023 3, 11/28/2020, 11/28/2020, Additional history exists DIABETES HBA1C Q 6 MONTHS 05/11/20242023, 05/04/2023, 01/05/2023, Additional history exists BREAST CANCER SCREENING 02/06/2025 02/07/20 24, 07/18/2023, 07/07/2023, Additional history exists PNEUMOCOCCAL VACCINE 65+ YEARS Completed 08/10/2018 , 12/27/2016 Insurance MEDICARE PART A AND B [employer] [place] Care Teams Counter Molder Relationship Specialty Start Date End Date Ernesto Alfaro MD [address] [place] [address] PCP - General Family Practice 06/03/21
[2024-05-01 01:29] LABS: Basophils Percent Auto 0.3 % (0.2-1.2); Hematocrit 40.8 % (37.0-47.0); Immature Granulocyte Absolute 0.02 K/mm3 (0.00-0.031); Immature Granulocyte Percent A 0.5 % (0-0.5); Lymphocytes Absolute Auto 0.66 K/mm3 (0.9-3.2); Lymphocytes Percent Auto 16.5 % (18.3-44.2); Mean Corpuscular HGB Conc 31.9 g/dl (32-36); Mean Corpuscular Hemoglobin 31.3 pg (26-34); Mean Corpuscular Volume 98.3 fl (80-100); Mean Platelet Volume 11.9 fl (7.4-10.4); Monocytes Absolute Auto 0.5 K/mm3 (0.1-0.6); Monocytes Percent Auto 11.5 % (2.6-8.5); Neutrophils Absolute Auto 2.8 K/mm3 (1.3-6.7); Neutrophils Percent Auto 71.2 % (45.5-73.1); Platelet Count Result 127 k/mm3 (150-375); Red Blood Count 4.15 M/mm3 (4.2-5.4); Red Cell Distribution Width 14.6 % (11.5-14.5)
[2024-05-01 01:32] LABS: Lactic Acid Reflex 1.8 mmol/L (0.7-2.0)
[2024-05-01 01:34] LABS: Alanine Aminotransferase 32 U/L (6-35); Albumin Level 3.6 g/dL (3.5-5.1); Alkaline Phosphatase 119 U/L (38-126); Anion Gap 10 mmol/L (4-12); Aspartate Amino Transferase 47 U/L (14-36); Bilirubin,Total 0.5 mg/dL (0.2-1.3); Blood Urea Nitrogen 12 mg/dL (7-17); Calcium 8.6 mg/dL (8.4-10.2); Carbon Dioxide 25 mmol/L (22-30); Chloride 98 mmol/L (98-107); Creatine Kinase 67 U/L (30-135); Estimated CRCL calculation 53 ml/min; Estimated Glomerular Filt Rate > 60; Glucose 223 mg/dL (65-110); Magnesium 1.9 mg/dL (1.6-2.3); Potassium 3.6 mmol/L (3.4-5.0); Sodium 133 mmol/L (137-145)
[2024-05-01 01:42] LABS: NT Pro B Type Natriuretic Pept 1800 pg/mL (19.9-100)
[2024-05-01 01:52] LABS: D Dimer 1.68 ug/mL (<0.48)
[2024-05-01] MEDS: BENZONATATE 100 MG CAPSULE PO (03:01)
[2024-05-01] MEDS: ACETAMINOPHEN 500 MG TABLET 1000 MG PO (03:01)
[2024-05-01] MEDS: SODIUM CHLORIDE 0.9% IV 1,000 ML 999 ML IV CONT ×2 (03:03→07:11)
[2024-05-01] MEDS: guaiFENesin 200 MG/10 ML UDC PO (03:03)
[2024-05-01 04:00] LABS: Add Urine Microscopic? YES; Appearance Urine Clear (Clear); Bacteria Urine None Seen /hpf; Bilirubin Urine Negative (Negative); Blood Urine 1+ (Negative); Color Urine Yellow (Yellow); Glucose Urine UA Negative (Negative); Ketones Urine Negative (Negative); Leukocyte Esterase Ur Negative LEU/UL (Negative); Nitrate Urine Negative (Negative); Non Pathogenic Casts 0-2; Protein Urine Negative (Negative); Specific Grav Ur 1.038 (1.001-1.035); Squamous Epithelial Cell Urine None Seen /hpf (Few); Urobilinogen Urine 0.2 mg/dL (<2.0); WBC Urine 0-5 /hpf (0-3); pH Urine 6.5 (5.0-9.0)
[2024-05-01] MEDS: dilTIAZem HCl INJ 25 MG/5 ML VIAL 10 MG IV PUSH (05:04)
[2024-05-01] MEDS: OSELTAMIVIR PHOSPHATE 30 MG CAPSULE PO ×2 (07:11→20:52)
[2024-05-01] MEDS: dilTIAZem HCL 12 HR 60 MG CAP.12HR 120 MG PO (07:11)
[2024-05-01] MEDS: AZITHROMYCIN 500 MG/NS 250 ML 500 MG/250 ML BAG 250 MG IVPB (07:51)
--- NOTE | 2024-05-01 08:33 | PC.NURSE ---
spoke to pt daughter at this time for an update Gary
[2024-05-01 09:10] LABS: MRSA (PCR) NOT DETECTED (NOT DETECTE)
--- NOTE | 2024-05-01 10:18 | PC.NURSE ---
spoke to pt daughter to bulk clerk her an update at this time per pt request
[2024-05-01 11:29] LABS: Glucose Point of Care 306 mg/dl (65-105)
--- NOTE | 2024-05-01 15:50 | ADMGEN ---
This patient, Otilia Cardenas, was admitted to IMU Room 203- 1020. Patient/family oriented to hospital policies and general routines including ID bracelet, bed and alarms, visiting hours, pain management, procedures, bathroom and other care routines, personal items, smoking policy, room service/diet, and visiting hours. Information on how to activate the Rapid Response Team has been discussed. Patient/Family are encouraged to report perceived risks to care and to ask questions if they do not understand what they are told or what they should do.
[2024-05-01 16:17] LABS: Glucose Point of Care 323 mg/dl (65-105)
[2024-05-01] MEDS: oxyCODONE HCL (*CRX) 5 MG TAB IR 10 MG PO ×2 (18:53→23:47)
[2024-05-01 20:19] LABS: Basophils Percent Auto 0.2 % (0.2-1.2); Hematocrit 37.7 % (37.0-47.0); Hemoglobin 11.7 g/dL (12.0-15.0); Immature Granulocyte Absolute 0.02 K/mm3 (0.00-0.031); Immature Granulocyte Percent A 0.5 % (0-0.5); Lymphocytes Absolute Auto 0.57 K/mm3 (0.9-3.2); Lymphocytes Percent Auto 13.7 % (18.3-44.2); Mean Corpuscular Hemoglobin 31.2 pg (26-34); Mean Corpuscular Volume 100.5 fl (80-100); Mean Platelet Volume 11.1 fl (7.4-10.4); Monocytes Absolute Auto 0.4 K/mm3 (0.1-0.6); Monocytes Percent Auto 9.4 % (2.6-8.5); Neutrophils Absolute Auto 3.2 K/mm3 (1.3-6.7); Neutrophils Percent Auto 76.2 % (45.5-73.1); Platelet Count Result 127 k/mm3 (150-375); Red Blood Count 3.75 M/mm3 (4.2-5.4); Red Cell Distribution Width 14.6 % (11.5-14.5); White Blood Count 4.2 K/mm3 (4.5-10.0)
--- NOTE | 2024-05-01 20:19 | PM.IMHP ---
H&P: HPI History of Present Illness Date/Time: 05/01/24 20:19 Chief Complaint: Weakness Narrative: This is a pleasant 73-year-old female with a past medical history paroxysmal atrial fibrillation, chronic anemia, active tobacco abuse, COPD, insulin-dependent type 2 diabetes mellitus, neuropathy, renal disease, anxiety, depression, hypertension, hyperlipidemia. The patient presents to [place] [facility] on 04/30/2024 with complaint of shakiness weakness and unsteady gait for approximately 1 week. She reports being diagnosed with influenza a since about a week prior but was not prescribed any medications. She lives with her daughter who is also been sick in the patient reports subjective fever. She did get her flu shot this season. She reports having quit smoking about 3 weeks prior to admission. ER evaluation demonstrated a ill-appearing female. She requires 3 L nasal cannula. She had AFib with RVR. White blood cell count 4.0. MRSA PCR negative. Chest CTA demonstrated left upper lobe and right middle lobe consolidation. She was given ceftriaxone azithromycin diltiazem and Tamiflu and 1 L normal saline bolus. Review of Systems Review of Systems: All systems reviewed & are unremarkable except as noted in HPI and below (HPI) [facility] Past Medical History Medical History Anxiety Chronic anemia Chronic obstructive pulmonary disease Depression Hearing loss Hyperlipidemia Hypertension Insulin dependent type 2 diabetes mellitus MRSA infection MRSA infection of the right hand in October 2013. 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 Amputation of digit of right hand Secondary to osteomyelitis. History of appendectomy History of carpal tunnel release History of section History of exploratory laparotomy History of hysterectomy History of open reduction and internal fixation (ORIF) procedure (03/2021) Repair of right ankle fracture per Dr. Cristo Lewis at [facility] in [place]. Status post excision of lipoma Family History Family History (Updated 05/01/24 @ 12:53 by Jeane Alva RN) Father Diabetes mellitus Family history of malignant neoplasm Colon cancer Mother Family history of malignant neoplasm Social History Social History (Updated 05/01/24 @ 09:58 by Charline Garcia MD) Social History: Surrogate medical decision maker: Kavitha Sterling, daughter. Code status: Full code. Smoking packs per day: 1 Smoking cigarettes per day: 20.0 Years smoked: 30 Smoking pack-years: 30.00 Smoking status: Former smoker Tobacco type: cigarettes Second hand tobacco smoke exposure: Yes Smoking end date: 03/21/19 Additional smoking assessment comments: Up to 2 PPD at one point (for 50 years, 100 pack years) . Still vapes. Alcohol intake: never Substance use: never Substance use type: does not use Do You Feel Safe in your Home?: Yes Lack of Transportation: YES Lack of Food: Never True Current Housing: I Have Housing Concerned About Future Housing: No Difficulty Paying Gas/Electric Bills: No Difficulty Paying for Meds: No Currently Unemployed: No Education: High School Diploma/GED Difficulty w/ Childcare or Family Care: No Living arrangements: with family Additional living arrangements comments: The patient lives with her daughter Kavitha in [place]. Spiritual care concerns: No Meds Home Medications and Allergies Home Medications ?Medication ?Instructions ?Recorded ?Confirmed ?Type albuterol sulfate 90 mcg/actuation 2 inh inhalation PRN PRN SOB 07/14/20 05/01/24 History aerosol inhaler gabapentin 300 mg capsule 300 mg PO TID 07/14/20 05/01/24 History insulin glargine 100 unit/mL (3 18 unit subcut BID 07/14/20 05/01/24 History mL) subcutaneous pen (Lantus Solostar U-100 Insulin) diltiazem HCl 120 mg 120 mg PO DAILY 12/07/21 05/01/24 History capsule,extended release 24 hr, controlled (DILT-XR) clindamycin HCl 150 mg capsule 150 mg PO TID 05/01/24 05/01/24 History insulin aspart U-100 100 unit/mL 1 sliding scale dose subcut 05/01/24 05/01/24 History (3 mL) subcutaneous pen TIDWMEAL mometasone 0.1 % topical cream applic topical DAILY PRN itching 05/01/24 History nitrofurantoin 100 mg PO TID 05/01/24 05/01/24 History monohydrate/macrocrystals 100 mg capsule oxycodone 10 mg tablet 10 mg PO Q4H 05/01/24 05/01/24 History Allergies Allergy/AdvReac Type Severity Reaction Status Date / Time eucalyptus Allergy Intermediate BLISTERS Verified 12/02/23 15:53 quinine Allergy Intermediate HIVES Verified 12/02/23 15:53 cephalexin Allergy Unknown Itching Verified 12/02/23 15:53 levofloxacin Allergy Unknown Unknown Verified 12/02/23 15:53 menthol Allergy Unknown BLISTERS Verified 12/02/23 15:53 Quinolones Allergy Unknown Verified 12/02/23 15:53 aspirin AdvReac Unknown Vomiting Verified 12/02/23 15:53 Vital Signs Vital Signs - 24 hr 04/30/24 23:01 04/30/24 23:30 05/01/24 00:15 Temperature 101.9 F H Pulse Rate 148 H 152 H 143 H Respiratory Rate 18 23 H 19 Blood Pressure 123/59 L 119/81 119/73 Pulse Oximetry 90 92 90 Oxygen Delivery Room Air Oxygen Flow Rate 05/01/24 00:45 05/01/24 02:00 05/01/24 03:15 Temperature Pulse Rate 147 H 127 H 119 H Respiratory Rate 23 H 20 20 Blood Pressure 118/65 102/58 L 131/74 Pulse Oximetry 93 91 93 Oxygen Delivery Oxygen Flow Rate 05/01/24 04:31 05/01/24 05:05 05/01/24 05:30 Temperature 98.8 F Pulse Rate 123 H Respiratory Rate 14 Blood Pressure 101/65 Pulse Oximetry 94 Oxygen Delivery Oxygen Flow Rate 2 05/01/24 07:30 05/01/24 07:31 05/01/24 08:36 Temperature Pulse Rate 116 H 133 H Respiratory Rate 22 H 22 H Blood Pressure 112/70 111/67 Pulse Oximetry 93 94 91 Oxygen Delivery Nasal Cannula Oxygen Flow Rate 3 05/01/24 09:01 05/01/24 10:02 05/01/24 10:50 Temperature 97.7 F 98.3 F Pulse Rate 119 H 110 H 84 Respiratory Rate 26 H 17 20 Blood Pressure 120/77 103/59 L 111/57 L Pulse Oximetry 94 92 Oxygen Delivery Oxygen Flow Rate 05/01/24 11:35 05/01/24 12:00 05/01/24 14:00 Temperature 98.0 F Pulse Rate 94 129 H 86 Respiratory Rate 20 Blood Pressure 113/63 Pulse Oximetry 91 Oxygen Delivery Oxygen Flow Rate 05/01/24 16:00 05/01/24 16:48 02/11/25 18:00 Temperature 97.9 F Pulse Rate 63 73 77 Respiratory Rate 20 Blood Pressure 142/78 H Pulse Oximetry 99 Oxygen Delivery Oxygen Flow Rate 05/01/24 20:00 Temperature 97.8 F Pulse Rate 72 Respiratory Rate 18 Blood Pressure 123/97 H Pulse Oximetry 91 Oxygen Delivery Oxygen Flow Rate Exam Const: General: comfortable and no acute distress Eyes: Pupils: Equal, round and reactive pupils present Neck: Neck: supple Resp: Effort & Inspection: normal respiratory effort Auscultation: clear to auscultation bilaterally Cardio: Rate: regular rate Rhythm: regular rhythm Heart sounds: no gallops, no murmurs and no rubs GI: GI Palp: Yes Soft to palpation and No Tenderness to palpation present (GI) Neuro: Speech: normal speech Motor exam (neuro): 5/5 motor strength present throughout Sensory Exam: normal sensation Extrem: General: no edema H&P: Results Labs Labs: Short CBC 05/01/24 Range/Units 00:14 WBC 4.0 L (4.5-10.0) K/mm3 Hgb 13.0 D (12.0-15.0) g/dL Hct 40.8 (37.0-47.0) % Plt Count 127 L (150-375) k/mm3 BMP 05/01/24 00:14 Sodium 133 L Potassium 3.6 Chloride 98 Carbon Dioxide 25 BUN 12 Creatinine 0.78 Glucose 223 H Calcium 8.6 Cardiac Enzymes 05/01/24 Range/Units 00:14 Total Creatine Kinase 67 (30-135) U/L Liver Function 05/01/24 Range/Units 00:14 Total Bilirubin 0.5 (0.2-1.3) mg/dL AST 47 H (14-36) U/L ALT 32 (6-35) U/L Alkaline Phosphatase 119 (38-126) U/L Albumin 3.6 (3.5-5.1) g/dL Urine 05/01/24 Range/Units 03:52 Urine Color Yellow (Yellow) Urine Appearance Clear (Clear) Urine pH 6.5 (5.0-9.0) Ur Specific [place] 1.038 H (1.001-1.035) Urine Protein Negative (Negative) mg/dL Urine Glucose (UA) Negative (Negative) mg/dL Assessment and Plan Assessment and plan (1) Hypertension: Code(s): I10 - Essential (primary) hypertension Status: Acute (2) Paroxysmal atrial fibrillation: Code(s): I48.0 - Paroxysmal atrial fibrillation Status: Acute (3) Thrombocytopenia: Code(s): D69.6 - Thrombocytopenia, unspecified Status: Acute (4) Insulin dependent type 2 diabetes mellitus: Code(s): E11.9 - Type 2 diabetes mellitus without complications; 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 The patient presents to [place] ER on 04/30/2024 with complaint of shakiness weakness and unsteady gait for approximately 1 week. She reports being diagnosed with influenza a since about a week prior but was not prescribed any medications. She lives with her daughter who is also been sick in the patient reports subjective fever. She did get her flu shot this season. She reports having quit smoking about 3 weeks prior to admission. ER evaluation demonstrated a ill-appearing female. She requires 3 L nasal cannula. She had AFib with RVR. White blood cell count 4.0. MRSA PCR negative. Chest CTA demonstrated left upper lobe and right middle lobe consolidation. She was given ceftriaxone azithromycin diltiazem and Tamiflu and 1 L normal saline bolus. ----- Obesity Hypertension AFib with RVR Pancytopenia Tobacco abuse COPD Insulin-dependent type 2 diabetes mellitus Elevated blood sugars due to diabetes mellitus Influenza a Acute hypoxic respiratory failure Community-acquired pneumonia, suspected bacterial Elevated AST ----- She is currently on 3 L nasal cannula. Wean as tolerated and per the protocol. This is likely due to influenza a combined with suspected bacterial pneumonia complicated by COPD and active tobacco abuse. Tobacco abuse cessation counseling provided. Tamiflu 75 mg p.o. x1 given in the ER. Continue with 30 mg p.o. b.i.d. considering her GFR. Continue ceftriaxone and azithromycin. AFib with RVR has now resolved after treatment in the ER which included diltiazem 10 mg IV x1 and diltiazem HCL 120 mg p.o. x1. She is currently normal sinus rhythm, Continue telemetry and continue her [employer] diltiazem 120 mg p.o. q.day. the patient is not on any blood thinners and she is refuses to take it. We have discussed the risks versus benefits. Monitor pancytopenia this could be due to viral and bacterial illness. She still has hyperglycemia. Continue the sliding scale and I have restarted her home insulin. CTA chest demonstrates diffusely increased density the left breast with extensive left breast skin thickening. Advised the patient for further evaluation but she does not want to pursue that at this time. ----- Saline lock IV. Heart healthy diabetic diet. Accu-Cheks a.c. HS PTOT Continue telemetry Patient wishes to be full code Lovenox 40 mg subQ q.day Hospitalist MIPS Advance Care Plan I have confirmed that the patient's Advanced Care Plan is present, code status is documented, or surrogate decision maker is listed in patient medical record.: Yes Medication Reconciliation I have utilized all available resources to obtain, update and review the patients current medications (includes all prescriptions, OTC, herbals, cannabis, and nutritional supplements).: Yes
[2024-05-01 20:41] LABS: Glucose Point of Care 315 mg/dl (65-105)
[2024-05-01 20:41] LABS: Alanine Aminotransferase 31 U/L (6-35); Albumin Level 2.8 g/dL (3.5-5.1); Alkaline Phosphatase 95 U/L (38-126); Anion Gap 9 mmol/L (4-12); Aspartate Amino Transferase 54 U/L (14-36); Bilirubin,Total 0.4 mg/dL (0.2-1.3); Blood Urea Nitrogen 12 mg/dL (7-17); Calcium 7.9 mg/dL (8.4-10.2); Carbon Dioxide 20 mmol/L (22-30); Chloride 102 mmol/L (98-107); Estimated CRCL calculation 52 ml/min; Estimated Glomerular Filt Rate > 60; Glucose 347 mg/dL (65-110); Magnesium 1.9 mg/dL (1.6-2.3); Potassium 3.9 mmol/L (3.4-5.0); Sodium 131 mmol/L (137-145)
[2024-05-01] MEDS: GABAPENTIN 300 MG CAPSULE PO (20:51)
[2024-05-01] MEDS: INSULIN GLARGINE (*BKC) 100 UNITS/ML 18 UNITS SUB-Q (20:53)
[2024-05-01] MEDS: ENOXAPARIN 40 MG/0.4 ML SYRINGE SUB-Q (20:53)
[2024-05-01] MEDS: INSULIN ASPART (*BKC) 100 UNITS/ML SUB-Q (20:54)
[2024-05-02] VITALS (10 sets, daily range): BP systolic 113–144; BP diastolic 44–57; PULSE 58–74; RESP 14–20; TEMP 36.3–37.7; O2SAT 93–97
[2024-05-02] MEDS: oxyCODONE HCL (*CRX) 5 MG TAB IR 10 MG PO ×4 (03:59→20:24)
[2024-05-02 05:51] LABS: Basophils Percent Auto 0.3 % (0.2-1.2); Eosinophils Percent Auto 0.3 % (0-4.4); Hematocrit 35.3 % (37.0-47.0); Hemoglobin 11.1 g/dL (12.0-15.0); Immature Granulocyte Absolute 0.01 K/mm3 (0.00-0.031); Immature Granulocyte Percent A 0.3 % (0-0.5); Immature Platelet Fraction Pct 7.9 % (0.9-11.2); Lymphocytes Absolute Auto 0.89 K/mm3 (0.9-3.2); Lymphocytes Percent Auto 26.6 % (18.3-44.2); Mean Corpuscular HGB Conc 31.4 g/dl (32-36); Mean Corpuscular Hemoglobin 30.8 pg (26-34); Mean Corpuscular Volume 98.1 fl (80-100); Mean Platelet Volume 12.3 fl (7.4-10.4); Monocytes Absolute Auto 0.4 K/mm3 (0.1-0.6); Monocytes Percent Auto 13.2 % (2.6-8.5); Neutrophils Percent Auto 59.3 % (45.5-73.1); Platelet Count Result 103 k/mm3 (150-375); Red Cell Distribution Width 14.4 % (11.5-14.5); White Blood Count 3.3 K/mm3 (4.5-10.0)
[2024-05-02 06:08] LABS: Anion Gap 6 mmol/L (4-12); Blood Urea Nitrogen 10 mg/dL (7-17); Calcium 8.3 mg/dL (8.4-10.2); Carbon Dioxide 26 mmol/L (22-30); Chloride 103 mmol/L (98-107); Estimated CRCL calculation 53 ml/min; Estimated Glomerular Filt Rate > 60; Glucose 100 mg/dL (65-110); Magnesium 1.9 mg/dL (1.6-2.3); Potassium 4.3 mmol/L (3.4-5.0); Sodium 135 mmol/L (137-145)
[2024-05-02 06:27] LABS: Atypical Lymphocytes Present; Platelet Estimate Slightly Decreased (Adequate); Schistocytes None Seen
[2024-05-02] MEDS: AZITHROMYCIN 500 MG/NS 250 ML 500 MG/250 ML BAG 250 MG IVPB (06:51)
[2024-05-02 08:06] LABS: Glucose Point of Care 93 mg/dl (65-105)
[2024-05-02] MEDS: OSELTAMIVIR PHOSPHATE 30 MG CAPSULE PO ×2 (09:14→20:24)
[2024-05-02] MEDS: dilTIAZem HCL CD 120 MG CAP.24HR PO (09:14)
[2024-05-02] MEDS: GABAPENTIN 300 MG CAPSULE PO ×3 (09:14→17:14)
[2024-05-02] MEDS: ENOXAPARIN 40 MG/0.4 ML SYRINGE SUB-Q (09:19)
[2024-05-02 11:43] LABS: Glucose Point of Care 87 mg/dl (65-105)
--- NOTE | 2024-05-02 14:04 | PM.IMPN ---
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 The patient presents to [place] [facility] on 04/30/2024 with complaint of shakiness weakness and unsteady gait for approximately 1 week. She reports being diagnosed with influenza a since about a week prior but was not prescribed any medications. She lives with her daughter who is also been sick in the patient reports subjective fever. She did get her flu shot this season. She reports having quit smoking about 3 weeks prior to admission. ER evaluation demonstrated a ill-appearing female. She requires 3 L nasal cannula. She had AFib with RVR. White blood cell count 4.0. MRSA PCR negative. Chest CTA demonstrated left upper lobe and right middle lobe consolidation. She was given ceftriaxone azithromycin diltiazem and Tamiflu and 1 L normal saline bolus. ----- Obesity Hypertension AFib with RVR Pancytopenia Tobacco abuse COPD Insulin-dependent type 2 diabetes mellitus Elevated blood sugars due to diabetes mellitus Influenza a Acute hypoxic respiratory failure Community-acquired pneumonia, suspected bacterial Elevated AST ----- She is currently on 3 L nasal cannula. Wean as tolerated and per the protocol. This is likely due to influenza a combined with suspected bacterial pneumonia complicated by COPD and active tobacco abuse. Tobacco abuse cessation counseling provided. Tamiflu 75 mg p.o. x1 given in the ER. Continue with 30 mg p.o. b.i.d. considering her GFR. Continue ceftriaxone and azithromycin. AFib with RVR has now resolved after treatment in the ER which included diltiazem 10 mg IV x1 and diltiazem HCL 120 mg p.o. x1. 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 q.day. the patient is not on any blood thinners and she is refuses to take it. We have discussed the risks versus benefits. Monitor pancytopenia this could be due to viral and bacterial illness. She still has hyperglycemia. Continue the sliding scale and I have restarted her home insulin. CTA chest demonstrates diffusely increased density the left breast with extensive left breast skin thickening. Advised the patient for further evaluation but she does not want to pursue that at this time. 05/02/2024: Patient blood culture shows Gram-positive cocci clusters. Vancomycin is added to her therapeutic regimen. If the blood culture results Gram-positive cocci coagulase negative the antibiotics will be deescalated. Currently patient is been admitted for flu with superimposed bacterial infection. Patient is currently on ceftriaxone and azithromycin and Tamiflu. ----- Saline lock IV. Heart healthy diabetic diet. Accu-Cheks a.c. HS PTOT Continue telemetry Patient wishes to be full code Lovenox 40 mg subQ q.day Subjective Date/time seen: 05/02/24 14:04 Interval history: Patient blood culture shows Gram-positive cocci clusters. Vancomycin is added to her therapeutic regimen. If the blood culture results Gram-positive cocci coagulase negative the antibiotics will be deescalated. Currently patient is been admitted for flu with superimposed bacterial infection. Patient is currently on ceftriaxone and azithromycin and Tamiflu. Review of Systems Review of Systems: All systems reviewed & are unremarkable except as noted in HPI and below (HPI) Exam Const: General: comfortable and no acute distress Eyes: Pupils: Equal, round and reactive pupils present Neck: Neck: supple Resp: Effort & Inspection: normal respiratory effort Auscultation: clear to auscultation bilaterally Cardio: Rate: regular rate Rhythm: regular rhythm Heart sounds: no gallops, no murmurs and no rubs Neuro: Cranial nerves: Yes Equal, round and reactive pupils present Speech: normal speech Motor exam (neuro): 5/5 motor strength present throughout Sensory Exam: normal sensation Extrem: General: no edema Objective Data Vital Signs Vital Signs: Vital Signs - 24 hr 05/01/24 16:00 05/01/24 16:48 05/01/24 18:00 Temperature 97.9 F Pulse Rate 63 73 77 Respiratory Rate 20 Blood Pressure 142/78 H Pulse Oximetry 99 Oxygen Delivery Oxygen Flow Rate 05/01/24 20:00 05/01/24 20:00 05/01/24 20:00 Temperature 97.8 F Pulse Rate 72 75 Respiratory Rate 18 Blood Pressure 123/97 H Pulse Oximetry 91 91 Oxygen Delivery Nasal Cannula Oxygen Flow Rate 3 05/01/24 23:50 05/02/24 00:00 05/02/24 03:40 Temperature 99.9 F H 99.8 F H Pulse Rate 74 70 68 Respiratory Rate 18 18 Blood Pressure 129/55 L 115/54 L Pulse Oximetry 91 93 Oxygen Delivery Oxygen Flow Rate 05/02/24 04:00 05/02/24 08:00 05/02/24 08:25 Temperature 98.1 F Pulse Rate 67 66 67 Respiratory Rate 20 Blood Pressure 113/57 L Pulse Oximetry 93 Oxygen Delivery Oxygen Flow Rate 05/02/24 12:16 05/02/24 12:55 05/02/24 13:10 Temperature 99.0 F Pulse Rate 74 Respiratory Rate 20 Blood Pressure 118/57 L Pulse Oximetry 93 Oxygen Delivery Nasal Cannula Nasal Cannula Oxygen Flow Rate 2 3 Intake/Output Intake/Output: Intake & Output 04/29/24 04/30/24 05/01/24 05/02/24 23:59 23:59 23:59 23:59 Intake Total 4280 50 Output Total 600 200 Balance 3680 -150 Meds/Results Medications: Active Medications Generic Name Dose Route Start Last Admin Trade Name Freq PRN Reason Stop Dose Admin Acetaminophen 650 mg 05/01/24 07:08 Acetaminophen 325 Mg Tablet PO Q4H PRN Mild Pain (1-3) or Fever Dextrose 12.5 gm 05/01/24 18:45 Dextrose 50% 25 Gm/50 Ml Syringe IV PUSH PRN PRN Hypoglycemia Protocol Diltiazem HCl 120 mg 05/02/24 09:00 05/02/24 09:14 Diltiazem Hcl Cd 120 Mg Cap.24hr PO 120 mg QAM TYREL Administration Enoxaparin Sodium 40 mg 05/01/24 20:35 05/02/24 09:19 Enoxaparin 40 Mg/0.4 Ml Syringe SUB-Q 40 mg DAILY TYREL Administration Gabapentin 300 mg 05/01/24 19:55 05/02/24 12:50 Gabapentin 300 Mg Capsule PO 300 mg TID TYREL Administration Glucagon 1 mg 05/01/24 18:45 Glucagon For Inj 1 Mg Vial IM PRN PRN Hypoglycemia Protocol Glucose 15 gm 05/01/24 18:45 Glucose Oral Gel 15 Gm Of Glucse In 37.5 Gm Tube PO PRN PRN Hypoglycemia Protocol Dextrose 1,000 mls @ 100 mls/hr 05/01/24 18:45 Dextrose 5% 1,000 Ml IVPB PRN PRN Hypoglycemia Protocol Azithromycin 500 mg in 250 mls @ 250 mls/hr 05/02/24 07:00 05/02/24 06:51 Zithromax IVPB 250 mls/hr Q24H TYREL Administration Ceftriaxone Sodium 1 gm in 50 mls @ 100 mls/hr 05/02/24 07:00 05/02/24 06:39 Rocephin 1 Gm/Ns 50 Ml IVPB Infused Q24H TYREL Infusion Vancomycin HCl 1,750 mg in 500 mls @ 250 mls/hr 05/02/24 15:00 Vancomycin 1,750 Mg/Ns 500 Ml IVPB 05/02/24 16:59 ONCE ONE Insulin Aspart 3 - 6 units 05/02/24 08:00 05/02/24 11:54 Insulin Aspart (*Bkc) 100 Units/Ml SUB-Q Not Given TIDWM [facility] Protocol Insulin Aspart 1 - 3 units 05/01/24 21:00 05/01/24 20:54 Insulin Aspart (*Bkc) 100 Units/Ml SUB-Q 2 units HS [facility] Administration Protocol Insulin Glargine 18 units 05/01/24 20:25 05/02/24 11:54 Insulin Glargine (*Bkc) 100 Units/Ml SUB-Q Not Given BID [facility] Ondansetron HCl 4 mg 05/01/24 07:08 Ondansetron Inj 4 Mg/2 Ml Vial IV PUSH Q4H PRN Nausea Oseltamivir Phosphate 30 mg 05/01/24 21:00 05/02/24 09:14 Oseltamivir Phosphate 30 Mg Capsule PO 05/06/24 20:59 30 mg Q12HR TYREL Administration Oxycodone HCl 10 mg 05/01/24 20:00 05/02/24 12:50 Oxycodone Hcl (*Crx) 5 Mg Tab Ir PO 10 mg Q4HRT [facility] Administration Vancomycin HCl 1 each 05/02/24 13:40 First Dose Sent IVPB PER PROTOCOL [facility] Radiology Results: ITS Impressions Chest CTA 05/01/24 05:40 Impression: Diffusely increased density of the left breast with extensive left breast skin thickening. Appearance raises the possibility of inflammatory breast carcinoma. Asymmetric fluid overload would be a potential alternative consideration. Physical exam and possible mammographic workup recommended, if clinically indicated and not recently performed. There is airspace consolidation the peripheral left upper lobe and right middle lobe, which could reflect areas of atelectasis versus pneumonia. Correlate clinically. Peripheral airspace disease in the left upper lobe, suggestive of possible postradiation change versus additional pneumonia. Chest X-Ray 05/01/24 06:11 Impression: Patchy left lung airspace disease, as above, suspicious for pneumonia. Probable mild central congestive changes. Labs Labs: Laboratory Results - last 24 hr 05/01/24 05/01/24 05/01/24 15:39 20:13 20:39 WBC 4.2 L RBC 3.75 L Hgb 11.7 L Hct 37.7 MCV 100.5 H MCH 31.2 MCHC 31.0 L RDW 14.6 H Plt Count 127 L MPV 11.1 H Immature Gran % (Auto) 0.5 Neut % (Auto) 76.2 H Lymph % (Auto) 13.7 L [place] % (Auto) 9.4 H Eos % (Auto) 0.0 Baso % (Auto) 0.2 Lymph # (Auto) 0.57 L [place] # (Auto) 0.4 Eos # (Auto) 0.0 Baso # (Auto) 0.0 Abs Immat Gran (auto) 0.02 Absolute Neuts (auto) 3.2 Absolute Nucleated RBC 0.000 Nucleated RBC % 0.0 Atypical Lymphocytes Platelet Estimate % Immature Plt Fraction Schistocytes Sodium 131 L Potassium 3.9 Chloride 102 Carbon Dioxide 20 L Anion Gap 9 BUN 12 Creatinine 0.79 Estim Creat Clear Calc 52 Estimated GFR > 60 Glucose 347 H POC Capillary Glucose 323 H 315 H Calcium 7.9 L Magnesium 1.9 Total Bilirubin 0.4 AST 54 H ALT 31 Alkaline Phosphatase 95 Total Protein 6.0 L Albumin 2.8 L 05/02/24 05/02/24 05/02/24 05:15 07:48 11:36 WBC 3.3 L RBC 3.60 L Hgb 11.1 L Hct 35.3 L MCV 98.1 MCH 30.8 MCHC 31.4 L RDW 14.4 Plt Count 103 L MPV 12.3 H Immature Gran % (Auto) 0.3 Neut % (Auto) 59.3 Lymph % (Auto) 26.6 [place] % (Auto) 13.2 H Eos % (Auto) 0.3 Baso % (Auto) 0.3 Lymph # (Auto) 0.89 L [place] # (Auto) 0.4 Eos # (Auto) 0.0 Baso # (Auto) 0.0 Abs Immat Gran (auto) 0.01 Absolute Neuts (auto) 2.0 Absolute Nucleated RBC 0.000 Nucleated RBC % 0.0 Atypical Lymphocytes Present Platelet Estimate Slightly decreased % Immature Plt Fraction 7.9 Schistocytes None seen Sodium 135 L Potassium 4.3 Chloride 103 Carbon Dioxide 26 Anion Gap 6 BUN 10 Creatinine 0.78 Estim Creat Clear Calc 53 Estimated GFR > 60 Glucose 100 POC Capillary Glucose 93 87 Calcium 8.3 L Magnesium 1.9 Total Bilirubin AST ALT Alkaline Phosphatase Total Protein Albumin Hospitalist MIPS Advance Care Plan I have confirmed that the patient's Advanced Care Plan is present, code status is documented, or surrogate decision maker is listed in patient medical record.: Yes Medication Reconciliation I have utilized all available resources to obtain, update and review the patients current medications (includes all prescriptions, OTC, herbals, cannabis, and nutritional supplements).: Yes
[2024-05-02] MEDS: VANCOMYCIN 1,750 MG/NS 500 ML 1,750 MG/500 ML BAG 250 MG IVPB (16:12)
[2024-05-02 17:00] LABS: Glucose Point of Care 166 mg/dl (65-105)
[2024-05-02] MEDS: INSULIN GLARGINE (*BKC) 100 UNITS/ML 18 UNITS SUB-Q (17:12)
[2024-05-02] MEDS: INSULIN ASPART (*BKC) 100 UNITS/ML SUB-Q (20:20)
[2024-05-02 21:00] LABS: Glucose Point of Care 328 mg/dl (65-105)
[2024-05-03] VITALS (12 sets, daily range): BP systolic 110–136; BP diastolic 42–58; PULSE 58–75; RESP 16–20; TEMP 36.3–37.1; O2SAT 93–97
[2024-05-03] MEDS: oxyCODONE HCL (*CRX) 5 MG TAB IR 10 MG PO ×6 (00:22→20:27)
[2024-05-03] MEDS: AZITHROMYCIN 500 MG/NS 250 ML 500 MG/250 ML BAG 250 MG IVPB (06:01)
--- NOTE | 2024-05-03 08:02 | P.PNIM_ITS ---
Progress Note: A&P Assessment and Plan (1) Hypertension: Code(s): I10 - Essential (primary) hypertension Status: Acute (2) Paroxysmal atrial fibrillation: Code(s): I48.0 - Paroxysmal atrial fibrillation Status: Acute (3) Thrombocytopenia: Code(s): D69.6 - Thrombocytopenia, unspecified Status: Acute (4) Insulin dependent type 2 diabetes mellitus: Code(s): E11.9 - Type 2 diabetes mellitus without complications; Z79.4 - superintendent [employer] (current) use of insulin Status: Acute (5) Hypoxia: Code(s): R09.02 - Hypoxemia Status: Acute (6) Pneumonia: Code(s): J18.9 - Pneumonia, unspecified organism Status: Acute Plan This is a pleasant 73-year-old female with a past medical history paroxysmal atrial fibrillation, chronic anemia, active tobacco abuse, COPD, insulin-dependent type 2 diabetes mellitus, neuropathy, Raynaud's disease, anxiety, depression, hypertension, hyperlipidemia. The patient presents to [place] ER on 04/30/2024 with complaint of shakiness weakness and unsteady gait for approximately 1 week. She reports being diagnosed with influenza a since about a week prior but was not prescribed any medications. She lives with her daughter who is also been sick in the patient reports subjective fever. She did get her flu shot this season. She reports having quit smoking about 3 weeks prior to admission. ER evaluation demonstrated a ill-appearing female. She requires 3 L nasal cannula. She had AFib with RVR. White blood cell count 4.0. MRSA PCR negative. Chest CTA demonstrated left upper lobe and right middle lobe consolidation. She was given ceftriaxone azithromycin diltiazem and Tamiflu and 1 L normal saline bolus. ----- Obesity Hypertension AFib with RVR Pancytopenia Tobacco abuse COPD Insulin-dependent type 2 diabetes mellitus Elevated blood sugars due to diabetes mellitus Influenza a Acute hypoxic respiratory failure Community-acquired pneumonia, suspected bacterial Elevated AST ----- She is currently on 3 L nasal cannula. Wean as tolerated and per the protocol. This is likely due to influenza a combined with suspected bacterial pneumonia complicated by COPD and active tobacco abuse. Tobacco abuse cessation counseling provided. Tamiflu 75 mg p.o. x1 given in the ER. Continue with 30 mg p.o. b.i.d. considering her GFR. Continue ceftriaxone and azithromycin. AFib with RVR has now resolved after treatment in the ER which included diltiazem 10 mg IV x1 and diltiazem HCL 120 mg p.o. x1. 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 q.day. the patient is not on any blood thinners and she is refuses to take it. We have discussed the risks versus benefits. Monitor pancytopenia this could be due to viral and bacterial illness. She still has hyperglycemia. Continue the sliding scale and I have restarted her home insulin. CTA chest demonstrates diffusely increased density the left breast with extensive left breast skin thickening. Advised the patient for further evaluation but she does not want to pursue that at this time. 05/02/2024: Patient blood culture shows Gram-positive cocci clusters. Vancomycin is added to her therapeutic regimen. If the blood culture results Gram-positive cocci coagulase negative the antibiotics will be deescalated. Currently patient is been admitted for flu with superimposed bacterial infection. Patient is currently on ceftriaxone and azithromycin and Tamiflu. ----- Bacteremia Contaminat( Staphy.Capitis) Blood culture from 05/01 gram-positive cocci Less suspicion for endocarditis Monitor leukocytosis Repeat blood culture DC vancomycin PNA On ceftriaxone and azithromycin Influenza A positive Monitor vitals Monitor culture On Tamiflu Saline lock IV. Heart healthy diabetic diet. Accu-Cheks a.c. HS PTOT Continue telemetry Patient wishes to be full code Lovenox 40 mg subQ q.day Subjective Date/time seen: 05/03/24 08:02 Interval history: As discussed yesterday patient is currently on vancomycin it will be deescalated if the blood culture shows coagulase-negative Gram-positive cocci. Patient is currently saturating 93% at 3 L. her Lantus has been increased from 18 units to 20 units b.i.d. Patient is nauseous and add zofran.Abdominal Xray shows no bowel obstruction. BC resulted staph.capitis, so discontinuing Vancomycin Review of Systems Review of Systems: All systems reviewed & are unremarkable except as noted in HPI and below (HPI) Exam Const: General: comfortable and no acute distress Eyes: Pupils: Equal, round and reactive pupils present Neck: Neck: supple Resp: Effort & Inspection: normal respiratory effort Auscultation: clear to auscultation bilaterally Cardio: Rate: regular rate Rhythm: regular rhythm Heart sounds: no gallops, no murmurs and no rubs Neuro: Cranial nerves: Yes Equal, round and reactive pupils present Speech: normal speech Motor exam (neuro): 5/5 motor strength present throughout Sensory Exam: normal sensation Extrem: General: no edema Objective Data Vital Signs Vital Signs: Vital Signs - 24 hr 05/02/24 08:25 05/02/24 12:16 05/02/24 12:55 Temperature 98.1 F 99.0 F Pulse Rate 67 74 Respiratory Rate 20 20 Blood Pressure 113/57 L 118/57 L Pulse Oximetry 93 93 Oxygen Delivery Nasal Cannula Oxygen Flow Rate 2 05/02/24 13:10 05/02/24 14:35 05/02/24 16:00 Temperature 98.0 F Pulse Rate 64 58 L Respiratory Rate 18 Blood Pressure 120/44 L Pulse Oximetry 97 Oxygen Delivery Nasal Cannula Oxygen Flow Rate 3 05/02/24 19:47 05/02/24 20:00 05/02/24 20:00 Temperature 97.4 F L Pulse Rate 73 65 Respiratory Rate 14 Blood Pressure 144/56 H Pulse Oximetry 95 95 Oxygen Delivery Nasal Cannula Oxygen Flow Rate 3 05/03/24 00:00 05/03/24 00:08 05/03/24 04:00 Temperature 98.0 F Pulse Rate 75 67 66 Respiratory Rate 16 Blood Pressure 136/42 L Pulse Oximetry 97 Oxygen Delivery Oxygen Flow Rate 05/03/24 04:05 Temperature 97.3 F L Pulse Rate 64 Respiratory Rate 20 Blood Pressure 110/56 L Pulse Oximetry 93 Oxygen Delivery Oxygen Flow Rate Intake/Output Intake/Output: Intake & Output 04/30/24 05/01/24 05/02/24 05/03/24 23:59 23:59 23:59 23:59 Intake Total 4280 1500 150 Output Total 600 300 400 Balance 3680 1200 -250 Meds/Results Medications: Active Medications Generic Name Dose Route Start Last Admin Trade Name Freq PRN Reason Stop Dose Admin Acetaminophen 650 mg 05/01/24 07:08 Acetaminophen 325 Mg Tablet PO Q4H PRN Mild Pain (1-3) or Fever Dextrose 12.5 gm 05/01/24 18:45 Dextrose 50% 25 Gm/50 Ml Syringe IV PUSH PRN PRN Hypoglycemia Protocol Diltiazem HCl 120 mg 05/02/24 09:00 05/02/24 09:14 Diltiazem Hcl Cd 120 Mg Cap.24hr PO 120 mg QAM TYREL Administration Enoxaparin Sodium 40 mg 05/01/24 20:35 05/02/24 09:19 Enoxaparin 40 Mg/0.4 Ml Syringe SUB-Q 40 mg DAILY TYREL Administration Gabapentin 300 mg 05/01/24 19:55 05/02/24 17:14 Gabapentin 300 Mg Capsule PO 300 mg TID TYREL Administration Glucagon 1 mg 05/01/24 18:45 Glucagon For Inj 1 Mg Vial IM PRN PRN Hypoglycemia Protocol Glucose 15 gm 05/01/24 18:45 Glucose Oral Gel 15 Gm Of Glucse In 37.5 Gm Tube PO PRN PRN Hypoglycemia Protocol Dextrose 1,000 mls @ 100 mls/hr 05/01/24 18:45 Dextrose 5% 1,000 Ml IVPB PRN PRN Hypoglycemia Protocol Azithromycin 500 mg in 250 mls @ 250 mls/hr 05/02/24 07:00 05/03/24 06:01 Zithromax IVPB 250 mls/hr Q24H TYREL Administration Ceftriaxone Sodium 1 gm in 50 mls @ 100 mls/hr 05/02/24 07:00 05/03/24 06:31 Rocephin 1 Gm/Ns 50 Ml IVPB Infused Q24H TYREL Infusion Vancomycin HCl 1,250 mg in 250 mls @ 166.667 mls/hr 05/03/24 16:00 Vancomycin 1,250 Mg/Ns 250 Ml IVPB Q24H TYREL Insulin Aspart 3 - 6 units 05/02/24 08:00 05/02/24 17:09 Insulin Aspart (*Bkc) 100 Units/Ml SUB-Q Not Given TIDWM [facility] Protocol Insulin Aspart 1 - 3 units 05/01/24 21:00 05/02/24 20:20 Insulin Aspart (*Bkc) 100 Units/Ml SUB-Q 2 units HS TYREL Administration Protocol Insulin Glargine 18 units 05/01/24 20:25 05/02/24 17:12 Insulin Glargine (*Bkc) 100 Units/Ml SUB-Q 18 units BID TYREL Administration Ondansetron HCl 4 mg 05/01/24 07:08 Ondansetron Inj 4 Mg/2 Ml Vial IV PUSH Q4H PRN Nausea Oseltamivir Phosphate 30 mg 05/01/24 21:00 05/02/24 20:24 Oseltamivir Phosphate 30 Mg Capsule PO 05/06/24 20:59 30 mg Q12HR TYREL Administration Oxycodone HCl 10 mg 05/01/24 20:00 05/03/24 04:49 Oxycodone Hcl (*Crx) 5 Mg Tab Ir PO 10 mg Q4HRT TYREL Administration Radiology Results: ITS Impressions Chest CTA 05/01/24 05:40 Impression: Diffusely increased density of the left breast with extensive left breast skin thickening. Appearance raises the possibility of inflammatory breast carcinoma. Asymmetric fluid overload would be a potential alternative consideration. Physical exam and possible mammographic workup recommended, if clinically i ndicated and not recently performed. There is airspace consolidation the peripheral left upper lobe and right middle lobe, which could reflect areas of atelectasis versus pneumonia. Correlate clinically. Peripheral airspace disease in the left upper lobe, suggestive of possible postradiation change versus additional pneumonia. Chest X-Ray 05/01/24 06:11 Impression: Patchy left lung airspace disease, as above, suspicious for pneumonia. Probable mild central congestive changes. Labs Labs: Laboratory Results - last 24 hr 05/02/24 05/02/24 05/02/24 07:48 11:36 16:57 Creatinine Estim Creat Clear Calc Estimated GFR POC Capillary Glucose 93 87 166 H 05/02/24 05/03/24 20:18 04:23 Creatinine Cancelled Estim Creat Clear Calc Cancelled Estimated GFR Cancelled POC Capillary Glucose 328 H Hospitalist MIPS Advance Care Plan I have confirmed that the patient's Advanced Care Plan is present, code status is documented, or surrogate decision maker is listed in patient medical record.: Yes Medication Reconciliation I have utilized all available resources to obtain, update and review the patients current medications (includes all prescriptions, OTC, herbals, cannabis, and nutritional supplements).: Yes
[2024-05-03 08:24] LABS: Glucose Point of Care 129 mg/dl (65-105)
[2024-05-03 08:37] LABS: Hematocrit 32.4 % (37.0-47.0); Hemoglobin 10.2 g/dL (12.0-15.0); Immature Platelet Fraction Pct 4.1 % (0.9-11.2); Mean Corpuscular HGB Conc 31.5 g/dl (32-36); Mean Corpuscular Volume 98.5 fl (80-100); Mean Platelet Volume 11.2 fl (7.4-10.4); Platelet Count Result 127 k/mm3 (150-375); Red Blood Count 3.29 M/mm3 (4.2-5.4); Red Cell Distribution Width 14.6 % (11.5-14.5); White Blood Count 3.7 K/mm3 (4.5-10.0)
[2024-05-03] MEDS: GABAPENTIN 300 MG CAPSULE PO ×3 (08:42→16:30)
[2024-05-03] MEDS: OSELTAMIVIR PHOSPHATE 30 MG CAPSULE PO ×2 (08:42→20:27)
[2024-05-03] MEDS: dilTIAZem HCL CD 120 MG CAP.24HR PO (08:42)
[2024-05-03] MEDS: ENOXAPARIN 40 MG/0.4 ML SYRINGE SUB-Q (08:44)
[2024-05-03] MEDS: INSULIN GLARGINE (*BKC) 100 UNITS/ML 20 UNITS SUB-Q ×2 (08:45→16:55)
[2024-05-03 09:09] LABS: Alanine Aminotransferase 28 U/L (6-35); Albumin Level 2.7 g/dL (3.5-5.1); Alkaline Phosphatase 84 U/L (38-126); Anion Gap 3 mmol/L (4-12); Aspartate Amino Transferase 35 U/L (14-36); Bilirubin,Total 0.3 mg/dL (0.2-1.3); Blood Urea Nitrogen 13 mg/dL (7-17); Calcium 8.4 mg/dL (8.4-10.2); Carbon Dioxide 29 mmol/L (22-30); Chloride 105 mmol/L (98-107); Estimated CRCL calculation 34 ml/min; Estimated Glomerular Filt Rate 42; Glucose 116 mg/dL (65-110); Potassium 3.8 mmol/L (3.4-5.0); Sodium 137 mmol/L (137-145)
[2024-05-03 11:53] LABS: Glucose Point of Care 168 mg/dl (65-105)
[2024-05-03] MEDS: ONDANSETRON INJ 4 MG/2 ML VIAL IV PUSH (15:32)
[2024-05-03 16:50] LABS: Glucose Point of Care 174 mg/dl (65-105)
[2024-05-03 22:21] LABS: Glucose Point of Care 225 mg/dl (65-105)
[2024-05-04] VITALS (15 sets, daily range): BP systolic 98–118; BP diastolic 46–79; PULSE 59–83; RESP 14–20; TEMP 36.1–37.9; O2SAT 88–96
[2024-05-04 04:43] LABS: Hematocrit 33.9 % (37.0-47.0); Hemoglobin 10.5 g/dL (12.0-15.0); Mean Corpuscular Hemoglobin 30.3 pg (26-34); Mean Platelet Volume 12.7 fl (7.4-10.4); Platelet Count Result 120 k/mm3 (150-375); Red Blood Count 3.46 M/mm3 (4.2-5.4); Red Cell Distribution Width 14.4 % (11.5-14.5); White Blood Count 5.2 K/mm3 (4.5-10.0)
[2024-05-04 04:58] LABS: Alanine Aminotransferase 25 U/L (6-35); Albumin Level 2.9 g/dL (3.5-5.1); Alkaline Phosphatase 83 U/L (38-126); Anion Gap 6 mmol/L (4-12); Aspartate Amino Transferase 30 U/L (14-36); Bilirubin,Total 0.4 mg/dL (0.2-1.3); Blood Urea Nitrogen 15 mg/dL (7-17); Calcium 8.4 mg/dL (8.4-10.2); Carbon Dioxide 26 mmol/L (22-30); Chloride 104 mmol/L (98-107); Estimated CRCL calculation 31 ml/min; Estimated Glomerular Filt Rate 37; Glucose 45 mg/dL (65-110); Potassium 3.5 mmol/L (3.4-5.0); Sodium 136 mmol/L (137-145)
[2024-05-04] MEDS: DEXTROSE 50% 25 GM/50 ML SYRINGE IV PUSH (05:02)
[2024-05-04] MEDS: ACETAMINOPHEN 325 MG TABLET 650 MG PO (06:09)
[2024-05-04] MEDS: AZITHROMYCIN 500 MG/NS 250 ML 500 MG/250 ML BAG 250 MG IVPB (06:58)
[2024-05-04 07:07] LABS: Glucose Point of Care 106 mg/dl (65-105)
[2024-05-04 07:07] LABS: Glucose Point of Care 48 mg/dl (65-105)
--- NOTE | 2024-05-04 07:55 | P.PNIM_ITS ---
Progress Note: A&P Assessment and Plan (1) Acute respiratory failure with hypoxia: Code(s): J96.01 - Acute respiratory failure with hypoxia Status: Acute Assessment and Plan: patient presented to the emergency department with generalized weakness after being diagnosed with influenza a chest x-ray suggestive pneumonia time of admission she was requiring 3 L nasal cannula of supplemental oxygen to maintain 92% patient does not wear oxygen at home likely secondary to COPD and pneumonia as well as influenza. * azithromycin and Rocephin also received 1 dose of vancomycin * CTA negative for PE/airspace consolidation the peripheral left upper lobe and right middle lobe, which could reflect areas of atelectasis versus pneumonia. * blood cultures grew staph capitis x1 bottle * DuoNebs * incentive spirometer * mucolytics * antipyretics * wean oxygen as tolerated (2) Pneumonia: Code(s): J18.9 - Pneumonia, unspecified organism Status: Acute Assessment and Plan: SEE ABOVE #1 (3) Chronic obstructive pulmonary disease: Code(s): J44.9 - Chronic obstructive pulmonary disease, unspecified Status: Acute Assessment and Plan: patient is a current everyday smoker history of COPD * Bronchodilators. * CTA reviewed per above #1 * incentive spirometry while awake. * azithromycin 500 PO * supplemental oxygen therapy to maintain oxygen 92% * Evaluation from home O2 if saturation less than 88% on room air. * Smoking cessation counseling done (4) Insulin dependent type 2 diabetes mellitus: Code(s): E11.9 - Type 2 diabetes mellitus without complications; Z79.4 - USP (current) use of insulin Status: Acute Assessment and Plan: patient did have an episode of hypoglycemia as low as 40 protocol followed inpatient back to 115 * Accu-Cheks a.c. HS * sliding scale insulin * hold oral diabetic medications * resume patient's home long-acting was at 18 BID then bumped to 20 now lowered to 15 BID * Diabetic diet * Optimize Akin inhibitors and statins. * Watch for hypoglycemia/hypoglycemic protocol ordered (5) Thrombocytopenia: Code(s): D69.6 - Thrombocytopenia, unspecified Status: Acute Assessment and Plan: * Likely secondary to infection * monitor daily * no need for PLT transfusion at this time (6) Tobacco dependence: Code(s): F17.200 - Nicotine dependence, unspecified, uncomplicated Status: Acute Assessment and Plan: * current smoker * smoking cessation education (7) Paroxysmal atrial fibrillation: Code(s): I48.0 - Paroxysmal atrial fibrillation Status: Acute Assessment and Plan: Patient in AFIB RVR on arrival to the ED HR 152 * Cardizem IV 10 mg in ED * Resumed Cardizem PO 120 * HR controlled today * Had been on Eliquis before unsure why it was stopped denies any HX of GI bleed or hemorrhagic stroke * CHADVASC 4 * Started patient back on Eliquis BID (8) Constipation: Code(s): K59.00 - Constipation, unspecified Status: Acute Assessment and Plan: * ABD XRAY no acute findings or fecal stasis * Bowel regimen (9) Abnormal finding on CT scan: Code(s): R93.89 - Abnormal findings on diagnostic imaging of other specified body structures Status: Acute Assessment and Plan: Diffusely increased density of the left breast with extensive left breast skin thickening. Appearance raises the possibility of inflammatory breast carcinoma. Asymmetric fluid overload would be a potential alternative consideration. * No recent mammogram on file * will need follow-up mammogram O/P Plan Code status: Full code per patient DVT prophylaxis: Lovenox Stress ulcer prophylaxis: Protonix 40 daily PT/OT notes: PT/OT Pending Disposition: patient continues admission for acute respiratory failure with hypoxia secondary to pneumonia, influenza, COPD exacerbation patient did have episode of hypoglycemia this a.m. improved with hypoglycemic protocol will continue to wean oxygen as tolerated. Patient also was in AFib RVR upon arrival to the emergency department converted with 10 mg IV push of diltiazem resumed her home diltiazem and started her on Eliquis. PT/OT rosa is pending for discharge planning. Time Spent With Patient Time with patient: 15 - 25 minutes Subjective Date/time seen: 05/04/24 07:55 Interval history: Patient is a 73-year-old female who was admitted evaluation and treatment AFib with RVR, pneumonia, influenza and now bacteremia. 05/04/2024: Assumed care Patient up in chair still on 3L NC reports SOB has improved and denied CP. HR controlled was on Eliquis before and taken off no previous history of contraindication. Patient tolerating oral intake no nausea vomiting still with some constipation passing gas. Review of Systems Review of Systems: All systems reviewed & are unremarkable except as noted in HPI and below Exam Narrative: * GENERAL: Alert and oriented x 3. No acute distress. * EYES: PERRLA. * HEENT: Moist mucous membranes. * LUNGS: Diminished auscultation bilaterally. No accessory muscle use. on 3L NC * CARDIOVASCULAR: Regular rate and rhythm. No murmur. No JVD. S1-S2 * ABDOMEN: Soft, non tenderness and non-distended. No palpable masses. * EXTREMITIES: No edema. Non-tender * SKIN: No rashes or lesions. Skin warm, dry. * NEUROLOGIC: No focal neurological deficits. CN II-XII grossly intact * PSYCHIATRIC: Appropriate mood and affect. Good judgement and insight. Objective Data Vital Signs Vital Signs: Vital Signs - 24 hr 05/03/24 08:00 05/03/24 08:03 05/03/24 08:45 Temperature 97.4 F L Pulse Rate 68 68 Respiratory Rate 19 20 Blood Pressure 118/58 L Pulse Oximetry 94 94 Oxygen Delivery Nasal Cannula Oxygen Flow Rate 3 05/03/24 12:00 05/03/24 12:01 05/03/24 16:00 Temperature 97.5 F L 98.8 F Pulse Rate 66 60 75 Respiratory Rate 19 19 Blood Pressure 116/58 L 110/58 L Pulse Oximetry 95 96 Oxygen Delivery Oxygen Flow Rate 05/03/24 16:03 05/03/24 20:00 05/03/24 20:00 Temperature 97.7 F Pulse Rate 58 L 70 Respiratory Rate 18 Blood Pressure 126/50 L Pulse Oximetry 96 96 Oxygen Delivery Nasal Cannula Oxygen Flow Rate 3 05/03/24 20:00 05/04/24 00:00 05/04/24 00:00 Temperature 98.3 F Pulse Rate 69 69 69 Respiratory Rate 20 Blood Pressure 103/48 L Pulse Oximetry 94 Oxygen Delivery Oxygen Flow Rate 05/04/24 03:11 05/04/24 04:00 05/04/24 06:09 Temperature 99.2 F 100.3 F H Pulse Rate 69 70 Respiratory Rate 20 Blood Pressure 113/48 L Pulse Oximetry 91 Oxygen Delivery Oxygen Flow Rate Intake/Output Intake/Output: Intake & Output 05/01/24 05/02/24 05/03/24 05/04/24 23:59 23:59 23:59 23:59 Intake Total 4280 1500 760 290 Output Total 600 300 850 400 Balance 3680 1200 -90 -110 Meds/Results Medications: Active Medications Generic Name Dose Route Start Last Admin Trade Name Freq PRN Reason Stop Dose Admin Acetaminophen 650 mg 05/01/24 07:08 05/04/24 06:09 Acetaminophen 325 Mg Tablet PO 650 mg Q4H PRN Administration Mild Pain (1-3) or Fever Azithromycin 500 mg 05/04/24 09:00 Azithromycin 250 Mg Tablet PO DAILY TYREL Dextrose 12.5 gm 05/01/24 18:45 05/04/24 05:02 Dextrose 50% 25 Gm/50 Ml Syringe IV PUSH 12.5 gm PRN PRN Administration Hypoglycemia Protocol Diltiazem HCl 120 mg 05/02/24 09:00 05/03/24 08:42 Diltiazem Hcl Cd 120 Mg Cap.24hr PO 120 mg QAM TYREL Administration Enoxaparin Sodium 40 mg 05/01/24 20:35 05/03/24 08:44 Enoxaparin 40 Mg/0.4 Ml Syringe SUB-Q 40 mg DAILY TYREL Administration Gabapentin 300 mg 05/01/24 19:55 05/03/24 16:30 Gabapentin 300 Mg Capsule PO 300 mg TID TYREL Administration Glucagon 1 mg 05/01/24 18:45 Glucagon For Inj 1 Mg Vial IM PRN PRN Hypoglycemia Protocol Glucose 15 gm 05/01/24 18:45 Glucose Oral Gel 15 Gm Of Glucse In 37.5 Gm Tube PO PRN PRN Hypoglycemia Protocol Dextrose 1,000 mls @ 100 mls/hr 05/01/24 18:45 Dextrose 5% 1,000 Ml IVPB PRN PRN Hypoglycemia Protocol Ceftriaxone Sodium 1 gm in 50 mls @ 100 mls/hr 05/02/24 07:00 05/04/24 06:08 Rocephin 1 Gm/Ns 50 Ml IVPB 100 mls/hr Q24H TYREL Administration Insulin Aspart 3 - 6 units 05/02/24 08:00 05/03/24 16:53 Insulin Aspart (*Bkc) 100 Units/Ml SUB-Q Not Given TIDWM [facility] Protocol Insulin Aspart 1 - 3 units 05/01/24 21:00 05/04/24 05:58 Insulin Aspart (*Bkc) 100 Units/Ml SUB-Q Not Given HS [facility] Protocol Insulin Glargine 15 units 05/04/24 09:00 Insulin Glargine (*Bkc) 100 Units/Ml SUB-Q BID TYREL Ondansetron HCl 4 mg 05/01/24 07:08 05/03/24 15:32 Ondansetron Inj 4 Mg/2 Ml Vial IV PUSH 4 mg Q4H PRN Administration Nausea Oseltamivir Phosphate 30 mg 05/01/24 21:00 05/03/24 20:27 Oseltamivir Phosphate 30 Mg Capsule PO 05/06/24 20:59 30 mg Q12HR TYREL Administration Oxycodone HCl 10 mg 05/01/24 20:00 05/04/24 05:07 Oxycodone Hcl (*Crx) 5 Mg Tab Ir PO Not Given Q4HRT [facility] Radiology Results: ITS Impressions Chest CTA 05/01/24 05:40 Impression: Diffusely increased density of the left breast with extensive left breast skin thickening. Appearance raises the possibility of inflammatory breast carcinoma. Asymmetric fluid overload would be a potential alternative consideration. Physical exam and possible mammographic workup recommended, if clinically indicated and not recently performed. There is airspace consolidation the peripheral left upper lobe and right middle lobe, which could reflect areas of atelectasis versus pneumonia. Correlate clinically. Peripheral airspace disease in the left upper lobe, suggestive of possible postradiation change versus additional pneumonia. Chest X-Ray 05/01/24 06:11 Impression: Patchy left lung airspace disease, as above, suspicious for pneumonia. Probable mild central congestive changes. Abdomen X-Ray 05/03/24 15:40 IMPRESSION: No significant fecal stasis, as detailed above. Labs Labs: Laboratory Results - last 24 hr 05/03/24 05/03/24 05/03/24 08:14 08:30 11:43 WBC 3.7 L RBC 3.29 L Hgb 10.2 L Hct 32.4 L MCV 98.5 MCH 31.0 MCHC 31.5 L RDW 14.6 H Plt Count 127 L MPV 11.2 H % Immature Plt Fraction 4.1 Sodium 137 Potassium 3.8 Chloride 105 Carbon Dioxide 29 Anion Gap 3 L BUN 13 Creatinine 1.26 H Estim Creat Clear Calc 34 Estimated GFR 42 L Glucose 116 H POC Capillary Glucose 129 H 168 H Calcium 8.4 Total Bilirubin 0.3 AST 35 ALT 28 Alkaline Phosphatase 84 Total Protein 6.0 L Albumin 2.7 L 05/03/24 05/03/24 05/04/24 16:39 20:06 03:41 WBC 5.2 RBC 3.46 L Hgb 10.5 L Hct 33.9 L MCV 98.0 MCH 30.3 MCHC 31.0 L RDW 14.4 Plt Count 120 L MPV 12.7 H % Immature Plt Fraction Sodium 136 L Potassium 3.5 Chloride 104 Carbon Dioxide 26 Anion Gap 6 BUN 15 Creatinine 1.39 H Estim Creat Clear Calc 31 Estimated GFR 37 L Glucose 45 L* POC Capillary Glucose 174 H 225 H Calcium 8.4 Total Bilirubin 0.4 AST 30 ALT 25 Alkaline Phosphatase 83 Total Protein 7.0 Albumin 2.9 L 05/04/24 05/04/24 05:01 05:13 WBC RBC Hgb Hct MCV MCH MCHC RDW Plt Count MPV % Immature Plt Fraction Sodium Potassium Chloride Carbon Dioxide Anion Gap BUN Creatinine Estim Creat Clear Calc Estimated GFR Glucose POC Capillary Glucose 48 L* 106 H Calcium Total Bilirubin AST ALT Alkaline Phosphatase Total Protein Albumin Quality VTE Prophylaxis VTE prophylaxis: pharmacologic ordered -Patient's previous records reviewed on admission -ER notes reviewed in detail on admission -discussed all findings and current treatment plan with patient/Family/POA -Consultations reviewed for recommendations -Patient's disposition for safe discharge discussed with patient case coordinator Dictation performed by [employer] direct speech recognition software, therefore medical services manager variants and typographical errors may occur. Hospitalist MIPS Advance Care Plan I have confirmed that the patient's Advanced Care Plan is present, code status is documented, or surrogate decision maker is listed in patient medical record.: Yes Medication Reconciliation I have utilized all available resources to obtain, update and review the patients current medications (includes all prescriptions, OTC, herbals, cannabis, and nutritional supplements).: Yes The patient is not eligible for med reconciliation; the patient is in a emergent medical situation where delaying treatment would jeopardize the patients health.: No
--- NOTE | 2024-05-04 08:08 | ECG_ITS ---
Test Date: 2024-05-04 10:46:05 Measurements Intervals [place] Rate: 67 P: -1 PA: 158 QRS: -3 QRSD: 82 T: -4 QT: 387 QTc: 409 Interpretive Statements SINUS RHYTHM WITH SINUS ARRHYTHMIA CONSIDER INFERIOR INFARCT, AGE INDETERMINATE ABNORMAL ECG Compared to ECG 05/01/2024 03:17:16 ATRIAL FIBRILLATION NO LONGER PRESENT Electronically Signed On 05-04-2024 11:18:22 SUPPLY CHAIN DIRECTOR by Mejia Fulton D.O.
[2024-05-04] MEDS: GLUCOSE ORAL GEL 15 GM OF GLUCSE IN 37.5 GM TUBE PO (08:29)
[2024-05-04 08:34] LABS: Glucose Point of Care 39 mg/dl (65-105)
[2024-05-04 08:59] LABS: Glucose Point of Care 83 mg/dl (65-105)
[2024-05-04] MEDS: dilTIAZem HCL CD 120 MG CAP.24HR PO (09:12)
[2024-05-04] MEDS: GABAPENTIN 300 MG CAPSULE PO ×3 (09:12→16:54)
[2024-05-04] MEDS: oxyCODONE HCL (*CRX) 5 MG TAB IR 10 MG PO ×3 (09:12→16:54)
[2024-05-04] MEDS: OSELTAMIVIR PHOSPHATE 30 MG CAPSULE PO (09:13)
[2024-05-04] MEDS: ENOXAPARIN 40 MG/0.4 ML SYRINGE SUB-Q (09:16)
[2024-05-04] MEDS: AZITHROMYCIN 250 MG TABLET 500 MG PO (09:16)
[2024-05-04] MEDS: guaiFENesin 12 HR 600 MG TABCR 1200 MG PO (09:16)
[2024-05-04] MEDS: polyethylene glycoL 3350 17 GM POWD.PACK PO (10:10)
[2024-05-04 12:21] LABS: Glucose Point of Care 204 mg/dl (65-105)
[2024-05-04] MEDS: INSULIN ASPART (*BKC) 100 UNITS/ML SUB-Q ×2 (12:35→16:59)
[2024-05-04] MEDS: IPRATROPIUM 0.5 MG/ALBUTEROL SULFATE 2.5 MG AMPUL.NEB 3 ML INHALATION ×2 (14:03→20:36)
[2024-05-04 16:59] LABS: Glucose Point of Care 244 mg/dl (65-105)
[2024-05-04] MEDS: INSULIN GLARGINE (*BKC) 100 UNITS/ML 15 UNITS SUB-Q (17:00)
--- NOTE | 2024-05-04 17:01 | PC.NURSE ---
Patient dropped one tab of oxycodone and gabapentin new medications pulled out of pyxis
[2024-05-04 21:37] LABS: Glucose Point of Care 222 mg/dl (65-105)
[2024-05-05] VITALS (17 sets, daily range): BP systolic 102–114; BP diastolic 41–82; PULSE 65–161; RESP 16–22; TEMP 36.5–37.9; O2SAT 89–99
--- NOTE | 2024-05-05 | ECHO_ITS ---
Patient Info Name: Otilia Cardenas Age: 73 years : 1950 Gender: Female Ht: 62 in Wt: 168 lbs BSA: 1.85 m2 HR: 135 bpm BP: 103 / 51 mmHg Heart Rhythm: Atrial Fibrillation Technical Quality: Good Exam Date: 05/05/2024 3:05 PM Exam Location: Echo Lab Exam Room: [facility] Patient Status: Inpatient Admit Date: 05/02/2024 Staff Ordering Physician: Sharon Eller APRN [employer] Engineer: Elise Victoria RDCS Attending Provider: Sharon Eller APRN Referring Physician: Rafita SILVESTRE; Exam Type: CA echo doppler color flow Study Info Indications - Afib wiht RVR, pulm congestion Complete two-dimensional, color flow and Doppler transthoracic echocardiogram is performed. Summary 1. Complete two-dimensional, color flow and Doppler transthoracic echocardiogram is performed. 2. Left ventricular chamber dimension is normal. 3. Left ventricular systolic function is normal, estimated at 65-70%. 4. The left ventricular diastolic function is normal. 5. E/e' 8 is minimally elevated. 6. Atrial fibrillation. 7. Left atrial chamber dimension is moderately enlarged. 8. There is mild aortic valve sclerosis. 9. There is trace tricuspid valve regurgitation. 10. Mild pulmonary hypertension, estimated pulmonary arterial systolic pressure is 49 mmHg. Left Ventricle Atrial fibrillation. E/e' 8 is minimally elevated. Left ventricular chamber dimension is normal. Left ventricular systolic function is normal, estimated at 65-70%. The left ventricular diastolic function is normal. Right Ventricle Right ventricular systolic function is normal and with normal TAPSE 2.4 cm. Right ventricular chamber dimension is normal. Left Atria Left atrial chamber dimension is moderately enlarged. Right Atria Right atrial chamber dimension is normal. Aortic Valve The aortic valve is trileaflet. There is mild aortic valve sclerosis. There is no aortic valve stenosis. There is no aortic valve regurgitation. Pulmonic Valve There is no pulmonic regurgitation. Mitral Valve There is no mitral valve stenosis. There is no mitral valve regurgitation. Tricuspid Valve There is trace tricuspid valve regurgitation. Mild pulmonary hypertension, estimated pulmonary arterial systolic pressure is 49 mmHg. Pericardium/Pleural There is no pericardial effusion. Inferior Vena Cava Normal inferior vena cava with >50% collapse upon inspiration consistent with normal right atrial pressure, 5 mmHg. Aorta The aortic root size at the sinus of Valsalva is normal. Left Ventricular Outflow Tract Name Value Normal LVOT 2D LVOT Diameter 2.0 cm LVOT Doppler LVOT Peak Gradient 6 mmHg LVOT Mean Gradient 4 mmHg LVOT VTI 19 cm LVOT VTI/AV VTI Ratio 0.6 LVOT Stroke Volume 60 ml LVOT CO 6.1 l/min LVOT CI 3.3 l/min/m2 Pulmonic Valve Name Value Normal PV Doppler PV Peak Gradient 7 mmHg Mitral Valve Name Value Normal MV Doppler MV Peak Gradient 4 mmHg MV Mean Gradient 2 mmHg MV Decel [place] 357 cm/s2 MV PHT 70 ms MV Area (PHT) 3.1 cm2 4.0-5.0 MV Area (Cont Eq VTI) 3.8 cm2 MV Regurgitation Doppler MR Peak Gradient 69 mmHg MV Diastolic Function MV E Peak Velocity 86 cm/s MV A Peak Velocity 46 cm/s MV E/A 1.9 MV Decel Time 241 ms MV Annular TDI MV E/e' (Septal) 14.2 <=8.0 MV E/e' (Lateral) 6.3 <=8.0 MV E/e' (Average) 10.2 Tricuspid Valve Name Value Normal TV Regurgitation Doppler TR Peak Velocity 332 cm/s TR Peak Gradient 44 mmHg Estimated PAP/RSVP RA Pressure 5 mmHg <=5 PA Systolic Pressure 49 mmHg <36 RV Systolic Pressure 49 mmHg <36 Aortic Valve Name Value Normal AV Doppler AV Peak Velocity 197 cm/s AV Peak Gradient 15 mmHg AV Mean Gradient 8 mmHg AV VTI 31 cm AV Area (Cont Eq VTI) 1.9 cm2 >=3.0 AV Area (Cont Eq Anup) 2.0 cm2 AV Regurgitation 2D LVOT Area 3.2 cm2 Ventricles Name Value Normal LV Dimensions 2D/MM IVS Diastolic Thickness (2D) 1.0 cm 0.6-1.0 LVID Diastole (2D) 4.0 cm 3.8-5.2 LVIW Diastolic Thickness (2D) 0.9 cm 0.6-0.9 LVID Systole (2D) 2.5 cm 2.2-3.5 LVOT Diameter 2.0 cm LV Mass (2D Cubed) 112.79 g 67.00-162.00 LV Mass Index (2D Cubed) 61 g/m2 43-95 Relative Wall Thickness (2D) 0.43 LV Fractional Shortening/Ejection Fraction 2D/MM LV Fractional Shortening (2D) 35 % 27-45 LV EF (2D Teicholz) 65 % 54-74 LV Diastolic Volume (4C MOD) 97 ml LV EF (4C MOD) 64 % LV Diastolic Length (4C) 7.5 cm LV Systolic Length (4C) 6.6 cm LV Stroke Volume (4C MOD) 62 ml Atria Name Value Normal LA Dimensions LA Volume (4C A-L) 73 ml RA Dimensions RA Area (4C) 13.5 cm2 <=18.0 Report Signatures
[2024-05-05 00:13] LABS: Glucose Point of Care 163 mg/dl (65-105)
[2024-05-05] MEDS: ACETAMINOPHEN 325 MG TABLET 650 MG PO (00:21)
[2024-05-05 06:28] LABS: Hematocrit 35.2 % (37.0-47.0); Hemoglobin 11.1 g/dL (12.0-15.0); Immature Platelet Fraction Pct 6.1 % (0.9-11.2); Mean Corpuscular HGB Conc 31.5 g/dl (32-36); Mean Corpuscular Hemoglobin 31.3 pg (26-34); Mean Corpuscular Volume 99.2 fl (80-100); Mean Platelet Volume 10.9 fl (7.4-10.4); Platelet Count Result 126 k/mm3 (150-375); Red Blood Count 3.55 M/mm3 (4.2-5.4); Red Cell Distribution Width 14.2 % (11.5-14.5); White Blood Count 6.9 K/mm3 (4.5-10.0)
[2024-05-05 06:47] LABS: Alanine Aminotransferase 75 U/L (6-35); Alkaline Phosphatase 124 U/L (38-126); Anion Gap 7 mmol/L (4-12); Aspartate Amino Transferase 80 U/L (14-36); Bilirubin,Total 0.5 mg/dL (0.2-1.3); Blood Urea Nitrogen 17 mg/dL (7-17); Calcium 8.6 mg/dL (8.4-10.2); Carbon Dioxide 26 mmol/L (22-30); Chloride 102 mmol/L (98-107); Estimated CRCL calculation 34 ml/min; Estimated Glomerular Filt Rate 41; Glucose 90 mg/dL (65-110); Potassium 4.7 mmol/L (3.4-5.0); Sodium 135 mmol/L (137-145)
--- NOTE | 2024-05-05 07:58 | P.PNIM_ITS ---
Progress Note: A&P Assessment and Plan (1) Acute respiratory failure with hypoxia: Code(s): J96.01 - Acute respiratory failure with hypoxia Status: Acute Assessment and Plan: patient presented to the emergency department with generalized weakness after being diagnosed with influenza a chest x-ray suggestive pneumonia time of admission she was requiring 3 L nasal cannula of supplemental oxygen to maintain 92% patient does not wear oxygen at home likely secondary to COPD and pneumonia as well as influenza. * azithromycin and Rocephin also received 1 dose of vancomycin * CTA negative for PE/airspace consolidation the peripheral left upper lobe and right middle lobe, which could reflect areas of atelectasis versus pneumonia. * blood cultures grew staph capitis x1 bottle Likely contaminated * DuoNebs * incentive spirometer * mucolytics * antipyretics * wean oxygen as tolerated * repeat blood cultures with no growth to date 05/05 * Increased oxygen demands multifocal AFIB, CHF?, respiratory depression from narcotics * IVP Lasix 40mg x 1 * IVP metoprolol 5mg IVP * on 5L NC (2) Pneumonia: Code(s): J18.9 - Pneumonia, unspecified organism Status: Acute Assessment and Plan: SEE ABOVE #1 (3) Paroxysmal atrial fibrillation: Code(s): I48.0 - Paroxysmal atrial fibrillation Status: Acute Assessment and Plan: Patient in AFIB RVR on arrival to the ED HR 152 * Cardizem IV 10 mg in ED * Resumed Cardizem PO 120 * HR controlled today * Had been on Eliquis before unsure why it was stopped denies any HX of GI bleed or hemorrhagic stroke * CHADVASC 4 * Started patient back on Eliquis BID 05/05: * Patient flipped into AFIB with RVR with peaked at 161 * Metoprolol 5mg IVP with improvement and received her oral Cardizem * EKG reviewed * continuous cardiac monitoring * Echo pending (4) Pulmonary congestion: Code(s): R09.89 - Other specified symptoms and signs involving the circulatory and respiratory systems Status: Acute Assessment and Plan: No HX of CHF * BNP 1800 * CXR atelectasis versus pneumonia versus pulmonary congestion * Lasix x 1 40mg IVP * Echo pending (5) Adv eff opiates: Code(s): T40.605A - Adverse effect of unspecified narcotics, initial encounter Status: Acute Assessment and Plan: Patient home dose is percocet 10mg Q4prn for pain, somnolence, hypoxic, and only minimal response to stimuli * Narcan x1 with overall improvement * decreased home dose * encourage non-narcotics for pain relief (6) Chronic obstructive pulmonary disease: Code(s): J44.9 - Chronic obstructive pulmonary disease, unspecified Status: Acute Assessment and Plan: patient is a current everyday smoker history of COPD * Bronchodilators. * CTA reviewed per above #1 * incentive spirometry while awake. * azithromycin 500 PO * supplemental oxygen therapy to maintain oxygen 92% * Evaluation from home O2 if saturation less than 88% on room air. 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 HS * sliding scale insulin * hold oral diabetic medications * resume patient's home long-acting was at 18 BID then bumped to 20 now lowered to 15 BID * Diabetic diet * Optimize Akin inhibitors and statins. * Watch for hypoglycemia/hypoglycemic protocol ordered (8) Thrombocytopenia: Code(s): D69.6 - Thrombocytopenia, unspecified Status: Acute Assessment and Plan: * Likely secondary to infection * monitor daily * no need for PLT transfusion at this time (9) Tobacco dependence: Code(s): F17.200 - Nicotine dependence, unspecified, uncomplicated Status: Acute Assessment and Plan: * current smoker * smoking cessation education (10) Constipation: Code(s): K59.00 - Constipation, unspecified Status: Acute Assessment and Plan: * ABD XRAY no acute findings or fecal stasis * Bowel regimen (11) Abnormal finding on CT scan: Code(s): R93.89 - Abnormal findings on diagnostic imaging of other specified body structures Status: Acute Assessment and Plan: Diffusely increased density of the left breast with extensive left breast skin thickening. Appearance raises the possibility of inflammatory breast carcinoma. Asymmetric fluid overload would be a potential alternative consideration. * No recent mammogram on file * will need follow-up mammogram O/P Plan Code status: Full code per patient DVT prophylaxis: Lovenox Stress ulcer prophylaxis: Protonix 40 daily PT/OT notes: PT/OT Pending Disposition: patient continues admission for acute respiratory failure with hypoxia secondary to pneumonia, influenza, COPD exacerbation, AFIB RVR and patient did have episode of hypoglycemia this a.m. improved with hypoglycemic protocol will continue to wean oxygen as tolerated. PT/OT eval is pending for discharge planning. Time Spent With Patient Time with patient: 15 - 25 minutes Subjective Date/time seen: 05/05/24 07:58 Interval history: Patient is a 73-year-old female who was admitted evaluation and treatment AFib with RVR, pneumonia, influenza and now bacteremia. 05/05/2024: Patient Oxygen saturation dropped below 88 and had to increase to 5L, she was lethargic and minimal response to stimuli with low RR likely secondary to her narcotic's gave Narcan and patient improved alert and oriented answering all questions. CXR showed pulmonary congestion and BNP elevated received Lasix IVP x 1 40 mg. During this event she went into AFIB RVR with a rate as high as 150 she had already received her oral Cardizem just prior to event added 5 mg IVP metoprolol. Patient denied CP or SOB and was not using any accessory muscles. Patient with overall improvement and was resting comfortably after medication. Review of Systems Review of Systems: All systems reviewed & are unremarkable except as noted in HPI and below Exam Narrative: * GENERAL: Alert and oriented x 3. No acute distress. * EYES: PERRLA. * HEENT: Moist mucous membranes. * LUNGS: Diminished auscultation bilaterally. No accessory muscle use. on 3L NC * CARDIOVASCULAR: Irregular Irregular. No murmur. * ABDOMEN: Soft, non tenderness and non-distended. * EXTREMITIES: No edema. Non-tender * SKIN: No rashes or lesions. Skin warm, dry. * NEUROLOGIC: No focal neurological deficits. CN II-XII grossly intact * PSYCHIATRIC: Appropriate mood and affect. Good judgement and insight. Objective Data Vital Signs Vital Signs: Vital Signs - 24 hr 05/04/24 08:00 05/04/24 08:00 05/04/24 12:00 Temperature 97 F L Pulse Rate 64 62 65 Respiratory Rate 18 Blood Pressure 98/46 L Pulse Oximetry 94 Oxygen Delivery Oxygen Flow Rate 05/04/24 12:00 05/04/24 14:06 05/04/24 14:06 Temperature Pulse Rate 65 63 Respiratory Rate 14 Blood Pressure 118/52 L Pulse Oximetry 96 92 Oxygen Delivery Nasal Cannula Oxygen Flow Rate 3 05/04/24 14:14 05/04/24 15:45 05/04/24 15:46 Temperature Pulse Rate 64 Respiratory Rate 14 Blood Pressure Pulse Oximetry 88 L 94 Oxygen Delivery Nasal Cannula Nasal Cannula Oxygen Flow Rate 2 3 05/04/24 16:00 05/04/24 16:00 05/04/24 20:00 Temperature 99.9 F H Pulse Rate 72 64 59 L Respiratory Rate 18 Blood Pressure 116/54 L 115/79 Pulse Oximetry 95 92 Oxygen Delivery Oxygen Flow Rate 05/04/24 20:00 05/04/24 20:00 05/04/24 20:36 Temperature Pulse Rate 83 79 Respiratory Rate 14 Blood Pressure Pulse Oximetry 93 Oxygen Delivery Nasal Cannula Oxygen Flow Rate 3 05/04/24 20:40 05/04/24 20:48 05/05/24 00:00 Temperature 100.2 F H Pulse Rate 74 91 Respiratory Rate 14 20 Blood Pressure 114/61 Pulse Oximetry 92 99 Oxygen Delivery Nasal Cannula Oxygen Flow Rate 3 05/05/24 00:21 05/05/24 04:00 05/05/24 04:00 Temperature 100.2 F H 97.9 F Pulse Rate 71 65 Respiratory Rate 20 Blood Pressure 111/51 L Pulse Oximetry 92 Oxygen Delivery Oxygen Flow Rate Intake/Output Intake/Output: Intake & Output 05/02/24 05/03/24 05/04/24 05/05/24 23:59 23:59 23:59 23:59 Intake Total 0237 888 3513 400 Output Total 300 850 850 500 Balance 1200 -90 920 -100 Meds/Results Medications: Active Medications Generic Name Dose Route Start Last Admin Trade Name Freq PRN Reason Stop Dose Admin Acetaminophen 650 mg 05/01/24 07:08 05/05/24 00:21 Acetaminophen 325 Mg Tablet PO 650 mg Q4H PRN Administration Mild Pain (1-3) or Fever Albuterol/Ipratropium 3 ml 05/04/24 14:00 05/05/24 04:56 Ipratropium 0.5 Mg/Albuterol Sulfate 2.5 Mg Ampul.Neb 3 Ml INHALATION Not Given Q6HRT TYREL Apixaban 5 mg 05/04/24 21:00 05/04/24 23:08 Apixaban 5 Mg Tablet PO Not Given Q12HR TYREL Azithromycin 500 mg 05/04/24 09:00 05/04/24 09:16 Azithromycin 250 Mg Tablet PO 500 mg DAILY TYREL Administration Dextrose 12.5 gm 05/01/24 18:45 05/04/24 05:02 Dextrose 50% 25 Gm/50 Ml Syringe IV PUSH 12.5 gm PRN PRN Administration Hypoglycemia Protocol Diltiazem HCl 120 mg 05/02/24 09:00 05/04/24 09:12 Diltiazem Hcl Cd 120 Mg Cap.24hr PO 120 mg QAM TYREL Administration Gabapentin 300 mg 05/01/24 19:55 05/04/24 16:54 Gabapentin 300 Mg Capsule PO 300 mg TID TYREL Administration Glucagon 1 mg 05/01/24 18:45 Glucagon For Inj 1 Mg Vial IM PRN PRN Hypoglycemia Protocol Glucose 15 gm 05/01/24 18:45 05/04/24 08:29 Glucose Oral Gel 15 Gm Of Glucse In 37.5 Gm Tube PO 15 gm PRN PRN Administration Hypoglycemia Protocol Guaifenesin 1,200 mg 05/04/24 09:00 05/04/24 23:08 Guaifenesin 12 Hr 600 Mg Tabcr PO Not Given Q12HR TYREL Dextrose 1,000 mls @ 100 mls/hr 05/01/24 18:45 Dextrose 5% 1,000 Ml IVPB PRN PRN Hypoglycemia Protocol Ceftriaxone Sodium 1 gm in 50 mls @ 100 mls/hr 05/02/24 07:00 05/05/24 06:45 Rocephin 1 Gm/Ns 50 Ml IVPB 100 mls/hr Q24H TYREL Administration Insulin Aspart 3 - 6 units 05/02/24 08:00 05/04/24 16:59 Insulin Aspart (*Bkc) 100 Units/Ml SUB-Q 3 units TIDWM TYREL Administration Protocol Insulin Aspart 1 - 3 units 05/01/24 21:00 05/04/24 23:08 Insulin Aspart (*Bkc) 100 Units/Ml SUB-Q Not Given HS [facility] Protocol Insulin Glargine 15 units 05/04/24 09:00 05/04/24 17:00 Insulin Glargine (*Bkc) 100 Units/Ml SUB-Q 15 units BID TYREL Administration Ondansetron HCl 4 mg 05/01/24 07:08 05/03/24 15:32 Ondansetron Inj 4 Mg/2 Ml Vial IV PUSH 4 mg Q4H PRN Administration Nausea Oseltamivir Phosphate 30 mg 05/01/24 21:00 05/04/24 23:09 Oseltamivir Phosphate 30 Mg Capsule PO 05/06/24 20:59 Not Given Q12HR TYREL Oxycodone HCl 10 mg 05/01/24 20:00 05/05/24 04:15 Oxycodone Hcl (*Crx) 5 Mg Tab Ir PO Not Given Q4HRT [facility] Polyethylene Glycol 17 gm 05/04/24 09:25 05/04/24 10:10 Polyethylene Glycol 3350 17 Gm Powd.Pack PO 17 gm QAM TYREL Administration Radiology Results: ITS Impressions Chest CTA 05/01/24 05:40 Impression: Diffusely increased density of the left breast with extensive left breast skin thickening. Appearance raises the possibility of inflammatory breast carcinoma. Asymmetric fluid overload would be a potential alternative consideration. Physical exam and possible mammographic workup recommended, if clinically indicated and not recently performed. There is airspace consolidation the peripheral left upper lobe and right middle lobe, which could reflect areas of atelectasis versus pneumonia. Correlate clinically. Peripheral airspace disease in the left upper lobe, suggestive of possible postradiation change versus additional pneumonia. Chest X-Ray 05/01/24 06:11 Impression: Patchy left lung airspace disease, as above, suspicious for pneumonia. Probable mild central congestive changes. Abdomen X-Ray 05/03/24 15:40 IMPRESSION: No significant fecal stasis, as detailed above. Labs Labs: Laboratory Results - last 24 hr 05/04/24 05/04/24 05/04/24 08:24 08:56 12:18 WBC RBC Hgb Hct MCV MCH MCHC RDW Plt Count MPV % Immature Plt Fraction Sodium Potassium Chloride Carbon Dioxide Anion Gap BUN Creatinine Estim Creat Clear Calc Estimated GFR Glucose POC Capillary Glucose 39 L* 83 204 H Calcium Total Bilirubin AST ALT Alkaline Phosphatase Total Protein Albumin 05/04/24 05/04/24 05/05/24 16:55 20:01 00:10 WBC RBC Hgb Hct MCV MCH MCHC RDW Plt Count MPV % Immature Plt Fraction Sodium Potassium Chloride Carbon Dioxide Anion Gap BUN Creatinine Estim Creat Clear Calc Estimated GFR Glucose POC Capillary Glucose 244 H 222 H 163 H Calcium Total Bilirubin AST ALT Alkaline Phosphatase Total Protein Albumin 05/05/24 05:32 WBC 6.9 RBC 3.55 L Hgb 11.1 L Hct 35.2 L MCV 99.2 MCH 31.3 MCHC 31.5 L RDW 14.2 Plt Count 126 L MPV 10.9 H % Immature Plt Fraction 6.1 Sodium 135 L Potassium 4.7 Chloride 102 Carbon Dioxide 26 Anion Gap 7 BUN 17 Creatinine 1.29 H Estim Creat Clear Calc 34 Estimated GFR 41 L Glucose 90 POC Capillary Glucose Calcium 8.6 Total Bilirubin 0.5 AST 80 H ALT 75 H Alkaline Phosphatase 124 Total Protein 7.0 Albumin 3.0 L Quality VTE Prophylaxis VTE prophylaxis: pharmacologic ordered -Patient's previous records reviewed on admission -ER notes reviewed in detail on admission -discussed all findings and current treatment plan with patient/Family/POA -Consultations reviewed for recommendations -Patient's disposition for safe discharge discussed with piano case and bench assembler Dictation performed by [employer] direct speech recognition software, therefore ink blender variants and typographical errors may occur. Hospitalist MIPS Advance Care Plan I have confirmed that the patient's Advanced Care Plan is present, code status is documented, or surrogate decision maker is listed in patient medical record.: Yes Medication Reconciliation I have utilized all available resources to obtain, update and review the patients current medications (includes all prescriptions, OTC, herbals, cannabis, and nutritional supplements).: Yes The patient is not eligible for med reconciliation; the patient is in a emergent medical situation where delaying treatment would jeopardize the patients health.: No
[2024-05-05 08:24] LABS: Glucose Point of Care 71 mg/dl (65-105)
[2024-05-05] MEDS: APIXABAN 5 MG TABLET PO ×2 (08:44→20:35)
[2024-05-05] MEDS: dilTIAZem HCL CD 120 MG CAP.24HR PO (08:44)
[2024-05-05] MEDS: AZITHROMYCIN 250 MG TABLET 500 MG PO (08:44)
[2024-05-05] MEDS: OSELTAMIVIR PHOSPHATE 30 MG CAPSULE PO ×2 (08:44→20:35)
[2024-05-05] MEDS: GABAPENTIN 300 MG CAPSULE PO ×3 (08:45→16:04)
[2024-05-05] MEDS: guaiFENesin 12 HR 600 MG TABCR 1200 MG PO ×2 (08:45→20:35)
[2024-05-05] MEDS: oxyCODONE HCL (*CRX) 5 MG TAB IR 10 MG PO (08:48)
[2024-05-05] MEDS: FUROSEMIDE INJ 40 MG/4 ML VIAL IV PUSH (09:27)
[2024-05-05] MEDS: IPRATROPIUM 0.5 MG/ALBUTEROL SULFATE 2.5 MG AMPUL.NEB 3 ML INHALATION ×2 (09:49→14:56)
[2024-05-05] MEDS: NALOXONE HCL INJ 2 MG/2 ML AMP IV PUSH (10:13)
[2024-05-05] MEDS: METOPROLOL TARTRATE INJ 5 MG/5 ML VIAL IV PUSH ×2 (10:18→16:01)
--- NOTE | 2024-05-05 10:24 | ECG_ITS ---
Test Date: 2024-05-05 11:26:47 Measurements Intervals [place] Rate: 120 P: 0 ND: 0 QRS: 8 QRSD: 82 T: -1 QT: 298 QTc: 422 Interpretive Statements ATRIAL FIBRILLATION WITH RAPID VENTRICULAR RESPONSE CONSIDER INFERIOR INFARCT, AGE INDETERMINATE CONSIDER ANTERIOR INFARCT, AGE INDETERMINATE ABNORMAL ECG Compared to ECG 05/04/2024 10:46:05 Sinus rhythm no longer present Electronically Signed On 05-05-2024 17:02:25 POLICE OFFICER by Mejia Fulton D.O.
--- NOTE | 2024-05-05 12:11 | PCPTNOTE ---
The patient treatment was not able to be completed this morning due to patient presenting with a resting HR of 120's to 160's. Will plan to continue treatment per plan of care.
[2024-05-05 12:15] LABS: Glucose Point of Care 187 mg/dl (65-105)
[2024-05-05] MEDS: oxyCODONE HCL (*CRX) 5 MG TAB IR PO (15:31)
[2024-05-05] MEDS: INSULIN GLARGINE (*BKC) 100 UNITS/ML 15 UNITS SUB-Q (16:42)
[2024-05-05] MEDS: INSULIN ASPART (*BKC) 100 UNITS/ML SUB-Q ×2 (16:43→20:33)
[2024-05-05 17:00] LABS: Glucose Point of Care 386 mg/dl (65-105)
[2024-05-05] MEDS: LEVALBUTEROL NEB 1.25 MG/3 ML INHALATION (17:10)
[2024-05-05 21:22] LABS: Glucose Point of Care 396 mg/dl (65-105)
[2024-05-06] VITALS (21 sets, daily range): BP systolic 68–118; BP diastolic 33–63; PULSE 72–176; RESP 16–24; TEMP 36.3–38; O2SAT 87–95
[2024-05-06] MEDS: METOPROLOL TARTRATE INJ 5 MG/5 ML VIAL IV PUSH (00:21)
[2024-05-06] MEDS: ACETAMINOPHEN 325 MG TABLET 650 MG PO ×2 (00:22→20:44)
[2024-05-06] MEDS: LEVALBUTEROL NEB 1.25 MG/3 ML INHALATION ×3 (00:33→15:07)
[2024-05-06 00:45] LABS: Alveolar/Arterial O2 Gradient 194.6 mmHg; Base Excess ABG 4.5 mEq/l (+/-2.0); Fractional Inspired Oxygen 45 %; HCO3 ABG 29.6 mEq/l (22.0-26.0); Oxygen Content ABG 17.6 %vol (16.0-22.0); Oxygen Saturation ABG 95.2 % (95.0-100.0); Oxyhemoglobin 94.4 % THb (90.0-100.0); PCO2 ABG 45.8 mmHg (35.0-45.0); PO2 ABG 74.2 mmHg (80.0-100.0); PO2 FiO2 Ratio Arterial Blood 1.65 %; Total Hemoglobin 13.2 g/dL (12.0-18.0); pH ABG 7.428 (7.350-7.450)
[2024-05-06 00:46] LABS: Modified Allen's Test Pass; Site Drawn RIGHT RADIAL
[2024-05-06 00:47] LABS: Device SIMPLE MASK
[2024-05-06] MEDS: SODIUM CHLORIDE 0.9% IV 500 ML IV CONT (01:46)
--- NOTE | 2024-05-06 04:36 | P.PNCROSS_ITS ---
Event Note Event Note Event Note: Nursing staff called just after midnight on the . The patient has a history of AFib and was more persistently tachycardic with heart rates in the 120s to 150s. The patient was resting comfortably in not agitated. The patient had responded well earlier in the day to IV Lopressor and her oral metoprolol had been increased. Patient's blood pressures were stable in the 110s systolic and subsequently given order for 1 dose of IV Lopressor. The nurse at also noticed that the patient had been confused each night she took care of the patient and was concerned since the patient had required Narcan. I did check an ABG to rule out CO2 narcosis which was normal with compensated hypercarbia. Nursing staff went in to re-evaluate the patient around 01:10 and check the patient's blood pressure. The patient's blood pressures were reportedly in the 60s. However the patient was actually resting more comfortably and did wake up for nursing staff and responded more appropriately than she had for the last 3 nights. She answered all of my orientation questions correctly when I went to evaluate her. The patient had gotten a dose of Lasix earlier in the day. However given the increased heart rate despite the Lopressor and, dry mucous membranes I did give the patient a 500 mL fluid bolus. Cord away through the fluid bolus patient's blood pressures had improved to 80 systolic. Patient's heart rate had also come down to the low 100s. After fluid bolus was completed patient's heart rate was down to 80 in the patient's blood pressure had improved back to 114/39. Of note patient has had lower diastolic pressures throughout most of the hospital stay. The patient has not required any pain medications overnight. Her abnormal movements and restless movements the nursing staff in noted earlier in the night and another shifts/days had resolved by the time my evaluation. 40 minute spent in critical care activities Due to a high probability of clinically significant, life threatening deterioration, the patient required my highest level of preparedness to in [facility] emergently and I personally spent this critical care time directly and personally managing the patient. This critical care time included obtaining a history; examining the patient; pulse oximetry; ordering and review of studies; arranging urgent treatment with development of a management plan; evaluation of patient's response to treatment; frequent reassessment; and discussions with other providers. It was exclusive of separately billable procedures and treating other patients and teaching time. Please see Assessment and Plan section and the rest of the note for further information on patient assessment and treatment.
[2024-05-06 06:04] LABS: Hematocrit 36.2 % (37.0-47.0); Hemoglobin 11.2 g/dL (12.0-15.0); Mean Corpuscular HGB Conc 30.9 g/dl (32-36); Mean Corpuscular Hemoglobin 30.7 pg (26-34); Mean Corpuscular Volume 99.2 fl (80-100); Mean Platelet Volume 11.8 fl (7.4-10.4); Platelet Count Result 146 k/mm3 (150-375); Red Blood Count 3.65 M/mm3 (4.2-5.4); Red Cell Distribution Width 14.1 % (11.5-14.5)
[2024-05-06 06:23] LABS: Alanine Aminotransferase 52 U/L (6-35); Albumin Level 2.8 g/dL (3.5-5.1); Alkaline Phosphatase 140 U/L (38-126); Anion Gap 3 mmol/L (4-12); Aspartate Amino Transferase 38 U/L (14-36); Bilirubin,Total 0.5 mg/dL (0.2-1.3); Blood Urea Nitrogen 20 mg/dL (7-17); Calcium 8.7 mg/dL (8.4-10.2); Carbon Dioxide 33 mmol/L (22-30); Chloride 101 mmol/L (98-107); Estimated CRCL calculation 30 ml/min; Estimated Glomerular Filt Rate 35; Glucose 162 mg/dL (65-110); Magnesium 2.2 mg/dL (1.6-2.3); Potassium 4.6 mmol/L (3.4-5.0); Sodium 137 mmol/L (137-145)
--- NOTE | 2024-05-06 08:11 | P.PNIM_ITS ---
Progress Note: A&P Assessment and Plan (1) Acute respiratory failure with hypoxia: Code(s): J96.01 - Acute respiratory failure with hypoxia Status: Acute Assessment and Plan: patient presented to the emergency department with generalized weakness after being diagnosed with influenza a chest x-ray suggestive pneumonia time of admission she was requiring 3 L nasal cannula of supplemental oxygen to maintain 92% patient does not wear oxygen at home likely secondary to COPD and pneumonia as well as influenza. * azithromycin and Rocephin also received 1 dose of vancomycin * CTA negative for PE/airspace consolidation the peripheral left upper lobe and right middle lobe, which could reflect areas of atelectasis versus pneumonia. * blood cultures grew staph capitis x1 bottle Likely contaminated * DuoNebs * incentive spirometer * mucolytics * antipyretics * wean oxygen as tolerated * repeat blood cultures with no growth to date 05/05 * Increased oxygen demands multifocal AFIB, CHF?, respiratory depression from narcotics * IVP Lasix 40mg x 1 * IVP metoprolol 5mg IVP * on 5L NC 05/06: * Patient doing better with Venturi mask at 5 L NC (2) Pneumonia: Code(s): J18.9 - Pneumonia, unspecified organism Status: Acute Assessment and Plan: SEE ABOVE #1 (3) Paroxysmal atrial fibrillation: Code(s): I48.0 - Paroxysmal atrial fibrillation Status: Acute Assessment and Plan: Patient in AFIB RVR on arrival to the ED HR 152 * Cardizem IV 10 mg in ED * Resumed Cardizem PO 120 * HR controlled today * Had been on Eliquis before unsure why it was stopped denies any HX of GI bleed or hemorrhagic stroke * CHADVASC 4 * Started patient back on Eliquis BID 05/05: * Patient flipped into AFIB with RVR with peaked at 161 * Metoprolol 5mg IVP with improvement and received her oral Cardizem * EKG reviewed * continuous cardiac monitoring * Echo pending 05/06: * HR controlled at 80 SR today * Plan to start sotalol * D/C Cardizem (4) Pulmonary congestion: Code(s): R09.89 - Other specified symptoms and signs involving the circulatory and respiratory systems Status: Acute Assessment and Plan: No HX of CHF * BNP 1800 * CXR atelectasis versus pneumonia versus pulmonary congestion * Lasix x 1 40mg IVP * Echo pending 05/06: * LVEF 65-70%/AFIB/mild pulmonary HTN (5) Adv eff opiates: Code(s): T40.605A - Adverse effect of unspecified narcotics, initial encounter Status: Acute Assessment and Plan: Patient home dose is percocet 10mg Q4prn for pain, somnolence, hypoxic, and only minimal response to stimuli * Narcan x1 with overall improvement * decreased home dose * encourage non-narcotics for pain relief (6) Chronic obstructive pulmonary disease: Code(s): J44.9 - Chronic obstructive pulmonary disease, unspecified Status: Acute Assessment and Plan: patient is a current everyday smoker history of COPD * Bronchodilators. * CTA reviewed per above #1 * incentive spirometry while awake. * azithromycin 500 PO * supplemental oxygen therapy to maintain oxygen 92% * Evaluation from home O2 if saturation less than 88% on room air. * Smoking cessation counseling done (7) Insulin dependent type 2 diabetes mellitus: Code(s): E11.9 - Type 2 diabetes mellitus without complications; Z79.4 - residential (current) use of insulin Status: Acute Assessment and Plan: patient did have an episode of hypoglycemia as low as 40 protocol followed inpatient back to 115 * Accu-Cheks a.c. HS * sliding scale insulin * hold oral diabetic medications * resume patient's home long-acting was at 18 BID then bumped to 20 now lowered to 15 BID * Diabetic diet * Optimize Akin inhibitors and statins. * Watch for hypoglycemia/hypoglycemic protocol ordered (8) Thrombocytopenia: Code(s): D69.6 - Thrombocytopenia, unspecified Status: Acute Assessment and Plan: * Likely secondary to infection * monitor daily * no need for PLT transfusion at this time (9) Tobacco dependence: Code(s): F17.200 - Nicotine dependence, unspecified, uncomplicated Status: Acute Assessment and Plan: * current smoker * smoking cessation education (10) Constipation: Code(s): K59.00 - Constipation, unspecified Status: Acute Assessment and Plan: * ABD XRAY no acute findings or fecal stasis * Bowel regimen (11) Abnormal finding on CT scan: Code(s): R93.89 - Abnormal findings on diagnostic imaging of other specified body structures Status: Acute Assessment and Plan: Diffusely increased density of the left breast with extensive left breast skin thickening. Appearance raises the possibility of inflammatory breast carcinoma. Asymmetric fluid overload would be a potential alternative consideration. * No recent mammogram on file * will need follow-up mammogram O/P Plan Code status: Full code per patient DVT prophylaxis: Eliquis Stress ulcer prophylaxis: Protonix 40 daily PT/OT notes: PT/OT Disposition: patient continues admission for acute respiratory failure with hypoxia secondary to pneumonia, influenza, COPD exacerbation, AFIB RVR and patient did have episode of hypoglycemia this a.m. improved with hypoglycemic protocol will continue to wean oxygen as tolerated. Will transfer to IMU and start sotalol need 3 days with EKGs monitor QTC. Time Spent With Patient Time with patient: 15 - 25 minutes Subjective Date/time seen: 05/06/24 08:11 Interval history: Patient is a 73-year-old female who was admitted evaluation and treatment AFib with RVR, pneumonia, influenza and now bacteremia. 05/06/2024: Patient continued to have episodes of AFIB/STACH in the 120's-150 the overnight provider evaluated patient and gave 5mg IVP Lopressor which she responded to but had a hypotension and was bolus of 500 ML NS. Patient with overall improvement to BP and HR controlled at 80 SR. Patient still on 5L supplemental oxygen but denies SOB, CP, dizziness or palpitations. Was resting comfortably in bed, cardiology starting sotalol for better control transfer diarrhea Review of Systems Review of Systems: All systems reviewed & are unremarkable except as noted in HPI and below Exam Narrative: * GENERAL: Alert and oriented x 3. No acute distress. * EYES: PERRLA. * HEENT: Moist mucous membranes. * LUNGS: Diminished auscultation bilaterally. No accessory muscle use. on 3L NC * CARDIOVASCULAR: Irregular Irregular. No murmur. * ABDOMEN: Soft, non tenderness and non-distended. * EXTREMITIES: No edema. Non-tender * SKIN: No rashes or lesions. Skin warm, dry. * NEUROLOGIC: No focal neurological deficits. CN II-XII grossly intact * PSYCHIATRIC: Appropriate mood and affect. Good judgement and insight. Objective Data Vital Signs Vital Signs: Vital Signs - 24 hr 05/05/24 09:49 05/05/24 09:49 05/05/24 10:05 Temperature Pulse Rate 104 H 140 H Respiratory Rate 16 16 Blood Pressure Pulse Oximetry 92 Oxygen Delivery Nasal Cannula Oxygen Flow Rate 5 05/05/24 10:18 05/05/24 12:00 05/05/24 12:00 Temperature 98.4 F Pulse Rate 161 H 99 135 H Respiratory Rate 18 Blood Pressure 103/51 L Pulse Oximetry 91 Oxygen Delivery Oxygen Flow Rate 05/05/24 14:57 05/05/24 15:07 05/05/24 16:00 Temperature 98.2 F Pulse Rate 105 H 115 H 109 H Respiratory Rate 16 16 18 Blood Pressure 109/49 L Pulse Oximetry 95 Oxygen Delivery Oxygen Flow Rate 05/05/24 16:00 05/05/24 16:01 05/05/24 17:13 Temperature Pulse Rate 144 H 138 H Respiratory Rate Blood Pressure Pulse Oximetry 95 Oxygen Delivery Simple Face Mask Oxygen Flow Rate 5 05/05/24 17:13 05/05/24 17:24 05/05/24 20:00 Temperature 99.7 F H Pulse Rate 103 H 117 H 125 H Respiratory Rate 16 16 22 H Blood Pressure 104/82 Pulse Oximetry 93 Oxygen Delivery Oxygen Flow Rate 05/05/24 20:00 05/05/24 20:35 05/05/24 23:44 Temperature 99.9 F H Pulse Rate 126 H 134 H Respiratory Rate 20 Blood Pressure 108/66 Pulse Oximetry 95 92 Oxygen Delivery Simple Face Mask Oxygen Flow Rate 5 05/06/24 00:00 05/06/24 00:21 05/06/24 00:22 Temperature 99.9 F H Pulse Rate 176 H 146 H Respiratory Rate Blood Pressure Pulse Oximetry Oxygen Delivery Oxygen Flow Rate 05/06/24 00:34 05/06/24 01:22 05/06/24 01:28 Temperature 98.2 F Pulse Rate 141 H 144 H Respiratory Rate 16 Blood Pressure 68/46 L Pulse Oximetry Oxygen Delivery Oxygen Flow Rate 05/06/24 01:43 05/06/24 04:00 05/06/24 04:00 Temperature 98.3 F 98.7 F Pulse Rate 75 80 Respiratory Rate 20 Blood Pressure 114/39 L Pulse Oximetry 93 Oxygen Delivery Oxygen Flow Rate Intake/Output Intake/Output: Intake & Output 05/03/24 05/04/24 05/05/24 05/06/24 23:59 23:59 23:59 23:59 Intake Total 760 1770 930 500 Output Total 135 055 8265 200 Balance -90 920 -1670 300 Meds/Results Medications: Active Medications Generic Name Dose Route Start Last Admin Trade Name Freq PRN Reason Stop Dose Admin Acetaminophen 650 mg 05/01/24 07:08 05/06/24 00:22 Acetaminophen 325 Mg Tablet PO 650 mg Q4H PRN Administration Mild Pain (1-3) or Fever Apixaban 5 mg 05/04/24 21:00 05/05/24 20:35 Apixaban 5 Mg Tablet PO 5 mg Q12HR TYREL Administration Azithromycin 500 mg 05/04/24 09:00 05/05/24 08:44 Azithromycin 250 Mg Tablet PO 500 mg DAILY TYREL Administration Dextrose 12.5 gm 05/01/24 18:45 05/04/24 05:02 Dextrose 50% 25 Gm/50 Ml Syringe IV PUSH 12.5 gm PRN PRN Administration Hypoglycemia Protocol Diltiazem HCl 120 mg 05/02/24 09:00 05/05/24 08:44 Diltiazem Hcl Cd 120 Mg Cap.24hr PO 120 mg QAM TYREL Administration Gabapentin 300 mg 05/01/24 19:55 05/05/24 16:04 Gabapentin 300 Mg Capsule PO 300 mg TID TYREL Administration Glucagon 1 mg 05/01/24 18:45 Glucagon For Inj 1 Mg Vial IM PRN PRN Hypoglycemia Protocol Glucose 15 gm 05/01/24 18:45 05/04/24 08:29 Glucose Oral Gel 15 Gm Of Glucse In 37.5 Gm Tube PO 15 gm PRN PRN Administration Hypoglycemia Protocol Guaifenesin 1,200 mg 05/04/24 09:00 05/05/24 20:35 Guaifenesin 12 Hr 600 Mg Tabcr PO 1,200 mg Q12HR TYREL Administration Dextrose 1,000 mls @ 100 mls/hr 05/01/24 18:45 Dextrose 5% 1,000 Ml IVPB PRN PRN Hypoglycemia Protocol Ceftriaxone Sodium 1 gm in 50 mls @ 100 mls/hr 05/02/24 07:00 05/06/24 07:24 Rocephin 1 Gm/Ns 50 Ml IVPB 100 mls/hr Q24H TYREL Administration Insulin Aspart 3 - 6 units 05/02/24 08:00 05/05/24 16:43 Insulin Aspart (*Bkc) 100 Units/Ml SUB-Q 6 units TIDWM TYREL Administration Protocol Insulin Aspart 1 - 3 units 05/01/24 21:00 05/05/24 20:33 Insulin Aspart (*Bkc) 100 Units/Ml SUB-Q 3 units HS TYREL Administration Protocol Insulin Glargine 15 units 05/04/24 09:00 05/05/24 16:42 Insulin Glargine (*Bkc) 100 Units/Ml SUB-Q 15 units BID TYREL Administration Levalbuterol HCl 1.25 mg 05/05/24 16:00 05/06/24 00:33 Levalbuterol Neb 1.25 Mg/3 Ml INHALATION 1.25 mg Q8HRT TYREL Administration Ondansetron HCl 4 mg 05/01/24 07:08 05/03/24 15:32 Ondansetron Inj 4 Mg/2 Ml Vial IV PUSH 4 mg Q4H PRN Administration Nausea Oseltamivir Phosphate 30 mg 05/01/24 21:00 05/05/24 20:35 Oseltamivir Phosphate 30 Mg Capsule PO 05/06/24 20:59 30 mg Q12HR TYREL Administration Oxycodone HCl 5 mg 05/05/24 14:00 05/06/24 04:37 Oxycodone Hcl (*Crx) 5 Mg Tab Ir PO Not Given Q6H TYREL Perflutren Lipid Microsphere 0 ml 05/05/24 08:55 Perflutren Lipid Microspheres 1.5 Ml Vial Diluted To 10 Ml Total Volume IV PUSH 05/08/24 08:56 ONCE PRN adequate visualization Protocol Polyethylene Glycol 17 gm 05/04/24 09:25 05/05/24 09:29 Polyethylene Glycol 3350 17 Gm Powd.Pack PO Not Given QAM [facility] Radiology Results: ITS Impressions Chest CTA 05/01/24 05:40 Impression: Diffusely increased density of the left breast with extensive left breast skin thickening. Appearance raises the possibility of inflammatory breast carcinoma. Asymmetric fluid overload would be a potential alternative consideration. Physical exam and possible mammographic workup recommended, if clinically indicated and not recently performed. There is airspace consolidation the peripheral left upper lobe and right middle lobe, which could reflect areas of atelectasis versus pneumonia. Correlate clinically. Peripheral airspace disease in the left upper lobe, suggestive of possible postradiation change versus additional pneumonia. Abdomen X-Ray 05/03/24 15:40 IMPRESSION: No significant fecal stasis, as detailed above. Chest X-Ray 05/05/24 10:02 IMPRESSION: 1. No change in patchy airspace opacities throughout the left lung and in the right lower lung zone which could represent atelectasis or pneumonia. Labs Labs: Laboratory Results - last 24 hr 05/05/24 05/05/24 05/05/24 08:07 11:51 16:38 WBC RBC Hgb Hct MCV MCH MCHC RDW Plt Count MPV Puncture Site ABG pH ABG pCO2 ABG pO2 ABG PO2/FiO2 Ratio ABG HCO3 ABG O2 Saturation ABG O2 Content ABG Base Excess A-a Gradient Oxyhemoglobin Total Hemoglobin O2 Delivery Device O2 Liters/Min FiO2 Sodium Potassium Chloride Carbon Dioxide Anion Gap BUN Creatinine Estim Creat Clear Calc Estimated GFR Glucose POC Capillary Glucose 71 187 H 386 H Calcium Magnesium Total Bilirubin AST ALT Alkaline Phosphatase Total Protein Albumin 05/05/24 05/06/24 05/06/24 20:17 00:25 05:08 WBC 8.0 RBC 3.65 L Hgb 11.2 L Hct 36.2 L MCV 99.2 MCH 30.7 MCHC 30.9 L RDW 14.1 Plt Count 146 L MPV 11.8 H Puncture Site Right radial ABG pH 7.428 ABG pCO2 45.8 H ABG pO2 74.2 L ABG PO2/FiO2 Ratio 1.65 ABG HCO3 29.6 H ABG O2 Saturation 95.2 ABG O2 Content 17.6 ABG Base Excess 4.5 A-a Gradient 194.6 Oxyhemoglobin 94.4 Total Hemoglobin 13.2 O2 Delivery Device Simple mask O2 Liters/Min 5.0 FiO2 45 Sodium 137 Potassium 4.6 Chloride 101 Carbon Dioxide 33 H Anion Gap 3 L BUN 20 H Creatinine 1.47 H Estim Creat Clear Calc 30 Estimated GFR 35 L Glucose 162 H POC Capillary Glucose 396 H Calcium 8.7 Magnesium 2.2 Total Bilirubin 0.5 AST 38 H ALT 52 H Alkaline Phosphatase 140 H Total Protein 7.0 Albumin 2.8 L Quality VTE Prophylaxis VTE prophylaxis: pharmacologic ordered -Patient's previous records reviewed on admission -ER notes reviewed in detail on admission -discussed all findings and current treatment plan with patient/Family/POA -Consultations reviewed for recommendations -Patient's disposition for safe discharge discussed with case folder Dictation performed by [employer] direct speech recognition software, therefore banking officer variants and typographical errors may occur. Hospitalist MIPS Advance Care Plan I have confirmed that the patient's Advanced Care Plan is present, code status is documented, or surrogate decision maker is listed in patient medical record.: Yes Medication Reconciliation I have utilized all available resources to obtain, update and review the patients current medications (includes all prescriptions, OTC, herbals, cannabis, and nutritional supplements).: Yes The patient is not eligible for med reconciliation; the patient is in a emergent medical situation where delaying treatment would jeopardize the patients health.: No
[2024-05-06 08:23] LABS: Glucose Point of Care 136 mg/dl (65-105)
[2024-05-06] MEDS: APIXABAN 5 MG TABLET PO ×2 (08:36→20:45)
[2024-05-06] MEDS: polyethylene glycoL 3350 17 GM POWD.PACK PO (08:36)
[2024-05-06] MEDS: dilTIAZem HCL CD 120 MG CAP.24HR PO (08:36)
[2024-05-06] MEDS: GABAPENTIN 300 MG CAPSULE PO ×3 (08:36→17:53)
[2024-05-06] MEDS: AZITHROMYCIN 250 MG TABLET 500 MG PO (08:36)
[2024-05-06] MEDS: OSELTAMIVIR PHOSPHATE 30 MG CAPSULE PO (08:36)
[2024-05-06] MEDS: guaiFENesin 12 HR 600 MG TABCR 1200 MG PO ×2 (08:36→20:43)
[2024-05-06] MEDS: INSULIN GLARGINE (*BKC) 100 UNITS/ML 15 UNITS SUB-Q ×2 (08:38→17:53)
--- NOTE | 2024-05-06 10:38 | PM.CNCAR ---
Assessment and Plan Assessment and plan (1) Paroxysmal atrial fibrillation: Code(s): I48.0 - Paroxysmal atrial fibrillation Status: Acute Plan 73-year-old lady who was hospitalized here with influenza pneumonia. She has a history of paroxysmal atrial fibrillation we are continuing to see this during this hospitalization. Fortunately would during her AFib she appears to be asymptomatic. Further she is taking a modest dose of long-acting diltiazem. She has been started back on anticoagulation 2 days ago by the hospitalist team. This is obviously appropriate. I do not have any explanation as to why this was discontinued by the PCP according to the patient's history. I am going to recommend starting her on sotalol and discontinuing diltiazem for more effective rhythm control. While she is in the hospital we will watch her telemetry as she takes sotalol and hopefully this will be effective for her. Tomi Segovia MD [facility] History of Present Illness History of Present Illness Consult date/time: 05/06/24 10:38 Reason For Visit: Pneumonia/Hypoxia/New O2 Requirement/Afib Occas RV Narrative: This is a 73-year-old woman I am seeing today at the request of the hospitalist because of atrial fibrillation. Patient is unknown to me prior to this encounter. She says she has a history of atrial fibrillation intermittently for a couple of years. She is being managed by her PCP. She states that the reason for her atrial fibrillation seems to be unknown. When she has atrial fibrillation she does not notice any sense of it with the way of palpitations tachycardia or any other sick symptoms or distress. She says that her PCP for a while had her on apixaban for this but that for whatever reason it was discontinued. She is currently in the hospital here with shortness of breath and coughing with evidence of influenza pneumonia. She seems to be gradually improving over the last several days. While she has been in the hospital she is on telemetry. Upon arrival at the hospital on 05/01/2024 she was in atrial fibrillation with a heart rate of about 115. Following that she was in sinus rhythm yesterday for a while she was in atrial fibrillation again. She is taking diltiazem 120 mg daily for this as well as p.r.n. injections of metoprolol. She is now anticoagulated with apixaban which was started on 05/04/2024. Echocardiogram during this hospitalization shows vigorous left ventricular systolic function and no significant valvular disease. She is currently in sinus rhythm. Review of Systems Constitutional: Constitutional: Reports no additional constitutional complaints Eyes: Eyes: Reports no additional eye complaints ENT: Reports system reviewed and no additional complaints, except as documented Cardiovascular: Cardiovascular: Reports no additional cardiovascular complaints Respiratory: Respiratory: Reports cough Gastrointestinal: Gastrointestinal: Reports no additional gastrointestinal complaints Musculoskeletal: Musculoskeletal: Reports back pain Integumentary/Breasts: Skin/Breast: Reports system reviewed and no additional complaints, except as docu Neurologic: Reports system reviewed and no additional complaints, except as documented Endocrine: Endocrine: Reports no additional endocrine complaints Hematologic/Lymphatic: Hematologic/Lymphatic: Reports no additional hematologic/lymphatic complaints Allergic/Immunologic: Allergic/Immunologic: Reports no additional allergic/immunologic complaints [facility] Past Medical History Medical History Anxiety Chronic anemia Chronic obstructive pulmonary disease Depression Hearing loss Hyperlipidemia Hypertension Insulin dependent type 2 diabetes mellitus MRSA infection MRSA infection of the right hand in October 2013. 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 Amputation of digit of right hand Secondary to osteomyelitis. History of appendectomy History of carpal tunnel release History of section History of exploratory laparotomy History of hysterectomy History of open reduction and internal fixation (ORIF) procedure (03/2021) Repair of right ankle fracture per Dr. Cristo Lewis at [facility] in [place]. Status post excision of lipoma Family History Family History (Updated 05/01/24 @ 12:53 by Jeane Alva RN) Father Diabetes mellitus Family history of malignant neoplasm Colon cancer Mother Family history of malignant neoplasm Social History Social History (Updated 05/01/24 @ 09:58 by Charline Garcia MD) Social History: Surrogate medical decision maker: Kavitha Sterling, daughter. Code status: Full code. Smoking packs per day: 1 Smoking cigarettes per day: 20.0 Years smoked: 30 Smoking pack-years: 30.00 Smoking status: Former smoker Tobacco type: cigarettes Second hand tobacco smoke exposure: Yes Smoking end date: 03/21/19 Additional smoking assessment comments: Up to 2 PPD at one point (for 50 years, 100 pack years) . Still vapes. Alcohol intake: never Substance use: never Substance use type: does not use Do You Feel Safe in your Home?: Yes Lack of Transportation: YES Lack of Food: Never True Current Housing: I Have Housing Concerned About Future Housing: No Difficulty Paying Gas/Electric Bills: No Difficulty Paying for Meds: No Currently Unemployed: No Education: High School Diploma/GED Difficulty w/ Childcare or Family Care: No Living arrangements: with family Additional living arrangements comments: The patient lives with her daughter Kavitha in [place]. Spiritual care concerns: No Meds Home Medications and Allergies Home Medications ?Medication ?Instructions ?Recorded ?Confirmed ?Type albuterol sulfate 90 mcg/actuation 2 inh inhalation PRN PRN SOB 07/14/20 05/01/24 History aerosol inhaler gabapentin 300 mg capsule 300 mg PO TID 07/14/20 05/01/24 History insulin glargine 100 unit/mL (3 18 unit subcut BID 07/14/20 05/01/24 History mL) subcutaneous pen (Lantus Solostar U-100 Insulin) diltiazem HCl 120 mg 120 mg PO DAILY 12/07/21 05/01/24 History capsule,extended release 24 hr, controlled (DILT-XR) clindamycin HCl 150 mg capsule 150 mg PO TID 05/01/24 05/01/24 History insulin aspart U-100 100 unit/mL 1 sliding scale dose subcut 05/01/24 05/01/24 History (3 mL) subcutaneous pen TIDWMEAL mometasone 0.1 % topical cream 1 applic topical DAILY PRN itching 05/01/24 05/02/24 History nitrofurantoin 100 mg PO TID 05/01/24 05/01/24 History monohydrate/macrocrystals 100 mg capsule oxycodone 10 mg tablet 10 mg PO Q4H 05/01/24 05/01/24 History Allergies Allergy/AdvReac Type Severity Reaction Status Date / Time eucalyptus Allergy Intermediate BLISTERS Verified 12/02/23 15:53 quinine Allergy Intermediate HIVES Verified 12/02/23 15:53 cephalexin Allergy Unknown Itching Verified 12/02/23 15:53 levofloxacin Allergy Unknown Unknown Verified 12/02/23 15:53 menthol Allergy Unknown BLISTERS Verified 12/02/23 15:53 Quinolones Allergy Unknown Verified 12/02/23 15:53 aspirin AdvReac Unknown Vomiting Verified 12/02/23 15:53 Vital Signs Vital Signs - 24 hr 05/05/24 12:00 05/05/24 12:00 05/05/24 14:57 Temperature 36.9 C Pulse Rate 99 135 H 105 H Respiratory Rate 18 16 Blood Pressure 103/51 L Pulse Oximetry 91 Oxygen Delivery Oxygen Flow Rate Fraction of Inspired Oxygen 05/05/24 15:07 05/05/24 16:00 05/05/24 16:00 Temperature 36.8 C Pulse Rate 115 H 109 H 144 H Respiratory Rate 16 18 Blood Pressure 109/49 L Pulse Oximetry 95 Oxygen Delivery Oxygen Flow Rate Fraction of Inspired Oxygen 05/05/24 16:01 05/05/24 17:13 05/05/24 17:13 Temperature Pulse Rate 138 H 103 H Respiratory Rate 16 Blood Pressure Pulse Oximetry 95 Oxygen Delivery Simple Face Mask Oxygen Flow Rate 5 Fraction of Inspired Oxygen 05/05/24 17:24 05/05/24 20:00 05/05/24 20:00 Temperature 37.6 C H Pulse Rate 117 H 125 H 126 H Respiratory Rate 16 22 H Blood Pressure 104/82 Pulse Oximetry 93 Oxygen Delivery Oxygen Flow Rate Fraction of Inspired Oxygen 05/05/24 20:35 05/05/24 23:44 05/06/24 00:00 Temperature 37.7 C H Pulse Rate 134 H 176 H Respiratory Rate 20 Blood Pressure 108/66 Pulse Oximetry 95 92 Oxygen Delivery Simple Face Mask Oxygen Flow Rate 5 Fraction of Inspired Oxygen 05/06/24 00:21 05/06/24 00:22 05/06/24 00:34 Temperature 37.7 C H Pulse Rate 146 H 141 H Respiratory Rate 16 Blood Pressure Pulse Oximetry Oxygen Delivery Oxygen Flow Rate Fraction of Inspired Oxygen 05/06/24 01:22 05/06/24 01:28 05/06/24 01:43 Temperature 36.8 C 36.8 C Pulse Rate 144 H Respiratory Rate Blood Pressure 68/46 L Pulse Oximetry Oxygen Delivery Oxygen Flow Rate Fraction of Inspired Oxygen 05/06/24 04:00 05/06/24 04:00 05/06/24 08:00 Temperature 37.1 C 36.3 C L Pulse Rate 75 80 76 Respiratory Rate 20 16 Blood Pressure 114/39 L 102/43 L Pulse Oximetry 93 94 Oxygen Delivery Oxygen Flow Rate Fraction of Inspired Oxygen 05/06/24 08:00 05/06/24 08:00 05/06/24 09:28 Temperature Pulse Rate 84 84 Respiratory Rate 20 Blood Pressure Pulse Oximetry 93 93 Oxygen Delivery Venturi Mask Nasal Cannula Oxygen Flow Rate 5 6 Fraction of Inspired Oxygen 44 05/06/24 09:28 05/06/24 09:37 Temperature Pulse Rate 91 100 Respiratory Rate 18 20 Blood Pressure Pulse Oximetry Oxygen Delivery Oxygen Flow Rate Fraction of Inspired Oxygen Exam Const: General: comfortable and no acute distress HENMT: Mouth: Yes moist mucous membranes Eyes: Sclera: sclerae normal Neck: Neck: supple and no JVD Resp: Effort & Inspection: normal respiratory effort Other: Few coarse rhonchi are noted no rales no wheeze Cardio: Rate: regular rate Rhythm: regular rhythm Other: No murmur no gallop GI: GI Palp: Yes Soft to palpation Auscultation: normal bowel sounds Skin: General skin exam: normal color Neuro: Other: Alert and oriented x3 Extrem: Other: No edema, good perfusion Results Labs and Meds 05/06/24 05:08 05/06/24 05:08 Lab results: Cardiac Enzymes 05/06/24 Range/Units 05:08 AST 38 H (14-36) U/L CBC 05/06/24 Range/Units 05:08 WBC 8.0 (4.5-10.0) K/mm3 RBC 3.65 L (4.2-5.4) M/mm3 Hgb 11.2 L (12.0-15.0) g/dL Hct 36.2 L (37.0-47.0) % Plt Count 146 L (150-375) k/mm3 Comprehensive Metabolic Panel 05/06/24 Range/Units 05:08 Sodium 137 (137-145) mmol/L Potassium 4.6 (3.4-5.0) mmol/L Chloride 101 (98-107) mmol/L Carbon Dioxide 33 H (22-30) mmol/L BUN 20 H (7-17) mg/dL Creatinine 1.47 H (0.7-1.0) mg/dL Glucose 162 H (65-110) mg/dL Calcium 8.7 (8.4-10.2) mg/dL AST 38 H (14-36) U/L ALT 52 H (6-35) U/L Alkaline Phosphatase 140 H (38-126) U/L Total Protein 7.0 (6.3-8.2) g/dL Albumin 2.8 L (3.5-5.1) g/dL Intake and Output 05/05/24 05/06/24 05/06/24 23:59 07:59 15:59 Intake Total 240 500 240 Output Total 1300 200 Balance -1060 300 240 Intake: Oral 240 500 240 Output: Catheter Urine 1300 200 External/Condom 1300 200 Other: Number of Bowel Movements Today 3 1 Patient Weight 05/06/24 23:59 Weight 75 kg
[2024-05-06] MEDS: INSULIN ASPART (*BKC) 100 UNITS/ML SUB-Q ×2 (12:23→17:51)
[2024-05-06 13:00] LABS: Glucose Point of Care 332 mg/dl (65-105)
[2024-05-06 17:52] LABS: Glucose Point of Care 403 mg/dl (65-105)
--- NOTE | 2024-05-06 18:57 | PC.NURSE ---
1630 Pt transferred to [id number] for initiation of Sotolol therapy & monitoring
[2024-05-06] MEDS: SOTALOL HCL 80 MG TABLET PO (20:44)
[2024-05-06] MEDS: INSULIN ASPART (*BKC) 100 UNITS/ML 10 UNITS SUB-Q (20:47)
--- NOTE | 2024-05-06 21:45 | ECG_ITS ---
Test Date: 2024-05-06 21:41:07 Measurements Intervals [place] Rate: 87 P: 54 [place]: 165 QRS: -4 QRSD: 81 T: 17 QT: 347 QTc: 418 Interpretive Statements SINUS RHYTHM WITH SINUS ARRHYTHMIA CONSIDER INFERIOR INFARCT, AGE INDETERMINATE BASELINE WANDER- I, II, III, AVR, AVL, AVF, V1, V6 ABNORMAL ECG Compared to ECG 05/05/2024 11:26:47 Atrial fibrillation no longer present Electronically Signed On 05-07-2024 07:07:00 [employer] by Mejia Fulton D.O.
[2024-05-06 23:20] LABS: Glucose Point of Care 401 mg/dl (65-105)
[2024-05-06 23:49] LABS: Glucose Point of Care 237 mg/dl (65-105)
[2024-05-07] VITALS (24 sets, daily range): BP systolic 117–136; BP diastolic 35–42; PULSE 58–99; RESP 16–20; TEMP 36.4–37.3; O2SAT 92–100
[2024-05-07] MEDS: LEVALBUTEROL NEB 1.25 MG/3 ML INHALATION ×2 (02:29→07:20)
[2024-05-07 07:53] LABS: Glucose Point of Care 109 mg/dl (65-105)
--- NOTE | 2024-05-07 08:47 | P.PNCA_ITS ---
Progress Note: A&P Assessment and Plan (1) Paroxysmal atrial fibrillation: Code(s): I48.0 - Paroxysmal atrial fibrillation Status: Acute Plan 73-year-old woman with COPD, active tobacco user, and paroxysmal atrial fibrillation who was admitted for management of pneumonia was found to have paroxysmal atrial fibrillation with rapid ventricular rates Paroxysmal atrial fibrillation -currently in sinus with rhythm controlled by sotalol 80 mg p.o. q.12 hours -repeat EKG to assess QTC -continue Eliquis Subjective Date/time seen: 05/07/24 08:47 Interval history: Denies any chest discomfort. States her shortness of breath has significantly improved since admission. Review of Systems Cardiovascular: Cardiovascular: Reports as per HPI Respiratory: Respiratory: Reports as per HPI Exam Const: General: comfortable HENMT: Mouth: Yes moist mucous membranes Eyes: EOM: EOMs intact bilaterally Neck: Neck: no JVD Cardio: Rate: regular rate Rhythm: regular rhythm Extrem: General: no pedal edema Objective Data Vital Signs Vital Signs: Vital Signs - 24 hr 05/06/24 09:28 05/06/24 09:28 05/06/24 09:37 Temperature Pulse Rate 91 100 Respiratory Rate 18 20 Blood Pressure Pulse Oximetry 93 Oxygen Delivery Nasal Cannula Oxygen Flow Rate 6 Fraction of Inspired Oxygen 44 05/06/24 12:00 05/06/24 12:00 05/06/24 15:07 Temperature 36.9 C Pulse Rate 72 88 Respiratory Rate 16 Blood Pressure 108/33 L Pulse Oximetry 95 91 Oxygen Delivery Simple Face Mask Oxygen Flow Rate 5 Fraction of Inspired Oxygen 35 05/06/24 15:07 05/06/24 15:17 05/06/24 16:00 Temperature Pulse Rate 90 95 87 Respiratory Rate 20 20 Blood Pressure Pulse Oximetry Oxygen Delivery Oxygen Flow Rate Fraction of Inspired Oxygen 05/06/24 16:11 05/06/24 19:58 05/06/24 20:00 Temperature 36.9 C 38.0 C H Pulse Rate 86 100 Respiratory Rate 24 H 18 Blood Pressure 114/63 118/62 Pulse Oximetry 87 L 95 95 Oxygen Delivery Nasal Cannula Oxygen Flow Rate 5 Fraction of Inspired Oxygen 05/06/24 20:00 05/06/24 20:44 05/06/24 22:00 Temperature Pulse Rate 98 100 80 Respiratory Rate Blood Pressure Pulse Oximetry Oxygen Delivery Oxygen Flow Rate Fraction of Inspired Oxygen 05/06/24 23:24 05/07/24 00:00 05/07/24 00:00 Temperature 37.4 C Pulse Rate 80 76 Respiratory Rate 18 Blood Pressure 114/45 L Pulse Oximetry 91 95 Oxygen Delivery Nasal Cannula Oxygen Flow Rate 5 Fraction of Inspired Oxygen 05/07/24 02:30 05/07/24 02:43 05/07/24 03:37 Temperature 36.9 C Pulse Rate 99 99 69 Respiratory Rate 16 16 20 Blood Pressure 129/42 L Pulse Oximetry 94 Oxygen Delivery Oxygen Flow Rate Fraction of Inspired Oxygen 05/07/24 04:00 05/07/24 04:00 05/07/24 05:29 Temperature Pulse Rate 69 70 Respiratory Rate Blood Pressure Pulse Oximetry 94 Oxygen Delivery Nasal Cannula Oxygen Flow Rate 5 Fraction of Inspired Oxygen 05/07/24 07:20 05/07/24 07:20 05/07/24 07:30 Temperature Pulse Rate 94 94 96 Respiratory Rate 18 18 18 Blood Pressure Pulse Oximetry 93 Oxygen Delivery High Flow Nasal Cannula Oxygen Flow Rate 5 Fraction of Inspired Oxygen 05/07/24 08:17 Temperature 37.2 C Pulse Rate 58 L Respiratory Rate 20 Blood Pressure 117/36 L Pulse Oximetry 100 Oxygen Delivery Oxygen Flow Rate Fraction of Inspired Oxygen Intake/Output Intake/Output: Intake & Output 05/04/24 05/05/24 05/06/24 05/07/24 23:59 23:59 23:59 23:59 Intake Total 1612 844 5060 300 Output Total 850 2600 400 500 Balance 920 -1670 1480 -200 Meds/Results Medications: Active Medications Generic Name Dose Route Start Last Admin Trade Name Freq PRN Reason Stop Dose Admin Acetaminophen 650 mg 05/01/24 07:08 05/06/24 20:44 Acetaminophen 325 Mg Tablet PO 650 mg Q4H PRN Administration Mild Pain (1-3) or Fever Apixaban 5 mg 05/04/24 21:00 05/06/24 20:45 Apixaban 5 Mg Tablet PO 5 mg Q12HR TYREL Administration Azithromycin 500 mg 05/04/24 09:00 05/06/24 08:36 Azithromycin 250 Mg Tablet PO 500 mg DAILY TYREL Administration Dextrose 12.5 gm 05/01/24 18:45 05/04/24 05:02 Dextrose 50% 25 Gm/50 Ml Syringe IV PUSH 12.5 gm PRN PRN Administration Hypoglycemia Protocol Gabapentin 300 mg 05/01/24 19:55 05/06/24 17:53 Gabapentin 300 Mg Capsule PO 300 mg TID TYREL Administration Glucagon 1 mg 05/01/24 18:45 Glucagon For Inj 1 Mg Vial IM PRN PRN Hypoglycemia Protocol Glucose 15 gm 05/01/24 18:45 05/04/24 08:29 Glucose Oral Gel 15 Gm Of Glucse In 37.5 Gm Tube PO 15 gm PRN PRN Administration Hypoglycemia Protocol Guaifenesin 1,200 mg 05/04/24 09:00 05/06/24 20:43 Guaifenesin 12 Hr 600 Mg Tabcr PO 1,200 mg Q12HR TYREL Administration Dextrose 1,000 mls @ 100 mls/hr 05/01/24 18:45 Dextrose 5% 1,000 Ml IVPB PRN PRN Hypoglycemia Protocol Ceftriaxone Sodium 1 gm in 50 mls @ 100 mls/hr 05/02/24 07:00 05/07/24 06:57 Rocephin 1 Gm/Ns 50 Ml IVPB 100 mls/hr Q24H TYREL Administration Insulin Aspart 3 - 6 units 05/02/24 08:00 05/06/24 17:51 Insulin Aspart (*Bkc) 100 Units/Ml SUB-Q 6 units TIDWM TYREL Administration Protocol Insulin Aspart 1 - 3 units 05/01/24 21:00 05/06/24 20:47 Insulin Aspart (*Bkc) 100 Units/Ml SUB-Q Not Given HS [facility] Protocol Insulin Glargine 15 units 05/04/24 09:00 05/06/24 17:53 Insulin Glargine (*Bkc) 100 Units/Ml SUB-Q 15 units BID TYREL Administration Levalbuterol HCl 1.25 mg 05/05/24 16:00 05/07/24 07:20 Levalbuterol Neb 1.25 Mg/3 Ml INHALATION 1.25 mg Q8HRT TYREL Administration Ondansetron HCl 4 mg 05/01/24 07:08 05/03/24 15:32 Ondansetron Inj 4 Mg/2 Ml Vial IV PUSH 4 mg Q4H PRN Administration Nausea Oxycodone HCl 5 mg 05/05/24 14:00 05/07/24 02:19 Oxycodone Hcl (*Crx) 5 Mg Tab Ir PO Not Given Q6H [facility] Perflutren Lipid Microsphere 0 ml 05/05/24 08:55 Perflutren Lipid Microspheres 1.5 Ml Vial Diluted To 10 Ml Total Volume IV PUSH 05/08/24 08:56 ONCE PRN adequate visualization Protocol Polyethylene Glycol 17 gm 05/04/24 09:25 05/06/24 08:36 Polyethylene Glycol 3350 17 Gm Powd.Pack PO 17 gm QAM TYREL Administration Sotalol HCl 80 mg 05/06/24 21:00 05/06/24 20:44 Sotalol Hcl 80 Mg Tablet PO 80 mg Q12HR TYREL Administration Radiology Results: ITS Impressions Chest CTA 05/01/24 05:40 Impression: Diffusely increased density of the left breast with extensive left breast skin thickening. Appearance raises the possibility of inflammatory breast carcinoma. Asymmetric fluid overload would be a potential alternative consideration. Physical exam and possible mammographic workup recommended, if clinically indicated and not recently performed. There is airspace consolidation the peripheral left upper lobe and right middle lobe, which could reflect areas of atelectasis versus pneumonia. Correlate clinically. Peripheral airspace disease in the left upper lobe, suggestive of possible postradiation change versus additional pneumonia. Abdomen X-Ray 05/03/24 15:40 IMPRESSION: No significant fecal stasis, as detailed above. Chest X-Ray 05/05/24 10:02 IMPRESSION: 1. No change in patchy airspace opacities throughout the left lung and in the right lower lung zone which could represent atelectasis or pneumonia. Labs Labs: Laboratory Results - last 24 hr 05/06/24 05/06/24 05/06/24 11:44 17:48 20:01 POC Capillary Glucose 332 H 403 H 401 H 05/06/24 05/07/24 23:01 07:34 POC Capillary Glucose 237 H 109 H
--- NOTE | 2024-05-07 08:53 | ECG_ITS ---
Test Date: 2024-05-07 09:11:43 Measurements Intervals [place] Rate: 68 P: 52 [place]: 164 QRS: -4 QRSD: 78 T: 27 QT: 400 QTc: 426 Interpretive Statements SINUS RHYTHM POSSIBLE ANTERIOR MYOCARDIAL INFARCTION , OF INDETERMINATE AGE CONSIDER INFERIOR INFARCT, AGE INDETERMINATE BASELINE ARTIFACT- I, II, III, AVR, AVL, AVF, V4-V5 ABNORMAL ECG Compared to ECG 05/06/2024 21:41:07 NO SIGNIFICANT CHANGE Electronically Signed On 05-07-2024 09:39:30 [employer] by Mejia Fulton D.O.
--- NOTE | 2024-05-07 09:29 | P.PNIM_ITS ---
Progress Note: A&P Assessment and Plan (1) Acute respiratory failure with hypoxia: Code(s): J96.01 - Acute respiratory failure with hypoxia Status: Acute Assessment and Plan: patient presented to the emergency department with generalized weakness after being diagnosed with influenza a chest x-ray suggestive pneumonia time of admission she was requiring 3 L nasal cannula of supplemental oxygen to maintain 92% patient does not wear oxygen at home likely secondary to COPD and pneumonia as well as influenza. * azithromycin and Rocephin also received 1 dose of vancomycin * CTA negative for PE/airspace consolidation the peripheral left upper lobe and right middle lobe, which could reflect areas of atelectasis versus pneumonia. * blood cultures grew staph capitis x1 bottle Likely contaminated * DuoNebs * incentive spirometer * mucolytics * antipyretics * wean oxygen as tolerated * repeat blood cultures with no growth to date 05/05 * Increased oxygen demands multifocal AFIB, CHF?, respiratory depression from narcotics * IVP Lasix 40mg x 1 * IVP metoprolol 5mg IVP * on 5L NC 05/06: * Patient doing better with Venturi mask at 5 L NC 05/07: * Continue to wean oxygen * May need home 02 evaluation prior to discharge (2) Pneumonia: Code(s): J18.9 - Pneumonia, unspecified organism Status: Acute Assessment and Plan: SEE ABOVE #1 (3) Paroxysmal atrial fibrillation: Code(s): I48.0 - Paroxysmal atrial fibrillation Status: Acute Assessment and Plan: Patient in AFIB RVR on arrival to the ED HR 152 * Cardizem IV 10 mg in ED * Resumed Cardizem PO 120 * HR controlled today * Had been on Eliquis before unsure why it was stopped denies any HX of GI bleed or hemorrhagic stroke * CHADVASC 4 * Started patient back on Eliquis BID 05/05: * Patient flipped into AFIB with RVR with peaked at 161 * Metoprolol 5mg IVP with improvement and received her oral Cardizem * EKG reviewed * continuous cardiac monitoring * Echo pending 05/06: * HR controlled at 80 SR today * Plan to start sotalol * D/C Cardizem 05/07: * SR on sotalol * EKG: Qtc 426 (4) Pulmonary congestion: Code(s): R09.89 - Other specified symptoms and signs involving the circulatory and respiratory systems Status: Acute Assessment and Plan: No HX of CHF * BNP 1800 * CXR atelectasis versus pneumonia versus pulmonary congestion * Lasix x 1 40mg IVP * Echo pending 05/06: * LVEF 65-70%/AFIB/mild pulmonary HTN (5) Adv eff opiates: Code(s): T40.605A - Adverse effect of unspecified narcotics, initial encounter Status: Acute Assessment and Plan: Patient home dose is percocet 10mg Q4prn for pain, somnolence, hypoxic, and only minimal response to stimuli * Narcan x1 with overall improvement * decreased home dose * encourage non-narcotics for pain relief (6) Chronic obstructive pulmonary disease: Code(s): J44.9 - Chronic obstructive pulmonary disease, unspecified Status: Acute Assessment and Plan: patient is a current everyday smoker history of COPD * Bronchodilators. * CTA reviewed per above #1 * incentive spirometry while awake. * azithromycin 500 PO * supplemental oxygen therapy to maintain oxygen 92% * Evaluation from home O2 if saturation less than 88% on room air. * Smoking cessation counseling done (7) Insulin dependent type 2 diabetes mellitus: Code(s): E11.9 - Type 2 diabetes mellitus without complications; Z79.4 - [facility] (current) use of insulin Status: Acute Assessment and Plan: patient did have an episode of hypoglycemia as low as 40 protocol followed inpatient back to 115 * Accu-Cheks a.c. HS * sliding scale insulin * hold oral diabetic medications * resume patient's home long-acting was at 18 BID then bumped to 20 now lowered to 15 BID * Diabetic diet * Optimize Akin inhibitors and statins. * Watch for hypoglycemia/hypoglycemic protocol ordered (8) Thrombocytopenia: Code(s): D69.6 - Thrombocytopenia, unspecified Status: Resolved Assessment and Plan: * Likely secondary to infection * monitor daily * no need for PLT transfusion at this time RESOLVED PLT 199 (9) Tobacco dependence: Code(s): F17.200 - Nicotine dependence, unspecified, uncomplicated Status: Acute Assessment and Plan: * current smoker * smoking cessation education (10) Constipation: Code(s): K59.00 - Constipation, unspecified Status: Acute Assessment and Plan: * ABD XRAY no acute findings or fecal stasis * Bowel regimen (11) Abnormal finding on CT scan: Code(s): R93.89 - Abnormal findings on diagnostic imaging of other specified body structures Status: Acute Assessment and Plan: Diffusely increased density of the left breast with extensive left breast skin thickening. Appearance raises the possibility of inflammatory breast carcinoma. Asymmetric fluid overload would be a potential alternative consideration. * No recent mammogram on file * will need follow-up mammogram O/P Plan Code status: Full code per patient DVT prophylaxis: Eliquis Stress ulcer prophylaxis: Protonix 40 daily PT/OT notes: PT/OT Disposition: patient continues admission for acute respiratory failure with hypoxia secondary to pneumonia, influenza, COPD exacerbation, AFIB RVR and patient did have episode of hypoglycemia this a.m. improved with hypoglycemic protocol will continue to wean oxygen as tolerated. Will transfer to IMU and start sotalol need 3 days with EKGs monitor QTC. May need home oxygen prior to discharge. Time Spent With Patient Time with patient: 15 - 25 minutes Subjective Date/time seen: 05/07/24 09:29 Interval history: Patient is a 73-year-old female who was admitted evaluation and treatment AFib with RVR, pneumonia, influenza and now bacteremia. 05/07/2024: Patient with no complaints just sleepy denies CP SOB still on 5L NC, patient in SR 70 started on Sotalol overnight QTC 426. Review of Systems Review of Systems: All systems reviewed & are unremarkable except as noted in HPI and below Exam Narrative: * GENERAL: Alert and oriented x 3. No acute distress. * EYES: PERRLA. * HEENT: Moist mucous membranes. * LUNGS: Diminished auscultation bilaterally. No accessory muscle use. on 5L NC * CARDIOVASCULAR: SR. No murmur. * ABDOMEN: Soft, non tenderness and non-distended. * EXTREMITIES: No edema. Non-tender * SKIN: No rashes or lesions. Skin warm, dry. * NEUROLOGIC: No focal neurological deficits. CN II-XII grossly intact * PSYCHIATRIC: Appropriate mood and affect. Good judgement and insight. Objective Data Vital Signs Vital Signs: Vital Signs - 24 hr 05/06/24 09:37 05/06/24 12:00 05/06/24 12:00 Temperature 98.4 F Pulse Rate 100 72 88 Respiratory Rate 20 16 Blood Pressure 108/33 L Pulse Oximetry 95 Oxygen Delivery Oxygen Flow Rate Fraction of Inspired Oxygen 05/06/24 15:07 05/06/24 15:07 05/06/24 15:17 Temperature Pulse Rate 90 95 Respiratory Rate 20 20 Blood Pressure Pulse Oximetry 91 Oxygen Delivery Simple Face Mask Oxygen Flow Rate 5 Fraction of Inspired Oxygen 35 05/06/24 16:00 05/06/24 16:11 05/06/24 19:58 Temperature 98.4 F 100.4 F H Pulse Rate 87 86 100 Respiratory Rate 24 H 18 Blood Pressure 114/63 118/62 Pulse Oximetry 87 L 95 Oxygen Delivery Oxygen Flow Rate Fraction of Inspired Oxygen 05/06/24 20:00 05/06/24 20:00 05/06/24 20:44 Temperature Pulse Rate 98 100 Respiratory Rate Blood Pressure Pulse Oximetry 95 Oxygen Delivery Nasal Cannula Oxygen Flow Rate 5 Fraction of Inspired Oxygen 05/06/24 22:00 05/06/24 23:24 05/07/24 00:00 Temperature 99.3 F Pulse Rate 80 80 Respiratory Rate 18 Blood Pressure 114/45 L Pulse Oximetry 91 95 Oxygen Delivery Nasal Cannula Oxygen Flow Rate 5 Fraction of Inspired Oxygen 05/07/24 00:00 05/07/24 02:30 05/07/24 02:43 Temperature Pulse Rate 76 99 99 Respiratory Rate 16 16 Blood Pressure Pulse Oximetry Oxygen Delivery Oxygen Flow Rate Fraction of Inspired Oxygen 05/07/24 03:37 05/07/24 04:00 05/07/24 04:00 Temperature 98.4 F Pulse Rate 69 69 Respiratory Rate 20 Blood Pressure 129/42 L Pulse Oximetry 94 94 Oxygen Delivery Nasal Cannula Oxygen Flow Rate 5 Fraction of Inspired Oxygen 05/07/24 05:29 05/07/24 07:20 05/07/24 07:20 Temperature Pulse Rate 70 94 94 Respiratory Rate 18 18 Blood Pressure Pulse Oximetry 93 Oxygen Delivery High Flow Nasal Cannula Oxygen Flow Rate 5 Fraction of Inspired Oxygen 05/07/24 07:30 05/07/24 08:17 Temperature 98.9 F Pulse Rate 96 58 L Respiratory Rate 18 20 Blood Pressure 117/36 L Pulse Oximetry 100 Oxygen Delivery Oxygen Flow Rate Fraction of Inspired Oxygen Intake/Output Intake/Output: Intake & Output 05/04/24 05/05/24 05/06/24 05/07/24 23:59 23:59 23:59 23:59 Intake Total 3999 315 0609 420 Output Total 850 2600 400 500 Balance 920 -1670 1480 -80 Meds/Results Medications: Active Medications Generic Name Dose Route Start Last Admin Trade Name Freq PRN Reason Stop Dose Admin Acetaminophen 650 mg 05/01/24 07:08 05/06/24 20:44 Acetaminophen 325 Mg Tablet PO 650 mg Q4H PRN Administration Mild Pain (1-3) or Fever Apixaban 5 mg 05/04/24 21:00 05/06/24 20:45 Apixaban 5 Mg Tablet PO 5 mg Q12HR TYREL Administration Azithromycin 500 mg 05/04/24 09:00 05/06/24 08:36 Azithromycin 250 Mg Tablet PO 500 mg DAILY TYREL Administration Dextrose 12.5 gm 05/01/24 18:45 05/04/24 05:02 Dextrose 50% 25 Gm/50 Ml Syringe IV PUSH 12.5 gm PRN PRN Administration Hypoglycemia Protocol Gabapentin 300 mg 05/01/24 19:55 05/06/24 17:53 Gabapentin 300 Mg Capsule PO 300 mg TID TYREL Administration Glucagon 1 mg 05/01/24 18:45 Glucagon For Inj 1 Mg Vial IM PRN PRN Hypoglycemia Protocol Glucose 15 gm 05/01/24 18:45 05/04/24 08:29 Glucose Oral Gel 15 Gm Of Glucse In 37.5 Gm Tube PO 15 gm PRN PRN Administration Hypoglycemia Protocol Guaifenesin 1,200 mg 05/04/24 09:00 05/06/24 20:43 Guaifenesin 12 Hr 600 Mg Tabcr PO 1,200 mg Q12HR TYREL Administration Dextrose 1,000 mls @ 100 mls/hr 05/01/24 18:45 Dextrose 5% 1,000 Ml IVPB PRN PRN Hypoglycemia Protocol Ceftriaxone Sodium 1 gm in 50 mls @ 100 mls/hr 05/02/24 07:00 05/07/24 06:57 Rocephin 1 Gm/Ns 50 Ml IVPB 100 mls/hr Q24H TYREL Administration Insulin Aspart 3 - 6 units 05/02/24 08:00 05/06/24 17:51 Insulin Aspart (*Bkc) 100 Units/Ml SUB-Q 6 units TIDWM TYREL Administration Protocol Insulin Aspart 1 - 3 units 05/01/24 21:00 05/06/24 20:47 Insulin Aspart (*Bkc) 100 Units/Ml SUB-Q Not Given HS TYREL Protocol Insulin Glargine 15 units 05/04/24 09:00 05/06/24 17:53 Insulin Glargine (*Bkc) 100 Units/Ml SUB-Q 15 units BID TYREL Administration Levalbuterol HCl 1.25 mg 05/05/24 16:00 05/07/24 07:20 Levalbuterol Neb 1.25 Mg/3 Ml INHALATION 1.25 mg Q8HRT TYREL Administration Ondansetron HCl 4 mg 05/01/24 07:08 05/03/24 15:32 Ondansetron Inj 4 Mg/2 Ml Vial IV PUSH 4 mg Q4H PRN Administration Nausea Oxycodone HCl 5 mg 05/05/24 14:00 05/07/24 02:19 Oxycodone Hcl (*Crx) 5 Mg Tab Ir PO Not Given Q6H TYREL Perflutren Lipid Microsphere 0 ml 05/05/24 08:55 Perflutren Lipid Microspheres 1.5 Ml Vial Diluted To 10 Ml Total Volume IV PUSH 05/08/24 08:56 ONCE PRN adequate visualization Protocol Polyethylene Glycol 17 gm 05/04/24 09:25 05/06/24 08:36 Polyethylene Glycol 3350 17 Gm Powd.Pack PO 17 gm QAM TYREL Administration Sotalol HCl 80 mg 05/06/24 21:00 05/06/24 20:44 Sotalol Hcl 80 Mg Tablet PO 80 mg Q12HR TYREL Administration Radiology Results: ITS Impressions Chest CTA 05/01/24 05:40 Impression: Diffusely increased density of the left breast with extensive left breast skin thickening. Appearance raises the possibility of inflammatory breast carcinoma. Asymmetric fluid overload would be a potential alternative consideration. Physical exam and possible mammographic workup recommended, if clinically indicated and not recently performed. There is airspace consolidation the peripheral left upper lobe and right middle lobe, which could reflect areas of atelectasis versus pneumonia. Correlate clinically. Peripheral airspace disease in the left upper lobe, suggestive of possible postradiation change versus additional pneumonia. Abdomen X-Ray 05/03/24 15:40 IMPRESSION: No significant fecal stasis, as detailed above. Chest X-Ray 05/05/24 10:02 IMPRESSION: 1. No change in patchy airspace opacities throughout the left lung and in the right lower lung zone which could represent atelectasis or pneumonia. Labs Labs: Laboratory Results - last 24 hr 05/06/24 05/06/24 05/06/24 11:44 17:48 20:01 POC Capillary Glucose 332 H 403 H 401 H 05/06/24 05/07/24 23:01 07:34 POC Capillary Glucose 237 H 109 H Quality VTE Prophylaxis VTE prophylaxis: pharmacologic ordered -Patient's previous records reviewed on admission -ER notes reviewed in detail on admission -discussed all findings and current treatment plan with patient/Family/POA -Consultations reviewed for recommendations -Patient's disposition for safe discharge discussed with director case management Dictation performed by [employer] direct speech recognition software, therefore nutrition intern variants and typographical errors may occur. Hospitalist [facility] Advance Care Plan I have confirmed that the patient's Advanced Care Plan is present, code status is documented, or surrogate decision maker is listed in patient medical record.: Yes Medication Reconciliation I have utilized all available resources to obtain, update and review the patients current medications (includes all prescriptions, OTC, herbals, cannabis, and nutritional supplements).: Yes The patient is not eligible for med reconciliation; the patient is in a emergent medical situation where delaying treatment would jeopardize the patients health.: No
[2024-05-07] MEDS: GABAPENTIN 300 MG CAPSULE PO ×3 (09:36→17:04)
[2024-05-07] MEDS: SOTALOL HCL 80 MG TABLET PO ×2 (09:36→21:23)
[2024-05-07] MEDS: AZITHROMYCIN 250 MG TABLET 500 MG PO (09:37)
[2024-05-07] MEDS: guaiFENesin 12 HR 600 MG TABCR 1200 MG PO ×2 (09:37→21:23)
[2024-05-07] MEDS: APIXABAN 5 MG TABLET PO ×2 (09:37→21:23)
[2024-05-07] MEDS: INSULIN GLARGINE (*BKC) 100 UNITS/ML 15 UNITS SUB-Q ×2 (09:38→17:04)
--- NOTE | 2024-05-07 09:57 | PCPTNOTE ---
On 05/07/24, the student, CHRISTAL Arreguin, provided care and completed [facility] documentation on this patient. I have reviewed the student's documentation and agree with the findings.
[2024-05-07 11:23] LABS: Hematocrit 31.9 % (37.0-47.0); Mean Corpuscular HGB Conc 31.3 g/dl (32-36); Mean Corpuscular Hemoglobin 30.5 pg (26-34); Mean Corpuscular Volume 97.3 fl (80-100); Mean Platelet Volume 11.1 fl (7.4-10.4); Platelet Count Result 199 k/mm3 (150-375); Red Blood Count 3.28 M/mm3 (4.2-5.4); Red Cell Distribution Width 14.2 % (11.5-14.5); White Blood Count 8.5 K/mm3 (4.5-10.0)
--- NOTE | 2024-05-07 11:35 | ECG_ITS ---
Test Date: 2024-05-07 11:44:44 Measurements Intervals [place] Rate: 67 P: 55 ID: [id number] QRS: -4 QRSD: 79 T: 14 QT: 403 QTc: 426 Interpretive Statements SINUS RHYTHM DELAYED PRECORDIAL R/S TRANSITION CONSIDER INFERIOR INFARCT, AGE INDETERMINATE ABNORMAL ECG Compared to ECG 05/07/2024 09:11:43 NO SIGNIFICANT CHANGE Electronically Signed On 05-07-2024 11:48:19 S[employer]IOR SOFTWARE [employer] by Mejia Fulton D.O.
[2024-05-07 11:38] LABS: Alanine Aminotransferase 44 U/L (6-35); Albumin Level 2.7 g/dL (3.5-5.1); Alkaline Phosphatase 139 U/L (38-126); Anion Gap 5 mmol/L (4-12); Aspartate Amino Transferase 44 U/L (14-36); Bilirubin,Total 0.5 mg/dL (0.2-1.3); Blood Urea Nitrogen 22 mg/dL (7-17); Calcium 8.4 mg/dL (8.4-10.2); Carbon Dioxide 31 mmol/L (22-30); Chloride 99 mmol/L (98-107); Estimated CRCL calculation 34 ml/min; Estimated Glomerular Filt Rate 42; Glucose 191 mg/dL (65-110); Potassium 3.9 mmol/L (3.4-5.0); Sodium 135 mmol/L (137-145)
[2024-05-07 12:11] LABS: Glucose Point of Care 173 mg/dl (65-105)
[2024-05-07 15:57] LABS: Glucose Point of Care 239 mg/dl (65-105)
[2024-05-07] MEDS: INSULIN ASPART (*BKC) 100 UNITS/ML SUB-Q ×2 (17:05→21:23)
[2024-05-07 20:49] LABS: Glucose Point of Care 358 mg/dl (65-105)
--- NOTE | 2024-05-07 23:24 | ECG_ITS ---
Test Date: 2024-05-07 23:31:01 Measurements Intervals [place] Rate: 68 P: 65 [place]: 157 QRS: 3 QRSD: 82 T: 18 QT: 406 QTc: 433 Interpretive Statements SINUS RHYTHM CONSIDER INFERIOR INFARCT, AGE INDETERMINATE ABNORMAL ECG Compared to ECG 05/07/2024 11:44:44 NO SIGNIFICANT CHANGE Electronically Signed On 05-08-2024 06:28:29 BUSINESS DATABASE ANALYST by Mejia Fulton D.O.
[2024-05-08] VITALS (26 sets, daily range): BP systolic 118–127; BP diastolic 36–60; PULSE 54–71; RESP 16–20; TEMP 36.8–37.8; O2SAT 90–100
[2024-05-08] MEDS: LEVALBUTEROL NEB 1.25 MG/3 ML INHALATION ×4 (00:34→23:57)
[2024-05-08 05:03] LABS: Hematocrit 33.9 % (37.0-47.0); Hemoglobin 10.8 g/dL (12.0-15.0); Mean Corpuscular HGB Conc 31.9 g/dl (32-36); Mean Corpuscular Hemoglobin 30.9 pg (26-34); Mean Corpuscular Volume 97.1 fl (80-100); Mean Platelet Volume 10.9 fl (7.4-10.4); Platelet Count Result 225 k/mm3 (150-375); Red Blood Count 3.49 M/mm3 (4.2-5.4); Red Cell Distribution Width 14.1 % (11.5-14.5); White Blood Count 7.5 K/mm3 (4.5-10.0)
[2024-05-08 05:32] LABS: Alanine Aminotransferase 64 U/L (6-35); Albumin Level 2.8 g/dL (3.5-5.1); Alkaline Phosphatase 154 U/L (38-126); Anion Gap 8 mmol/L (4-12); Aspartate Amino Transferase 59 U/L (14-36); Bilirubin,Total 0.6 mg/dL (0.2-1.3); Blood Urea Nitrogen 25 mg/dL (7-17); Calcium 8.7 mg/dL (8.4-10.2); Carbon Dioxide 29 mmol/L (22-30); Chloride 102 mmol/L (98-107); Estimated CRCL calculation 33 ml/min; Estimated Glomerular Filt Rate 40; Glucose 68 mg/dL (65-110); Sodium 139 mmol/L (137-145)
[2024-05-08 07:29] LABS: Glucose Point of Care 43 mg/dl (65-105)
[2024-05-08] MEDS: DEXTROSE 50% 25 GM/50 ML SYRINGE IV PUSH (07:31)
[2024-05-08 08:06] LABS: Glucose Point of Care 136 mg/dl (65-105)
[2024-05-08] MEDS: SOTALOL HCL 80 MG TABLET PO ×2 (08:39→21:01)
[2024-05-08] MEDS: guaiFENesin 12 HR 600 MG TABCR 1200 MG PO ×2 (08:39→21:00)
[2024-05-08] MEDS: APIXABAN 5 MG TABLET PO ×2 (08:39→21:01)
[2024-05-08] MEDS: GABAPENTIN 300 MG CAPSULE PO ×3 (08:57→16:54)
--- NOTE | 2024-05-08 09:27 | P.PNIM_ITS ---
Progress Note: A&P Assessment and Plan (1) Acute respiratory failure with hypoxia: Code(s): J96.01 - Acute respiratory failure with hypoxia Status: Acute Assessment and Plan: patient presented to the emergency department with generalized weakness after being diagnosed with influenza a chest x-ray suggestive pneumonia time of admission she was requiring 3 L nasal cannula of supplemental oxygen to maintain 92% patient does not wear oxygen at home likely secondary to COPD and pneumonia as well as influenza. * azithromycin and Rocephin also received 1 dose of vancomycin * CTA negative for PE/airspace consolidation the peripheral left upper lobe and right middle lobe, which could reflect areas of atelectasis versus pneumonia. * blood cultures grew staph capitis x1 bottle Likely contaminated * DuoNebs * incentive spirometer * mucolytics * antipyretics * wean oxygen as tolerated * repeat blood cultures with no growth to date 05/05 * Increased oxygen demands multifocal AFIB, CHF?, respiratory depression from narcotics * IVP Lasix 40mg x 1 * IVP metoprolol 5mg IVP * on 5L NC 05/06: * Patient doing better with Venturi mask at 5 L NC 05/07: * Continue to wean oxygen still on 6L * May need home 02 evaluation prior to discharge (2) Pneumonia: Code(s): J18.9 - Pneumonia, unspecified organism Status: Acute Assessment and Plan: SEE ABOVE #1 (3) Paroxysmal atrial fibrillation: Code(s): I48.0 - Paroxysmal atrial fibrillation Status: Acute Assessment and Plan: Patient in AFIB RVR on arrival to the ED HR 152 * Cardizem IV 10 mg in ED * Resumed Cardizem PO 120 * HR controlled today * Had been on Eliquis before unsure why it was stopped denies any HX of GI bleed or hemorrhagic stroke * CHADVASC 4 * Started patient back on Eliquis BID 05/05: * Patient flipped into AFIB with RVR with peaked at 161 * Metoprolol 5mg IVP with improvement and received her oral Cardizem * EKG reviewed * continuous cardiac monitoring * Echo pending 05/06: * HR controlled at 80 SR today * Plan to start sotalol * D/C Cardizem 05/07: * SR on sotalol * EKG: Qtc 426 05/08: * EKG QTC 433 * SR 64 (4) Pulmonary congestion: Code(s): R09.89 - Other specified symptoms and signs involving the circulatory and respiratory systems Status: Acute Assessment and Plan: No HX of CHF * BNP 1800 * CXR atelectasis versus pneumonia versus pulmonary congestion * Lasix x 1 40mg IVP * Echo pending 05/06: * LVEF 65-70%/AFIB/mild pulmonary HTN (5) Insulin dependent type 2 diabetes mellitus: Code(s): E11.9 - Type 2 diabetes mellitus without complications; Z79.4 - correction (current) use of insulin Status: Acute Assessment and Plan: patient did have an episode of hypoglycemia as low as 40 protocol followed inpatient back to 115 * Accu-Cheks a.c. HS * sliding scale insulin * hold oral diabetic medications * resume patient's home long-acting was at 18 BID then bumped to 20 now lowered to 15 BID * Diabetic diet * Optimize Akin inhibitors and statins. * Watch for hypoglycemia/hypoglycemic protocol ordered 05/08: * Patient hypoglycemia 45 this am Evelyn phenomenon * will change long acting insulin to 25 u daily instead of BID appears to be hypoglycemic in the AM * Encourage snack at bedtime (6) Adv eff opiates: Code(s): T40.605A - Adverse effect of unspecified narcotics, initial encounter Status: Acute Assessment and Plan: Patient home dose is percocet 10mg Q4prn for pain, somnolence, hypoxic, and only minimal response to stimuli * Narcan x1 with overall improvement * decreased home dose * encourage non-narcotics for pain relief (7) Chronic obstructive pulmonary disease: Code(s): J44.9 - Chronic obstructive pulmonary disease, unspecified Status: Acute Assessment and Plan: patient is a current everyday smoker history of COPD * Bronchodilators. * CTA reviewed per above #1 * incentive spirometry while awake. * azithromycin 500 PO * supplemental oxygen therapy to maintain oxygen 92% * Evaluation from home O2 if saturation less than 88% on room air. * Smoking cessation counseling done (8) Thrombocytopenia: Code(s): D69.6 - Thrombocytopenia, unspecified Status: Resolved Assessment and Plan: * Likely secondary to infection * monitor daily * no need for PLT transfusion at this time RESOLVED PLT 199 (9) Tobacco dependence: Code(s): F17.200 - Nicotine dependence, unspecified, uncomplicated Status: Acute Assessment and Plan: * current smoker * smoking cessation education (10) Constipation: Code(s): K59.00 - Constipation, unspecified Status: Acute Assessment and Plan: * ABD XRAY no acute findings or fecal stasis * Bowel regimen (11) Abnormal finding on CT scan: Code(s): R93.89 - Abnormal findings on diagnostic imaging of other specified body structures Status: Acute Assessment and Plan: Diffusely increased density of the left breast with extensive left breast skin thickening. Appearance raises the possibility of inflammatory breast carcinoma. Asymmetric fluid overload would be a potential alternative consideration. * No recent mammogram on file * will need follow-up mammogram O/P Plan Code status: Full code per patient DVT prophylaxis: Eliquis Stress ulcer prophylaxis: Protonix 40 daily PT/OT notes: PT/OT Disposition: patient continues admission for acute respiratory failure with hypoxia secondary to pneumonia, influenza, COPD exacerbation, AFIB RVR and patient did have episode of hypoglycemia this a.m. improved with hypoglycemic protocol will continue to wean oxygen as tolerated. Day 2 on sotalol remains in sinus rhythm QTC 433. Patient is already 6 L oxygen will need oxygen walk study prior to discharge. Time Spent With Patient Time with patient: 15 - 25 minutes Subjective Date/time seen: 05/08/24 09:27 Interval history: Patient is a 73-year-old female who was admitted evaluation and treatment AFib with RVR, pneumonia, influenza and now bacteremia. 05/08/2024: Patient hypoglycemia this am 45 responded to D50 asymptomatic. Patient Lantus b.i.d. and transition to just daily dose. Last QTC 433. Patient feeling better today and reporting an appetite up in chair denies CP or SOB but still on 6L but was able to decrease to 5L. Review of Systems Review of Systems: All systems reviewed & are unremarkable except as noted in HPI and below Exam Narrative: * GENERAL: Alert and oriented x 3. No acute distress. * EYES: PERRLA. * HEENT: Moist mucous membranes. * LUNGS: Diminished auscultation bilaterally. No accessory muscle use. on 5L NC * CARDIOVASCULAR: SR. No murmur. * ABDOMEN: Soft, non tenderness and non-distended. * EXTREMITIES: No edema. Non-tender * SKIN: No rashes or lesions. Skin warm, dry. * NEUROLOGIC: No focal neurological deficits. CN II-XII grossly intact * PSYCHIATRIC: Appropriate mood and affect. Good judgement and insight. Objective Data Vital Signs Vital Signs: Vital Signs - 24 hr 05/07/24 09:36 05/07/24 10:00 05/07/24 11:53 Temperature 98.7 F Pulse Rate 69 68 66 Respiratory Rate 20 Blood Pressure 121/42 L Pulse Oximetry 98 Oxygen Delivery Oxygen Flow Rate 05/07/24 12:00 05/07/24 12:00 05/07/24 14:00 Temperature Pulse Rate 71 64 Respiratory Rate Blood Pressure Pulse Oximetry 93 Oxygen Delivery High Flow Nasal Cannula Oxygen Flow Rate 5 05/07/24 16:00 05/07/24 16:00 05/07/24 16:29 Temperature 99.2 F Pulse Rate 68 66 Respiratory Rate 20 Blood Pressure 118/35 L Pulse Oximetry 94 95 Oxygen Delivery High Flow Nasal Cannula Oxygen Flow Rate 5 05/07/24 18:00 05/07/24 20:00 05/07/24 20:00 Temperature Pulse Rate 69 72 Respiratory Rate Blood Pressure Pulse Oximetry 94 Oxygen Delivery High Flow Nasal Cannula Oxygen Flow Rate 5 05/07/24 20:06 05/07/24 21:23 05/07/24 22:00 Temperature 97.6 F Pulse Rate 70 68 75 Respiratory Rate 20 Blood Pressure 125/40 L Pulse Oximetry 92 Oxygen Delivery Oxygen Flow Rate 05/07/24 23:00 05/07/24 23:59 05/08/24 00:00 Temperature 99.1 F Pulse Rate 68 Respiratory Rate 20 Blood Pressure 136/40 L Pulse Oximetry 97 92 94 Oxygen Delivery High Flow Nasal Cannula High Flow Nasal Cannula Oxygen Flow Rate 5 5 05/08/24 00:00 05/08/24 00:34 05/08/24 00:40 Temperature Pulse Rate 66 66 68 Respiratory Rate 18 18 Blood Pressure Pulse Oximetry Oxygen Delivery Oxygen Flow Rate 05/08/24 02:00 05/08/24 03:56 05/08/24 04:00 Temperature 98.4 F Pulse Rate 67 61 Respiratory Rate 18 Blood Pressure 127/42 L Pulse Oximetry 95 92 Oxygen Delivery High Flow Nasal Cannula Oxygen Flow Rate 5 05/08/24 04:00 05/08/24 06:00 05/08/24 07:49 Temperature 98.3 F Pulse Rate 59 L 57 L 57 L Respiratory Rate 18 Blood Pressure 122/43 L Pulse Oximetry 96 Oxygen Delivery Oxygen Flow Rate 05/08/24 08:39 05/08/24 09:09 05/08/24 09:09 Temperature Pulse Rate 63 63 Respiratory Rate 20 Blood Pressure Pulse Oximetry 90 Oxygen Delivery Nasal Cannula Oxygen Flow Rate 6 05/08/24 09:17 Temperature Pulse Rate 64 Respiratory Rate 20 Blood Pressure Pulse Oximetry Oxygen Delivery Oxygen Flow Rate Intake/Output Intake/Output: Intake & Output 05/05/24 05/06/24 05/07/24 05/08/24 23:59 23:59 23:59 23:59 Intake Total 930 1880 1150 490 Output Total 2600 400 850 300 Balance -1670 1480 300 190 Meds/Results Medications: Active Medications Generic Name Dose Route Start Last Admin Trade Name Freq PRN Reason Stop Dose Admin Acetaminophen 650 mg 05/01/24 07:08 05/06/24 20:44 Acetaminophen 325 Mg Tablet PO 650 mg Q4H PRN Administration Mild Pain (1-3) or Fever Apixaban 5 mg 05/04/24 21:00 05/08/24 08:39 Apixaban 5 Mg Tablet PO 5 mg Q12HR TYREL Administration Dextrose 12.5 gm 05/01/24 18:45 05/08/24 07:31 Dextrose 50% 25 Gm/50 Ml Syringe IV PUSH 12.5 gm PRN PRN Administration Hypoglycemia Protocol Gabapentin 300 mg 05/01/24 19:55 05/08/24 08:57 Gabapentin 300 Mg Capsule PO 300 mg TID TYREL Administration Glucagon 1 mg 05/01/24 18:45 Glucagon For Inj 1 Mg Vial IM PRN PRN Hypoglycemia Protocol Glucose 15 gm 05/01/24 18:45 05/04/24 08:29 Glucose Oral Gel 15 Gm Of Glucse In 37.5 Gm Tube PO 15 gm PRN PRN Administration Hypoglycemia Protocol Guaifenesin 1,200 mg 05/04/24 09:00 05/08/24 08:39 Guaifenesin 12 Hr 600 Mg Tabcr PO 1,200 mg Q12HR TYREL Administration Dextrose 1,000 mls @ 100 mls/hr 05/01/24 18:45 Dextrose 5% 1,000 Ml IVPB PRN PRN Hypoglycemia Protocol Ceftriaxone Sodium 1 gm in 50 mls @ 100 mls/hr 05/02/24 07:00 05/08/24 06:34 Rocephin 1 Gm/Ns 50 Ml IVPB 100 mls/hr Q24H TYREL Administration Insulin Aspart 3 - 6 units 05/02/24 08:00 05/08/24 08:53 Insulin Aspart (*Bkc) 100 Units/Ml SUB-Q Not Given TIDWM TYREL Protocol Insulin Aspart 1 - 3 units 05/01/24 21:00 05/07/24 21:23 Insulin Aspart (*Bkc) 100 Units/Ml SUB-Q 3 units HS TYREL Administration Protocol Levalbuterol HCl 1.25 mg 05/05/24 16:00 05/08/24 09:09 Levalbuterol Neb 1.25 Mg/3 Ml INHALATION 1.25 mg Q8HRT TYREL Administration Ondansetron HCl 4 mg 05/01/24 07:08 05/03/24 15:32 Ondansetron Inj 4 Mg/2 Ml Vial IV PUSH 4 mg Q4H PRN Administration Nausea Oxycodone HCl 5 mg 05/05/24 14:00 05/08/24 08:50 Oxycodone Hcl (*Crx) 5 Mg Tab Ir PO Not Given Q6H TYREL Polyethylene Glycol 17 gm 05/04/24 09:25 05/08/24 08:51 Polyethylene Glycol 3350 17 Gm Powd.Pack PO Not Given QAM TYREL Sotalol HCl 80 mg 05/06/24 21:00 05/08/24 08:39 Sotalol Hcl 80 Mg Tablet PO 80 mg Q12HR TYREL Administration Radiology Results: ITS Impressions Chest CTA 05/01/24 05:40 Impression: Diffusely increased density of the left breast with extensive left breast skin thickening. Appearance raises the possibility of inflammatory breast carcinoma. Asymmetric fluid overload would be a potential alternative consideration. Physical exam and possible mammographic workup recommended, if clinically indicated and not recently performed. There is airspace consolidation the peripheral left upper lobe and right middle lobe, which could reflect areas of atelectasis versus pneumonia. Correlate clinically. Peripheral airspace disease in the left upper lobe, suggestive of possible postradiation change versus additional pneumonia. Abdomen X-Ray 05/03/24 15:40 IMPRESSION: No significant fecal stasis, as detailed above. Chest X-Ray 05/05/24 10:02 IMPRESSION: 1. No change in patchy airspace opacities throughout the left lung and in the right lower lung zone which could represent atelectasis or pneumonia. Labs Labs: Laboratory Results - last 24 hr 05/07/24 05/07/24 05/07/24 11:12 11:34 15:39 WBC 8.5 RBC 3.28 L Hgb 10.0 L Hct 31.9 L MCV 97.3 MCH 30.5 MCHC 31.3 L RDW 14.2 Plt Count 199 MPV 11.1 H Sodium 135 L Potassium 3.9 Chloride 99 Carbon Dioxide 31 H Anion Gap 5 BUN 22 H Creatinine 1.26 H Estim Creat Clear Calc 34 Estimated GFR 42 L Glucose 191 H POC Capillary Glucose 173 H 239 H Calcium 8.4 Total Bilirubin 0.5 AST 44 H ALT 44 H Alkaline Phosphatase 139 H Total Protein 6.0 L Albumin 2.7 L 05/07/24 05/08/24 05/08/24 20:27 04:39 07:13 WBC 7.5 RBC 3.49 L Hgb 10.8 L Hct 33.9 L MCV 97.1 MCH 30.9 MCHC 31.9 L RDW 14.1 Plt Count 225 MPV 10.9 H Sodium 139 Potassium 4.0 Chloride 102 Carbon Dioxide 29 Anion Gap 8 BUN 25 H Creatinine 1.32 H Estim Creat Clear Calc 33 Estimated GFR 40 L Glucose 68 POC Capillary Glucose 358 H 43 L* Calcium 8.7 Total Bilirubin 0.6 AST 59 H ALT 64 H Alkaline Phosphatase 154 H Total Protein 7.0 Albumin 2.8 L 05/08/24 08:04 WBC RBC Hgb Hct MCV MCH MCHC RDW Plt Count MPV Sodium Potassium Chloride Carbon Dioxide Anion Gap BUN Creatinine Estim Creat Clear Calc Estimated GFR Glucose POC Capillary Glucose 136 H Calcium Total Bilirubin AST ALT Alkaline Phosphatase Total Protein Albumin Quality VTE Prophylaxis VTE prophylaxis: pharmacologic ordered -Patient's previous records reviewed on admission -ER notes reviewed in detail on admission -discussed all findings and current treatment plan with patient/Family/POA -Consultations reviewed for recommendations -Patient's disposition for safe discharge discussed with director of casework services Dictation performed by [employer] direct speech recognition software, therefore scorer helper variants and typographical errors may occur. Hospitalist MIPS Advance Care Plan I have confirmed that the patient's Advanced Care Plan is present, code status is documented, or surrogate decision maker is listed in patient medical record.: Yes Medication Reconciliation I have utilized all available resources to obtain, update and review the patients current medications (includes all prescriptions, OTC, herbals, cannabis, and nutritional supplements).: Yes The patient is not eligible for med reconciliation; the patient is in a emergent medical situation where delaying treatment would jeopardize the patients health.: No
--- NOTE | 2024-05-08 10:41 | ECG_ITS ---
Test Date: 2024-05-08 10:48:25 Measurements Intervals [place] Rate: 52 P: 28 MS: 159 QRS: -1 QRSD: 86 T: 3 QT: 479 QTc: 447 Interpretive Statements SINUS BRADYCARDIA WITH SINUS ARRHYTHMIA LOW QRS VOLTAGE IN PRECORDIAL LEADS POSSIBLE ANTERIOR MYOCARDIAL INFARCTION , OF INDETERMINATE AGE CONSIDER INFERIOR INFARCT, AGE INDETERMINATE BASELINE WANDER- II, III, V3-V6 ABNORMAL ECG Compared to ECG 05/07/2024 23:31:01 HEART RATE HAS DECREASED Electronically Signed On 05-08-2024 10:52:43 [employer] by Mejia Fulton D.O.
[2024-05-08 11:45] LABS: Glucose Point of Care 254 mg/dl (65-105)
[2024-05-08] MEDS: INSULIN ASPART (*BKC) 100 UNITS/ML SUB-Q ×3 (12:18→21:01)
--- NOTE | 2024-05-08 13:30 | PM.PNCARD ---
Progress Note: A&P Assessment and Plan (1) Paroxysmal atrial fibrillation: Code(s): I48.0 - Paroxysmal atrial fibrillation Status: Acute Plan 73-year-old woman with COPD, active tobacco user, and paroxysmal atrial fibrillation who was admitted for management of pneumonia was found to have paroxysmal atrial fibrillation with rapid ventricular rates Paroxysmal atrial fibrillation -currently in sinus with rhythm controlled by sotalol 80 mg p.o. q.12 hours -repeat EKG to assess QTC 2 hours post sotalol administration x 5 doses - tonight's dose will be 5th dose -continue Eliquis -QTc remains stable. Iff stable following 5th dose EKG, can be discharged from a cardiology perspective. Subjective Date/time seen: 05/08/24 13:30 Interval history: Cardiology follow up visit She is feeling well today. Breathing is better. Remains in sinus rhythm. Review of Systems Constitutional: Constitutional: Reports no additional constitutional complaints Eyes: Eyes: Reports no additional eye complaints ENT: Reports system reviewed and no additional complaints, except as documented Cardiovascular: Cardiovascular: Reports as per HPI and Reports no additional cardiovascular complaints Respiratory: Respiratory: Reports as per HPI and Reports cough Gastrointestinal: Gastrointestinal: Reports no additional gastrointestinal complaints Musculoskeletal: Musculoskeletal: Reports back pain Integumentary/Breasts: Skin/Breast: Reports system reviewed and no additional complaints, except as docu Neurologic: Reports system reviewed and no additional complaints, except as documented Endocrine: Endocrine: Reports no additional endocrine complaints Hematologic/Lymphatic: Hematologic/Lymphatic: Reports no additional hematologic/lymphatic complaints Allergic/Immunologic: Allergic/Immunologic: Reports no additional allergic/immunologic complaints Exam Const: General: comfortable and no acute distress HENMT: Mouth: Yes moist mucous membranes Eyes: Sclera: sclerae normal EOM: EOMs intact bilaterally Neck: Neck: supple and no JVD Resp: Effort & Inspection: normal respiratory effort Other: Few coarse rhonchi are noted no rales no wheeze Cardio: Rate: regular rate Rhythm: regular rhythm Other: No murmur no gallop GI: Auscultation: normal bowel sounds Skin: General skin exam: normal color Neuro: Other: Alert and oriented x3 Extrem: General: no pedal edema Other: No edema, good perfusion Objective Data Vital Signs Vital Signs: Vital Signs - 24 hr 05/07/24 14:00 05/07/24 16:00 05/07/24 16:00 Temperature Pulse Rate 64 68 Respiratory Rate Blood Pressure Pulse Oximetry 94 Oxygen Delivery High Flow Nasal Cannula Oxygen Flow Rate 5 05/07/24 16:29 05/07/24 18:00 05/07/24 20:00 Temperature 37.3 C Pulse Rate 66 69 Respiratory Rate 20 Blood Pressure 118/35 L Pulse Oximetry 95 94 Oxygen Delivery High Flow Nasal Cannula Oxygen Flow Rate 5 05/07/24 20:00 05/07/24 20:06 05/07/24 21:23 Temperature 36.4 C Pulse Rate 72 70 68 Respiratory Rate 20 Blood Pressure 125/40 L Pulse Oximetry 92 Oxygen Delivery Oxygen Flow Rate 05/07/24 22:00 05/07/24 23:00 05/07/24 23:59 Temperature 37.3 C Pulse Rate 75 68 Respiratory Rate 20 Blood Pressure 136/40 L Pulse Oximetry 97 92 Oxygen Delivery High Flow Nasal Cannula Oxygen Flow Rate 5 05/08/24 00:00 05/08/24 00:00 05/08/24 00:34 Temperature Pulse Rate 66 66 Respiratory Rate 18 Blood Pressure Pulse Oximetry 94 Oxygen Delivery High Flow Nasal Cannula Oxygen Flow Rate 5 05/08/24 00:40 05/08/24 02:00 05/08/24 03:56 Temperature 36.9 C Pulse Rate 68 67 61 Respiratory Rate 18 18 Blood Pressure 127/42 L Pulse Oximetry 95 Oxygen Delivery Oxygen Flow Rate 05/08/24 04:00 05/08/24 04:00 05/08/24 06:00 Temperature Pulse Rate 59 L 57 L Respiratory Rate Blood Pressure Pulse Oximetry 92 Oxygen Delivery High Flow Nasal Cannula Oxygen Flow Rate 5 05/08/24 07:49 05/08/24 08:00 05/08/24 08:00 Temperature 36.8 C Pulse Rate 57 L 61 Respiratory Rate 18 Blood Pressure 122/43 L Pulse Oximetry 96 95 Oxygen Delivery Nasal Cannula Oxygen Flow Rate 5 05/08/24 08:39 05/08/24 09:09 05/08/24 09:09 Temperature Pulse Rate 63 63 Respiratory Rate 20 Blood Pressure Pulse Oximetry 90 Oxygen Delivery Nasal Cannula Oxygen Flow Rate 6 05/08/24 09:17 05/08/24 10:00 05/08/24 11:22 Temperature 37.2 C Pulse Rate 64 60 57 L Respiratory Rate 20 20 Blood Pressure 123/36 L Pulse Oximetry 98 Oxygen Delivery Oxygen Flow Rate 05/08/24 12:00 05/08/24 12:00 Temperature Pulse Rate 54 L Respiratory Rate Blood Pressure Pulse Oximetry 93 Oxygen Delivery Nasal Cannula Oxygen Flow Rate 4 Intake/Output Intake/Output: Intake & Output 05/05/24 05/06/24 05/07/24 05/08/24 23:59 23:59 23:59 23:59 Intake Total 930 1880 1150 730 Output Total 2600 400 850 300 Balance -1670 1480 300 430 Meds/Results Medications: Active Medications Generic Name Dose Route Start Last Admin Trade Name Freq PRN Reason Stop Dose Admin Acetaminophen 650 mg 05/01/24 07:08 05/06/24 20:44 Acetaminophen 325 Mg Tablet PO 650 mg Q4H PRN Administration Mild Pain (1-3) or Fever Apixaban 5 mg 05/04/24 21:00 05/08/24 08:39 Apixaban 5 Mg Tablet PO 5 mg Q12HR TYREL Administration Dextrose 12.5 gm 05/01/24 18:45 05/08/24 07:31 Dextrose 50% 25 Gm/50 Ml Syringe IV PUSH 12.5 gm PRN PRN Administration Hypoglycemia Protocol Gabapentin 300 mg 05/01/24 19:55 05/08/24 12:19 Gabapentin 300 Mg Capsule PO 300 mg TID TYREL Administration Glucagon 1 mg 05/01/24 18:45 Glucagon For Inj 1 Mg Vial IM PRN PRN Hypoglycemia Protocol Glucose 15 gm 05/01/24 18:45 05/04/24 08:29 Glucose Oral Gel 15 Gm Of Glucse In 37.5 Gm Tube PO 15 gm PRN PRN Administration Hypoglycemia Protocol Guaifenesin 1,200 mg 05/04/24 09:00 05/08/24 08:39 Guaifenesin 12 Hr 600 Mg Tabcr PO 1,200 mg Q12HR TYREL Administration Dextrose 1,000 mls @ 100 mls/hr 05/01/24 18:45 Dextrose 5% 1,000 Ml IVPB PRN PRN Hypoglycemia Protocol Ceftriaxone Sodium 1 gm in 50 mls @ 100 mls/hr 05/02/24 07:00 05/08/24 06:34 Rocephin 1 Gm/Ns 50 Ml IVPB 100 mls/hr Q24H TYREL Administration Insulin Aspart 3 - 6 units 05/02/24 08:00 05/08/24 12:18 Insulin Aspart (*Bkc) 100 Units/Ml SUB-Q 4 units TIDWM TYREL Administration Protocol Insulin Aspart 1 - 3 units 05/01/24 21:00 05/07/24 21:23 Insulin Aspart (*Bkc) 100 Units/Ml SUB-Q 3 units HS TYREL Administration Protocol Insulin Glargine 25 units 05/09/24 09:00 Insulin Glargine (*Bkc) 100 Units/Ml SUB-Q DAILY TYREL Levalbuterol HCl 1.25 mg 05/05/24 16:00 05/08/24 09:09 Levalbuterol Neb 1.25 Mg/3 Ml INHALATION 1.25 mg Q8HRT TYREL Administration Ondansetron HCl 4 mg 05/01/24 07:08 05/03/24 15:32 Ondansetron Inj 4 Mg/2 Ml Vial IV PUSH 4 mg Q4H PRN Administration Nausea Oxycodone HCl 5 mg 05/05/24 14:00 05/08/24 08:50 Oxycodone Hcl (*Crx) 5 Mg Tab Ir PO Not Given Q6H TYREL Polyethylene Glycol 17 gm 05/04/24 09:25 05/08/24 08:51 Polyethylene Glycol 3350 17 Gm Powd.Pack PO Not Given QAM TYREL Sotalol HCl 80 mg 05/06/24 21:00 05/08/24 08:39 Sotalol Hcl 80 Mg Tablet PO 80 mg Q12HR TYREL Administration Radiology Results: ITS Impressions Chest CTA 05/01/24 05:40 Impression: Diffusely increased density of the left breast with extensive left breast skin thickening. Appearance raises the possibility of inflammatory breast carcinoma. Asymmetric fluid overload would be a potential alternative consideration. Physical exam and possible mammographic workup recommended, if clinically indicated and not recently performed. There is airspace consolidation the peripheral left upper lobe and right middle lobe, which could reflect areas of atelectasis versus pneumonia. Correlate clinically. Peripheral airspace disease in the left upper lobe, suggestive of possible postradiation change versus additional pneumonia. Abdomen X-Ray 05/03/24 15:40 IMPRESSION: No significant fecal stasis, as detailed above. Chest X-Ray 05/05/24 10:02 IMPRESSION: 1. No change in patchy airspace opacities throughout the left lung and in the right lower lung zone which could represent atelectasis or pneumonia. Labs Labs: Laboratory Results - last 24 hr 05/07/24 05/07/24 05/08/24 15:39 20:27 04:39 WBC 7.5 RBC 3.49 L Hgb 10.8 L Hct 33.9 L MCV 97.1 MCH 30.9 MCHC 31.9 L RDW 14.1 Plt Count 225 MPV 10.9 H Sodium 139 Potassium 4.0 Chloride 102 Carbon Dioxide 29 Anion Gap 8 BUN 25 H Creatinine 1.32 H Estim Creat Clear Calc 33 Estimated GFR 40 L Glucose 68 POC Capillary Glucose 239 H 358 H Calcium 8.7 Total Bilirubin 0.6 AST 59 H ALT 64 H Alkaline Phosphatase 154 H Total Protein 7.0 Albumin 2.8 L 05/08/24 05/08/24 05/08/24 07:13 08:04 11:21 WBC RBC Hgb Hct MCV MCH MCHC RDW Plt Count MPV Sodium Potassium Chloride Carbon Dioxide Anion Gap BUN Creatinine Estim Creat Clear Calc Estimated GFR Glucose POC Capillary Glucose 43 L* 136 H 254 H Calcium Total Bilirubin AST ALT Alkaline Phosphatase Total Protein Albumin Quality VTE Prophylaxis VTE prophylaxis: pharmacologic ordered
[2024-05-08 16:06] LABS: Glucose Point of Care 235 mg/dl (65-105)
[2024-05-08 20:38] LABS: Glucose Point of Care 324 mg/dl (65-105)
--- NOTE | 2024-05-08 23:00 | ECG_ITS ---
Test Date: 2024-05-08 23:09:09 Measurements Intervals [place] Rate: 64 P: 58 KS: 158 QRS: 5 QRSD: 77 T: 8 QT: 413 QTc: 428 Interpretive Statements SINUS RHYTHM CONSIDER INFERIOR INFARCT, AGE INDETERMINATE BASELINE ARTIFACT- I, III, AVL, AVF, V6 ABNORMAL ECG Compared to ECG 05/08/2024 10:48:25 HEART RATE HAS INCREASED Electronically Signed On 05-09-2024 07:12:19 [employer]UNITY [employer]TE[employer]ATION [employer]IST by Mejia Fulton D.O.
[2024-05-09] VITALS (26 sets, daily range): BP systolic 109–120; BP diastolic 45–47; PULSE 51–82; RESP 16–20; TEMP 36.7–37.1; O2SAT 87–100
[2024-05-09 04:59] LABS: Hemoglobin 9.6 g/dL (12.0-15.0); Mean Corpuscular Hemoglobin 30.6 pg (26-34); Mean Corpuscular Volume 98.7 fl (80-100); Mean Platelet Volume 10.5 fl (7.4-10.4); Platelet Count Result 225 k/mm3 (150-375); Red Blood Count 3.14 M/mm3 (4.2-5.4); Red Cell Distribution Width 14.3 % (11.5-14.5); White Blood Count 6.5 K/mm3 (4.5-10.0)
[2024-05-09 05:46] LABS: Alanine Aminotransferase 110 U/L (6-35); Albumin Level 2.7 g/dL (3.5-5.1); Alkaline Phosphatase 169 U/L (38-126); Anion Gap 6 mmol/L (4-12); Aspartate Amino Transferase 92 U/L (14-36); Bilirubin,Total 0.5 mg/dL (0.2-1.3); Blood Urea Nitrogen 26 mg/dL (7-17); Calcium 8.5 mg/dL (8.4-10.2); Carbon Dioxide 27 mmol/L (22-30); Chloride 104 mmol/L (98-107); Estimated CRCL calculation 31 ml/min; Estimated Glomerular Filt Rate 37; Glucose 142 mg/dL (65-110); Potassium 3.9 mmol/L (3.4-5.0); Sodium 137 mmol/L (137-145)
[2024-05-09] MEDS: WATER FOR IRRIGATION, STERILE 1,000 ML BOTTLE 1000 ML (06:34)
[2024-05-09 08:01] LABS: Glucose Point of Care 130 mg/dl (65-105)
[2024-05-09] MEDS: LEVALBUTEROL NEB 1.25 MG/3 ML INHALATION ×2 (08:31→15:10)
[2024-05-09] MEDS: APIXABAN 5 MG TABLET PO (09:09)
[2024-05-09] MEDS: guaiFENesin 12 HR 600 MG TABCR 1200 MG PO (09:09)
[2024-05-09] MEDS: GABAPENTIN 300 MG CAPSULE PO ×2 (09:09→11:34)
[2024-05-09] MEDS: SOTALOL HCL 80 MG TABLET PO (09:09)
[2024-05-09] MEDS: INSULIN GLARGINE (*BKC) 100 UNITS/ML 25 UNITS SUB-Q (09:12)
--- NOTE | 2024-05-09 10:32 | PCNWS ---
Weekly nutritional screen. Patient is tolerating current diet with adequate intake. No weight loss reported. No nutritional needs at this time.
[2024-05-09] MEDS: INSULIN ASPART (*BKC) 100 UNITS/ML SUB-Q (11:33)
--- NOTE | 2024-05-09 11:42 | PM.PNCARD ---
Progress Note: A&P Assessment and Plan (1) Paroxysmal atrial fibrillation: Code(s): I48.0 - Paroxysmal atrial fibrillation Status: Acute Plan 73-year-old woman with COPD, active tobacco user, and paroxysmal atrial fibrillation who was admitted for management of Influenza pneumonia was found to have paroxysmal atrial fibrillation with rapid ventricular rates Paroxysmal atrial fibrillation with RVR -currently in sinus with rhythm controlled by sotalol 80 mg p.o. q.12 hours -Has received 5 doses of Sotalol in the hospital and EKGs have been stable. -continue Eliquis 5mg BID. Okay to discharge home from a cardiac standpoint. Cardiology will sign off. Please call us back if needed. Will arrange follow up in our office. Subjective Date/time seen: 05/09/24 11:42 Interval history: Reason for visit: AFIB Feeling better today. Remains in sinus. Review of Systems Cardiovascular: Cardiovascular: Reports as per HPI Exam Const: General: no acute distress HENMT: Mouth: Yes moist mucous membranes Eyes: General: appearance normal, both eyes and all related structures Sclera: sclerae normal Resp: Effort & Inspection: normal respiratory effort Cardio: Rate: regular rate Rhythm: regular rhythm Skin: General skin exam: normal color Psych: Mental Status: mental status grossly normal Affect: normal affect Objective Data Vital Signs Vital Signs: Vital Signs - 24 hr 05/08/24 12:00 05/08/24 12:00 05/08/24 14:00 Temperature Pulse Rate 54 L 61 Respiratory Rate Blood Pressure Pulse Oximetry 93 Oxygen Delivery Nasal Cannula Oxygen Flow Rate 4 05/08/24 15:09 05/08/24 16:00 05/08/24 16:00 Temperature 37.1 C Pulse Rate 62 63 Respiratory Rate 20 Blood Pressure 127/60 Pulse Oximetry 100 100 Oxygen Delivery Nasal Cannula Oxygen Flow Rate 3 05/08/24 16:28 05/08/24 18:00 05/08/24 20:00 Temperature Pulse Rate 59 L 66 Respiratory Rate 20 Blood Pressure Pulse Oximetry 92 Oxygen Delivery High Flow Nasal Cannula Oxygen Flow Rate 3 05/08/24 20:00 05/08/24 20:12 05/08/24 21:01 Temperature 37.2 C Pulse Rate 67 66 65 Respiratory Rate 20 Blood Pressure 122/46 L Pulse Oximetry 93 Oxygen Delivery Oxygen Flow Rate 05/08/24 22:00 05/08/24 23:11 05/08/24 23:57 Temperature 37.8 C H Pulse Rate 71 63 Respiratory Rate 20 Blood Pressure 118/44 L Pulse Oximetry 91 96 Oxygen Delivery Nasal Cannula Oxygen Flow Rate 5 05/08/24 23:57 05/09/24 00:00 05/09/24 00:00 Temperature Pulse Rate 65 82 Respiratory Rate 16 Blood Pressure Pulse Oximetry 99 Oxygen Delivery High Flow Nasal Cannula Oxygen Flow Rate 5 05/09/24 00:12 05/09/24 02:00 05/09/24 03:49 Temperature 37.1 C Pulse Rate 66 63 58 L Respiratory Rate 20 16 Blood Pressure 118/46 L Pulse Oximetry 97 Oxygen Delivery Oxygen Flow Rate 05/09/24 04:00 05/09/24 04:00 05/09/24 05:48 Temperature Pulse Rate 58 L 62 Respiratory Rate Blood Pressure Pulse Oximetry 95 Oxygen Delivery High Flow Nasal Cannula Oxygen Flow Rate 5 05/09/24 07:45 05/09/24 08:00 05/09/24 08:33 Temperature 37.0 C Pulse Rate 58 L 67 Respiratory Rate 16 Blood Pressure 120/45 L Pulse Oximetry 97 93 Oxygen Delivery Nasal Cannula Oxygen Flow Rate 5 05/09/24 08:33 05/09/24 08:49 05/09/24 09:09 Temperature Pulse Rate 66 62 65 Respiratory Rate 20 20 Blood Pressure Pulse Oximetry Oxygen Delivery Oxygen Flow Rate 05/09/24 10:00 05/09/24 11:11 Temperature 36.7 C Pulse Rate 63 51 L Respiratory Rate 18 Blood Pressure 109/47 L Pulse Oximetry 96 Oxygen Delivery Oxygen Flow Rate Intake/Output Intake/Output: Intake & Output 05/06/24 05/07/24 05/08/24 05/09/24 23:59 23:59 23:59 23:59 Intake Total 1880 1150 900 640 Output Total 400 850 301 Balance 1480 300 599 640 Meds/Results Medications: Active Medications Generic Name Dose Route Start Last Admin Trade Name Freq PRN Reason Stop Dose Admin Acetaminophen 650 mg 05/01/24 07:08 05/06/24 20:44 Acetaminophen 325 Mg Tablet PO 650 mg Q4H PRN Administration Mild Pain (1-3) or Fever Apixaban 5 mg 05/04/24 21:00 05/09/24 09:09 Apixaban 5 Mg Tablet PO 5 mg Q12HR TYREL Administration Cefuroxime Axetil 500 mg 05/10/24 09:00 Cefuroxime Axetil 250 Mg Tablet PO 05/10/24 21:01 Q12HR TYREL Dextrose 12.5 gm 05/01/24 18:45 05/08/24 07:31 Dextrose 50% 25 Gm/50 Ml Syringe IV PUSH 12.5 gm PRN PRN Administration Hypoglycemia Protocol Gabapentin 300 mg 05/01/24 19:55 05/09/24 11:34 Gabapentin 300 Mg Capsule PO 300 mg TID TYREL Administration Glucagon 1 mg 05/01/24 18:45 Glucagon For Inj 1 Mg Vial IM PRN PRN Hypoglycemia Protocol Glucose 15 gm 05/01/24 18:45 05/04/24 08:29 Glucose Oral Gel 15 Gm Of Glucse In 37.5 Gm Tube PO 15 gm PRN PRN Administration Hypoglycemia Protocol Guaifenesin 1,200 mg 05/04/24 09:00 05/09/24 09:09 Guaifenesin 12 Hr 600 Mg Tabcr PO 1,200 mg Q12HR TYREL Administration Dextrose 1,000 mls @ 100 mls/hr 05/01/24 18:45 Dextrose 5% 1,000 Ml IVPB PRN PRN Hypoglycemia Protocol Insulin Aspart 3 - 6 units 05/02/24 08:00 05/09/24 11:33 Insulin Aspart (*Bkc) 100 Units/Ml SUB-Q 5 units TIDWM TYREL Administration Protocol Insulin Aspart 1 - 3 units 05/01/24 21:00 05/08/24 21:01 Insulin Aspart (*Bkc) 100 Units/Ml SUB-Q 1 units HS TYREL Administration Protocol Insulin Glargine 25 units 05/09/24 09:00 05/09/24 09:12 Insulin Glargine (*Bkc) 100 Units/Ml SUB-Q 25 units DAILY TYREL Administration Levalbuterol HCl 1.25 mg 05/05/24 16:00 05/09/24 08:31 Levalbuterol Neb 1.25 Mg/3 Ml INHALATION 1.25 mg Q8HRT TYREL Administration Ondansetron HCl 4 mg 05/01/24 07:08 05/03/24 15:32 Ondansetron Inj 4 Mg/2 Ml Vial IV PUSH 4 mg Q4H PRN Administration Nausea Oxycodone HCl 5 mg 05/05/24 14:00 05/09/24 09:11 Oxycodone Hcl (*Crx) 5 Mg Tab Ir PO Not Given Q6H TYREL Polyethylene Glycol 17 gm 05/04/24 09:25 05/09/24 09:10 Polyethylene Glycol 3350 17 Gm Powd.Pack PO Not Given QAM TYREL Sotalol HCl 80 mg 05/06/24 21:00 05/09/24 09:09 Sotalol Hcl 80 Mg Tablet PO 80 mg Q12HR TYREL Administration Radiology Results: ITS Impressions Chest CTA 05/01/24 05:40 Impression: Diffusely increased density of the left breast with extensive left breast skin thickening. Appearance raises the possibility of inflammatory breast carcinoma. Asymmetric fluid overload would be a potential alternative consideration. Physical exam and possible mammographic workup recommended, if clinically indicated and not recently performed. There is airspace consolidation the peripheral left upper lobe and right middle lobe, which could reflect areas of atelectasis versus pneumonia. Correlate clinically. Peripheral airspace disease in the left upper lobe, suggestive of possible postradiation change versus additional pneumonia. Abdomen X-Ray 05/03/24 15:40 IMPRESSION: No significant fecal stasis, as detailed above. Chest X-Ray 05/05/24 10:02 IMPRESSION: 1. No change in patchy airspace opacities throughout the left lung and in the right lower lung zone which could represent atelectasis or pneumonia. Labs Labs: Laboratory Results - last 24 hr 05/08/24 05/08/24 05/08/24 11:21 15:14 20:14 WBC RBC Hgb Hct MCV MCH MCHC RDW Plt Count MPV Sodium Potassium Chloride Carbon Dioxide Anion Gap BUN Creatinine Estim Creat Clear Calc Estimated GFR Glucose POC Capillary Glucose 254 H 235 H 324 H Calcium Total Bilirubin AST ALT Alkaline Phosphatase Total Protein Albumin 05/09/24 05/09/24 04:33 07:44 WBC 6.5 RBC 3.14 L Hgb 9.6 L Hct 31.0 L MCV 98.7 MCH 30.6 MCHC 31.0 L RDW 14.3 Plt Count 225 MPV 10.5 H Sodium 137 Potassium 3.9 Chloride 104 Carbon Dioxide 27 Anion Gap 6 BUN 26 H Creatinine 1.38 H Estim Creat Clear Calc 31 Estimated GFR 37 L Glucose 142 H POC Capillary Glucose 130 H Calcium 8.5 Total Bilirubin 0.5 AST 92 H ALT 110 H Alkaline Phosphatase 169 H Total Protein 6.0 L Albumin 2.7 L
--- NOTE | 2024-05-09 12:31 | PCPTNOTE ---
On 05/09/24, the student, Félix Mills, provided care and completed [facility] documentation on this patient. I have reviewed the student's documentation and agree with the findings.
--- NOTE | 2024-05-09 14:29 | HOMEO2EVAL ---
Evaluation was performed at [facility] Home Oxygen Evaluation RC: Home Oxygen (O2) Evaluation Start: 05/09/24 11:55 Freq: ONCE Status: Active Protocol: RPE Activity Type Activity Date Activity User E-sign Co-sign Detail Recorded Client Recorded Date Recorded By Document 05/09/24 13:05 PK RT_012 05/09/24 14:28 PK Document 05/09/24 13:10 PK RT_012 05/09/24 14:28 PK Document 05/09/24 13:15 PK RT_012 05/09/24 14:28 PK Document 05/09/24 13:20 PK RT_012 05/09/24 14:28 [facility] Document 05/09/24 14:24 [facility] RT_012 05/09/24 14:28 [facility] 05/09/24 05/09/24 05/09/24 13:05 13:10 13:15 Home O2 Evaluation [Oxygen] -Test Phase Resting Resting Exercise -Oxygen Delivery Nasal Cannula Nasal Cannula Nasal Cannula -Oxygen Flow Rate (L/min) 1 2 2 [Pulse Oximetry] -Pulse Oximetry (90-100 %) 88 L 90 88 L [Pulse Rate] -Pulse Rate (60-100 beats/min) 64 64 70 [Charges] -Evaluation Charges 05/09/24 05/09/24 13:20 14:24 Home O2 Evaluation [Oxygen] -Test Phase Exercise Resting -Oxygen Delivery Nasal Cannula Room Air -Oxygen Flow Rate (L/min) [Pulse Oximetry] -Pulse Oximetry (90-100 %) 90 87 L [Pulse Rate] -Pulse Rate (60-100 beats/min) 75 62 [Charges] -Evaluation Charges O2 Evaluation by Pulmonary
--- NOTE | 2024-05-09 14:30 | PCRCNOTE ---
Home O2 eval complete. Patient requires 2 lpm rest and 3lpm activity. Home O2 set up with IV and respiratory [phone] RN notified.
--- NOTE | 2024-05-09 14:57 | P.DS_ITS ---
DS: Admitting Diagnosis Discharge Date 05/09/2024 Admitting Diagnosis sob DS: Discharge Diagnosis Discharge Diagnosis (1) Acute respiratory failure with hypoxia: Code(s): J96.01 - Acute respiratory failure with hypoxia Status: Acute Assessment and Plan: patient presented to the emergency department with generalized weakness after being diagnosed with influenza a chest x-ray suggestive pneumonia time of admission she was requiring 3 L nasal cannula of supplemental oxygen to maintain 92% patient does not wear oxygen at home likely secondary to COPD and pneumonia as well as influenza. * azithromycin and Rocephin also received 1 dose of vancomycin * CTA negative for PE/airspace consolidation the peripheral left upper lobe and right middle lobe, which could reflect areas of atelectasis versus pneumonia. * blood cultures grew staph capitis x1 bottle Likely contaminated * DuoNebs * incentive spirometer * mucolytics * antipyretics * wean oxygen as tolerated * repeat blood cultures with no growth to date 05/05 * Increased oxygen demands multifocal AFIB, CHF?, respiratory depression from narcotics * IVP Lasix 40mg x 1 * IVP metoprolol 5mg IVP * on 5L NC 05/06: * Patient doing better with Venturi mask at 5 L NC 05/07: * Continue to wean oxygen still on 6L * May need home 02 evaluation prior to discharge 05/09 pt ok to dc on 2 liters of oxygen (2) Pneumonia: Code(s): J18.9 - Pneumonia, unspecified organism Status: Acute Assessment and Plan: SEE ABOVE #1 (3) Paroxysmal atrial fibrillation: Code(s): I48.0 - Paroxysmal atrial fibrillation Status: Acute Assessment and Plan: Patient in AFIB RVR on arrival to the ED HR 152 * Cardizem IV 10 mg in ED * Resumed Cardizem PO 120 * HR controlled today * Had been on Eliquis before unsure why it was stopped denies any HX of GI bleed or hemorrhagic stroke * CHADVASC 4 * Started patient back on Eliquis BID 05/05: * Patient flipped into AFIB with RVR with peaked at 161 * Metoprolol 5mg IVP with improvement and received her oral Cardizem * EKG reviewed * continuous cardiac monitoring * Echo pending 05/06: * HR controlled at 80 SR today * Plan to start sotalol * D/C Cardizem 05/07: * SR on sotalol * EKG: Qtc 426 05/08: * EKG QTC 433 * SR 64 05/09 pt ok to dc today on Eliquis and sotalol as per cardiology (4) Pulmonary congestion: Code(s): R09.89 - Other specified symptoms and signs involving the circulatory and respiratory systems Status: Acute Assessment and Plan: No HX of CHF * BNP 1800 * CXR atelectasis versus pneumonia versus pulmonary congestion * Lasix x 1 40mg IVP * Echo pending 05/06: * LVEF 65-70%/AFIB/mild pulmonary HTN (5) Insulin dependent type 2 diabetes mellitus: Code(s): E11.9 - Type 2 diabetes mellitus without complications; 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 HS * sliding scale insulin * hold oral diabetic medications * resume patient's home long-acting was at 18 BID then bumped to 20 now lowered to 15 BID * Diabetic diet * Optimize Akin inhibitors and statins. * Watch for hypoglycemia/hypoglycemic protocol ordered 05/08: * Patient hypoglycemia 45 this am Evelyn phenomenon * will change long acting insulin to 25 u daily instead of BID appears to be hypoglycemic in the AM * Encourage snack at bedtime (6) Adv eff opiates: Code(s): T40.605A - Adverse effect of unspecified narcotics, initial encounter Status: Acute Assessment and Plan: Patient home dose is percocet 10mg Q4prn for pain, somnolence, hypoxic, and only minimal response to stimuli * Narcan x1 with overall improvement * decreased home dose * encourage non-narcotics for pain relief (7) Chronic obstructive pulmonary disease: Code(s): J44.9 - Chronic obstructive pulmonary disease, unspecified Status: Acute Assessment and Plan: patient is a current everyday smoker history of COPD * Bronchodilators. * CTA reviewed per above #1 * incentive spirometry while awake. * azithromycin 500 PO * supplemental oxygen therapy to maintain oxygen 92% * Evaluation from home O2 if saturation less than 88% on room air. * Smoking cessation counseling done (8) Thrombocytopenia: Code(s): D69.6 - Thrombocytopenia, unspecified Status: Resolved Assessment and Plan: * Likely secondary to infection * monitor daily * no need for PLT transfusion at this time RESOLVED PLT 199 (9) Tobacco dependence: Code(s): F17.200 - Nicotine dependence, unspecified, uncomplicated Status: Acute Assessment and Plan: * current smoker * smoking cessation education (10) Constipation: Code(s): K59.00 - Constipation, unspecified Status: Acute Assessment and Plan: * ABD XRAY no acute findings or fecal stasis * Bowel regimen (11) Abnormal finding on CT scan: Code(s): R93.89 - Abnormal findings on diagnostic imaging of other specified body structures Status: Acute Assessment and Plan: Diffusely increased density of the left breast with extensive left breast skin thickening. Appearance raises the possibility of inflammatory breast carcinoma. Asymmetric fluid overload would be a potential alternative consideration. * No recent mammogram on file * will need follow-up mammogram O/P DS: Summary Hospital Course Hospital Course: patient continues admission for acute respiratory failure with hypoxia secondary to pneumonia, influenza, COPD exacerbation, AFIB RVR and patient did have episode of hypoglycemia this a.m. improved with hypoglycemic protocol will continue to wean oxygen as tolerated. Day 2 on sotalol remains in sinus rhythm QTC 433. Patient completed sotalol loading ok to dc as per cardiology , dc on 2 liters of oxygen Time Spent with Patient Time attestation: Total time spent providing and/or coordinating discharge services:55 minutes on day of dc Exam Narrative: * GENERAL: Alert and oriented x 3. No acute distress. * EYES: PERRLA. * HEENT: Moist mucous membranes. * LUNGS: Diminished auscultation bilaterally. No accessory muscle use. on 5L NC * CARDIOVASCULAR: SR. No murmur. * ABDOMEN: Soft, non tenderness and non-distended. * EXTREMITIES: No edema. Non-tender * SKIN: No rashes or lesions. Skin warm, dry. * NEUROLOGIC: No focal neurological deficits. CN II-XII grossly intact * PSYCHIATRIC: Appropriate mood and affect. Good judgement and insight. DS: Data Data Completed and Pending Labs on day of discharge: Labs from last 24 hours 05/09/24 05/09/24 05/08/24 07:44 04:33 20:14 WBC 6.5 RBC 3.14 L Hgb 9.6 L Hct 31.0 L MCV 98.7 MCH 30.6 MCHC 31.0 L RDW 14.3 Plt Count 225 MPV 10.5 H Sodium 137 Potassium 3.9 Chloride 104 Carbon Dioxide 27 Anion Gap 6 BUN 26 H Creatinine 1.38 H Estim Creat Clear Calc 31 Estimated GFR 37 L Glucose 142 H POC Capillary Glucose 130 H 324 H Calcium 8.5 Total Bilirubin 0.5 AST 92 H ALT 110 H Alkaline Phosphatase 169 H Total Protein 6.0 L Albumin 2.7 L 05/08/24 15:14 WBC RBC Hgb Hct MCV MCH MCHC RDW Plt Count MPV Sodium Potassium Chloride Carbon Dioxide Anion Gap BUN Creatinine Estim Creat Clear Calc Estimated GFR Glucose POC Capillary Glucose 235 H Calcium Total Bilirubin AST ALT Alkaline Phosphatase Total Protein Albumin Preliminary micro results at discharge 05/04/24 15:50 Blood Culture - Preliminary Blood 05/04/24 15:50 Blood Culture - Preliminary Blood Discharge Plan Discharge Attending physician on discharge: Marleny Mcintosh Consulting providers: Tomi Segovia Discharging Clinician: Marleny Mcintosh Anticipated Discharge Date/Time: 05/09/24 14:28 Patient Disposition: Home Health Service Activity: as tolerated Diet: as tolerated Discharge Instructions: Per Care Coordination. Patient to have [facility] for RN/PT/OT eval and treat [phone]. They will contact patient to schedule first visit. DC on 2 liters of oxygen Patient Instructions: Antibiotic Form, Apixaban (By mouth), Hypoxia (GEN), Pneumonia (GEN), Safe Use of Anticoagulants (ED) Patient Language: Vincentian Stand Alone Forms: General Discharge Information Follow-up/Referrals: Ernesto Alfaro MD [Primary Care Provider] - (in 2-3 weeks time ) Discharge Medications: New cefuroxime axetil 250 mg Tablet 500 mg PO Q12HR Qty: 14 0RF polyethylene glycol 3350 [Miralax] 17 gram Powder In Packet 17 g PO QAM Qty: 30 0RF sotalol 80 mg Tablet 80 mg PO Q12HR Qty: 60 1RF Eliquis 5 mg Tablet 5 mg PO Q12HR Qty: 60 1RF guaifenesin [Mucus Relief ER] 600 mg Tablet Extended Release 12hr 1,200 mg PO Q12HR Qty: 30 0RF Continued gabapentin 300 mg capsule 300 mg PO TID albuterol sulfate 90 mcg/actuation HFA aerosol inhaler 2 inh INHALATION PRN PRN (Reason: SOB) diltiazem HCl [DILT-XR] 120 mg capsule,ext.rel 24h degradable 120 mg PO DAILY insulin aspart U-100 100 unit/mL (3 mL) insulin pen 1 sliding scale dose SUBCUT TIDWMEAL mometasone 0.1 % cream 1 applic TOPICAL DAILY PRN (Reason: itching) Patient Comments: apply around breasts nitrofurantoin monohyd/m-cryst 100 mg capsule 100 mg PO TID oxycodone 10 mg tablet 10 mg PO Q4H Changed insulin glargine [Lantus Solostar U-100 Insulin] 100 unit/mL (3 mL) insulin pen 25 unit SUBCUT ACHS Qty: 15 0RF Discontinued clindamycin HCl 150 mg capsule 150 mg PO TID Date of admission: 05/02/24 13:21 Primary Care Provider: Ernesto Alfaro Admitting Provider: Violeta Oreilly Attending physician on admission: Sharon Eller Condition: Stable Hospitalist MIPS Heart Failure (Exclusion) Patient has history of Heart Transplant or Left Ventricular Assistive Device?: No IF YES, STOP HERE Heart Failure (Qualifier) Patient has current or prior documentation of LVEF less than or equal to 40%, or mod/servere depressed LVSF?: No IF NO, STOP HERE If Yes, Heart Failure (Qualifier) Patient was prescribed or already taking an Angiotensin-Converting Enzyme (AKIN) Inhibitor, or Antiotensin Receptor Kael (ARB): Yes
--- NOTE | 2024-05-09 14:57 | PM.DS ---
DS: Admitting Diagnosis Discharge Date 05/09/2024 Admitting Diagnosis sob DS: Discharge Diagnosis Discharge Diagnosis (1) Acute respiratory failure with hypoxia: Code(s): J96.01 - Acute respiratory failure with hypoxia Status: Acute Assessment and Plan: patient presented to the emergency department with generalized weakness after being diagnosed with influenza a chest x-ray suggestive pneumonia time of admission she was requiring 3 L nasal cannula of supplemental oxygen to maintain 92% patient does not wear oxygen at home likely secondary to COPD and pneumonia as well as influenza. azithromycin and Rocephin also received 1 dose of vancomycin CTA negative for PE/airspace consolidation the peripheral left upper lobe and right middle lobe, which could reflect areas of atelectasis versus pneumonia. blood cultures grew staph capitis x1 bottle Likely contaminated DuoNebs incentive spirometer mucolytics antipyretics wean oxygen as tolerated repeat blood cultures with no growth to date 05/05 Increased oxygen demands multifocal AFIB, CHF?, respiratory depression from narcotics IVP Lasix 40mg x 1 IVP metoprolol 5mg IVP on 5L NC 05/06: Patient doing better with Venturi mask at 5 L NC 05/07: Continue to wean oxygen still on 6L May need home 02 evaluation prior to discharge 05/09 pt ok to dc on 2 liters of oxygen (2) Pneumonia: Code(s): J18.9 - Pneumonia, unspecified organism Status: Acute Assessment and Plan: SEE ABOVE #1 (3) Paroxysmal atrial fibrillation: Code(s): I48.0 - Paroxysmal atrial fibrillation Status: Acute Assessment and Plan: Patient in AFIB RVR on arrival to the ED HR 152 Cardizem IV 10 mg in ED Resumed Cardizem PO 120 HR controlled today Had been on Eliquis before unsure why it was stopped denies any HX of GI bleed or hemorrhagic stroke CHADVASC 4 Started patient back on Eliquis BID 05/05: Patient flipped into AFIB with RVR with peaked at 161 Metoprolol 5mg IVP with improvement and received her oral Cardizem EKG reviewed continuous cardiac monitoring Echo pending 05/06: HR controlled at 80 SR today Plan to start sotalol D/C Cardizem 05/07: SR on sotalol EKG: Qtc 426 05/08: EKG QTC 433 SR 64 05/09 pt ok to dc today on Eliquis and sotalol as per cardiology md (4) Pulmonary congestion: Code(s): R09.89 - Other specified symptoms and signs involving the circulatory and respiratory systems Status: Acute Assessment and Plan: No HX of CHF BNP 1800 CXR atelectasis versus pneumonia versus pulmonary congestion Lasix x 1 40mg IVP Echo pending 05/06: LVEF 65-70%/AFIB/mild pulmonary HTN (5) Insulin dependent type 2 diabetes mellitus: Code(s): E11.9 - Type 2 diabetes mellitus without complications; 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 HS sliding scale insulin hold oral diabetic medications resume patient's home long-acting was at 18 BID then bumped to 20 now lowered to 15 BID Diabetic diet Optimize Akin inhibitors and statins. Watch for hypoglycemia/hypoglycemic protocol ordered 05/08: Patient hypoglycemia 45 this am Evelyn phenomenon will change long acting insulin to 25 u daily instead of BID appears to be hypoglycemic in the AM Encourage snack at bedtime (6) Adv eff opiates: Code(s): T40.605A - Adverse effect of unspecified narcotics, initial encounter Status: Acute Assessment and Plan: Patient home dose is percocet 10mg Q4prn for pain, somnolence, hypoxic, and only minimal response to stimuli Narcan x1 with overall improvement decreased home dose encourage non-narcotics for pain relief (7) Chronic obstructive pulmonary disease: Code(s): J44.9 - Chronic obstructive pulmonary disease, unspecified Status: Acute Assessment and Plan: patient is a current everyday smoker history of COPD Bronchodilators. CTA reviewed per above #1 incentive spirometry while awake. azithromycin 500 PO supplemental oxygen therapy to maintain oxygen 92% Evaluation from home O2 if saturation less than 88% on room air. Smoking cessation counseling done (8) Thrombocytopenia: Code(s): D69.6 - Thrombocytopenia, unspecified Status: Resolved Assessment and Plan: Likely secondary to infection monitor daily no need for PLT transfusion at this time RESOLVED PLT 199 (9) Tobacco dependence: Code(s): F17.200 - Nicotine dependence, unspecified, uncomplicated Status: Acute Assessment and Plan: current smoker smoking cessation education (10) Constipation: Code(s): K59.00 - Constipation, unspecified Status: Acute Assessment and Plan: ABD XRAY no acute findings or fecal stasis Bowel regimen (11) Abnormal finding on CT scan: Code(s): R93.89 - Abnormal findings on diagnostic imaging of other specified body structures Status: Acute Assessment and Plan: Diffusely increased density of the left breast with extensive left breast skin thickening. Appearance raises the possibility of inflammatory breast carcinoma. Asymmetric fluid overload would be a potential alternative consideration. No recent mammogram on file will need follow-up mammogram O/P DS: Summary Hospital Course Hospital Course: patient continues admission for acute respiratory failure with hypoxia secondary to pneumonia, influenza, COPD exacerbation, AFIB RVR and patient did have episode of hypoglycemia this a.m. improved with hypoglycemic protocol will continue to wean oxygen as tolerated. Day 2 on sotalol remains in sinus rhythm QTC 433. Patient completed sotalol loading ok to dc as per cardiology , dc on 2 liters of oxygen Time Spent with Patient Time attestation: Total time spent providing and/or coordinating discharge services:55 minutes on day of dc Exam Narrative: GENERAL: Alert and oriented x 3. No acute distress. EYES: PERRLA. HEENT: Moist mucous membranes. LUNGS: Diminished auscultation bilaterally. No accessory muscle use. on 5L NC CARDIOVASCULAR: SR. No murmur. ABDOMEN: Soft, non tenderness and non-distended. EXTREMITIES: No edema. Non-tender SKIN: No rashes or lesions. Skin warm, dry. NEUROLOGIC: No focal neurological deficits. CN II-XII grossly intact PSYCHIATRIC: Appropriate mood and affect. Good judgement and insight. DS: Data Data Completed and Pending Labs on day of discharge: Labs from last 24 hours 05/09/24 05/09/24 05/08/24 07:44 04:33 20:14 WBC 6.5 RBC 3.14 L Hgb 9.6 L Hct 31.0 L MCV 98.7 MCH 30.6 MCHC 31.0 L RDW 14.3 Plt Count 225 MPV 10.5 H Sodium 137 Potassium 3.9 Chloride 104 Carbon Dioxide 27 Anion Gap 6 BUN 26 H Creatinine 1.38 H Estim Creat Clear Calc 31 Estimated GFR 37 L Glucose 142 H POC Capillary Glucose 130 H 324 H Calcium 8.5 Total Bilirubin 0.5 AST 92 H ALT 110 H Alkaline Phosphatase 169 H Total Protein 6.0 L Albumin 2.7 L 05/08/24 15:14 WBC RBC Hgb Hct MCV MCH MCHC RDW Plt Count MPV Sodium Potassium Chloride Carbon Dioxide Anion Gap BUN Creatinine Estim Creat Clear Calc Estimated GFR Glucose POC Capillary Glucose 235 H Calcium Total Bilirubin AST ALT Alkaline Phosphatase Total Protein Albumin Preliminary micro results at discharge 05/04/24 15:50 Blood Culture - Preliminary Blood 05/04/24 15:50 Blood Culture - Preliminary Blood Discharge Plan Discharge Attending physician on discharge: Marleny Mcintosh Consulting providers: Tomi Segovia Discharging Clinician: Marleny Mcintosh Anticipated Discharge Date/Time: 05/09/24 14:28 Patient Disposition: Home Health Service Activity: as tolerated Diet: as tolerated Discharge Instructions: Per Care Coordination. Patient to have [facility] for RN/PT/OT eval and treat [phone]. They will contact patient to schedule first visit. DC on 2 liters of oxygen Patient Instructions: Antibiotic Form, Apixaban (By mouth), Hypoxia (GEN), Pneumonia (GEN), Safe Use of Anticoagulants (ED) Patient Language: Mongolian Stand Alone Forms: General Discharge Information Follow-up/Referrals: Ernesto Alfaro MD [Primary Care Provider] - (in 2-3 weeks time ) Discharge Medications: New cefuroxime axetil 250 mg Tablet 500 mg PO Q12HR Qty: 14 0RF polyethylene glycol 3350 [Miralax] 17 gram Powder In Packet 17 g PO QAM Qty: 30 0RF sotalol 80 mg Tablet 80 mg PO Q12HR Qty: 60 1RF Eliquis 5 mg Tablet 5 mg PO Q12HR Qty: 60 1RF guaifenesin [Mucus Relief ER] 600 mg Tablet Extended Release 12hr 1,200 mg PO Q12HR Qty: 30 0RF Continued gabapentin 300 mg capsule 300 mg PO TID albuterol sulfate 90 mcg/actuation HFA aerosol inhaler 2 inh INHALATION PRN PRN (Reason: SOB) diltiazem HCl [DILT-XR] 120 mg capsule,ext.rel 24h degradable 120 mg PO DAILY insulin aspart U-100 100 unit/mL (3 mL) insulin pen 1 sliding scale dose SUBCUT TIDWMEAL mometasone 0.1 % cream 1 applic TOPICAL DAILY PRN (Reason: itching) Patient Comments: apply around breasts nitrofurantoin monohyd/m-cryst 100 mg capsule 100 mg PO TID oxycodone 10 mg tablet 10 mg PO Q4H Changed insulin glargine [Lantus Solostar U-100 Insulin] 100 unit/mL (3 mL) insulin pen 25 unit SUBCUT ACHS Qty: 15 0RF Discontinued clindamycin HCl 150 mg capsule 150 mg PO TID Date of admission: 05/02/24 13:21 Primary Care Provider: Ernesto Alfaro Admitting Provider: Violeta Oreilly Attending physician on admission: Sharon Eller Condition: Stable Hospitalist MIPS Heart Failure (Exclusion) Patient has history of Heart Transplant or Left Ventricular Assistive Device?: No IF YES, STOP HERE Heart Failure (Qualifier) Patient has current or prior documentation of LVEF less than or equal to 40%, or mod/servere depressed LVSF?: No IF NO, STOP HERE If Yes, Heart Failure (Qualifier) Patient was prescribed or already taking an Angiotensin-Converting Enzyme (AKIN) Inhibitor, or Antiotensin Receptor Kael (ARB): Yes
[2024-05-09 16:50] LABS: Glucose Point of Care 323 mg/dl (65-105)
== END 2024-05-09 15:59 | disposition home health service (06) | DRG 193 ==
LOC: ANHED 05-01 00:25 → ANHIMU 05-01 09:04 → ANH2MED 05-02 12:35 → ANHIMU 05-06 15:46
PROVIDERS: General Practice; Internal Medicine; Nurse Practitioner Family; Admitting Provider General Practice; Emergency Provider Student in an Organized Health Care Education/Training Program; PCP Family Medicine; Visit Provider Family Medicine
DX: J10.08 Influenza due to other identified influenza virus with other specified pneumonia (principal); J96.01 Acute respiratory failure with hypoxia; D61.818 Other pancytopenia; J15.9 Unspecified bacterial pneumonia; J44.0 Chronic obstructive pulmonary disease with (acute) lower respiratory infection; I48.0 Paroxysmal atrial fibrillation; E11.649 Type 2 diabetes mellitus with hypoglycemia without coma; K59.00 Constipation, unspecified; T40.2X5A Adverse effect of other opioids, initial encounter; D69.6 Thrombocytopenia, unspecified; F17.210 Nicotine dependence, cigarettes, uncomplicated; E11.42 Type 2 diabetes mellitus with diabetic polyneuropathy; R93.89 Abnormal findings on diagnostic imaging of other specified body structures; I73.00 Raynaud's syndrome without gangrene; E11.65 Type 2 diabetes mellitus with hyperglycemia; D64.9 Anemia, unspecified; I10 Essential (primary) hypertension; F41.9 Anxiety disorder, unspecified; F32.A Depression, unspecified; F17.290 Nicotine dependence, other tobacco product, uncomplicated; Z90.49 Acquired absence of other specified parts of digestive tract; Z90.710 Acquired absence of both cervix and uterus; Z79.4 Long term (current) use of insulin
CPT/HCPCS: 36415; 36600; 71045; 71275; 74018; 80048; 80053; 81001; 82550; 82805; 82948; 83605; 83735; 83880; 84443; 85018; 85025; 85027; 85055; 85380; 87040; 87181; 87637; 87641; 93005; 93306; 94618; 94640; 96361; 96365; 96367; 96375; 97110; 97116; 97161; 97165; 97530; 97535; 99285; A9270; G0378; J0456; J0696; J1650; J1815; J1940; J2310; J2405; J3370; J7030; J7040; Q9967

== ENCOUNTER 2024-07-07 15:45 | Inpatient (IN) | payer MEDICARE, MEDICAID, SELFPAY ==
[2024-07-07] VITALS (43 sets, daily range): BP systolic 90–148; BP diastolic 45–112; PULSE 57–146; RESP 11–32; TEMP 36.6–36.9; O2SAT 94–99
--- NOTE | ~2024-07-07 | XR_ITS ---
XR ankle RT min 3V Ordering provider: Jeane Durham PA-C History: . fall last week, R ankle pain, prev fx/surg . Comparison: December 07, 2021 FINDINGS: BONES: No acute fracture or dislocation. Old healed fractures in the distal tibia and fibula. JOINT SPACES: Severe osteoarthritic changes with possible fusion laterally. Narrowing of the subtalar joint is also noted. SOFT TISSUES: Soft tissue swelling bilaterally. Calcaneal spur. IMPRESSION: No acute osseous abnormality of the right ankle. Reviewed, dictated and finalized at location A.
--- NOTE | ~2024-07-07 | CT_ITS ---
CT diagnostic chest w con Ordering provider: Jeane Durham PA-C History: 74 years Female with . abnml chest xry, upper lobe opacity . Comparison: May 01, 2024 Technique: CT chest with IV contrast. Radiation reduction technique utilized. The dose-length product was 298.1 mGy-cm. 75 mL Omnipaque 350 was given IV. Findings: VISUALIZED THORACIC INLET: Normal. MEDIASTINUM: Aorta/coronary arteries: Mild atheromatous disease. Heart/other: The heart is slightly enlarged. Lymph nodes: No mediastinal or hilar adenopathy. LUNGS: Atelectasis versus fibrotic changes in the left apical area are noted. Atelectasis versus pneu monia with underlying fibrotic changes seen in the left upper lobe. No definite mass is seen. Pleural base nodule is seen in the left lower lobe which may be atelectatic measuring 1.6 cm. 3 months follo w-up advised. Moderate left pleural effusion is seen. No pulmonary masses. No pneumothorax. VISUALIZED UPPER ABDOMEN: Sliding hiatus hernia. Otherwise, the visualized upper abdomen is normal. MUSCULOSKELETAL: Soft tissues: The superficial soft tissues are normal. Bones: Age appropriate degenerative changes of the spine. Multiple healed right lower thorax. IMPRESSION: Patchy opacities in the left upper lobe suggestive of atelectasis versus pneumonia. No pleural base m ass seen. Moderate to large pleural effusion. 1.6 cm Pleural base nodule in the left lower lobe with adjacent atelectasis. 3 months follow-up advis ed. Reviewed, dictated and finalized at location A. IMPRESSION: Patchy opacities in the left upper lobe suggestive of atelectasis versus pneumo enedina. No pleural base mass seen. Moderate to large pleural effusion. 1.6 cm Pleural base nodule in the left lower lobe with adjacent atelectasis. 3 months follow-up advised.
--- NOTE | ~2024-07-07 | US_ITS ---
BILATERAL LOWER EXTREMITY VENOUS ULTRASOUND Ordering provider: Jeane Durham PA-C History: . swelling, pain in legs . Comparison: None. FINDINGS: RIGHT LOWER EXTREMITY VEINS: --COMMON FEMORAL: Patent and free of thrombus. Normal compressibility, phasic flow and augmentation. --PROXIMAL SUPERFICIAL FEMORAL: Patent and free of thrombus. Normal compressibility, phasic flow and augmentation. --DISTAL SUPERFICIAL FEMORAL: Patent and free of thrombus. Normal compressibility, phasic flow and au gmentation. --POPLITEAL: Patent and free of thrombus. Normal compressibility, phasic flow and augmentation. --POSTERIOR TIBIAL: Patent and free of thrombus. Normal compressibility, phasic flow and augmentation . LEFT LOWER EXTREMITY VEINS: --COMMON FEMORAL: Patent and free of thrombus. Normal compressibility, phasic flow and augmentation. --PROXIMAL SUPERFICIAL FEMORAL: Patent and free of thrombus. Normal compressibility, phasic flow and augmentation. --DISTAL SUPERFICIAL FEMORAL: Patent and free of thrombus. Normal compressibility, phasic flow and au gmentation. --POPLITEAL: Patent and free of thrombus. Normal compressibility, phasic flow and augmentation. --POSTERIOR TIBIAL: Patent and free of thrombus. Normal compressibility, phasic flow and augmentation . IMPRESSION: Negative bilateral lower extremity venous US. No deep vein thrombosis. Reviewed, dictated and finalized at location A.
--- NOTE | ~2024-07-07 | XR_ITS ---
XR chest 1V portable Ordering provider: Jeane Durham PA-C History: 74 years Female with . weakness, confusion, recent PNA . Comparison: May 05, 2024 FINDINGS: MEDIASTINUM: The cardiac silhouette is slightly enlarged. LUNGS: No effusions or pneumothorax. Pleural base opacification in the left upper lobe is noted which may be pleural thickening or atelectasis. Follow-up to exclude a mass is advised. Opacification in t he left lower lobe area suggestive of atelectasis versus pneumonia. OTHER: No free air under the diaphragm. Healing fractures in the right mid thorax is noted. IMPRESSION: Left lower atelectasis versus pneumonia. Left upper lobe pleural-based opacity. CT evaluation is advised. Reviewed, dictated and finalized at location A.
--- NOTE | ~2024-07-07 | CT_ITS ---
CT brain wo con Ordering provider: Jeane Durham PA-C History: 74 years Female with . confusion, weakness . Comparison: None. Technique: CT of the head without contrast. Radiation reduction technique utilized.The dose-length pr oduct was 747.47 mGy-cm. FINDINGS: BRAIN PARENCHYMA AND CSF SPACES: Mild leukoaraiosis and diffuse cortical atrophy. Mild atheromatous d isease. 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 No midline shift, mass effe ct or hemorrhage. The brain parenchyma and CSF spaces are otherwise normal. VISUALIZED PARANASAL SINUSES: Well aerated. MASTOIDS: Well aerated. BONES: The bones appear intact. SOFT TISSUES: Visualized nasopharynx is normal. Superficial soft tissues are normal. IMPRESSION: No acute intracranial findings. Reviewed, dictated and finalized at location A.
--- OUTSIDE RECORDS SUMMARY | 2024-07-07 15:48 | XMS_ITS | Patient Health Record ---
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 Name Role Phone JONNA LANGSTON Unavailable [phone] Ernesto Alfaro Unavailable Unavailable Allergies Allergen (clinical drug ingredient) Drug/Non Drug Allergy documented on EMR Reaction Allergy Type Onset Date Status Keflex Unknown Drug Allergy Active aspirin Aspirin Unknown Drug Allergy Active menthol Menthol Unknown Drug Allergy Active Reason For Referral No Information Encounters Encounter Location Date Provider Diagnosis [facility] [address] [place], [place] [id number] 01/23/2024 JONNA SNOOK Tinea unguium B35.1 ; Pain in right toe(s) M79.674 ; Pain in left toe(s) M79.675 ; 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, bilateral legs I70.213 and Type 2 diabetes mellitus with other circulatory complications E11.59 [facility] [address] [place] [id number] 04/23/2024 JONNA SNWALEK Cellulitis of right lower limb L03.115 ; Venous insufficiency (chronic) (peripheral) I87.2 ; Tinea unguium B35.1 ; Pain in right toe(s) M79.674 ; Pain in left toe(s) M79.675 ; 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, bilateral [...] toe(s) (ICD-10 - M79.675) 01/23/2024 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, bilateral legs (ICD-10 - I70.213) 04/23/2024 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, bilateral [...] Of Treatment Next Appt Details Provider Name:JONNA LANGSTON, 08:30:00 AM, [address], [facility], [place], [place], [id number], Insurance Providers Payer Name Payer Address Payer Phone Subscriber Number Group Number Insured Name Patient Relationship to Insured Coverage Start Date Coverage End Date Medicare Part B [facility] [address] [place] [address] [id number] Otilia Lopez Self - patient is the insured
--- OUTSIDE RECORDS SUMMARY | 2024-07-07 15:48 | XMS_ITS | CONTINUITY OF CARE DOCUMENT ---
Author Name [email or web address] Address Unknown Organization [facility] Address [address] [place] [address] Phone [phone] Care Team Providers Care [employer] Technology Teacher Name Role Phone Chandan SANABRIA, Shanda Unavailable RAYMOND VILLEGAS MD Unavailable RAYMOND VILLEGAS MD Unavailable [phone] INSURANCE PROVIDERS Payer name Policy type / Coverage type Carpenter red libertarian ID [place] [employer] Medicare [id number] HEALTHCARE AND FAMILY SERVICES Medicaid 1 [id number]
--- OUTSIDE RECORDS SUMMARY | 2024-07-07 15:49 | XMS_ITS | Encounter Summary ---
Author Organization [facility] Address [address] [place] [address] Care Team Providers Care Project Portfolio Analyst Name Role Phone Ernesto Alfaro MD Primary Care Provider [phone] Encounter Details Date Type Department Care Team (Late st Contact Info) Description 03/08/2022 Telephone [facility] [address] [place] [address] Amita Zhang MD [address] [place] [address] Social History Tobacco Use Types Packs/Day Years [...] money to get more. 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 Answer Date of Assessment Author Yes 12/08/2021 9:32 PM CDT Ameis Br ittany C * Is person blind or have serious difficulty seeing? Answer Date of Assessment Author No 12/08/2021 9:32 PM CDT Ameis Br ittany C * Does person have serious difficulty walking/climbing stairs? Answer Date of Assessment Author No 12/08/2021 9:32 PM CDT Ameis Br ittany C * Does person have difficulty dressing/bathing? Answer Date of Assessment Author No 12/08/2021 9:32 PM CDT Ameis Br ittany C * Does person have difficulty doing errands alone? Answer Date of Assessment Author No 12/08/2021 9:32 PM CDT Ameis Br ittany C documented as of this encounter Mental Status * Does person have difficulty concentrating/remembering/making decisions? Answer Entry Date Author No 12/08/2021 9:32 PM CDT Ameis Br ittany C documented in this encounter Miscellaneous Notes * Telephone Encounter [...] to make that appointment. Call Back #: [phone] ANALYTICS documented in this encounter Plan of Treatment Upcoming Encounters Date Type Department Care Team (Late st Contact Info) Description 07/24/2024 1:30 PM CDT Appointment [facility] [address] [place] [phone] Ernesto Alfaro MD [address] [phone] 07/24/2024 2:20 PM CDT Office Visit [facility] - Hematology/Oncology [address] [place] [phone] Redd Middleton MD [address] [place] [phone] 08/02/2024 9:30 AM CDT Office Visit [facility] - General Surgery [address] [place] [phone] Sena Blum MD [address] [facility] [address] [place] [phone] 12/05/2024 10:00 AM CDT Appointment [facility] [address] [place] [phone] Kelsey Renner MD [address] [place] [phone] 02/11/2025 8:00 AM 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
--- OUTSIDE RECORDS SUMMARY | 2024-07-07 15:49 | XMS_ITS | Clinical Summary ---
Author Organization [facility] [employer] Address [address] [facility] [place] [address] Care Team Providers Care Carrot Harvester Name Role Phone Ernesto Alfaro MD Primary Care Provider Source Comments [facility],non-owned Affiliates and Associated Physician Practices is amultiple site organization consisting of ambulatory clinics and hospital sitesin [place], [place], [place] and [place]. This disclosure is being madepursuant to the Care Everywhere program and may not contain all information available regarding this patient. Last updated 17.[facility] Allergies Active Allergy Reactions Criticality Noted Date [...] document. Alwaysverify current medications with the patient. HYDROcodone-gasper taminophen (NORCO) 5-325 MG tablet Take 1 tablet by mouth every 8 hours as needed for Pain 15 tablet 09/12/19 20 Active apixaban (ELIQUIS) 5 MG tablet Take 1 (one) tablet by mouth 2 times daily 04/25/19 22 Active insulin aspart (NovoLOG) pen Inject 0 (zero) Units to 12 (twelve) Units subcutaneously 3 times daily with meals 03/12/20 23 Active DULoxetine (Cymbalta) 60 MG capsule Take 1 (one) capsule by mouth once daily 30 capsule 03/12/20 23 Active insulin glargine (Lantus/Semglee ) 100 units/mL pen Inject 15 (fifteen) Units subcutaneously at bedtime 200 mL 03/12/20 23 Active atorvastatin (Lipitor) 10 MG tablet Take 1 (one) tablet by mouth at bedtime 30 tablet 03/12/20 23 Active mometasone (Elocon) 0.1 % cream Apply to affected area once daily 45 g 3 09/08/19 24 Active dilTIAZem HCl Coated Beads (DILTIAZEM CD PO) Pt unsure of dose Ac tive acetaminophen (Tylenol) 500 MG capsule Take 2 (two) capsules by mouth every 6 hours as needed for Fever or Pain 200 capsule 1 10/27/19 24 Active ibuprofen (Advil) 200 MG capsule Take 2 (two) capsules by mouth every 6 hours as needed for Pain 200 capsule 1 10/27/19 24 Active docusate sodium (Colace) 100 MG capsule Take 1 (one) capsule by mouth once daily 30 capsule 1 10/27/19 24 Active ondansetron (Zofran) 8 MG tablet Take 1 (one) tablet by mouth every 6 hours as needed for Nausea/Vomiting 20 tablet 1 10/27/19 24 Active polyethylene glycol 3350 (Miralax) 17 GM/SCOOP powder Take 17 (seventeen) g by mouth once daily 10/27/19 24 Active amoxicillin-cla vulanate (Augmentin) 875-125 MG tablet Take 2 (two) tablets by mouth 2 times daily 14 tablet 11/19/19 24 Active diphenoxylate-a tropine (Lomotil) 2.5-0.025 MG tabletIndicatio ns:Diarrhea, unspecified type Take 1 (one) tablet by mouth 3 times daily as needed for Diarrhea 10 tablet 2 12/19/19 24 Active prochlorperazin e (Compazine) 10 MG tabletIndicatio ns:Cancer Chemotherapy-In duced Nausea and Vomiting Take 1 (one) tablet by mouth every 8 hours as needed for Nausea/Vomiting Reasons: Nausea and Vomiting caused by Cancer Chemotherapy 30 tablet 1 01/09/20 24 Active albuterol HFA (Proventil; Ventolin; Proair) 108 (90 Base) MCG/ACT inhaler Inhale 2 (two) puffs by mouth every 4 hours as needed 02/15/20 24 Active methylPREDNISol one (Medrol Dosepak) 4 MG tabletIndicatio ns:Viral upper respiratory tract infection Take by mouth as directed <!--EPICS-->Follow package insert dosing for six day supply.<!--EPICE-- > 21 tablet 04/09/19 25 Active benzonatate (Tessalon) 200 MG capsuleIndicati ons:Acute cough Take 1 (one) capsule by mouth 3 times daily as needed for Cough 60 capsule 04/17/19 25 Active gabapentin (Neurontin) 300 MG capsuleIndicati ons:Neuropathic Pain Take 1 (one) capsule by mouth 3 times daily Reasons: Neuropathic Pain 90 capsule 3 06/06/19 25 Active oxyCODONE, immediate release, (Roxicodone) 5 MG tabletIndicatio ns:Open knee wound, right, sequela Take 1 (one) tablet by mouth every 6 hours as needed 60 tablet 07/04/19 25 Active oxyCODONE, immediate release, (Roxicodone) 5 MG tabletIndicatio ns:Open knee wound, right, sequela Take 1 (one) tablet by mouth every 6 hours as needed 30 tablet 10/27/19 24 025 Discontin ued(Reord er) Active Problems Problem Noted Date Diagnosed Date Falls 07/03/2024 Fatigue 06/05/2024 Neuropathy 06/05/2024 Acute cough 04/17/2024 Encounter for immunotherapy 04/06/2024 [...] diabetes mellitus wit h hyperglycemia, unspecified whether chcf insulin use 12/17/2022 Nausea and vomiting, unspecified vomiting type 0 12/17/2022 Malignant neoplasm of upper- outer quadrant of left breast in female, estrogen receptor negative 11/15/2022 Cancer Staging:Clinical stage from 11/01/2022:Stage IIIB(cT2, cN1(f), cM0, G2, ER-, NE-, HER2-) - Signed by Sena Blum MD on 11/15/2022 Pathologic stage from 07/22/2023: ypT0, pN0(sn), cM0, G3, ER-, NE-, HER2- - Signed by Sena Blum MD [...] In 12/2016, had 2 lipomas removed from LUE, developed infection of the one over the antecubital fossa. Eventually referred to Dr. Ortez at [facility], underwent multiple I&Ds and Matristem placement. Finally [...] Encounters Date Type Department Care Team Description 07/03/2024 9:00 AM CDT [facility]olog [facility] [place] [phone] Karli Carpenter, SPECIAL NEEDS NANNY-RIVETER Malignant neoplasm of upper-outer quadrant of left breast in female, estrogen receptor negative (HCC) (Primary Dx); Nausea and vomiting, unspecified vomiting type; Hyperglycemia; Falls; Fatigue, unspecified type 07/03/2024 8:20 AM CDT - 07/03/2024 11:59 PM CDT Hospital Encounter [facility] [address] [place] [phone] Ernesto Alfaro MD Discharge Disposition: Home or Self Care 07/03/[address] [facility]Oncolog y [address] [place] [phone] Redd Middleton MD Open knee wound, right, sequela 07/03/2024 Travel 06/12/2024 Telephone [facility] [address] [place] [address] Candace Wilkes RN General 06/05/2024 11:00 AM CDT Office Visit [facility] - Hematology/Oncolog y [address] [place] [phone] Karli Carpenter, SPECIAL NEEDS NANNY-RIVETER Malignant neoplasm of upper-outer quadrant of left breast in female, estrogen receptor negative (Primary Dx); Nausea and vomiting, unspecified vomiting type; Fatigue, unspecified type; Neuropathy; Type 2 diabetes mellitus with hyperglycemia, unspecified whether manager terminal insulin use 06/05/2024 10:24 AM CDT - 06/05/2024 11:59 PM CDT Hospital Encounter [facility] [address] [place] [address] Ernesto Alfaro MD Discharge Disposition: Home or Self Care 06/05/2024 Travel 05/29/2024 Telephone [facility] [address] [place] [address] Candace Wilkes RN [facility] 05/29/2024 Orders Only [facility] - Rad/Onc [address] [place] [phone] Kelsey Renner MD 05/25/2024 Orders Only [facility] - Hematology/Oncolog y [address] [place] [phone] Redd Middleton MD Malignant neoplasm of upper-outer quadrant of left breast in female, estrogen receptor negative 04/17/2024 9:20 AM SALES REPRESENTATIVE SUPERVISOR Office Visit [facility] - Hematology/Oncolog y [address] [place] [phone] Karli Carpenter, SPECIAL NEEDS NANNY-RIVETER Acute cough (Primary Dx); Viral upper respiratory tract infection; Raynaud's disease without gangrene; Malignant neoplasm of upper-outer quadrant of left breast in female, estrogen receptor negative; Encounter for immunotherapy 04/17/2024 8:20 AM SALES REPRESENTATIVE SUPERVISOR - 04/17/2024 11:59 PM SALES REPRESENTATIVE SUPERVISOR Hospital Encounter [facility] [address] [place] [phone] Ernesto Alfaro MD Discharge Disposition: Home or Self Care 04/17/2024 Travel 04/10/2024 8:45 AM SALES REPRESENTATIVE SUPERVISOR Office Visit [facility] - Orthopedics [address] [place] [phone] Patrick Burgos, Fauzia Abad PA-C Other closed fracture of distal end of right femur, sequela (Primary Dx) 04/10/2024 Travel 04/09/2024 9:00 AM SALES REPRESENTATIVE SUPERVISOR Office Visit [facility] - Hematology/Oncolog y [address] [place] [phone] Karli Carpenter, SPECIAL NEEDS NANNY-RIVETER Malignant neoplasm of upper-outer quadrant of left breast in female, estrogen receptor negative (Primary Dx); Encounter for immunotherapy; Viral upper respiratory tract infection; High risk for chemotherapy-induced infectious complication; Nausea and vomiting, unspecified vomiting type; Diarrhea, unspecified type; Diabetic polyneuropathy associated with diabetes mellitus due to underlying condition 04/09/2024 8:12 AM SALES REPRESENTATIVE SUPERVISOR - 04/09/2024 11:59 PM SALES REPRESENTATIVE SUPERVISOR Hospital Encounter [facility] [address] [place] [address] Ernesto Alfaro MD Discharge Disposition: Home or Self Care 04/09/2024 Travel from Last 3 Months Immunizations Immunization Administration Dates Next Due INFLUENZA VACCINE, TRIV. [...] Recorded Patient Health Questionnaire-2 Score 0 08/12/2023 [facility] [place] [facility] Occupat ional Health - Occupational Stress [...] place to sleep or slept in a half-way (including now)? No 11/10/2023 Comments No Sex and Gender Information Value Date Recorded Sex Assigned at Not on file Legal Sex Female 5:54 PM SALES REPRESENTATIVE SUPERVISOR Gender Identity Female 09/24/2023 8:56 AM CDT Sexual Orientation Not on file Last Filed Vital Signs Vital Sign Reading Time Taken Comments Blood Pressure 106/56 07/03/2024 10:14 AM CDT copied per pt. Pulse 69 07/03/2024 10:14 AM CDT Temperature 36.7 C (98 F) 06/05/2024 10:54 AM CDT Respiratory Rate 18 07/03/2024 10:1 4 AM CDT Oxygen Saturation 98% 07/03/2024 10: 14 AM CDT Inhaled Oxygen Concentration 50% 10/2022 10:00 AM SALES REPRESENTATIVE SUPERVISOR Weight 72.7 kg (160 lb 3.2 oz) 07/03/2024 10:14 AM CDT Height 157.5 cm (5' 2.01 ) 02/27/2024 9 :13 AM SALES REPRESENTATIVE SUPERVISOR Body Mass Index 29.29 02/27/2024 9:13 AM SALES REPRESENTATIVE SUPERVISOR Plan of Treatment Upcoming Encounters Date Type Department Care Team (Late st Contact Info) Description 07/24/2024 1:30 PM CDT Appointment [facility] [address] [place] [phone] Ernesto Alfaro MD [address] [phone] 07/24/2024 2:20 PM CDT Office Visit [facility] - Hematology/Oncology [address] [place] [phone] Redd Middleton MD [address] [place] [phone] 08/02/2024 9:30 AM CDT [facility] General [facility] [address] [place] [phone] Sena Blum MD [address] [facility] [address] [place] [phone] 12/05/2024 10:00 AM CDT Appointment [facility] [address] [place] [address] Kelsey Renner MD [address] [place] [address] 02/11/2025 8:00 AM SALES REPRESENTATIVE SUPERVISOR Appointment [address] [phone] Health Maintenance Due Date Last Done Comments [...] SCREENING 10/25/2019 DIABETES-FOOT EXAM WITH MONOFILAMENT 10/25/2019 DEPRESSION SCREENING 03/21/2024 08/12/2023, 01/25/2023, 01/25/2023, Additional history exists DIABETES - URINE PROTEIN SCREENING 03/21/2024 MEDICARE AWV CALENDAR YEAR 2024 INFLUENZA VACCINE (Season Ended) 2024 12/27/2022, 12/02/2021, 11/28/2020, Additional history exists DIABETES-HGB A1C 12/06/2024 06/05/2024, , 05/04/2023, Additional history exists DIABETES-SERUM CREATININE 07/03/20252024, 06/05/2024, 04/17/2024, Additional history exists MAMMOGRAM 02/06/2026 02/07/2024, 06/20, [...] complete this topic MENINGOCOCCAL (Group B) VACCINE SHARED DECISION-MAKING Aged Out No longer eligible based on patient's age to complete this topic MENINGOCOCCAL GROUPS A/C/Y/W VACCINE Aged Out No longer eligible based on patient's age to complete this topic Goals Goal Patient Goal Type Associated Problems Recent Progress Patient-Stated? Author Skin Integrity General No Mer Carson RN Note: Expected end date: 4 weeks Skin integrity is maintained or improved. Interventions: Inspect under all devices; continue local wound care. Medical Devices Implanted Type Area Hair Dryer Device Identifier Shelf Expiration Date Model / Serial / Lot Graft Tissue Matristem [facility]atrix [facility] [id number] Implanted:Qty: 1 on 08/31/2017 by Juan Ortez MD at [facility] Left: Arm [employer] 06/19/2019 [id number] / [id number] / [id number] Description:Left AC wound Graft Tissue Cytal 19a60lz Mesh Brn - [id number] Implanted:Qty: 1 on 08/31/2017 by Juan Ortez MD at [facility] Left: Arm [employer] 06/19/2019 [id number] / [id number] / [id number] Description:Left Ac Graft Tissue Matristem Micromatrix Prcn - [id number] Implanted:Qty: 1 on 12/22/2017 by Juan Ortez MD at [facility] Right: Hand [employer] 03/20/2019 [id number] / [id number] / [id number] Mtrx Tissue 5x5cm Cytal Mesh Brn - [id number] Implanted:Qty: 1 on 12/22/2017 by Juan Ortez MD at [facility] Right: Hand [employer] 10/19/2019 [id number] / [id number] / [id number] Mtrx Tissue 5x5cm Cytal Mesh Brn - [id number] Implanted:Qty: 1 on 05/25/2018 by Juan Ortez MD at [facility] Right: Hand [employer] 12/19/2019 [id number] / [id number] / [id number] Mtrx Tissue 5x5cm Cytal Mesh Brn Implanted:Qty: 1 on 08/02/2018 by Juan Ortez MD at [facility] Right: Hand [employer] 06/18/2020 [id number] / / Mtrx Tissue Micromatrix Prcn Bldr - [id number] Implanted:Qty: 1 on 01/03/2019 by Juan Ortez MD at [facility] Right: Hand [employer] 09/17/2020 [id number] / [id number] / [id number] Mtrx Tissue 5x5cm Cytal Prcn Bldr Brn - [id number] Implanted:Qty: 1 on 01/03/2019 by Juan Ortez MD at [facility] Right: Hand [employer] 06/18/2020 [id number] / [id number] / [id number] Mtrx Tissue 5x5cm Gentrix Prcn Urn Bldr - [id number] Implanted:Qty: 1 on 05/23/2019 by Juan Ortez MD at [facility] Right: Hand [employer] 01/18/2021 [id number] / [id number] / [id number] Mtrx Tissue 5x5cm Cytal Prcn Bldr Brn - [id number] Implanted:Qty: 1 on 05/23/2019 by Juan Ortez MD at [facility] Right: Hand [employer] 11/18/2020 [id number] / [id number] / [id number] Mtrx Tissue Micromatrix Prcn Bldr - [id number] Implanted:Qty: 1 on 05/23/2019 by Juan Ortez MD at [facility] Right: Hand [employer] 01/18/2021 [id number] / [id number] / [id number] Mtrx Tissue Micromatrix Prcn Bldr - [id number] Implanted:Qty: 1 on 09/12/2019 by Juan Ortez MD at [facility] Right: Hand [employer] 11/18/2020 [id number] / [id number] / [id number] Mtrx Tissue 5x5cm Cytal Prcn Bldr Brn - [id number] Implanted:Qty: 1 on 09/12/2019 by Juan Ortez MD at [facility] Right: Hand [employer] 04/20/2021 [id number] / [id number] / [id number] Graft Bone Canc 4-9.5mm 15cc Frzdr [facility] - [id number] Implanted:Qty: 1 on 04/07/2021 by Cristo Lewis MD at [facility] Right: Ankle [employer] 11/16/2024 [id number] / [id number] / Hydromark Breast Biopsy Site Marker Implanted:Qty: 1 on 11/01/2022 by Norma Carrasquillo MD at [facility] Left: Axilla Dev[employer]or [id number] 12/03/2024 4009-05-05-T1 / / [id number] Ultracor Twirl Breast Tissue Marker Implanted:Qty: 1 on 11/01/2022 by Norma Carrasquillo MD at [facility] Left: Breast [employer] [id number] 07/16/2025 [id number] / / Port Implinfn Powerport Clrvu Argd Shanae Implanted:Qty: 1 on 11/24/2022 at [facility] Right: Chest [employer] 12/19/2023 [id number] / / [id number] Description:RIJ inserted by Dr. Lanza [facility] 3.5-4 Mm Penny Screw Nonster Implanted:Qty: 1 on 01/05/2023 by Patrick Burgos DO at [facility] Right: Knee [employer] [id number] / / Screw 4mm 5mm 80mm .5 Thrd Rvrs Cut Flut Implanted:Qty: 1 on 01/05/2023 by Patrick Burgos DO at [facility] Right: Knee [employer] [id number] / / Screw 3.5mm 5mm 75mm Ft Rvrs Cut Flut Implanted:Qty: 1 on 01/05/2023 by Patrick Burgos DO at [facility] Right: Knee [employer] [id number] / / Nail Im 13mm 34cm Ntr Nail Fem Rtrgd Ant Implanted:Qty: 1 on 01/05/2023 by Patrick Burgos DO at [facility] Right: Knee [employer] [id number] / / Pin Fx 355cm 3mm Fem Nonthread Rtrgd Ntr Implanted:Qty: 1 on 01/05/2023 by Patrick Burgos DO at [facility] Right: Knee [employer] [id number] / / Screw 6mm 3.5mm 85mm Ft Slf-Tap Fx Ang Implanted:Qty: 1 on 01/05/2023 by Patrick Burgos DO at [facility] Right: Knee [employer] [id number] / / Screw 6mm 3.5mm 85mm Ft Slf-Tap Fx Ang Implanted:Qty: 1 on 01/05/2023 by Patrick Burgos DO at [facility] Right: Knee [employer] [id number] / / Screw 6mm 3.5mm 75mm Ft Slf-Tap Fx Ang Implanted:Qty: 1 on 01/05/2023 by Patrick Burgos DO at [facility] Right: Knee [employer] [id number] / / Screw 5mm 3.5mm 40mm Ft Slf-Tap Fx Ang Implanted:Qty: 2 on 01/05/2023 by Patrick Burgos DO at [facility] Right: Knee [employer] [id number] / / Screw 4.5mm 34mm Ft Stef Nonster Bone Implanted:Qty: 2 on 01/05/2023 by Patrick Burgos DO at [facility] Right: Knee [employer] [id number] / / Explanted Type Area Hair Dryer Device Identifier Shelf Expiration Date Model / Serial / Lot 2.7 Locking Explanted:Qty: 1 on 04/07/2021 by Cristo Lewis MD at [facility] Right: Ankle [employer] [id number] / / Screw 3.5mm 12mm Slf-Tap Cortx Evos Strl Explanted:Qty: 1 on 04/07/2021 by Cristo Lewis MD at [facility] Right: Ankle [employer] [id number] / / 3.5 Cortical Explanted:Qty: 1 on 04/07/2021 by Cristo Lewis MD at [facility] Right: Ankle [employer] [id number] / / Screw 3.5mm 14mm Slf-Tap Lck Evos Strl Explanted:Qty: 1 on 04/07/2021 by Cristo Lewis MD at [facility] Right: Ankle [employer] [id number] / / 6 Hole Clamp Implanted:Qty: 1 on 03/25/2021 by Cristo Lewis MD at [facility] Explanted:Qty: 1 on 12/09/2021 by Cristo Lewis MD at [facility] Right: Ankle [employer] [id number] / / Clamp Extfix Jtx 10.5-4mm Mini Mr Sf Bar Implanted:Qty: 1 on 03/25/2021 by Cristo Lewis MD at [facility] Explanted:Qty: 1 on 12/09/2021 by Cristo Lewis MD at [facility] Right: Ankle [employer] [id number] / / 5x35 Pin Implanted:Qty: 2 on 03/25/2021 by Cristo Lewis MD at [facility] Explanted:Qty: 2 on 12/09/2021 by Cristo Lewis MD at [facility] Right: Ankle [id number] / / Pin Trc 50mm 5mm Jtx Lng Ti Ntrd Strl Implanted:Qty: 1 on 03/25/2021 by Cristo Lewis MD at [facility] Explanted:Qty: 1 on 12/09/2021 by Cristo Lewis MD at [facility] Right: Ankle [employer] [id number] / / 4x35 Pin Implanted:Qty: 1 on 03/25/2021 by Cristo Lewis MD at [facility] Explanted:Qty: 1 on 12/09/2021 by Cristo Lewis MD at [facility] Right: Ankle [id number] / / Bar Pin Implanted:Qty: 3 on 03/25/2021 by Cristo Lewsi MD at [facility] Explanted:Qty: 3 on 12/09/2021 by Cristo Lweis MD at [facility] Right: Ankle [employer] [id number] / / Post Extfix Jtx 30d Nonster Implanted:Qty: 2 on 03/25/2021 by Cristo Lewis MD at [facility] Explanted:Qty: 2 on 12/09/2021 by Cristo Lewis MD at [facility] Right: Ankle [employer] [id number] / / 300 Bar Implanted:Qty: 2 on 03/25/2021 by Cristo Lewis MD at [facility] Explanted:Qty: 2 on 12/09/2021 by Cristo Lewis MD at [facility] Right: Ankle [employer] [id number] / / Clamp Extfix Jtx 10.5mm Bar To Bar Mr Sf Implanted:Qty: 2 on 03/25/2021 by Cristo Lewis MD at [facility] Explanted:Qty: 2 on 12/09/2021 by Cristo Lewis MD at [facility] Right: Ankle [employer] [id number] / / T Plate 27 Implanted:Qty: 1 on 04/07/2021 by Cristo Lewis MD at [facility] Explanted:Qty: 1 on 12/09/2021 by Cristo Lewis MD at [facility] Right: Ankle [employer] [id number] / / 2.7 Cortical Implanted:Qty: 1 on 04/07/2021 by Cristo Lewis MD at [facility] Explanted:Qty: 1 on 12/09/2021 by Cristo Lewis MD at [facility] Right: Ankle [employer] [id number] / / 2.7 Cortical Implanted:Qty: 1 on 04/07/2021 by Cristo Lewis MD at [facility] Explanted:Qty: 1 on 12/09/2021 by Cristo Lewis MD at [facility] Right: Ankle [employer] [id number] / / Screw 2.7mm 4.5mm 32mm T8 2mm Slf-Tap Implanted:Qty: 1 on 04/07/2021 by Cristo Lewis MD at [facility] Explanted:Qty: 1 on 12/09/2021 by Cristo Lewis MD at [facility] Right: Ankle [employer] [id number] / / 2.7 Locking Implanted:Qty: 2 on 04/07/2021 by Cristo Lewis MD at [facility] Explanted:Qty: 2 on 12/09/2021 by Cristo Lewis MD at [facility] Right: Ankle [employer] [id number] / / 2.7 Locking Implanted:Qty: 1 on 04/07/2021 by Cristo Lewis MD at [facility] Explanted:Qty: 1 on 12/09/2021 by Cristo Lewis MD at [facility] Right: Ankle [employer] [id number] / / Screw 3.5mm 12mm Slf-Tap Cortx Evos Strl Implanted:Qty: 1 on 04/07/2021 by Cristo Lewis MD at [facility] Explanted:Qty: 1 on 12/09/2021 by Cristo Lewis MD at [facility] Right: Ankle [employer] [id number] / / 3.5 9 Hole Implanted:Qty: 1 on 04/07/2021 by Cristo Lewis MD at [facility] Explanted:Qty: 1 on 12/09/2021 by Cristo Lewis MD at [facility] Right: Ankle [employer] [id number] / / 3.5 Locking Implanted:Qty: 1 on 04/07/2021 by Cristo Lewsi MD at [facility] Explanted:Qty: 1 on 12/09/2021 by Cristo Lewis MD at [facility] Right: Ankle [employer] [id number] / / Screw 3.5mm 14mm Slf-Tap Lck Evos Strl Implanted:Qty: 2 on 04/07/2021 by Cristo Lewis MD at [facility] Explanted:Qty: 2 on 12/09/2021 by Cristo Lewis MD at [facility] Right: Ankle [employer] [id number] / / 3.5 Locking Implanted:Qty: 1 on 04/07/2021 by Cristo Lewis MD at [facility] Explanted:Qty: 1 on 12/09/2021 by Cristo Lewis MD at [facility] Right: Ankle [employer] [id number] / / 3.5 Locking Implanted:Qty: 1 on 04/07/2021 by Cristo Lewis MD at [facility] Explanted:Qty: 1 on 12/09/2021 by Cristo Lewis MD at [facility] Right: Ankle [employer] [id number] / / 3.5 Cortical Implanted:Qty: 1 on 04/07/2021 by Cristo Lewis MD at [facility] Explanted:Qty: 1 on 12/09/2021 by Cristo Lewis MD at [facility] Right: Ankle [employer] [id number] / / 3.5 Cortical Implanted:Qty: 1 on 04/07/2021 by Cristo Lewis MD at [facility] Explanted:Qty: 1 on 12/09/2021 by Cristo Lewis MD at [facility] Right: Ankle [employer] [id number] / / 1/3 Tubular Plate Implanted:Qty: 1 on 04/07/2021 by Cristo Lewis MD at [facility] Explanted:Qty: 1 on 12/09/2021 by Cristo Lewis MD at [facility] Right: Ankle [employer] [id number] / / 3.5 Cortical Implanted:Qty: 1 on 04/07/2021 by Cristo Lewis MD at [facility] Explanted:Qty: 1 on 12/09/2021 by Cristo Lewis MD at [facility] Right: Ankle [employer] [id number] / / Screw 4mm 40mm P/T Penny Hip Ss Strl Bone Implanted:Qty: 1 on 04/07/2021 by Cristo Lewis MD at [facility] Explanted:Qty: 1 on 12/09/2021 by Cristo Lewis MD at [facility] [place] Right: Ankle [employer] [id number] / / 3.5 Cortical Implanted:Qty: 1 on 04/07/2021 by Cristo Lewis MD at [facility] Explanted:Qty: 1 on 12/09/2021 by Cristo Lewis MD at [facility] Right: Ankle [employer] [id number] / / 3.5 Locking Implanted:Qty: 2 on 04/07/2021 by Cristo Lewis MD at [facility] Explanted:Qty: 2 on 12/09/2021 by Cristo Lewis MD at [facility] Right: Ankle [employer] [id number] / / 2.7 Cortical Implanted:Qty: 1 on 04/07/2021 by Cristo Lewis MD at [facility] Explanted:Qty: 1 on 12/09/2021 by Cristo Lewis MD at [facility] Right: Ankle [employer] [id number] / / Wire K 1.6mm 150mm 1 End Troc Pnt Ss Sm Explanted:Qty: 1 on 01/05/2023 at [facility] Right: Knee [employer] [id number] / / Screw 4mm 5mm 85mm .5 Thrd Rvrs Cut Flut Explanted:Qty: 1 on 01/05/2023 by Patrick Burgos DO at [facility] Right: Knee [employer] [id number] / / 2.0 K-Wire Explanted:Qty: 1 on 01/05/2023 by Patrick Burgos DO at [facility] Right: Knee [id number] / / Screw 6mm 3.5mm 80mm Ft Slf-Tap Fx Ang Explanted:Qty: 1 on 01/05/2023 by Patrick Burgos DO at [facility] Right: Knee [employer] [id number] / / Wshr Orth Ss 3.5-4 Mm Penny Screw Nonster Explanted:Qty: 1 on 01/05/2023 by Patrick Burgos DO at [facility] Right: Knee [employer] [id number] / / Screw 5mm 3.5mm 45mm Ft Fx Ang Hex Head Explanted:Qty: 1 on 01/05/2023 by Patrick Burgos DO at [facility] Right: Knee [employer] [id number] / / Procedures Procedure Name Priority Date/Time Associated Diagnosis Comments TSH [place]UC[place] 07/03/2024 10:06 AM CDT Malignant neoplasm of upper-outer quadrant of left breast in female, estrogen receptor negative (HCC) COMPREHENSIVE METABOLIC PANEL STAT 07/03/2024 10:06 AM CDT Malignant neoplasm of upper-outer quadrant of left breast in female, estrogen receptor negative (HCC) CBC W AUTO DIFFERENTIAL STAT 07/03/2024 10:06 AM CDT Malignant neoplasm of upper-outer quadrant of left breast in female, estrogen receptor negative (HCC) HEMOGLOBIN A1C Routine 06/05/2024 10:46 AM CDT TSH LUCILLE 06/05/2024 10:46 AM CDT Malignant neoplasm of upper-outer quadrant of left breast in female, estrogen receptor negative COMPREHENSIVE METABOLIC PANEL STAT 06/05/2024 10:46 AM CDT Malignant neoplasm of upper-outer quadrant of left breast in female, estrogen receptor negative CBC W AUTO DIFFERENTIAL STAT 06/05/2024 10:46 AM CDT Malignant neoplasm of upper-outer quadrant of left breast in female, estrogen receptor negative PLATELET COUNT AUTO CITRATED BLOOD STAT 04/17/2024 11:10 AM SALES REPRESENTATIVE SUPERVISOR TSH LUCILLE 04/17/2024 8:43 AM SALES REPRESENTATIVE SUPERVISOR Malignant neoplasm of upper-outer quadrant of left breast in female, estrogen receptor negative COMPREHENSIVE METABOLIC PANEL STAT 04/17/2024 8:43 AM SALES REPRESENTATIVE SUPERVISOR Malignant neoplasm of upper-outer quadrant of left breast in female, estrogen receptor negative CBC W AUTO DIFFERENTIAL STAT 04/17/2024 8:43 AM SALES REPRESENTATIVE SUPERVISOR Malignant neoplasm of upper-outer quadrant of left breast in female, estrogen receptor negative TSH LUCILLE 04/09/2024 8:42 AM SALES REPRESENTATIVE SUPERVISOR Malignant neoplasm of upper-outer quadrant of left breast in female, estrogen receptor negative COMPREHENSIVE METABOLIC PANEL STAT 04/09/2024 8:42 AM SALES REPRESENTATIVE SUPERVISOR Malignant neoplasm of upper-outer quadrant of left breast in female, estrogen receptor negative CBC W AUTO DIFFERENTIAL STAT 04/09/2024 8:42 AM SALES REPRESENTATIVE SUPERVISOR Malignant neoplasm of upper-outer quadrant of left breast in female, estrogen receptor negative MAMMO BILAT DIAGNOSTIC W CHARLES Routine 02/07/2024 9:00 AM SALES REPRESENTATIVE SUPERVISOR Malignant neoplasm of upper-outer quadrant of left breast in female, estrogen receptor negative HEPATITIS C AB SCREEN RFLX NAAT QUANT Routine 11/10/2023 11:36 AM CDT from Last 3 Months or Most Recently Relevant to Health Maintenance Results * (ABNORMAL) CBC W/ DIFFERENTIAL (07/03/2024 10:06 AM CDT) Only the most recent of4 resultswithin the time period is included. WBC 5.6 4.0 - 10.7 x10E9/L 07/03/2024 10:20 AM [facility] RBC Count 3.31(L) 3.90 - 5.20 x10E12/L 07/03/2024 10:20 AM [facility] Hemoglobin 10.5(L) 11.9 - 15.8 g/dL 07/03/2024 10:20 AM [facility] Hematocrit 32.5(L) 34.8 - 46.1 % 07/03/2024 10:20 AM [facility] MCV 98.2(H) 80.0 - 98.0 fL 07/03/2024 10:20 AM [facility] MCH 31.7 26.7 - 33.6 pg 07/03/2024 10:20 AM [facility] MCHC 32.3 31.7 - 36.3 g/dL 07/03/2024 10:20 AM [facility] RDW-CV 15.6(H) 11.3 - 14.8 % 07/03/2024 10:20 AM [facility] Platelet Count 173 150 - 420 x10E9/L 07/03/2024 10:20 AM [facility] MPV 11.1 7.8 - 11.4 fL 07/03/2024 10:20 AM [facility] Preliminary Absolute Neutrophil 4.16 1.60 - 7.50 x10E9/L 07/03/2024 10:20 AM [facility] Neutrophil % 74.7(H) 41.0 - 74.0 % 07/03/2024 10:20 AM [facility] Lymphocyte % 14.5(L) 17.0 - 47.0 % 07/03/2024 10:20 AM [facility] Monocyte % 8.6 3.0 - 11.0 % 07/03/2024 10:20 AM [facility] Eosinophil % 1.6 0.0 - 7.0 % 07/03/2024 10:20 AM [facility] Basophil % 0.4 0.0 - 1.6 % 07/03/2024 10:20 AM [facility] Immature Granulocytes % 0.2 0.0 - 1.0 % 07/03/2024 10:20 AM [facility] Neutrophil Absolute 4.16 1.60 - 7.50 x10E9/L 07/03/2024 10:20 AM [facility] Lymphocyte Absolute 0.81(L) 1.00 - 4.40 x10E9/L 07/03/2024 10:20 AM [facility] Monocyte Absolute 0.48 0.15 - 1.00 x10E9/L 07/03/2024 10:20 AM [facility] Eosinophil Absolute 0.09 0.00 - 0.60 x10E9/L 07/03/2024 10:20 AM [facility] Basophil Absolute 0.02 0.00 - 0.13 x10E9/L 07/03/2024 10:20 AM [facility] Blood BLOOD SPECIMEN / Unknown Venipuncture / Unknown 07/03/2024 10:06 AM CDT 07/03/2024 10:15 AM CDT us Redd Middleton MD LAB - HEMATOLOGY ORDERABLES Fi nal Result [address] [address], [facility] [phone] * (ABNORMAL) COMPREHENSIVE METABOLIC PANEL (07/03/2024 10:06 AM CDT) Only the most recent of4 resultswithin the time period is included. BUN 11 7 - 26 mg/dL 07/03/2024 10:54 AM [facility] Creatinine 0.83 0.56 - 0.96 mg/dL 07/03/2024 10:54 AM [facility] Sodium 134(L) 136 - 145 mmol/L 07/03/2024 10:54 AM [facility] Potassium 5.5(H) 3.5 - 4.5 mmol/L 07/03/2024 10:54 AM [facility] Chloride 105 98 - 107 mmol/L 07/03/2024 10:54 AM [facility] CO2 20(L) 22 - 29 mmol/L 07/03/2024 10:54 AM [facility] Glucose 250(H) 70 - 99 mg/dL 07/03/2024 10:54 AM [facility] Calcium 8.5 8.4 - 10.2 mg/dL 07/03/2024 10:54 AM [facility] Protein Total 6.5 6.0 - 8.3 g/dL 07/03/2024 10:54 AM [facility] Albumin 2.7(L) 3.4 - 5.0 g/dL 07/03/2024 10:54 AM [facility] Bilirubin Total 0.3 0.2 - 1.2 mg/dL 07/03/2024 10:54 AM [facility] Alkaline Phosphatase 78 40 - 150 U/L 07/03/2024 10:54 AM [facility] ALT 12 5 - 55 U/L 07/03/2024 10:54 AM [facility] AST 18 5 - 34 U/L 07/03/2024 10:54 AM [facility] Anion Gap 9 6 - 16 07/03/2024 10:54 AM [facility] BUN/Creatinine Ratio 13 7 - 23 07/03/2024 10:54 AM [facility] Osmolality Calculated 286 275 - 295 mOsm/kg 07/03/2024 10:54 AM [facility] Albumin/Globulin Ratio 0.7(L) 1.1 - 2.3 07/03/2024 10:54 AM [facility] eGFR by CKD-EPI 74(L) >=90 mL/min/1.7 3 m2 07/03/2024 10:54 AM CDT [facility] Blood BLOOD SPECIMEN / Unknown Venipuncture / Unknown 07/03/2024 10:06 AM CDT 07/03/2024 10:13 AM CDT Redd Middleton MD LAB - CHEMISTRY ORDERABLES Fin al Result [facility] [address] [place] [address], [place] [phone] * TSH (07/03/2024 10:06 AM CDT) Only the most recent of4 resultswithin the time period is included. TSH 2.234 0.350 - 4.940 uIU/mL 07/03/2024 11:06 AM CDT [facility] Blood BLOOD SPECIMEN / Unknown Venipuncture / Unknown 07/03/2024 10:06 AM CDT 07/03/2024 10:13 AM CDT Redd Middleton MD LAB - CHEMISTRY ORDERABLES Fin al Result Performing Organization Address City/[facility]/ZIP Co de Phone Number [facility] [address] [place] [address], [place] [phone] * (ABNORMAL) HEMOGLOBIN A1C (06/05/2024 10:46 AM CDT) Hemoglobin A1c 10.9(H) <=5.6 % 06/05/2024 1:50 PM CDT [facility] Estimated Average Glucose 266 mg/dL 06/05/2024 1:50 PM CDT [facility] Comment: HbA1c Interpretation: Normal : < 5.7% Pre-diabetes: 5.7-6.4% Diabetes: Equal to or greater than 6.5% Test results diagnostic of diabetes should be repeated for confirmation. Treatment target values recommended by ADA and other clinical organizations should be used to evaluate metabolic control in patients. Reference: [place] Diabetes [employer], Standards of Care in Diabetes -2020 In patients 70 years and older consider HbA1c target range of 7.0-7.5% (Reference: Silvio Elliott et al. JAMDA. 2012) The Sebia assay for the measurement of HbA1c is a National Glycohemoglobin Standardization Program (NGSP) certified method. Blood BLOOD SPECIMEN / Unknown Venipuncture / Unknown 06/05/2024 10:46 AM CDT 06/05/2024 10:58 AM CDT Karli Carpenter [facility] LAB - CHEMISTRY ORDERA BLES Final Result Performing Organization Address City/[facility]/ZIP Co de Phone Number [address] [address], [place] [phone] * PLATELET COUNT AUTO CITRATED BLOOD (04/17/2024 11:10 AM SALES REPRESENTATIVE SUPERVISOR) Platelet Count Citrated 04/17/2024 12:44 PM SALES REPRESENTATIVE SUPERVISOR [facility] Comment:Unable to report Blood BLOOD SPECIMEN / Unknown Venipuncture / Unknown 04/17/2024 11:10 AM SALES REPRESENTATIVE SUPERVISOR 04/17/2024 11:18 AM SALES REPRESENTATIVE SUPERVISOR Redd Middleton MD LAB - HEMATOLOGY ORDERABLES Fi nal Result Performing Organization Address [facility] Co de Phone Number [address] [address], [place] [phone] * Mammo Bilat Diagnostic W Charles (02/07/2024 9:00 AM SALES REPRESENTATIVE SUPERVISOR) Anatomical Region Laterality Modality Breast Bilateral Mammography 02/07/2024 8:25 AM SALES REPRESENTATIVE SUPERVISOR Impressions 02/07/2024 10:42 AM SALES REPRESENTATIVE SUPERVISOR IMPRESSION: No mammographic evidence of malignancy in [...] 2: BENIGN. Report dictated by Monica SULLIVAN, FRDELANEY (breast imaging fellow). I, Alondra Mancia DO have personally reviewed and interpreted this examination/study. > Interpreting Provider: Alondra Mancia DO on 02/07/2024 10:42 AM Narrative 02/07/2024 10:42 AM SALES REPRESENTATIVE SUPERVISOR EXAMINATIONS: BILATERAL DIGITAL DIAGNOSTIC MAMMOGRAM AND BREAST TOMOSYNTHESIS LOCATION: [facility] EXAM DATE: 02/07/2024 HISTORY: Prior history of [...] thickening is most consistent with postradiation change. us Kelsey Renner MD MAMMO ORDERABLES Final Res ult * HEPATITIS C AB SCREEN RFLX NAAT QUANT (11/10/2023 11:36 AM CDT) Hepatitis C Antibody Non-react alia Non-reac tive 11/10/2023 12:29 PM CDT [facility] Comment:Hepatitis C Antibody screen indicates [...] 11:36 AM CDT 11/10/2023 11:40 AM CDT us Terence Brizuela MD LAB - CHEMISTRY ORDERABLES Fi nal Result [facility] [address] [place] [address], [facility] [phone] from Last 3 Months or Most Recently Relevant to Health Maintenance Additional Health Concerns Infection Onset Date Last Indicated MRSA Hx 06/07/2023 06/07/2023 Insurance MEDICAID - [facility] MEDICARE ADV HMO & PPO Advance Directives * Full Code (Latest Code [...] 3:22 PM 01/12/2023 7:07 PM Care Teams Carrot Harvester Relationship Specialty Start Date End Date Ernesto Alfaro MD [address] [place] [address] PCP - General 01/03/17
--- OUTSIDE RECORDS SUMMARY | 2024-07-07 15:49 | XMS_ITS ---
Author Organization [facility] Address [address] [facility] [address] [place], [place] [id number] Care Team Providers Care Ball Sorter Name Role Phone JONNA LANGSTON Unavailable [phone] Ernesto Alfaro Unavailable Unavailable REASON FOR VISIT cellulitis check Encounters Encounter Location Date Provider Diagnosis [facility] [address] [place], [place] [id number] 05/14/2024 JONNA LANGSTON Plan Of Treatment Next Appt Details Provider Name:JONNA LANGSTON, 08:30:00 AM, [address], [place], [place], [id number], Progress Notes * Brigido CARDENASOB:[birth year] (74 yo F)Acc No.[id number]:05/14/2024 Patient: Otilia [place] Provider: Larry Langston DPM :1950 A ge:74 Y S ex:Female Date:05/14/2024 Address:[address] [place] [id number] Subjective: * Chief Complaints: * 1 . Cellulitis check. * Medical History: Objective: * Vitals: Assessment: Plan: * Treatment: * Billing Information: * Visit Code: * Procedure Codes: * Electronic signature of JONNA LANGSTON DPM on 07/07/2024 at 03:49 PM CDT Sign off status: Pending * Provider: Larry Langston DPM Date: 0 05/14/2024 Generated for Printi ng/Faxing/eTransmitting on: 0 07/07/2024 03:49 PM CDT
--- OUTSIDE RECORDS SUMMARY | 2024-07-07 15:49 | XMS_ITS ---
Author Organization [facility] Address [address] [place] [address] Care Team Providers Care Candy Depositing Machine Operator Name Role Phone Ernesto Alfaro MD Primary Care Provider [phone] Active Problems Problem Noted Date Diagnosed Date [...] diabetes mellitus wit h hyperglycemia, unspecified whether alf insulin use 12/17/2022 Nausea and vomiting, unspecified vomiting type 0 12/17/2022 Malignant neoplasm of upper- outer quadrant of left breast in female, estrogen receptor negative 11/15/2022 Cancer Staging:Clinical stage from 11/01/2022:Stage IIIB(cT2, cN1(f), cM0, G2, ER-, [place]-, HER2-) - Signed by Sena Blum MD on 11/15/2022 Pathologic stage from 07/22/2023: ypT0, pN0(sn), cM0, G3, ER-, [place]-, HER2- - Signed by Sena Blum MD [...] In 12/2016, had 2 lipomas removed from [facility], developed infection of the one over the antecubital fossa. Eventually referred to Dr. Ortez at [facility], underwent multiple I&Ds and Matristem placement. Finally [...] Trigger finger, right ring finger 10/31/2017 Current Treatment and Therapy Plans BREAST MET (PEMBROLIZUMAB) Q21 DAYS* Plan Start Date:09/05/2023 Plan Provider:Redd Middleton MD Linked Problems Malignant neoplasm of upper- outer quadrant of left breast in female, estrogen receptor negative (HCC) Treatment Medications Current Day (Day 1 , Cycle 12 - Planned for 07/24/2024) Next Day (Day 1, Cycle 13 - Planned for 08/14/2024) pembrolizumab (Keytruda) Infusion pembrolizumab (Keytruda) 200 mg in NaCl IV 0.9 % 108 mL infusion pembrolizumab (Keytruda) 200 mg in NaCl IV 0.9 % 108 mL infusion Past Treatment and Therapy Plans ONCOLOGY TREATMENT Plan Name Start Date [...] of 17 cycles started Radiation Treatments * Course C1_LBreast&Nodes 08/30/2023 - 09/23/2023 Treatment Period Energy Fraction Dose Fractions Total Dose Plans Planned #LBreast+Nds* 08/30/2023 - 09/23/2023 4,800 cGy Reference Points Delivered PTV_Lump_Eval_L 08/30/2023 - 09/23/2023 4,800 cGy Lifetime Dose Tracking * Chemical [...]
--- OUTSIDE RECORDS SUMMARY | 2024-07-07 15:49 | XMS_ITS ---
Author Organization [facility] Address [address] [place], [place] [address] Care Team Providers Care Medical Assistant Instructor Name Role Phone IVIS JONNA Unavailable [phone] Ernesto Alfaro Unavailable Unavailable Allergies Allergen (clinical [...] Location Date Provider Diagnosis [facility] [address] [place], [place] [id number] 04/23/2024 JONNA LANGSTON Cellulitis of right lower limb L03.115 ; Venous insufficiency (chronic) (peripheral) I87.2 ; Tinea unguium B35.1 ; Pain in right toe(s) M79.674 ; Pain in left toe(s) M79.675 ; Atherosclerosis of [place] arteries of extremities with intermittent claudication, bilateral [...] toe(s) (ICD-10 - M79.675) 04/23/2024 Atherosclerosis of [place] arteries of extremities with intermittent claudication, bilateral [...] sooner if problems develop. Provider Name:JONNA LANGSTON, 08:30:00 AM, [address], [facility], [place], [place], [phone], Progress Notes * Brigido TENORIOOB:[birth year] (74 yo F)Acc No.[id number]:04/23/2024 Patient: Otilia LA Provider: Larry Langston DPM :1950 A ge:73 Y S ex:Female Date:04/23/2024 Address:[address] [place], [place] [id number] Subjective: * Chief Complaints: * 1 . [...] g reater than 3 seconds. Edema: m koz-oc-dniaymdh edema bilateral, right is greater than left. [...] & #160; 6 . A therosclerosis of [place] arteries of extremities with intermittent claudication, bilateral [...] develop.) * Billing Information: * Visit Code: 09119 Office Visit, Est Pt., Level 3. * Procedure Codes: * Electronic signature of JONNA LANGSTON DPM on 07/07/2024 at 03:48 PM CDT Sign off status: Pending * Provider: Larry Langston DPM Date: 0 04/23/2024 Generated for Parker michaud/Corey/[place] on: 0 07/07/2024 03:48 PM CDT History and Physical Notes * HPI (History [...] Vascular Dorsalis pedis pulse: 1/4 bilateral Edema: zosx-vl-iblbeuuf braxton ma bilateral, right is greater than left Capillary refill: greater than 3 secon ds Posterior tibial pulse: 0/4 bilateral Physical Examination General appearance: Alert, pleasant, well-nourished and in no acute distress Musculoskeletal Muscle Strength Muscle strength is 5/5 in regards to dorsiflexion, plantarflexion, inversion, and eversion in bilateral lower extremities
--- OUTSIDE RECORDS SUMMARY | 2024-07-07 15:49 | XMS_ITS ---
Author [facility] Address [address] [place], [place] [address] Care Team Providers Care Acupressurist Name Role Phone YOUSUFChely JONNA Unavailable [phone] Ernesto Alfaro Unavailable Unavailable REASON FOR VISIT Patient presents for at-risk foot care . The patient has painful toenails that are causing difficulty with ambulation and shoegear. The onset is gradual. The patient has diabetes mellitus Encounters Encounter Location Date Provider Diagnosis [facility] [address] [place], [place] [phone] 01/23/2024 JONNA LANGSTON Tinea unguium B35.1 ; Pain in right toe(s) M79.674 ; Pain in left toe(s) M79.675 ; Atherosclerosis of [place] arteries of extremities with intermittent claudication, bilateral [...] toe(s) (ICD-10 - M79.675) 01/23/2024 Atherosclerosis of [place] arteries of extremities with intermittent claudication, bilateral [...] problems develop. Provider Name:JONNA LANGSTON, 08:30:00 AM, [address], [address], [phone], Progress Notes * Brigido CARDENASOB:[birth year] (74 yo F)Acc No.[id number]:01/23/2024 Progress Notes Patient: Otilia LA Provider: Larry Langston DPM :1950 A ge:73 Y S ex:Female Date:01/23/2024 Address:[address] [place], [place] [id number] Subjective: * Chief Complaints: * 1 . Patient presents for at-risk foot care . The patient has painful toenails that are causing difficulty with ambulation and shoegear. The onset is gradual. The patient has diabetes mellitus. * HPI: H PI: General care P atient presents to the office for at risk [...] difficulty speaking, dizziness. * Medical History: * Medications: N one Objective: * Vitals: * Examination: P hysical [...] - M79.675 4 . A therosclerosis of [place] arteries of extremities with intermittent claudication, bilateral [...] Amputation Prevention Guide. * Follow Up: 1 0 - 12 weeks (Reason: At-Risk Foot care, sooner if problems develop.) * Billing Information: * Visit Code: 93704 Office Visit, New Pt., Level 3. * Procedure Codes: * Electronic signature of JONNA LANGSTON DPM on 07/07/2024 at 03:49 PM CDT Sign off status: Pending * Provider: Larry Langston DPM Date: 1 03/24/2023 Generated for Parker Boss/[place] on: 0 07/07/2024 03:49 PM CDT History and Physical Notes * [...]
--- OUTSIDE RECORDS SUMMARY | 2024-07-07 15:49 | XMS_ITS | Clinical Summary ---
Author Organization Crunched KHADIJAH STOVALL [facility] Address [address] [facility] [facility] [place] [address] Care Team Providers Care Hospital Librarian Name Role Phone Ernesto Alfaro MD Primary Care Provider [phone] Allergies Active Allergy Reactions Criticality Noted Date [...] take with food or milk Active Insulin Harvey, Disposable, (Novofine 32) 32 gauge x 1/4 Needle by [facility].(Non-Drug; Combo Route) route. 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
--- OUTSIDE RECORDS SUMMARY | 2024-07-07 15:49 | XMS_ITS ---
Author Organization [facility] - Care Team Providers Care Design Chief Name Role Phone Hazel Taylor Unavailable Unavailable Carmicheal, Crystal Unavailable Unavailable Edgard, Odalis Flores) Kiki Unavailable Unavailable Bharati, Jaclyn Unavailable Unavailable [place], Fidel Unavailable Unavailable Allergies and adverse reactions Code CodeSystem Substance Reaction Severity StartDate Concern Status 302321174 SNOMED CT Quinolones Moderate 04/25/2021 activ e 9071 RXNORM quiNINE Moderate 04/25/2021 active 2231 RXNORM Cephalexin Moderate 04/25/2021 active 1191 RXNORM Aspirin Moderate 04/25/2021 active Care Team Name Role Address Phone Organization Dates Hazel Taylor PCP [address] [place], [place], [facility], [place] (Office): : : [facility] 04/25/2021 - 05/14/2021 Nakia Jauregui Attending Physician [address] [place], [place], [facility], [place] (Office): : : [facility] 04/25/2021 - 05/14/2021 Odalis Flores) Kiki Rene Attending Physician [address] [place], [address], [place] (Office): : : [facility] 04/25/2021 - 05/14/2021 Jaclyn Calabrese Attending Physician [address] [place], [address], [place] (Office): : [facility] 04/25/2021 - 05/14/2021 Fidel Santiago Attending Physician [address] [place], [address], [facility] (Office): : : [facility] 04/25/2021 - 05/14/2021 Goals Section Description Status Target Date Assure adequate nutrition as shown by no weight loss by next review. Active 05/28/2021 Chyna will improve current l evel of function in ADL's through the review date. Resident will be able to: wash face and hands, comb hair and perform oral care with set-up help and SBA. Active 0 05/28/2021 Chyna will increase level of mobility by performing AROM to all extremities through the next review date. Active 05/28/2021 Chyna will resume usual acti vities without further incident through the review date. Active 05/28/2021 The resident will express sa tisfaction with type of activities and level of activity involvement when asked through the review date. Active 05/28/2021 Immunizations Immunization Status Vaccine Details Vaccine Code CodeSystem Date Notes Influenza completed Influenza, split virus, trivalent, injectable, contains preservative Given intramuscularly 141 CVX created date: 04/27/2021 administere d date: 11/28/2020 Pneumococcal PCV 13 completed pneumococcal conjugate vaccine, 13 valent Given intramuscularly 133 CVX created date: 04/27/2021 administere d date: 12/27/2016 Pneumococcal PPV 23 completed pneumococcal polysaccharide vaccine, 23 valent Given intramuscularly 33 CVX created date: 04/27/2021 administere d date: 08/10/2018 Mental Status Section Date Assessment Total Score Description 05/14/2021 CAM 0 No delirium ind icated 05/08/2021 BIMS 15 cognitively int act CAM 0 No delirium ind icated PHQ-9 05 mild depression Problems Problem # Description Date of onset Resolved Date Code CodeSystem Concern Status 1 ACQUIRED ABSENCE OF LEFT FINGER(S) 04/25/[address] active 2 ACQUIRED ABSENCE OF RIGHT FINGER(S) 04/25/[address] active 3 ACUTE POSTHEMORRHAGIC ANEMIA 04/25/[address] active 4 ANEMIA, UNSPECIFIED 04/25/[address] active 5 CHRONIC OBSTRUCTIVE PULMONARY DISEASE, UNSPECIFIED 04/25/[address] active 6 DEPRESSION, UNSPECIFIED 04/25/[address] active 7 EMPHYSEMA, UNSPECIFIED 04/25/[address] active 8 ESSENTIAL (PRIMARY) HYPERTENSION 04/25/[address] active 9 HISTORY OF FALLING 04/25/[address] active 10 HYPERLIPIDEMIA, UNSPECIFIED 04/25/[address] active 11 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 04/25/[address] active 12 LOW BACK PAIN, UNSPECIFIED 04/25/[address] active 13 OBESITY, UNSPECIFIED 04/25/[address] active 14 OTHER FRACTURE OF UNSPECIFIED LOWER LEG, SUBSEQUENT ENCOUNTER FOR CLOSED FRACTURE WITH ROUTINE HEALING 04/25/[address] active 15 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 04/25/[address] active 16 SYSTEMIC INFLAMMATORY RESPONSE SYNDROME (SIRS) OF NON-INFECTIOUS ORIGIN WITHOUT ACUTE ORGAN DYSFUNCTION 04/25/[address] active 17 TYPE 2 DIABETES MELLITUS WITHOUT COMPLICATIONS 04/25/[address] active 18 UNSPECIFIED ATRIAL FIBRILLATION 04/25/[address] active 19 UNSPECIFIED CHRONIC BRONCHITIS 04/25/[address] active 20 UNSPECIFIED SENSORINEURAL HEARING LOSS 04/25/[address] active Reason for Referral No Reasons for Referral Entered Social History Social History Observation Description Start Date End Date Code Code System Current Smoking Status Tobacco smoking consumption unknown 816691538 SNOMED CT Sex Assigned At Female 1950 [address]4060-8 [facility] Vital Signs Code Code System Vitals Name Values and Units Timing Information 2339-0 [facility] Blood Sugar Rjqiv=321.0 Units=mg/dL 05/14/2021 62526-5 [facility] Pain Level Value=0.0 05/14/2021 8310-5 [facility] Body Temperature Value=97.1 Units= F 05/11/2021 91863-9 [facility] O2 % BldC Oximetry Value=97.0 Units= % 05/11/2021 18999-7 [facility] Weight Cifny=344.2 Units=Lbs 8302-2 [facility] Height Value=63.0 Units=Inches 04/27/2021 9279-1 [facility] Respiratory Rate Value=20.0 Units=/m in 04/25/2021 8462-4 [facility] Blood Pressure-Diastolic Value=65 Un its=mmHg 04/25/2021 8480-6 [facility] Blood Pressure-Systolic Bwoki=480 Un its=mmHg 04/25/2021 8867-4 [facility] Heart rate Value=76.0 Units=/min 07/2021
--- NOTE | 2024-07-07 15:55 | ECG_ITS ---
Test Date: 2024-07-07 16:02:58 Measurements Intervals [place] Rate: 58 P: 44 NE: 146 QRS: 24 QRSD: 71 T: 25 QT: 391 QTc: 387 Interpretive Statements SINUS BRADYCARDIA MINIMAL Q WAVES- INFERIOR LEADS CONSIDER ANTERIOR INFARCT, AGE INDETERMINATE BASELINE ARTIFACT- I, II, III, AVR, AVL, AVF, V6 ABNORMAL ECG Compared to ECG 05/08/2024 23:09:09 HEART RATE HAS DECREASED Electronically Signed On 07-08-2024 08:38:33 CDT by Mejia Fulton D.O.
[2024-07-07 16:13] LABS: Glucose Point of Care 200 mg/dl (65-105)
--- NOTE | 2024-07-07 16:24 | ED_ITS ---
HPI - General Adult General Chief complaint: Unspecified <JORGE Bartlett Last Filed: 07/07/24 22:11> Stated complaint: Confused, unknown BGL (lost monitor) <JORGE Bartlett Last Filed: 07/07/24 22:11> Time Seen by Provider: 07/07/24 15:57 <JORGE Bartlett Last Filed: 07/07/24 22:11> Source: patient and family <JORGE Bartlett Last Filed: 07/07/24 22:11> Mode of arrival: ambulatory <JORGE Bartlett Last Filed: 07/07/24 22:11> Limitations: no limitations <JORGE Bartlett Last Filed: 07/07/24 22:11> History of Present Illness HPI narrative: Patient is a 74 y/o female, with PMH with DM, COPD, AFIB on eliquis, Raynaud's disease, who presents to the ED with c/o confusion. Daughter at bedside assisted in providing information. Reports patient has been increasingly weak and confused over the past couple of days. She states the patient did not know where her glucose monitor was, thought her bedside commode was her walker and tried taking this to the kitchen, has had decreased PO intake, c/o intermittent HAs. She did have a fall last week and sustained a small skin tear to her R lower leg. Patient denies pain associated with this. Hx of previous ankle fracture and chronic pain r/t this. Patient denies fevers, chest pain, shortness breath, dizziness, fevers, cough or cold symptoms, focal numbness or weakness. <JORGE Bartlett Last Filed: 07/07/24 22:11> Related Data Home medications: Home Medications ?Medication ?Instructions ?Recorded ?Confirmed ?Last Taken ?Type albuterol sulfate 90 mcg/actuation 2 inh inhalation PRN PRN SOB 07/14/20 07/08/24 Unknown History aerosol inhaler gabapentin 300 mg capsule 300 mg PO TID 07/14/20 07/08/24 07/23/20 History diltiazem HCl 120 mg 120 mg PO DAILY 12/07/21 07/08/24 04/27/24 History capsule,extended release 24 hr, controlled (DILT-XR) insulin aspart U-100 100 unit/mL 1 sliding scale dose subcut 05/01/24 07/08/24 Unknown History (3 mL) subcutaneous pen TIDWMEAL <Jeane Durham PA-C - Last Filed: 07/07/24 22:11> Allergies/adverse reactions: Allergies Allergy/AdvReac Type Severity Reaction Status Date / Time eucalyptus Allergy Intermediate BLISTERS Verified 12/02/23 15:53 quinine Allergy Intermediate HIVES Verified 12/02/23 15:53 cephalexin Allergy Unknown Itching Verified 05/07/24 12:26 levofloxacin Allergy Unknown Unknown Verified 12/02/23 15:53 menthol Allergy Unknown BLISTERS Verified 12/02/23 15:53 Quinolones Allergy Unknown Verified 12/02/23 15:53 aspirin AdvReac Unknown Vomiting Verified 12/02/23 15:53 <Jeane Durham PA-C - Last Filed: 07/07/24 22:11> Review of Systems 2 Review of Systems: All systems reviewed & are unremarkable except as noted in HPI. <Jeane Durham PA-C - Last Filed: 07/07/24 22:11> All systems reviewed & are unremarkable except as noted in HPI and below < Jeane Durham PA-C - Last Filed: 07/07/24 22:11> [facility] Past Medical History Medical History: Medical History Paroxysmal atrial fibrillation Chronic anemia MRSA infection MRSA infection of the right hand in October 2013. 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 Amputation of digit of left hand Secondary to osteomyelitis. Status post excision of lipoma History of carpal tunnel release History of section History of hysterectomy History of appendectomy History of exploratory laparotomy History of open reduction and internal fixation (ORIF) procedure (03/2021) Repair of right ankle fracture per Dr. Cristo Lewis at [facility]. <Jeane Durham PA-C - Last Filed: 07/07/24 22:11> Family History Family History: Family History Father Diabetes mellitus Family history of malignant neoplasm Colon cancer Mother Family history of malignant neoplasm <Jeane Durham PA-C - Last Filed: 07/07/24 22:11> Social History Social History: Social History Social History: Surrogate medical decision maker: Kavitha Sterling, daughter. Code status: Full code. Smoking packs per day: 1 Smoking cigarettes per day: 20.0 Years smoked: 30 Smoking pack-years: 30.00 Smoking status: Former smoker Tobacco type: cigarettes Second hand tobacco smoke exposure: Yes Additional smoking assessment comments: Up to 2 PPD at one point (for 50 years, 100 pack years) . Still vapes. Alcohol intake: never Substance use: never Substance use type: does not use Do You Feel Safe in your Home?: Yes Lack of Transportation: No Lack of Food: Never True Current Housing: I Have Housing Concerned About Future Housing: No Difficulty Paying Gas/Electric Bills: No Difficulty Paying for Meds: No Currently Unemployed: No Education: Decline to Answer Difficulty w/ Childcare or Family Care: No Living arrangements: with family Additional living arrangements comments: The patient lives with her daughter Kavitha in [place]. Spiritual care concerns: No <Jeane Durham PA-C - Last Filed: 07/07/24 22:11> Exam 2 Narrative: GENERAL: Elderly, obese with BMI of 33.0, non-toxic, in no acute distress. HEAD: Normocephalic, atraumatic. RESPIRATORY: Airway patent, respirations nonlabored. Coarse lung sounds in bases joaquim CARDIOVASCULAR: Regular rate and rhythm. Peripheral pulses intact. MUSCULOSKELETAL: Moves all extremities. No gross deformities. Small triangular skin tear to R lower lateral leg. No active drainage or bleeding. Mild diffuse swelling/pitting edema throughout ble, slightly worse on R, extending into joaquim dorsal feet. Slight warmth to R lower leg. Previous amputation of joaquim 5th fingers. SKIN: Warm, dry, normal color. NEURO: A&O X3. Answers all questions. Speech clear. Cranial nerves II-XII grossly intact. Strength 5 of 5 in upper and lower extremities bilaterally. Equal aircraft stress analyst strength bilaterally. No pronator drift. Chronic tremor of head and mouth. PSYCHIATRIC: Appropriate mood and affect. Normal interaction. <Jeane Durham PA-C - Last Filed: 07/07/24 22:11> Course PLANT ASSOCIATE/PA Physician Supervision For this patient encounter, I reviewed the PLANT ASSOCIATE or PA documentation, treatment plan, and medical decision making and had [id number] time with this patient. I performed all aspects of the MDM as documented. <Yamileth Bright MD - Last Filed: 07/08/24 03:42> Vital Signs Vital signs: Vital Signs Temperature 98 F 07/07/24 15:56 Pulse Rate 57 L 07/07/24 15:56 Respiratory Rate 16 07/07/24 15:56 Blood Pressure 148/57 H 07/07/24 15:56 Pulse Oximetry 98 07/07/24 15:56 Oxygen Delivery Room Air 07/07/24 15:56 Temperature 98.1 F 07/08/24 00:00 Pulse Rate 101 H 07/08/24 02:32 Respiratory Rate 22 H 07/08/24 00:54 Blood Pressure 121/60 07/08/24 02:32 Pulse Oximetry 92 07/08/24 00:54 Oxygen Delivery Room Air 07/08/24 00:54 <Jeane Durham PA-C - Last Filed: 07/07/24 22:11> Vital Signs Temperature 98 F 07/07/24 15:56 Pulse Rate 57 L 07/07/24 15:56 Respiratory Rate 16 07/07/24 15:56 Blood Pressure 148/57 H 07/07/24 15:56 Pulse Oximetry 98 07/07/24 15:56 Oxygen Delivery Room Air 07/07/24 15:56 Temperature 98.1 F 07/08/24 00:00 Pulse Rate 101 H 07/08/24 02:32 Respiratory Rate 22 H 07/08/24 00:54 Blood Pressure 121/60 07/08/24 02:32 Pulse Oximetry 92 07/08/24 00:54 Oxygen Delivery Room Air 07/08/24 00:54 <Yamileth Bright MD - Last Filed: 07/08/24 03:42> Medical Decision Making MDM Narrative Medical decision making narrative: Patient presented to ED with daughter with concern for increased confusion over the last couple of days. Daughter concerned for possible infection. Patient had a fall last week with small skin tear to R lower lateral leg. Does not appear acutely infected, though right leg is slightly warm compared to left. Vital signs are stable. Patient is afebrile. She is neurologically intact. A&OX3. No focal deficits appreciated. Blood sugars 200. Laboratory studies are fairly unremarkable. No leukocytosis. Chronic mild anemia, consistent with previous records. Electrolytes are stable. Stable kidney function. Blood glucose 171. Magnesium within normal range. Lactic acid within normal range. Procalcitonin normal. UA is without evidence of infection. X-ray of right ankle negative Venous ultrasound of bilateral lower extremities negative for DVT CT brain negative Chest x-ray with possible pneumonia versus atelectasis, also showing pleural opacity DANIEL - recommending CT. Patient with chronic cough related to smoking. Denies recent productive cough or fevers. CT chest with again atelectasis versus pneumonia, left pleural effusion, left pleural nodule. Patient denies any respiratory complaints. Denies shortness of breath. Oxygen has been stable on room air. While in the ED, patient found to be in AFIB with RVR. Rates 140s-150s. Hx of afib, on eliquis, sotalol, diltiazem. BP slightly soft. Pressures ranging from upper 90s systolic to low 100s. Patient given fluids. BP holding stable. Given IV push of Diltazem 10mg. Heart rate did respond to this, decreasing into the low 100s. Cardizem drip started. Blood pressure remaining stable. At this time, unclear etiology of confusion, weakness. Daughter reports that patient has been increasingly forgetful lately, possible that she is developing dementia. Daughter expresses concern that it has been more difficult to take care for her at home. She currently lives with daughter. Daughter expressed interested in having patient placed in a intermediate, hearing about placement options. Patient will be admitted for further management of AFib with RVR, will have care coordination consulted for intermediate placement. Discussed case with Dr. Oreilly, hospitalist, accepted patient for admission to IMU. Patient and family in agreement with plan. <Jeane Durham PA-C - Last Filed: 07/07/24 22:11> Medical Records Medical records reviewed: Yes I reviewed the external patient's medical records. <Jeane Durham PA-C - Last Filed: 07/07/24 22:11> Vital Signs Vital Signs: Vital Signs Temperature 98 F 07/07/24 15:56 Pulse Rate 57 L 07/07/24 15:56 Respiratory Rate 16 07/07/24 15:56 Blood Pressure 148/57 H 07/07/24 15:56 Pulse Oximetry 98 07/07/24 15:56 Oxygen Delivery Room Air 07/07/24 15:56 Temperature 98.1 F 07/08/24 00:00 Pulse Rate 101 H 07/08/24 02:32 Respiratory Rate 22 H 07/08/24 00:54 Blood Pressure 121/60 07/08/24 02:32 Pulse Oximetry 92 07/08/24 00:54 Oxygen Delivery Room Air 07/08/24 00:54 <Jeane Durham PA-C - Last Filed: 07/07/24 22:11> Vital Signs Temperature 98 F 07/07/24 15:56 Pulse Rate 57 L 07/07/24 15:56 Respiratory Rate 16 07/07/24 15:56 Blood Pressure 148/57 H 07/07/24 15:56 Pulse Oximetry 98 07/07/24 15:56 Oxygen Delivery Room Air 07/07/24 15:56 Temperature 98.1 F 07/08/24 00:00 Pulse Rate 101 H 07/08/24 02:32 Respiratory Rate 22 H 07/08/24 00:54 Blood Pressure 121/60 07/08/24 02:32 Pulse Oximetry 92 07/08/24 00:54 Oxygen Delivery Room Air 07/08/24 00:54 <Yamileth Bright MD - Last Filed: 07/08/24 03:42> Lab Data Lab results reviewed: Yes I reviewed the patient's lab results. <Jeane Durham PA-C - Last Filed: 07/07/24 22:11> Result diagrams: 07/07/24 18:01 07/07/24 18:01 <Jeane Durham PA-C - Last Filed: 07/07/24 22:11> Labs: Lab Results 07/07/24 07/07/24 07/07/24 Range/Units 16:09 16:50 18:01 WBC 5.7 (4.5-10.0) K/mm3 RBC 3.36 L (4.2-5.4) M/mm3 Hgb 10.6 L (12.0-15.0) g/dL Hct 33.4 L (37.0-47.0) % MCV 99.4 (80-100) fl MCH 31.5 (26-34) pg MCHC 31.7 L (32-36) g/dl RDW 15.7 H (11.5-14.5) % Plt Count 174 (150-375) k/mm3 MPV 10.5 H (7.4-10.4) fl Immature Gran % (Auto) 0.2 (0-0.5) % Neut % (Auto) 64.6 (45.5-73.1) % Lymph % (Auto) 23.5 (18.3-44.2) % [place] % (Auto) 10.1 H (2.6-8.5) % Eos % (Auto) 1.1 (0-4.4) % Baso % (Auto) 0.5 (0.2-1.2) % Lymph # (Auto) 1.33 (0.9-3.2) K/mm3 [place] # (Auto) 0.6 (0.1-0.6) K/mm3 Eos # (Auto) 0.1 (0-0.3) K/mm3 Baso # (Auto) 0.0 (0.0-0.1) K/mm3 Abs Immat Gran (auto) 0.01 (0.00-0.031) K/mm3 Absolute Neuts (auto) 3.7 (1.3-6.7) K/mm3 Absolute Nucleated RBC 0.000 (0.0-0.012) K/mm3 Nucleated RBC % 0.0 (0.0-0.2) % PT 12.8 (11.1-14.7) Seconds INR 0.9 APTT 20.5 L (22.3-36.8) Seconds Sodium 132 L (137-145) mmol/L Potassium 4.2 (3.4-5.0) mmol/L Chloride 103 (98-107) mmol/L Carbon Dioxide 24 (22-30) mmol/L Anion Gap 5 (4-12) mmol/L BUN 10 D (7-17) mg/dL Creatinine 0.82 (0.7-1.0) mg/dL Estim Creat Clear Calc 53 ml/min Estimated GFR > 60 (59 - ) Glucose 171 H (65-110) mg/dL POC Capillary Glucose 200 H (65-105) mg/dl Lactic Acid 0.7 (0.7-2.0) mmol/L Calcium 9.0 (8.4-10.2) mg/dL Magnesium 2.0 (1.6-2.3) mg/dL Total Bilirubin 0.5 (0.2-1.3) mg/dL AST 23 (14-36) U/L ALT 16 (6-35) U/L Alkaline Phosphatase 92 (38-126) U/L NT-Pro-B Natriuret Pep 2370 H (19.9-100) pg/mL Total Protein 7.0 (6.3-8.2) g/dL Albumin 3.3 L (3.5-5.1) g/dL Procalcitonin 0.1 ng/mL Urine Color Yellow (Yellow) Urine Appearance Clear (Clear) Urine pH 7.5 (5.0-9.0) Ur Specific [place] 1.011 (1.001-1.035) Urine Protein Negative (Negative) mg/dL Urine Glucose (UA) Negative (Negative) mg/dL Urine Ketones Negative (Negative) mg/dL Ur Blood (Man) Negative (Negative) Urine Nitrate Negative (Negative) Urine Bilirubin Negative (Negative) Urine Urobilinogen 0.2 (<2.0) mg/dL Leukocyte Esterase Rfl Negative (Negative) KAL/UL <Jeane Durham PA-C - Last Filed: 07/07/24 22:11> Lab Results 07/07/24 07/07/24 07/07/24 Range/Units 16:09 16:50 18:01 WBC 5.7 (4.5-10.0) K/mm3 RBC 3.36 L (4.2-5.4) M/mm3 Hgb 10.6 L (12.0-15.0) g/dL Hct 33.4 L (37.0-47.0) % MCV 99.4 (80-100) fl MCH 31.5 (26-34) pg MCHC 31.7 L (32-36) g/dl RDW 15.7 H (11.5-14.5) % Plt Count 174 (150-375) k/mm3 MPV 10.5 H (7.4-10.4) fl Immature Gran % (Auto) 0.2 (0-0.5) % Neut % (Auto) 64.6 (45.5-73.1) % Lymph % (Auto) 23.5 (18.3-44.2) % [place] % (Auto) 10.1 H (2.6-8.5) % Eos % (Auto) 1.1 (0-4.4) % Baso % (Auto) 0.5 (0.2-1.2) % Lymph # (Auto) 1.33 (0.9-3.2) K/mm3 [place] # (Auto) 0.6 (0.1-0.6) K/mm3 Eos # (Auto) 0.1 (0-0.3) K/mm3 Baso # (Auto) 0.0 (0.0-0.1) K/mm3 Abs Immat Gran (auto) 0.01 (0.00-0.031) K/mm3 Absolute Neuts (auto) 3.7 (1.3-6.7) K/mm3 Absolute Nucleated RBC 0.000 (0.0-0.012) K/mm3 Nucleated RBC % 0.0 (0.0-0.2) % PT 12.8 (11.1-14.7) Seconds INR 0.9 APTT 20.5 L (22.3-36.8) Seconds Sodium 132 L (137-145) mmol/L Potassium 4.2 (3.4-5.0) mmol/L Chloride 103 (98-107) mmol/L Carbon Dioxide 24 (22-30) mmol/L Anion Gap 5 (4-12) mmol/L BUN 10 D (7-17) mg/dL Creatinine 0.82 (0.7-1.0) mg/dL Estim Creat Clear Calc 53 ml/min Estimated GFR > 60 (59 - ) Glucose 171 H (65-110) mg/dL POC Capillary Glucose 200 H (65-105) mg/dl Lactic Acid 0.7 (0.7-2.0) mmol/L Calcium 9.0 (8.4-10.2) mg/dL Magnesium 2.0 (1.6-2.3) mg/dL Total Bilirubin 0.5 (0.2-1.3) mg/dL AST 23 (14-36) U/L ALT 16 (6-35) U/L Alkaline Phosphatase 92 (38-126) U/L NT-Pro-B Natriuret Pep 2370 H (19.9-100) pg/mL Total Protein 7.0 (6.3-8.2) g/dL Albumin 3.3 L (3.5-5.1) g/dL Procalcitonin 0.1 ng/mL Urine Color Yellow (Yellow) Urine Appearance Clear (Clear) Urine pH 7.5 (5.0-9.0) Ur Specific [place] 1.011 (1.001-1.035) Urine Protein Negative (Negative) mg/dL Urine Glucose (UA) Negative (Negative) mg/dL Urine Ketones Negative (Negative) mg/dL Ur Blood (Man) Negative (Negative) Urine Nitrate Negative (Negative) Urine Bilirubin Negative (Negative) Urine Urobilinogen 0.2 (<2.0) mg/dL Leukocyte Esterase Rfl Negative (Negative) KAL/UL <Yamileth Bright MD - Last Filed: 07/08/24 03:42> Imaging Data Attestation: I personally reviewed and interpreted this imaging study as follows: < Jeane Durham PA-C - Last Filed: 07/07/24 22:11> Radiologist's impression: ITS Impressions Chest X-Ray 07/07/24 17:14 IMPRESSION: Left lower atelectasis versus pneumonia. Left upper lobe pleural-based opacity. CT evaluation is advised. Ankle X-Ray 07/07/24 17:17 IMPRESSION: No acute osseous abnormality of the right ankle. Head CT 07/07/24 17:20 IMPRESSION: No acute intracranial findings. Venous Doppler Study 07/07/24 18:01 IMPRESSION: Negative bilateral lower extremity venous US. No deep vein thrombosis. Chest CT 07/07/24 21:09 IMPRESSION: Patchy opacities in the left upper lobe suggestive of atelectasis versus pneumonia. No pleural base mass seen. Moderate to large pleural effusion. 1.6 cm Pleural base nodule in the left lower lobe with adjacent atelectasis. 3 months follow-up advised. <Jeane Durham PA-C - Last Filed: 07/07/24 22:11> ECG Data EKG #1: Attestation: I personally reviewed and interpreted this ECG as follows: <JORGE Bartlett Last Filed: 07/07/24 22:11> ECG completion date: 07/07/24 <JORGE Bartlett Last Filed: 07/07/24 22:11> ECG completion time: 16:02 <JORGE Bartlett Last Filed: 07/07/24 22:11> EKG Interpretation: bradycardia (58), sinus rhythm, non-specific ST changes and other (baseline artifact and wander) <JORGE Bartlett Last Filed: 07/07/24 22:11> Discharge Plan Discharge Clinical Impression: Atrial fibrillation with rapid ventricular response, Pleural effusion, Incidental lung nodule, Weakness, Acute confusion <JORGE Bartlett Last Filed: 07/07/24 22:11> Patient Disposition: Still a Patient <JORGE Bartltet Last Filed: 07/07/24 22:11> Condition: Stable <JORGE Bartlett Last Filed: 07/07/24 22:11>
--- OUTSIDE RECORDS SUMMARY | 2024-07-07 16:26 | XMS_ITS | Encounter Summary ---
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 Call Back #: [phone] ASSISTANT documented in this encounter Plan of Treatment Upcoming Encounters Date Type Department Care Team (Late st Contact Info) Description 07/24/2024 1:30 PM CDT Appointment [facility] [address] [place] [address] Ernesto Alfaro MD [address] [phone] 07/24/2024 2:20 PM CDT Office Visit [facility] - Hematology/Oncology [address] [place] [phone] Redd Middleton MD [address] [place] [address] 08/02/2024 9:30 AM CDT Office Visit [facility] - General Surgery [address] [place] [phone] Sena Blum MD [address] [facility] [address] [place] [phone] 12/05/2024 10:00 AM CDT Appointment [facility] [address] [place] [address] Kelsey Renner MD [address] [place] [phone] 02/11/2025 8:00 AM PHYS ASSISTANT Appointment [address] [address] documented as of this encounter Visit Diagnoses [...] documented as of this encounter Care Teams Stock Counter Relationship Specialty Start Date End Date Ernesto Alfaro MD [address] [place] [address] PCP - General 01/03/17 documented as of this encounter
--- OUTSIDE RECORDS SUMMARY | 2024-07-07 16:26 | XMS_ITS ---
Author Organization [facility] Care Team Providers Care Treasury Director Name Role Phone Hazel Taylor Unavailable Unavailable Carmicheal, Crystal Unavailable Unavailable Edgard, Odalis Flores) Kiki Unavailable Unavailable Bharati, Jaclyn Unavailable Unavailable [place], Fidel Unavailable Unavailable Allergies and adverse reactions Code CodeSystem Substance Reaction Severity StartDate Concern Status 080781291 SNOMED CT Quinolones Moderate 04/25/2021 activ e 9071 RXNORM quiNINE Moderate 04/25/2021 active 2231 RXNORM Cephalexin Moderate 04/25/2021 active 1191 RXNORM Aspirin Moderate 04/25/2021 active Care Team Name Role Address Phone Organization Dates Hazel Taylor PCP [address] [place], [place], [facility], [place] (Office): : : [facility] 04/25/2021 - 05/14/2021 Nakia Jauregui Attending Physician [address] [place], [facility], [place] (Office): : : [facility] 04/25/2021 - 05/14/2021 Odalis Flores) Kiki Rene Attending Physician [address] [place], [address], [place] (Office): : : [facility] 04/25/2021 - 05/14/2021 Jaclyn Calabrese Attending Physician [address] [place], [address], [place] (Office): : [facility] 04/25/2021 - 05/14/2021 [place] Santiago Attending Physician [address] [place], [address], [facility] (Office): : : [facility] 04/25/2021 - 05/14/2021 Goals Section Description Status [...] ACQUIRED ABSENCE OF LEFT FINGER(S) 04/25/[address] active 2 ACQUIRED ABSENCE OF RIGHT FINGER(S) 04/25/[address] active 3 ACUTE POSTHEMORRHAGIC ANEMIA 04/25/[address] active 4 ANEMIA, UNSPECIFIED 04/25/[address] active 5 CHRONIC OBSTRUCTIVE PULMONARY DISEASE, UNSPECIFIED 04/25/[address] active 6 DEPRESSION, UNSPECIFIED 04/25/[address] active 7 EMPHYSEMA, UNSPECIFIED 04/25/[address] active 8 ESSENTIAL (PRIMARY) HYPERTENSION 04/25/[address] active 9 HISTORY OF FALLING 04/25/[address] active 10 HYPERLIPIDEMIA, UNSPECIFIED 04/25/[address] active 11 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 04/25/[address] active 12 LOW BACK PAIN, UNSPECIFIED 04/25/[address] active 13 OBESITY, UNSPECIFIED 04/25/[address] active 14 OTHER FRACTURE OF UNSPECIFIED LOWER LEG, SUBSEQUENT ENCOUNTER FOR CLOSED FRACTURE WITH ROUTINE HEALING 04/25/[address] active 15 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 04/25/[address] active 16 SYSTEMIC INFLAMMATORY RESPONSE SYNDROME (SIRS) OF NON-INFECTIOUS ORIGIN WITHOUT ACUTE ORGAN DYSFUNCTION 04/25/[address] active 17 TYPE 2 DIABETES MELLITUS WITHOUT COMPLICATIONS 04/25/[address] active 18 UNSPECIFIED ATRIAL FIBRILLATION 04/25/[address] active 19 UNSPECIFIED CHRONIC BRONCHITIS 04/25/[address] active 20 UNSPECIFIED SENSORINEURAL HEARING LOSS 04/25/[address] active Reason for Referral No Reasons for Referral Entered Social History Social History Observation Description Start Date End Date Code Code System Current Smoking Status Tobacco smoking consumption unknown 702465372 SNOMED CT Sex Assigned At Female 1950 55600-4 [facility] Vital Signs Code Code System Vitals Name Values and Units Timing Information 2339-0 [facility] Blood Sugar Lyadm=780.0 Units=mg/dL 05/14/2021 02454-4 [facility] Pain Level Value=0.0 05/14/2021 8310-5 [facility] Body Temperature Value=97.1 Units= F 05/11/2021 32825-9 [facility] O2 % BldC Oximetry Value=97.0 Units= % 05/11/2021 06575-8 [facility] Weight Ovjjh=553.2 Units=Lbs 8302-2 [facility] Height Value=63.0 Units=Inches 04/27/2021 9279-1 [facility] Respiratory Rate Value=20.0 Units=/m in 04/25/2021 8462-4 [facility] Blood Pressure-Diastolic Value=65 Un its=mmHg 04/25/2021 8480-6 [facility] Blood Pressure-Systolic Zevov=203 Un its=mmHg 04/25/2021 8867-4 [facility] Heart rate Value=76.0 Units=/min 07/2021
--- OUTSIDE RECORDS SUMMARY | 2024-07-07 16:26 | XMS_ITS | Clinical Summary ---
Author Organization [employer] KHADIJAH STOVALL [facility] Address [address] [facility] [facility] [address] Care Team Providers Care Smalltalk Developer Name Role Phone Ernesto Alfaro MD Primary Care Provider [phone] Allergies Active Allergy Reactions Criticality Noted Date [...] take with food or milk Active Insulin Randle, Disposable, (Novofine 32) 32 gauge x 1/4 Needle by [facility].(Non-Drug; Combo Route) route. 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
--- OUTSIDE RECORDS SUMMARY | 2024-07-07 16:26 | XMS_ITS | Clinical Summary ---
Author Organization 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 This disclosure is being madepursuant to the Care Everywhere program and may not contain all information available regarding this patient. Last updated 17.[facility] Allergies Active Allergy Reactions Criticality Noted Date [...] diabetes mellitus wit h hyperglycemia, unspecified whether mcc insulin use 12/17/2022 Nausea and vomiting, unspecified vomiting type 0 12/17/2022 Malignant neoplasm of upper- outer quadrant of left breast in female, estrogen receptor negative 11/15/2022 Cancer Staging:Clinical stage from 11/01/2022:Stage IIIB(cT2, cN1(f), cM0, G2, ER-, VA-, HER2-) - Signed by Sena Blum MD on 11/15/2022 Pathologic stage from 07/22/2023: ypT0, pN0(sn), cM0, G3, ER-, VA-, HER2- - Signed by Sena Blum MD [...] fossa. Eventually referred to Dr. Ortez at [facility], underwent multiple I&Ds and Matristem placement. Finally [...] Description 07/03/2024 9:00 AM CDT Office Visit [facility] - Hematology/Oncolog y [facility] [place] [phone] Karli Carpenter, TRAP PULLER-MECHANICAL ENGINEER Malignant neoplasm of upper-outer quadrant of left breast in female, estrogen receptor negative (HCC) (Primary Dx); Nausea and vomiting, unspecified vomiting type; Hyperglycemia; Falls; Fatigue, unspecified type 07/03/2024 8:20 AM CDT - 07/03/2024 11:59 PM CDT Hospital Encounter [facility] [address] [place] [id number] Ernesto Alfaro MD Discharge Disposition: Home or Self Care 07/03/2024 Orders Only [facility] - Hematology/Oncolog y [address] [place] [phone] Redd Middleton MD Open knee wound, right, sequela 07/03/2024 Travel 06/12/2024 Telephone [facility] [address] [place] [address] Candace Wilkes RN General 06/05/2024 11:00 AM CDT Office Visit [facility] - Hematology/Oncolog y [address] [place] [phone] Karli Carpenter, TRAP PULLER-MECHANICAL ENGINEER Malignant neoplasm of upper-outer quadrant of left breast in female, estrogen receptor negative (Primary Dx); Nausea and vomiting, unspecified vomiting type; Fatigue, unspecified type; Neuropathy; Type 2 diabetes mellitus with hyperglycemia, unspecified whether termite exterminator helper insulin use 06/05/2024 10:24 AM CDT - 06/05/2024 11:59 PM CDT Hospital Encounter [facility] [address] [place] [address] Ernesto Alfaro MD Discharge Disposition: Home or Self Care 06/05/2024 Travel 05/29/2024 Telephone [facility] [address] [place] [address] Candace Wilkes RN [facility] 05/29/2024 Orders Only [facility] - Rad/Onc [address] [place] [address] Kelsey Renner MD 05/25/2024 Orders Only [facility] - Hematology/Oncolog y [address] [place] [phone] Redd Middleton MD Malignant neoplasm of upper-outer quadrant of left breast in female, estrogen receptor negative 04/17/2024 9:20 AM SALES RECORD CLERK Office Visit [facility] - Hematology/Oncolog y [address] [place] [phone] Karli Carpenter, TRAP PULLER-MECHANICAL ENGINEER Acute cough (Primary Dx); Viral upper respiratory tract infection; Raynaud's disease without gangrene; Malignant neoplasm of upper-outer quadrant of left breast in female, estrogen receptor negative; Encounter for immunotherapy 04/17/2024 8:20 AM SALES RECORD CLERK - 04/17/2024 11:59 PM SALES RECORD CLERK Hospital Encounter [facility] [address] [place] [phone] Ernesto Alfaro MD Discharge Disposition: Home or Self Care 04/17/2024 Travel 04/10/2024 8:45 AM SALES RECORD CLERK Office Visit [facility] - Orthopedics [address] [place] [phone] Patrick Burgos, Fauzia Abad PA-C Other closed fracture of distal end of right femur, sequela (Primary Dx) 04/10/2024 Travel 04/09/2024 9:00 AM SALES RECORD CLERK Office Visit [facility] - Hematology/Oncolog y [address] [place] [phone] Karli Carpenter, TRAP PULLER-MECHANICAL ENGINEER Malignant neoplasm of upper-outer quadrant of left breast in female, estrogen receptor negative (Primary Dx); Encounter for immunotherapy; Viral upper respiratory tract infection; High risk for chemotherapy-induced infectious complication; Nausea and vomiting, unspecified vomiting type; Diarrhea, unspecified type; Diabetic polyneuropathy associated with diabetes mellitus due to underlying condition 04/09/2024 8:12 AM SALES RECORD CLERK - 04/09/2024 11:59 PM SALES RECORD CLERK Hospital Encounter [facility] [address] [place] [address] Ernesto Alfaro MD Discharge Disposition: Home or [...] Recorded Patient Health Questionnaire-2 Score 0 08/12/2023 [facility] of Occupat ional Health - Occupational Stress [...] place to sleep or slept in a mcfp (including now)? No 11/10/2023 Comments No Sex and Gender Information Value Date Recorded Sex Assigned at Not on file Legal Sex Female 5:54 PM SALES RECORD CLERK Gender Identity Female 09/24/2023 8:56 AM CDT [...] Oxygen Concentration 50% 10/2022 10:00 AM SALES RECORD CLERK Weight 72.7 kg (160 lb 3.2 oz) 07/03/2024 10:14 AM CDT Height 157.5 cm (5' 2.01 ) 02/27/2024 9 :13 AM SALES RECORD CLERK Body Mass Index 29.29 02/27/2024 9:13 AM SALES RECORD CLERK Plan of Treatment Upcoming Encounters Date Type Department Care Team (Late st Contact Info) Description 07/24/2024 1:30 PM CDT Appointment [facility] [address] [place] [phone] Ernesto Alfaro MD [address] [phone] 07/24/2024 2:20 PM CDT Office Visit [facility] - Hematology/Oncology [address] [place] [phone] Redd Middleton MD [address] [place] [address] 08/02/2024 9:30 AM CDT Office Visit [facility] - General Surgery [address] [place] [address] Sena Blum MD [address] [facility] [address] [place] [phone] 12/05/2024 10:00 AM CDT Appointment [facility] [address] [place] [address] Kelsey Renner MD [address] [place] [address] 02/11/2025 8:00 AM SALES RECORD CLERK Appointment [address] [phone] Health Maintenance Due Date Last Done Comments [...] wound care. Medical Devices Implanted Type Area Testing Tech Device Identifier Shelf Expiration Date Model / Serial / Lot Graft Tissue [facility]em [facility] [id number] Implanted:Qty: 1 on 08/31/2017 by Juan Ortez MD at [facility] Left: Arm [employer] 06/19/2019 [id number] / [id number] / [id number] Description:Left AC wound Graft Tissue Cytal [id number] Mesh Brn - [id number] Implanted:Qty: 1 on 08/31/2017 by Juan Ortez MD at [facility] Left: Arm [employer] 06/19/2019 [id number] / [id number] / [id number] Description:Left Ac Graft Tissue Matristem Micromatrix Prcn - [id number] Implanted:Qty: 1 on 12/22/2017 by Juan Ortez MD at [facility] Right: Hand [employer] 03/20/2019 [id number] / [id number] / [id number] Mtrx Tissue 5x5cm Cytal Mesh Brn - [id number] Implanted:Qty: 1 on 12/22/2017 by Juan Ortez MD at [facility] Right: Hand [employer] 10/19/2019 [id number] / [id number] / [id number] Mtrx Tissue 5x5cm Cytal Mesh Brn - [id number] Implanted:Qty: 1 on 05/25/2018 by Juan Ortez MD at [facility] Right: Hand [employer] 12/19/2019 [id number] / [id number] / [id number] Mtrx Tissue 5x5cm Cytal Mesh Brn Implanted:Qty: 1 on 08/02/2018 by Juan Ortez MD at [facility] Right: Hand [employer] 06/18/2020 [id number] / / Mtrx Tissue Micromatrix Prcn Bldr - [id number] Implanted:Qty: 1 on 01/03/2019 by Juan Ortez MD at [facility] Right: Hand [employer] 09/17/2020 [id number] / [id number] / [id number] Mtrx Tissue 5x5cm Cytal Prcn Bldr Brn - [id number] Implanted:Qty: 1 on 01/03/2019 by Juan Ortez MD at [facility] Right: Hand [employer] 06/18/2020 [id number] / [id number] / [id number] Mtrx Tissue 5x5cm Gentrix Prcn Urn Bldr - [id number] Implanted:Qty: 1 on 05/23/2019 by Juan Ortez MD at [facility] Right: Hand [employer] 01/18/2021 [id number] / [id number] / [id number] Mtrx Tissue 5x5cm Cytal Prcn Bldr Brn - [id number] Implanted:Qty: 1 on 05/23/2019 by Juan Ortez MD at [facility] Right: Hand [employer] 11/18/2020 [id number] / [id number] / [id number] Mtrx Tissue Micromatrix Prcn Bldr - [id number] Implanted:Qty: 1 on 05/23/2019 by Juan Ortez MD at [facility] Right: Hand [employer] 01/18/2021 [id number] / [id number] / [id number] Mtrx Tissue Micromatrix Prcn Bldr - [id number] Implanted:Qty: 1 on 09/12/2019 by Juan Ortez MD at [facility] Right: Hand [employer] 11/18/2020 [id number] / [id number] / [id number] Mtrx Tissue 5x5cm Cytal Prcn Bldr Brn - [id number] Implanted:Qty: 1 on 09/12/2019 by Juan Ortez MD at [facility] Right: Hand [employer] 04/20/2021 [id number] / [id number] / [id number] Graft Bone Canc 4-9.5mm 15cc Frzdr [facility] - [id number] Implanted:Qty: 1 on 04/07/2021 by Cristo Lewis MD at [facility] Right: Ankle [employer] 11/16/2024 [id number] / [id number] / Hydromark Breast Biopsy Site Marker Implanted:Qty: 1 on 11/01/2022 by Norma Carrasquillo MD at [facility] Left: Axilla [employer] [id number] 12/03/2024 4009-05-05-T1 / / [id number] Ultracor Twirl Breast Tissue Marker Implanted:Qty: 1 on 11/01/2022 by Norma Carrasquillo MD at [facility] Left: Breast [employer] [id number] 07/16/2025 [id number] / / Port Implinfn Powerport Clrvu Argd Shanae Implanted:Qty: 1 on 11/24/2022 at [facility] Right: Chest [employer] 12/19/2023 [id number] / / [id number] Description:RIJ inserted by Dr. Lanza [facility] Orth Ss 3.5-4 Mm Penny Screw Nonster Implanted:Qty: 1 on 01/05/2023 by Patrick Burgos DO at [facility] Right: Knee [employer] [id number] / / Screw 4mm 5mm 80mm .5 Thrd Rvrs Cut Flut Implanted:Qty: 1 on 01/05/2023 by Patrick Burgos DO at [facility] Right: Knee [employer] [id number] / / Screw 3.5mm 5mm 75mm Ft Rvrs Cut Flut Implanted:Qty: 1 on 01/05/2023 by Patrick Burgos DO at [facility] Right: Knee [employer] [id number] / / Nail Im 13mm 34cm Ntr Nail Fem Rtrgd Ant Implanted:Qty: 1 on 01/05/2023 by Patrick Burgos DO at [facility] Right: Knee [employer] [id number] / / Pin Fx 355cm 3mm Fem Nonthread Rtrgd Ntr Implanted:Qty: 1 on 01/05/2023 by Patrick Burgos DO at [facility] Right: Knee [employer] [id number] / / Screw 6mm 3.5mm 85mm Ft Slf-Tap Fx Ang Implanted:Qty: 1 on 01/05/2023 by Patrick Burgos DO at [facility] Right: Knee [employer] [id number] / / Screw 6mm 3.5mm 85mm Ft Slf-Tap Fx Ang Implanted:Qty: 1 on 01/05/2023 by Patrick Burgos DO at [facility] Right: Knee [employer] [id number] / / Screw 6mm 3.5mm 75mm Ft Slf-Tap Fx Ang Implanted:Qty: 1 on 01/05/2023 by Patrick Burgos DO at [facility] Right: Knee [employer] [id number] / / Screw 5mm 3.5mm 40mm Ft Slf-Tap Fx Ang Implanted:Qty: 2 on 01/05/2023 by Patrick Burgos DO at [facility] Right: Knee [employer] [id number] / / Screw 4.5mm 34mm Ft Stef Nonster Bone Implanted:Qty: 2 on 01/05/2023 by Patrick Burgos DO at [facility] Right: Knee [employer] [id number] / / Explanted Type Area Testing Tech Device Identifier Shelf Expiration Date Model / Serial / Lot 2.7 Locking Explanted:Qty: 1 on 04/07/2021 by Cristo Lewis MD at [facility] Right: Ankle [employer] [id number] / / Screw 3.5mm 12mm Slf-Tap Cortx Evos Strl Explanted:Qty: 1 on 04/07/2021 by Cristo Lewis MD at [facility] Right: Ankle [employer] [id number] / / 3.5 Cortical Explanted:Qty: 1 on 04/07/2021 by Cristo Lewis MD at [facility] Right: Ankle [employer] [id number] / / Screw 3.5mm 14mm Slf-Tap Lck Evos Strl Explanted:Qty: 1 on 04/07/2021 by Cristo Lewis MD at [facility] Right: Ankle [employer] [id number] / / 6 Hole Clamp Implanted:Qty: 1 on 03/25/2021 by Cristo Lewis MD at [facility] Explanted:Qty: 1 on 12/09/2021 by Cristo Lewis MD at [facility] Right: Ankle [employer] [id number] / / Clamp Extfix Jtx 10.5-4mm Mini Mr Sf Bar Implanted:Qty: 1 on 03/25/2021 by Cristo Lewis MD at [facility] Explanted:Qty: 1 on 12/09/2021 by Cristo Lewis MD at [facility] Right: Ankle [employer] [id number] / / 5x35 Pin Implanted:Qty: 2 on 03/25/2021 by Cristo Lewis MD at [facility] Explanted:Qty: 2 on 12/09/2021 by Cristo Lewis MD at [facility] Right: Ankle [id number] / / Pin Trc 50mm 5mm Jtx Lng Ti Ntrd Strl Implanted:Qty: 1 on 03/25/2021 by Cristo Lewis MD at [facility] Explanted:Qty: 1 on 12/09/2021 by Cristo Lewis MD at [facility] Right: Ankle [employer] [id number] / / 4x35 Pin Implanted:Qty: 1 on 03/25/2021 by Cristo Lewis MD at [facility] Explanted:Qty: 1 on 12/09/2021 by Cristo Lewis MD at [facility] Right: Ankle [id number] / / Bar Pin Implanted:Qty: 3 on 03/25/2021 by Cristo Lewis MD at [facility] Explanted:Qty: 3 on 12/09/2021 by Cristo Lewis MD at [facility] Right: Ankle [employer] [id number] / / Post Extfix Jtx 30d Nonster Implanted:Qty: 2 on 03/25/2021 by Cristo Lewis MD at [facility] Explanted:Qty: 2 on 12/09/2021 by Cristo Lewis MD at [facility] Right: Ankle [employer] [id number] / / 300 Bar Implanted:Qty: 2 on 03/25/2021 by Cristo Lewis MD at [facility] Explanted:Qty: 2 on 12/09/2021 by Cristo Lewis MD at [facility] Right: Ankle [employer] [id number] / / Clamp Extfix Jtx 10.5mm Bar To Bar Mr Sf Implanted:Qty: 2 on 03/25/2021 by Cristo Lewis MD at [facility] Explanted:Qty: 2 on 12/09/2021 by Cristo Lewis MD at [facility] Right: Ankle [employer] [id number] / / T Plate 27 Implanted:Qty: 1 on 04/07/2021 by Cristo Lewis MD at [facility] Explanted:Qty: 1 on 12/09/2021 by Cristo Lewis MD at [facility] Right: Ankle [employer] [id number] / / 2.7 Cortical Implanted:Qty: 1 on 04/07/2021 by Cristo Lewis MD at [facility] Explanted:Qty: 1 on 12/09/2021 by Cristo Lewis MD at [facility] Right: Ankle [employer] [id number] / / 2.7 Cortical Implanted:Qty: 1 on 04/07/2021 by Cristo Lewis MD at [facility] Explanted:Qty: 1 on 12/09/2021 by Cristo Lewis MD at [facility] Right: Ankle [employer] [id number] / / Screw 2.7mm 4.5mm 32mm T8 2mm Slf-Tap Implanted:Qty: 1 on 04/07/2021 by Cristo Lewis MD at [facility] Explanted:Qty: 1 on 12/09/2021 by Cristo Lewis MD at [facility] Right: Ankle [employer] [id number] / / 2.7 Locking Implanted:Qty: 2 on 04/07/2021 by Cristo Lewis MD at [facility] Explanted:Qty: 2 on 12/09/2021 by Cristo Lewis MD at [facility] Right: Ankle [employer] [id number] / / 2.7 Locking Implanted:Qty: 1 on 04/07/2021 by Cristo Lewis MD at [facility] Explanted:Qty: 1 on 12/09/2021 by Cristo Lewis MD at [facility] Right: Ankle [employer] [id number] / / Screw 3.5mm 12mm Slf-Tap Cortx Evos Strl Implanted:Qty: 1 on 04/07/2021 by Cristo Lewis MD at [facility] Explanted:Qty: 1 on 12/09/2021 by Cristo Lewis MD at [facility] Right: Ankle [employer] [id number] / / 3.5 9 Hole Implanted:Qty: 1 on 04/07/2021 by Cristo Lewis MD at [facility] Explanted:Qty: 1 on 12/09/2021 by Cristo Lewis MD at [facility] Right: Ankle [employer] [id number] / / 3.5 Locking Implanted:Qty: 1 on 04/07/2021 by Cristo Lewis MD at [facility] Explanted:Qty: 1 on 12/09/2021 by Cristo Lewis MD at [facility] Right: Ankle [employer] [id number] / / Screw 3.5mm 14mm Slf-Tap Lck Evos Strl Implanted:Qty: 2 on 04/07/2021 by Cristo Lewis MD at [facility] Explanted:Qty: 2 on 12/09/2021 by Cristo Lewis MD at [facility] Right: Ankle [employer] [id number] / / 3.5 Locking Implanted:Qty: 1 on 04/07/2021 by Cristo Lewis MD at [facility] Explanted:Qty: 1 on 12/09/2021 by Cristo Lewis MD at [facility] Right: Ankle [employer] [id number] / / 3.5 Locking Implanted:Qty: 1 on 04/07/2021 by Cristo Lewis MD at [facility] Explanted:Qty: 1 on 12/09/2021 by Cristo Lewis MD at [facility] Right: Ankle [employer] [id number] / / 3.5 Cortical Implanted:Qty: 1 on 04/07/2021 by Cristo Lewis MD at [facility] Explanted:Qty: 1 on 12/09/2021 by Cristo Lewis MD at [facility] Right: Ankle [employer] [id number] / / 3.5 Cortical Implanted:Qty: 1 on 04/07/2021 by Cristo Lewis MD at [facility] Explanted:Qty: 1 on 12/09/2021 by Cristo Lewis MD at [facility] Right: Ankle [employer] [id number] / / 1/3 Tubular Plate Implanted:Qty: 1 on 04/07/2021 by Cristo Lewis MD at [facility] Explanted:Qty: 1 on 12/09/2021 by Cristo Lewis MD at [facility] Right: Ankle [employer] [id number] / / 3.5 Cortical Implanted:Qty: 1 on 04/07/2021 by Cristo Lewis MD at [facility] Explanted:Qty: 1 on 12/09/2021 by Cristo Lewis MD at [facility] Right: Ankle [employer] [id number] / / Screw 4mm 40mm P/T Penny Hip Ss Strl Bone Implanted:Qty: 1 on 04/07/2021 by Cristo Lewis MD at [facility] Explanted:Qty: 1 on 12/09/2021 by Cristo Lewis MD at [facility] Right: Ankle [employer] [id number] / / 3.5 Cortical Implanted:Qty: 1 on 04/07/2021 by Cristo Lewis MD at [facility] Explanted:Qty: 1 on 12/09/2021 by Cristo Lewis MD at [facility] Right: Ankle [employer] [id number] / / 3.5 Locking Implanted:Qty: 2 on 04/07/2021 by Cristo Lewis MD at [facility] Explanted:Qty: 2 on 12/09/2021 by Cristo Lewis MD at [facility] Right: Ankle [employer] [id number] / / 2.7 Cortical Implanted:Qty: 1 on 04/07/2021 by Cristo Lewis MD at [facility] Explanted:Qty: 1 on 12/09/2021 by Cristo Lewis MD at [facility] Right: Ankle [employer] [id number] / / Wire K 1.6mm 150mm 1 End Troc Pnt Ss Sm Explanted:Qty: 1 on 01/05/2023 at [facility] Right: Knee [employer] [id number] / / Screw 4mm 5mm 85mm .5 Thrd Rvrs Cut Flut Explanted:Qty: 1 on 01/05/2023 by Patrick Burgos DO at [facility] Right: Knee [employer] [id number] / / 2.0 K-Wire Explanted:Qty: 1 on 01/05/2023 by Patrick Burgos DO at [facility] Right: Knee [id number] / / Screw 6mm 3.5mm 80mm Ft Slf-Tap Fx Ang Explanted:Qty: 1 on 01/05/2023 by Patrick Burgos DO at [facility] Right: Knee [employer] [id number] / / Wshr Orth Ss 3.5-4 Mm Penny Screw Nonster Explanted:Qty: 1 on 01/05/2023 by Patrick Burgos DO at [facility] Right: Knee [employer] [id number] / / Screw 5mm 3.5mm 45mm Ft Fx Ang Hex Head Explanted:Qty: 1 on 01/05/2023 by Patrick Burgos DO at [facility] Right: Knee [employer] [id number] / / Procedures Procedure Name Priority Date/Time [...] CITRATED BLOOD STAT 04/17/2024 11:10 AM SALES RECORD CLERK [facility] [place] 04/17/2024 8:43 AM SALES RECORD CLERK Malignant neoplasm of upper-outer quadrant of left breast in female, estrogen receptor negative COMPREHENSIVE METABOLIC PANEL STAT 04/17/2024 8:43 AM SALES RECORD CLERK Malignant neoplasm of upper-outer quadrant of left breast in female, estrogen receptor negative CBC W AUTO DIFFERENTIAL STAT 04/17/2024 8:43 AM SALES RECORD CLERK Malignant neoplasm of upper-outer quadrant of left breast in female, estrogen receptor negative TSH [place] 04/09/2024 8:42 AM SALES RECORD CLERK Malignant neoplasm of upper-outer quadrant of left breast in female, estrogen receptor negative COMPREHENSIVE METABOLIC PANEL STAT 04/09/2024 8:42 AM SALES RECORD CLERK Malignant neoplasm of upper-outer quadrant of left breast in female, estrogen receptor negative CBC W AUTO DIFFERENTIAL STAT 04/09/2024 8:42 AM SALES RECORD CLERK Malignant neoplasm of upper-outer quadrant of left breast in female, estrogen receptor negative MAMMO BILAT DIAGNOSTIC W CHARLES Routine 02/07/2024 9:00 AM SALES RECORD CLERK Malignant neoplasm of upper-outer quadrant of left [...] 4.0 - 10.7 x10E9/L 07/03/2024 10:[address] [facility] RBC Count 3.31(L) 3.90 - 5.20 x10E12/L 07/03/2024 10:20 AM [facility] Hemoglobin 10.5(L) 11.9 - 15.8 g/dL 07/03/2024 10:20 AM [facility] Hematocrit 32.5(L) 34.8 - 46.1 % 07/03/2024 10:20 AM [facility] MCV 98.2(H) 80.0 - 98.0 fL 07/03/2024 10:20 AM [facility] MCH 31.7 26.7 - 33.6 pg 07/03/2024 10:20 AM [facility] MCHC 32.3 31.7 - 36.3 g/dL 07/03/2024 10:20 AM [facility] RDW-CV 15.6(H) 11.3 - 14.8 % 07/03/2024 10:20 AM [facility] Platelet Count 173 150 - 420 x10E9/L 07/03/2024 10:20 AM [facility] MPV 11.1 7.8 - 11.4 fL 07/03/2024 10:20 AM [facility] Preliminary Absolute Neutrophil 4.16 1.60 - 7.50 x10E9/L 07/03/2024 10:20 AM [facility] Neutrophil % 74.7(H) 41.0 - 74.0 % 07/03/2024 10:20 AM [facility] Lymphocyte % 14.5(L) 17.0 - 47.0 % 07/03/2024 10:20 AM [facility] Monocyte % 8.6 3.0 - 11.0 % 07/03/2024 10:20 AM [facility] Eosinophil % 1.6 0.0 - 7.0 % 07/03/2024 10:20 AM [facility] Basophil % 0.4 0.0 - 1.6 % 07/03/2024 10:20 AM [facility] Immature Granulocytes % 0.2 0.0 - 1.0 % 07/03/2024 10:20 AM [facility] Neutrophil Absolute 4.16 1.60 - 7.50 x10E9/L 07/03/2024 10:20 AM [facility] Lymphocyte Absolute 0.81(L) 1.00 - 4.40 x10E9/L 07/03/2024 10:20 AM [facility] Monocyte Absolute 0.48 0.15 - 1.00 x10E9/L 07/03/2024 10:20 AM [facility] Eosinophil Absolute 0.09 0.00 - 0.60 x10E9/L 07/03/2024 10:20 AM [facility] Basophil Absolute 0.02 0.00 - 0.13 x10E9/L 07/03/2024 10:20 AM [facility] Blood BLOOD SPECIMEN / Unknown Venipuncture / Unknown 07/03/2024 10:06 AM CDT 07/03/2024 10:15 AM CDT us Redd Middleton MD LAB - HEMATOLOGY ORDERABLES Fi nal Result [address] [address], [facility] [phone] * (ABNORMAL) COMPREHENSIVE METABOLIC PANEL (07/03/2024 10:06 AM CDT) Only the most recent of4 resultswithin the time period is included. BUN 11 7 - 26 mg/dL 07/03/2024 10:54 AM [facility] Creatinine 0.83 0.56 - 0.96 mg/dL 07/03/2024 10:54 AM [facility] Sodium 134(L) 136 - 145 mmol/L 07/03/2024 10:54 AM [facility] Potassium 5.5(H) 3.5 - 4.5 mmol/L 07/03/2024 10:54 AM [facility] Chloride 105 98 - 107 mmol/L 07/03/2024 10:54 AM [facility] CO2 20(L) 22 - 29 mmol/L 07/03/2024 10:54 AM [facility] Glucose 250(H) 70 - 99 mg/dL 07/03/2024 10:54 AM [facility] Calcium 8.5 8.4 - 10.2 mg/dL 07/03/2024 10:54 AM [facility] Protein Total 6.5 6.0 - 8.3 g/dL 07/03/2024 10:54 AM [facility] Albumin 2.7(L) 3.4 - 5.0 g/dL 07/03/2024 10:54 AM [facility] Bilirubin Total 0.3 0.2 - 1.2 mg/dL 07/03/2024 10:54 AM [facility] Alkaline Phosphatase 78 40 - 150 U/L 07/03/2024 10:54 AM [facility] ALT 12 5 - 55 U/L 07/03/2024 10:54 AM [facility] AST 18 5 - 34 U/L 07/03/2024 10:54 AM [facility] Anion Gap 9 6 - 16 07/03/2024 10:54 AM [facility] BUN/Creatinine Ratio 13 7 - 23 07/03/2024 10:54 AM [facility] Osmolality Calculated 286 275 - 295 mOsm/kg 07/03/2024 10:54 AM [facility] Albumin/Globulin Ratio 0.7(L) 1.1 - 2.3 07/03/2024 10:54 AM [facility] eGFR by CKD-EPI 74(L) >=90 mL/min/1.7 3 m2 07/03/2024 10:54 AM CDT [facility] Blood BLOOD SPECIMEN / Unknown Venipuncture / Unknown 07/03/2024 10:06 AM CDT 07/03/2024 10:13 AM CDT Redd Middleton MD LAB - CHEMISTRY ORDERABLES Fin al Result [facility] [address] [place] [address], [place] [phone] * TSH (07/03/2024 10:06 AM CDT) Only the most recent of4 resultswithin the time period is included. TSH 2.234 0.350 - 4.940 uIU/mL 07/03/2024 11:06 AM CDT [facility] Blood BLOOD SPECIMEN / Unknown Venipuncture / Unknown 07/03/2024 10:06 AM CDT 07/03/2024 10:13 AM CDT Redd Middleton MD LAB - CHEMISTRY ORDERABLES Fin al Result Performing Organization Address City/[facility]/ZIP Co de Phone Number [facility] [address] [place] [address], [place] [phone] * (ABNORMAL) HEMOGLOBIN A1C (06/05/2024 10:46 AM CDT) Hemoglobin A1c 10.9(H) <=5.6 % 06/05/2024 1:50 PM CDT [facility] Estimated Average Glucose 266 mg/dL 06/05/2024 1:50 PM CDT [facility] Comment: HbA1c Interpretation: Normal : < 5.7% Pre-diabetes: 5.7-6.4% Diabetes: Equal to or greater than 6.5% Test results diagnostic of diabetes should be repeated for confirmation. Treatment target values recommended by ADA and other clinical organizations should be used to evaluate metabolic control in patients. Reference: [place] Diabetes Association, Standards of Care in Diabetes -2020 In patients 70 years and older consider HbA1c target range of 7.0-7.5% (Reference: Silvio Elliott et al. JAMDA. 2012) The Sebia assay for the measurement of HbA1c is a National Glycohemoglobin Standardization Program (NGSP) certified method. Blood BLOOD SPECIMEN / Unknown Venipuncture / Unknown 06/05/2024 10:46 AM CDT 06/05/2024 10:58 AM CDT Karli Carpenter TRAP PULLER-MECHANICAL ENGINEER LAB - CHEMISTRY ORDERA BLES Final Result Performing Organization Address City/[facility]/ZIP Co de Phone Number [address] [address], [place] [phone] * PLATELET COUNT AUTO CITRATED BLOOD (04/17/2024 11:10 AM SALES RECORD CLERK) Platelet Count Citrated 04/17/2024 12:44 PM SALES RECORD CLERK [facility] Comment:Unable to report Blood BLOOD SPECIMEN / Unknown Venipuncture / Unknown 04/17/2024 11:10 AM SALES RECORD CLERK 04/17/2024 11:18 AM SALES RECORD CLERK Redd Middleton MD LAB - HEMATOLOGY ORDERABLES Fi nal Result Performing Organization Address [facility] Co de Phone Number [address] [address], [place] [phone] * Mammo Bilat Diagnostic W Charles (02/07/2024 9:00 AM SALES RECORD CLERK) Anatomical Region Laterality Modality Breast Bilateral Mammography 02/07/2024 8:25 AM SALES RECORD CLERK Impressions 02/07/2024 10:42 AM SALES RECORD CLERK IMPRESSION: No mammographic evidence of malignancy in [...] 10:42 AM Narrative 02/07/2024 10:42 AM SALES RECORD CLERK EXAMINATIONS: BILATERAL DIGITAL DIAGNOSTIC MAMMOGRAM AND BREAST TOMOSYNTHESIS LOCATION: [facility] EXAM DATE: 02/07/2024 HISTORY: Prior history [...] LAB - CHEMISTRY ORDERABLES Fi nal Result [facility] [address] [place] [address], [facility] [phone] from Last 3 Months or Most Recently Relevant to Health Maintenance Additional Health Concerns Infection Onset Date Last Indicated MRSA Hx 06/07/2023 06/07/2023 Insurance MEDICAID - [place] HMO & PPO Advance Directives [...] 3:22 PM 01/12/2023 7:07 PM Care Teams Restaurant Kitchen And Service Manager Relationship Specialty Start Date End Date Ernesto Alfaro MD [address] [place] [address] PCP - General 01/03/17
--- OUTSIDE RECORDS SUMMARY | 2024-07-07 16:26 | XMS_ITS ---
Author Organization [facility] Address [address] [place] [address] Care Team Providers Care Commercial Solar Sales Consultant Name Role Phone Ernesto Alfaro MD Primary [...] diabetes mellitus wit h hyperglycemia, unspecified whether care home insulin use 12/17/2022 Nausea and vomiting, unspecified vomiting type 0 12/17/2022 Malignant neoplasm of upper- outer quadrant of left breast in female, estrogen receptor negative 11/15/2022 Cancer Staging:Clinical stage from 11/01/2022:Stage IIIB(cT2, cN1(f), cM0, G2, ER-, MI-, HER2-) - Signed by Sena Blum MD on 11/15/2022 Pathologic stage from 07/22/2023: ypT0, pN0(sn), cM0, G3, ER-, MI-, HER2- - Signed by Sena Blum MD [...] In 12/2016, had 2 lipomas removed from [facility], developed infection of the one over the antecubital fossa. Eventually referred to Dr. Ortez at [facility], underwent multiple I&Ds and Matristem [...]
--- OUTSIDE RECORDS SUMMARY | 2024-07-07 16:26 | XMS_ITS | CONTINUITY OF CARE DOCUMENT ---
Author Name abhaylesleycody Address Unknown Organization [facility] Address [address] [place] [address] Phone [phone] Care Team Providers Care Analytics Leader Name Role Phone Chandan SANABRIA, Shanda Unavailable RAYMOND VILLEGAS MD Unavailable RAYMOND VILLEGAS MD Unavailable [phone] INSURANCE PROVIDERS Payer name Policy type / Coverage type [place] red [place] [employer] Medicare [id number] HEALTHCARE AND FAMILY SERVICES Medicaid 1 [id number]
[2024-07-07 16:56] LABS: Add Urine Microscopic? NO; Appearance Urine Clear (Clear); Bilirubin Urine Negative (Negative); Blood Urine Negative (Negative); Color Urine Yellow (Yellow); Glucose Urine UA Negative (Negative); Ketones Urine Negative (Negative); Leukocyte Esterase Ur Negative LEU/UL (Negative); Nitrate Urine Negative (Negative); Protein Urine Negative (Negative); Specific Grav Ur 1.011 (1.001-1.035); Urobilinogen Urine 0.2 mg/dL (<2.0); pH Urine 7.5 (5.0-9.0)
--- NOTE | 2024-07-07 18:05 | PC.NURSE ---
This RN attempted bloow draw 2 times, 2 other RNs attempted blood draw 2 times each as well. PATTI Ghotra at bedside and was able to get arterial blood draw for labs.
[2024-07-07 18:09] LABS: Basophils Percent Auto 0.5 % (0.2-1.2); Eosinophils Absolute Auto 0.1 K/mm3 (0-0.3); Eosinophils Percent Auto 1.1 % (0-4.4); Hematocrit 33.4 % (37.0-47.0); Hemoglobin 10.6 g/dL (12.0-15.0); Immature Granulocyte Absolute 0.01 K/mm3 (0.00-0.031); Immature Granulocyte Percent A 0.2 % (0-0.5); Lymphocytes Absolute Auto 1.33 K/mm3 (0.9-3.2); Lymphocytes Percent Auto 23.5 % (18.3-44.2); Mean Corpuscular HGB Conc 31.7 g/dl (32-36); Mean Corpuscular Hemoglobin 31.5 pg (26-34); Mean Corpuscular Volume 99.4 fl (80-100); Mean Platelet Volume 10.5 fl (7.4-10.4); Monocytes Absolute Auto 0.6 K/mm3 (0.1-0.6); Monocytes Percent Auto 10.1 % (2.6-8.5); Neutrophils Absolute Auto 3.7 K/mm3 (1.3-6.7); Neutrophils Percent Auto 64.6 % (45.5-73.1); Platelet Count Result 174 k/mm3 (150-375); Red Blood Count 3.36 M/mm3 (4.2-5.4); Red Cell Distribution Width 15.7 % (11.5-14.5); White Blood Count 5.7 K/mm3 (4.5-10.0)
--- NOTE | 2024-07-07 18:09 | ECG_ITS ---
Test Date: 2024-07-07 18:14:59 Measurements Intervals [place] Rate: 149 P: 0 WI: 0 QRS: 26 QRSD: 77 T: 42 QT: 280 QTc: 441 Interpretive Statements ATRIAL FIBRILLATION WITH RAPID VENTRICULAR RESPONSE LOW QRS VOLTAGE IN LIMB LEADS BORDERLINE ST-T WAVE ABNORMALITY- LAT/HIGH LAT LEADS BASELINE ARTIFACT- I, II, AVR ABNORMAL ECG Compared to ECG 07/07/2024 16:02:58 ATRIAL FIBRILLATION NOW PRESENT Electronically Signed On 07-08-2024 08:37:40 CDT by Mejia Fulton D.O.
[2024-07-07 18:19] LABS: Alanine Aminotransferase 16 U/L (6-35); Albumin Level 3.3 g/dL (3.5-5.1); Alkaline Phosphatase 92 U/L (38-126); Anion Gap 5 mmol/L (4-12); Aspartate Amino Transferase 23 U/L (14-36); Bilirubin,Total 0.5 mg/dL (0.2-1.3); Blood Urea Nitrogen 10 mg/dL (7-17); Carbon Dioxide 24 mmol/L (22-30); Chloride 103 mmol/L (98-107); Estimated CRCL calculation 53 ml/min; Estimated Glomerular Filt Rate > 60; Glucose 171 mg/dL (65-110); Lactic Acid Reflex 0.7 mmol/L (0.7-2.0); Potassium 4.2 mmol/L (3.4-5.0); Sodium 132 mmol/L (137-145)
[2024-07-07 18:20] LABS: INR 0.9; Partial Thromboplastin Time 20.5 Seconds (22.3-36.8); Prothrombin Time 12.8 Seconds (11.1-14.7)
[2024-07-07] MEDS: SODIUM CHLORIDE 0.9% IV 1,000 ML 999 ML IV CONT ×2 (18:27→19:52)
[2024-07-07 18:36] LABS: Procalcitonin 0.1 ng/mL
[2024-07-07] MEDS: dilTIAZem HCl INJ 25 MG/5 ML VIAL 10 MG IV PUSH (19:52)
[2024-07-07] MEDS: CALCIUM GLUCONATE 1,000 MG/10 ML VIAL 1000 MG IV PUSH (19:52)
[2024-07-07] MEDS: dilTIAZem 100 MG/100 ML 100 MG/100 ML BAG IV CONT (20:11)
[2024-07-07 22:17] LABS: NT Pro B Type Natriuretic Pept 2370 pg/mL (19.9-100)
--- NOTE | 2024-07-07 22:23 | PM.IMHP ---
H&P: HPI History of Present Illness Date/Time: 07/07/24 22:23 Chief Complaint: Confusion Narrative: Ms. Cardenas is a 74-year-old female presenting with confusion for a few days. She carries a medical history of active tobacco abuse, COPD, history of acute hypoxic respiratory failure and pneumonia, paroxysmal atrial fibrillation on sotalol and Eliquis, pulmonary congestion/pulmonary hypertension, insulin-dependent diabetes mellitus, chronic anemia thrombocytopenia and hyponatremia. The patient is brought in by her daughter whom she lives with. Patient does not have a history of dementia but the daughter thinks it has been progressing over sometime. Last week the patient reported to the daughter she fell on her buttocks. Daughter has noticed worsening cognition over the past few days, she was using her bedside commode as a walker. The daughter does not think the patient has taken her meds. Daughter does not think she can take care of her anymore, requests to placement. In the ER patient presented in sinus rhythm but during the course entered AFib with RVR. She received 2 L normal saline along with diltiazem 10 mg IV push x1. Eventually placed on diltiazem GTT 5 milligrams/hour. She was transiently hypotensive as well. Laboratory workup revealed hemoglobin 10.6 which is around her baseline, sodium 132, serum creatinine 0.82 which is lower than her last admission when she had an OK. BNP 2370. Urinalysis unremarkable. Patient had no complaints aside from left ankle pain. She has a previous fracture and surgical repair. Ankle x-ray did not demonstrate acute osseous abnormalities but soft tissue swelling bilaterally and severe osteoarthritic changes. Head CT with no acute process. Venous Dopplers without acute process. CT chest with contrast demonstrating patchy opacities in left upper lobe suggestive of atelectasis versus pneumonia. Moderate to large left pleural effusion. 1.6 cm pleural base nodule in the left lower lobe with adjacent atelectasis. Review of Systems Review of Systems: All systems reviewed & are unremarkable except as noted in HPI and below (HPI) [facility] Past Medical History Medical History Paroxysmal atrial fibrillation Chronic anemia MRSA infection MRSA infection of the right hand in October 2013. 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 Amputation of digit of left hand Secondary to osteomyelitis. Status post excision of lipoma History of carpal tunnel release History of section History of hysterectomy History of appendectomy History of exploratory laparotomy History of open reduction and internal fixation (ORIF) procedure (03/2021) Repair of right ankle fracture per Dr. Cristo Lewis at [facility]. Family History Family History Father Diabetes mellitus Family history of malignant neoplasm Colon cancer Mother Family history of malignant neoplasm Social History Social History Social History: Surrogate medical decision maker: Kavitha Sterling, daughter. Code status: Full code. Smoking packs per day: 1 Smoking cigarettes per day: 20.0 Years smoked: 30 Smoking pack-years: 30.00 Smoking status: Former smoker Tobacco type: cigarettes Second hand tobacco smoke exposure: Yes Smoking end date: 03/21/19 Additional smoking assessment comments: Up to 2 PPD at one point (for 50 years, 100 pack years) . Still vapes. Alcohol intake: never Substance use: never Substance use type: does not use Do You Feel Safe in your Home?: Yes Lack of Transportation: YES Lack of Food: Never True Current Housing: I Have Housing Concerned About Future Housing: No Difficulty Paying Gas/Electric Bills: No Difficulty Paying for Meds: No Currently Unemployed: No Education: High School Diploma/GED Difficulty w/ Childcare or Family Care: No Living arrangements: with family Additional living arrangements comments: The patient lives with her daughter Kavitha in [place]. Spiritual care concerns: No Meds Home Medications and Allergies Home Medications ?Medication ?Instructions ?Recorded ?Confirmed ?Type albuterol sulfate 90 mcg/actuation 2 inh inhalation PRN PRN SOB 07/14/20 05/01/24 History aerosol inhaler gabapentin 300 mg capsule 300 mg PO TID 07/14/20 05/01/24 History diltiazem HCl 120 mg 120 mg PO DAILY 12/07/21 05/01/24 History capsule,extended release 24 hr, controlled (DILT-XR) insulin aspart U-100 100 unit/mL 1 sliding scale dose subcut 05/01/24 05/01/24 History (3 mL) subcutaneous pen TIDWMEAL mometasone 0.1 % topical cream 1 applic topical DAILY PRN itching 05/01/24 05/02/24 History nitrofurantoin 100 mg PO TID 05/01/24 05/01/24 History monohydrate/macrocrystals 100 mg capsule oxycodone 10 mg tablet 10 mg PO Q4H 05/01/24 05/01/24 History apixaban 5 mg tablet (Eliquis) 5 mg PO Q12HR #60 tabs 05/09/24 Rx cefuroxime axetil 250 mg tablet 500 mg (2 x 250 mg) PO Q12HR #14 05/09/24 Rx tabs guaifenesin 600 mg tablet, 1,200 mg (2 x 600 mg) PO Q12HR #30 05/09/24 Rx extended release 12 hr (Mucus tabs Relief ER) insulin glargine 100 unit/mL (3 25 unit (0.25 mL) subcut ACHS #15 05/09/24 05/01/24 Rx mL) subcutaneous pen (Lantus mL Solostar U-100 Insulin) polyethylene glycol 3350 17 gram 17 g PO QAM #30 ea 05/09/24 Rx oral powder packet (Miralax) sotalol 80 mg tablet 80 mg PO Q12HR #60 tabs 05/09/24 Rx Allergies Allergy/AdvReac Type Severity Reaction Status Date / Time eucalyptus Allergy Intermediate BLISTERS Verified 12/02/23 15:53 quinine Allergy Intermediate HIVES Verified 12/02/23 15:53 cephalexin Allergy Unknown Itching Verified 05/07/24 12:26 levofloxacin Allergy Unknown Unknown Verified 12/02/23 15:53 menthol Allergy Unknown BLISTERS Verified 12/02/23 15:53 Quinolones Allergy Unknown Verified 12/02/23 15:53 aspirin AdvReac Unknown Vomiting Verified 12/02/23 15:53 Vital Signs Vital Signs - 24 hr 07/07/24 15:56 07/07/24 16:10 07/07/24 16:30 Temperature 98 F Pulse Rate 57 L 57 L 58 L Respiratory Rate 16 16 Blood Pressure 148/57 H 119/83 Pulse Oximetry 98 98 Oxygen Delivery Room Air 07/07/24 17:30 07/07/24 18:00 07/07/24 18:20 Temperature Pulse Rate 123 H 137 H 140 H Respiratory Rate 18 16 23 H Blood Pressure 122/78 103/56 L 94/54 L Pulse Oximetry 99 96 96 Oxygen Delivery 07/07/24 18:25 07/07/24 18:30 07/07/24 18:45 Temperature Pulse Rate 135 H 138 H 129 H Respiratory Rate 18 19 15 Blood Pressure 122/61 102/45 L 120/50 L Pulse Oximetry 96 96 96 Oxygen Delivery 07/07/24 19:00 07/07/24 19:01 07/07/24 19:15 Temperature Pulse Rate 120 H 118 H 122 H Respiratory Rate 13 14 16 Blood Pressure 117/71 117/71 Pulse Oximetry 96 Oxygen Delivery 07/07/24 19:16 07/07/24 19:30 07/07/24 19:31 Temperature Pulse Rate 146 H 135 H 138 H Respiratory Rate 15 18 16 Blood Pressure 126/81 102/61 Pulse Oximetry 95 95 Oxygen Delivery 07/07/24 19:36 07/07/24 19:41 07/07/24 19:42 Temperature Pulse Rate 123 H 122 H 133 H Respiratory Rate 15 28 H 25 H Blood Pressure 124/61 97/76 L Pulse Oximetry 94 Oxygen Delivery 07/07/24 19:45 07/07/24 19:49 07/07/24 19:51 Temperature Pulse Rate 115 H 109 H 111 H Respiratory Rate 20 16 12 Blood Pressure 119/67 109/60 Pulse Oximetry Oxygen Delivery 07/07/24 20:00 07/07/24 20:01 07/07/24 20:11 Temperature Pulse Rate 111 H 102 H 115 H Respiratory Rate 16 18 Blood Pressure 128/65 128/65 Pulse Oximetry Oxygen Delivery 07/07/24 20:15 07/07/24 20:16 07/07/24 20:17 Temperature Pulse Rate 117 H 103 H 127 H Respiratory Rate 17 14 24 H Blood Pressure 128/61 Pulse Oximetry Oxygen Delivery 07/07/24 20:30 07/07/24 20:31 07/07/24 20:56 Temperature Pulse Rate 106 H 107 H Respiratory Rate 16 32 H Blood Pressure 132/112 H Pulse Oximetry 96 Oxygen Delivery 07/07/24 21:00 07/07/24 21:09 07/07/24 21:15 Temperature Pulse Rate 101 H 108 H Respiratory Rate 17 15 Blood Pressure 116/53 L Pulse Oximetry 96 Oxygen Delivery 07/07/24 21:16 07/07/24 21:30 07/07/24 21:31 Temperature Pulse Rate 124 H 121 H 119 H Respiratory Rate 13 18 11 L Blood Pressure 115/62 90/63 L Pulse Oximetry 96 97 Oxygen Delivery 07/07/24 21:34 07/07/24 21:46 07/07/24 22:01 Temperature Pulse Rate 106 H 124 H 125 H Respiratory Rate 18 14 17 Blood Pressure 101/77 105/73 123/68 Pulse Oximetry 95 94 97 Oxygen Delivery 07/07/24 22:10 07/07/24 22:16 Temperature Pulse Rate 126 H 134 H Respiratory Rate 26 H Blood Pressure 123/68 115/79 Pulse Oximetry 96 Oxygen Delivery Exam Const: General: comfortable and no acute distress Other: A&O x3 HENMT: Mouth: Yes moist mucous membranes Eyes: Pupils: Equal, round and reactive pupils present Neck: Neck: supple Resp: Effort & Inspection: normal respiratory effort Other: Decreased air entry left lower lung field. Expiratory wheeze. GI: GI Palp: Yes Soft to palpation and No Tenderness to palpation present (GI) : General: Yes bladder normal to palpation Neuro: Motor exam (neuro): 5/5 motor strength present throughout Sensory Exam: normal sensation Extrem: Other: 2+ pitting edema of the bilateral lower extremities below the knees H&P: Results Labs Labs: Short CBC 07/07/24 Range/Units 18:01 WBC 5.7 (4.5-10.0) K/mm3 Hgb 10.6 L (12.0-15.0) g/dL Hct 33.4 L (37.0-47.0) % Plt Count 174 (150-375) k/mm3 BMP 07/07/24 18:01 Sodium 132 L Potassium 4.2 Chloride 103 Carbon Dioxide 24 BUN 10 D Creatinine 0.82 Glucose 171 H Calcium 9.0 Liver Function 07/07/24 Range/Units 18:01 Total Bilirubin 0.5 (0.2-1.3) mg/dL AST 23 (14-36) U/L ALT 16 (6-35) U/L Alkaline Phosphatase 92 (38-126) U/L Albumin 3.3 L (3.5-5.1) g/dL Urine 07/07/24 Range/Units 16:50 Urine Color Yellow (Yellow) Urine Appearance Clear (Clear) Urine pH 7.5 (5.0-9.0) Ur Specific [place] 1.011 (1.001-1.035) Urine Protein Negative (Negative) mg/dL Urine Glucose (UA) Negative (Negative) mg/dL Assessment and Plan Assessment and plan (1) Atrial fibrillation with rapid ventricular response: Code(s): I48.91 - Unspecified atrial fibrillation Status: Acute (2) Neurocognitive disorder: Code(s): R41.9 - Unspecified symptoms and signs involving cognitive functions and awareness Status: Acute (3) Pleural effusion: Code(s): J90 - Pleural effusion, not elsewhere classified Status: Acute (4) Incidental lung nodule: Code(s): R91.1 - Solitary pulmonary nodule Status: Acute (5) Chronic obstructive pulmonary disease: Code(s): J44.9 - Chronic obstructive pulmonary disease, unspecified Status: Acute Plan Ms. Cardenas is a 74-year-old female presenting with confusion for a few days. She carries a medical history of active tobacco abuse, COPD, history of acute hypoxic respiratory failure and pneumonia, paroxysmal atrial fibrillation on sotalol and Eliquis, pulmonary congestion/pulmonary hypertension, insulin-dependent diabetes mellitus, chronic anemia thrombocytopenia and hyponatremia. The patient is brought in by her daughter (Olesya) whom she lives with. Patient does not have a history of dementia but the daughter thinks it has been progressing over sometime. Last week the patient reported to the daughter she fell on her buttocks. Daughter has noticed worsening cognition over the past few days, she was using her bedside commode as a walker. The daughter does not think the patient has taken her meds. Daughter does not think she can take care of her anymore, requests to placement. In the ER patient presented in sinus rhythm but during the course entered AFib with RVR. She received 2 L normal saline along with diltiazem 10 mg IV push x1. Eventually placed on diltiazem GTT 5 milligrams/hour. She was transiently hypotensive as well. Laboratory workup revealed hemoglobin 10.6 which is around her baseline, sodium 132, serum creatinine 0.82 which is lower than her last admission when she had an OK. BNP 2370. Urinalysis unremarkable. Patient had no complaints aside from left ankle pain. She has a previous fracture and surgical repair. Ankle x-ray did not demonstrate acute osseous abnormalities but soft tissue swelling bilaterally and severe osteoarthritic changes. Head CT with no acute process. Venous Dopplers without acute process. CT chest with contrast demonstrating patchy opacities in left upper lobe suggestive of atelectasis versus pneumonia. Moderate to large left pleural effusion. 1.6 cm pleural base nodule in the left lower lobe with adjacent atelectasis. ----- The patient is currently on 5 milligrams/hour of diltiazem GTT. Her heart rate is in the 110s and blood pressure is acceptable. As the daughter does not think the patient has taken her meds we will restart her sotalol 80 mg p.o. b.i.d.. Discontinue diltiazem as tolerated. She will be admitted to IMU with telemetry monitoring. Fall precautions, ambulate with assistance. As for her Eliquis, will currently hold that in anticipation for possible thoracentesis depending on their wishes. More importantly, the patient has had 3 falls in recent history and there is a large bleeding risk. As for the patient's progressive neurocognitive decline, care coordination has been consulted for placement. As mentioned above, the daughter does not think she can take her the patient anymore. Patient is A&O x3 but answers more complicated questions in an arbitrary fashion. The patient provides some accurate history and is sure she would like to be full code. While the patient does not have any respiratory complaints or complications of pleural effusion they are amenable to diagnostic thoracentesis in light of the patient's heavy smoking history. She does not wish to quit smoking. However will hold off on that for now to give ample time for Eliquis washout. Left upper lobe fibrosis/atelectasis/opacity thus far appears unlikely to be infectious. It was present on CTA of chest on 05/01/2024 on last admission. Patient has a chronic dry cough which has not changed, does not report shortness of breath or fever. No leukocytosis. We will check blood cultures. ----- Full code. Ambulate with assistance. Fall precaution. Saline lock IV. PT OT. IMU/telemetry. Low-dose insulin sliding scale with Accu-Cheks a.c. HS. Patient previously lives at home with her daughter (Olesya), care coordination to help with placement. Hospitalist [facility] Advance Care Plan I have confirmed that the patient's Advanced Care Plan is present, code status is documented, or surrogate decision maker is listed in patient medical record.: Yes Medication Reconciliation I have utilized all available resources to obtain, update and review the patients current medications (includes all prescriptions, OTC, herbals, cannabis, and nutritional supplements).: Yes
--- NOTE | 2024-07-07 22:41 | PC.NURSE ---
This RN spoke with Ruba MACIEL in IMU to let them know pt is hard stick and will need phlebotomy to draw cultures
--- NOTE | 2024-07-07 23:35 | ADMGEN ---
This patient, Otilia Cardenas, was admitted to IMU Room 205-02. Patient/family oriented to hospital policies and general routines including ID bracelet, bed and alarms, visiting hours, pain management, procedures, bathroom and other care routines, personal items, smoking policy, room service/diet, and visiting hours. Information on how to activate the Rapid Response Team has been discussed. Patient/Family are encouraged to report perceived risks to care and to ask questions if they do not understand what they are told or what they should do.
[2024-07-08] VITALS (21 sets, daily range): BP systolic 100–121; BP diastolic 53–86; PULSE 55–124; RESP 16–22; TEMP 36.7–37.2; O2SAT 92–99; BMI 29.5
[2024-07-08] MEDS: SOTALOL HCL 80 MG TABLET PO ×3 (00:11→20:13)
[2024-07-08] MEDS: ACETAMINOPHEN 325 MG TABLET 650 MG PO (03:21)
[2024-07-08 04:42] LABS: Basophils Percent Auto 0.6 % (0.2-1.2); Eosinophils Absolute Auto 0.1 K/mm3 (0-0.3); Hematocrit 36.8 % (37.0-47.0); Hemoglobin 11.6 g/dL (12.0-15.0); Immature Granulocyte Absolute 0.01 K/mm3 (0.00-0.031); Immature Granulocyte Percent A 0.2 % (0-0.5); Lymphocytes Absolute Auto 0.87 K/mm3 (0.9-3.2); Lymphocytes Percent Auto 16.7 % (18.3-44.2); Mean Corpuscular HGB Conc 31.5 g/dl (32-36); Mean Corpuscular Hemoglobin 31.7 pg (26-34); Mean Corpuscular Volume 100.5 fl (80-100); Mean Platelet Volume 10.6 fl (7.4-10.4); Monocytes Absolute Auto 0.5 K/mm3 (0.1-0.6); Monocytes Percent Auto 9.8 % (2.6-8.5); Neutrophils Absolute Auto 3.8 K/mm3 (1.3-6.7); Neutrophils Percent Auto 71.7 % (45.5-73.1); Platelet Count Result 167 k/mm3 (150-375); Red Blood Count 3.66 M/mm3 (4.2-5.4); Red Cell Distribution Width 15.6 % (11.5-14.5); White Blood Count 5.2 K/mm3 (4.5-10.0)
--- NOTE | 2024-07-08 05:00 | ECG_ITS ---
Test Date: 2024-07-08 09:11:35 Measurements Intervals [place] Rate: 114 P: 0 AL: 0 QRS: 38 QRSD: 70 T: 21 QT: 308 QTc: 425 Interpretive Statements ATRIAL FIBRILLATION WITH RAPID VENTRICULAR RESPONSE LOW QRS VOLTAGE IN LIMB LEADS CONSIDER ANTERIOR INFARCT, AGE INDETERMINATE BASELINE ARTIFACT- I, II ABNORMAL ECG Compared to ECG 07/07/2024 18:14:59 HEART RATE HAS DECREASED Electronically Signed On 07-08-2024 11:52:18 CDT by Mejia Fulton D.O.
[2024-07-08 05:01] LABS: Anion Gap 7 mmol/L (4-12); Blood Urea Nitrogen 9 mg/dL (7-17); Calcium 8.9 mg/dL (8.4-10.2); Carbon Dioxide 24 mmol/L (22-30); Chloride 106 mmol/L (98-107); Estimated CRCL calculation 52 ml/min; Estimated Glomerular Filt Rate > 60; Glucose 166 mg/dL (65-110); Magnesium 1.8 mg/dL (1.6-2.3); Potassium 4.2 mmol/L (3.4-5.0); Sodium 137 mmol/L (137-145)
[2024-07-08] MEDS: dilTIAZem 100 MG/100 ML 100 MG/100 ML BAG 10 MG IV CONT (06:37)
[2024-07-08 08:39] LABS: Glucose Point of Care 334 mg/dl (65-105)
[2024-07-08] MEDS: GABAPENTIN 300 MG CAPSULE PO ×3 (08:49→18:00)
[2024-07-08 11:57] LABS: Glucose Point of Care 262 mg/dl (65-105)
--- NOTE | 2024-07-08 13:20 | P.PNIM_ITS ---
Progress Note: A&P Assessment and Plan (1) Atrial fibrillation with rapid ventricular response: Code(s): I48.91 - Unspecified atrial fibrillation Status: Acute (2) Neurocognitive disorder: Code(s): R41.9 - Unspecified symptoms and signs involving cognitive functions and awareness Status: Acute (3) Pleural effusion: Code(s): J90 - Pleural effusion, not elsewhere classified Status: Acute (4) Incidental lung nodule: Code(s): R91.1 - Solitary pulmonary nodule Status: Acute (5) Chronic obstructive pulmonary disease: Code(s): J44.9 - Chronic obstructive pulmonary disease, unspecified Status: Acute Plan Atrial fibrillation with RVR Titrate Diltiazem infusion, continue home Sotalol and Cardizem ECHO from [facility] showed EF 60-65% on Eliquis monitor Pneumonia CT Chest showed pacthy DANIEL f/u culture, started on Doxycycline monitor COPD continue home bronchodilators HTN titrate home meds with clinical course DM2 SSI with accucheks and adjust with clinical course DVT prophylaxis on Eliquis Subjective Date/time seen: 07/08/24 13:20 Interval history: Comfortable at bedside Review of Systems Review of Systems: All systems reviewed & are unremarkable except as noted in HPI and below (HPI) Exam Const: General: comfortable and no acute distress Other: A&O x3 HENMT: Mouth: Yes moist mucous membranes Eyes: Pupils: Equal, round and reactive pupils present Neck: Neck: supple Resp: Effort & Inspection: normal respiratory effort Other: Decreased air entry left lower lung field. Expiratory wheeze. : General: Yes bladder normal to palpation Bimanual exam- vagina & uterus: bladder normal to palpation Neuro: Cranial nerves: Yes Equal, round and reactive pupils present Motor exam (neuro): 5/5 motor strength present throughout Sensory Exam: normal sensation Extrem: Other: 2+ pitting edema of the bilateral lower extremities below the knees Objective Data Vital Signs Vital Signs: Vital Signs - 24 hr 07/07/24 15:56 07/07/24 16:10 07/07/24 16:30 Temperature 98 F Pulse Rate 57 L 57 L 58 L Respiratory Rate 16 16 Blood Pressure 148/57 H 119/83 Pulse Oximetry 98 98 Oxygen Delivery Room Air 07/07/24 17:30 07/07/24 18:00 07/07/24 18:20 Temperature Pulse Rate 123 H 137 H 140 H Respiratory Rate 18 16 23 H Blood Pressure 122/78 103/56 L 94/54 L Pulse Oximetry 99 96 96 Oxygen Delivery 07/07/24 18:25 07/07/24 18:30 07/07/24 18:45 Temperature Pulse Rate 135 H 138 H 129 H Respiratory Rate 18 19 15 Blood Pressure 122/61 102/45 L 120/50 L Pulse Oximetry 96 96 96 Oxygen Delivery 07/07/24 19:00 07/07/24 19:01 07/07/24 19:15 Temperature Pulse Rate 120 H 118 H 122 H Respiratory Rate 13 14 16 Blood Pressure 117/71 117/71 Pulse Oximetry 96 Oxygen Delivery 07/07/24 19:16 07/07/24 19:30 07/07/24 19:31 Temperature Pulse Rate 146 H 135 H 138 H Respiratory Rate 15 18 16 Blood Pressure 126/81 102/61 Pulse Oximetry 95 95 Oxygen Delivery 07/07/24 19:36 07/07/24 19:41 07/07/24 19:42 Temperature Pulse Rate 123 H 122 H 133 H Respiratory Rate 15 28 H 25 H Blood Pressure 124/61 97/76 L Pulse Oximetry 94 Oxygen Delivery 07/07/24 19:45 07/07/24 19:49 07/07/24 19:51 Temperature Pulse Rate 115 H 109 H 111 H Respiratory Rate 20 16 12 Blood Pressure 119/67 109/60 Pulse Oximetry Oxygen Delivery 07/07/24 20:00 07/07/24 20:01 07/07/24 20:11 Temperature Pulse Rate 111 H 102 H 115 H Respiratory Rate 16 18 Blood Pressure 128/65 128/65 Pulse Oximetry Oxygen Delivery 07/07/24 20:15 07/07/24 20:16 07/07/24 20:17 Temperature Pulse Rate 117 H 103 H 127 H Respiratory Rate 17 14 24 H Blood Pressure 128/61 Pulse Oximetry Oxygen Delivery 07/07/24 20:30 07/07/24 20:31 07/07/24 20:56 Temperature Pulse Rate 106 H 107 H Respiratory Rate 16 32 H Blood Pressure 132/112 H Pulse Oximetry 96 Oxygen Delivery 07/07/24 21:00 07/07/24 21:09 07/07/24 21:15 Temperature Pulse Rate 101 H 108 H Respiratory Rate 17 15 Blood Pressure 116/53 L Pulse Oximetry 96 Oxygen Delivery 07/07/24 21:16 07/07/24 21:30 07/07/24 21:31 Temperature Pulse Rate 124 H 121 H 119 H Respiratory Rate 13 18 11 L Blood Pressure 115/62 90/63 L Pulse Oximetry 96 97 Oxygen Delivery 07/07/24 21:34 07/07/24 21:46 07/07/24 22:01 Temperature Pulse Rate 106 H 124 H 125 H Respiratory Rate 18 14 17 Blood Pressure 101/77 105/73 123/68 Pulse Oximetry 95 94 97 Oxygen Delivery 07/07/24 22:10 07/07/24 22:16 07/07/24 22:31 Temperature Pulse Rate 126 H 134 H 111 H Respiratory Rate 26 H 15 Blood Pressure 123/68 115/79 123/66 Pulse Oximetry 96 95 Oxygen Delivery 07/07/24 22:56 07/08/24 00:00 07/08/24 00:00 Temperature 98.4 F 98.1 F Pulse Rate 111 H 114 H Respiratory Rate 15 22 H Blood Pressure 123/66 118/59 L 118/59 L Pulse Oximetry 95 92 Oxygen Delivery 07/08/24 00:11 07/08/24 00:28 07/08/24 00:54 Temperature Pulse Rate 114 H 114 H 118 H Respiratory Rate 22 H Blood Pressure Pulse Oximetry 92 Oxygen Delivery Room Air 07/08/24 02:15 07/08/24 02:32 07/08/24 04:00 Temperature Pulse Rate 103 H 101 H Respiratory Rate Blood Pressure 121/60 Pulse Oximetry 94 Oxygen Delivery Room Air 07/08/24 04:00 07/08/24 04:00 07/08/24 05:00 Temperature 98.4 F Pulse Rate 99 94 94 Respiratory Rate 21 H Blood Pressure 108/54 L 108/54 L Pulse Oximetry 95 Oxygen Delivery 07/08/24 05:58 07/08/24 06:37 07/08/24 08:00 Temperature 98.9 F Pulse Rate 118 H 108 H 106 H Respiratory Rate 18 Blood Pressure 113/59 L 100/53 L Pulse Oximetry 99 Oxygen Delivery 07/08/24 08:00 07/08/24 08:49 07/08/24 10:00 Temperature Pulse Rate 124 H 110 H 72 Respiratory Rate Blood Pressure Pulse Oximetry Oxygen Delivery 07/08/24 11:53 Temperature 98.6 F Pulse Rate 92 Respiratory Rate 18 Blood Pressure 120/65 Pulse Oximetry 99 Oxygen Delivery Intake/Output Intake/Output: Intake & Output 07/05/24 07/06/24 07/07/24 07/08/24 23:59 23:59 23:59 23:59 Intake Total 1009.9 417.4 Output Total 1250 850 Balance -240.1 -432.6 Meds/Results Medications: Active Medications Generic Name Dose Route Start Last Admin Trade Name Freq PRN Reason Stop Dose Admin Acetaminophen 650 mg 07/07/24 21:56 07/08/24 03:21 Acetaminophen 325 Mg Tablet PO 650 mg Q4H PRN Administration Mild Pain (1-3) or Fever Dextrose 12.5 gm 07/07/24 21:56 Dextrose 50% 25 Gm/50 Ml Syringe IV PUSH PRN PRN Hypoglycemia Protocol Gabapentin 300 mg 07/08/24 09:00 07/08/24 08:49 Gabapentin 300 Mg Capsule PO 300 mg TID TYREL Administration Glucagon 1 mg 07/07/24 21:56 Glucagon For Inj 1 Mg Vial IM PRN PRN Hypoglycemia Protocol Glucose 15 gm 07/07/24 21:56 Glucose Oral Gel 15 Gm Of Glucse In 37.5 Gm Tube PO PRN PRN Hypoglycemia Protocol Dextrose 1,000 mls @ 100 mls/hr 07/07/24 21:56 Dextrose 5% 1,000 Ml IVPB PRN PRN Hypoglycemia Protocol Diltiazem HCl 100 mg in 100 mls @ 5 mls/hr 07/08/24 05:05 07/08/24 06:37 Cardizem 100 Mg/100 Ml IV CONT 10 mg/hr .Q20H TYREL 10 mls/hr Administration 5 MG/HR Insulin Aspart 2 - 5 units 07/08/24 08:00 07/08/24 08:48 Insulin Aspart (*Bkc) 100 Units/Ml SUB-Q Not Given TIDWM [facility] Protocol Insulin Aspart 1 - 2 units 07/08/24 21:00 Insulin Aspart (*Bkc) 100 Units/Ml SUB-Q HS [facility] Protocol Insulin Glargine 25 units 07/08/24 21:00 Insulin Glargine (*Bkc) 100 Units/Ml SUB-Q HS [facility] Sotalol HCl 80 mg 07/07/24 22:20 07/08/24 08:49 Sotalol Hcl 80 Mg Tablet PO 80 mg Q12HR TYREL Administration Radiology Results: ITS Impressions Chest X-Ray 07/07/24 17:14 IMPRESSION: Left lower atelectasis versus pneumonia. Left upper lobe pleural-based opacity. CT evaluation is advised. Ankle X-Ray 07/07/24 17:17 IMPRESSION: No acute osseous abnormality of the right ankle. Head CT 07/07/24 17:20 IMPRESSION: No acute intracranial findings. Venous Doppler Study 07/07/24 18:01 IMPRESSION: Negative bilateral lower extremity venous US. No deep vein thrombosis. Chest CT 07/07/24 21:09 IMPRESSION: Patchy opacities in the left upper lobe suggestive of atelectasis versus p neumonia. No pleural base mass seen. Moderate to large pleural effusion. 1.6 cm Pleural base nodule in the left lower lobe with adjacent atelectasis. 3 months follow-up advised. Labs Labs: Laboratory Results - last 24 hr 07/07/24 07/07/24 07/07/24 16:09 16:50 18:01 WBC 5.7 RBC 3.36 L Hgb 10.6 L Hct 33.4 L MCV 99.4 MCH 31.5 MCHC 31.7 L RDW 15.7 H Plt Count 174 MPV 10.5 H Immature Gran % (Auto) 0.2 Neut % (Auto) 64.6 Lymph % (Auto) 23.5 [place] % (Auto) 10.1 H Eos % (Auto) 1.1 Baso % (Auto) 0.5 Lymph # (Auto) 1.33 [place] # (Auto) 0.6 Eos # (Auto) 0.1 Baso # (Auto) 0.0 Abs Immat Gran (auto) 0.01 Absolute Neuts (auto) 3.7 Absolute Nucleated RBC 0.000 Nucleated RBC % 0.0 PT 12.8 INR 0.9 APTT 20.5 L Sodium 132 L Potassium 4.2 Chloride 103 Carbon Dioxide 24 Anion Gap 5 BUN 10 D Creatinine 0.82 Estim Creat Clear Calc 53 Estimated GFR > 60 Glucose 171 H POC Capillary Glucose 200 H Lactic Acid 0.7 Calcium 9.0 Magnesium 2.0 Total Bilirubin 0.5 AST 23 ALT 16 Alkaline Phosphatase 92 NT-Pro-B Natriuret Pep 2370 H Total Protein 7.0 Albumin 3.3 L Procalcitonin 0.1 Urine Color Yellow Urine Appearance Clear Urine pH 7.5 Ur Specific [place] 1.011 Urine Protein Negative Urine Glucose (UA) Negative Urine Ketones Negative Ur Blood (Man) Negative Urine Nitrate Negative Urine Bilirubin Negative Urine Urobilinogen 0.2 Leukocyte Esterase Rfl Negative 07/08/24 07/08/24 07/08/24 04:32 08:31 11:18 WBC 5.2 RBC 3.66 L Hgb 11.6 L Hct 36.8 L MCV 100.5 H MCH 31.7 MCHC 31.5 L RDW 15.6 H Plt Count 167 MPV 10.6 H Immature Gran % (Auto) 0.2 Neut % (Auto) 71.7 Lymph % (Auto) 16.7 L [place] % (Auto) 9.8 H Eos % (Auto) 1.0 Baso % (Auto) 0.6 Lymph # (Auto) 0.87 L [place] # (Auto) 0.5 Eos # (Auto) 0.1 Baso # (Auto) 0.0 Abs Immat Gran (auto) 0.01 Absolute Neuts (auto) 3.8 Absolute Nucleated RBC 0.000 Nucleated RBC % 0.0 PT INR APTT Sodium 137 Potassium 4.2 Chloride 106 Carbon Dioxide 24 Anion Gap 7 BUN 9 Creatinine 0.79 Estim Creat Clear Calc 52 Estimated GFR > 60 Glucose 166 H POC Capillary Glucose 334 H 262 H Lactic Acid Calcium 8.9 Magnesium 1.8 Total Bilirubin AST ALT Alkaline Phosphatase NT-Pro-B Natriuret Pep Total Protein Albumin Procalcitonin Urine Color Urine Appearance Urine pH Ur Specific [place] Urine Protein Urine Glucose (UA) Urine Ketones Ur Blood (Man) Urine Nitrate Urine Bilirubin Urine Urobilinogen Leukocyte Esterase Rfl
[2024-07-08] MEDS: INSULIN ASPART (*BKC) 100 UNITS/ML SUB-Q ×2 (14:00→21:33)
[2024-07-08] MEDS: DOXYCYCLINE 100 MG/NS 100 ML 100 MG/100 ML BAG IVPB (18:01)
[2024-07-08] MEDS: dilTIAZem HCL CD 120 MG CAP.24HR PO (18:01)
[2024-07-08] MEDS: APIXABAN 5 MG TABLET PO (20:14)
[2024-07-08 20:31] LABS: Glucose Point of Care 278 mg/dl (65-105)
[2024-07-08] MEDS: INSULIN GLARGINE (*BKC) 100 UNITS/ML 25 UNITS SUB-Q (21:30)
[2024-07-09] VITALS (16 sets, daily range): BP systolic 112–123; BP diastolic 46–97; PULSE 52–113; RESP 16–20; TEMP 36.4–36.8; O2SAT 94–100
[2024-07-09] MEDS: DOXYCYCLINE 100 MG/NS 100 ML 100 MG/100 ML BAG IVPB ×2 (01:49→15:55)
[2024-07-09] MEDS: IPRATROPIUM BR 0.02% INH SOLN 0.5 MG/2.5 ML VIAL INHALATION ×3 (02:56→15:05)
[2024-07-09 04:29] LABS: Basophils Percent Auto 0.5 % (0.2-1.2); Eosinophils Absolute Auto 0.1 K/mm3 (0-0.3); Eosinophils Percent Auto 1.4 % (0-4.4); Hematocrit 34.8 % (37.0-47.0); Hemoglobin 10.7 g/dL (12.0-15.0); Immature Granulocyte Absolute 0.02 K/mm3 (0.00-0.031); Immature Granulocyte Percent A 0.3 % (0-0.5); Lymphocytes Absolute Auto 1.01 K/mm3 (0.9-3.2); Lymphocytes Percent Auto 15.2 % (18.3-44.2); Mean Corpuscular HGB Conc 30.7 g/dl (32-36); Mean Corpuscular Hemoglobin 31.8 pg (26-34); Mean Corpuscular Volume 103.6 fl (80-100); Mean Platelet Volume 10.4 fl (7.4-10.4); Monocytes Absolute Auto 0.6 K/mm3 (0.1-0.6); Neutrophils Absolute Auto 4.9 K/mm3 (1.3-6.7); Neutrophils Percent Auto 73.6 % (45.5-73.1); Platelet Count Result 175 k/mm3 (150-375); Red Blood Count 3.36 M/mm3 (4.2-5.4); Red Cell Distribution Width 15.9 % (11.5-14.5); White Blood Count 6.6 K/mm3 (4.5-10.0)
[2024-07-09 05:04] LABS: Alanine Aminotransferase 15 U/L (6-35); Albumin Level 2.9 g/dL (3.5-5.1); Alkaline Phosphatase 70 U/L (38-126); Anion Gap 8 mmol/L (4-12); Aspartate Amino Transferase 18 U/L (14-36); Bilirubin,Total 0.2 mg/dL (0.2-1.3); Blood Urea Nitrogen 15 mg/dL (7-17); Calcium 8.2 mg/dL (8.4-10.2); Carbon Dioxide 22 mmol/L (22-30); Chloride 106 mmol/L (98-107); Estimated CRCL calculation 43 ml/min; Estimated Glomerular Filt Rate 56; Glucose 221 mg/dL (65-110); Magnesium 1.9 mg/dL (1.6-2.3); Potassium 3.6 mmol/L (3.4-5.0); Sodium 136 mmol/L (137-145)
[2024-07-09 08:10] LABS: Glucose Point of Care 149 mg/dl (65-105)
[2024-07-09] MEDS: dilTIAZem HCL CD 120 MG CAP.24HR PO (09:27)
[2024-07-09] MEDS: GABAPENTIN 300 MG CAPSULE PO ×2 (09:27→15:55)
[2024-07-09] MEDS: SOTALOL HCL 80 MG TABLET PO (09:27)
[2024-07-09] MEDS: APIXABAN 5 MG TABLET PO (09:29)
[2024-07-09 11:58] LABS: Glucose Point of Care 156 mg/dl (65-105)
--- NOTE | 2024-07-09 16:14 | PM.DS ---
DS: Admitting Diagnosis Discharge Date 07/09/24 Admitting Diagnosis Confusion DS: Discharge Diagnosis Discharge Diagnosis (1) Atrial fibrillation with rapid ventricular response: Code(s): I48.91 - Unspecified atrial fibrillation Status: Acute DS: Summary Hospital Course Hospital Course: Ms. Cardenas is a 74-year-old female presenting with confusion for a few days. She carries a medical history of active tobacco abuse, COPD, history of acute hypoxic respiratory failure and pneumonia, paroxysmal atrial fibrillation on sotalol and Eliquis, pulmonary congestion/pulmonary hypertension, insulin-dependent diabetes mellitus, chronic anemia thrombocytopenia and hyponatremia. Eval eval revealed patient was in Afib with RVR and started on Cardizem infusion. patient was eventually weaned off Cardizem infusion onto her home Sotalol and Cardizem. ECHO from Apr 2024 showed normal LVF. Continue Eliquis. CT chest showed DANIEL opacities and patient was started on Doxycycline given her multiple allergies. Thus managed for pneumonia Also managed for Macrocytic anemia, hb 10.7. B12 283 patient started on B12 replaced and will follow up with PCP. F/u with PCP in 3-5 days Time Spent with Patient Time attestation: Total time spent providing and/or coordinating discharge services: DS: Data Data Completed and Pending Labs on day of discharge: Labs from last 24 hours 07/09/24 07/09/24 07/09/24 11:27 07:52 04:10 WBC 6.6 RBC 3.36 L Hgb 10.7 L Hct 34.8 L MCV 103.6 H MCH 31.8 MCHC 30.7 L RDW 15.9 H Plt Count 175 MPV 10.4 Immature Gran % (Auto) 0.3 Neut % (Auto) 73.6 H Lymph % (Auto) 15.2 L [place] % (Auto) 9.0 H Eos % (Auto) 1.4 Baso % (Auto) 0.5 Lymph # (Auto) 1.01 [place] # (Auto) 0.6 Eos # (Auto) 0.1 Baso # (Auto) 0.0 Abs Immat Gran (auto) 0.02 Absolute Neuts (auto) 4.9 Absolute Nucleated RBC 0.000 Nucleated RBC % 0.0 Sodium 136 L Potassium 3.6 Chloride 106 Carbon Dioxide 22 Anion Gap 8 BUN 15 D Creatinine 0.97 Estim Creat Clear Calc 43 Estimated GFR 56 L Glucose 221 H POC Capillary Glucose 156 H 149 H Calcium 8.2 L Magnesium 1.9 Total Bilirubin 0.2 AST 18 ALT 15 Alkaline Phosphatase 70 Total Protein 6.0 L Albumin 2.9 L Vitamin B12 07/09/24 07/08/24 04:02 20:26 WBC RBC Hgb Hct MCV MCH MCHC RDW Plt Count MPV Immature Gran % (Auto) Neut % (Auto) Lymph % (Auto) [place] % (Auto) Eos % (Auto) Baso % (Auto) Lymph # (Auto) [place] # (Auto) Eos # (Auto) Baso # (Auto) Abs Immat Gran (auto) Absolute Neuts (auto) Absolute Nucleated RBC Nucleated RBC % Sodium Potassium Chloride Carbon Dioxide Anion Gap BUN Creatinine Estim Creat Clear Calc Estimated GFR Glucose POC Capillary Glucose 278 H Calcium Magnesium Total Bilirubin AST ALT Alkaline Phosphatase Total Protein Albumin Vitamin B12 283.0 Preliminary micro results at discharge 07/07/24 23:42 Blood Culture - Preliminary Blood 07/07/24 23:42 Blood Culture - Preliminary Blood Discharge Plan Discharge Attending physician on discharge: Rafi Dunn Discharging Clinician: Rafi Dunn Anticipated Discharge Date/Time: 07/09/24 16:08 Patient Disposition: Home Activity: as tolerated Diet: as tolerated Patient Instructions: Antibiotic Form, Apixaban (By mouth), A-fib (Atrial Fibrillation) (DC), Safe Use of Anticoagulants (DC) Patient Language: Lithuanian Stand Alone Forms: General Discharge Information Follow-up/Referrals: Ernesto Alfaro MD [Primary Care Provider] - (F/u with PCP in 3-5 days ) Discharge Medications: New doxycycline hyclate 100 mg capsule 100 mg PO BID 7 Days Qty: 14 0RF cyanocobalamin-methylcobalamin 600-600 mcg tablet, sublingual 1 tablet sublingual DAILY 30 Days Qty: 30 1RF Continued gabapentin 300 mg capsule 300 mg PO TID albuterol sulfate 90 mcg/actuation HFA aerosol inhaler 2 inh INHALATION PRN PRN (Reason: SOB) diltiazem HCl [DILT-XR] 120 mg capsule,ext.rel 24h degradable 120 mg PO DAILY insulin aspart U-100 100 unit/mL (3 mL) insulin pen 1 sliding scale dose SUBCUT TIDWMEAL polyethylene glycol 3350 [Miralax] 17 gram Powder In Packet 17 g PO QAM Qty: 30 0RF sotalol 80 mg Tablet 80 mg PO Q12HR Qty: 60 1RF Eliquis 5 mg Tablet 5 mg PO Q12HR Qty: 60 1RF insulin glargine [Lantus Solostar U-100 Insulin] 100 unit/mL (3 mL) insulin pen 25 unit SUBCUT ACHS Qty: 15 0RF Date of admission: 07/08/24 07:25 Primary Care Provider: Ernesto Alfaro Admitting Provider: Violeta Oreilly Attending physician on admission: Violeta Oreilly Condition: Stable
[2024-07-09 18:45] LABS: Glucose Point of Care 298 mg/dl (65-105)
== END 2024-07-09 17:35 | disposition home or self-care (01) | DRG 308 ==
LOC: ANHED 22:11 → ANHIMU 22:28
PROVIDERS: Emergency Medicine; Admitting Provider General Practice; Emergency Provider Physician Assistant; PCP Family Medicine; Visit Provider Internal Medicine
DX: I48.0 Paroxysmal atrial fibrillation (principal); J18.9 Pneumonia, unspecified organism; J44.0 Chronic obstructive pulmonary disease with (acute) lower respiratory infection; J90 Pleural effusion, not elsewhere classified; E87.1 Hypo-osmolality and hyponatremia; D53.9 Nutritional anemia, unspecified; I73.00 Raynaud's syndrome without gangrene; R91.1 Solitary pulmonary nodule; E11.42 Type 2 diabetes mellitus with diabetic polyneuropathy; I10 Essential (primary) hypertension; E78.5 Hyperlipidemia, unspecified; F17.210 Nicotine dependence, cigarettes, uncomplicated; Z79.01 Long term (current) use of anticoagulants; Z90.49 Acquired absence of other specified parts of digestive tract; Z90.710 Acquired absence of both cervix and uterus; Z89.022 Acquired absence of left finger(s); Z89.021 Acquired absence of right finger(s); E66.9 Obesity, unspecified; Z68.33 Body mass index [BMI] 33.0-33.9, adult; R41.9 Unspecified symptoms and signs involving cognitive functions and awareness; D69.6 Thrombocytopenia, unspecified
CPT/HCPCS: 36415; 70450; 71045; 71260; 73610; 80048; 80053; 81003; 82607; 82948; 83605; 83735; 83880; 84145; 85025; 85610; 85730; 87040; 93005; 93970; 94640; 96361; 96366; 96374; 96375; 96376; 97161; 97165; 99285; A9270; G0378; J0612; J1815; J7030; Q9967

== ENCOUNTER 2024-07-25 20:00 | Inpatient (IN) | payer MEDICARE, MEDICAID, SELFPAY ==
[2024-07-25] VITALS (28 sets, daily range): BP systolic 105–160; BP diastolic 43–104; PULSE 61–112; RESP 14–28; TEMP 35.9–38.1; O2SAT 79–100
--- NOTE | ~2024-07-25 | CT_ITS ---
EXAMINATION: CT brain wo con DATE: 07/29/2024 11:16 INDICATION: Altered mental status TECHNIQUE: Computed tomography (CT) of the paranasal sinuses was performed without intravenous contra st. The dose-length product was 605.33 mGy-cm. Automated exposure control and iterative reconstructio n technique were employed. COMPARISON: None FINDINGS: Normal brain parenchymal volume for age. There are scattered moderate periventricular and s ubcortical white matter changes, most likely related to small vessel ischemic disease (microangiopath y). No ventriculomegaly or midline shift. Basilar cisterns are patent. There is intracranial atherosc lerosis. No acute infarction, hemorrhage, mass or mass effect. Paranasal sinuses are unremarkable. Sm all bilateral mastoid effusions. No depressed skull fractures. There is a small foreign body partiall y visualized in the left nasal soft tissues. IMPRESSION: 1. No acute intracranial abnormality. 2: Small bilateral mastoid effusions. Reviewed, dictated and finalized at location A.
--- NOTE | ~2024-07-25 | XR_ITS ---
Portable chest x-ray Comparison: 07/29/2024 Clinical History: Tube placement Findings: Endotracheal tube is in place, tip 18 mm above the elizabeth. NG tube in place. There is left upper lobe airspace consolidation. Right lung appears clear. Cardiomediastinal silhouette is stable . Bones and soft tissues are unremarkable. Impression: Support tubes, as above. Left upper lobe consolidation, likely pneumonia. Reviewed, dictated and finalized at location . Impression: Support tubes, as above. Left upper lobe consolidation, likely pneumonia.
--- NOTE | ~2024-07-25 | US_ITS ---
EXAMINATION:US venous doppler LE BI INDICATION:Leg swelling TECHNIQUE: Multiple grayscale, color flow and Doppler images of the right and left lower extremity de ep venous systems were obtained and reviewed. COMPARISON:No prior studies for comparison. FINDINGS: The right common femoral vein is not evaluated due to central venous catheter line. The com mon femoral, superficial femoral and popliteal veins demonstrate normal respiratory variation, augmen tation and compressibility. Color flow is also seen within the posterior tibial, peroneal, greater s aphenous and profunda veins. IMPRESSION: 1: No lower extremity deep venous thrombosis. Reviewed, dictated and finalized at location A.
--- NOTE | ~2024-07-25 | CT_ITS ---
CT Scan of the Chest without Contrast: Clinical Indication: Respiratory failure Technique: Contiguous sections were acquired throughout the chest without intravenous contrast. Dose reduction technique was used on this scan by utilizing automated exposure control and iterative recon struction technique. The dose-length product (DLP) was 412.49 mGy-cm. COMPARISON: 07/07/2024 Findings: There is no evidence of any significant mediastinal, hilar or axillary lymphadenopathy. The mediastin al soft tissues appear normal. No pericardial effusion. Moderate left pleural effusion is present, probably mildly increased from prior exam. There is minima l right pleural effusion. There is probable extensive left lower lobe atelectatic change and mild rig ht lower lobe atelectatic change. Probable additional atelectasis in the left upper lobe/lingula. Sta ble left apical airspace disease which could reflect chronic scarring versus pneumonia. . Images through the upper abdomen reveal extensive pancreatic calcifications, compatible with chroni c pancreatitis. Impression: Moderate left pleural effusion is increased from prior exam. Minimal right pleural effusion. Extensive presumed atelectatic changes in the left lower lobe and left upper lobe/lingula with mild r ight basilar atelectasis. Correlate clinically for pulmonary edema or pneumonia. Stable irregular airspace consolidation left lung apex, suggestive of chronic scarring or postinflamm atory change. Correlate for acute pneumonia. Reviewed, dictated and finalized at location M. Impression: Moderate left pleural effusion is increased from prior exam. Minimal right pleu ral effusion. Extensive presumed atelectatic changes in the left lower lobe and left upper lo be/lingula with mild right basilar atelectasis. Correlate clinically for pulmon moises edema or pneumonia. Stable irregular airspace consolidation left lung apex, suggestive of chronic s carring or postinflammatory change. Correlate for acute pneumonia.
--- NOTE | ~2024-07-25 | XR_ITS ---
EXAMINATION: XR chest 1V portable DATE: 07/28/2024 05:48 INDICATION: Intubated TECHNIQUE: frontal view of the chest was obtained. COMPARISON: Chest radiograph dated 07/27/2024 FINDINGS: Endotracheal tube tip 2.0 cm above the elizabeth. Nasogastric tube with proximal side-port below in the stomach and distal tip collimated off the study. There are patchy airspace opacities in both lungs . Asymmetric hazy opacities in the left hemithorax with some blunting of the left costophrenic angle consistent with small posterior layering pleural effusion. No pneumothorax or right-sided pleural eff usion. Heart size is normal. Old right-sided rib fractures. Surgical clips at the left breast and axi lla. IMPRESSION: 1. No significant change in a small left pleural effusion and patchy bilateral airspace opacities whi ch could represent atelectasis and/or pneumonia. Reviewed, dictated and finalized at location A. IMPRESSION: 1. No significant change in a small left pleural effusion and patchy bilateral airspace opacities which could represent atelectasis and/or pneumonia.
--- NOTE | ~2024-07-25 | XR_ITS ---
XR chest 1V portable 07/29/2024 06:13 Indication: Respiratory distress. Intubation. Procedure: AP portable chest Comparison: 07/28/2024 and 07/27/2024 Findings: Endotracheal tube 1.3 cm above the elizabeth. NG tube passes into the stomach. Bilateral airsp gasper disease is present which is multifocal. There is mild superimposed interstitial edema. Impression: 1: Multifocal airspace disease, compatible with pneumonia with probable superimposed mild interstitia l edema. Reviewed, dictated and finalized at location A. Impression: 1: Multifocal airspace disease, compatible with pneumonia with probable superim posed mild interstitial edema.
--- NOTE | ~2024-07-25 | XR_ITS ---
CHEST RADIOGRAPH CLINICAL HISTORY: hypoxia . COMPARISON: 07/07/2024 TECHNIQUE: Single portable view of the chest. FINDINGS The cardiomediastinal silhouette is unremarkable. Interstitial thickening is detected bilaterally. Patchy opacification of the left upper lobe is present system with a left upper lobe infiltrate. The remainder of the lungs are clear. IMPRESSION: Left upper lobe infiltrate Reviewed, dictated and finalized at location A. IMPRESSION: Left upper lobe infiltrate
--- NOTE | ~2024-07-25 | XR_ITS ---
Portable chest x-ray Comparison: 07/25/2024 Clinical History: Intubated Findings: Endotracheal tube and NG tube are in satisfactory positions. Extensive left perihilar cons olidation is present. Additional right suprahilar consolidation present. Cardiomediastinal silhouett e is stable. Osseous structures are intact. Impression: Stable support tubes. Stable left perihilar and right suprahilar consolidation. Correlate for bilateral pneumonia. Reviewed, dictated and finalized at location . Impression: Stable support tubes. Stable left perihilar and right suprahilar consolidation. Correlate for bilater al pneumonia.
--- NOTE | ~2024-07-25 | CT_ITS ---
History: Altered mental status PROCEDURE: CT head without contrast. COMPARISON: 07/07/2024 TECHNIQUE: Axial imaging of the head performed from the skull base to the vertex without IV contrast. Sagittal a nd coronal reformations obtained. Examination is somewhat limited secondary to motion artifact, despi te innumerable attempts. DLP: 1135 mGy-cm FINDINGS: The ventricles are enlarged. The dilatation of the ventricles is proportional to the degree of sulcal prominence, not uncommon in the senescent brain. Decreased attenuation is identified within the periventricular white matter, likely secondary to micr ovascular ischemic disease, in a patient of this age. There is no mass, mass effect or midline shift. There is no abnormal extra-axial fluid collection or large intracranial hemorrhage. Visualized paranasal sinuses are clear. The mastoid air cells are well aerated. No acute displaced fractures within the overlying cranium. Impression: No large acute intracranial hemorrhage or suspicious mass effect. Reviewed, dictated and finalized at location A. Impression: No large acute intracranial hemorrhage or suspicious mass effect.
--- NOTE | ~2024-07-25 | XR_ITS ---
CHEST RADIOGRAPH CLINICAL HISTORY: ET tube placement . COMPARISON: 07/25/2024, approximately 1 hour earlier TECHNIQUE: Single portable view of the chest. FINDINGS Interval placement of an endotracheal tube tip projecting approximately 4 cm above the base of the ca chapito. Orogastric tube identified with its tip projecting in the left upper quadrant of the abdomen, presuma joey within the stomach. Small bore catheter suspected within the right groin. Redemonstration of a left upper lobe infiltrate. Increased interstitial markings are identified bilaterally, findings suggesting mild to moderate pulm onary vascular congestion. The lungs are otherwise clear. IMPRESSION: Endotracheal tube in good radiographic position. Orogastric tube in good position, and ready for immediate use. Redemonstration of a left upper lobe infiltrate, now with mild to moderate pulmonary vascular congest ion Reviewed, dictated and finalized at location A. IMPRESSION: Endotracheal tube in good radiographic position. Orogastric tube in good position, and ready for immediate use. Redemonstration of a left upper lobe infiltrate, now with mild to moderate pulm onary vascular congestion
--- NOTE | ~2024-07-25 | XR_ITS ---
Portable chest x-ray Comparison: 07/26/2024 Clinical History: Intubated Findings: Endotracheal tube and NG tube are in satisfactory positions. Left perihilar airspace conso lidation and present. There are probable mild central congestive change. Minimal left pleural effusio n present. Cardiomediastinal silhouette is stable. Bones and soft tissues are unremarkable. Impression: Stable support tubes. Stable left perihilar consolidation, suspicious for pneumonia. Small left pleural effusion. Central congestive change. Reviewed, dictated and finalized at location M. Impression: Stable support tubes. Stable left perihilar consolidation, suspicious for pneumonia. Small left pleural effusion. Central congestive change.
[2024-07-25] MEDS: GLUCAGON FOR INJ 1 MG VIAL (20:07)
--- OUTSIDE RECORDS SUMMARY | 2024-07-25 20:29 | XMS_ITS ---
Author Organization [facility] Address [address] [place] [address] Care Team Providers Care Adjunct Instructor Name Role Phone Ernesto Alfaro MD Primary Care Provider [phone] Active Problems Problem Noted Date Diagnosed Date [...] from 11/01/2022:Stage IIIB(cT2, cN1(f), cM0, G2, ER-, MO-, HER2-) - Signed by Sena Blum MD on 11/15/2022 Pathologic stage from 07/22/2023: ypT0, pN0(sn), cM0, G3, ER-, MO-, HER2- - Signed by Sena Blum MD [...] [place]2016, [place] [facility] [place] developed infection of the one over [...] finger 10/31/2017 Current Treatment and Therapy Plans No current plan information found. Past Treatment and Therapy Plans ONCOLOGY TREATMENT Plan Name Start Date Discontinue Date Treatment Medications Discontinue Reason Plan Provider Cycles BREAST MET (PEMBROLIZUMA B) Q21 DAYS 09/06/19 24 07/22/2024 pembrolizumab (Keytruda) Infusion Therapy Complete Redd Middleton MD 11 of 25 cycles started BREAST NEOADJ (PEMBROLIZUMA B PACLITAXEL CARBOPLATIN-Q 3W) [...]
--- OUTSIDE RECORDS SUMMARY | 2024-07-25 20:29 | XMS_ITS | CONTINUITY OF CARE DOCUMENT ---
Author Name abhaylesleycody Address Unknown Organization [facility] Address [address] [place] [address] Phone [phone] Care Team Providers Care Fingerprint Clerk Name Role Phone Chandan SANABRIA, Shanda Unavailable [phone] RAYMOND VILLEGAS MD Unavailable [phone] RAYMOND VILLEGAS MD Unavailable INSURANCE PROVIDERS Payer name Policy type / Coverage type [employer] green party ID [place] [employer] Medicare [id number] HEALTHCARE AND FAMILY SERVICES Medicaid 1 [id number]
--- OUTSIDE RECORDS SUMMARY | 2024-07-25 20:29 | XMS_ITS | Clinical Summary ---
Author Organization [facility] Address [address] [place] [address] Care Team Providers Care Heel Coverer Name Role Phone Ernesto Alfaro MD Primary Care Provider [phone] Source Comments [facility],non-owned Affiliates and Associated Physician Practices is amultiple site organization consisting of ambulatory clinics and hospital sitesin [place], [place], [place] and [place]. This disclosure is being madepursuant to the Care Everywhere program and may not contain all information available regarding this patient. 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 Eventually referred to Dr. Ortez at [facility], underwent multiple I&Ds and Matristem [...] Encounters Date Type Department Care Team Description 07/24/2024 Travel 07/22/2024 Orders Only [facility] PHYS HEM/ONC [address] [place] [address] Redd Middleton MD 07/03/2024 9:00 AM CDT Office Visit [facility] - Hematology/Oncology [address] [place] [phone] Karli Carpenter, FUEL OPERATOR-DOCK ASSOCIATE Malignant neoplasm of upper-outer quadrant of left breast in female, estrogen receptor negative (HCC) (Primary Dx); Nausea and vomiting, unspecified vomiting type; Hyperglycemia; Falls; Fatigue, unspecified type 07/03/2024 8:20 AM CDT - 07/03/2024 11:59 PM CDT Hospital Encounter [facility] [address] [place] [address] Ernesto Alfaro MD Discharge Disposition: Home or Self Care 07/03/2024 Orders Only [facility] - Hematology/Oncology [address] [place] [phone] Redd Middleton MD Open knee wound, right, sequela 07/03/2024 Travel 06/12/2024 Telephone [facility] RAD ONC [address] [place] [address] Candace Wilkes RN General 06/05/2024 11:00 AM CDT Office Visit [facility] - Hematology/Oncology [address] [place] [phone] Karli Carpenter, FUEL OPERATOR-DOCK ASSOCIATE Malignant neoplasm of upper-outer quadrant of left breast in female, estrogen receptor negative (Primary Dx); Nausea and vomiting, unspecified vomiting type; Fatigue, unspecified type; Neuropathy; Type 2 diabetes mellitus with hyperglycemia, unspecified whether mcfp insulin use 06/05/2024 10:24 AM CDT - 06/05/2024 11:59 PM CDT Hospital Encounter [facility] [address] [place] [address] Ernesto Alfaro MD Discharge Disposition: Home or Self Care 06/05/2024 Travel 05/29/2024 Telephone [facility] RAD ONC [address] [place] [address] Candace Wilkes RN General 05/29/2024 Orders Only [facility] - Rad/Onc [address] [place] [phone] Kelsey Renner MD 05/25/2024 Orders Only [facility] - Hematology/Oncology [address] [place] [phone] Redd Middleton MD Malignant neoplasm of upper-outer quadrant of left breast in female, estrogen receptor negative from Last 3 Months Immunizations Immunization Administration [...] Recorded Patient Health Questionnaire-2 Score 0 08/12/2023 [facility] - Occupational Stress [...] place to sleep or slept in a alf (including now)? No 11/10/2023 Comments No Sex and Gender Information Value Date Recorded Sex Assigned at Not on file Legal Sex Female 5:54 PM NON MORSE INTERCEPT TECHNICIAN Gender Identity Female 09/24/2023 8:56 AM CDT [...] Inhaled Oxygen Concentration 50% 10/2022 10:00 AM NON MORSE INTERCEPT TECHNICIAN Weight 72.7 kg (160 lb 3.2 oz) 07/03/2024 10:14 AM CDT Height 157.5 cm (5' 2.01 ) 02/27/2024 9 :13 AM NON MORSE INTERCEPT TECHNICIAN Body Mass Index 29.29 02/27/2024 9:13 AM NON MORSE INTERCEPT TECHNICIAN Plan of Treatment Upcoming Encounters Date Type Department Care Team (Late st Contact Info) Description 08/02/2024 9:30 AM CDT Office Visit [facility] - General Surgery [address] [place] [phone] Sena Blum MD [address] [facility] [address] [place] [address] 08/06/2024 10:00 AM CDT Office Visit [facility] - Hematology/Oncology [address] [place] [phone] [place] [address] [place] [address] 12/05/2024 10:00 AM CDT Appointment [facility] RAD ONC [address] [place] [address] Kelsey Renner MD [address] [place] [phone] 02/11/2025 8:00 AM NON MORSE INTERCEPT TECHNICIAN Appointment [address] [phone] Health Maintenance Due Date Last Done Comments [...] history exists PNEUMOCOCCAL VACCINE 50+ Completed 08/10/2018, 11/2016 HEPATITIS C SCREENING Completed 11/10/2023 HEPATITIS B [...] Patient-Stated? Author Skin Integrity General No Mer Carson, RN Note: Expected end date: 4 weeks Skin integrity is maintained or improved. Interventions: Inspect under all devices; continue local wound care. Medical Devices Implanted Type Area Cloud Engagement Partner Device Identifier Shelf Expiration Date Model / Serial / Lot Graft Tissue Matristem Micromatrix [facility] - [id number] Implanted:Qty: 1 on 08/31/2017 by Juan Ortez MD at [facility] Left: Arm [employer] 06/19/2019 [id number] / [id number] / [id number] Description:Left AC wound Graft Tissue Cytal [id number] Mesh Brn - [id number] Implanted:Qty: 1 on 08/31/2017 by Juan Ortez MD at [facility] Left: Arm [employer] 06/19/2019 [id number] / [id number] / [id number] Description:Left Ac Graft Tissue Matristem Micromatrix Prcn - [id number] Implanted:Qty: 1 on 12/22/2017 by Juan Ortez MD at [facility] Right: Hand [employer] 03/20/2019 [id number] / [id number] / [id number] Mtrx Tissue 5x5cm Cytal Mesh Brn - [id number] Implanted:Qty: 1 on 12/22/2017 by Juan Ortez MD at [facility] Right: Hand [employer] 10/19/2019 [id number] / [id number] / [id number] Mtrx Tissue 5x5cm Cytal Mesh Brn - [id number] Implanted:Qty: 1 on 05/25/2018 by Juan Ortez MD at [facility] Right: Hand [employer] 12/19/2019 [id number] / [id number] / [id number] Mtrx Tissue 5x5cm Cytal Mesh Brn Implanted:Qty: 1 on 08/02/2018 by Juan Ortez MD at [facility] Right: Hand [employer] 06/18/2020 [id number] / / Mtrx Tissue Micromatrix Prcn Bldr - [id number] Implanted:Qty: 1 on 01/03/2019 by Juan Ortez MD at [facility] Right: Hand [employer] 09/17/2020 BY3770 / [id number] / [id number] Mtrx Tissue 5x5cm Cytal Prcn Bldr Brn - [id number] Implanted:Qty: 1 on 01/03/2019 by Juan Ortez MD at [facility] Right: Hand [employer] 06/18/2020 [id number] / [id number] / [id number] Mtrx Tissue 5x5cm Gentrix Prcn Urn Bldr - [id number] Implanted:Qty: 1 on 05/23/2019 by Juan Ortez MD at [facility] Right: Hand [employer] 01/18/2021 [id number] / [id number] / [id number] Mtrx Tissue 5x5cm Cytal Prcn Bldr Brn - [id number] Implanted:Qty: 1 on 05/23/2019 by Juan Ortez MD at [facility] Right: Hand [employer] 11/18/2020 [id number] / [id number] / [id number] Mtrx Tissue Micromatrix Prcn Bldr - [id number] Implanted:Qty: 1 on 05/23/2019 by Juan Ortez MD at [facility] Right: Hand [employer] 01/18/2021 [id number] / [id number] / [id number] Mtrx Tissue Micromatrix Prcn Bldr - [id number] Implanted:Qty: 1 on 09/12/2019 by Juan Ortez MD at [facility] Right: Hand [employer] 11/18/2020 VA3810 / [id number] / [id number] Mtrx Tissue 5x5cm Cytal Prcn Bldr Brn - [id number] Implanted:Qty: 1 on 09/12/2019 by Juan Ortez MD at [facility] Right: Hand [employer] 04/20/2021 [id number] / [id number] / [id number] Graft Bone Canc 4-9.5mm 15cc Frzdr p - [id number] Implanted:Qty: 1 on 04/07/2021 by Cristo Lewis MD at [facility] Right: Ankle [employer] 11/16/2024 [id number] / [id number] / Hydromark Breast Biopsy Site Marker Implanted:Qty: 1 on 11/01/2022 by Norma Carrasquillo MD at [facility] Left: Axilla Dev[employer]or [id number] 12/03/2024 4009-05-05-T1 / / [id number] Ultracor Twirl Breast Tissue Marker Implanted:Qty: 1 on 11/01/2022 by Norma Carrasquillo MD at [facility] Left: Breast [employer] [id number] 07/16/2025 [id number] / / Port Implinfn Powerport Clrvu Argd Shanae Implanted:Qty: 1 on 11/24/2022 at [facility] Right: Chest [employer] 12/19/2023 [id number] / / [id number] Description:RIJ inserted by Dr. Pool Melo Orth Ss 3.5-4 Mm Penny Screw Nonster Implanted:Qty: 1 on 01/05/2023 by Patrick Burgos DO at [facility] Right: Knee [employer] [id number] / / Screw 4mm 5mm 80mm .5 Thrd Rvrs Cut Flut Implanted:Qty: 1 on 01/05/2023 by Patrick Burgos DO at [facility] Right: Knee [employer] [id number] / / Screw 3.5mm 5mm 75mm Ft Rvrs Cut Flut Implanted:Qty: 1 on 01/05/2023 by Patrick Burgos DO at [facility] Right: Knee [employer] [id number] / / Nail Im 13mm 34cm Ntr Nail Fem Rtrgd Ant Implanted:Qty: 1 on 01/05/2023 by Patrick Burgos DO at [facility] Right: Knee [employer] [id number] / / Pin Fx 355cm 3mm Fem Nonthread Rtrgd Ntr Implanted:Qty: 1 on 01/05/2023 by Patrick Burgos DO at [facility] Right: Knee [employer] [id number] / / Screw 6mm 3.5mm 85mm Ft Slf-Tap Fx Ang Implanted:Qty: 1 on 01/05/2023 by Patrick Burgos DO at [facility] Right: Knee [employer] [id number] / / Screw 6mm 3.5mm 85mm Ft Slf-Tap Fx Ang Implanted:Qty: 1 on 01/05/2023 by Patrick Burgos DO at [facility] Right: Knee [employer] [id number] / / Screw 6mm 3.5mm 75mm Ft Slf-Tap Fx Ang Implanted:Qty: 1 on 01/05/2023 by Patrick Burgos DO at [facility] Right: Knee [employer] [id number] / / Screw 5mm 3.5mm 40mm Ft Slf-Tap Fx Ang Implanted:Qty: 2 on 01/05/2023 by Patrick Burgos DO at [facility] Right: Knee [employer] [id number] / / Screw 4.5mm 34mm Ft Stef Nonster Bone Implanted:Qty: 2 on 01/05/2023 by Patrick Burgos DO at [facility] Right: Knee [employer] [id number] / / Explanted Type Area Cloud Engagement Partner Device Identifier Shelf Expiration Date Model / Serial / Lot 2.7 Locking Explanted:Qty: 1 on 04/07/2021 by Cristo Lewis MD at [facility] Right: Ankle [employer] [id number] / / Screw 3.5mm 12mm Slf-Tap Cortx Evos Strl Explanted:Qty: 1 on 04/07/2021 by Cristo Lewis MD at [facility] Right: Ankle [employer] [id number] / / 3.5 Cortical Explanted:Qty: 1 on 04/07/2021 by rCisto Lewis MD at [facility] Right: Ankle [employer] [id number] / / Screw 3.5mm 14mm Slf-Tap Lck Evos Strl Explanted:Qty: 1 on 04/07/2021 by Cristo Lewis MD at [facility] Right: Ankle [employer] [id number] / / 6 Hole Clamp Implanted:Qty: 1 on 03/25/2021 by Cristo Lewis MD at [facility] Explanted:Qty: 1 on 12/09/2021 by Cristo Lewis MD at [facility] Right: Ankle [employer] [id number] / / Clamp Extfix Jtx 10.5-4mm Mini Mr Sf Bar Implanted:Qty: 1 on 03/25/2021 by Cristo Lewis MD at [facility] Explanted:Qty: 1 on 12/09/2021 by Cristo Lewis MD at [facility] Right: Ankle [employer] Trauma [id number] / / 5x35 Pin Implanted:Qty: 2 on 03/25/2021 by Cristo Lewis MD at [facility] Explanted:Qty: 2 on 12/09/2021 by Cristo Lewis MD at [facility] Right: Ankle [id number] / / Pin Trc 50mm 5mm Jtx Lng Ti Ntrd Strl Implanted:Qty: 1 on 03/25/2021 by Cristo Lewis MD at [facility] Explanted:Qty: 1 on 12/09/2021 by Cristo Lewis MD at [facility] Right: Ankle [employer] Trauma [id number] / / 4x35 Pin Implanted:Qty: 1 on 03/25/2021 by Cristo Lewis MD at [facility] Explanted:Qty: 1 on 12/09/2021 by Cristo Lewis MD at [facility] Right: Ankle [id number] / / Bar Pin Implanted:Qty: 3 on 03/25/2021 by Cristo Lewis MD at [facility] Explanted:Qty: 3 on 12/09/2021 by Cristo Lewis MD at [facility] Right: Ankle [employer] [id number] / / Post Extfix Jtx 30d Nonster Implanted:Qty: 2 on 03/25/2021 by Cristo Lewis MD at [facility] Explanted:Qty: 2 on 12/09/2021 by Cristo Lewis MD at [facility] Right: Ankle [employer] Trauma [id number] / / 300 Bar Implanted:Qty: 2 on 03/25/2021 by Cristo Lewis MD at [facility] Explanted:Qty: 2 on 12/09/2021 by Cristo Lewis MD at [facility] Right: Ankle [employer] [id number] / / Clamp Extfix Jtx 10.5mm Bar To Bar Sf Implanted:Qty: 2 on 03/25/2021 by Cristo Lewis MD at [facility] Explanted:Qty: 2 on 12/09/2021 by Cristo Lewis MD at [facility] Right: Ankle [employer] Trauma [id number] / / T Plate 27 Implanted:Qty: 1 on 04/07/2021 by Cristo Lewis MD at [facility] Explanted:Qty: 1 on 12/09/2021 by Cristo Lewis MD at [facility] Right: Ankle [employer] [id number] / / 2.7 Cortical Implanted:Qty: 1 on 04/07/2021 by Cristo Lewis MD at [facility] Explanted:Qty: 1 on 12/09/2021 by Cristo Lewis MD at [facility] Right: Ankle [employer] [id number] / / 2.7 Cortical Implanted:Qty: 1 on 04/07/2021 by Cristo Lewis MD at [facility] Explanted:Qty: 1 on 12/09/2021 by Cristo Lewis MD at [facility] Right: Ankle [employer] [id number] / / Screw 2.7mm 4.5mm 32mm T8 2mm Slf-Tap Implanted:Qty: 1 on 04/07/2021 by Cristo Lewis MD at [facility] Explanted:Qty: 1 on 12/09/2021 by Cristo Lewis MD at [facility] Right: Ankle [employer] [id number] / / 2.7 Locking Implanted:Qty: 2 on 04/07/2021 by Cristo Lewis MD at [facility] Explanted:Qty: 2 on 12/09/2021 by Cristo Lewis MD at [facility] Right: Ankle [employer] [id number] / / 2.7 Locking Implanted:Qty: 1 on 04/07/2021 by Cristo Lewis MD at [facility] Explanted:Qty: 1 on 12/09/2021 by Cristo Lewis MD at [facility] Right: Ankle [employer] [id number] / / Screw 3.5mm 12mm Slf-Tap Cortx Evos Strl Implanted:Qty: 1 on 04/07/2021 by Cristo Lewis MD at [facility] Explanted:Qty: 1 on 12/09/2021 by Cristo Lewis MD at [facility] Right: Ankle [employer] [id number] / / 3.5 9 Hole Implanted:Qty: 1 on 04/07/2021 by Cristo Lewis MD at [facility] Explanted:Qty: 1 on 12/09/2021 by Cristo Lewis MD at [facility] Right: Ankle [employer] [id number] / / 3.5 Locking Implanted:Qty: 1 on 04/07/2021 by Cristo Lewis MD at [facility] Explanted:Qty: 1 on 12/09/2021 by Cristo Lewis MD at [facility] Right: Ankle [employer] [id number] / / Screw 3.5mm 14mm Slf-Tap Lck Evos Strl Implanted:Qty: 2 on 04/07/2021 by Cristo Lewis MD at [facility] Explanted:Qty: 2 on 12/09/2021 by Cristo Lewis MD at [facility] Right: Ankle [employer] [id number] / / 3.5 Locking Implanted:Qty: 1 on 04/07/2021 by Cristo Lewis MD at [facility] Explanted:Qty: 1 on 12/09/2021 by Cristo Lewis MD at [facility] Right: Ankle [employer] [id number] / / 3.5 Locking Implanted:Qty: 1 on 04/07/2021 by Cristo Lewis MD at [facility] Explanted:Qty: 1 on 12/09/2021 by Cristo Lewis MD at [facility] Right: Ankle [employer] [id number] / / 3.5 Cortical Implanted:Qty: 1 on 04/07/2021 by Cristo Lewis MD at [facility] Explanted:Qty: 1 on 12/09/2021 by Cristo Lewis MD at [facility] Right: Ankle [employer] [id number] / / 3.5 Cortical Implanted:Qty: 1 on 04/07/2021 by Cristo Lewis MD at [facility] Explanted:Qty: 1 on 12/09/2021 by Cristo Lewis MD at [facility] Right: Ankle [employer] [id number] / / 1/3 Tubular Plate Implanted:Qty: 1 on 04/07/2021 by Cristo Lewis MD at [facility] Explanted:Qty: 1 on 12/09/2021 by Cristo Lewis MD at [facility] Right: Ankle [employer] [id number] / / 3.5 Cortical Implanted:Qty: 1 on 04/07/2021 by Cristo Lewis MD at [facility] Explanted:Qty: 1 on 12/09/2021 by Cristo Lewis MD at [facility] Right: Ankle [employer] [id number] / / Screw 4mm 40mm P/T Penny Hip Ss Strl Bone Implanted:Qty: 1 on 04/07/2021 by Cristo Lewis MD at [facility] Explanted:Qty: 1 on 12/09/2021 by Cristo Lewis MD at [facility] Right: Ankle [employer] [id number] / / 3.5 Cortical Implanted:Qty: 1 on 04/07/2021 by Cristo Lewis MD at [facility] Explanted:Qty: 1 on 12/09/2021 by Cristo Lewis MD at [facility] Right: Ankle [employer] [id number] / / 3.5 Locking Implanted:Qty: 2 on 04/07/2021 by Cristo Lewis MD at [facility] Explanted:Qty: 2 on 12/09/2021 by Cristo Lewis MD at [facility] Right: Ankle [employer] [id number] / / 2.7 Cortical Implanted:Qty: 1 on 04/07/2021 by Cristo Lewis MD at [facility] Explanted:Qty: 1 on 12/09/2021 by Cristo Lewis MD at [facility] Right: Ankle [employer] [id number] / / Wire K 1.6mm 150mm 1 End Troc Pnt Ss Sm Explanted:Qty: 1 on 01/05/2023 at [facility] Right: Knee [employer] [id number] / / Screw 4mm 5mm 85mm .5 Thrd Rvrs Cut Flut Explanted:Qty: 1 on 01/05/2023 by Patrick Burgos DO at [facility] Right: Knee [employer] [id number] / / 2.0 K-Wire Explanted:Qty: 1 on 01/05/2023 by Patrick Burgos DO at [facility] Right: Knee [id number] / / Screw 6mm 3.5mm 80mm Ft Slf-Tap Fx Ang Explanted:Qty: 1 on 01/05/2023 by Patrick Burgos DO at [facility] Right: Knee [employer] [id number] / / Wshr Orth Ss 3.5-4 Mm Penny Screw Nonster Explanted:Qty: 1 on 01/05/2023 by Patrick Burgos DO at [facility] Right: Knee [employer] [id number] / / Screw 5mm 3.5mm 45mm Ft Fx Ang Hex Head Explanted:Qty: 1 on 01/05/2023 by Patrick Burgos DO at [facility] Right: Knee [employer] [id number] / / Procedures Procedure Name Priority Date/Time [...] DIAGNOSTIC W CHARLES Routine 02/07/2024 9:00 AM NON MORSE INTERCEPT TECHNICIAN Malignant neoplasm of upper-outer quadrant of left breast in female, estrogen receptor negative HEPATITIS C AB SCREEN RFLX NAAT QUANT Routine 11/10/2023 11:36 AM CDT from Last 3 Months or Most Recently Relevant to Health Maintenance Results * (ABNORMAL) CBC W/ DIFFERENTIAL (07/03/2024 10:06 AM CDT) Only the most recent of2 resultswithin the time period is included. WBC 5.6 4.0 - 10.7 x10E9/L 07/03/2024 10:20 AM [facility] RBC Count 3.31(L) 3.90 - 5.20 x10E12/L 07/03/2024 10:20 AM [facility] Hemoglobin 10.5(L) 11.9 - 15.8 g/dL 07/03/2024 10:20 AM [facility] Hematocrit 32.5(L) 34.8 - 46.1 % 07/03/2024 10:20 AM [facility] MCV 98.2(H) 80.0 - 98.0 fL 07/03/2024 10:20 AM [facility] MCH 31.7 26.7 - 33.6 pg 07/03/2024 10:20 AM [facility] MCHC 32.3 31.7 - 36.3 g/dL 07/03/2024 10:20 AM [facility] RDW-CV 15.6(H) 11.3 - 14.8 % 07/03/2024 10:20 AM [facility] Platelet Count 173 150 - 420 x10E9/L 07/03/2024 10:20 AM [facility] MPV 11.1 7.8 - 11.4 fL 07/03/2024 10:20 AM [facility] Preliminary Absolute Neutrophil 4.16 1.60 - 7.50 x10E9/L 07/03/2024 10:20 AM [facility] Neutrophil % 74.7(H) 41.0 - 74.0 % 07/03/2024 10:20 AM [facility] Lymphocyte % 14.5(L) 17.0 - 47.0 % 07/03/2024 10:20 AM [facility] Monocyte % 8.6 3.0 - 11.0 % 07/03/2024 10:20 AM [facility] Eosinophil % 1.6 0.0 - 7.0 % 07/03/2024 10:20 AM [facility] Basophil % 0.4 0.0 - 1.6 % 07/03/2024 10:20 AM [facility] Immature Granulocytes % 0.2 0.0 - 1.0 % 07/03/2024 10:20 AM [facility] Neutrophil Absolute 4.16 1.60 - 7.50 x10E9/L 07/03/2024 10:20 AM [facility] Lymphocyte Absolute 0.81(L) 1.00 - 4.40 x10E9/L 07/03/2024 10:20 AM [facility] Monocyte Absolute 0.48 0.15 - 1.00 x10E9/L 07/03/2024 10:20 AM [facility] Eosinophil Absolute 0.09 0.00 - 0.60 x10E9/L 07/03/2024 10:20 AM [facility] Basophil Absolute 0.02 0.00 - 0.13 x10E9/L 07/03/2024 10:20 AM [facility] Blood BLOOD SPECIMEN / Unknown Venipuncture / Unknown 07/03/2024 10:06 AM CDT 07/03/2024 10:15 AM CDT us Redd Middleton MD LAB - HEMATOLOGY ORDERABLES Fi nal Result [facility] [address] [place] [address], [facility] [phone] * (ABNORMAL) COMPREHENSIVE METABOLIC PANEL (07/03/2024 10:06 AM [facility]) Only the most recent of2 resultswithin the time period is included. BUN 11 7 - 26 mg/dL 07/03/2024 10:54 AM [facility] Creatinine 0.83 0.56 - 0.96 mg/dL 07/03/2024 10:54 AM [facility] Sodium 134(L) 136 - 145 mmol/L 07/03/2024 10:54 AM [facility] Potassium 5.5(H) 3.5 - 4.5 mmol/L 07/03/2024 10:54 AM [facility] Chloride 105 98 - 107 mmol/L 07/03/2024 10:54 AM [facility] CO2 20(L) 22 - 29 mmol/L 07/03/2024 10:54 AM [facility] Glucose 250(H) 70 - 99 mg/dL 07/03/2024 10:54 AM [facility] Calcium 8.5 8.4 - 10.2 mg/dL 07/03/2024 10:54 AM [facility] Protein Total 6.5 6.0 - 8.3 g/dL 07/03/2024 10:54 AM [facility] Albumin 2.7(L) 3.4 - 5.0 g/dL 07/03/2024 10:54 AM [facility] Bilirubin Total 0.3 0.2 - 1.2 mg/dL 07/03/2024 10:54 AM [facility] Alkaline Phosphatase 78 40 - 150 U/L 07/03/2024 10:54 AM [facility] ALT 12 5 - 55 U/L 07/03/2024 10:54 AM [facility] AST 18 5 - 34 U/L 07/03/2024 10:54 AM [facility] Anion Gap 9 6 - 16 07/03/2024 10:54 AM [facility] BUN/Creatinine Ratio 13 7 - 23 07/03/2024 10:54 AM [facility] Osmolality Calculated 286 275 - 295 mOsm/kg 07/03/2024 10:54 AM [facility] Albumin/Globulin Ratio 0.7(L) 1.1 - 2.3 07/03/2024 10:54 AM [facility] eGFR by CKD-EPI 74(L) >=90 mL/min/1.7 3 m2 07/03/2024 10:54 AM [facility] Blood BLOOD SPECIMEN / Unknown Venipuncture / Unknown 07/03/2024 10:06 AM CDT 07/03/2024 10:13 AM CDT Redd Middleton MD LAB - CHEMISTRY ORDERABLES Fin al Result [address] [address], [facility] [phone] * TSH (07/03/2024 10:06 AM CDT) Only the most recent of2 resultswithin the time period is included. TSH 2.234 0.350 - 4.940 uIU/mL 07/03/2024 11:06 AM [facility] Blood BLOOD SPECIMEN / Unknown Venipuncture / Unknown 07/03/2024 10:06 AM CDT 07/03/2024 10:13 AM CDT us Redd Middleton MD LAB - CHEMISTRY ORDERABLES Fin al Result Performing Organization Address [facility]/ZIP Co de Phone Number [facility] [address] [place] [phone], [facility] [phone] * (ABNORMAL) HEMOGLOBIN A1C (06/05/2024 10:46 AM CDT) Hemoglobin A1c 10.9(H) <=5.6 % 06/05/2024 1:50 PM CDT [facility] Estimated Average Glucose 266 mg/dL 06/05/2024 1:50 PM CDT [facility] Comment: HbA1c Interpretation: Normal : < 5.7% Pre-diabetes: 5.7-6.4% Diabetes: Equal to or greater than 6.5% Test results diagnostic of diabetes should be repeated for confirmation. Treatment target values recommended by ADA and other clinical organizations should be used to evaluate metabolic control in patients. Reference: [place] Diabetes Association, Standards of Care in Diabetes -2020 In patients 70 years and older consider HbA1c target range of 7.0-7.5% (Reference: Silvio Elliott et al. JAMDA. 2012) The Sebia assay for the measurement of HbA1c is a National Glycohemoglobin Standardization Program (NGSP) certified method. Blood BLOOD SPECIMEN / Unknown Venipuncture / Unknown 06/05/2024 10:46 AM CDT 06/05/2024 10:58 AM CDT Karli Carpenter FUEL OPERATOR-DOCK ASSOCIATE LAB - CHEMISTRY ORDERA BLES Final Result Performing Organization Address City/[facility]/ZIP Co de Phone Number [facility] [address] [place] [phone], [facility] [phone] * Mammo Bilat Diagnostic W Charles (02/07/2024 9:00 AM NON MORSE INTERCEPT TECHNICIAN) Anatomical Region Laterality Modality Breast Bilateral Mammography 02/07/2024 8:25 AM NON MORSE INTERCEPT TECHNICIAN Impressions 02/07/2024 10:42 AM NON MORSE INTERCEPT TECHNICIAN IMPRESSION: No mammographic evidence of malignancy in [...] CATEGORY 2: BENIGN. Report dictated by [facility] (breast imaging fellow). IAlondra DO have personally reviewed and interpreted this examination/study. > Interpreting Provider: Alondra Mancia DO on 02/07/2024 10:42 AM Narrative 02/07/2024 10:42 AM NON MORSE INTERCEPT TECHNICIAN EXAMINATIONS: BILATERAL DIGITAL DIAGNOSTIC MAMMOGRAM AND BREAST TOMOSYNTHESIS LOCATION: [facility] EXAM DATE: 02/07/2024 HISTORY: Prior [...] alia Non-reac tive 11/10/2023 12:29 PM CDT [facility] Comment:Hepatitis C Antibody screen indicates [...] CDT Terence Brizuela MD LAB - CHEMISTRY ORDERABLES nal Result [facility] [address] [place] [address], [facility] [phone] from Last 3 Months or Most Recently Relevant to Health Maintenance Additional Health Concerns Infection Onset Date 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
--- OUTSIDE RECORDS SUMMARY | 2024-07-25 20:29 | XMS_ITS ---
Author Organization [facility] Address [address] [place], [place] [id number] Care Team Providers Care Plastics Scientist Name Role Phone JONNA LANGSTON Unavailable [phone] Ernesto Alfaro Unavailable Unavailable REASON FOR VISIT *General care Encounters Encounter Location Date Provider Diagnosis [facility] [place] [address] [place], [place] [phone] 07/23/2024 JONNA LANGSTON Plan Of Treatment No Information Progress Notes * Brigido CARDENASOB:[birth year] (74 yo F)Acc No.[id number]:07/23/2024 Patient: Otilia LA Provider: Larry Langston DPM :1950 A ge:74 Y S ex:Female Date:07/23/2024 Address:[address] [place], [place] [phone] Subjective: * Chief Complaints: * 1 . *General care. * Medical History: Objective: * Vitals: Assessment: Plan: * Treatment: * Billing Information: * Visit Code: * Procedure Codes: * Electronic signature of JONNA LANGSTON DPM on 07/25/2024 at 08:29 PM CDT Sign off status: Pending * Provider: Larry Langston DPM Date: 07/23/2024 Generated for Parker ng/Farfank/eTransmitting on: 07/25/2024 08:29 PM CDT
--- OUTSIDE RECORDS SUMMARY | 2024-07-25 20:29 | XMS_ITS | Encounter Summary ---
Author Organization [facility] Address [address] [facility] [place] [address] Care Team Providers Care Ruching Machine Operator Name Role Phone Ernesto Alfaro MD Primary Care Provider Encounter Details Date Type Department Care Team (Latest Contact Info) Description 07/24/2024 Travel Social History Tobacco Use Types Packs/Day Years Used Date Smoking Tobacco: Some Days Cigarettes 0.3 45 Smokeless Tobacco: Never Alcohol Use Standard Drinks/Week Comments No 0 [...] Recorded Patient Health Questionnaire-2 Score 0 08/12/2023 [facility] of Occupat ional Health - Occupational Stress [...] place to sleep or slept in a residential (including now)? 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 Answer Date of Assessment Author Yes 11/10/2023 11:12 AM Florencia Bates RN * Is person blind or have serious difficulty seeing? Answer Date of Assessment Author No 11/10/2023 11:12 AM JEFFREYT Florencia Vanessa RN * Does person have serious difficulty walking/climbing stairs? Answer Date of Assessment Author Yes 11/10/2023 11:12 AM Florencia Bates RN * Does person have difficulty dressing/bathing? Answer Date of Assessment Author Yes 11/10/2023 11:12 AM Florencia Bates RN * Does person have difficulty doing errands alone? Answer Date of Assessment Author Yes 11/10/2023 11:12 AM Florencia Bates RN documented as of this encounter Mental Status * Does person have difficulty concentrating/remembering/making decisions? Answer Entry Date Author No 11/10/2023 11:12 AM CDT Florencia Vanessa RN documented in this encounter Plan of Treatment Upcoming Encounters Date Type Department Care Team (Late st Contact Info) Description 08/02/2024 9:30 AM CDT Office Visit [facility] - General Surgery [address] [place] [phone] Sena Blum MD [address] [facility] [address] [place] [phone] 08/06/2024 10:00 AM CDT Office Visit [facility] - Hematology/Oncology [address] [place] [phone] Redd Middleton MD [address] [place] [address] 12/05/2024 10:00 AM CDT Appointment [facility] [address] [place] [address] Kelsey Renner MD [address] [place] [phone] 02/11/2025 8:00 AM TOOL MECHANIC Appointment [address] [phone] documented as of this encounter Goals Goal Patient Goal Type Associated Problems Recent Progress Patient-Stated? Author Skin Integrity General No Mer Carson RN Note: Expected end date: 4 weeks Skin integrity is maintained or improved. Interventions: Inspect under all devices; continue local wound care. documented as of this encounter Visit Diagnoses Not on filedocumented in this encounter Additional Health Concerns Infection Onset Date Last Indicated Resolved Time MRSA Hx 06/07/2023 06/07/2023 documented as of this encounter Care Teams Ruching Machine Operator Relationship Specialty Start Date End Date Ernesto Alfaro MD [address] [address] [address] [place] [address] PCP - General 01/03/17 documented as of this encounter
--- OUTSIDE RECORDS SUMMARY | 2024-07-25 20:29 | XMS_ITS | Patient Health Record ---
Author Organization [facility] Address [address] [facility] [address] [place], [place] [phone] Care Team Providers Care Retail Department Supervisor Name Role Phone JONNA LANGSTON Unavailable [phone] Ernesto Alfaro Unavailable Unavailable Allergies Allergen (clinical drug ingredient) Drug/Non Drug Allergy documented on EMR Reaction Allergy Type Onset Date Status Keflex Unknown Drug Allergy Active aspirin Aspirin Unknown Drug Allergy Active menthol Menthol Unknown Drug Allergy Active Reason For Referral No Information Encounters Encounter Location Date Provider Diagnosis [facility] [place] [address] [place], [place] [phone] 01/23/2024 JONNA SNOOK Tinea unguium B35.1 ; Pain in right toe(s) M79.674 ; Pain in left toe(s) M79.675 ; Atherosclerosis of [place] arteries of extremities with intermittent claudication, bilateral legs I70.213 and Type 2 diabetes mellitus with other circulatory complications E11.59 [facility] [place] [address] [place] [phone] 04/23/2024 JONNA SNWALEK Cellulitis of right lower limb L03.115 ; Venous insufficiency (chronic) (peripheral) I87.2 ; Tinea unguium B35.1 ; Pain in right toe(s) M79.674 ; Pain in left toe(s) M79.675 ; Atherosclerosis of [place] arteries of extremities with intermittent claudication, bilateral [...] toe(s) (ICD-10 - M79.675) 01/23/2024 Atherosclerosis of [place] arteries of extremities with intermittent claudication, bilateral legs (ICD-10 - I70.213) 04/23/2024 Atherosclerosis of [place] arteries of extremities with intermittent claudication, bilateral [...] the Amputation Prevention Guide. Plan Of Treatment No Information Insurance Providers Payer Name Payer Address Payer Phone Subscriber Number Group Number Insured Name Patient Relationship to Insured Coverage Start Date Coverage End Date Medicare Part B [facility] [address] [place] [phone] [id number] Otilia Lopez Self - patient is the insured
--- OUTSIDE RECORDS SUMMARY | 2024-07-25 20:29 | XMS_ITS | Encounter Summary ---
Author Organization [facility] Health Address [address] [place] [address] Care Team Providers Care Social Studies Teacher Name Role Phone Ernesto Alfaro MD Primary Care Provider [phone] Encounter Details Date Type Department Care Team (Late st Contact Info) Description 03/08/2022 Telephone [facility] [address] [place] [address] Amita Zhang MD [address] [place] [address] Social History Tobacco Use Types Packs/Day Years [...] on file Legal Sex Female 5:54 PM FACILITIES MAINTENANCE ENGINEER Gender Identity Female 09/24/2023 8:56 AM CDT [...] to make that appointment. Call Back #: [phone] LITIES MAINTENANCE ENGINEER documented in this encounter Plan of Treatment Upcoming Encounters Date Type Department Care Team (Late st Contact Info) Description 08/02/2024 9:30 AM CDT Office Visit [facility] - General Surgery [address] [place] [phone] Sena Blum MD [address] [facility] [address] [place] [phone] 08/06/2024 10:00 AM CDT Office Visit [facility] - Hematology/Oncology [address] [place] [phone] Redd Middleton MD [address] [place] [address] 12/05/2024 10:00 AM CDT Appointment [facility] [address] [place] [address] Kelsey Renner MD [address] [place] [phone] 02/11/2025 8:00 AM FACILITIES MAINTENANCE ENGINEER Appointment [address] [address] documented as of this encounter Visit Diagnoses [...] documented as of this encounter Care Teams Social Studies Teacher Relationship Specialty Start Date End Date Ernesto Alfaro MD [address] [address] [address] [place] [address] PCP - General 01/03/17 documented as of this encounter
--- OUTSIDE RECORDS SUMMARY | 2024-07-25 20:29 | XMS_ITS | Encounter Summary ---
Author Organization [facility] Address [address] [facility] [place] [address] Care Team Providers Care Asbestos Handler Name Role Phone Ernesto Alfaro MD Primary Care Provider [phone] Encounter Details Date Type Department Care Team (Late st Contact Info) Description 07/22/2024 Orders Only [facility] [address] [place] [address] Redd Middleton MD [address] [place] [address] Social History Tobacco Use Types Packs/Day Years [...] Recorded Patient Health Questionnaire-2 Score 0 08/12/2023 [facility] [place] of Occupat ional Health - Occupational Stress [...] on file Legal Sex Female 5:54 PM CONTACT 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 Answer Date of Assessment Author Yes 11/10/2023 11:12 AM JEFFREYT Florencia Vanessa RN * Is person blind or have serious difficulty seeing? Answer Date of Assessment Author No 11/10/2023 11:12 AM JEFFREYT Florencia Vanessa RN * Does person have serious difficulty walking/climbing stairs? Answer Date of Assessment Author Yes 11/10/2023 11:12 AM Florencia Batse RN * Does person have difficulty dressing/bathing? Answer Date of Assessment Author Yes 11/10/2023 11:12 AM CDT Florencia Vanessa RN * Does person have difficulty doing errands alone? Answer Date of Assessment Author Yes 11/10/2023 11:12 AM CDT Florencia Vanessa RN documented as of this encounter Mental Status * Does person have difficulty concentrating/remembering/making decisions? Answer Entry Date Author No 11/10/2023 11:12 AM CDT Florencia Vanessa RN documented in this encounter Plan of Treatment Upcoming Encounters Date Type Department Care Team (Late st Contact Info) Description 08/02/2024 9:30 AM CDT Office Visit [facility] - General Surgery [address] [place] [phone] Sena Blum MD [address] [facility] [address] [place] [address] 08/06/2024 10:00 AM CDT Office Visit [facility] - Hematology/Oncology [address] [place] [phone] Redd Middleton MD [address] [place] [address] 12/05/2024 10:00 AM CDT Appointment [facility] [address] [place] [address] Kelsey Renner MD [address] [place] [phone] 02/11/2025 8:00 AM CONTACT LENS LATHE OPERATOR Appointment [address] [address] documented as of this encounter Goals Goal [...] documented as of this encounter Care Teams Asbestos Handler Relationship Specialty Start Date End Date Ernesto Alfaro MD [address] [place] [address] PCP - General 01/03/17 documented as of this encounter
--- OUTSIDE RECORDS SUMMARY | 2024-07-25 20:30 | XMS_ITS | Clinical Summary ---
Author Organization [employer] KHADIJAH STOVALL [facility] Address [address] [place] [address] Care Team Providers Care Vice President Of Sales Name Role Phone Ernesto Alfaro MD Primary Care Provider [phone] Allergies Active Allergy Reactions Criticality Noted Date [...] take with food or milk Active Insulin [place], Disposable, (Novofine 32) 32 gauge x 1/4 Needle by [facility].(Non-Drug; Combo Route) route. Active insulin aspart U-100 [...] on file Legal Sex Female 8:21 AM CARDROOM ATTENDANT Gender Identity Not on file Sexual Orientation [...] AND B [place] Care Teams Vice President Of Sales Relationship Specialty Start Date End Date Ernesto Alfaro MD [address] [place] [address] PCP - General Family Practice 06/03/21
--- OUTSIDE RECORDS SUMMARY | 2024-07-25 20:30 | XMS_ITS ---
Author Organization [facility] Address [address] [place], [place] [id number] Care Team Providers Care Rink Rat Name Role Phone IVIS JONNA Unavailable [phone] Ernesto Alfaro Unavailable Unavailable Allergies Allergen (clinical [...] Location Date Provider Diagnosis [facility] [place] [address] [place], [place] [phone] 04/23/2024 JONNA LANGSTON Cellulitis of right lower limb L03.115 ; Venous insufficiency (chronic) (peripheral) I87.2 ; Tinea unguium B35.1 ; Pain in right toe(s) M79.674 ; Pain in left toe(s) M79.675 ; Atherosclerosis of [place] arteries of extremities with intermittent claudication, bilateral [...] toe(s) (ICD-10 - M79.675) 04/23/2024 Atherosclerosis of [place] arteries of extremities with intermittent claudication, bilateral [...] At-Risk Foot care, sooner if problems develop. Progress Notes * Veronica TENORIOEduardoOB:[birth year] (74 yo F)Acc No.[id number]:04/23/2024 Patient: Otilia LA Provider: Larry Langston DPM :1950 A ge:73 Y S ex:Female Date:04/23/2024 Address:[address] [place], [place] [phone] Subjective: * Chief Complaints: * 1 . [...] g reater than 3 seconds. Edema: m dou-bc-webekjce edema bilateral, right is greater than left. [...] & #160; 6 . A therosclerosis of [place] arteries of extremities with intermittent claudication, bilateral [...] develop.) * Billing Information: * Visit Code: 80951 Office Visit, Est Pt., Level 3. * Procedure Codes: * Electronic signature of JONNA LANGSTON DPM on 07/25/2024 at 08:29 PM CDT Sign off status: Pending * Provider: Larry Langston DPM Date: 0 04/23/2024 Generated for Nereidai keily/Santosg/eTransmitting on: 0 07/25/2024 08:29 PM CDT History and Physical Notes * [...] Vascular Dorsalis pedis pulse: 1/4 bilateral Edema: znbp-uu-mqgpcfhl [place] ma bilateral, right is greater than left Capillary refill: greater than 3 secon ds Posterior tibial pulse: 0/4 bilateral Physical Examination General appearance: Alert, pleasant, well-nourished and in no acute distress Musculoskeletal Muscle Strength Muscle strength is 5/5 in regards to dorsiflexion, plantarflexion, inversion, and eversion in bilateral lower extremities
--- OUTSIDE RECORDS SUMMARY | 2024-07-25 20:30 | XMS_ITS ---
Author Organization [facility] Address [address] [place], [place] [phone] Care Team Providers Care Exhibit Specialist Name Role Phone JONNA LANGSTON Unavailable [phone] Ernesto Alfaro Unavailable Unavailable REASON FOR VISIT cellulitis check Encounters Encounter Location Date Provider Diagnosis [facility] [place] [address] [place], [place] [phone] 05/14/2024 JONNA LANGSTON Plan Of Treatment No Information Progress Notes * Brigido CARDENASOB:[birth year] (74 yo F)Acc No.[id number]:05/14/2024 Patient: Otilia LA Provider: Larry Langston DPM :1950 A ge:74 Y S ex:Female Date:05/14/2024 Address:[address] [place], [place] [phone] Subjective: * Chief Complaints: * 1 . Cellulitis check. * Medical History: Objective: * Vitals: Assessment: Plan: * Treatment: * Billing Information: * Visit Code: * Procedure Codes: * Electronic signature of JONNA LANGSTON DPM on 07/25/2024 at 08:29 PM CDT Sign off status: Pending * Provider: Larry Langston DPM Date: 05/14/2024 Generated for Parker michaud/Corey/eTransmitting on: 07/25/2024 08:29 PM CDT
[2024-07-25] MEDS: DEXTROSE 50% 25 GM/50 ML SYRINGE IV PUSH (20:31)
--- NOTE | 2024-07-25 20:37 | ED_ITS ---
HPI - Altered Mental Status General Chief Complaint: Altered Mental Status Stated Complaint: UNCONSIOUS-BS 47 Time Seen by Provider: 07/25/24 20:10 History of Present Illness HPI narrative: Patient is a 74-year-old female who was found home unconscious. Low blood sugar. EMS unable to get a line. Here patient is also with sonorous respirations and clamped down peripherally. I was unsuccessful with an external jugular IV. Patient was given IM glucagon and emergent central line placed right femoral. Chart review shows patient takes Lantus as well as sliding scale insulin. She is also on Eliquis. Related Data Home Medications ?Medication ?Instructions ?Recorded ?Confirmed ?Last Taken ?Type albuterol sulfate 90 mcg/actuation 2 inh inhalation PRN PRN SOB 07/14/20 07/08/24 Unknown History aerosol inhaler gabapentin 300 mg capsule 300 mg PO TID 07/14/20 07/08/24 07/23/20 History diltiazem HCl 120 mg 120 mg PO DAILY 12/07/21 07/08/24 04/27/24 History capsule,extended release 24 hr, controlled (DILT-XR) insulin aspart U-100 100 unit/mL 1 sliding scale dose subcut 05/01/24 07/08/24 Unknown History (3 mL) subcutaneous pen TIDWMEAL Allergies Allergy/AdvReac Type Severity Reaction Status Date / Time eucalyptus Allergy Intermediate BLISTERS Verified 12/02/23 15:53 quinine Allergy Intermediate HIVES Verified 12/02/23 15:53 cephalexin Allergy Unknown Itching Verified 05/07/24 12:26 levofloxacin Allergy Unknown Unknown Verified 12/02/23 15:53 menthol Allergy Unknown BLISTERS Verified 12/02/23 15:53 Quinolones Allergy Unknown Verified 12/02/23 15:53 aspirin AdvReac Unknown Vomiting Verified 12/02/23 15:53 Review of Systems 2 Review of Systems: ROS unobtainable: Yes unobtainable due to mental status PMFSH Past Medical History Medical History Paroxysmal atrial fibrillation Chronic anemia MRSA infection MRSA infection of the right hand in October 2013. 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 Amputation of digit of left hand Secondary to osteomyelitis. Status post excision of lipoma History of carpal tunnel release History of section History of hysterectomy History of appendectomy History of exploratory laparotomy History of open reduction and internal fixation (ORIF) procedure (03/2021) Repair of right ankle fracture per Dr. Cristo Lewis at [facility]. Family History Family History Father Diabetes mellitus Family history of malignant neoplasm Colon cancer Mother Family history of malignant neoplasm Social History Social History Social History: Surrogate medical decision maker: Kavitha Sterling, daughter. Code status: Full code. Smoking packs per day: 1 Smoking cigarettes per day: 20.0 Years smoked: 30 Smoking pack-years: 30.00 Smoking status: Former smoker Tobacco type: cigarettes Second hand tobacco smoke exposure: Yes Additional smoking assessment comments: Up to 2 PPD at one point (for 50 years, 100 pack years) . Still vapes. Alcohol intake: never Substance use: never Substance use type: does not use Do You Feel Safe in your Home?: Yes Lack of Transportation: No Lack of Food: Never True Current Housing: I Have Housing Concerned About Future Housing: No Difficulty Paying Gas/Electric Bills: No Difficulty Paying for Meds: No Currently Unemployed: No Education: Decline to Answer Difficulty w/ Childcare or Family Care: No Living arrangements: with family Additional living arrangements comments: The patient lives with her daughter Kavitha in [place]. Spiritual care concerns: No Exam 2 Narrative: GENERAL: Chronically ill-appearing, unresponsive. HEAD: Normocephalic, atraumatic. EYES: PERRL ENT: Mucous membranes moist. NECK: Supple. CHEST: Clear to auscultation. No respiratory distress but has some snoring. HEART: Regular rate and rhythm. Normal central pulses, poor peripheral perfusion. ABDOMEN: Soft, nontender, nondistended. EXTREMITIES: No deformity of the extremities. Slow capillary refill. SKIN: Warm, dry, no rash. NEURO: Not responsive to external stimuli due to profound hyperglycemia. Course Course Emergency Course: On blood sugar normal eyes but patient is still unresponsive to sternal rub with snoring respirations. She is only requiring 5 L of oxygen but she has no gag reflex. Discussed with ICU, Dr. Rodríguez. Will start patient on meropenem for UTI and pneumonia. Will also get a noncontrast chest CT prior to going up stairs to the ICU. Due to lack of gag reflex is my inclination to intubate the patient. I did give some Narcan at the suggestion of Dr. Rodríguez without improvement of the clinical condition. Accepted by the hospitalist service. Vital Signs Vital signs: Vital Signs Temperature 96.6 F L 07/25/24 19:57 Pulse Rate 61 07/25/24 19:57 Respiratory Rate 23 H 07/25/24 19:57 Blood Pressure 105/77 07/25/24 19:57 Pulse Oximetry 80 L 07/25/24 19:57 Oxygen Delivery Nasal Cannula 07/25/24 19:57 Oxygen Flow Rate 6 07/25/24 19:57 Temperature 100.2 F H 07/25/24 22:33 Pulse Rate 85 07/25/24 22:33 Respiratory Rate 17 07/25/24 22:33 Blood Pressure 160/68 H 07/25/24 22:33 Pulse Oximetry 95 07/25/24 22:33 Oxygen Delivery Non-Rebreather Mask 07/25/24 21:19 Oxygen Flow Rate 15 07/25/24 21:19 Procedures Central Line Placement Right Femoral: Central Line Date: 07/25/24 Central Line Time: 21:25 Performed Emergently - Given emergent patient condition, temporal constraints may have precluded informed consent.: Yes Patient Placed on Monitor/Pulse Ox: Yes Max. Sterile Barrier Technique: Caps, large sterile sheet and hand hygiene Central Line Prep: 2% chlorhexidine scrub Technique: US-Guided Ultrasound Used for Placement: Yes Central Line Lumen Inserted: triple Post Procedure: sutured in place, good blood return, all ports aspirated, flushed, capped (DO NOT USE BROWN PORT, it flushes but does not draw back.) and sterile dressing applied Patient Tolerated Procedure: well Complications: none Additional Comments: DO NOT USE BROWN PORT, it flushes but does not draw back. Intubation Intubation #1: Intubation Date: 07/25/24 Intubation Time: 22:25 Time out performed: Yes sedative: Etomidate Mg Given: 30 paralytic: Succinylcholine Mg Given: 100 Laryngoscope: Horace (3) Tube Size (cm): Cuffed Method of Intubation: orotracheal Number of Attempts: 1 Tube Secured Depth (cm): 23 Tube Secured Location: lips Tube Placement Confirmation: visualized tube passing through cords, equal breath sounds bilaterally, no breath sounds over epigastrium and confirmation by capnometry Patient Tolerated Procedure: well Intubation Complications: none MDM - Altered Mental Status Lab Data 07/25/24 20:46 07/25/24 20:46 Labs: Lab Results 07/25/24 07/25/24 07/25/24 Range/Units 20:15 20:42 20:46 WBC 12.2 H (4.5-10.0) K/mm3 RBC 3.43 L (4.2-5.4) M/mm3 Hgb 10.8 L (12.0-15.0) g/dL Hct 35.5 L (37.0-47.0) % MCV 103.5 H (80-100) fl MCH 31.5 (26-34) pg MCHC 30.4 L (32-36) g/dl RDW 15.3 H (11.5-14.5) % Plt Count 216 (150-375) k/mm3 MPV 10.5 H (7.4-10.4) fl Immature Gran % (Auto) 0.3 (0-0.5) % Neut % (Auto) 91.0 H (45.5-73.1) % Lymph % (Auto) 4.5 L (18.3-44.2) % [place] % (Auto) 3.9 (2.6-8.5) % Eos % (Auto) 0.1 (0-4.4) % Baso % (Auto) 0.2 (0.2-1.2) % Lymph # (Auto) 0.55 L (0.9-3.2) K/mm3 [place] # (Auto) 0.5 (0.1-0.6) K/mm3 Eos # (Auto) 0.0 (0-0.3) K/mm3 Baso # (Auto) 0.0 (0.0-0.1) K/mm3 Abs Immat Gran (auto) 0.04 H (0.00-0.031) K/mm3 Absolute Neuts (auto) 11.1 H (1.3-6.7) K/mm3 Absolute Nucleated RBC 0.000 (0.0-0.012) K/mm3 Nucleated RBC % 0.0 (0.0-0.2) % PT 14.0 (11.1-14.7) Seconds INR 1.0 APTT 37.0 H (22.3-36.8) Seconds Methemoglobin Sodium 135 L (137-145) mmol/L Potassium 4.7 (3.4-5.0) mmol/L Chloride 100 (98-107) mmol/L Carbon Dioxide 30 (22-30) mmol/L Anion Gap 5 (4-12) mmol/L BUN 17 (7-17) mg/dL Creatinine 0.78 (0.7-1.0) mg/dL Estim Creat Clear Calc Not Reportable Estimated GFR > 60 (59 - ) Glucose 286 H (65-110) mg/dL POC Capillary Glucose < 20 L* 121 H (65-105) mg/dl Lactic Acid 1.2 (0.7-2.0) mmol/L Calcium 8.3 L (8.4-10.2) mg/dL Total Bilirubin 0.4 (0.2-1.3) mg/dL AST 27 (14-36) U/L ALT 21 (6-35) U/L Alkaline Phosphatase 98 (38-126) U/L Total Protein 7.0 (6.3-8.2) g/dL Albumin 3.1 L (3.5-5.1) g/dL Procalcitonin 0.1 ng/mL Urine Color Yellow (Yellow) Urine Appearance Cloudy H (Clear) Urine pH 5.0 (5.0-9.0) Ur Specific [place] 1.016 (1.001-1.035) Urine Protein 1+ H (Negative) mg/dL Urine Glucose (UA) 1+ H (Negative) mg/dL Urine Ketones Negative (Negative) mg/dL Ur Blood (Man) 2+ H (Negative) Urine Nitrate Positive H (Negative) Urine Bilirubin Negative (Negative) Urine Urobilinogen 0.2 (<2.0) mg/dL Add Ur Microanalysis Reviewed Leukocyte Esterase Rfl 3+ H (Negative) KAL/UL Urine RBC 0-2 (0-2) /hpf Urine WBC >100 H (0-3) /hpf Urine WBC Clumps Present H (None) /HPF Ur Squamous Epith Cells None seen (Few) /hpf Urine Bacteria 4+ H /hpf Urine Casts 3-5 Hyaline Casts Present (None) /lpf Urine Opiates Screen (Negative) Urine Methadone Screen (Negative) Ur Barbiturates Screen (Negative) Ur Phencyclidine Scrn (Negative) Ur Amphetamine Screen (Negative) U Benzodiazepines Scrn (Negative) Urine Cocaine Screen (Negative) U Cannabinoids Screen (Negative) Ethyl Alcohol < 10 (<10) mg/dL Influenza A (RT-PCR) Influenza B (RT-PCR) RSV (RT-PCR) SARS-CoV-2 RNA (RT-PCR) 07/25/24 07/25/24 07/25/24 Range/Units 21:10 21:13 21:27 WBC (4.5-10.0) K/mm3 RBC (4.2-5.4) M/mm3 Hgb (12.0-15.0) g/dL Hct (37.0-47.0) % MCV (80-100) fl MCH (26-34) pg MCHC (32-36) g/dl RDW (11.5-14.5) % Plt Count (150-375) k/mm3 MPV (7.4-10.4) fl Immature Gran % (Auto) (0-0.5) % Neut % (Auto) (45.5-73.1) % Lymph % (Auto) (18.3-44.2) % [place] % (Auto) (2.6-8.5) % Eos % (Auto) (0-4.4) % Baso % (Auto) (0.2-1.2) % Lymph # (Auto) (0.9-3.2) K/mm3 [place] # (Auto) (0.1-0.6) K/mm3 Eos # (Auto) (0-0.3) K/mm3 Baso # (Auto) (0.0-0.1) K/mm3 Abs Immat Gran (auto) (0.00-0.031) K/mm3 Absolute Neuts (auto) (1.3-6.7) K/mm3 Absolute Nucleated RBC (0.0-0.012) K/mm3 Nucleated RBC % (0.0-0.2) % PT (11.1-14.7) Seconds INR APTT (22.3-36.8) Seconds Methemoglobin Pending Sodium (137-145) mmol/L Potassium (3.4-5.0) mmol/L Chloride (98-107) mmol/L Carbon Dioxide (22-30) mmol/L Anion Gap (4-12) mmol/L BUN (7-17) mg/dL Creatinine (0.7-1.0) mg/dL Estim Creat Clear Calc Estimated GFR (59 - ) Glucose (65-110) mg/dL POC Capillary Glucose 124 H (65-105) mg/dl Lactic Acid (0.7-2.0) mmol/L Calcium (8.4-10.2) mg/dL Total Bilirubin (0.2-1.3) mg/dL AST (14-36) U/L ALT (6-35) U/L Alkaline Phosphatase (38-126) U/L Total Protein (6.3-8.2) g/dL Albumin (3.5-5.1) g/dL Procalcitonin ng/mL Urine Color (Yellow) Urine Appearance (Clear) Urine pH (5.0-9.0) Ur Specific [place] (1.001-1.035) Urine Protein (Negative) mg/dL Urine Glucose (UA) (Negative) mg/dL Urine Ketones (Negative) mg/dL Ur Blood (Man) (Negative) Urine Nitrate (Negative) Urine Bilirubin (Negative) Urine Urobilinogen (<2.0) mg/dL Add Ur Microanalysis Leukocyte Esterase Rfl (Negative) KAL/UL Urine RBC (0-2) /hpf Urine WBC (0-3) /hpf Urine WBC Clumps (None) /HPF Ur Squamous Epith Cells (Few) /hpf Urine Bacteria /hpf Urine Casts Hyaline Casts (None) /lpf Urine Opiates Screen Negative (Negative) Urine Methadone Screen Negative (Negative) Ur Barbiturates Screen Negative (Negative) Ur Phencyclidine Scrn Negative (Negative) Ur Amphetamine Screen Negative (Negative) U Benzodiazepines Scrn Negative (Negative) Urine Cocaine Screen Negative (Negative) U Cannabinoids Screen Negative (Negative) Ethyl Alcohol (<10) mg/dL Influenza A (RT-PCR) Influenza B (RT-PCR) RSV (RT-PCR) SARS-CoV-2 RNA (RT-PCR) 07/25/24 Range/Units 22:30 WBC (4.5-10.0) K/mm3 RBC (4.2-5.4) M/mm3 Hgb (12.0-15.0) g/dL Hct (37.0-47.0) % MCV (80-100) fl MCH (26-34) pg MCHC (32-36) g/dl RDW (11.5-14.5) % Plt Count (150-375) k/mm3 MPV (7.4-10.4) fl Immature Gran % (Auto) (0-0.5) % Neut % (Auto) (45.5-73.1) % Lymph % (Auto) (18.3-44.2) % [place] % (Auto) (2.6-8.5) % Eos % (Auto) (0-4.4) % Baso % (Auto) (0.2-1.2) % Lymph # (Auto) (0.9-3.2) K/mm3 [place] # (Auto) (0.1-0.6) K/mm3 Eos # (Auto) (0-0.3) K/mm3 Baso # (Auto) (0.0-0.1) K/mm3 Abs Immat Gran (auto) (0.00-0.031) K/mm3 Absolute Neuts (auto) (1.3-6.7) K/mm3 Absolute Nucleated RBC (0.0-0.012) K/mm3 Nucleated RBC % (0.0-0.2) % PT (11.1-14.7) Seconds INR APTT (22.3-36.8) Seconds Methemoglobin Sodium (137-145) mmol/L Potassium (3.4-5.0) mmol/L Chloride (98-107) mmol/L Carbon Dioxide (22-30) mmol/L Anion Gap (4-12) mmol/L BUN (7-17) mg/dL Creatinine (0.7-1.0) mg/dL Estim Creat Clear Calc Estimated GFR (59 - ) Glucose (65-110) mg/dL POC Capillary Glucose (65-105) mg/dl Lactic Acid (0.7-2.0) mmol/L Calcium (8.4-10.2) mg/dL Total Bilirubin (0.2-1.3) mg/dL AST (14-36) U/L ALT (6-35) U/L Alkaline Phosphatase (38-126) U/L Total Protein (6.3-8.2) g/dL Albumin (3.5-5.1) g/dL Procalcitonin ng/mL Urine Color (Yellow) Urine Appearance (Clear) Urine pH (5.0-9.0) Ur Specific [place] (1.001-1.035) Urine Protein (Negative) mg/dL Urine Glucose (UA) (Negative) mg/dL Urine Ketones (Negative) mg/dL Ur Blood (Man) (Negative) Urine Nitrate (Negative) Urine Bilirubin (Negative) Urine Urobilinogen (<2.0) mg/dL Add Ur Microanalysis Leukocyte Esterase Rfl (Negative) KAL/UL Urine RBC (0-2) /hpf Urine WBC (0-3) /hpf Urine WBC Clumps (None) /HPF Ur Squamous Epith Cells (Few) /hpf Urine Bacteria /hpf Urine Casts Hyaline Casts (None) /lpf Urine Opiates Screen (Negative) Urine Methadone Screen (Negative) Ur Barbiturates Screen (Negative) Ur Phencyclidine Scrn (Negative) Ur Amphetamine Screen (Negative) U Benzodiazepines Scrn (Negative) Urine Cocaine Screen (Negative) U Cannabinoids Screen (Negative) Ethyl Alcohol (<10) mg/dL Influenza A (RT-PCR) Pending Influenza B (RT-PCR) Pending RSV (RT-PCR) Pending SARS-CoV-2 RNA (RT-PCR) Pending ABG Data ABG results: 07/25/24 21:27 Puncture Site Right radial ABG pH 7.354 ABG pCO2 47.0 H ABG pO2 64.7 L ABG PO2/FiO2 Ratio 0.65 ABG HCO3 25.6 ABG O2 Saturation 91.7 L ABG Base Excess -0.4 A-a Gradient 601.3 O2 Delivery Device Non-rebreather mask O2 Liters/Min 15.0 FiO2 100 Imaging Data Radiologist's impression: ITS Impressions Head CT 07/25/24 21:08 Impression: No large acute intracranial hemorrhage or suspicious mass effect. Chest X-Ray 07/25/24 21:26 IMPRESSION: Left upper lobe infiltrate ECG Data EKG #1: ECG completion date: 07/25/24 ECG completion time: 22:10 EKG Interpretation: normal rate (73), sinus rhythm, no ectopy, non- specific ST changes, normal QRS, normal QT and NL axis Critical Care Time Critical Care Time Critical Care Time: Yes Total Critical Care Time: 45 Discharge Plan Discharge Clinical Impression: Pneumonia, Altered mental status, Hypoglycemia, Acute UTI Patient Disposition: Still a Patient Condition: Critical Patient Language: Kenyan Prescriptions: No Action gabapentin 300 mg capsule 300 mg PO TID albuterol sulfate 90 mcg/actuation HFA aerosol inhaler 2 inh INHALATION PRN PRN (Reason: SOB) diltiazem HCl [DILT-XR] 120 mg capsule,ext.rel 24h degradable 120 mg PO DAILY insulin aspart U-100 100 unit/mL (3 mL) insulin pen 1 sliding scale dose SUBCUT TIDWMEAL polyethylene glycol 3350 [Miralax] 17 gram Powder In Packet 17 g PO QAM Qty: 30 0RF sotalol 80 mg Tablet 80 mg PO Q12HR Qty: 60 1RF Eliquis 5 mg Tablet 5 mg PO Q12HR Qty: 60 1RF insulin glargine [Lantus Solostar U-100 Insulin] 100 unit/mL (3 mL) insulin pen 25 unit SUBCUT ACHS Qty: 15 0RF doxycycline hyclate 100 mg capsule 100 mg PO BID 7 Days Qty: 14 0RF cyanocobalamin-methylcobalamin 600-600 mcg tablet, sublingual 1 tablet sublingual DAILY 30 Days Qty: 30 1RF Follow-up/Referrals: Ernesto Alfaro MD [Primary Care Provider] -
[2024-07-25 20:57] LABS: Basophils Percent Auto 0.2 % (0.2-1.2); Eosinophils Percent Auto 0.1 % (0-4.4); Hematocrit 35.5 % (37.0-47.0); Hemoglobin 10.8 g/dL (12.0-15.0); Immature Granulocyte Absolute 0.04 K/mm3 (0.00-0.031); Immature Granulocyte Percent A 0.3 % (0-0.5); Lymphocytes Absolute Auto 0.55 K/mm3 (0.9-3.2); Lymphocytes Percent Auto 4.5 % (18.3-44.2); Mean Corpuscular HGB Conc 30.4 g/dl (32-36); Mean Corpuscular Hemoglobin 31.5 pg (26-34); Mean Corpuscular Volume 103.5 fl (80-100); Mean Platelet Volume 10.5 fl (7.4-10.4); Monocytes Absolute Auto 0.5 K/mm3 (0.1-0.6); Monocytes Percent Auto 3.9 % (2.6-8.5); Neutrophils Absolute Auto 11.1 K/mm3 (1.3-6.7); Platelet Count Result 216 k/mm3 (150-375); Red Blood Count 3.43 M/mm3 (4.2-5.4); Red Cell Distribution Width 15.3 % (11.5-14.5); White Blood Count 12.2 K/mm3 (4.5-10.0)
[2024-07-25 21:05] LABS: Alanine Aminotransferase 21 U/L (6-35); Albumin Level 3.1 g/dL (3.5-5.1); Alkaline Phosphatase 98 U/L (38-126); Anion Gap 5 mmol/L (4-12); Aspartate Amino Transferase 27 U/L (14-36); Bilirubin,Total 0.4 mg/dL (0.2-1.3); Blood Urea Nitrogen 17 mg/dL (7-17); Calcium 8.3 mg/dL (8.4-10.2); Carbon Dioxide 30 mmol/L (22-30); Chloride 100 mmol/L (98-107); Estimated Glomerular Filt Rate > 60; Glucose 286 mg/dL (65-110); Potassium 4.7 mmol/L (3.4-5.0); Sodium 135 mmol/L (137-145)
[2024-07-25 21:06] LABS: Lactic Acid Reflex 1.2 mmol/L (0.7-2.0)
[2024-07-25 21:11] LABS: Add Urine Microscopic? YES; Appearance Urine Cloudy (Clear); Bacteria Urine 4+ /hpf; Bilirubin Urine Negative (Negative); Blood Urine 2+ (Negative); Color Urine Yellow (Yellow); Glucose Urine UA 1+ mg/dL (Negative); Hyaline Casts Urine Present /lpf; Ketones Urine Negative (Negative); Leukocyte Esterase Ur 3+ LEU/UL (Negative); Need Manual Microscopic Reviewed; Nitrate Urine Positive (Negative); Protein Urine 1+ mg/dL (Negative); RBC Urine 0-2 /hpf (0-2); Specific Grav Ur 1.016 (1.001-1.035); Squamous Epithelial Cell Urine None Seen /hpf (Few); Urobilinogen Urine 0.2 mg/dL (<2.0); WBC Clumps Urine Present /HPF; WBC Urine >100 /hpf (0-3)
[2024-07-25 21:14] LABS: Glucose Point of Care 124 mg/dl (65-105)
[2024-07-25 21:14] LABS: Glucose Point of Care 121 mg/dl (65-105)
[2024-07-25 21:14] LABS: Glucose Point of Care < 20 mg/dl (65-105)
--- NOTE | 2024-07-25 21:36 | PC.NURSE ---
2004 patient placed on 15L NRB due to being 80% on 2L EDP at bedside 2006 1mg IM glucagon given VORB Dr. Gonzalez 2014 patient BS reading <10 2020 central line placed by Dr. Gonzalez 3 Lumen 16g R groin Per EDP, brown clave does not flush or pull blood and is to not be used DO NOT USE sticker placed on brown clave 2030 D50 25g IV dextrose given per VORB EDP 2034 temp teran placed 16f, patent, isaac care provided 2040 pt BS reading 121 0 pt BS reading 124 patient still unresponsive at this time
[2024-07-25 21:37] LABS: Alveolar/Arterial O2 Gradient 601.3 mmHg; Base Excess ABG -0.4 mEq/l (+/-2.0); Fractional Inspired Oxygen 100 %; HCO3 ABG 25.6 mEq/l (22.0-26.0); Oxygen Saturation ABG 91.7 % (95.0-100.0); PO2 ABG 64.7 mmHg (80.0-100.0); PO2 FiO2 Ratio Arterial Blood 0.65 %; pH ABG 7.354 (7.350-7.450)
[2024-07-25 21:40] LABS: Device NON-REBREATHER MASK; Modified Allen's Test Pass; Site Drawn RIGHT RADIAL
[2024-07-25 21:43] LABS: Ethanol < 10 mg/dL (<10)
--- NOTE | 2024-07-25 21:44 | PC.NURSE ---
Per EDP Dr. Gonzalez, brown clave of central line does not pull or flush and is to not be used. DO NOT USE sticker placed across brown clave.
[2024-07-25 21:50] LABS: Barbiturate Screen Urine Negative (Negative); Benzodiazepines Screen Urine Negative (Negative)
[2024-07-25 21:53] LABS: Amphetamine Screen Urine Negative (Negative); Cannabinoid Screen Urine Negative (Negative); Cocaine Screen Urine Negative (Negative); Methadone Screen Urine Negative (Negative); Opiate Screen Urine Negative (Negative); Phencyclidine Screen Urine Negative (Negative)
[2024-07-25 22:00] LABS: Procalcitonin 0.1 ng/mL
--- NOTE | 2024-07-25 22:00 | PC.NURSE ---
Per PATTI Gonzalez, central line may be used as a last resort for blood cultures.
--- NOTE | 2024-07-25 22:05 | ECG_ITS ---
Test Date: 2024-07-25 22:10:48 Measurements Intervals [place] Rate: 73 P: 59 WI: 151 QRS: 16 QRSD: 78 T: 28 QT: 393 QTc: 434 Interpretive Statements SINUS RHYTHM WITH SINUS ARRHYTHMIA LOW QRS VOLTAGE [QRS DEFLECTION < 0.5/1.0 mV IN LIMB/CHEST LEADS] Compared to ECG 07/08/2024 09:11:35 Atrial fibrillation no longer present Electronically Signed On 07-26-2024 10:08:06 CDT by Marques Gonzalez M.D.
[2024-07-25] MEDS: NALOXONE HCL 0.4 MG/ML VIAL (22:17)
[2024-07-25] MEDS: SUCCINYLCHOLINE CHLORIDE 20 MG/ML 10 ML VIAL 100 MG IV PUSH (22:22)
[2024-07-25] MEDS: ETOMIDATE 20 MG/10 ML AMPUL 30 MG IV PUSH (22:22)
--- NOTE | 2024-07-25 22:23 | PC.NURSE ---
2215 rubio chakraborty at bedside 2217 narcan 0.4mg 2222 etomidate 30mg 2223 succinylcholine 100mg 2224 7.0 ett 23 @ lip with color change and bilateral breathe sounds performed by rubio chakraborty 2226 16f [place] sump og 60 @ lip
[2024-07-25] MEDS: fentaNYL CITRATE INJ (*CRX) 100 MCG/2 ML VIAL 25 MCG IV PUSH (22:45)
[2024-07-25] MEDS: MIDAZOLAM HCL (*CRX) 2 MG/2 ML VIAL IV PUSH (22:45)
[2024-07-25] MEDS: FENTANYL 2,500MCG/NS250ML(*CRX 2,500 MCG/250 ML BAG IV CONT (22:49)
[2024-07-25] MEDS: MIDAZOLAM 100MG/NS 100ML(*CRX) 100 MG/100 ML BAG IV CONT (22:54)
[2024-07-25] MEDS: Please enter patient height and weight for medication dosing 1 EACH XX (23:02)
[2024-07-25] MEDS: SODIUM CHLORIDE 0.9% IV 1,000 ML 999 ML IV CONT ×2 (23:07→23:09)
[2024-07-25 23:11] LABS: Influenza A QL RT-PCR Negative (Negative); Influenza B QL RT-PCR Negative (Negative); RSV RNA, RT-PCR Negative (Negative); SARS-CoV-2 RNA PCR Negative (Negative)
[2024-07-25] MEDS: MEROPENEM 1 GM/NS 100 ML 1 GM/100 ML BAG IVPB (23:30)
[2024-07-26] VITALS (45 sets, daily range): BP systolic 99–151; BP diastolic 37–85; PULSE 57–160; RESP 17–32; TEMP 37–37.8; O2SAT 91–98; BMI 30.9
[2024-07-26 00:21] LABS: Alveolar/Arterial O2 Gradient 237.1 mmHg; Fractional Inspired Oxygen 50 %; HCO3 ABG 24.2 mEq/l (22.0-26.0); Oxygen Saturation ABG 94.3 % (95.0-100.0); PCO2 ABG 41.9 mmHg (35.0-45.0); PO2 ABG 72.3 mmHg (80.0-100.0); PO2 FiO2 Ratio Arterial Blood 1.45 %; pH ABG 7.379 (7.350-7.450)
[2024-07-26 00:22] LABS: Device VENTILATOR; Modified Allen's Test Pass; Site Drawn RIGHT RADIAL
[2024-07-26 00:23] LABS: Arterial Blood Gas PEEP 5 cmH2O; Arterial Blood Gas Vent Mode CMV; Arterial Blood Gas Ventilator rate 18 /MIN
[2024-07-26 00:24] LABS: Arterial Blood Gas Tidal Volume 340 ml
--- NOTE | 2024-07-26 00:51 | PC.NURSE ---
This patient, Edelmira Cardenas, was admitted to Intensive Care Unit-9. Patient/family oriented to hospital policies and general routines including ID bracelet, bed and alarms, visiting hours, pain management, procedures, bathroom and other care routines, personal items, smoking policy, room service/diet, and visiting hours. Information on how to activate the Rapid Response Team has been discussed. Patient/Family are encouraged to report perceived risks to care and to ask questions if they do not understand what they are told or what they should do.
[2024-07-26] MEDS: DEXTROSE 50% 25 GM/50 ML SYRINGE IV PUSH (01:05)
[2024-07-26] MEDS: DEXTROSE 10% 1,000 ML 70 ML IV CONT (01:05)
--- NOTE | 2024-07-26 01:16 | P.HP_ITS ---
H&P: HPI History of Present Illness Date/Time: 07/26/24 01:16 Chief Complaint: Unresponsive Narrative: 74-year-old female with a past medical history insulin-dependent diabetes mellitus, essential hypertension, paroxysmal atrial fibrillation, hyperlipidemia chronic inhaled nicotine use, COPD with history of prior respiratory failure, pulmonary hypertension and chronic anemia among other chronic comorbidities who presented to the ER after being found unresponsive at home. The patient's daughter reports that see you last solid patient while before 16:30 on the 6. Daughter reported that she left to go to a ball game when she came home her mother was asleep. Daughter than got up and went to work the next day and when she came home from work around 630 p.m. she found the patient unresponsive and called EMS. EMS reported that the patient's initial blood sugar on arrival to the scene was 23 with a repeat reading of 36. Patient was given 1 dose of glucose on with no improvement in glucose in the patient was brought into the ER for evaluation. Patient was maintaining O2 sats on room air with the sats in the low 90s. The patient was unarousable and snoring in triage in repeat glucose at that time was 11. Patient had a right femoral central line placed AMS could not obtain IV access and patient received an amp of D50 with repeat glucose on BMP of 286. However patient did trend back down within 3 hours down to 49. Patient did spike a fever after arrival to the ER and UA was suggestive of UTI. The patient remained obtunded despite improved blood sugars and she had evidence of bruising to the tongue suggesting recent seizure. The patient was subsequently intubated for airway protection. Patient also was having hypoxia on 15 L non-rebreather with sats down to 79% ABG 1 hour after intubation with an settings AC/CMP tidal volume of 340 peep of 5 rate of 18 and 50% FiO2 demonstrated pH of 7.37 pCO2 of 41.9 and PO2 of 72. Patient's urine was suggestive of UTI patient was started on meropenem. Blood cultures were obtained and are pending. CT of the head demonstrated no acute intercranial process Review of Systems 2 Review of Systems: ROS unobtainable: Yes unobtainable due to endotracheal tube PMFSH Past Medical History Medical History Paroxysmal atrial fibrillation Chronic anemia MRSA infection MRSA infection of the right hand in October 2013. 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 Amputation of digit of left hand Secondary to osteomyelitis. Status post excision of lipoma History of carpal tunnel release History of section History of hysterectomy History of appendectomy History of exploratory laparotomy History of open reduction and internal fixation (ORIF) procedure (03/2021) Repair of right ankle fracture per Dr. Cristo Lewis at [facility]. Family History Family History Father Diabetes mellitus Family history of malignant neoplasm Colon cancer Mother Family history of malignant neoplasm Social History Social History Social History: Surrogate medical decision maker: Kavitha Sterling, daughter. Code status: Full code. Smoking packs per day: 1.5 Smoking cigarettes per day: 30.0 Years smoked: 30 Smoking pack-years: 45.00 Smoking status: Current every day smoker Tobacco type: cigarettes Second hand tobacco smoke exposure: Yes Additional smoking assessment comments: Up to 2 PPD at one point (for 50 years, 100 pack years) . Still vapes. Alcohol intake: never Substance use: never Substance use type: does not use Do You Feel Safe in your Home?: Yes Lack of Transportation: No Lack of Food: Never True Current Housing: I Have Housing Concerned About Future Housing: No Difficulty Paying Gas/Electric Bills: No Difficulty Paying for Meds: No Currently Unemployed: No Education: Decline to Answer Difficulty w/ Childcare or Family Care: No Living arrangements: with family Additional living arrangements comments: The patient lives with her daughter Kavitha in [place]. Spiritual care concerns: No Meds Home Medications and Allergies Home Medications ?Medication ?Instructions ?Recorded ?Confirmed ?Type albuterol sulfate 90 mcg/actuation 2 inh inhalation PRN PRN SOB 07/14/20 07/26/24 History aerosol inhaler gabapentin 300 mg capsule 300 mg PO TID 07/14/20 07/26/24 History diltiazem HCl 120 mg 120 mg PO DAILY 12/07/21 07/26/24 History capsule,extended release 24 hr, controlled (DILT-XR) insulin aspart U-100 100 unit/mL 1 sliding scale dose subcut 05/01/24 07/26/24 History (3 mL) subcutaneous pen TIDWMEAL apixaban 5 mg tablet (Eliquis) 5 mg PO Q12HR #60 tabs 05/09/24 07/26/24 Rx insulin glargine 100 unit/mL (3 25 unit (0.25 mL) subcut ACHS #15 05/09/24 07/26/24 Rx mL) subcutaneous pen (Lantus mL Solostar U-100 Insulin) polyethylene glycol 3350 17 gram 17 g PO QAM #30 ea 05/09/24 07/26/24 Rx oral powder packet (Miralax) sotalol 80 mg tablet 80 mg PO Q12HR #60 tabs 05/09/24 07/26/24 Rx cyanocobalamin-methylcobalamin 600 1 tablet sublingual DAILY 30 days 07/09/24 07/26/24 Rx mcg-600 mcg sublingual tablet #30 tabs budesonide-formoterol HFA 160 2 puff inhalation BID 07/26/24 07/26/24 History mcg-4.5 mcg/actuation aerosol inhaler (Breyna) duloxetine 60 mg capsule,delayed 90 mg PO DAILY 07/26/24 07/26/24 History release oxycodone 10 mg tablet 10 mg PO Q4H PRN pain 07/26/24 07/26/24 History Allergies Allergy/AdvReac Type Severity Reaction Status Date / Time eucalyptus Allergy Intermediate BLISTERS Verified 07/26/24 01:28 quinine Allergy Intermediate HIVES Verified 07/26/24 01:28 cephalexin Allergy Unknown Itching Verified 07/26/24 01:28 levofloxacin Allergy Unknown Unknown Verified 07/26/24 01:28 menthol Allergy Unknown BLISTERS Verified 07/26/24 01:28 Quinolones Allergy Unknown Verified 07/26/24 01:28 aspirin AdvReac Unknown Vomiting Verified 07/26/24 01:28 Vital Signs Vital Signs - 24 hr 07/25/24 19:57 07/25/24 20:05 07/25/24 20:30 Temperature 96.6 F L Pulse Rate 61 69 Respiratory Rate 23 H Blood Pressure 105/77 Pulse Oximetry 80 L 97 Oxygen Delivery Nasal Cannula Non-Rebreather Mask Oxygen Flow Rate 6 15 Fraction of Inspired Oxygen 07/25/24 21:19 07/25/24 21:30 07/25/24 21:33 Temperature 99.6 F 99.7 F H Pulse Rate 71 68 Respiratory Rate 20 21 H Blood Pressure 112/91 H Pulse Oximetry 100 99 100 Oxygen Delivery Non-Rebreather Mask Oxygen Flow Rate 15 Fraction of Inspired Oxygen 07/25/24 21:45 07/25/24 21:48 07/25/24 22:00 Temperature 99.9 F H 99.9 F H 100.1 F H Pulse Rate 70 76 77 Respiratory Rate 22 H 21 H 20 Blood Pressure 106/92 H Pulse Oximetry 98 100 97 Oxygen Delivery Oxygen Flow Rate Fraction of Inspired Oxygen 07/25/24 22:01 07/25/24 22:15 07/25/24 22:18 Temperature 100.1 F H 100.2 F H 99.2 F Pulse Rate 80 80 76 Respiratory Rate 21 H 22 H 20 Blood Pressure 116/103 H 133/95 H Pulse Oximetry 98 99 96 Oxygen Delivery Oxygen Flow Rate Fraction of Inspired Oxygen 07/25/24 22:18 07/25/24 22:25 07/25/24 22:25 Temperature 100.3 F H Pulse Rate 85 112 H 112 H Respiratory Rate 21 H 26 H Blood Pressure 133/95 H Pulse Oximetry 94 95 98 Oxygen Delivery Mechanical Ventilation Mechanical Ventilation Oxygen Flow Rate Fraction of Inspired Oxygen 80 80 07/25/24 22:30 07/25/24 22:31 07/25/24 22:33 Temperature 100.2 F H 100.2 F H 100.2 F H Pulse Rate 82 81 85 Respiratory Rate 14 17 17 Blood Pressure 160/68 H 160/68 H Pulse Oximetry 100 100 95 Oxygen Delivery Oxygen Flow Rate Fraction of Inspired Oxygen 07/25/24 22:45 07/25/24 22:46 07/25/24 22:49 Temperature 100.4 F H 100.5 F H Pulse Rate 81 79 84 Respiratory Rate 18 20 20 Blood Pressure 143/43 H Pulse Oximetry Oxygen Delivery Oxygen Flow Rate Fraction of Inspired Oxygen 07/25/24 22:54 07/25/24 23:00 07/25/24 23:01 Temperature 100.5 F H 100.6 F H Pulse Rate 84 80 80 Respiratory Rate 23 H 22 H 26 H Blood Pressure 111/91 H Pulse Oximetry 100 99 Oxygen Delivery Oxygen Flow Rate Fraction of Inspired Oxygen 07/25/24 23:15 07/25/24 23:16 07/25/24 23:17 Temperature 100.6 F H 100.6 F H Pulse Rate 83 84 83 Respiratory Rate 28 H 28 H 24 H Blood Pressure 150/104 H Pulse Oximetry 97 97 Oxygen Delivery Oxygen Flow Rate Fraction of Inspired Oxygen 07/25/24 23:30 07/25/24 23:32 07/25/24 23:43 Temperature 100.5 F H 100.5 F H 100.6 F H Pulse Rate 82 82 76 Respiratory Rate 25 H 24 H 23 H Blood Pressure 136/62 124/80 Pulse Oximetry 79 L 97 96 Oxygen Delivery Oxygen Flow Rate Fraction of Inspired Oxygen 07/26/24 00:30 Temperature Pulse Rate 79 Respiratory Rate 21 H Blood Pressure Pulse Oximetry Oxygen Delivery Oxygen Flow Rate Fraction of Inspired Oxygen Exam 2 Narrative: Weight 76.6 kg BMI 30.9 Const: Other: Acutely ill-appearing, intubated and sedated HENMT: Other: Mucous membranes are dry, bruising to the right tongue, head is normocephalic atraumatic, pupils are sluggishly reactive but equal, ET tube present, OG tube in place Eyes: Other: Pupils are equal and sluggishly reactive, bilateral cataracts noted, mild conjunctival pallor, no scleral icterus Neck: Other: No JVD, no lymphadenopathy Resp: Other: Coarse crackles at the bases bilaterally, over breathing the vent Cardio: Other: Rate, regular 2+ bilateral radial pulses, difficult to palpate pedal pulses pedal pulses were confirmed by Doppler GI: Other: Soft, nontender, nondistended, normoactive bowel sounds : Other: Triple-lumen catheter in the right groin, Osullivan catheter in place with a small amount of dark yellow urine Skin: Other: Generalized pallor, mottled lower extremities up to the knee, chronic scarring in skin changes to bilateral ankles and feet right greater than left Neuro: Other: Pupils are equal and sluggishly reactive, patient is intubated and sedated, patient withdrawals to painful stimuli Extrem: Other: Chronic edema of bilateral lower extremities, chronic postoperative changes noted to the right foot and ankle, no clubbing, no cyanosis, cap refill 6-8 seconds, extremities cold touch Psych: Other: Unable to assess due to sedation H&P: Results Labs Labs: Laboratory Tests 07/25/24 20:46 07/25/24 20:46 07/25/24 07/25/24 07/25/24 20:15 20:42 20:46 WBC 12.2 H RBC 3.43 L Hgb 10.8 L Hct 35.5 L MCV 103.5 H MCH 31.5 MCHC 30.4 L RDW 15.3 H Plt Count 216 MPV 10.5 H Immature Gran % (Auto) 0.3 Neut % (Auto) 91.0 H Lymph % (Auto) 4.5 L [place] % (Auto) 3.9 Eos % (Auto) 0.1 Baso % (Auto) 0.2 Lymph # (Auto) 0.55 L [place] # (Auto) 0.5 Eos # (Auto) 0.0 Baso # (Auto) 0.0 Abs Immat Gran (auto) 0.04 H Absolute Neuts (auto) 11.1 H Absolute Nucleated RBC 0.000 Nucleated RBC % 0.0 PT 14.0 INR 1.0 APTT 37.0 H Puncture Site ABG pH ABG pCO2 ABG pO2 ABG PO2/FiO2 Ratio ABG HCO3 ABG O2 Saturation ABG O2 Content ABG Base Excess A-a Gradient Oxyhemoglobin Carboxyhemoglobin Methemoglobin Reduced Hemoglobin Total Hemoglobin O2 Delivery Device O2 Liters/Min Minute Volume Vent Rate Vent Mode FiO2 Tidal Volume PEEP Peak Inspir Pressure Pressure Support Sodium 135 L Potassium 4.7 Chloride 100 Carbon Dioxide 30 Anion Gap 5 BUN 17 Creatinine 0.78 Estim Creat Clear Calc Not Reportable Estimated GFR > 60 Glucose 286 H POC Capillary Glucose < 20 L* 121 H Lactic Acid 1.2 Calcium 8.3 L Total Bilirubin 0.4 AST 27 ALT 21 Alkaline Phosphatase 98 Total Protein 7.0 Albumin 3.1 L Procalcitonin 0.1 Urine Color Yellow Urine Appearance Cloudy H Urine pH 5.0 Ur Specific [place] 1.016 Urine Protein 1+ H Urine Glucose (UA) 1+ H Urine Ketones Negative Ur Blood (Man) 2+ H Urine Nitrate Positive H Urine Bilirubin Negative Urine Urobilinogen 0.2 Add Ur Microanalysis Reviewed Leukocyte Esterase Rfl 3+ H Urine RBC 0-2 Urine WBC >100 H Urine WBC Clumps Present H Ur Squamous Epith Cells None seen Urine Bacteria 4+ H Urine Casts 3-5 Hyaline Casts Present Urine Opiates Screen Urine Methadone Screen Ur Barbiturates Screen Ur Phencyclidine Scrn Ur Amphetamine Screen U Benzodiazepines Scrn Urine Cocaine Screen U Cannabinoids Screen Ethyl Alcohol < 10 Influenza A (RT-PCR) Influenza B (RT-PCR) RSV (RT-PCR) SARS-CoV-2 RNA (RT-PCR) 07/25/24 07/25/24 07/25/24 21:10 21:13 21:27 WBC RBC Hgb Hct MCV MCH MCHC RDW Plt Count MPV Immature Gran % (Auto) Neut % (Auto) Lymph % (Auto) [place] % (Auto) Eos % (Auto) Baso % (Auto) Lymph # (Auto) [place] # (Auto) Eos # (Auto) Baso # (Auto) Abs Immat Gran (auto) Absolute Neuts (auto) Absolute Nucleated RBC Nucleated RBC % PT INR APTT Puncture Site Right radial ABG pH 7.354 ABG pCO2 47.0 H ABG pO2 64.7 L ABG PO2/FiO2 Ratio 0.65 ABG HCO3 25.6 ABG O2 Saturation 91.7 L ABG O2 Content Pending ABG Base Excess -0.4 A-a Gradient 601.3 Oxyhemoglobin Pending Carboxyhemoglobin Pending Methemoglobin Pending Reduced Hemoglobin Pending Total Hemoglobin Pending O2 Delivery Device Non-rebreather mask O2 Liters/Min 15.0 Minute Volume Vent Rate Vent Mode FiO2 100 Tidal Volume PEEP Peak Inspir Pressure Pressure Support Sodium Potassium Chloride Carbon Dioxide Anion Gap BUN Creatinine Estim Creat Clear Calc Estimated GFR Glucose POC Capillary Glucose 124 H Lactic Acid Calcium Total Bilirubin AST ALT Alkaline Phosphatase Total Protein Albumin Procalcitonin Urine Color Urine Appearance Urine pH Ur Specific [place] Urine Protein Urine Glucose (UA) Urine Ketones Ur Blood (Man) Urine Nitrate Urine Bilirubin Urine Urobilinogen Add Ur Microanalysis Leukocyte Esterase Rfl Urine RBC Urine WBC Urine WBC Clumps Ur Squamous Epith Cells Urine Bacteria Urine Casts Hyaline Casts Urine Opiates Screen Negative Urine Methadone Screen Negative Ur Barbiturates Screen Negative Ur Phencyclidine Scrn Negative Ur Amphetamine Screen Negative U Benzodiazepines Scrn Negative Urine Cocaine Screen Negative U Cannabinoids Screen Negative Ethyl Alcohol Influenza A (RT-PCR) Influenza B (RT-PCR) RSV (RT-PCR) SARS-CoV-2 RNA (RT-PCR) 07/25/24 07/25/24 07/26/24 22:30 23:16 00:06 WBC RBC Hgb Hct MCV MCH MCHC RDW Plt Count MPV Immature Gran % (Auto) Neut % (Auto) Lymph % (Auto) [place] % (Auto) Eos % (Auto) Baso % (Auto) Lymph # (Auto) [place] # (Auto) Eos # (Auto) Baso # (Auto) Abs Immat Gran (auto) Absolute Neuts (auto) Absolute Nucleated RBC Nucleated RBC % PT INR APTT Puncture Site Right radial ABG pH 7.379 ABG pCO2 41.9 ABG pO2 72.3 L ABG PO2/FiO2 Ratio 1.45 ABG HCO3 24.2 ABG O2 Saturation 94.3 L ABG O2 Content Pending ABG Base Excess -1.0 A-a Gradient 237.1 Oxyhemoglobin Pending Carboxyhemoglobin Pending Methemoglobin Pending Reduced Hemoglobin Pending Total Hemoglobin Pending O2 Delivery Device Ventilator O2 Liters/Min Not Reportable Minute Volume Not Reportable Vent Rate 18 Vent Mode Cmv FiO2 50 Tidal Volume 340 PEEP 5 Peak Inspir Pressure Not Reportable Pressure Support Not Reportable Sodium Potassium Chloride Carbon Dioxide Anion Gap BUN Creatinine Estim Creat Clear Calc Estimated GFR Glucose POC Capillary Glucose 87 Lactic Acid Calcium Total Bilirubin AST ALT Alkaline Phosphatase Total Protein Albumin Procalcitonin Urine Color Urine Appearance Urine pH Ur Specific [place] Urine Protein Urine Glucose (UA) Urine Ketones Ur Blood (Man) Urine Nitrate Urine Bilirubin Urine Urobilinogen Add Ur Microanalysis Leukocyte Esterase Rfl Urine RBC Urine WBC Urine WBC Clumps Ur Squamous Epith Cells Urine Bacteria Urine Casts Hyaline Casts Urine Opiates Screen Urine Methadone Screen Ur Barbiturates Screen Ur Phencyclidine Scrn Ur Amphetamine Screen U Benzodiazepines Scrn Urine Cocaine Screen U Cannabinoids Screen Ethyl Alcohol Influenza A (RT-PCR) Negative Influenza B (RT-PCR) Negative RSV (RT-PCR) Negative SARS-CoV-2 RNA (RT-PCR) Negative Impressions Head CT 07/25/24 21:08 Impression: No large acute intracranial hemorrhage or suspicious mass effect. Chest X-Ray 07/25/24 21:26 IMPRESSION: Left upper lobe infiltrate Abdomen X-Ray 07/25/24 22:47 IMPRESSION: Endotracheal tube in good radiographic position. Orogastric tube in good position, and ready for immediate use. Redemonstration of a left upper lobe infiltrate, now with mild to moderate pulmonary vascular congestion Chest X-Ray 07/25/24 22:47 IMPRESSION: Endotracheal tube in good radiographic position. Orogastric tube in good position, and ready for immediate use. Redemonstration of a left upper lobe infiltrate, now with mild to moderate pulmonary vascular congestion EKG: Sinus rhythm with sinus arrhythmia rate of 73 QTC of 434 low-voltage QRS All imaging and EKGs personally reviewed and interpreted. And unless stated otherwise agree with radiologic and cardiology interpretation. Assessment and Plan Assessment and plan (1) Type 2 diabetes mellitus with hypoglycemia and coma, with long-term current use of insulin: Code(s): E11.641 - Type 2 diabetes mellitus with hypoglycemia with coma; Z79.4 - shelter (current) use of insulin Status: Acute (2) Acute respiratory failure with hypoxia: Code(s): J96.01 - Acute respiratory failure with hypoxia Status: Acute (3) Acute UTI: Code(s): N39.0 - Urinary tract infection, site not specified Status: Acute (4) Altered mental status: Qualifiers: Altered mental status type: coma Coma depth: Garry coma 3-8 Coma timing: at hospital admission Qualified Code(s): R40.2433 - [place] coma scale score 3-8, at hospital admission Code(s): R41.82 - Altered mental status, unspecified Status: Acute (5) Pleural effusion: Code(s): J90 - Pleural effusion, not elsewhere classified Status: Acute Plan Severe hypoglycemia due to insulin use and likely associated decreased oral intake. Patient had profound persistent hypoglycemia despite glucose administration in had recurrence of hypoglycemia. Subsequently D5 W was started at 75 mL an hour. Will continue to check hourly Accu-Cheks until stabilized. The patient does have a classical coma Scale of 6 likely resultant encephalopathy from suspected hypoglycemic seizure given injury to the patient's tongue. There is likely some postictal state and some residual encephalopathy from hypoglycemia. CT of the head did not demonstrated any acute intercranial process. The patient has become a little bit more responsive and subsequently has required some sedation with fentanyl and Versed. The patient did have associated acute hypoxic respiratory failure due to the above factors requiring intubation. Initial ventilator settings were AC/CMV tidal volume 340 rate of 18 peep of 5 repeat ABG did demonstrate mild respiratory acidosis with hypercapnia. Subsequently tidal volume was increased to 360. Daily chest x-ray has been ordered. When the patient's history of COPD and in the setting of acquired intubation will place patient on scheduled nebulizer treatment. Patient has UA suggestive of UTI and had a low-grade fever with associated tachypnea and leukocytosis patient does fit sepsis criteria without evidence of septic shock. Patient was started on broad-spectrum antibiotics with meropenem. Blood cultures and urine cultures have been obtained. Patient's CT of the chest also demonstrated findings with possible underlying pneumonia given development of hypoxic respiratory failure and suspected seizure pneumonia/aspiration pneumonitis cannot be ruled out. Will broaden antibiotic coverage with azithromycin and vancomycin. Will obtain sputum culture. Will repeat CBC and electrolyte panel. Patient does have pleural effusion moderate in nature likely associated with pneumonia. CHF less likely given the patient had echocardiogram with normal systolic function and normal diastolic function in April of this year. She did have some mild pulmonary hypertension. Given the patient's underlying history of COPD in the setting of underlying pneumonia. Quality VTE Prophylaxis VTE prophylaxis: pharmacologic ordered (Will continue home Eliquis through OG) Hospitalist MIPS Advance Care Plan I have confirmed that the patient's Advanced Care Plan is present, code status is documented, or surrogate decision maker is listed in patient medical record.: Yes Medication Reconciliation I have utilized all available resources to obtain, update and review the patients current medications (includes all prescriptions, OTC, herbals, cannabis, and nutritional supplements).: Yes
[2024-07-26 01:17] LABS: Glucose Point of Care 87 mg/dl (65-105)
[2024-07-26 01:41] LABS: Glucose Point of Care 129 mg/dl (65-105)
[2024-07-26 01:41] LABS: Glucose Point of Care 49 mg/dl (65-105)
[2024-07-26] MEDS: SODIUM CHLORIDE 0.9% IV 400 ML 999 ML IV CONT (02:30)
[2024-07-26] MEDS: SODIUM CHLORIDE 0.9% IV 1,000 ML 125 ML IV CONT (02:56)
[2024-07-26 03:13] LABS: Glucose Point of Care 138 mg/dl (65-105)
[2024-07-26 03:46] LABS: MRSA (PCR) NOT DETECTED (NOT DETECTE)
[2024-07-26 05:11] LABS: Glucose Point of Care 153 mg/dl (65-105)
[2024-07-26 05:16] LABS: Base Excess ABG 0.6 mEq/l (+/-2.0); Fractional Inspired Oxygen 50 %; HCO3 ABG 27.8 mEq/l (22.0-26.0); Oxygen Saturation ABG 94.1 % (95.0-100.0); PCO2 ABG 54.5 mmHg (35.0-45.0); PO2 ABG 76.2 mmHg (80.0-100.0); PO2 FiO2 Ratio Arterial Blood 1.52 %; pH ABG 7.325 (7.350-7.450)
[2024-07-26 05:19] LABS: Modified Allen's Test Pass; Site Drawn RIGHT RADIAL
[2024-07-26 05:20] LABS: Device VENTILATOR
[2024-07-26 05:21] LABS: Arterial Blood Gas PEEP 5 cmH2O; Arterial Blood Gas Vent Mode CMV; Arterial Blood Gas Ventilator rate 18 /MIN
[2024-07-26 05:22] LABS: Arterial Blood Gas Tidal Volume 380 ml
[2024-07-26] MEDS: MEROPENEM 1 GM/NS 100 ML 1 GM/100 ML BAG IVPB ×3 (06:19→22:08)
[2024-07-26] MEDS: AZITHROMYCIN 500 MG/NS 250 ML 500 MG/250 ML BAG 250 MG IVPB (06:19)
[2024-07-26] MEDS: APIXABAN 5 MG TABLET FEED TUBE ×2 (08:38→20:29)
[2024-07-26] MEDS: VANCOMYCIN 2,000 MG/NS 500 ML 2,000 MG/500 ML BAG 250 MG IVPB (08:38)
[2024-07-26] MEDS: PANTOPRAZOLE SODIUM IV 40 MG VIAL IV PUSH (08:38)
--- NOTE | 2024-07-26 08:53 | ECG_ITS ---
Test Date: 2024-07-26 08:56:19 Measurements Intervals [place] Rate: 133 P: 0 DC: 0 QRS: 5 QRSD: 76 T: 10 QT: 296 QTc: 442 Interpretive Statements ATRIAL FIBRILLATION WITH RAPID VENTRICULAR RESPONSE LOW QRS VOLTAGE IN PRECORDIAL LEADS [QRS DEFLECTION < 1.0 mV IN CHEST LEADS] Compared to ECG 07/25/2024 22:10:48 Sinus rhythm no longer present Electronically Signed On 07-26-2024 10:10:57 CDT by Marques Gonzalez M.D.
[2024-07-26] MEDS: METOPROLOL TARTRATE INJ 5 MG/5 ML VIAL IV PUSH (08:56)
[2024-07-26] MEDS: IPRATROPIUM BR 0.02% INH SOLN 0.5 MG/2.5 ML VIAL INHALATION (09:00)
[2024-07-26] MEDS: ALBUTEROL SULFATE NEB 2.5 MG/3 ML INH 5 MG INHALATION (09:00)
[2024-07-26 09:15] LABS: Basophils Percent Auto 0.3 % (0.2-1.2); Eosinophils Percent Auto 0.1 % (0-4.4); Hemoglobin 10.9 g/dL (12.0-15.0); Immature Granulocyte Absolute 0.03 K/mm3 (0.00-0.031); Immature Granulocyte Percent A 0.3 % (0-0.5); Lymphocytes Absolute Auto 0.86 K/mm3 (0.9-3.2); Lymphocytes Percent Auto 9.6 % (18.3-44.2); Mean Corpuscular HGB Conc 31.1 g/dl (32-36); Mean Corpuscular Hemoglobin 31.5 pg (26-34); Mean Corpuscular Volume 101.2 fl (80-100); Mean Platelet Volume 10.3 fl (7.4-10.4); Monocytes Absolute Auto 0.7 K/mm3 (0.1-0.6); Monocytes Percent Auto 8.1 % (2.6-8.5); Neutrophils Absolute Auto 7.3 K/mm3 (1.3-6.7); Neutrophils Percent Auto 81.6 % (45.5-73.1); Platelet Count Result 175 k/mm3 (150-375); Red Blood Count 3.46 M/mm3 (4.2-5.4); Red Cell Distribution Width 15.2 % (11.5-14.5); White Blood Count 8.9 K/mm3 (4.5-10.0)
[2024-07-26] MEDS: SOTALOL HCL 80 MG TABLET FEED TUBE ×2 (09:15→20:29)
[2024-07-26 09:20] LABS: Anion Gap 4 mmol/L (4-12); Blood Urea Nitrogen 14 mg/dL (7-17); Calcium 7.7 mg/dL (8.4-10.2); Carbon Dioxide 27 mmol/L (22-30); Chloride 105 mmol/L (98-107); Estimated CRCL calculation 58 ml/min; Estimated Glomerular Filt Rate > 60; Glucose 189 mg/dL (65-110); Potassium 3.9 mmol/L (3.4-5.0); Sodium 136 mmol/L (137-145)
--- NOTE | 2024-07-26 09:57 | WPDCNINT ---
Assessment and Plan Assessment and plan (1) Acute respiratory failure with hypoxia: Code(s): J96.01 - Acute respiratory failure with hypoxia Status: Acute Assessment and Plan: Acute respiratory failure secondary to altered mental status, aspiration pneumonia with underlying COPD CT scan chest x-ray ABG on vent settings reviewed Increase tidal volume to 400 and rate to 20 Bronchodilator Steroids Management of pneumonia as below (2) Altered mental status: Qualifiers: Altered mental status type: coma Coma depth: Garry coma 3-8 Coma timing: at hospital admission Qualified Code(s): R40.2433 - Garry coma scale score 3-8, at hospital admission Code(s): R41.82 - Altered mental status, unspecified Status: Acute Assessment and Plan: Patient presented with unresponsiveness and hypoglycemia. Patient was down for a prolonged period of time This could be secondary to hyperglycemia or she may have had seizure and was postictal. Currently sedated Head CT was negative Hold Versed and fentanyl. Check EEG Consult neurology Check ammonia and TSH Unable to obtain MRI on a vented patient at [facility] (3) Sepsis: Code(s): A41.9 - Sepsis, unspecified organism Status: Acute Assessment and Plan: Sepsis secondary to UTI and pneumonia which is likely aspiration UA suggestive of UTI Chest CT reviewed Blood sputum and urine culture ordered and pending Vancomycin and meropenem (4) Atrial fibrillation with rapid ventricular response: Code(s): I48.91 - Unspecified atrial fibrillation Status: Acute Assessment and Plan: Patient has history of AFib and is on sotalol as an outpatient When patient came in she was in sinus rhythm but after admission she has gone into AFib with RVR I have discussed with Cardiology. I will start patient on diltiazem infusion for rate control and continue sotalol this time. If patient does not tolerate diltiazem she may need amiodarone infusion while monitoring a QTC. Most recent QTC on EKG was 442 Continue apixaban (5) Insulin dependent type 2 diabetes mellitus: Code(s): E11.9 - Type 2 diabetes mellitus without complications; Z79.4 - halfway (current) use of insulin Status: Acute Assessment and Plan: Currently hypoglycemic. On dextrose IV fluids (6) Hypoglycemia: Code(s): E16.2 - Hypoglycemia, unspecified Status: Acute Assessment and Plan: Patient presented with hypoglycemia and was treated with D50 push and now is on D10 water Blood sugars are now slightly elevated I will change the D10 water to D5 normal saline Continue q.1 hour monitoring and wean fluids Start tube feed (7) Acute UTI: Code(s): N39.0 - Urinary tract infection, site not specified Status: Acute Assessment and Plan: See above (8) Pneumonia: Code(s): J18.9 - Pneumonia, unspecified organism Status: Acute Assessment and Plan: See above (9) Chronic obstructive pulmonary disease: Code(s): J44.9 - Chronic obstructive pulmonary disease, unspecified Status: Acute Assessment and Plan: See above (10) Swelling of lower extremity: Code(s): M79.89 - Other specified soft tissue disorders Status: Acute Assessment and Plan: Bilateral pitting edema Check Dopplers to rule out DVT Patient likely has right heart failure from her COPD Plan DVT prophylaxis -apixaban Stress ulcer prophylaxis -protonic Nutrition -start Tube Feeds Code Status - Full Code Total Critical Care Time - 40 minutes Due to a high probability of clinically significant, life threatening deterioration, the patient required my highest level of preparedness to intervene emergently and I personally spent this critical care time directly and personally managing the patient. This critical care time included obtaining a history; examining the patient; pulse oximetry; ordering and review of studies; arranging urgent treatment with development of a management plan; evaluation of patient's response to treatment; frequent reassessment; and discussions with other providers. It was exclusive of separately billable procedures and treating other patients and teaching time. 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 The patient's daughter reported in the ER that see her before 16:30 on the 07/24. Daughter reported that she left to go to a ball game when she came home her mother was still asleep. Daughter than got up and went to work the next day and when she came home from work around 630 p.m. she found the patient was still unresponsive and then called EMS. EMS reported that the patient's initial blood sugar on arrival to the scene was 23 with a repeat reading of 36. Patient was given 1 dose of glucose on with no significant improvement in blood glucose. Patient was then brought to ER for evaluation. Patient had poor IV access and a central venous catheter placed. Patient was hypoxic and was placed on supplemental oxygen. Patient was not protecting her airway and was intubated and placed on mechanical ventilation. Blood glucose eventually improved after administration of multiple amps of D50. There was no improvement with Narcan She was afebrile in the ER and UA was suggestive of UTI. ABG showed pH of 7.37 pCO2 of 41.9 and PO2 of 72. Patient's urine was suggestive of UTI patient was started on meropenem. EKG showed sinus rhythm WBC 8.9 hemoglobin 10.9 normal creatinine Patient now intubated and sedated and admitted in ICU. History was not obtainable from the patient or family. History was obtained from physician sign-out and chart review patient is currently sedated intubated and on mechanical ventilation. ial process Review of Systems Review of Systems: ROS unobtainable: Yes unobtainable due to endotracheal tube, unobtainable due to medical condition and unobtainable due to mental status PMFSH Past Medical History Medical History Paroxysmal atrial fibrillation Chronic anemia MRSA infection MRSA infection of the right hand in October 2013. 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 Amputation of digit of left hand Secondary to osteomyelitis. Status post excision of lipoma History of carpal tunnel release History of section History of hysterectomy History of appendectomy History of exploratory laparotomy History of open reduction and internal fixation (ORIF) procedure (03/2021) Repair of right ankle fracture per Dr. Cristo Lewis at [facility] in [place]. Family History Family History Father Diabetes mellitus Family history of malignant neoplasm Colon cancer Mother Family history of malignant neoplasm Social History Social History Social History: Surrogate medical decision maker: Kavitha Sterling, daughter. Code status: Full code. Smoking packs per day: 1.5 Smoking cigarettes per day: 30.0 Years smoked: 30 Smoking pack-years: 45.00 Smoking status: Current every day smoker Tobacco type: cigarettes Second hand tobacco smoke exposure: Yes Additional smoking assessment comments: Up to 2 PPD at one point (for 50 years, 100 pack years) . Still vapes. Alcohol intake: never Substance use: never Substance use type: does not use Do You Feel Safe in your Home?: Yes Lack of Transportation: No Lack of Food: Never True Current Housing: I Have Housing Concerned About Future Housing: No Difficulty Paying Gas/Electric Bills: No Difficulty Paying for Meds: No Currently Unemployed: No Education: Decline to Answer Difficulty w/ Childcare or Family Care: No Living arrangements: with family Additional living arrangements comments: The patient lives with her daughter Kavitha in [place]. Spiritual care concerns: No Meds Home Medications and Allergies Home Medications ?Medication ?Instructions ?Recorded ?Confirmed ?Type albuterol sulfate 90 mcg/actuation 2 inh inhalation PRN PRN SOB 07/14/20 07/26/24 History aerosol inhaler gabapentin 300 mg capsule 300 mg PO TID 07/14/20 07/26/24 History diltiazem HCl 120 mg 120 mg PO DAILY 12/07/21 07/26/24 History capsule,extended release 24 hr, controlled (DILT-XR) insulin aspart U-100 100 unit/mL 1 sliding scale dose subcut 05/01/24 07/26/24 History (3 mL) subcutaneous pen TIDWMEAL apixaban 5 mg tablet (Eliquis) 5 mg PO Q12HR #60 tabs 05/09/24 07/26/24 Rx insulin glargine 100 unit/mL (3 25 unit (0.25 mL) subcut ACHS #15 05/09/24 07/26/24 Rx mL) subcutaneous pen (Lantus mL Solostar U-100 Insulin) polyethylene glycol 3350 17 gram 17 g PO QAM #30 ea 05/09/24 07/26/24 Rx oral powder packet (Miralax) sotalol 80 mg tablet 80 mg PO Q12HR #60 tabs 05/09/24 07/26/24 Rx cyanocobalamin-methylcobalamin 600 1 tablet sublingual DAILY 30 days 07/09/24 07/26/24 Rx mcg-600 mcg sublingual tablet #30 tabs budesonide-formoterol HFA 160 2 puff inhalation BID 07/26/24 07/26/24 History mcg-4.5 mcg/actuation aerosol inhaler (Breyna) duloxetine 60 mg capsule,delayed 90 mg PO DAILY 07/26/24 07/26/24 History release oxycodone 10 mg tablet 10 mg PO Q4H PRN pain 07/26/24 07/26/24 History Allergies Allergy/AdvReac Type Severity Reaction Status Date / Time eucalyptus Allergy Intermediate BLISTERS Verified 07/26/24 01:28 quinine Allergy Intermediate HIVES Verified 07/26/24 01:28 cephalexin Allergy Unknown Itching Verified 07/26/24 01:28 levofloxacin Allergy Unknown Unknown Verified 07/26/24 01:28 menthol Allergy Unknown BLISTERS Verified 07/26/24 01:28 Quinolones Allergy Unknown Verified 07/26/24 01:28 aspirin AdvReac Unknown Vomiting Verified 07/26/24 01:28 Vital Signs Vital Signs - 24 hr 07/25/24 19:57 07/25/24 20:05 07/25/24 20:30 Temperature 35.9 C L Pulse Rate 61 69 Respiratory Rate 23 H Blood Pressure 105/77 Pulse Oximetry 80 L 97 Oxygen Delivery Nasal Cannula Non-Rebreather Mask Oxygen Flow Rate 6 15 Fraction of Inspired Oxygen 07/25/24 21:19 07/25/24 21:30 07/25/24 21:33 Temperature 37.6 C 37.6 C H Pulse Rate 71 68 Respiratory Rate 20 21 H Blood Pressure 112/91 H Pulse Oximetry 100 99 100 Oxygen Delivery Non-Rebreather Mask Oxygen Flow Rate 15 Fraction of Inspired Oxygen 07/25/24 21:45 07/25/24 21:48 07/25/24 22:00 Temperature 37.7 C H 37.7 C H 37.8 C H Pulse Rate 70 76 77 Respiratory Rate 22 H 21 H 20 Blood Pressure 106/92 H Pulse Oximetry 98 100 97 Oxygen Delivery Oxygen Flow Rate Fraction of Inspired Oxygen 07/25/24 22:01 07/25/24 22:15 07/25/24 22:18 Temperature 37.8 C H 37.9 C H 37.3 C Pulse Rate 80 80 76 Respiratory Rate 21 H 22 H 20 Blood Pressure 116/103 H 133/95 H Pulse Oximetry 98 99 96 Oxygen Delivery Oxygen Flow Rate Fraction of Inspired Oxygen 07/25/24 22:18 07/25/24 22:25 07/25/24 22:25 Temperature 37.9 C H Pulse Rate 85 112 H 112 H Respiratory Rate 21 H 26 H Blood Pressure 133/95 H Pulse Oximetry 94 95 98 Oxygen Delivery Mechanical Ventilation Mechanical Ventilation Oxygen Flow Rate Fraction of Inspired Oxygen 80 80 07/25/24 22:30 07/25/24 22:31 07/25/24 22:33 Temperature 37.9 C H 37.9 C H 37.9 C H Pulse Rate 82 81 85 Respiratory Rate 14 17 17 Blood Pressure 160/68 H 160/68 H Pulse Oximetry 100 100 95 Oxygen Delivery Oxygen Flow Rate Fraction of Inspired Oxygen 07/25/24 22:45 07/25/24 22:46 07/25/24 22:49 Temperature 38.0 C H 38.1 C H Pulse Rate 81 79 84 Respiratory Rate 18 20 20 Blood Pressure 143/43 H Pulse Oximetry Oxygen Delivery Oxygen Flow Rate Fraction of Inspired Oxygen 07/25/24 22:54 07/25/24 23:00 07/25/24 23:01 Temperature 38.1 C H 38.1 C H Pulse Rate 84 80 80 Respiratory Rate 23 H 22 H 26 H Blood Pressure 111/91 H Pulse Oximetry 100 99 Oxygen Delivery Oxygen Flow Rate Fraction of Inspired Oxygen 07/25/24 23:15 07/25/24 23:16 07/25/24 23:17 Temperature 38.1 C H 38.1 C H Pulse Rate 83 84 83 Respiratory Rate 28 H 28 H 24 H Blood Pressure 150/104 H Pulse Oximetry 97 97 Oxygen Delivery Oxygen Flow Rate Fraction of Inspired Oxygen 07/25/24 23:30 07/25/24 23:32 07/25/24 23:43 Temperature 38.1 C H 38.1 C H 38.1 C H Pulse Rate 82 82 76 Respiratory Rate 25 H 24 H 23 H Blood Pressure 136/62 124/80 Pulse Oximetry 79 L 97 96 Oxygen Delivery Oxygen Flow Rate Fraction of Inspired Oxygen 07/26/24 00:30 07/26/24 00:51 07/26/24 01:15 Temperature 37.8 C H Pulse Rate 79 82 Respiratory Rate 21 H 20 Blood Pressure 106/60 Pulse Oximetry 97 97 Oxygen Delivery Mechanical Ventilation Oxygen Flow Rate Fraction of Inspired Oxygen 50 07/26/24 01:29 07/26/24 02:00 07/26/24 02:00 Temperature Pulse Rate 78 80 80 Respiratory Rate 21 H 21 H Blood Pressure Pulse Oximetry 92 Oxygen Delivery Mechanical Ventilation Oxygen Flow Rate Fraction of Inspired Oxygen 80 07/26/24 02:00 07/26/24 02:00 07/26/24 02:21 Temperature 37.4 C Pulse Rate 80 80 81 Respiratory Rate 21 H 23 H Blood Pressure 134/48 L Pulse Oximetry 91 Oxygen Delivery Oxygen Flow Rate Fraction of Inspired Oxygen 07/26/24 03:00 07/26/24 04:00 07/26/24 04:00 Temperature Pulse Rate 84 Respiratory Rate 23 H Blood Pressure Pulse Oximetry 95 Oxygen Delivery Mechanical Ventilation Oxygen Flow Rate Fraction of Inspired Oxygen 50 50 07/26/24 04:00 07/26/24 04:00 07/26/24 04:00 Temperature 37.3 C Pulse Rate 64 65 65 Respiratory Rate 17 17 Blood Pressure 135/46 L Pulse Oximetry 95 Oxygen Delivery Oxygen Flow Rate Fraction of Inspired Oxygen 07/26/24 04:00 07/26/24 05:24 07/26/24 06:00 Temperature 37.2 C Pulse Rate 65 80 58 L Respiratory Rate 17 18 Blood Pressure 137/45 L Pulse Oximetry 93 95 Oxygen Delivery Mechanical Ventilation Oxygen Flow Rate Fraction of Inspired Oxygen 80 07/26/24 06:00 07/26/24 06:00 07/26/24 06:00 Temperature Pulse Rate 58 L 58 L 58 L Respiratory Rate 18 18 Blood Pressure Pulse Oximetry Oxygen Delivery Oxygen Flow Rate Fraction of Inspired Oxygen 07/26/24 08:25 07/26/24 08:56 07/26/24 09:01 Temperature Pulse Rate 61 140 H 135 H Respiratory Rate 22 H Blood Pressure Pulse Oximetry 98 Oxygen Delivery Mechanical Ventilation Oxygen Flow Rate Fraction of Inspired Oxygen 50 07/26/24 09:11 07/26/24 09:12 07/26/24 09:15 Temperature Pulse Rate 132 H 125 H Respiratory Rate 20 Blood Pressure Pulse Oximetry 95 96 Oxygen Delivery Mechanical Ventilation Mechanical Ventilation Oxygen Flow Rate Fraction of Inspired Oxygen 50 40 Exam Narrative: General: Pt is sedated, intubated and on mechanical ventilation Lungs/Chest: Trachea central Coarse BS B/L, bilateral wheezing Cardiac: A regular rate and rhythm. Normal S1 S2. No murmurs Circulation: Pedal pulses are intact and symmetrical. Abdomen: Decreased bowel sounds.. Soft. NT. ND. Extremities: Bilateral pitting edema present right more than left : [place] in place Neurologic: Unable to fully assess due to patient being on Versed and fentanyl sedation. She did not withdraw to pain. Pupils were equal round and reactive to light. On holding sedation she does move her upper extremities spontaneously. Results Labs 07/26/24 08:52 07/26/24 08:52 Labs: Impressions Head CT 07/25/24 21:08 Impression: No large acute intracranial hemorrhage or suspicious mass effect. Chest X-Ray 07/25/24 21:26 IMPRESSION: Left upper lobe infiltrate Abdomen X-Ray 07/25/24 22:47 IMPRESSION: Endotracheal tube in good radiographic position. Orogastric tube in good position, and ready for immediate use. Redemonstration of a left upper lobe infiltrate, now with mild to moderate pulmonary vascular congestion Chest X-Ray 07/25/24 22:47 IMPRESSION: Endotracheal tube in good radiographic position. Orogastric tube in good position, and ready for immediate use. Redemonstration of a left upper lobe infiltrate, now with mild to moderate pulmonary vascular congestion Chest CT 07/26/24 05:14 Impression: Moderate left pleural effusion is increased from prior exam. Minimal right pleural effusion. Extensive presumed atelectatic changes in the left lower lobe and left upper lobe/lingula with mild right basilar atelectasis. Correlate clinically for pulmonary edema or pneumonia. Stable irregular airspace consolidation left lung apex, suggestive of chronic scarring or postinflammatory change. Correlate for acute pneumonia. Chest X-Ray 07/26/24 05:30 Impression: Stable support tubes. Stable left perihilar and right suprahilar consolidation. Correlate for bilateral pneumonia. Short CBC 07/25/24 07/26/24 Range/Units 20:46 08:52 WBC 12.2 H 8.9 (4.5-10.0) K/mm3 Hgb 10.8 L 10.9 L (12.0-15.0) g/dL Hct 35.5 L 35.0 L (37.0-47.0) % Plt Count 216 175 (150-375) k/mm3 BMP 07/25/24 07/26/24 20:46 08:52 Sodium 135 L 136 L Potassium 4.7 3.9 Chloride 100 105 Carbon Dioxide 30 27 BUN 17 14 Creatinine 0.78 0.71 Glucose 286 H 189 H Calcium 8.3 L 7.7 L Liver Function 07/25/24 Range/Units 20:46 Total Bilirubin 0.4 (0.2-1.3) mg/dL AST 27 (14-36) U/L ALT 21 (6-35) U/L Alkaline Phosphatase 98 (38-126) U/L Albumin 3.1 L (3.5-5.1) g/dL Urine 07/25/24 Range/Units 20:46 Urine Color Yellow (Yellow) Urine Appearance Cloudy H (Clear) Urine pH 5.0 (5.0-9.0) Ur Specific [place] 1.016 (1.001-1.035) Urine Protein 1+ H (Negative) mg/dL Urine Glucose (UA) 1+ H (Negative) mg/dL Quality VTE Prophylaxis VTE prophylaxis: pharmacologic ordered Hospitalist MIPS Advance Care Plan I have confirmed that the patient's Advanced Care Plan is present, code status is documented, or surrogate decision maker is listed in patient medical record.: Yes Medication Reconciliation I have utilized all available resources to obtain, update and review the patients current medications (includes all prescriptions, OTC, herbals, cannabis, and nutritional supplements).: Yes
[2024-07-26] MEDS: dilTIAZem HCl INJ 25 MG/5 ML VIAL 20 MG IV PUSH (10:07)
[2024-07-26] MEDS: dilTIAZem 100 MG/100 ML 100 MG/100 ML BAG IV CONT (10:07)
[2024-07-26 10:13] LABS: Creatine Kinase 162 U/L (30-135)
[2024-07-26] MEDS: DEXTROSE 5%/0.9% SOD CHL 1,000 ML 75 ML IV CONT (10:27)
[2024-07-26] MEDS: methylPREDNISolone SOD SUCC 125 MG VIAL 80 MG IV PUSH (10:30)
[2024-07-26] MEDS: CALCIUM GLUC 2,000 MG/NS 100ML 2,000 MG/100 ML BAG 100 MG IVPB (10:31)
[2024-07-26] MEDS: PROPOFOL IV EMULSION 100 ML 4.6 MG IV CONT (11:17)
--- NOTE | 2024-07-26 11:31 | P.CONNEU_ITS ---
Assessment and Plan Assessment and plan (1) Metabolic encephalopathy: Code(s): G93.41 - Metabolic encephalopathy Status: Acute Assessment and Plan: this would be most likely from hypoglycemia leading to prolonged unresponsiveness as described above. She is off sedatives for 2 hours prior to my evaluating her. She still on the ventilator support. Clinical follow-up is recommended. EEG is also recommended. If she has any further seizure-like spell further investigations such as MRI of the brain may be helpful. (2) Paroxysmal atrial fibrillation: Code(s): I48.0 - Paroxysmal atrial fibrillation Status: Acute Assessment and Plan: The patient has been on long-term anticoagulation with Eliquis. (3) Insulin dependent type 2 diabetes mellitus: Code(s): E11.9 - Type 2 diabetes mellitus without complications; Z79.4 - residential (current) use of insulin Status: Acute (4) Acute UTI: Code(s): N39.0 - Urinary tract infection, site not specified Status: Acute Assessment and Plan: It is suspected at this time. Cultures are awaited. (5) Chronic obstructive pulmonary disease: Code(s): J44.9 - Chronic obstructive pulmonary disease, unspecified Status: Acute (6) Tobacco dependence: Code(s): F17.200 - Nicotine dependence, unspecified, uncomplicated Status: Acute Plan I will suggest continue with Clinical and neurologic follow-up. I shall review the EEG once done. Consult date: 07/26/24 HPI: Edelmira Cardenas is a 74 year old female with history of diabetes mellitus who became unresponsive and was found to have a serum glucose of 23. She had a prolonged time recovery from this nevertheless the EM T were unable to get the IV line. Patient was given IM glucagon in the emergency room an emergent central line was placed in the right femoral. Patient also on Lantus because there is a history of intermittent atrial fibrillation. She is currently intubated. She is she is off any sedatives for last 2 hours. an over tracheal intubation was performed since the patient remained unresponsive. Her white cell count was 12.2 on admission and serum glucose initially was less than 20 which subsequently went up to 121. Liver enzymes and creatinine were within normal range. The patient has been on insulin at home. CT scan of brain was performed on admission which did not show any significant or acute abnormalities. I reviewed the films and agreed the findings. The patient also a smoker and is known to have COPD with prior history of respiratory failure and pulmonary hypertension. She is also suspected urinary tract infection she has not had any seizure-like activity while in the ICU. She remains very drowsy and currently is still on intubation. Review of Systems 2 Review of Systems: ROS unobtainable: Yes unobtainable due to medical condition and unobtainable due to mental status PMFSH Past Medical History Medical History Paroxysmal atrial fibrillation Chronic anemia MRSA infection MRSA infection of the right hand in October 2013. 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 Amputation of digit of left hand Secondary to osteomyelitis. Status post excision of lipoma History of carpal tunnel release History of section History of hysterectomy History of appendectomy History of exploratory laparotomy History of open reduction and internal fixation (ORIF) procedure (03/2021) Repair of right ankle fracture per Dr. Cristo Lewis at [facility]. Family History Family History Father Diabetes mellitus Family history of malignant neoplasm Colon cancer Mother Family history of malignant neoplasm Social History Social History Social History: Surrogate medical decision maker: Kavitha Sterling, daughter. Code status: Full code. Smoking packs per day: 1.5 Smoking cigarettes per day: 30.0 Years smoked: 30 Smoking pack-years: 45.00 Smoking status: Current every day smoker Tobacco type: cigarettes Second hand tobacco smoke exposure: Yes Additional smoking assessment comments: Up to 2 PPD at one point (for 50 years, 100 pack years) . Still vapes. Alcohol intake: never Substance use: never Substance use type: does not use Do You Feel Safe in your Home?: Yes Lack of Transportation: No Lack of Food: Never True Current Housing: I Have Housing Concerned About Future Housing: No Difficulty Paying Gas/Electric Bills: No Difficulty Paying for Meds: No Currently Unemployed: No Education: Decline to Answer Difficulty w/ Childcare or Family Care: No Living arrangements: with family Additional living arrangements comments: The patient lives with her daughter Kavitha in [place]. Spiritual care concerns: No Meds Home Medications and Allergies Home Medications ?Medication ?Instructions ?Recorded ?Confirmed ?Type albuterol sulfate 90 mcg/actuation 2 inh inhalation PRN PRN SOB 07/14/20 07/26/24 History aerosol inhaler gabapentin 300 mg capsule 300 mg PO TID 07/14/20 07/26/24 History diltiazem HCl 120 mg 120 mg PO DAILY 12/07/21 07/26/24 History capsule,extended release 24 hr, controlled (DILT-XR) insulin aspart U-100 100 unit/mL 1 sliding scale dose subcut 05/01/24 07/26/24 History (3 mL) subcutaneous pen TIDWMEAL apixaban 5 mg tablet (Eliquis) 5 mg PO Q12HR #60 tabs 05/09/24 07/26/24 Rx insulin glargine 100 unit/mL (3 25 unit (0.25 mL) subcut ACHS #15 05/09/24 07/26/24 Rx mL) subcutaneous pen (Lantus mL Solostar U-100 Insulin) polyethylene glycol 3350 17 gram 17 g PO QAM #30 ea 05/09/24 07/26/24 Rx oral powder packet (Miralax) sotalol 80 mg tablet 80 mg PO Q12HR #60 tabs 05/09/24 07/26/24 Rx cyanocobalamin-methylcobalamin 600 1 tablet sublingual DAILY 30 days 07/09/24 07/26/24 Rx mcg-600 mcg sublingual tablet #30 tabs budesonide-formoterol HFA 160 2 puff inhalation BID 07/26/24 07/26/24 History mcg-4.5 mcg/actuation aerosol inhaler (Breyna) duloxetine 60 mg capsule,delayed 90 mg PO DAILY 07/26/24 07/26/24 History release oxycodone 10 mg tablet 10 mg PO Q4H PRN pain 07/26/24 07/26/24 History Allergies Allergy/AdvReac Type Severity Reaction Status Date / Time eucalyptus Allergy Intermediate BLISTERS Verified 07/26/24 01:28 quinine Allergy Intermediate HIVES Verified 07/26/24 01:28 cephalexin Allergy Unknown Itching Verified 07/26/24 01:28 levofloxacin Allergy Unknown Unknown Verified 07/26/24 01:28 menthol Allergy Unknown BLISTERS Verified 07/26/24 01:28 Quinolones Allergy Unknown Verified 07/26/24 01:28 aspirin AdvReac Unknown Vomiting Verified 07/26/24 01:28 Vital Signs Vital Signs - 24 hr 07/25/24 19:57 07/25/24 20:05 07/25/24 20:30 Temperature 96.6 F L Pulse Rate 61 69 Respiratory Rate 23 H Blood Pressure 105/77 Pulse Oximetry 80 L 97 Oxygen Delivery Nasal Cannula Non-Rebreather Mask Oxygen Flow Rate 6 15 Fraction of Inspired Oxygen 07/25/24 21:19 07/25/24 21:30 07/25/24 21:33 Temperature 99.6 F 99.7 F H Pulse Rate 71 68 Respiratory Rate 20 21 H Blood Pressure 112/91 H Pulse Oximetry 100 99 100 Oxygen Delivery Non-Rebreather Mask Oxygen Flow Rate 15 Fraction of Inspired Oxygen 07/25/24 21:45 07/25/24 21:48 07/25/24 22:00 Temperature 99.9 F H 99.9 F H 100.1 F H Pulse Rate 70 76 77 Respiratory Rate 22 H 21 H 20 Blood Pressure 106/92 H Pulse Oximetry 98 100 97 Oxygen Delivery Oxygen Flow Rate Fraction of Inspired Oxygen 07/25/24 22:01 07/25/24 22:15 07/25/24 22:18 Temperature 100.1 F H 100.2 F H 99.2 F Pulse Rate 80 80 76 Respiratory Rate 21 H 22 H 20 Blood Pressure 116/103 H 133/95 H Pulse Oximetry 98 99 96 Oxygen Delivery Oxygen Flow Rate Fraction of Inspired Oxygen 07/25/24 22:18 07/25/24 22:25 07/25/24 22:25 Temperature 100.3 F H Pulse Rate 85 112 H 112 H Respiratory Rate 21 H 26 H Blood Pressure 133/95 H Pulse Oximetry 94 95 98 Oxygen Delivery Mechanical Ventilation Mechanical Ventilation Oxygen Flow Rate Fraction of Inspired Oxygen 80 80 07/25/24 22:30 07/25/24 22:31 07/25/24 22:33 Temperature 100.2 F H 100.2 F H 100.2 F H Pulse Rate 82 81 85 Respiratory Rate 14 17 17 Blood Pressure 160/68 H 160/68 H Pulse Oximetry 100 100 95 Oxygen Delivery Oxygen Flow Rate Fraction of Inspired Oxygen 07/25/24 22:45 07/25/24 22:46 07/25/24 22:49 Temperature 100.4 F H 100.5 F H Pulse Rate 81 79 84 Respiratory Rate 18 20 20 Blood Pressure 143/43 H Pulse Oximetry Oxygen Delivery Oxygen Flow Rate Fraction of Inspired Oxygen 07/25/24 22:54 07/25/24 23:00 07/25/24 23:01 Temperature 100.5 F H 100.6 F H Pulse Rate 84 80 80 Respiratory Rate 23 H 22 H 26 H Blood Pressure 111/91 H Pulse Oximetry 100 99 Oxygen Delivery Oxygen Flow Rate Fraction of Inspired Oxygen 07/25/24 23:15 07/25/24 23:16 07/25/24 23:17 Temperature 100.6 F H 100.6 F H Pulse Rate 83 84 83 Respiratory Rate 28 H 28 H 24 H Blood Pressure 150/104 H Pulse Oximetry 97 97 Oxygen Delivery Oxygen Flow Rate Fraction of Inspired Oxygen 07/25/24 23:30 07/25/24 23:32 07/25/24 23:43 Temperature 100.5 F H 100.5 F H 100.6 F H Pulse Rate 82 82 76 Respiratory Rate 25 H 24 H 23 H Blood Pressure 136/62 124/80 Pulse Oximetry 79 L 97 96 Oxygen Delivery Oxygen Flow Rate Fraction of Inspired Oxygen 07/26/24 00:30 07/26/24 00:51 07/26/24 01:15 Temperature 100.0 F H Pulse Rate 79 82 Respiratory Rate 21 H 20 Blood Pressure 106/60 Pulse Oximetry 97 97 Oxygen Delivery Mechanical Ventilation Oxygen Flow Rate Fraction of Inspired Oxygen 50 07/26/24 01:29 07/26/24 02:00 07/26/24 02:00 Temperature Pulse Rate 78 80 80 Respiratory Rate 21 H 21 H Blood Pressure Pulse Oximetry 92 Oxygen Delivery Mechanical Ventilation Oxygen Flow Rate Fraction of Inspired Oxygen 80 07/26/24 02:00 07/26/24 02:00 07/26/24 02:21 Temperature 99.4 F Pulse Rate 80 80 81 Respiratory Rate 21 H 23 H Blood Pressure 134/48 L Pulse Oximetry 91 Oxygen Delivery Oxygen Flow Rate Fraction of Inspired Oxygen 07/26/24 03:00 07/26/24 04:00 07/26/24 04:00 Temperature Pulse Rate 84 Respiratory Rate 23 H Blood Pressure Pulse Oximetry 95 Oxygen Delivery Mechanical Ventilation Oxygen Flow Rate Fraction of Inspired Oxygen 50 50 07/26/24 04:00 07/26/24 04:00 07/26/24 04:00 Temperature 99.1 F Pulse Rate 64 65 65 Respiratory Rate 17 17 Blood Pressure 135/46 L Pulse Oximetry 95 Oxygen Delivery Oxygen Flow Rate Fraction of Inspired Oxygen 07/26/24 04:00 07/26/24 05:24 07/26/24 06:00 Temperature 98.9 F Pulse Rate 65 80 58 L Respiratory Rate 17 18 Blood Pressure 137/45 L Pulse Oximetry 93 95 Oxygen Delivery Mechanical Ventilation Oxygen Flow Rate Fraction of Inspired Oxygen 80 07/26/24 06:00 07/26/24 06:00 07/26/24 06:00 Temperature Pulse Rate 58 L 58 L 58 L Respiratory Rate 18 18 Blood Pressure Pulse Oximetry Oxygen Delivery Oxygen Flow Rate Fraction of Inspired Oxygen 07/26/24 08:25 07/26/24 08:56 07/26/24 09:01 Temperature Pulse Rate 61 140 H 135 H Respiratory Rate 22 H Blood Pressure Pulse Oximetry 98 Oxygen Delivery Mechanical Ventilation Oxygen Flow Rate Fraction of Inspired Oxygen 50 07/26/24 09:11 07/26/24 09:12 07/26/24 09:15 Temperature Pulse Rate 132 H 125 H Respiratory Rate 20 Blood Pressure Pulse Oximetry 95 96 Oxygen Delivery Mechanical Ventilation Mechanical Ventilation Oxygen Flow Rate Fraction of Inspired Oxygen 50 40 07/26/24 10:07 07/26/24 11:17 07/26/24 11:28 Temperature Pulse Rate 160 H 123 H 151 H Respiratory Rate 32 H 29 H Blood Pressure 141/85 H Pulse Oximetry Oxygen Delivery Oxygen Flow Rate Fraction of Inspired Oxygen Exam 2 Narrative: patient intubated and unresponsive to verbal and gentle painful stimuli. Pupils for which size and sluggishly reactive to light. Doll's eyes movements are present. No asymmetry the reflexes noted on both sides. No apparent facial asymmetry. Examination was limited since the patient unable to cooperate. She is however kicking in some respiration while still on the ventilator. Results Labs 07/26/24 08:52 07/26/24 08:52 Labs: Short CBC 07/25/24 07/26/24 Range/Units 20:46 08:52 WBC 12.2 H 8.9 (4.5-10.0) K/mm3 Hgb 10.8 L 10.9 L (12.0-15.0) g/dL Hct 35.5 L 35.0 L (37.0-47.0) % Plt Count 216 175 (150-375) k/mm3 BMP 07/25/24 07/26/24 20:46 08:52 Sodium 135 L 136 L Potassium 4.7 3.9 Chloride 100 105 Carbon Dioxide 30 27 BUN 17 14 Creatinine 0.78 0.71 Glucose 286 H 189 H Calcium 8.3 L 7.7 L Cardiac Enzymes 07/26/24 Range/Units 08:52 Total Creatine Kinase 162 H (30-135) U/L Liver Function 07/25/24 Range/Units 20:46 Total Bilirubin 0.4 (0.2-1.3) mg/dL AST 27 (14-36) U/L ALT 21 (6-35) U/L Alkaline Phosphatase 98 (38-126) U/L Albumin 3.1 L (3.5-5.1) g/dL Urine 07/25/24 Range/Units 20:46 Urine Color Yellow (Yellow) Urine Appearance Cloudy H (Clear) Urine pH 5.0 (5.0-9.0) Ur Specific [place] 1.016 (1.001-1.035) Urine Protein 1+ H (Negative) mg/dL Urine Glucose (UA) 1+ H (Negative) mg/dL Imaging Attestation: I personally reviewed and interpreted this imaging study as follows: ( CT scan of brain without contrast On 07/26/2023) My impression: no acute findings were noted. The ventricle size appears normal. Radiologist's impression: Same
[2024-07-26 11:32] LABS: Ammonia < 9 umol/L (9-30)
[2024-07-26 11:53] LABS: Triglycerides 103 mg/dL (<150)
[2024-07-26 11:58] LABS: Glucose Point of Care 162 mg/dl (65-105)
[2024-07-26 11:58] LABS: Glucose Point of Care 228 mg/dl (65-105)
[2024-07-26 11:58] LABS: Glucose Point of Care 147 mg/dl (65-105)
[2024-07-26 15:05] LABS: Glucose Point of Care 214 mg/dl (65-105)
[2024-07-26 15:05] LABS: Glucose Point of Care 211 mg/dl (65-105)
--- NOTE | 2024-07-26 15:27 | PM.CNCAR ---
Assessment and Plan Assessment and plan (1) Atrial fibrillation with rapid ventricular response: Code(s): I48.91 - Unspecified atrial fibrillation Status: Acute Assessment and Plan: -TTE -Check TSH and free T3 and free T4 -Start Cardizem drip and titrate to rate<110 -Continue anticoagulation with Eliquis -Continue Sotalol -If pt unable to tolerate cardizem due to hypotension, then give amiodarone 300mg IV once followed by drip. Stop Sotalol if amiodarone is started. EKG shows QTc of 442. Monitor on telemetry continuously. Repeat EKG in 4 hours after starting amiodarone -Check and replace electrolytes as needed to keep K>4 and Mg>2 History of Present Illness History of Present Illness Consult date/time: 07/26/24 15:27 Reason For Visit: Pneumonia, UTI, Hypoglycemia, AMS Narrative: Edelmira Cardenas is a 74 year old female with past medical history of insulin-dependent diabetes mellitus, essential hypertension, paroxysmal atrial fibrillation on sotalol and apixaban, hyperlipidemia, tobacco abuse, COPD with history of prior respiratory failure, pulmonary hypertension and chronic anemia who was brought to the ER last night after she was found unresponsive at home. The patient's daughter reported in the ER that she saw patient before 16:30 on the 07/24. Daughter reported that she left to go to a ball game when she came home her mother was still asleep. Daughter than got up and went to work the next day and when she came home from work around 630 p.m. she found the patient was still unresponsive and then called EMS. Patient's blood sugar was 23. She was administered 1 dose of glucose with no significant improvement in blood glucose. Patient was then brought to ER. Patient was hypoxic and was placed on supplemental oxygen. Patient was not protecting her airway and was intubated and placed on mechanical ventilation. Blood glucose eventually improved after administration of multiple amps of D50. There was no improvement with Narcan. UA was suggestive of UTI and she was started on antibiotic. When she presented to the ER she was in SR but went into A fib with RVR and cardiology was consulted for further recommendations. No history could be obtained from patient as she is intubated and sedated. Review of Systems Review of Systems: A complete review of systems could not be performed as patient is intubated and sedated. [facility] Past Medical History Medical History Paroxysmal atrial fibrillation Chronic anemia MRSA infection MRSA infection of the right hand in October 2013. 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 Amputation of digit of left hand Secondary to osteomyelitis. Status post excision of lipoma History of carpal tunnel release History of section History of hysterectomy History of appendectomy History of exploratory laparotomy History of open reduction and internal fixation (ORIF) procedure (03/2021) Repair of right ankle fracture per Dr. Cristo Lewis at [facility]. Family History Family History Father Diabetes mellitus Family history of malignant neoplasm Colon cancer Mother Family history of malignant neoplasm Social History Social History Social History: Surrogate medical decision maker: Kavitha Sterling, daughter. Code status: Full code. Smoking packs per day: 1.5 Smoking cigarettes per day: 30.0 Years smoked: 30 Smoking pack-years: 45.00 Smoking status: Current every day smoker Tobacco type: cigarettes Second hand tobacco smoke exposure: Yes Additional smoking assessment comments: Up to 2 PPD at one point (for 50 years, 100 pack years) . Still vapes. Alcohol intake: never Substance use: never Substance use type: does not use Do You Feel Safe in your Home?: Yes Lack of Transportation: No Lack of Food: Never True Current Housing: I Have Housing Concerned About Future Housing: No Difficulty Paying Gas/Electric Bills: No Difficulty Paying for Meds: No Currently Unemployed: No Education: Decline to Answer Difficulty w/ Childcare or Family Care: No Living arrangements: with family Additional living arrangements comments: The patient lives with her daughter Kavitha in [place]. Spiritual care concerns: No Meds Home Medications and Allergies Home Medications ?Medication ?Instructions ?Recorded ?Confirmed ?Type albuterol sulfate 90 mcg/actuation 2 inh inhalation PRN PRN SOB 07/14/20 07/26/24 History aerosol inhaler gabapentin 300 mg capsule 300 mg PO TID 07/14/20 07/26/24 History diltiazem HCl 120 mg 120 mg PO DAILY 12/07/21 07/26/24 History capsule,extended release 24 hr, controlled (DILT-XR) insulin aspart U-100 100 unit/mL 1 sliding scale dose subcut 05/01/24 07/26/24 History (3 mL) subcutaneous pen TIDWMEAL apixaban 5 mg tablet (Eliquis) 5 mg PO Q12HR #60 tabs 05/09/24 07/26/24 Rx insulin glargine 100 unit/mL (3 25 unit (0.25 mL) subcut ACHS #15 05/09/24 07/26/24 Rx mL) subcutaneous pen (Lantus mL Solostar U-100 Insulin) polyethylene glycol 3350 17 gram 17 g PO QAM #30 ea 05/09/24 07/26/24 Rx oral powder packet (Miralax) sotalol 80 mg tablet 80 mg PO Q12HR #60 tabs 05/09/24 07/26/24 Rx cyanocobalamin-methylcobalamin 600 1 tablet sublingual DAILY 30 days 07/09/24 07/26/24 Rx mcg-600 mcg sublingual tablet #30 tabs budesonide-formoterol HFA 160 2 puff inhalation BID 07/26/24 07/26/24 History mcg-4.5 mcg/actuation aerosol inhaler (Breyna) duloxetine 60 mg capsule,delayed 90 mg PO DAILY 07/26/24 07/26/24 History release oxycodone 10 mg tablet 10 mg PO Q4H PRN pain 07/26/24 07/26/24 History Allergies Allergy/AdvReac Type Severity Reaction Status Date / Time eucalyptus Allergy Intermediate BLISTERS Verified 07/26/24 01:28 quinine Allergy Intermediate HIVES Verified 07/26/24 01:28 cephalexin Allergy Unknown Itching Verified 07/26/24 01:28 levofloxacin Allergy Unknown Unknown Verified 07/26/24 01:28 menthol Allergy Unknown BLISTERS Verified 07/26/24 01:28 Quinolones Allergy Unknown Verified 07/26/24 01:28 aspirin AdvReac Unknown Vomiting Verified 07/26/24 01:28 Vital Signs Vital Signs - 24 hr 07/25/24 19:57 07/25/24 20:05 07/25/24 20:30 Temperature 35.9 C L Pulse Rate 61 69 Respiratory Rate 23 H Blood Pressure 105/77 Pulse Oximetry 80 L 97 Oxygen Delivery Nasal Cannula Non-Rebreather Mask Oxygen Flow Rate 6 15 Fraction of Inspired Oxygen 07/25/24 21:19 07/25/24 21:30 07/25/24 21:33 Temperature 37.6 C 37.6 C H Pulse Rate 71 68 Respiratory Rate 20 21 H Blood Pressure 112/91 H Pulse Oximetry 100 99 100 Oxygen Delivery Non-Rebreather Mask Oxygen Flow Rate 15 Fraction of Inspired Oxygen 07/25/24 21:45 07/25/24 21:48 07/25/24 22:00 Temperature 37.7 C H 37.7 C H 37.8 C H Pulse Rate 70 76 77 Respiratory Rate 22 H 21 H 20 Blood Pressure 106/92 H Pulse Oximetry 98 100 97 Oxygen Delivery Oxygen Flow Rate Fraction of Inspired Oxygen 07/25/24 22:01 07/25/24 22:15 07/25/24 22:18 Temperature 37.8 C H 37.9 C H 37.3 C Pulse Rate 80 80 76 Respiratory Rate 21 H 22 H 20 Blood Pressure 116/103 H 133/95 H Pulse Oximetry 98 99 96 Oxygen Delivery Oxygen Flow Rate Fraction of Inspired Oxygen 07/25/24 22:18 07/25/24 22:25 07/25/24 22:25 Temperature 37.9 C H Pulse Rate 85 112 H 112 H Respiratory Rate 21 H 26 H Blood Pressure 133/95 H Pulse Oximetry 94 95 98 Oxygen Delivery Mechanical Ventilation Mechanical Ventilation Oxygen Flow Rate Fraction of Inspired Oxygen 80 80 07/25/24 22:30 07/25/24 22:31 07/25/24 22:33 Temperature 37.9 C H 37.9 C H 37.9 C H Pulse Rate 82 81 85 Respiratory Rate 14 17 17 Blood Pressure 160/68 H 160/68 H Pulse Oximetry 100 100 95 Oxygen Delivery Oxygen Flow Rate Fraction of Inspired Oxygen 07/25/24 22:45 07/25/24 22:46 07/25/24 22:49 Temperature 38.0 C H 38.1 C H Pulse Rate 81 79 84 Respiratory Rate 18 20 20 Blood Pressure 143/43 H Pulse Oximetry Oxygen Delivery Oxygen Flow Rate Fraction of Inspired Oxygen 07/25/24 22:54 07/25/24 23:00 07/25/24 23:01 Temperature 38.1 C H 38.1 C H Pulse Rate 84 80 80 Respiratory Rate 23 H 22 H 26 H Blood Pressure 111/91 H Pulse Oximetry 100 99 Oxygen Delivery Oxygen Flow Rate Fraction of Inspired Oxygen 07/25/24 23:15 07/25/24 23:16 07/25/24 23:17 Temperature 38.1 C H 38.1 C H Pulse Rate 83 84 83 Respiratory Rate 28 H 28 H 24 H Blood Pressure 150/104 H Pulse Oximetry 97 97 Oxygen Delivery Oxygen Flow Rate Fraction of Inspired Oxygen 07/25/24 23:30 07/25/24 23:32 07/25/24 23:43 Temperature 38.1 C H 38.1 C H 38.1 C H Pulse Rate 82 82 76 Respiratory Rate 25 H 24 H 23 H Blood Pressure 136/62 124/80 Pulse Oximetry 79 L 97 96 Oxygen Delivery Oxygen Flow Rate Fraction of Inspired Oxygen 07/26/24 00:30 07/26/24 00:51 07/26/24 01:15 Temperature 37.8 C H Pulse Rate 79 82 Respiratory Rate 21 H 20 Blood Pressure 106/60 Pulse Oximetry 97 97 Oxygen Delivery Mechanical Ventilation Oxygen Flow Rate Fraction of Inspired Oxygen 50 07/26/24 01:29 07/26/24 02:00 07/26/24 02:00 Temperature Pulse Rate 78 80 80 Respiratory Rate 21 H 21 H Blood Pressure Pulse Oximetry 92 Oxygen Delivery Mechanical Ventilation Oxygen Flow Rate Fraction of Inspired Oxygen 80 07/26/24 02:00 07/26/24 02:00 07/26/24 02:21 Temperature 37.4 C Pulse Rate 80 80 81 Respiratory Rate 21 H 23 H Blood Pressure 134/48 L Pulse Oximetry 91 Oxygen Delivery Oxygen Flow Rate Fraction of Inspired Oxygen 07/26/24 03:00 07/26/24 04:00 07/26/24 04:00 Temperature Pulse Rate 84 Respiratory Rate 23 H Blood Pressure Pulse Oximetry 95 Oxygen Delivery Mechanical Ventilation Oxygen Flow Rate Fraction of Inspired Oxygen 50 50 07/26/24 04:00 07/26/24 04:00 07/26/24 04:00 Temperature 37.3 C Pulse Rate 64 65 65 Respiratory Rate 17 17 Blood Pressure 135/46 L Pulse Oximetry 95 Oxygen Delivery Oxygen Flow Rate Fraction of Inspired Oxygen 07/26/24 04:00 07/26/24 05:24 07/26/24 06:00 Temperature 37.2 C Pulse Rate 65 80 58 L Respiratory Rate 17 18 Blood Pressure 137/45 L Pulse Oximetry 93 95 Oxygen Delivery Mechanical Ventilation Oxygen Flow Rate Fraction of Inspired Oxygen 80 07/26/24 06:00 07/26/24 06:00 07/26/24 06:00 Temperature Pulse Rate 58 L 58 L 58 L Respiratory Rate 18 18 Blood Pressure Pulse Oximetry Oxygen Delivery Oxygen Flow Rate Fraction of Inspired Oxygen 07/26/24 08:00 07/26/24 08:00 07/26/24 08:00 Temperature 37.0 C Pulse Rate 57 L 57 L Respiratory Rate 17 Blood Pressure 118/41 L Pulse Oximetry 98 Oxygen Delivery Oxygen Flow Rate Fraction of Inspired Oxygen 40 07/26/24 08:00 07/26/24 08:25 07/26/24 08:56 Temperature Pulse Rate 57 L 61 140 H Respiratory Rate 20 Blood Pressure Pulse Oximetry 96 98 Oxygen Delivery Mechanical Ventilation Mechanical Ventilation Oxygen Flow Rate Fraction of Inspired Oxygen 40 50 07/26/24 08:56 07/26/24 08:56 07/26/24 09:01 Temperature Pulse Rate 160 H 160 H 135 H Respiratory Rate 22 H 22 H 22 H Blood Pressure Pulse Oximetry Oxygen Delivery Oxygen Flow Rate Fraction of Inspired Oxygen 07/26/24 09:11 07/26/24 09:12 07/26/24 09:15 Temperature Pulse Rate 132 H 125 H Respiratory Rate 20 Blood Pressure Pulse Oximetry 95 96 Oxygen Delivery Mechanical Ventilation Mechanical Ventilation Oxygen Flow Rate Fraction of Inspired Oxygen 50 40 07/26/24 10:00 07/26/24 10:00 07/26/24 10:07 Temperature 37.0 C Pulse Rate 140 H 157 H 160 H Respiratory Rate 20 Blood Pressure 141/85 H 141/85 H Pulse Oximetry 98 Oxygen Delivery Oxygen Flow Rate Fraction of Inspired Oxygen 07/26/24 11:13 07/26/24 11:17 07/26/24 11:28 Temperature Pulse Rate 125 H 123 H 151 H Respiratory Rate 32 H 29 H Blood Pressure 147/68 H Pulse Oximetry Oxygen Delivery Oxygen Flow Rate Fraction of Inspired Oxygen 07/26/24 12:00 07/26/24 12:00 07/26/24 12:00 Temperature 37.4 C Pulse Rate 100 97 Respiratory Rate 20 Blood Pressure 106/49 L Pulse Oximetry 95 Oxygen Delivery Oxygen Flow Rate Fraction of Inspired Oxygen 40 07/26/24 12:00 07/26/24 12:06 07/26/24 12:31 Temperature Pulse Rate 57 L 104 H 97 Respiratory Rate 20 Blood Pressure 100/37 L Pulse Oximetry 96 96 Oxygen Delivery Mechanical Ventilation Mechanical Ventilation Oxygen Flow Rate Fraction of Inspired Oxygen 40 40 07/26/24 12:31 07/26/24 14:31 07/26/24 14:31 Temperature Pulse Rate 98 100 97 Respiratory Rate 20 20 Blood Pressure 107/58 L Pulse Oximetry Oxygen Delivery Oxygen Flow Rate Fraction of Inspired Oxygen 07/26/24 14:50 Temperature Pulse Rate 124 H Respiratory Rate Blood Pressure Pulse Oximetry 95 Oxygen Delivery Mechanical Ventilation Oxygen Flow Rate Fraction of Inspired Oxygen 40 Exam Narrative: General: intubated and sedated, no acute distress Neck: Supple, JVD + Chest: Bilaterally clear to auscultation, no rales or rhonchi Cardiac: S1, S2 +, irregular rate and rhythm, no murmurs or rubs Extremities: Bilateral lower extremity edema 1+, no skin rash Neurologic: Intubated and sedated Results Labs and Meds 07/28/24 05:41 07/28/24 05:41 Lab results: Cardiac Enzymes 07/25/24 Range/Units 20:46 AST 27 (14-36) U/L Coagulation 07/25/24 Range/Units 20:46 PT 14.0 (11.1-14.7) Seconds APTT 37.0 H (22.3-36.8) Seconds Lipids 07/26/24 Range/Units 08:52 Triglycerides 103 (<150) mg/dL CBC 07/25/24 07/26/24 Range/Units 20:46 08:52 WBC 12.2 H 8.9 (4.5-10.0) K/mm3 RBC 3.43 L 3.46 L (4.2-5.4) M/mm3 Hgb 10.8 L 10.9 L (12.0-15.0) g/dL Hct 35.5 L 35.0 L (37.0-47.0) % Plt Count 216 175 (150-375) k/mm3 Lymph # (Auto) 0.55 L 0.86 L (0.9-3.2) K/mm3 [place] # (Auto) 0.5 0.7 H (0.1-0.6) K/mm3 Eos # (Auto) 0.0 0.0 (0-0.3) K/mm3 Baso # (Auto) 0.0 0.0 (0.0-0.1) K/mm3 Comprehensive Metabolic Panel 07/25/24 07/26/24 Range/Units 20:46 08:52 Sodium 135 L 136 L (137-145) mmol/L Potassium 4.7 3.9 (3.4-5.0) mmol/L Chloride 100 105 (98-107) mmol/L Carbon Dioxide 30 27 (22-30) mmol/L BUN 17 14 (7-17) mg/dL Creatinine 0.78 0.71 (0.7-1.0) mg/dL Glucose 286 H 189 H (65-110) mg/dL Calcium 8.3 L 7.7 L (8.4-10.2) mg/dL AST 27 (14-36) U/L ALT 21 (6-35) U/L Alkaline Phosphatase 98 (38-126) U/L Total Protein 7.0 (6.3-8.2) g/dL Albumin 3.1 L (3.5-5.1) g/dL Intake and Output 07/25/24 07/26/24 07/26/24 23:59 07:59 15:59 Intake Total 0.4 549.1 84.1 Output Total 360 Balance 0.4 189.1 84.1 Intake: IV 0.4 549.1 84.1 Fentanyl 2,500Mcg/Sw662ut(*Crx 27.2 14.7 2,500 mcg In 250 ml @ 50 MCG/HR 5 mls/hr IV CONT .Q50H STA Rx# :[id number] Midazolam 100Mg/Ns 100Ml(*Crx) 0.4 21.9 11.7 100 mg In 100 ml @ 4 MG/HR 4 mls/hr IV CONT .Q25H STA Rx#: [id number] Propofol IV Emulsion 100 ml @ 24.2 10 MCG/KG/MIN 4.596 mls/hr IV CONT .[id number] TYREL Rx#:[id number] Sodium Chloride 0.9% IV 400 ml 400 @ 999 mls/hr IV CONT .Q25M STA Rx#:[id number] dilTIAZem 100 MG/100 ML 100 mg 33.5 In 100 ml @ 5 MG/HR 5 mls/hr IV CONT .Q20H TYREL Rx#:[id number] Meropenem 1 gm/Ns 100 ml 1 gm 100 In 100 ml @ 200 mls/hr IVPB ONCE ONE Rx#:[id number] Output: Catheter Urine 250 Urethral Catheter 250 Gastric Drainage 110 [place] Sump Oral 110 Patient Weight 07/26/24 23:59 Weight 76.6 kg
--- NOTE | 2024-07-26 16:45 | PM.IMPN ---
Progress Note: A&P Assessment and Plan (1) Type 2 diabetes mellitus with hypoglycemia and coma, with long-term current use of insulin: Code(s): E11.641 - Type 2 diabetes mellitus with hypoglycemia with coma; Z79.4 - termite helper (current) use of insulin Status: Acute (2) Acute respiratory failure with hypoxia: Code(s): J96.01 - Acute respiratory failure with hypoxia Status: Acute (3) Acute UTI: Code(s): N39.0 - Urinary tract infection, site not specified Status: Acute (4) Altered mental status: Qualifiers: Altered mental status type: coma Coma depth: Garry coma 3-8 Coma timing: at hospital admission Qualified Code(s): R40.2433 - [place] coma scale score 3-8, at hospital admission Code(s): R41.82 - Altered mental status, unspecified Status: Acute (5) Pleural effusion: Code(s): J90 - Pleural effusion, not elsewhere classified Status: Acute Plan Severe hypoglycemia due to insulin use and likely associated decreased oral intake. Patient had profound persistent hypoglycemia despite glucose administration in had recurrence of hypoglycemia. Subsequently D5 W was started at 75 mL an hour. Will continue to check hourly Accu-Cheks until stabilized. The patient does have a classical coma Scale of 6 likely resultant encephalopathy from suspected hypoglycemic seizure given injury to the patient's tongue. There is likely some postictal state and some residual encephalopathy from hypoglycemia. CT of the head did not demonstrated any acute intercranial process. The patient has become a little bit more responsive and subsequently has required some sedation with fentanyl and Versed. The patient did have associated acute hypoxic respiratory failure due to the above factors requiring intubation. Initial ventilator settings were AC/CMV tidal volume 340 rate of 18 peep of 5 repeat ABG did demonstrate mild respiratory acidosis with hypercapnia. Subsequently tidal volume was increased to 360. Daily chest x-ray has been ordered. When the patient's history of COPD and in the setting of acquired intubation will place patient on scheduled nebulizer treatment. Patient has UA suggestive of UTI and had a low-grade fever with associated tachypnea and leukocytosis patient does fit sepsis criteria without evidence of septic shock. Patient was started on broad-spectrum antibiotics with meropenem. Blood cultures and urine cultures have been obtained. Patient's CT of the chest also demonstrated findings with possible underlying pneumonia given development of hypoxic respiratory failure and suspected seizure pneumonia/aspiration pneumonitis cannot be ruled out. Will broaden antibiotic coverage with azithromycin and vancomycin. Will obtain sputum culture. Will repeat CBC and electrolyte panel. Patient does have pleural effusion moderate in nature likely associated with pneumonia. CHF less likely given the patient had echocardiogram with normal systolic function and normal diastolic function in April of this year. She did have some mild pulmonary hypertension. Given the patient's underlying history of COPD in the setting of underlying pneumonia. Subjective Date/time seen: 07/26/24 16:45 Interval history: Unresponsive H&P-Narrative: 74-year-old female with a past medical history insulin-dependent diabetes mellitus, essential hypertension, paroxysmal atrial fibrillation, hyperlipidemia chronic inhaled nicotine use, COPD with history of prior respiratory failure, pulmonary hypertension and chronic anemia among other chronic comorbidities who presented to the ER after being found unresponsive at home. The patient's daughter reports that see you last solid patient while before 16:30 on the 6. Daughter reported that she left to go to a ball game when she came home her mother was asleep. Daughter than got up and went to work the next day and when she came home from work around 630 p.m. she found the patient unresponsive and called EMS. EMS reported that the patient's initial blood sugar on arrival to the scene was 23 with a repeat reading of 36. Patient was given 1 dose of glucose on with no improvement in glucose in the patient was brought into the ER for evaluation. Patient was maintaining O2 sats on room air with the sats in the low 90s. The patient was unarousable and snoring in triage in repeat glucose at that time was 11. Patient had a right femoral central line placed AMS could not obtain IV access and patient received an amp of D50 with repeat glucose on BMP of 286. However patient did trend back down within 3 hours down to 49. Patient did spike a fever after arrival to the ER and UA was suggestive of UTI. The patient remained obtunded despite improved blood sugars and she had evidence of bruising to the tongue suggesting recent seizure. The patient was subsequently intubated for airway protection. Patient also was having hypoxia on 15 L non-rebreather with sats down to 79% ABG 1 hour after intubation with an settings AC/CMP tidal volume of 340 peep of 5 rate of 18 and 50% FiO2 demonstrated pH of 7.37 pCO2 of 41.9 and PO2 of 72. Patient's urine was suggestive of UTI patient was started on meropenem. Blood cultures were obtained and are pending. CT of the head demonstrated no acute intercranial process. patient remains on ventilator, seen by fuse spooler and neurologist suspect metabolic encephalopathy 2/2 hypoglycemia resulting in seizure and unresponsiveness, patient was given IVF and glucose, and her blood sugars now trending up and close to normal Review of Systems Review of Systems: ROS unobtainable: Yes unobtainable due to endotracheal tube Exam Narrative: Patient is comfortable, NAD HEENT: ET tube in place LUNGS:CTA HEART: RR S1S2 ABD: BS+, Soft and nontender Lower extremities: no edema SKIN: nonjaundiced Neuro: On vent and sedated Objective Data Vital Signs Vital Signs: Vital Signs - 24 hr 07/25/24 19:57 07/25/24 20:05 07/25/24 20:30 Temperature 35.9 C L Pulse Rate 61 69 Respiratory Rate 23 H Blood Pressure 105/77 Pulse Oximetry 80 L 97 Oxygen Delivery Nasal Cannula Non-Rebreather Mask Oxygen Flow Rate 6 15 Fraction of Inspired Oxygen 07/25/24 21:19 07/25/24 21:30 07/25/24 21:33 Temperature 37.6 C 37.6 C H Pulse Rate 71 68 Respiratory Rate 20 21 H Blood Pressure 112/91 H Pulse Oximetry 100 99 100 Oxygen Delivery Non-Rebreather Mask Oxygen Flow Rate 15 Fraction of Inspired Oxygen 07/25/24 21:45 07/25/24 21:48 07/25/24 22:00 Temperature 37.7 C H 37.7 C H 37.8 C H Pulse Rate 70 76 77 Respiratory Rate 22 H 21 H 20 Blood Pressure 106/92 H Pulse Oximetry 98 100 97 Oxygen Delivery Oxygen Flow Rate Fraction of Inspired Oxygen 07/25/24 22:01 07/25/24 22:15 07/25/24 22:18 Temperature 37.8 C H 37.9 C H 37.3 C Pulse Rate 80 80 76 Respiratory Rate 21 H 22 H 20 Blood Pressure 116/103 H 133/95 H Pulse Oximetry 98 99 96 Oxygen Delivery Oxygen Flow Rate Fraction of Inspired Oxygen 07/25/24 22:18 07/25/24 22:25 07/25/24 22:25 Temperature 37.9 C H Pulse Rate 85 112 H 112 H Respiratory Rate 21 H 26 H Blood Pressure 133/95 H Pulse Oximetry 94 95 98 Oxygen Delivery Mechanical Ventilation Mechanical Ventilation Oxygen Flow Rate Fraction of Inspired Oxygen 80 80 07/25/24 22:30 07/25/24 22:31 07/25/24 22:33 Temperature 37.9 C H 37.9 C H 37.9 C H Pulse Rate 82 81 85 Respiratory Rate 14 17 17 Blood Pressure 160/68 H 160/68 H Pulse Oximetry 100 100 95 Oxygen Delivery Oxygen Flow Rate Fraction of Inspired Oxygen 07/25/24 22:45 07/25/24 22:46 07/25/24 22:49 Temperature 38.0 C H 38.1 C H Pulse Rate 81 79 84 Respiratory Rate 18 20 20 Blood Pressure 143/43 H Pulse Oximetry Oxygen Delivery Oxygen Flow Rate Fraction of Inspired Oxygen 07/25/24 22:54 07/25/24 23:00 07/25/24 23:01 Temperature 38.1 C H 38.1 C H Pulse Rate 84 80 80 Respiratory Rate 23 H 22 H 26 H Blood Pressure 111/91 H Pulse Oximetry 100 99 Oxygen Delivery Oxygen Flow Rate Fraction of Inspired Oxygen 07/25/24 23:15 07/25/24 23:16 07/25/24 23:17 Temperature 38.1 C H 38.1 C H Pulse Rate 83 84 83 Respiratory Rate 28 H 28 H 24 H Blood Pressure 150/104 H Pulse Oximetry 97 97 Oxygen Delivery Oxygen Flow Rate Fraction of Inspired Oxygen 07/25/24 23:30 07/25/24 23:32 07/25/24 23:43 Temperature 38.1 C H 38.1 C H 38.1 C H Pulse Rate 82 82 76 Respiratory Rate 25 H 24 H 23 H Blood Pressure 136/62 124/80 Pulse Oximetry 79 L 97 96 Oxygen Delivery Oxygen Flow Rate Fraction of Inspired Oxygen 07/26/24 00:30 07/26/24 00:51 07/26/24 01:15 Temperature 37.8 C H Pulse Rate 79 82 Respiratory Rate 21 H 20 Blood Pressure 106/60 Pulse Oximetry 97 97 Oxygen Delivery Mechanical Ventilation Oxygen Flow Rate Fraction of Inspired Oxygen 50 07/26/24 01:29 07/26/24 02:00 07/26/24 02:00 Temperature Pulse Rate 78 80 80 Respiratory Rate 21 H 21 H Blood Pressure Pulse Oximetry 92 Oxygen Delivery Mechanical Ventilation Oxygen Flow Rate Fraction of Inspired Oxygen 80 07/26/24 02:00 07/26/24 02:00 07/26/24 02:21 Temperature 37.4 C Pulse Rate 80 80 81 Respiratory Rate 21 H 23 H Blood Pressure 134/48 L Pulse Oximetry 91 Oxygen Delivery Oxygen Flow Rate Fraction of Inspired Oxygen 07/26/24 03:00 07/26/24 04:00 07/26/24 04:00 Temperature Pulse Rate 84 Respiratory Rate 23 H Blood Pressure Pulse Oximetry 95 Oxygen Delivery Mechanical Ventilation Oxygen Flow Rate Fraction of Inspired Oxygen 50 50 07/26/24 04:00 07/26/24 04:00 07/26/24 04:00 Temperature 37.3 C Pulse Rate 64 65 65 Respiratory Rate 17 17 Blood Pressure 135/46 L Pulse Oximetry 95 Oxygen Delivery Oxygen Flow Rate Fraction of Inspired Oxygen 07/26/24 04:00 07/26/24 05:24 07/26/24 06:00 Temperature 37.2 C Pulse Rate 65 80 58 L Respiratory Rate 17 18 Blood Pressure 137/45 L Pulse Oximetry 93 95 Oxygen Delivery Mechanical Ventilation Oxygen Flow Rate Fraction of Inspired Oxygen 80 07/26/24 06:00 07/26/24 06:00 07/26/24 06:00 Temperature Pulse Rate 58 L 58 L 58 L Respiratory Rate 18 18 Blood Pressure Pulse Oximetry Oxygen Delivery Oxygen Flow Rate Fraction of Inspired Oxygen 07/26/24 08:00 07/26/24 08:00 07/26/24 08:00 Temperature 37.0 C Pulse Rate 57 L 57 L Respiratory Rate 17 Blood Pressure 118/41 L Pulse Oximetry 98 Oxygen Delivery Oxygen Flow Rate Fraction of Inspired Oxygen 40 07/26/24 08:00 07/26/24 08:25 07/26/24 08:56 Temperature Pulse Rate 57 L 61 140 H Respiratory Rate 20 Blood Pressure Pulse Oximetry 96 98 Oxygen Delivery Mechanical Ventilation Mechanical Ventilation Oxygen Flow Rate Fraction of Inspired Oxygen 40 50 07/26/24 08:56 07/26/24 08:56 07/26/24 09:01 Temperature Pulse Rate 160 H 160 H 135 H Respiratory Rate 22 H 22 H 22 H Blood Pressure Pulse Oximetry Oxygen Delivery Oxygen Flow Rate Fraction of Inspired Oxygen 07/26/24 09:11 07/26/24 09:12 07/26/24 09:15 Temperature Pulse Rate 132 H 125 H Respiratory Rate 20 Blood Pressure Pulse Oximetry 95 96 Oxygen Delivery Mechanical Ventilation Mechanical Ventilation Oxygen Flow Rate Fraction of Inspired Oxygen 50 40 07/26/24 10:00 07/26/24 10:00 07/26/24 10:07 Temperature 37.0 C Pulse Rate 140 H 157 H 160 H Respiratory Rate 20 Blood Pressure 141/85 H 141/85 H Pulse Oximetry 98 Oxygen Delivery Oxygen Flow Rate Fraction of Inspired Oxygen 07/26/24 11:13 07/26/24 11:17 07/26/24 11:28 Temperature Pulse Rate 125 H 123 H 151 H Respiratory Rate 32 H 29 H Blood Pressure 147/68 H Pulse Oximetry Oxygen Delivery Oxygen Flow Rate Fraction of Inspired Oxygen 07/26/24 12:00 07/26/24 12:00 07/26/24 12:00 Temperature 37.4 C Pulse Rate 100 97 Respiratory Rate 20 Blood Pressure 106/49 L Pulse Oximetry 95 Oxygen Delivery Oxygen Flow Rate Fraction of Inspired Oxygen 40 07/26/24 12:00 07/26/24 12:06 07/26/24 12:31 Temperature Pulse Rate 57 L 104 H 97 Respiratory Rate 20 Blood Pressure 100/37 L Pulse Oximetry 96 96 Oxygen Delivery Mechanical Ventilation Mechanical Ventilation Oxygen Flow Rate Fraction of Inspired Oxygen 40 40 07/26/24 12:31 07/26/24 14:31 07/26/24 14:31 Temperature Pulse Rate 98 100 97 Respiratory Rate 20 20 Blood Pressure 107/58 L Pulse Oximetry Oxygen Delivery Oxygen Flow Rate Fraction of Inspired Oxygen 07/26/24 14:50 Temperature Pulse Rate 124 H Respiratory Rate Blood Pressure Pulse Oximetry 95 Oxygen Delivery Mechanical Ventilation Oxygen Flow Rate Fraction of Inspired Oxygen 40 Intake/Output Intake/Output: Intake & Output 07/23/24 07/24/24 07/25/24 07/26/24 23:59 23:59 23:59 23:59 Intake Total 0.4 633.2 Output Total 360 Balance 0.4 273.2 Meds/Results Medications: Active Medications Generic Name Dose Route Start Last Admin Trade Name Freq PRN Reason Stop Dose Admin Albuterol 5 mg 07/26/24 10:06 Albuterol Sulfate Neb 2.5 Mg/3 Ml Inh INHALATION Q6HRT PRN Wheezing Apixaban 5 mg 07/26/24 09:00 07/26/24 08:38 Apixaban 5 Mg Tablet FEED TUBE 5 mg Q12HR TYREL Administration Dextrose 12.5 gm 07/26/24 08:45 Dextrose 50% 25 Gm/50 Ml Syringe IV PUSH PRN PRN Hypoglycemia Protocol Glucagon 1 mg 07/26/24 08:45 Glucagon For Inj 1 Mg Vial IM PRN PRN Hypoglycemia Protocol Glucose 15 gm 07/26/24 08:45 Glucose Oral Gel 15 Gm Of Glucse In 37.5 Gm Tube PO PRN PRN Hypoglycemia Protocol Meropenem 1 gm in 100 mls @ 200 mls/hr 07/26/24 06:00 07/26/24 06:19 IVPB 200 mls/hr Q8HR TYREL Administration Dextrose 1,000 mls @ 100 mls/hr 07/26/24 08:45 Dextrose 5% 1,000 Ml IVPB PRN PRN Hypoglycemia Protocol Vancomycin HCl 1,500 mg in 500 mls @ 250 mls/hr 07/27/24 08:00 Vancomycin 1,500 Mg/Ns 500 Ml IVPB Q24H TYREL Diltiazem HCl 100 mg in 100 mls @ 7.5 mls/hr 07/26/24 10:00 07/26/24 14:31 Cardizem 100 Mg/100 Ml IV CONT 7.5 mg/hr .[id number] TYREL 7.5 mls/hr Titration Protocol 7.5 MG/HR Dextrose/Sodium Chloride 1,000 mls @ 30 mls/hr 07/26/24 10:05 07/26/24 10:27 Dextrose 5% Sodium Chloride 0.9% IV CONT 75 mls/hr .Q24H TYREL Administration Propofol 100 mls @ 6.894 mls/hr 07/26/24 11:15 07/26/24 14:31 Diprivan IV CONT 15 mcg/kg/min .[id number] TYREL 6.89 mls/hr Titration Protocol 15 MCG/KG/MIN Ipratropium Mccurtain 0.5 mg 07/26/24 10:06 Ipratropium Br 0.02% Inh Soln 0.5 Mg/2.5 Ml Vial INHALATION Q6HRT PRN Wheezing Methylprednisolone Sodium Succinate 80 mg 07/26/24 10:05 07/26/24 10:30 Methylprednisolone Sod Succ 125 Mg Vial IV PUSH 80 mg QAM TYREL Administration Multi-Ingred Cream/Lotion/Oil/Oint 1 applic 07/26/24 21:00 Mineral Oil/White Petrolatum Ointment EACH EYE Q12HR TYREL Pantoprazole Sodium 40 mg 07/26/24 09:00 07/26/24 08:38 Pantoprazole Sodium Iv 40 Mg Vial IV PUSH 40 mg DAILY TYREL Administration Sotalol HCl 80 mg 07/26/24 09:00 07/26/24 09:15 Sotalol Hcl 80 Mg Tablet FEED TUBE 80 mg Q12HR TYREL Administration Radiology Results: ITS Impressions Head CT 07/25/24 21:08 Impression: No large acute intracranial hemorrhage or suspicious mass effect. Abdomen X-Ray 07/25/24 22:47 IMPRESSION: Endotracheal tube in good radiographic position. Orogastric tube in good position, and ready for immediate use. Redemonstration of a left upper lobe infiltrate, now with mild to moderate pulmonary vascular congestion Chest CT 07/26/24 05:14 Impression: Moderate left pleural effusion is increased from prior exam. Minimal right pleural effusion. Extensive presumed atelectatic changes in the left lower lobe and left upper lobe/lingula with mild right basilar atelectasis. Correlate clinically for pulmonary edema or pneumonia. Stable irregular airspace consolidation left lung apex, suggestive of chronic scarring or postinflammatory change. Correlate for acute pneumonia. Chest X-Ray 07/26/24 05:30 Impression: Stable support tubes. Stable left perihilar and right suprahilar consolidation. Correlate for bilateral pneumonia. Venous Doppler Study 07/26/24 11:15 IMPRESSION: 1: No lower extremity deep venous thrombosis. Labs Labs: Laboratory Results - last 24 hr 07/25/24 07/25/24 07/25/24 20:15 20:42 20:46 WBC 12.2 H RBC 3.43 L Hgb 10.8 L Hct 35.5 L MCV 103.5 H MCH 31.5 MCHC 30.4 L RDW 15.3 H Plt Count 216 MPV 10.5 H Immature Gran % (Auto) 0.3 Neut % (Auto) 91.0 H Lymph % (Auto) 4.5 L [place] % (Auto) 3.9 Eos % (Auto) 0.1 Baso % (Auto) 0.2 Lymph # (Auto) 0.55 L [place] # (Auto) 0.5 Eos # (Auto) 0.0 Baso # (Auto) 0.0 Abs Immat Gran (auto) 0.04 H Absolute Neuts (auto) 11.1 H Absolute Nucleated RBC 0.000 Nucleated RBC % 0.0 PT 14.0 INR 1.0 APTT 37.0 H Puncture Site ABG pH ABG pCO2 ABG pO2 ABG PO2/FiO2 Ratio ABG HCO3 ABG O2 Saturation ABG O2 Content ABG Base Excess A-a Gradient Oxyhemoglobin Carboxyhemoglobin Methemoglobin Reduced Hemoglobin Total Hemoglobin O2 Delivery Device O2 Liters/Min Minute Volume Vent Rate Vent Mode FiO2 Tidal Volume PEEP Peak Inspir Pressure Pressure Support Sodium 135 L Potassium 4.7 Chloride 100 Carbon Dioxide 30 Anion Gap 5 BUN 17 Creatinine 0.78 Estim Creat Clear Calc Not Reportable Estimated GFR > 60 Glucose 286 H POC Capillary Glucose < 20 L* 121 H Lactic Acid 1.2 Calcium 8.3 L Total Bilirubin 0.4 AST 27 ALT 21 Alkaline Phosphatase 98 Ammonia Total Creatine Kinase Total Protein 7.0 Albumin 3.1 L Triglycerides Procalcitonin 0.1 TSH (Reflex) Urine Color Yellow Urine Appearance Cloudy H Urine pH 5.0 Ur Specific [place] 1.016 Urine Protein 1+ H Urine Glucose (UA) 1+ H Urine Ketones Negative Ur Blood (Man) 2+ H Urine Nitrate Positive H Urine Bilirubin Negative Urine Urobilinogen 0.2 Add Ur Microanalysis Reviewed Leukocyte Esterase Rfl 3+ H Urine RBC 0-2 Urine WBC >100 H Urine WBC Clumps Present H Ur Squamous Epith Cells None seen Urine Bacteria 4+ H Urine Casts 3-5 Hyaline Casts Present Nasal MRSA (PCR) Urine Opiates Screen Urine Methadone Screen Ur Barbiturates Screen Ur Phencyclidine Scrn Ur Amphetamine Screen U Benzodiazepines Scrn Urine Cocaine Screen U Cannabinoids Screen Ethyl Alcohol < 10 Influenza A (RT-PCR) Influenza B (RT-PCR) RSV (RT-PCR) SARS-CoV-2 RNA (RT-PCR) 07/25/24 07/25/24 07/25/24 21:10 21:13 21:27 WBC RBC Hgb Hct MCV MCH MCHC RDW Plt Count MPV Immature Gran % (Auto) Neut % (Auto) Lymph % (Auto) [place] % (Auto) Eos % (Auto) Baso % (Auto) Lymph # (Auto) [place] # (Auto) Eos # (Auto) Baso # (Auto) Abs Immat Gran (auto) Absolute Neuts (auto) Absolute Nucleated RBC Nucleated RBC % PT INR APTT Puncture Site Right radial ABG pH 7.354 ABG pCO2 47.0 H ABG pO2 64.7 L ABG PO2/FiO2 Ratio 0.65 ABG HCO3 25.6 ABG O2 Saturation 91.7 L ABG O2 Content Not Reportable ABG Base Excess -0.4 A-a Gradient 601.3 Oxyhemoglobin Not Reportable Carboxyhemoglobin Not Reportable Methemoglobin Not Reportable Reduced Hemoglobin Not Reportable Total Hemoglobin Not Reportable O2 Delivery Device Non-rebreather mask O2 Liters/Min 15.0 Minute Volume Vent Rate Vent Mode FiO2 100 Tidal Volume PEEP Peak Inspir Pressure Pressure Support Sodium Potassium Chloride Carbon Dioxide Anion Gap BUN Creatinine Estim Creat Clear Calc Estimated GFR Glucose POC Capillary Glucose 124 H Lactic Acid Calcium Total Bilirubin AST ALT Alkaline Phosphatase Ammonia Total Creatine Kinase Total Protein Albumin Triglycerides Procalcitonin TSH (Reflex) Urine Color Urine Appearance Urine pH Ur Specific [place] Urine Protein Urine Glucose (UA) Urine Ketones Ur Blood (Man) Urine Nitrate Urine Bilirubin Urine Urobilinogen Add Ur Microanalysis Leukocyte Esterase Rfl Urine RBC Urine WBC Urine WBC Clumps Ur Squamous Epith Cells Urine Bacteria Urine Casts Hyaline Casts Nasal MRSA (PCR) Urine Opiates Screen Negative Urine Methadone Screen Negative Ur Barbiturates Screen Negative Ur Phencyclidine Scrn Negative Ur Amphetamine Screen Negative U Benzodiazepines Scrn Negative Urine Cocaine Screen Negative U Cannabinoids Screen Negative Ethyl Alcohol Influenza A (RT-PCR) Influenza B (RT-PCR) RSV (RT-PCR) SARS-CoV-2 RNA (RT-PCR) 07/25/24 07/25/24 07/26/24 22:30 23:16 00:06 WBC RBC Hgb Hct MCV MCH MCHC RDW Plt Count MPV Immature Gran % (Auto) Neut % (Auto) Lymph % (Auto) [place] % (Auto) Eos % (Auto) Baso % (Auto) Lymph # (Auto) [place] # (Auto) Eos # (Auto) Baso # (Auto) Abs Immat Gran (auto) Absolute Neuts (auto) Absolute Nucleated RBC Nucleated RBC % PT INR APTT Puncture Site Right radial ABG pH 7.379 ABG pCO2 41.9 ABG pO2 72.3 L ABG PO2/FiO2 Ratio 1.45 ABG HCO3 24.2 ABG O2 Saturation 94.3 L ABG O2 Content Not Reportable ABG Base Excess -1.0 A-a Gradient 237.1 Oxyhemoglobin Not Reportable Carboxyhemoglobin Not Reportable Methemoglobin Not Reportable Reduced Hemoglobin Not Reportable Total Hemoglobin Not Reportable O2 Delivery Device Ventilator O2 Liters/Min Not Reportable Minute Volume Not Reportable Vent Rate 18 Vent Mode Cmv FiO2 50 Tidal Volume 340 PEEP 5 Peak Inspir Pressure Not Reportable Pressure Support Not Reportable Sodium Potassium Chloride Carbon Dioxide Anion Gap BUN Creatinine Estim Creat Clear Calc Estimated GFR Glucose POC Capillary Glucose 87 Lactic Acid Calcium Total Bilirubin AST ALT Alkaline Phosphatase Ammonia Total Creatine Kinase Total Protein Albumin Triglycerides Procalcitonin TSH (Reflex) Urine Color Urine Appearance Urine pH Ur Specific [place] Urine Protein Urine Glucose (UA) Urine Ketones Ur Blood (Man) Urine Nitrate Urine Bilirubin Urine Urobilinogen Add Ur Microanalysis Leukocyte Esterase Rfl Urine RBC Urine WBC Urine WBC Clumps Ur Squamous Epith Cells Urine Bacteria Urine Casts Hyaline Casts Nasal MRSA (PCR) Urine Opiates Screen Urine Methadone Screen Ur Barbiturates Screen Ur Phencyclidine Scrn Ur Amphetamine Screen U Benzodiazepines Scrn Urine Cocaine Screen U Cannabinoids Screen Ethyl Alcohol Influenza A (RT-PCR) Negative Influenza B (RT-PCR) Negative RSV (RT-PCR) Negative SARS-CoV-2 RNA (RT-PCR) Negative 07/26/24 07/26/24 07/26/24 01:03 01:36 02:33 WBC RBC Hgb Hct MCV MCH MCHC RDW Plt Count MPV Immature Gran % (Auto) Neut % (Auto) Lymph % (Auto) [place] % (Auto) Eos % (Auto) Baso % (Auto) Lymph # (Auto) [place] # (Auto) Eos # (Auto) Baso # (Auto) Abs Immat Gran (auto) Absolute Neuts (auto) Absolute Nucleated RBC Nucleated RBC % PT INR APTT Puncture Site ABG pH ABG pCO2 ABG pO2 ABG PO2/FiO2 Ratio ABG HCO3 ABG O2 Saturation ABG O2 Content ABG Base Excess A-a Gradient Oxyhemoglobin Carboxyhemoglobin Methemoglobin Reduced Hemoglobin Total Hemoglobin O2 Delivery Device O2 Liters/Min Minute Volume Vent Rate Vent Mode FiO2 Tidal Volume PEEP Peak Inspir Pressure Pressure Support Sodium Potassium Chloride Carbon Dioxide Anion Gap BUN Creatinine Estim Creat Clear Calc Estimated GFR Glucose POC Capillary Glucose 49 L* 129 H Lactic Acid Calcium Total Bilirubin AST ALT Alkaline Phosphatase Ammonia Total Creatine Kinase Total Protein Albumin Triglycerides Procalcitonin TSH (Reflex) Urine Color Urine Appearance Urine pH Ur Specific [place] Urine Protein Urine Glucose (UA) Urine Ketones Ur Blood (Man) Urine Nitrate Urine Bilirubin Urine Urobilinogen Add Ur Microanalysis Leukocyte Esterase Rfl Urine RBC Urine WBC Urine WBC Clumps Ur Squamous Epith Cells Urine Bacteria Urine Casts Hyaline Casts Nasal MRSA (PCR) Not detected Urine Opiates Screen Urine Methadone Screen Ur Barbiturates Screen Ur Phencyclidine Scrn Ur Amphetamine Screen U Benzodiazepines Scrn Urine Cocaine Screen U Cannabinoids Screen Ethyl Alcohol Influenza A (RT-PCR) Influenza B (RT-PCR) RSV (RT-PCR) SARS-CoV-2 RNA (RT-PCR) 07/26/24 07/26/24 07/26/24 03:05 04:41 04:53 WBC RBC Hgb Hct MCV MCH MCHC RDW Plt Count MPV Immature Gran % (Auto) Neut % (Auto) Lymph % (Auto) [place] % (Auto) Eos % (Auto) Baso % (Auto) Lymph # (Auto) [place] # (Auto) Eos # (Auto) Baso # (Auto) Abs Immat Gran (auto) Absolute Neuts (auto) Absolute Nucleated RBC Nucleated RBC % PT INR APTT Puncture Site Right radial ABG pH 7.325 L ABG pCO2 54.5 H ABG pO2 76.2 L ABG PO2/FiO2 Ratio 1.52 ABG HCO3 27.8 H ABG O2 Saturation 94.1 L ABG O2 Content Not Reportable ABG Base Excess 0.6 A-a Gradient 219.0 Oxyhemoglobin Not Reportable Carboxyhemoglobin Not Reportable Methemoglobin Not Reportable Reduced Hemoglobin Not Reportable Total Hemoglobin Not Reportable O2 Delivery Device Ventilator O2 Liters/Min Not Reportable Minute Volume Not Reportable Vent Rate 18 Vent Mode Cmv FiO2 50 Tidal Volume 380 PEEP 5 Peak Inspir Pressure Not Reportable Pressure Support Not Reportable Sodium Potassium Chloride Carbon Dioxide Anion Gap BUN Creatinine Estim Creat Clear Calc Estimated GFR Glucose POC Capillary Glucose 138 H 153 H Lactic Acid Calcium Total Bilirubin AST ALT Alkaline Phosphatase Ammonia Total Creatine Kinase Total Protein Albumin Triglycerides Procalcitonin TSH (Reflex) Urine Color Urine Appearance Urine pH Ur Specific [place] Urine Protein Urine Glucose (UA) Urine Ketones Ur Blood (Man) Urine Nitrate Urine Bilirubin Urine Urobilinogen Add Ur Microanalysis Leukocyte Esterase Rfl Urine RBC Urine WBC Urine WBC Clumps Ur Squamous Epith Cells Urine Bacteria Urine Casts Hyaline Casts Nasal MRSA (PCR) Urine Opiates Screen Urine Methadone Screen Ur Barbiturates Screen Ur Phencyclidine Scrn Ur Amphetamine Screen U Benzodiazepines Scrn Urine Cocaine Screen U Cannabinoids Screen Ethyl Alcohol Influenza A (RT-PCR) Influenza B (RT-PCR) RSV (RT-PCR) SARS-CoV-2 RNA (RT-PCR) 07/26/24 07/26/24 07/26/24 08:46 08:52 10:23 WBC 8.9 RBC 3.46 L Hgb 10.9 L Hct 35.0 L MCV 101.2 H MCH 31.5 MCHC 31.1 L RDW 15.2 H Plt Count 175 MPV 10.3 Immature Gran % (Auto) 0.3 Neut % (Auto) 81.6 H Lymph % (Auto) 9.6 L [place] % (Auto) 8.1 Eos % (Auto) 0.1 Baso % (Auto) 0.3 Lymph # (Auto) 0.86 L [place] # (Auto) 0.7 H Eos # (Auto) 0.0 Baso # (Auto) 0.0 Abs Immat Gran (auto) 0.03 Absolute Neuts (auto) 7.3 H Absolute Nucleated RBC 0.000 Nucleated RBC % 0.0 PT INR APTT Puncture Site ABG pH ABG pCO2 ABG pO2 ABG PO2/FiO2 Ratio ABG HCO3 ABG O2 Saturation ABG O2 Content ABG Base Excess A-a Gradient Oxyhemoglobin Carboxyhemoglobin Methemoglobin Reduced Hemoglobin Total Hemoglobin O2 Delivery Device O2 Liters/Min Minute Volume Vent Rate Vent Mode FiO2 Tidal Volume PEEP Peak Inspir Pressure Pressure Support Sodium 136 L Potassium 3.9 Chloride 105 Carbon Dioxide 27 Anion Gap 4 BUN 14 Creatinine 0.71 Estim Creat Clear Calc 58 Estimated GFR > 60 Glucose 189 H POC Capillary Glucose 147 H 162 H Lactic Acid Calcium 7.7 L Total Bilirubin AST ALT Alkaline Phosphatase Ammonia Total Creatine Kinase 162 H Total Protein Albumin Triglycerides 103 Procalcitonin TSH (Reflex) Urine Color Urine Appearance Urine pH Ur Specific [place] Urine Protein Urine Glucose (UA) Urine Ketones Ur Blood (Man) Urine Nitrate Urine Bilirubin Urine Urobilinogen Add Ur Microanalysis Leukocyte Esterase Rfl Urine RBC Urine WBC Urine WBC Clumps Ur Squamous Epith Cells Urine Bacteria Urine Casts Hyaline Casts Nasal MRSA (PCR) Urine Opiates Screen Urine Methadone Screen Ur Barbiturates Screen Ur Phencyclidine Scrn Ur Amphetamine Screen U Benzodiazepines Scrn Urine Cocaine Screen U Cannabinoids Screen Ethyl Alcohol Influenza A (RT-PCR) Influenza B (RT-PCR) RSV (RT-PCR) SARS-CoV-2 RNA (RT-PCR) 07/26/24 07/26/2407/26/25 10:33 11:56 12:39 WBC RBC Hgb Hct MCV MCH MCHC RDW Plt Count MPV Immature Gran % (Auto) Neut % (Auto) Lymph % (Auto) [place] % (Auto) Eos % (Auto) Baso % (Auto) Lymph # (Auto) [place] # (Auto) Eos # (Auto) Baso # (Auto) Abs Immat Gran (auto) Absolute Neuts (auto) Absolute Nucleated RBC Nucleated RBC % PT INR APTT Puncture Site ABG pH ABG pCO2 ABG pO2 ABG PO2/FiO2 Ratio ABG HCO3 ABG O2 Saturation ABG O2 Content ABG Base Excess A-a Gradient Oxyhemoglobin Carboxyhemoglobin Methemoglobin Reduced Hemoglobin Total Hemoglobin O2 Delivery Device O2 Liters/Min Minute Volume Vent Rate Vent Mode FiO2 Tidal Volume PEEP Peak Inspir Pressure Pressure Support Sodium Potassium Chloride Carbon Dioxide Anion Gap BUN Creatinine Estim Creat Clear Calc Estimated GFR Glucose POC Capillary Glucose 228 H 214 H Lactic Acid Calcium Total Bilirubin AST ALT Alkaline Phosphatase Ammonia < 9 L Total Creatine Kinase Total Protein Albumin Triglycerides Procalcitonin TSH (Reflex) 1.380 Urine Color Urine Appearance Urine pH Ur Specific [place] Urine Protein Urine Glucose (UA) Urine Ketones Ur Blood (Man) Urine Nitrate Urine Bilirubin Urine Urobilinogen Add Ur Microanalysis Leukocyte Esterase Rfl Urine RBC Urine WBC Urine WBC Clumps Ur Squamous Epith Cells Urine Bacteria Urine Casts Hyaline Casts Nasal MRSA (PCR) Urine Opiates Screen Urine Methadone Screen Ur Barbiturates Screen Ur Phencyclidine Scrn Ur Amphetamine Screen U Benzodiazepines Scrn Urine Cocaine Screen U Cannabinoids Screen Ethyl Alcohol Influenza A (RT-PCR) Influenza B (RT-PCR) RSV (RT-PCR) SARS-CoV-2 RNA (RT-PCR) 07/26/24 15:02 WBC RBC Hgb Hct MCV MCH MCHC RDW Plt Count MPV Immature Gran % (Auto) Neut % (Auto) Lymph % (Auto) [place] % (Auto) Eos % (Auto) Baso % (Auto) Lymph # (Auto) [place] # (Auto) Eos # (Auto) Baso # (Auto) Abs Immat Gran (auto) Absolute Neuts (auto) Absolute Nucleated RBC Nucleated RBC % PT INR APTT Puncture Site ABG pH ABG pCO2 ABG pO2 ABG PO2/FiO2 Ratio ABG HCO3 ABG O2 Saturation ABG O2 Content ABG Base Excess A-a Gradient Oxyhemoglobin Carboxyhemoglobin Methemoglobin Reduced Hemoglobin Total Hemoglobin O2 Delivery Device O2 Liters/Min Minute Volume Vent Rate Vent Mode FiO2 Tidal Volume PEEP Peak Inspir Pressure Pressure Support Sodium Potassium Chloride Carbon Dioxide Anion Gap BUN Creatinine Estim Creat Clear Calc Estimated GFR Glucose POC Capillary Glucose 211 H Lactic Acid Calcium Total Bilirubin AST ALT Alkaline Phosphatase Ammonia Total Creatine Kinase Total Protein Albumin Triglycerides Procalcitonin TSH (Reflex) Urine Color Urine Appearance Urine pH Ur Specific [place] Urine Protein Urine Glucose (UA) Urine Ketones Ur Blood (Man) Urine Nitrate Urine Bilirubin Urine Urobilinogen Add Ur Microanalysis Leukocyte Esterase Rfl Urine RBC Urine WBC Urine WBC Clumps Ur Squamous Epith Cells Urine Bacteria Urine Casts Hyaline Casts Nasal MRSA (PCR) Urine Opiates Screen Urine Methadone Screen Ur Barbiturates Screen Ur Phencyclidine Scrn Ur Amphetamine Screen U Benzodiazepines Scrn Urine Cocaine Screen U Cannabinoids Screen Ethyl Alcohol Influenza A (RT-PCR) Influenza B (RT-PCR) RSV (RT-PCR) SARS-CoV-2 RNA (RT-PCR) Quality VTE Prophylaxis VTE prophylaxis: pharmacologic ordered
[2024-07-26 17:53] LABS: Glucose Point of Care 268 mg/dl (65-105)
[2024-07-26 17:53] LABS: Glucose Point of Care 225 mg/dl (65-105)
[2024-07-26] MEDS: dilTIAZem 100 MG/100 ML 100 MG/100 ML BAG 15 MG IV CONT (18:19)
[2024-07-26 18:51] LABS: Glucose Point of Care 285 mg/dl (65-105)
[2024-07-26] MEDS: PROPOFOL IV EMULSION 100 ML 6.89 MG IV CONT (20:24)
[2024-07-26] MEDS: MINERAL OIL/WHITE PETROLATUM OINTMENT 1 APPLIC EACH EYE (20:28)
[2024-07-26 20:39] LABS: Glucose Point of Care 300 mg/dl (65-105)
[2024-07-26] MEDS: INSULIN ASPART (*BKC) 100 UNITS/ML SUB-Q (20:39)
[2024-07-26] MEDS: CENTRAL LINE FLUSH 10 ML IV PUSH (22:08)
[2024-07-27] VITALS (30 sets, daily range): BP systolic 104–171; BP diastolic 45–85; PULSE 56–137; RESP 17–30; TEMP 37.2–37.9; O2SAT 93–100
--- NOTE | 2024-07-27 | ECHO_ITS ---
Patient Info Name: Edelmira Cardenas Age: 74 years : 1950 Gender: Female Ht: 62 in Wt: 181 lbs BSA: 1.93 m2 HR: 69 bpm BP: 139 / 60 mmHg Heart Rhythm: Sinus Rhythm Technical Quality: Fair Exam Date: 07/27/2024 12:33 PM Exam Location: Echo Lab Patient Status: Inpatient Admit Date: 07/25/2024 Staff Ordering Physician: Mary Beth Archuleta Workday Director: Rosalina Alonso RDCS Attending Provider: Antonia Light DO Referring Physician: Kathe SIFUENTES; Exam Type: CA echo doppler color flow Study Info Indications - Afib Complete two-dimensional, color flow and Doppler transthoracic echocardiogram is performed. Summary 1. Left ventricular chamber dimension is normal. 2. Left ventricular systolic function is normal, estimated at 65-70%. 3. There is moderately increased left ventricular wall thickness. 4. The left ventricular diastolic function is grade I diastolic dysfunction. 5. Right ventricular systolic function is normal. 6. Left atrial chamber dimension is moderately enlarged. 7. There is mild mitral valve regurgitation. 8. There is mild tricuspid valve regurgitation. Left Ventricle Left ventricular chamber dimension is normal. Left ventricular systolic function is normal, estimated at 65-70%. There is moderately increased left ventricular wall thickness. The left ventricular diastolic function is grade I diastolic dysfunction. Right Ventricle Right ventricular chamber dimension is normal. Right ventricular systolic function is normal. Left Atria Left atrial chamber dimension is moderately enlarged. Right Atria Right atrial chamber dimension is normal. Atrial Septum Intact interatrial septum visualized by color flow imaging. Aortic Valve The aortic valve is not well visualized. There is no aortic valve stenosis. There is no aortic valve regurgitation. There is mild aortic valve calcification. Pulmonic Valve The pulmonic valve is not well visualized. Mitral Valve There is mild mitral valve regurgitation. Tricuspid Valve There is mild tricuspid valve regurgitation. Pericardium/Pleural The pericardium appears epicardial fat pad. There is no pericardial effusion. Inferior Vena Cava IVC size is normal. Aorta The aortic root size at the sinus of Valsalva is normal. Left Ventricular Outflow Tract Name Value Normal LVOT 2D LVOT Diameter 2.0 cm LVOT Doppler LVOT Peak Gradient 4 mmHg LVOT Mean Gradient 2 mmHg LVOT VTI 28 cm LVOT VTI/AV VTI Ratio 0.7 LVOT Stroke Volume 83 ml LVOT CO 5.3 l/min LVOT CI 2.8 l/min/m2 Pulmonic Valve Name Value Normal RVOT Doppler RVOT Peak Gradient 2 mmHg PV Doppler PV Peak Gradient 3 mmHg Mitral Valve Name Value Normal MV Doppler MV Decel [place] 515 cm/s2 MV PHT 60 ms MV Area (PHT) 3.7 cm2 4.0-5.0 MV Diastolic Function MV E Peak Velocity 107 cm/s MV A Peak Velocity 89 cm/s MV E/A 1.2 MV Decel Time 207 ms MV Annular TDI MV E/e' (Septal) 16.8 <=8.0 MV E/e' (Lateral) 13.1 <=8.0 MV E/e' (Average) 15.0 Tricuspid Valve Name Value Normal TV Regurgitation Doppler TR Peak Velocity 299 cm/s TR Peak Gradient 35 mmHg Aortic Valve Name Value Normal AV Doppler AV Peak Velocity 161 cm/s AV Peak Gradient 10 mmHg AV Mean Gradient 6 mmHg AV VTI 37 cm AV Area (Cont Eq VTI) 2.2 cm2 >=3.0 AV Area (Cont Eq Anup) 1.8 cm2 AV Regurgitation 2D LVOT Area 3.0 cm2 Ventricles Name Value Normal LV Dimensions 2D/MM IVS Diastolic Thickness (2D) 1.1 cm 0.6-1.0 LVID Diastole (2D) 3.7 cm 3.8-5.2 LVIW Diastolic Thickness (2D) 1.1 cm 0.6-0.9 LVID Systole (2D) 2.6 cm 2.2-3.5 LVOT Diameter 2.0 cm LV Mass (2D Cubed) 127.67 g 67.00-162.00 LV Mass Index (2D Cubed) 66 g/m2 43-95 Relative Wall Thickness (2D) 0.57 LV Fractional Shortening/Ejection Fraction 2D/MM LV Fractional Shortening (2D) 31 % 27-45 LV EF (2D Teicholz) 60 % 54-74 LV Diastolic Volume (4C MOD) 109 ml LV EF (4C MOD) 68 % LV Diastolic Volume (2C MOD) 138 ml LV EF (2C MOD) 73 % LV Diastolic Volume (BP MOD) 127 ml 46-106 LV Diastolic Volume Index (BP MOD) 66 ml/m2 29-61 LV Systolic Volume (BP MOD) 36 ml 14-42 LV Systolic Volume Index (BP MOD) 19 ml/m2 8-24 LV EF (BP MOD) 72 % 54-74 LV Diastolic Length (4C) 7.3 cm LV Systolic Length (4C) 5.8 cm LV Stroke Volume (4C MOD) 74 ml Atria Name Value Normal LA Dimensions LA Volume (4C A-L) 91 ml LA Volume (BP A-L) 88 ml RA Dimensions RA Area (4C) 13.7 cm2 <=18.0 Report Signatures
[2024-07-27 00:43] LABS: Glucose Point of Care 297 mg/dl (65-105)
[2024-07-27] MEDS: INSULIN ASPART (*BKC) 100 UNITS/ML SUB-Q ×6 (00:44→20:04)
[2024-07-27 04:11] LABS: Hematocrit 34.1 % (37.0-47.0); Hemoglobin 10.6 g/dL (12.0-15.0); Mean Corpuscular HGB Conc 31.1 g/dl (32-36); Mean Corpuscular Hemoglobin 31.2 pg (26-34); Mean Corpuscular Volume 100.3 fl (80-100); Mean Platelet Volume 10.9 fl (7.4-10.4); Platelet Count Result 171 k/mm3 (150-375); Red Cell Distribution Width 15.3 % (11.5-14.5); White Blood Count 10.7 K/mm3 (4.5-10.0)
[2024-07-27 04:21] LABS: Alanine Aminotransferase 18 U/L (6-35); Albumin Level 2.8 g/dL (3.5-5.1); Alkaline Phosphatase 89 U/L (38-126); Anion Gap 3 mmol/L (4-12); Aspartate Amino Transferase 19 U/L (14-36); Bilirubin,Total 0.3 mg/dL (0.2-1.3); Blood Urea Nitrogen 18 mg/dL (7-17); Calcium 8.6 mg/dL (8.4-10.2); Carbon Dioxide 28 mmol/L (22-30); Chloride 105 mmol/L (98-107); Estimated CRCL calculation 55 ml/min; Estimated Glomerular Filt Rate > 60; Glucose 325 mg/dL (65-110); Potassium 4.4 mmol/L (3.4-5.0); Sodium 136 mmol/L (137-145)
[2024-07-27] MEDS: dilTIAZem 100 MG/100 ML 100 MG/100 ML BAG IV CONT (04:25)
[2024-07-27] MEDS: PROPOFOL IV EMULSION 100 ML 9.19 MG IV CONT (04:27)
[2024-07-27 04:57] LABS: Base Excess ABG 0.4 mEq/l (+/-2.0); Carboxyhemoglobin 0.3 % THb (0-2.0); Fractional Inspired Oxygen 40 %; HCO3 ABG 25.4 mEq/l (22.0-26.0); Methemoglobin ABG 0.3 %THb (0-1.5); Oxygen Content ABG 15.8 %vol (16.0-22.0); Oxygen Saturation ABG 94.7 % (95.0-100.0); Oxyhemoglobin 93.5 % THb (90.0-100.0); PCO2 ABG 42.5 mmHg (35.0-45.0); PO2 ABG 73.3 mmHg (80.0-100.0); PO2 FiO2 Ratio Arterial Blood 1.83 %; Reduced Hemoglobin 5.9 %THb (0-5.0); pH ABG 7.394 (7.350-7.450)
[2024-07-27 04:59] LABS: Arterial Blood Gas Vent Mode CMV; Arterial Blood Gas Ventilator rate 20 /MIN; Device VENTILATOR; Modified Allen's Test Pass; Site Drawn RIGHT RADIAL
[2024-07-27 05:00] LABS: Arterial Blood Gas PEEP 5 cmH2O; Arterial Blood Gas Tidal Volume 400 ml
[2024-07-27] MEDS: MEROPENEM 1 GM/NS 100 ML 1 GM/100 ML BAG IVPB ×3 (05:27→21:57)
[2024-07-27] MEDS: CENTRAL LINE FLUSH 20 ML IV PUSH (05:28)
[2024-07-27] MEDS: CENTRAL LINE FLUSH 10 ML IV PUSH ×3 (05:28→21:57)
[2024-07-27 07:34] LABS: Glucose Point of Care 308 mg/dl (65-105)
[2024-07-27 08:01] LABS: NT Pro B Type Natriuretic Pept 7220 pg/mL (19.9-100)
--- NOTE | 2024-07-27 08:17 | WPDINTPN ---
Progress Note: A&P Assessment and Plan (1) Acute respiratory failure with hypoxia: Code(s): J96.01 - Acute respiratory failure with hypoxia Status: Acute Assessment and Plan: Acute respiratory failure secondary to altered mental status, aspiration pneumonia with underlying COPD CT scan chest x-ray ABG on vent settings reviewed Continue FiO2 at 40% tidal volume to 400 and rate to 20 Continue Bronchodilator and Steroids Management of pneumonia as below (2) Altered mental status: Qualifiers: Altered mental status type: coma Coma depth: [place] coma 3-8 Coma timing: at hospital admission Qualified Code(s): R40.2433 - Agrry coma scale score 3-8, at hospital admission Code(s): R41.82 - Altered mental status, unspecified Status: Acute Assessment and Plan: Patient presented with unresponsiveness and hypoglycemia. Patient was down for a prolonged period of time This could be secondary to hypoglycemia or she may have had seizure and was postictal. Currently sedated Head CT was negative 06/27 Versed and fentanyl. Was switched to propofol Check EEG pending Neurology consult Normal ammonia and TSH Unable to obtain MRI on a vented patient at [facility] Will perform sedation holiday and assess neuro status (3) Sepsis: Code(s): A41.9 - Sepsis, unspecified organism Status: Acute Assessment and Plan: Sepsis secondary to UTI and pneumonia which is likely aspiration UA suggestive of UTI Chest CT reviewed Blood sputum and urine culture ordered and pending Continue meropenem. Will discontinue vancomycin as MRSA screen is negative (4) Atrial fibrillation with rapid ventricular response: Code(s): I48.91 - Unspecified atrial fibrillation Status: Acute Assessment and Plan: Patient has history of AFib and is on sotalol as an outpatient When patient came in she was in sinus rhythm but after admission she has gone into AFib with RVR After discussion with Cardiology. Patient was started on diltiazem infusion for rate control and continue sotalol this time. If patient does not tolerate diltiazem she may need amiodarone infusion while monitoring a QTC. 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 Patient is now on SSI and Lantus (6) Hypoglycemia: Code(s): E16.2 - Hypoglycemia, unspecified Status: Acute Assessment and Plan: Patient presented with hypoglycemia and was treated with D50 push and now is on D10 water Hypoglycemia has now resolved and patient is off of IV fluids with dextrose. Management of diabetes as above (7) Acute UTI: Code(s): N39.0 - Urinary tract infection, site not specified Status: Acute Assessment and Plan: See above (8) Pneumonia: Code(s): J18.9 - Pneumonia, unspecified organism Status: Acute Assessment and Plan: See above (9) Chronic obstructive pulmonary disease: Code(s): J44.9 - Chronic obstructive pulmonary disease, unspecified Status: Acute Assessment and Plan: See above (10) Swelling of lower extremity: Code(s): M79.89 - Other specified soft tissue disorders Status: Acute Assessment and Plan: Bilateral pitting edema Bilateral lower extremity Dopplers negative for DVT Patient likely has right heart failure from her COPD Plan DVT prophylaxis -apixaban Stress ulcer prophylaxis -Protonix Nutrition -continue Tube Feeds Code Status - Full Code Total Critical Care Time - 30 minutes Due to a high probability of clinically significant, life threatening deterioration, the patient required my highest level of preparedness to intervene emergently and I personally spent this critical care time directly and personally managing the patient. This critical care time included obtaining a history; examining the patient; pulse oximetry; ordering and review of studies; arranging urgent treatment with development of a management plan; evaluation of patient's response to treatment; frequent reassessment; and discussions with other providers. It was exclusive of separately billable procedures and treating other patients and teaching time. Please see Assessment and Plan section and the rest of the note for further information on patient assessment and treatment Subjective Date/time seen: 07/27/24 Overnight events reviewed. Afebrile for the most part Continues to be on mechanical ventilation 40% FiO2 Continues to be on diltiazem infusion and in AFib with controlled ventricular rate Continues to be sedated with propofol Other Vitals acceptable Tolerating tube feeds. Good urine output. Review of Systems Review of Systems: ROS unobtainable: Yes unobtainable due to endotracheal tube, unobtainable due to medical condition and unobtainable due to mental status Exam Narrative: General: Pt is sedated, intubated and on mechanical ventilation Lungs/Chest: Trachea central Coarse BS B/L, bilateral wheezing Cardiac: A regular rate and rhythm. Normal S1 S2. No murmurs Circulation: Pedal pulses are intact and symmetrical. Abdomen: Decreased bowel sounds.. Soft. NT. ND. Extremities: Bilateral pitting edema present right more than left : [place] in place Neurologic: Unable to fully assess due to patient being on Versed and fentanyl sedation. She did not withdraw to pain. Pupils were equal round and reactive to light. On holding sedation she does move her upper extremities spontaneously. Objective Data Vital Signs Vital Signs: Vital Signs - 24 hr 07/26/24 08:25 07/26/24 08:56 07/26/24 08:56 Temperature Pulse Rate 61 140 H 160 H Respiratory Rate 22 H Blood Pressure Pulse Oximetry 98 Oxygen Delivery Mechanical Ventilation Oxygen Flow Rate Fraction of Inspired Oxygen 50 07/26/24 08:56 07/26/24 09:01 07/26/24 09:11 Temperature Pulse Rate 160 H 135 H Respiratory Rate 22 H 22 H Blood Pressure Pulse Oximetry 95 Oxygen Delivery Mechanical Ventilation Oxygen Flow Rate Fraction of Inspired Oxygen 50 07/26/24 09:12 07/26/24 09:15 07/26/24 10:00 Temperature 37.0 C Pulse Rate 132 H 125 H 140 H Respiratory Rate 20 20 Blood Pressure 141/85 H Pulse Oximetry 96 98 Oxygen Delivery Mechanical Ventilation Oxygen Flow Rate Fraction of Inspired Oxygen 40 07/26/24 10:00 07/26/24 10:07 07/26/24 11:13 Temperature Pulse Rate 157 H 160 H 125 H Respiratory Rate Blood Pressure 141/85 H 147/68 H Pulse Oximetry Oxygen Delivery Oxygen Flow Rate Fraction of Inspired Oxygen 07/26/24 11:17 07/26/24 11:28 07/26/24 12:00 Temperature 37.4 C Pulse Rate 123 H 151 H 100 Respiratory Rate 32 H 29 H 20 Blood Pressure 106/49 L Pulse Oximetry 95 Oxygen Delivery Oxygen Flow Rate Fraction of Inspired Oxygen 07/26/24 12:00 07/26/24 12:00 07/26/24 12:00 Temperature Pulse Rate 97 57 L Respiratory Rate 20 Blood Pressure Pulse Oximetry 96 Oxygen Delivery Mechanical Ventilation Oxygen Flow Rate Fraction of Inspired Oxygen 40 40 07/26/24 12:06 07/26/24 12:31 07/26/24 12:31 Temperature Pulse Rate 104 H 97 98 Respiratory Rate 20 Blood Pressure 100/37 L Pulse Oximetry 96 Oxygen Delivery Mechanical Ventilation Oxygen Flow Rate Fraction of Inspired Oxygen 40 07/26/24 14:00 07/26/24 14:00 07/26/24 14:31 Temperature 37.4 C Pulse Rate 94 94 100 Respiratory Rate 19 Blood Pressure 112/51 L 107/58 L Pulse Oximetry 95 Oxygen Delivery Oxygen Flow Rate Fraction of Inspired Oxygen 07/26/24 14:31 07/26/24 14:50 07/26/24 15:16 Temperature Pulse Rate 97 124 H 125 H Respiratory Rate 20 Blood Pressure 140/77 Pulse Oximetry 95 Oxygen Delivery Mechanical Ventilation Oxygen Flow Rate Fraction of Inspired Oxygen 40 07/26/24 16:00 07/26/24 16:00 07/26/24 16:00 Temperature Pulse Rate 57 L 109 H Respiratory Rate 20 Blood Pressure Pulse Oximetry 96 Oxygen Delivery Mechanical Ventilation Oxygen Flow Rate 15 Fraction of Inspired Oxygen 40 40 07/26/24 16:00 07/26/24 16:25 07/26/24 16:59 Temperature 37.6 C H Pulse Rate 119 H 117 H 115 H Respiratory Rate 20 21 H Blood Pressure 151/68 H Pulse Oximetry 94 94 Oxygen Delivery Mechanical Ventilation Oxygen Flow Rate Fraction of Inspired Oxygen 40 07/26/24 17:37 07/26/24 18:00 07/26/24 18:00 Temperature Pulse Rate 122 H 120 H 116 H Respiratory Rate 21 H Blood Pressure 129/56 L Pulse Oximetry Oxygen Delivery Oxygen Flow Rate Fraction of Inspired Oxygen 07/26/24 18:00 07/26/24 18:19 07/26/24 18:19 Temperature 37.7 C H Pulse Rate 116 H 121 H 121 H Respiratory Rate 21 H Blood Pressure 130/51 L 140/73 140/73 Pulse Oximetry 94 Oxygen Delivery Oxygen Flow Rate Fraction of Inspired Oxygen 07/26/24 20:00 07/26/24 20:00 07/26/24 20:00 Temperature Pulse Rate 105 H 113 H 111 H Respiratory Rate 23 H 23 H Blood Pressure 133/78 Pulse Oximetry 93 Oxygen Delivery Mechanical Ventilation Oxygen Flow Rate Fraction of Inspired Oxygen 40 07/26/24 20:00 07/26/24 20:00 07/26/24 20:00 Temperature 37.6 C Pulse Rate 108 H 111 H Respiratory Rate 23 H Blood Pressure 133/78 Pulse Oximetry 93 Oxygen Delivery Oxygen Flow Rate Fraction of Inspired Oxygen 40 07/26/24 20:24 07/26/24 20:24 07/26/24 20:29 Temperature Pulse Rate 113 H 113 H 113 H Respiratory Rate 25 H 25 H Blood Pressure Pulse Oximetry Oxygen Delivery Oxygen Flow Rate Fraction of Inspired Oxygen 07/26/24 20:35 07/26/24 20:41 07/26/24 22:00 Temperature Pulse Rate 108 H 133 H 97 Respiratory Rate 18 25 H Blood Pressure Pulse Oximetry 95 Oxygen Delivery Mechanical Ventilation Oxygen Flow Rate Fraction of Inspired Oxygen 40 07/26/24 22:00 07/26/24 22:00 07/26/24 22:00 Temperature 37.5 C Pulse Rate 97 97 97 Respiratory Rate 22 H Blood Pressure 121/63 121/63 Pulse Oximetry 94 Oxygen Delivery Oxygen Flow Rate Fraction of Inspired Oxygen 07/26/24 22:24 07/26/24 22:33 07/26/24 23:23 Temperature Pulse Rate 69 63 76 Respiratory Rate Blood Pressure 116/64 100/49 L 99/57 L Pulse Oximetry Oxygen Delivery Oxygen Flow Rate Fraction of Inspired Oxygen 07/26/24 23:38 07/27/24 00:00 07/27/24 00:00 Temperature Pulse Rate 74 106 H 98 Respiratory Rate 28 H Blood Pressure Pulse Oximetry 96 94 Oxygen Delivery Mechanical Ventilation Mechanical Ventilation Oxygen Flow Rate Fraction of Inspired Oxygen 40 40 07/27/24 00:00 07/27/24 00:00 07/27/24 00:00 Temperature 37.3 C Pulse Rate 106 H 106 H Respiratory Rate 28 H 28 H Blood Pressure 142/65 H Pulse Oximetry 94 Oxygen Delivery Oxygen Flow Rate Fraction of Inspired Oxygen 40 07/27/24 00:00 07/27/24 01:59 07/27/24 02:00 Temperature Pulse Rate 106 H 79 107 H Respiratory Rate Blood Pressure 142/65 H Pulse Oximetry 96 Oxygen Delivery Mechanical Ventilation Oxygen Flow Rate Fraction of Inspired Oxygen 40 07/27/24 02:00 07/27/24 02:00 07/27/24 02:00 Temperature 37.4 C Pulse Rate 107 H 107 H 107 H Respiratory Rate 25 H 25 H Blood Pressure 144/85 H 144/85 H Pulse Oximetry 96 Oxygen Delivery Oxygen Flow Rate Fraction of Inspired Oxygen 07/27/24 04:00 07/27/24 04:00 07/27/24 04:00 Temperature Pulse Rate 94 94 98 Respiratory Rate 20 21 H Blood Pressure 104/56 L Pulse Oximetry 95 Oxygen Delivery Mechanical Ventilation Oxygen Flow Rate Fraction of Inspired Oxygen 40 07/27/24 04:00 07/27/24 04:00 07/27/24 04:00 Temperature 37.3 C Pulse Rate 100 98 Respiratory Rate 21 H Blood Pressure 104/56 L Pulse Oximetry 95 Oxygen Delivery Oxygen Flow Rate Fraction of Inspired Oxygen 40 07/27/24 04:25 07/27/24 04:25 07/27/24 04:27 Temperature Pulse Rate 98 98 98 Respiratory Rate 22 H Blood Pressure 108/45 L 108/45 L Pulse Oximetry Oxygen Delivery Oxygen Flow Rate Fraction of Inspired Oxygen 07/27/24 04:27 07/27/24 04:50 07/27/24 06:00 Temperature Pulse Rate 98 90 91 Respiratory Rate 22 H Blood Pressure Pulse Oximetry 97 Oxygen Delivery Mechanical Ventilation Oxygen Flow Rate Fraction of Inspired Oxygen 40 07/27/24 06:00 07/27/24 06:16 07/27/24 06:17 Temperature 37.4 C Pulse Rate 91 91 91 Respiratory Rate 19 20 Blood Pressure 121/51 L 121/51 L Pulse Oximetry 95 Oxygen Delivery Oxygen Flow Rate Fraction of Inspired Oxygen 07/27/24 07:31 07/27/24 08:00 07/27/24 08:00 Temperature 37.6 C H Pulse Rate 112 H 137 H 129 H Respiratory Rate 26 H 26 H Blood Pressure 138/69 150/76 H Pulse Oximetry 95 Oxygen Delivery Oxygen Flow Rate Fraction of Inspired Oxygen Intake/Output Intake/Output: Intake & Output 07/24/24 07/25/24 07/26/24 07/27/24 23:59 23:59 23:59 23:59 Intake Total 0.4 1575.0 840.7 Output Total 1660 950 Balance 0.4 -85.0 -109.3 Meds/Results Medications: Active Medications Generic Name Dose Route Start Last Admin Trade Name Freq PRN Reason Stop Dose Admin Albuterol 5 mg 07/26/24 10:06 Albuterol Sulfate Neb 2.5 Mg/3 Ml Inh INHALATION Q6HRT PRN Wheezing Apixaban 5 mg 07/26/24 09:00 07/26/24 20:29 Apixaban 5 Mg Tablet FEED TUBE 5 mg Q12HR TYREL Administration Dextrose 12.5 gm 07/27/24 07:28 Dextrose 50% 25 Gm/50 Ml Syringe IV PUSH PRN PRN Hypoglycemia Protocol Glucagon 1 mg 07/27/24 07:28 Glucagon For Inj 1 Mg Vial IM PRN PRN Hypoglycemia Protocol Glucose 15 gm 07/27/24 07:28 Glucose Oral Gel 15 Gm Of Glucse In 37.5 Gm Tube PO PRN PRN Hypoglycemia Protocol Meropenem 1 gm in 100 mls @ 200 mls/hr 07/26/24 06:00 07/27/24 06:16 IVPB Infused Q8HR TYREL Infusion Diltiazem HCl 100 mg in 100 mls @ 10 mls/hr 07/26/24 10:00 07/27/24 08:00 Cardizem 100 Mg/100 Ml IV CONT 10 mg/hr .Q10H TYREL 10 mls/hr Titration Protocol 10 MG/HR Propofol 100 mls @ 0 mls/hr 07/26/24 11:15 07/27/24 07:31 Diprivan IV CONT 0 mcg/kg/min .Q0M TYREL 0 mls/hr Titration Protocol Dextrose 1,000 mls @ 100 mls/hr 07/27/24 07:28 Dextrose 5% 1,000 Ml IVPB PRN PRN Hypoglycemia Protocol Insulin Aspart 4 - 8 units 07/27/24 07:30 Insulin Aspart (*Bkc) 100 Units/Ml SUB-Q Q4H TYREL Protocol Insulin Glargine 20 units 07/27/24 09:00 Insulin Glargine (*Bkc) 100 Units/Ml SUB-Q QAM TYREL Ipratropium [place] 0.5 mg 07/26/24 10:06 Ipratropium Br 0.02% Inh Soln 0.5 Mg/2.5 Ml Vial INHALATION Q6HRT PRN Wheezing Methylprednisolone Sodium Succinate 80 mg 07/26/24 10:05 07/26/24 10:30 Methylprednisolone Sod Succ 125 Mg Vial IV PUSH 80 mg QAM TYREL Administration Multi-Ingred Cream/Lotion/Oil/Oint 1 applic 07/26/24 21:00 07/26/24 20:28 Mineral Oil/White Petrolatum Ointment EACH EYE 1 applic Q12HR TYREL Administration Pantoprazole Sodium 40 mg 07/26/24 09:00 07/26/24 08:38 Pantoprazole Sodium Iv 40 Mg Vial IV PUSH 40 mg DAILY TYREL Administration Sodium Chloride 10 ml 07/26/24 22:00 07/27/24 05:28 Central Line Flush IV PUSH 10 ml Q8HR TYREL Administration Sodium Chloride 20 ml 07/26/24 20:30 07/27/24 05:28 Central Line Flush IV PUSH 20 ml PRN PRN Administration after blood draws Sotalol HCl 80 mg 07/26/24 09:00 07/26/24 20:29 Sotalol Hcl 80 Mg Tablet FEED TUBE 80 mg Q12HR TYREL Administration Radiology Results: ITS Impressions Head CT 07/25/24 21:08 Impression: No large acute intracranial hemorrhage or suspicious mass effect. Abdomen X-Ray 07/25/24 22:47 IMPRESSION: Endotracheal tube in good radiographic position. Orogastric tube in good position, and ready for immediate use. Redemonstration of a left upper lobe infiltrate, now with mild to moderate pulmonary vascular congestion Chest CT 07/26/24 05:14 Impression: Moderate left pleural effusion is increased from prior exam. Minimal right pleural effusion. Extensive presumed atelectatic changes in the left lower lobe and left upper lobe/lingula with mild right basilar atelectasis. Correlate clinically for pulmonary edema or pneumonia. Stable irregular airspace consolidation left lung apex, suggestive of chronic scarring or postinflammatory change. Correlate for acute pneumonia. Venous Doppler Study 07/26/24 11:15 IMPRESSION: 1: No lower extremity deep venous thrombosis. Chest X-Ray 07/27/24 06:27 Impression: Stable support tubes. Stable left perihilar consolidation, suspicious for pneumonia. Small left pleural effusion. Central congestive change. Labs Labs: Laboratory Results - last 24 hr 07/26/24 07/26/24 07/26/24 08:46 08:52 10:23 WBC 8.9 RBC 3.46 L Hgb 10.9 L Hct 35.0 L MCV 101.2 H MCH 31.5 MCHC 31.1 L RDW 15.2 H Plt Count 175 MPV 10.3 Immature Gran % (Auto) 0.3 Neut % (Auto) 81.6 H Lymph % (Auto) 9.6 L [place] % (Auto) 8.1 Eos % (Auto) 0.1 Baso % (Auto) 0.3 Lymph # (Auto) 0.86 L [place] # (Auto) 0.7 H Eos # (Auto) 0.0 Baso # (Auto) 0.0 Abs Immat Gran (auto) 0.03 Absolute Neuts (auto) 7.3 H Absolute Nucleated RBC 0.000 Nucleated RBC % 0.0 Puncture Site ABG pH ABG pCO2 ABG pO2 ABG PO2/FiO2 Ratio ABG HCO3 ABG O2 Saturation ABG O2 Content ABG Base Excess A-a Gradient Oxyhemoglobin Carboxyhemoglobin Methemoglobin Reduced Hemoglobin Total Hemoglobin O2 Delivery Device O2 Liters/Min Minute Volume Vent Rate Vent Mode FiO2 Tidal Volume PEEP Peak Inspir Pressure Pressure Support Sodium 136 L Potassium 3.9 Chloride 105 Carbon Dioxide 27 Anion Gap 4 BUN 14 Creatinine 0.71 Estim Creat Clear Calc 58 Estimated GFR > 60 Glucose 189 H POC Capillary Glucose 147 H 162 H Calcium 7.7 L Magnesium Total Bilirubin AST ALT Alkaline Phosphatase Ammonia Total Creatine Kinase 162 H NT-Pro-B Natriuret Pep Total Protein Albumin Triglycerides 103 TSH (Reflex) 07/26/24 07/26/24 07/26/24 10:33 11:56 12:39 WBC RBC Hgb Hct MCV MCH MCHC RDW Plt Count MPV Immature Gran % (Auto) Neut % (Auto) Lymph % (Auto) [place] % (Auto) Eos % (Auto) Baso % (Auto) Lymph # (Auto) [place] # (Auto) Eos # (Auto) Baso # (Auto) Abs Immat Gran (auto) Absolute Neuts (auto) Absolute Nucleated RBC Nucleated RBC % Puncture Site ABG pH ABG pCO2 ABG pO2 ABG PO2/FiO2 Ratio ABG HCO3 ABG O2 Saturation ABG O2 Content ABG Base Excess A-a Gradient Oxyhemoglobin Carboxyhemoglobin Methemoglobin Reduced Hemoglobin Total Hemoglobin O2 Delivery Device O2 Liters/Min Minute Volume Vent Rate Vent Mode FiO2 Tidal Volume PEEP Peak Inspir Pressure Pressure Support Sodium Potassium Chloride Carbon Dioxide Anion Gap BUN Creatinine Estim Creat Clear Calc Estimated GFR Glucose POC Capillary Glucose 228 H 214 H Calcium Magnesium Total Bilirubin AST ALT Alkaline Phosphatase Ammonia < 9 L Total Creatine Kinase NT-Pro-B Natriuret Pep Total Protein Albumin Triglycerides TSH (Reflex) 1.380 07/26/24 07/26/24 07/26/24 15:02 16:35 17:51 WBC RBC Hgb Hct MCV MCH MCHC RDW Plt Count MPV Immature Gran % (Auto) Neut % (Auto) Lymph % (Auto) [place] % (Auto) Eos % (Auto) Baso % (Auto) Lymph # (Auto) [place] # (Auto) Eos # (Auto) Baso # (Auto) Abs Immat Gran (auto) Absolute Neuts (auto) Absolute Nucleated RBC Nucleated RBC % Puncture Site ABG pH ABG pCO2 ABG pO2 ABG PO2/FiO2 Ratio ABG HCO3 ABG O2 Saturation ABG O2 Content ABG Base Excess A-a Gradient Oxyhemoglobin Carboxyhemoglobin Methemoglobin Reduced Hemoglobin Total Hemoglobin O2 Delivery Device O2 Liters/Min Minute Volume Vent Rate Vent Mode FiO2 Tidal Volume PEEP Peak Inspir Pressure Pressure Support Sodium Potassium Chloride Carbon Dioxide Anion Gap BUN Creatinine Estim Creat Clear Calc Estimated GFR Glucose POC Capillary Glucose 211 H 225 H 268 H Calcium Magnesium Total Bilirubin AST ALT Alkaline Phosphatase Ammonia Total Creatine Kinase NT-Pro-B Natriuret Pep Total Protein Albumin Triglycerides TSH (Reflex) 07/26/24 07/26/24 07/27/24 18:50 20:37 00:41 WBC RBC Hgb Hct MCV MCH MCHC RDW Plt Count MPV Immature Gran % (Auto) Neut % (Auto) Lymph % (Auto) [place] % (Auto) Eos % (Auto) Baso % (Auto) Lymph # (Auto) [place] # (Auto) Eos # (Auto) Baso # (Auto) Abs Immat Gran (auto) Absolute Neuts (auto) Absolute Nucleated RBC Nucleated RBC % Puncture Site ABG pH ABG pCO2 ABG pO2 ABG PO2/FiO2 Ratio ABG HCO3 ABG O2 Saturation ABG O2 Content ABG Base Excess A-a Gradient Oxyhemoglobin Carboxyhemoglobin Methemoglobin Reduced Hemoglobin Total Hemoglobin O2 Delivery Device O2 Liters/Min Minute Volume Vent Rate Vent Mode FiO2 Tidal Volume PEEP Peak Inspir Pressure Pressure Support Sodium Potassium Chloride Carbon Dioxide Anion Gap BUN Creatinine Estim Creat Clear Calc Estimated GFR Glucose POC Capillary Glucose 285 H 300 H 297 H Calcium Magnesium Total Bilirubin AST ALT Alkaline Phosphatase Ammonia Total Creatine Kinase NT-Pro-B Natriuret Pep Total Protein Albumin Triglycerides TSH (Reflex) 07/27/24 07/27/24 07/27/24 04:06 04:38 07:32 WBC 10.7 H RBC 3.40 L Hgb 10.6 L Hct 34.1 L MCV 100.3 H MCH 31.2 MCHC 31.1 L RDW 15.3 H Plt Count 171 MPV 10.9 H Immature Gran % (Auto) Neut % (Auto) Lymph % (Auto) [place] % (Auto) Eos % (Auto) Baso % (Auto) Lymph # (Auto) [place] # (Auto) Eos # (Auto) Baso # (Auto) Abs Immat Gran (auto) Absolute Neuts (auto) Absolute Nucleated RBC Nucleated RBC % Puncture Site Right radial ABG pH 7.394 ABG pCO2 42.5 ABG pO2 73.3 L ABG PO2/FiO2 Ratio 1.83 ABG HCO3 25.4 ABG O2 Saturation 94.7 L ABG O2 Content 15.8 L ABG Base Excess 0.4 A-a Gradient 163.0 Oxyhemoglobin 93.5 Carboxyhemoglobin 0.3 Methemoglobin 0.3 Reduced Hemoglobin 5.9 H Total Hemoglobin 12.0 O2 Delivery Device Ventilator O2 Liters/Min Not Reportable Minute Volume Not Reportable Vent Rate 20 Vent Mode Cmv FiO2 40 Tidal Volume 400 PEEP 5 Peak Inspir Pressure Not Reportable Pressure Support Not Reportable Sodium 136 L Potassium 4.4 Chloride 105 Carbon Dioxide 28 Anion Gap 3 L BUN 18 H Creatinine 0.75 Estim Creat Clear Calc 55 Estimated GFR > 60 Glucose 325 H POC Capillary Glucose 308 H Calcium 8.6 Magnesium 2.0 Total Bilirubin 0.3 AST 19 ALT 18 Alkaline Phosphatase 89 Ammonia Total Creatine Kinase NT-Pro-B Natriuret Pep 7220 H Total Protein 6.0 L Albumin 2.8 L Triglycerides TSH (Reflex) Quality VTE Prophylaxis VTE prophylaxis: pharmacologic ordered
--- NOTE | 2024-07-27 08:45 | PM.PNCARD ---
Progress Note: A&P Assessment and Plan (1) Atrial fibrillation with rapid ventricular response: Code(s): I48.91 - Unspecified atrial fibrillation Status: Acute Assessment and Plan: -TTE -Check TSH and free T3 and free T4 -Start Cardizem drip and titrate to rate<110 -lopressor 5mg IV p.r.n. for sustained HR >130 -Continue anticoagulation with Eliquis -Continue Sotalol -If pt unable to tolerate cardizem due to hypotension, then give amiodarone 300mg IV once followed by drip. Stop Sotalol if amiodarone is started. EKG shows QTc of 442. Monitor on telemetry continuously. Repeat EKG in 4 hours after starting amiodarone -Check and replace electrolytes as needed to keep K>4 and Mg>2 Subjective Date/time seen: 07/27/24 08:45 Interval history: Cardiology follow up visit 07/27/2024: Heart rate is variable but on average reasonably controlled. Remains intubated and sedated. Review of Systems Review of Systems: A complete review of systems could not be performed as patient is intubated and sedated. Exam Narrative: General: intubated and sedated, no acute distress Neck: Supple, JVD + Chest: Bilaterally clear to auscultation, no rales or rhonchi Cardiac: S1, S2 +, irregular rate and rhythm, no murmurs or rubs Extremities: Bilateral lower extremity edema 1+, no skin rash Neurologic: Intubated and sedated Objective Data Vital Signs Vital Signs: Vital Signs - 24 hr 07/26/24 08:56 07/26/24 08:56 07/26/24 08:56 Temperature Pulse Rate 140 H 160 H 160 H Respiratory Rate 22 H 22 H Blood Pressure Pulse Oximetry Oxygen Delivery Oxygen Flow Rate Fraction of Inspired Oxygen 07/26/24 09:01 07/26/24 09:11 07/26/24 09:12 Temperature Pulse Rate 135 H 132 H Respiratory Rate 22 H Blood Pressure Pulse Oximetry 95 96 Oxygen Delivery Mechanical Ventilation Mechanical Ventilation Oxygen Flow Rate Fraction of Inspired Oxygen 50 40 07/26/24 09:15 07/26/24 10:00 07/26/24 10:00 Temperature 37.0 C Pulse Rate 125 H 140 H 157 H Respiratory Rate 20 20 Blood Pressure 141/85 H Pulse Oximetry 98 Oxygen Delivery Oxygen Flow Rate Fraction of Inspired Oxygen 05/08/25 10:07 07/26/24 11:13 07/26/24 11:17 Temperature Pulse Rate 160 H 125 H 123 H Respiratory Rate 32 H Blood Pressure 141/85 H 147/68 H Pulse Oximetry Oxygen Delivery Oxygen Flow Rate Fraction of Inspired Oxygen 07/26/24 11:28 07/26/24 12:00 07/26/24 12:00 Temperature 37.4 C Pulse Rate 151 H 100 97 Respiratory Rate 29 H 20 Blood Pressure 106/49 L Pulse Oximetry 95 Oxygen Delivery Oxygen Flow Rate Fraction of Inspired Oxygen 07/26/24 12:00 07/26/24 12:00 07/26/24 12:06 Temperature Pulse Rate 57 L 104 H Respiratory Rate 20 Blood Pressure Pulse Oximetry 96 96 Oxygen Delivery Mechanical Ventilation Mechanical Ventilation Oxygen Flow Rate Fraction of Inspired Oxygen 40 40 40 07/26/24 12:31 07/26/24 12:31 07/26/24 14:00 Temperature Pulse Rate 97 98 94 Respiratory Rate 20 Blood Pressure 100/37 L Pulse Oximetry Oxygen Delivery Oxygen Flow Rate Fraction of Inspired Oxygen 07/26/24 14:00 07/26/24 14:31 07/26/24 14:31 Temperature 37.4 C Pulse Rate 94 100 97 Respiratory Rate 19 20 Blood Pressure 112/51 L 107/58 L Pulse Oximetry 95 Oxygen Delivery Oxygen Flow Rate Fraction of Inspired Oxygen 07/26/24 14:50 07/26/24 15:16 07/26/24 16:00 Temperature Pulse Rate 124 H 125 H 57 L Respiratory Rate 20 Blood Pressure 140/77 Pulse Oximetry 95 96 Oxygen Delivery Mechanical Ventilation Mechanical Ventilation Oxygen Flow Rate 15 Fraction of Inspired Oxygen 40 40 07/26/24 16:00 07/26/24 16:00 07/26/24 16:00 Temperature 37.6 C H Pulse Rate 109 H 119 H Respiratory Rate 20 Blood Pressure 151/68 H Pulse Oximetry 94 Oxygen Delivery Oxygen Flow Rate Fraction of Inspired Oxygen 40 07/26/24 16:25 07/26/24 16:59 07/26/24 17:37 Temperature Pulse Rate 117 H 115 H 122 H Respiratory Rate 21 H Blood Pressure 129/56 L Pulse Oximetry 94 Oxygen Delivery Mechanical Ventilation Oxygen Flow Rate Fraction of Inspired Oxygen 40 07/26/24 18:00 07/26/24 18:00 07/26/24 18:00 Temperature 37.7 C H Pulse Rate 120 H 116 H 116 H Respiratory Rate 21 H 21 H Blood Pressure 130/51 L Pulse Oximetry 94 Oxygen Delivery Oxygen Flow Rate Fraction of Inspired Oxygen 07/26/24 18:19 07/26/24 18:19 07/26/24 20:00 Temperature Pulse Rate 121 H 121 H 105 H Respiratory Rate 23 H Blood Pressure 140/73 140/73 Pulse Oximetry Oxygen Delivery Oxygen Flow Rate Fraction of Inspired Oxygen 07/26/24 20:00 07/26/24 20:00 07/26/24 20:00 Temperature Pulse Rate 113 H 111 H 108 H Respiratory Rate 23 H Blood Pressure 133/78 Pulse Oximetry 93 Oxygen Delivery Mechanical Ventilation Oxygen Flow Rate Fraction of Inspired Oxygen 40 07/26/24 20:00 07/26/24 20:00 07/26/24 20:24 Temperature 37.6 C Pulse Rate 111 H 113 H Respiratory Rate 23 H 25 H Blood Pressure 133/78 Pulse Oximetry 93 Oxygen Delivery Oxygen Flow Rate Fraction of Inspired Oxygen 40 07/26/24 20:24 07/26/24 20:29 07/26/24 20:35 Temperature Pulse Rate 113 H 113 H 108 H Respiratory Rate 25 H Blood Pressure Pulse Oximetry 95 Oxygen Delivery Mechanical Ventilation Oxygen Flow Rate Fraction of Inspired Oxygen 40 07/26/24 20:41 07/26/24 22:00 07/26/24 22:00 Temperature Pulse Rate 133 H 97 97 Respiratory Rate 18 25 H Blood Pressure 121/63 Pulse Oximetry Oxygen Delivery Oxygen Flow Rate Fraction of Inspired Oxygen 07/26/24 22:00 07/26/24 22:00 07/26/24 22:24 Temperature 37.5 C Pulse Rate 97 97 69 Respiratory Rate 22 H Blood Pressure 121/63 116/64 Pulse Oximetry 94 Oxygen Delivery Oxygen Flow Rate Fraction of Inspired Oxygen 07/26/24 22:33 07/26/24 23:23 07/26/24 23:38 Temperature Pulse Rate 63 76 74 Respiratory Rate Blood Pressure 100/49 L 99/57 L Pulse Oximetry 96 Oxygen Delivery Mechanical Ventilation Oxygen Flow Rate Fraction of Inspired Oxygen 40 07/27/24 00:00 07/27/24 00:00 07/27/24 00:00 Temperature Pulse Rate 106 H 98 Respiratory Rate 28 H Blood Pressure Pulse Oximetry 94 Oxygen Delivery Mechanical Ventilation Oxygen Flow Rate Fraction of Inspired Oxygen 40 40 07/27/24 00:00 07/27/24 00:00 07/27/24 00:00 Temperature 37.3 C Pulse Rate 106 H 106 H 106 H Respiratory Rate 28 H 28 H Blood Pressure 142/65 H 142/65 H Pulse Oximetry 94 Oxygen Delivery Oxygen Flow Rate Fraction of Inspired Oxygen 07/27/24 01:59 07/27/24 02:00 07/27/24 02:00 Temperature 37.4 C Pulse Rate 79 107 H 107 H Respiratory Rate 25 H Blood Pressure 144/85 H Pulse Oximetry 96 96 Oxygen Delivery Mechanical Ventilation Oxygen Flow Rate Fraction of Inspired Oxygen 40 07/27/24 02:00 07/27/24 02:00 07/27/24 04:00 Temperature Pulse Rate 107 H 107 H 94 Respiratory Rate 25 H 20 Blood Pressure 144/85 H Pulse Oximetry Oxygen Delivery Oxygen Flow Rate Fraction of Inspired Oxygen 07/27/24 04:00 07/27/24 04:00 07/27/24 04:00 Temperature Pulse Rate 94 98 100 Respiratory Rate 21 H Blood Pressure 104/56 L Pulse Oximetry 95 Oxygen Delivery Mechanical Ventilation Oxygen Flow Rate Fraction of Inspired Oxygen 40 07/27/24 04:00 07/27/24 04:00 07/27/24 04:25 Temperature 37.3 C Pulse Rate 98 98 Respiratory Rate 21 H Blood Pressure 104/56 L 108/45 L Pulse Oximetry 95 Oxygen Delivery Oxygen Flow Rate Fraction of Inspired Oxygen 40 07/27/24 04:25 07/27/24 04:27 07/27/24 04:27 Temperature Pulse Rate 98 98 98 Respiratory Rate 22 H 22 H Blood Pressure 108/45 L Pulse Oximetry Oxygen Delivery Oxygen Flow Rate Fraction of Inspired Oxygen 07/27/24 04:50 07/27/24 06:00 07/27/24 06:00 Temperature 37.4 C Pulse Rate 90 91 91 Respiratory Rate 19 Blood Pressure 121/51 L Pulse Oximetry 97 95 Oxygen Delivery Mechanical Ventilation Oxygen Flow Rate Fraction of Inspired Oxygen 40 07/27/24 06:16 07/27/24 06:17 07/27/24 07:31 Temperature Pulse Rate 91 91 112 H Respiratory Rate 20 26 H Blood Pressure 121/51 L Pulse Oximetry Oxygen Delivery Oxygen Flow Rate Fraction of Inspired Oxygen 07/27/24 08:00 07/27/24 08:00 Temperature 37.6 C H Pulse Rate 137 H 129 H Respiratory Rate 26 H Blood Pressure 138/69 150/76 H Pulse Oximetry 95 Oxygen Delivery Oxygen Flow Rate Fraction of Inspired Oxygen Intake/Output Intake/Output: Intake & Output 07/24/24 07/25/24 07/26/24 07/27/24 23:59 23:59 23:59 23:59 Intake Total 0.4 1575.0 840.7 Output Total 1660 950 Balance 0.4 -85.0 -109.3 Meds/Results Medications: Active Medications Generic Name Dose Route Start Last Admin Trade Name Freq PRN Reason Stop Dose Admin Albuterol 5 mg 07/26/24 10:06 Albuterol Sulfate Neb 2.5 Mg/3 Ml Inh INHALATION Q6HRT PRN Wheezing Apixaban 5 mg 07/26/24 09:00 07/26/24 20:29 Apixaban 5 Mg Tablet FEED TUBE 5 mg Q12HR TYREL Administration Dextrose 12.5 gm 07/27/24 07:28 Dextrose 50% 25 Gm/50 Ml Syringe IV PUSH PRN PRN Hypoglycemia Protocol Glucagon 1 mg 07/27/24 07:28 Glucagon For Inj 1 Mg Vial IM PRN PRN Hypoglycemia Protocol Glucose 15 gm 07/27/24 07:28 Glucose Oral Gel 15 Gm Of Glucse In 37.5 Gm Tube PO PRN PRN Hypoglycemia Protocol Meropenem 1 gm in 100 mls @ 200 mls/hr 07/26/24 06:00 07/27/24 06:16 IVPB Infused Q8HR TYREL Infusion Diltiazem HCl 100 mg in 100 mls @ 10 mls/hr 07/26/24 10:00 07/27/24 08:00 Cardizem 100 Mg/100 Ml IV CONT 10 mg/hr .Q10H TYREL 10 mls/hr Titration Protocol 10 MG/HR Propofol 100 mls @ 0 mls/hr 07/26/24 11:15 07/27/24 07:31 Diprivan IV CONT 0 mcg/kg/min .Q0M TYREL 0 mls/hr Titration Protocol Dextrose 1,000 mls @ 100 mls/hr 07/27/24 07:28 Dextrose 5% 1,000 Ml IVPB PRN PRN Hypoglycemia Protocol Insulin Aspart 4 - 8 units 07/27/24 07:30 Insulin Aspart (*Bkc) 100 Units/Ml SUB-Q Q4H TYREL Protocol Insulin Glargine 20 units 07/27/24 09:00 Insulin Glargine (*Bkc) 100 Units/Ml SUB-Q QAM TYREL Ipratropium [place] 0.5 mg 07/26/24 10:06 Ipratropium Br 0.02% Inh Soln 0.5 Mg/2.5 Ml Vial INHALATION Q6HRT PRN Wheezing Methylprednisolone Sodium Succinate 80 mg 07/26/24 10:05 07/26/24 10:30 Methylprednisolone Sod Succ 125 Mg Vial IV PUSH 80 mg QAM TYREL Administration Multi-Ingred Cream/Lotion/Oil/Oint 1 applic 07/26/24 21:00 07/26/24 20:28 Mineral Oil/White Petrolatum Ointment EACH EYE 1 applic Q12HR TYREL Administration Pantoprazole Sodium 40 mg 07/26/24 09:00 07/26/24 08:38 Pantoprazole Sodium Iv 40 Mg Vial IV PUSH 40 mg DAILY TYREL Administration Sodium Chloride 10 ml 07/26/24 22:00 07/27/24 05:28 Central Line Flush IV PUSH 10 ml Q8HR TYREL Administration Sodium Chloride 20 ml 07/26/24 20:30 07/27/24 05:28 Central Line Flush IV PUSH 20 ml PRN PRN Administration after blood draws Sotalol HCl 80 mg 07/26/24 09:00 07/26/24 20:29 Sotalol Hcl 80 Mg Tablet FEED TUBE 80 mg Q12HR TYREL Administration Radiology Results: ITS Impressions Head CT 07/25/24 21:08 Impression: No large acute intracranial hemorrhage or suspicious mass effect. Abdomen X-Ray 07/25/24 22:47 IMPRESSION: Endotracheal tube in good radiographic position. Orogastric tube in good position, and ready for immediate use. Redemonstration of a left upper lobe infiltrate, now with mild to moderate pulmonary vascular congestion Chest CT 07/26/24 05:14 Impression: Moderate left pleural effusion is increased from prior exam. Minimal right pleural effusion. Extensive presumed atelectatic changes in the left lower lobe and left upper lobe/lingula with mild right basilar atelectasis. Correlate clinically for pulmonary edema or pneumonia. Stable irregular airspace consolidation left lung apex, suggestive of chronic scarring or postinflammatory change. Correlate for acute pneumonia. Venous Doppler Study 07/26/24 11:15 IMPRESSION: 1: No lower extremity deep venous thrombosis. Chest X-Ray 07/27/24 06:27 Impression: Stable support tubes. Stable left perihilar consolidation, suspicious for pneumonia. Small left pleural effusion. Central congestive change. Labs Labs: Laboratory Results - last 24 hr 07/26/24 07/26/24 07/26/24 08:46 08:52 10:23 WBC 8.9 RBC 3.46 L Hgb 10.9 L Hct 35.0 L MCV 101.2 H MCH 31.5 MCHC 31.1 L RDW 15.2 H Plt Count 175 MPV 10.3 Immature Gran % (Auto) 0.3 Neut % (Auto) 81.6 H Lymph % (Auto) 9.6 L [place] % (Auto) 8.1 Eos % (Auto) 0.1 Baso % (Auto) 0.3 Lymph # (Auto) 0.86 L [place] # (Auto) 0.7 H Eos # (Auto) 0.0 Baso # (Auto) 0.0 Abs Immat Gran (auto) 0.03 Absolute Neuts (auto) 7.3 H Absolute Nucleated RBC 0.000 Nucleated RBC % 0.0 Puncture Site ABG pH ABG pCO2 ABG pO2 ABG PO2/FiO2 Ratio ABG HCO3 ABG O2 Saturation ABG O2 Content ABG Base Excess A-a Gradient Oxyhemoglobin Carboxyhemoglobin Methemoglobin Reduced Hemoglobin Total Hemoglobin O2 Delivery Device O2 Liters/Min Minute Volume Vent Rate Vent Mode FiO2 Tidal Volume PEEP Peak Inspir Pressure Pressure Support Sodium 136 L Potassium 3.9 Chloride 105 Carbon Dioxide 27 Anion Gap 4 BUN 14 Creatinine 0.71 Estim Creat Clear Calc 58 Estimated GFR > 60 Glucose 189 H POC Capillary Glucose 147 H 162 H Calcium 7.7 L Magnesium Total Bilirubin AST ALT Alkaline Phosphatase Ammonia Total Creatine Kinase 162 H NT-Pro-B Natriuret Pep Total Protein Albumin Triglycerides 103 TSH (Reflex) 07/26/24 07/26/24 07/26/24 10:33 11:56 12:39 WBC RBC Hgb Hct MCV MCH MCHC RDW Plt Count MPV Immature Gran % (Auto) Neut % (Auto) Lymph % (Auto) [place] % (Auto) Eos % (Auto) Baso % (Auto) Lymph # (Auto) [place] # (Auto) Eos # (Auto) Baso # (Auto) Abs Immat Gran (auto) Absolute Neuts (auto) Absolute Nucleated RBC Nucleated RBC % Puncture Site ABG pH ABG pCO2 ABG pO2 ABG PO2/FiO2 Ratio ABG HCO3 ABG O2 Saturation ABG O2 Content ABG Base Excess A-a Gradient Oxyhemoglobin Carboxyhemoglobin Methemoglobin Reduced Hemoglobin Total Hemoglobin O2 Delivery Device O2 Liters/Min Minute Volume Vent Rate Vent Mode FiO2 Tidal Volume PEEP Peak Inspir Pressure Pressure Support Sodium Potassium Chloride Carbon Dioxide Anion Gap BUN Creatinine Estim Creat Clear Calc Estimated GFR Glucose POC Capillary Glucose 228 H 214 H Calcium Magnesium Total Bilirubin AST ALT Alkaline Phosphatase Ammonia < 9 L Total Creatine Kinase NT-Pro-B Natriuret Pep Total Protein Albumin Triglycerides TSH (Reflex) 1.380 07/26/24 07/26/24 07/26/24 15:02 16:35 17:51 WBC RBC Hgb Hct MCV MCH MCHC RDW Plt Count MPV Immature Gran % (Auto) Neut % (Auto) Lymph % (Auto) [place] % (Auto) Eos % (Auto) Baso % (Auto) Lymph # (Auto) [place] # (Auto) Eos # (Auto) Baso # (Auto) Abs Immat Gran (auto) Absolute Neuts (auto) Absolute Nucleated RBC Nucleated RBC % Puncture Site ABG pH ABG pCO2 ABG pO2 ABG PO2/FiO2 Ratio ABG HCO3 ABG O2 Saturation ABG O2 Content ABG Base Excess A-a Gradient Oxyhemoglobin Carboxyhemoglobin Methemoglobin Reduced Hemoglobin Total Hemoglobin O2 Delivery Device O2 Liters/Min Minute Volume Vent Rate Vent Mode FiO2 Tidal Volume PEEP Peak Inspir Pressure Pressure Support Sodium Potassium Chloride Carbon Dioxide Anion Gap BUN Creatinine Estim Creat Clear Calc Estimated GFR Glucose POC Capillary Glucose 211 H 225 H 268 H Calcium Magnesium Total Bilirubin AST ALT Alkaline Phosphatase Ammonia Total Creatine Kinase NT-Pro-B Natriuret Pep Total Protein Albumin Triglycerides TSH (Reflex) 07/26/24 07/26/24 07/27/24 18:50 20:37 00:41 WBC RBC Hgb Hct MCV MCH MCHC RDW Plt Count MPV Immature Gran % (Auto) Neut % (Auto) Lymph % (Auto) [place] % (Auto) Eos % (Auto) Baso % (Auto) Lymph # (Auto) [place] # (Auto) Eos # (Auto) Baso # (Auto) Abs Immat Gran (auto) Absolute Neuts (auto) Absolute Nucleated RBC Nucleated RBC % Puncture Site ABG pH ABG pCO2 ABG pO2 ABG PO2/FiO2 Ratio ABG HCO3 ABG O2 Saturation ABG O2 Content ABG Base Excess A-a Gradient Oxyhemoglobin Carboxyhemoglobin Methemoglobin Reduced Hemoglobin Total Hemoglobin O2 Delivery Device O2 Liters/Min Minute Volume Vent Rate Vent Mode FiO2 Tidal Volume PEEP Peak Inspir Pressure Pressure Support Sodium Potassium Chloride Carbon Dioxide Anion Gap BUN Creatinine Estim Creat Clear Calc Estimated GFR Glucose POC Capillary Glucose 285 H 300 H 297 H Calcium Magnesium Total Bilirubin AST ALT Alkaline Phosphatase Ammonia Total Creatine Kinase NT-Pro-B Natriuret Pep Total Protein Albumin Triglycerides TSH (Reflex) 07/27/24 07/27/24 07/27/24 04:06 04:38 07:32 WBC 10.7 H RBC 3.40 L Hgb 10.6 L Hct 34.1 L MCV 100.3 H MCH 31.2 MCHC 31.1 L RDW 15.3 H Plt Count 171 MPV 10.9 H Immature Gran % (Auto) Neut % (Auto) Lymph % (Auto) [place] % (Auto) Eos % (Auto) Baso % (Auto) Lymph # (Auto) [place] # (Auto) Eos # (Auto) Baso # (Auto) Abs Immat Gran (auto) Absolute Neuts (auto) Absolute Nucleated RBC Nucleated RBC % Puncture Site Right radial ABG pH 7.394 ABG pCO2 42.5 ABG pO2 73.3 L ABG PO2/FiO2 Ratio 1.83 ABG HCO3 25.4 ABG O2 Saturation 94.7 L ABG O2 Content 15.8 L ABG Base Excess 0.4 A-a Gradient 163.0 Oxyhemoglobin 93.5 Carboxyhemoglobin 0.3 Methemoglobin 0.3 Reduced Hemoglobin 5.9 H Total Hemoglobin 12.0 O2 Delivery Device Ventilator O2 Liters/Min Not Reportable Minute Volume Not Reportable Vent Rate 20 Vent Mode Cmv FiO2 40 Tidal Volume 400 PEEP 5 Peak Inspir Pressure Not Reportable Pressure Support Not Reportable Sodium 136 L Potassium 4.4 Chloride 105 Carbon Dioxide 28 Anion Gap 3 L BUN 18 H Creatinine 0.75 Estim Creat Clear Calc 55 Estimated GFR > 60 Glucose 325 H POC Capillary Glucose 308 H Calcium 8.6 Magnesium 2.0 Total Bilirubin 0.3 AST 19 ALT 18 Alkaline Phosphatase 89 Ammonia Total Creatine Kinase NT-Pro-B Natriuret Pep 7220 H Total Protein 6.0 L Albumin 2.8 L Triglycerides TSH (Reflex) Quality VTE Prophylaxis VTE prophylaxis: pharmacologic ordered
[2024-07-27] MEDS: SOTALOL HCL 80 MG TABLET FEED TUBE ×2 (08:46→20:04)
[2024-07-27] MEDS: APIXABAN 5 MG TABLET FEED TUBE ×2 (08:47→20:05)
[2024-07-27] MEDS: INSULIN GLARGINE (*BKC) 100 UNITS/ML 20 UNITS SUB-Q (08:47)
[2024-07-27] MEDS: PANTOPRAZOLE SODIUM IV 40 MG VIAL IV PUSH (08:47)
[2024-07-27] MEDS: methylPREDNISolone SOD SUCC 125 MG VIAL 80 MG IV PUSH (08:48)
[2024-07-27] MEDS: MINERAL OIL/WHITE PETROLATUM OINTMENT 1 APPLIC EACH EYE ×2 (08:48→20:06)
--- NOTE | 2024-07-27 09:53 | PCNFU ---
Nutrition Follow-Up Complete: Suboptimal Energy Intake as related to mechanical vent as evidenced by NPO. Goal: Meet estimated nutritional needs Patient is progressing towards goal. We will continue current goal. Pt current nutrition is Vital AF 1.2 at 40 m/hr. Last recorded weight is 82.3 kg, up from 76.6 kg on admit. Bowel Motility: +BM reported / Labs Reviewed: Glu 325, BUN 18, Na 136, Alb 2.8, Hgb 10.6, Hct 34.1 Meds Noted:Lantus, NovoLog, Meropenem Skin: WNL Additional Notes: Patient remains on mechanical vent. Tube feedings are being tolerated of Vital AF 1.2 at 40 ml/hr. Discussions with [employer] today regarding tube feedings rate. Propofol plans to be added today which will provide additional kcals. Current tube feeding meeting 96% kcal needs at 22 kcal/kg IBW. 72% protein needs at 1.2-1.4 gm/kg. Would recommend added Prosource BID for additional 40 gm protein. Agree with diet orders. Will monitor weight, labs, skin, diet orders, meds every Tuesday and Tuesday.
[2024-07-27 12:05] LABS: Glucose Point of Care 235 mg/dl (65-105)
--- NOTE | 2024-07-27 14:26 | P.PNIM_ITS ---
Progress Note: A&P Assessment and Plan (1) Type 2 diabetes mellitus with hypoglycemia and coma, with long-term current use of insulin: Code(s): E11.641 - Type 2 diabetes mellitus with hypoglycemia with coma; Z79.4 - terminal manager (current) use of insulin Status: Acute (2) Acute respiratory failure with hypoxia: Code(s): J96.01 - Acute respiratory failure with hypoxia Status: Acute (3) Acute UTI: Code(s): N39.0 - Urinary tract infection, site not specified Status: Acute (4) Altered mental status: Qualifiers: Altered mental status type: coma Coma depth: [place] coma 3-8 Coma timing: at hospital admission Qualified Code(s): R40.2433 - [place] coma scale score 3-8, at hospital admission Code(s): R41.82 - Altered mental status, unspecified Status: Acute (5) Pleural effusion: Code(s): J90 - Pleural effusion, not elsewhere classified Status: Acute Plan Severe hypoglycemia due to insulin use and likely associated decreased oral intake. Patient had profound persistent hypoglycemia despite glucose administration in had recurrence of hypoglycemia. Subsequently D5 W was started at 75 mL an hour. Will continue to check hourly Accu-Cheks until stabilized. The patient does have a classical coma Scale of 6 likely resultant encephalopathy from suspected hypoglycemic seizure given injury to the patient's tongue. There is likely some postictal state and some residual encephalopathy from hypoglycemia. CT of the head did not demonstrated any acute intercranial process. The patient has become a little bit more responsive and subsequently has required some sedation with fentanyl and Versed. The patient did have associated acute hypoxic respiratory failure due to the above factors requiring intubation. Initial ventilator settings were AC/CMV tidal volume 340 rate of 18 peep of 5 repeat ABG did demonstrate mild respiratory acidosis with hypercapnia. Subsequently tidal volume was increased to 360. Daily chest x-ray has been ordered. When the patient's history of COPD and in the setting of acquired intubation will place patient on scheduled nebulizer treatment. Patient has UA suggestive of UTI and had a low-grade fever with associated tachypnea and leukocytosis patient does fit sepsis criteria without evidence of septic shock. Patient was started on broad-spectrum antibiotics with meropenem. Blood cultures and urine cultures have been obtained. Patient's CT of the chest also demonstrated findings with possible underlying pneumonia given development of hypoxic respiratory failure and suspected seizure pneumonia/aspiration pneumonitis cannot be ruled out. Will broaden antibiotic coverage with azithromycin and vancomycin. Will obtain sputum culture. Will repeat CBC and electrolyte panel. Patient does have pleural effusion moderate in nature likely associated with pneumonia. CHF less likely given the patient had echocardiogram with normal systolic function and normal diastolic function in April of this year. She did have some mild pulmonary hypertension. Given the patient's underlying history of COPD in the setting of underlying pneumonia. patient remains on ventilator, seen by nuisance wildlife trapper and neurologist suspect metabolic encephalopathy 2/2 hypoglycemia resulting in seizure and unresponsiveness, patient was given IVF and glucose, and her blood sugars now trending up and close to normal, patient also has sepsis 2/2 UTI and aspiration pneumonia being treated with meropenem, patient now has Atrial fibrillation most likely triggered by hypoglycemia, aspiration pneumonia and uti, patient is on diltiazem drip and seen by career resource specialist. Subjective Date/time seen: 07/27/24 14:26 Interval history: Unresponsive H&P-Narrative: 74-year-old female with a past medical history insulin-dependent diabetes mellitus, essential hypertension, paroxysmal atrial fibrillation, hyperlipidemia chronic inhaled nicotine use, COPD with history of prior respiratory failure, pulmonary hypertension and chronic anemia among other chronic comorbidities who presented to the ER after being found unresponsive at home. The patient's daughter reports that see you last solid patient while before 16:30 on the 6. Daughter reported that she left to go to a ball game when she came home her mother was asleep. Daughter than got up and went to work the next day and when she came home from work around 630 p.m. she found the patient unresponsive and called EMS. EMS reported that the patient's initial blood sugar on arrival to the scene was 23 with a repeat reading of 36. Patient was given 1 dose of glucose on with no improvement in glucose in the patient was brought into the ER for evaluation. Patient was maintaining O2 sats on room air with the sats in the low 90s. The patient was unarousable and snoring in triage in repeat glu cose at that time was 11. Patient had a right femoral central line placed AMS could not obtain IV access and patient received an amp of D50 with repeat glucose on BMP of 286. However patient did trend back down within 3 hours down to 49. Patient did spike a fever after arrival to the ER and UA was suggestive of UTI. The patient remained obtunded despite improved blood sugars and she had evidence of bruising to the tongue suggesting recent seizure. The patient was subsequently intubated for airway protection. Patient also was having hypoxia on 15 L non-rebreather with sats down to 79% ABG 1 hour after intubation with an settings AC/CMP tidal volume of 340 peep of 5 rate of 18 and 50% FiO2 demonstrated pH of 7.37 pCO2 of 41.9 and PO2 of 72. Patient's urine was suggestive of UTI patient was started on meropenem. Blood cultures were obtained and are pending. CT of the head demonstrated no acute intercranial process. patient remains on ventilator, seen by nuisance wildlife trapper and neurologist suspect metabolic encephalopathy 2/2 hypoglycemia resulting in seizure and unresponsiveness, patient was given IVF and glucose, and her blood sugars now trending up and close to normal, patient also has sepsis 2/2 UTI and aspiration pneumonia being treated with meropenem, patient now has Atrial fibrillation most likely triggered by hypoglycemia, aspiration pneumonia and uti, patient is on diltiazem drip and seen by career resource specialist. Review of Systems Review of Systems: ROS unobtainable: Yes unobtainable due to endotracheal tube Exam Narrative: Patient is comfortable, NAD HEENT: ET tube in place LUNGS:CTA HEART: RR S1S2 ABD: BS+, Soft and nontender Lower extremities: no edema SKIN: nonjaundiced Neuro: On vent and sedated Objective Data Vital Signs Vital Signs: Vital Signs - 24 hr 07/26/24 14:31 07/26/24 14:31 07/26/24 14:50 Temperature Pulse Rate 100 97 124 H Respiratory Rate 20 Blood Pressure 107/58 L Pulse Oximetry 95 Oxygen Delivery Mechanical Ventilation Oxygen Flow Rate Fraction of Inspired Oxygen 40 07/26/24 15:16 07/26/24 16:00 07/26/24 16:00 Temperature Pulse Rate 125 H 57 L Respiratory Rate 20 Blood Pressure 140/77 Pulse Oximetry 96 Oxygen Delivery Mechanical Ventilation Oxygen Flow Rate 15 Fraction of Inspired Oxygen 40 40 07/26/24 16:00 07/26/24 16:00 07/26/24 16:25 Temperature 37.6 C H Pulse Rate 109 H 119 H 117 H Respiratory Rate 20 21 H Blood Pressure 151/68 H Pulse Oximetry 94 Oxygen Delivery Oxygen Flow Rate Fraction of Inspired Oxygen 07/26/24 16:59 07/26/24 17:37 07/26/24 18:00 Temperature Pulse Rate 115 H 122 H 120 H Respiratory Rate 21 H Blood Pressure 129/56 L Pulse Oximetry 94 Oxygen Delivery Mechanical Ventilation Oxygen Flow Rate Fraction of Inspired Oxygen 40 07/26/24 18:00 07/26/24 18:00 07/26/24 18:19 Temperature 37.7 C H Pulse Rate 116 H 116 H 121 H Respiratory Rate 21 H Blood Pressure 130/51 L 140/73 Pulse Oximetry 94 Oxygen Delivery Oxygen Flow Rate Fraction of Inspired Oxygen 07/26/24 18:19 07/26/24 20:00 07/26/24 20:00 Temperature Pulse Rate 121 H 105 H 113 H Respiratory Rate 23 H Blood Pressure 140/73 133/78 Pulse Oximetry Oxygen Delivery Oxygen Flow Rate Fraction of Inspired Oxygen 07/26/24 20:00 07/26/24 20:00 07/26/24 20:00 Temperature Pulse Rate 111 H 108 H Respiratory Rate 23 H Blood Pressure Pulse Oximetry 93 Oxygen Delivery Mechanical Ventilation Oxygen Flow Rate Fraction of Inspired Oxygen 40 40 07/26/24 20:00 07/26/24 20:24 07/26/24 20:24 Temperature 37.6 C Pulse Rate 111 H 113 H 113 H Respiratory Rate 23 H 25 H 25 H Blood Pressure 133/78 Pulse Oximetry 93 Oxygen Delivery Oxygen Flow Rate Fraction of Inspired Oxygen 07/26/24 20:29 07/26/24 20:35 07/26/24 20:41 Temperature Pulse Rate 113 H 108 H 133 H Respiratory Rate 18 Blood Pressure Pulse Oximetry 95 Oxygen Delivery Mechanical Ventilation Oxygen Flow Rate Fraction of Inspired Oxygen 40 07/26/24 22:00 07/26/24 22:00 07/26/24 22:00 Temperature Pulse Rate 97 97 97 Respiratory Rate 25 H Blood Pressure 121/63 Pulse Oximetry Oxygen Delivery Oxygen Flow Rate Fraction of Inspired Oxygen 07/26/24 22:00 07/26/24 22:24 07/26/24 22:33 Temperature 37.5 C Pulse Rate 97 69 63 Respiratory Rate 22 H Blood Pressure 121/63 116/64 100/49 L Pulse Oximetry 94 Oxygen Delivery Oxygen Flow Rate Fraction of Inspired Oxygen 07/26/24 23:23 07/26/24 23:38 07/27/24 00:00 Temperature Pulse Rate 76 74 106 H Respiratory Rate 28 H Blood Pressure 99/57 L Pulse Oximetry 96 94 Oxygen Delivery Mechanical Ventilation Mechanical Ventilation Oxygen Flow Rate Fraction of Inspired Oxygen 40 40 07/27/24 00:00 07/27/24 00:00 07/27/24 00:00 Temperature 37.3 C Pulse Rate 98 106 H Respiratory Rate 28 H Blood Pressure 142/65 H Pulse Oximetry 94 Oxygen Delivery Oxygen Flow Rate Fraction of Inspired Oxygen 40 07/27/24 00:00 07/27/24 00:00 07/27/24 01:59 Temperature Pulse Rate 106 H 106 H 79 Respiratory Rate 28 H Blood Pressure 142/65 H Pulse Oximetry 96 Oxygen Delivery Mechanical Ventilation Oxygen Flow Rate Fraction of Inspired Oxygen 40 07/27/24 02:00 07/27/24 02:00 07/27/24 02:00 Temperature 37.4 C Pulse Rate 107 H 107 H 107 H Respiratory Rate 25 H 25 H Blood Pressure 144/85 H Pulse Oximetry 96 Oxygen Delivery Oxygen Flow Rate Fraction of Inspired Oxygen 07/27/24 02:00 07/27/24 04:00 07/27/24 04:00 Temperature Pulse Rate 107 H 94 94 Respiratory Rate 20 Blood Pressure 144/85 H 104/56 L Pulse Oximetry Oxygen Delivery Oxygen Flow Rate Fraction of Inspired Oxygen 07/27/24 04:00 07/27/24 04:00 07/27/24 04:00 Temperature Pulse Rate 98 100 Respiratory Rate 21 H Blood Pressure Pulse Oximetry 95 Oxygen Delivery Mechanical Ventilation Oxygen Flow Rate Fraction of Inspired Oxygen 40 40 07/27/24 04:00 07/27/24 04:25 07/27/24 04:25 Temperature 37.3 C Pulse Rate 98 98 98 Respiratory Rate 21 H Blood Pressure 104/56 L 108/45 L 108/45 L Pulse Oximetry 95 Oxygen Delivery Oxygen Flow Rate Fraction of Inspired Oxygen 07/27/24 04:27 07/27/24 04:27 07/27/24 04:50 Temperature Pulse Rate 98 98 90 Respiratory Rate 22 H 22 H Blood Pressure Pulse Oximetry 97 Oxygen Delivery Mechanical Ventilation Oxygen Flow Rate Fraction of Inspired Oxygen 40 07/27/24 06:00 07/27/24 06:00 07/27/24 06:16 Temperature 37.4 C Pulse Rate 91 91 91 Respiratory Rate 19 Blood Pressure 121/51 L 121/51 L Pulse Oximetry 95 Oxygen Delivery Oxygen Flow Rate Fraction of Inspired Oxygen 07/27/24 06:17 07/27/24 07:31 07/27/24 08:00 Temperature Pulse Rate 91 112 H 137 H Respiratory Rate 20 26 H Blood Pressure 138/69 Pulse Oximetry Oxygen Delivery Oxygen Flow Rate Fraction of Inspired Oxygen 07/27/24 08:00 07/27/24 08:00 07/27/24 08:00 Temperature 37.6 C H Pulse Rate 129 H 136 H Respiratory Rate 26 H 26 H Blood Pressure 150/76 H Pulse Oximetry 95 95 Oxygen Delivery Mechanical Ventilation Oxygen Flow Rate Fraction of Inspired Oxygen 40 40 07/27/24 08:00 07/27/24 08:48 07/27/24 10:00 Temperature Pulse Rate 119 H 136 H 67 Respiratory Rate Blood Pressure Pulse Oximetry 95 Oxygen Delivery Mechanical Ventilation Oxygen Flow Rate Fraction of Inspired Oxygen 40 07/27/24 10:00 07/27/24 11:07 07/27/24 12:00 Temperature 37.8 C H 37.9 C H Pulse Rate 69 62 71 Respiratory Rate 24 H 21 H Blood Pressure 139/60 151/60 H Pulse Oximetry 96 96 96 Oxygen Delivery Mechanical Ventilation Oxygen Flow Rate Fraction of Inspired Oxygen 40 Intake/Output Intake/Output: Intake & Output 07/24/24 07/25/24 07/26/24 07/27/24 23:59 23:59 23:59 23:59 Intake Total 0.4 1575.0 840.7 Output Total 1660 950 Balance 0.4 -85.0 -109.3 Meds/Results Medications: Active Medications Generic Name Dose Route Start Last Admin Trade Name Freq PRN Reason Stop Dose Admin Albuterol 5 mg 07/26/24 10:06 Albuterol Sulfate Neb 2.5 Mg/3 Ml Inh INHALATION Q6HRT PRN Wheezing Apixaban 5 mg 07/26/24 09:00 07/27/24 08:47 Apixaban 5 Mg Tablet FEED TUBE 5 mg Q12HR TYREL Administration Dextrose 12.5 gm 07/27/24 07:28 Dextrose 50% 25 Gm/50 Ml Syringe IV PUSH PRN PRN Hypoglycemia Protocol Glucagon 1 mg 07/27/24 07:28 Glucagon For Inj 1 Mg Vial IM PRN PRN Hypoglycemia Protocol Glucose 15 gm 07/27/24 07:28 Glucose Oral Gel 15 Gm Of Glucse In 37.5 Gm Tube PO PRN PRN Hypoglycemia Protocol Meropenem 1 gm in 100 mls @ 200 mls/hr 07/26/24 06:00 07/27/24 13:06 IVPB 200 mls/hr Q8HR TYREL Administration Diltiazem HCl 100 mg in 100 mls @ 10 mls/hr 07/26/24 10:00 07/27/24 08:00 Cardizem 100 Mg/100 Ml IV CONT 10 mg/hr .Q10H TYREL 10 mls/hr Titration Protocol 10 MG/HR Propofol 100 mls @ 0 mls/hr 07/26/24 11:15 07/27/24 07:31 Diprivan IV CONT 0 mcg/kg/min .Q0M TYREL 0 mls/hr Titration Protocol Dextrose 1,000 mls @ 100 mls/hr 07/27/24 07:28 Dextrose 5% 1,000 Ml IVPB PRN PRN Hypoglycemia Protocol Insulin Aspart 4 - 8 units 07/27/24 07:30 07/27/24 13:06 Insulin Aspart (*Bkc) 100 Units/Ml SUB-Q 4 units Q4H TYREL Administration Protocol Insulin Glargine 20 units 07/27/24 09:00 07/27/24 08:47 Insulin Glargine (*Bkc) 100 Units/Ml SUB-Q 20 units QAM TYREL Administration Ipratropium [place] 0.5 mg 07/26/24 10:06 Ipratropium Br 0.02% Inh Soln 0.5 Mg/2.5 Ml Vial INHALATION Q6HRT PRN Wheezing Methylprednisolone Sodium Succinate 80 mg 07/26/24 10:05 07/27/24 08:48 Methylprednisolone Sod Succ 125 Mg Vial IV PUSH 80 mg QAM TYREL Administration Metoprolol Tartrate 5 mg 07/27/24 09:55 Metoprolol Tartrate Inj 5 Mg/5 Ml Vial IV PUSH Q4H PRN Tachycardia Multi-Ingred Cream/Lotion/Oil/Oint 1 applic 07/26/24 21:00 07/27/24 08:48 Mineral Oil/White Petrolatum Ointment EACH EYE 1 applic Q12HR TYREL Administration Pantoprazole Sodium 40 mg 07/26/24 09:00 07/27/24 08:47 Pantoprazole Sodium Iv 40 Mg Vial IV PUSH 40 mg DAILY TYREL Administration Perflutren Lipid Microsphere 0 ml 07/27/24 09:56 Perflutren Lipid Microspheres 1.5 Ml Vial Diluted To 10 Ml Total Volume IV PUSH 07/30/24 09:56 ONCE PRN adequate visualization Protocol Sodium Chloride 10 ml 07/26/24 22:00 07/27/24 05:28 Central Line Flush IV PUSH 10 ml Q8HR TYREL Administration Sodium Chloride 20 ml 07/26/24 20:30 07/27/24 05:28 Central Line Flush IV PUSH 20 ml PRN PRN Administration after blood draws Sotalol HCl 80 mg 07/26/24 09:00 07/27/24 08:46 Sotalol Hcl 80 Mg Tablet FEED TUBE 80 mg Q12HR TYREL Administration Radiology Results: ITS Impressions Head CT 07/25/24 21:08 Impression: No large acute intracranial hemorrhage or suspicious mass effect. Abdomen X-Ray 07/25/24 22:47 IMPRESSION: Endotracheal tube in good radiographic position. Orogastric tube in good position, and ready for immediate use. Redemonstration of a left upper lobe infiltrate, now with mild to moderate pulmonary vascular congestion Chest CT 07/26/24 05:14 Impression: Moderate left pleural effusion is increased from prior exam. Minimal right pleural effusion. Extensive presumed atelectatic changes in the left lower lobe and left upper lobe/lingula with mild right basilar atelectasis. Correlate clinically for pulmonary edema or pneumonia. Stable irregular airspace consolidation left lung apex, suggestive of chronic scarring or postinflammatory change. Correlate for acute pneumonia. Venous Doppler Study 07/26/24 11:15 IMPRESSION: 1: No lower extremity deep venous thrombosis. Chest X-Ray 07/27/24 06:27 Impression: Stable support tubes. Stable left perihilar consolidation, suspicious for pneumonia. Small left pleural effusion. Central congestive change. Labs Labs: Laboratory Results - last 24 hr 07/26/24 07/26/24 07/26/24 12:39 15:02 16:35 WBC RBC Hgb Hct MCV MCH MCHC RDW Plt Count MPV Puncture Site ABG pH ABG pCO2 ABG pO2 ABG PO2/FiO2 Ratio ABG HCO3 ABG O2 Saturation ABG O2 Content ABG Base Excess A-a Gradient Oxyhemoglobin Carboxyhemoglobin Methemoglobin Reduced Hemoglobin Total Hemoglobin O2 Delivery Device O2 Liters/Min Minute Volume Vent Rate Vent Mode FiO2 Tidal Volume PEEP Peak Inspir Pressure Pressure Support Sodium Potassium Chloride Carbon Dioxide Anion Gap BUN Creatinine Estim Creat Clear Calc Estimated GFR Glucose POC Capillary Glucose 214 H 211 H 225 H Calcium Magnesium Total Bilirubin AST ALT Alkaline Phosphatase NT-Pro-B Natriuret Pep Total Protein Albumin 07/26/24 07/26/24 07/26/24 17:51 18:50 20:37 WBC RBC Hgb Hct MCV MCH MCHC RDW Plt Count MPV Puncture Site ABG pH ABG pCO2 ABG pO2 ABG PO2/FiO2 Ratio ABG HCO3 ABG O2 Saturation ABG O2 Content ABG Base Excess A-a Gradient Oxyhemoglobin Carboxyhemoglobin Methemoglobin Reduced Hemoglobin Total Hemoglobin O2 Delivery Device O2 Liters/Min Minute Volume Vent Rate Vent Mode FiO2 Tidal Volume PEEP Peak Inspir Pressure Pressure Support Sodium Potassium Chloride Carbon Dioxide Anion Gap BUN Creatinine Estim Creat Clear Calc Estimated GFR Glucose POC Capillary Glucose 268 H 285 H 300 H Calcium Magnesium Total Bilirubin AST ALT Alkaline Phosphatase NT-Pro-B Natriuret Pep Total Protein Albumin 07/27/24 07/27/24 07/27/24 00:41 04:06 04:38 WBC 10.7 H RBC 3.40 L Hgb 10.6 L Hct 34.1 L MCV 100.3 H MCH 31.2 MCHC 31.1 L RDW 15.3 H Plt Count 171 MPV 10.9 H Puncture Site Right radial ABG pH 7.394 ABG pCO2 42.5 ABG pO2 73.3 L ABG PO2/FiO2 Ratio 1.83 ABG HCO3 25.4 ABG O2 Saturation 94.7 L ABG O2 Content 15.8 L ABG Base Excess 0.4 A-a Gradient 163.0 Oxyhemoglobin 93.5 Carboxyhemoglobin 0.3 Methemoglobin 0.3 Reduced Hemoglobin 5.9 H Total Hemoglobin 12.0 O2 Delivery Device Ventilator O2 Liters/Min Not Reportable Minute Volume Not Reportable Vent Rate 20 Vent Mode Cmv FiO2 40 Tidal Volume 400 PEEP 5 Peak Inspir Pressure Not Reportable Pressure Support Not Reportable Sodium 136 L Potassium 4.4 Chloride 105 Carbon Dioxide 28 Anion Gap 3 L BUN 18 H Creatinine 0.75 Estim Creat Clear Calc 55 Estimated GFR > 60 Glucose 325 H POC Capillary Glucose 297 H Calcium 8.6 Magnesium 2.0 Total Bilirubin 0.3 AST 19 ALT 18 Alkaline Phosphatase 89 NT-Pro-B Natriuret Pep 7220 H Total Protein 6.0 L Albumin 2.8 L 07/27/24 07/27/24 07:32 12:01 WBC RBC Hgb Hct MCV MCH MCHC RDW Plt Count MPV Puncture Site ABG pH ABG pCO2 ABG pO2 ABG PO2/FiO2 Ratio ABG HCO3 ABG O2 Saturation ABG O2 Content ABG Base Excess A-a Gradient Oxyhemoglobin Carboxyhemoglobin Methemoglobin Reduced Hemoglobin Total Hemoglobin O2 Delivery Device O2 Liters/Min Minute Volume Vent Rate Vent Mode FiO2 Tidal Volume PEEP Peak Inspir Pressure Pressure Support Sodium Potassium Chloride Carbon Dioxide Anion Gap BUN Creatinine Estim Creat Clear Calc Estimated GFR Glucose POC Capillary Glucose 308 H 235 H Calcium Magnesium Total Bilirubin AST ALT Alkaline Phosphatase NT-Pro-B Natriuret Pep Total Protein Albumin Quality VTE Prophylaxis VTE prophylaxis: pharmacologic ordered
[2024-07-27 17:54] LABS: Glucose Point of Care 281 mg/dl (65-105)
[2024-07-27 20:11] LABS: Glucose Point of Care 274 mg/dl (65-105)
[2024-07-28] VITALS (47 sets, daily range): BP systolic 135–159; BP diastolic 45–69; PULSE 46–76; RESP 16–23; TEMP 37–37.8; O2SAT 92–100
[2024-07-28] MEDS: INSULIN ASPART (*BKC) 100 UNITS/ML SUB-Q ×6 (00:05→20:35)
[2024-07-28 00:14] LABS: Glucose Point of Care 284 mg/dl (65-105)
[2024-07-28 04:24] LABS: Glucose Point of Care 256 mg/dl (65-105)
[2024-07-28 05:10] LABS: Alveolar/Arterial O2 Gradient 178.8 mmHg; Base Excess ABG 2.2 mEq/l (+/-2.0); Carboxyhemoglobin 0.4 % THb (0-2.0); Fractional Inspired Oxygen 40 %; Methemoglobin ABG 0.3 %THb (0-1.5); Oxygen Content ABG 14.3 %vol (16.0-22.0); Oxygen Saturation ABG 93.4 % (95.0-100.0); Oxyhemoglobin 91.9 % THb (90.0-100.0); PCO2 ABG 37.4 mmHg (35.0-45.0); PO2 ABG 63.4 mmHg (80.0-100.0); PO2 FiO2 Ratio Arterial Blood 1.59 %; Reduced Hemoglobin 7.4 %THb (0-5.0)
[2024-07-28 05:12] LABS: Device VENTILATOR; Modified Allen's Test Pass; Site Drawn RIGHT RADIAL
[2024-07-28 05:13] LABS: Arterial Blood Gas PEEP 5 cmH2O; Arterial Blood Gas Tidal Volume 400 ml; Arterial Blood Gas Vent Mode CMV; Arterial Blood Gas Ventilator rate 20 /MIN
[2024-07-28] MEDS: PROPOFOL IV EMULSION 100 ML 6.89 MG IV CONT (05:37)
[2024-07-28] MEDS: CENTRAL LINE FLUSH 10 ML IV PUSH ×3 (05:37→20:37)
[2024-07-28] MEDS: MEROPENEM 1 GM/NS 100 ML 1 GM/100 ML BAG IVPB ×3 (05:37→20:34)
[2024-07-28 05:47] LABS: Hematocrit 32.4 % (37.0-47.0); Hemoglobin 10.3 g/dL (12.0-15.0); Mean Corpuscular HGB Conc 31.8 g/dl (32-36); Mean Corpuscular Volume 100.6 fl (80-100); Mean Platelet Volume 10.8 fl (7.4-10.4); Platelet Count Result 190 k/mm3 (150-375); Red Blood Count 3.22 M/mm3 (4.2-5.4); Red Cell Distribution Width 15.3 % (11.5-14.5); White Blood Count 11.7 K/mm3 (4.5-10.0)
[2024-07-28 05:56] LABS: Alanine Aminotransferase 18 U/L (6-35); Alkaline Phosphatase 75 U/L (38-126); Anion Gap 4 mmol/L (4-12); Aspartate Amino Transferase 23 U/L (14-36); Bilirubin,Total 0.3 mg/dL (0.2-1.3); Blood Urea Nitrogen 26 mg/dL (7-17); Calcium 8.8 mg/dL (8.4-10.2); Carbon Dioxide 29 mmol/L (22-30); Chloride 105 mmol/L (98-107); Estimated CRCL calculation 54 ml/min; Estimated Glomerular Filt Rate > 60; Glucose 246 mg/dL (65-110); Magnesium 2.1 mg/dL (1.6-2.3); Sodium 138 mmol/L (137-145)
--- NOTE | 2024-07-28 06:46 | PM.PNCARD ---
Progress Note: A&P Assessment and Plan (1) Atrial fibrillation with rapid ventricular response: Code(s): I48.91 - Unspecified atrial fibrillation Status: Acute Assessment and Plan: -AFib is nonvalvular; TTE-showed normal LVEF 65-70%, diastolic dysfunction grade 1, moderately enlarged left atrium, mild MR and mild TR -she converted back to sinus rhythm last night with rates in the 60s. She remains in sinus rhythm this morning -Continue anticoagulation with Eliquis -Continue Sotalol at home does -Check and replace electrolytes as needed to keep K>4 and Mg>2 Subjective Date/time seen: 07/28/24 06:46 Interval history: Reason for encounter: AFib with RVR Relevant history: 74 year old female with past medical history of insulin-dependent diabetes mellitus, essential hypertension, paroxysmal atrial fibrillation on sotalol and apixaban, hyperlipidemia, tobacco abuse, COPD with history of prior respiratory failure, pulmonary hypertension and chronic anemia who was brought to the ER last night after she was found unresponsive at home. EMS found patient's blood sugar was 23. She was administered 1 dose of glucose with no significant improvement in blood glucose. Patient was then brought to ER. Patient was hypoxic and was placed on supplemental oxygen. Patient was not protecting her airway and was intubated and placed on mechanical ventilation. Blood glucose eventually improved after administration of multiple amps of D50. There was no improvement with Narcan. UA was suggestive of UTI and she was started on antibiotic. When she presented to the ER she was in SR but went into A fib with RVR and cardiology was consulted for further recommendations. She was started on Cardizem drip and her home sotalol was continued. Interval history: Patient converted back to sinus rhythm yesterday. This morning she remains in sinus rhythm with rates in the 60s. She is intubated and sedated and unable to obtain any further history. Review of Systems Review of Systems: A complete review of systems could not be performed as patient is intubated and sedated. Exam Narrative: General: intubated and sedated, no acute distress Neck: Supple, JVD + Chest: Bilaterally clear to auscultation, no rales or rhonchi Cardiac: S1, S2 +, irregular rate and rhythm, no murmurs or rubs Extremities: Bilateral lower extremity edema 1+, no skin rash Neurologic: Intubated and sedated Objective Data Vital Signs Vital Signs: Vital Signs - 24 hr 07/27/24 07:31 07/27/24 08:00 07/27/24 08:00 Temperature 37.6 C H Pulse Rate 112 H 137 H 129 H Respiratory Rate 26 H 26 H Blood Pressure 138/69 150/76 H Pulse Oximetry 95 Oxygen Delivery Fraction of Inspired Oxygen 07/27/24 08:00 07/27/24 08:00 07/27/24 08:00 Temperature Pulse Rate 136 H 119 H Respiratory Rate 26 H Blood Pressure Pulse Oximetry 95 Oxygen Delivery Mechanical Ventilation Fraction of Inspired Oxygen 40 40 07/27/24 08:48 07/27/24 10:00 07/27/24 10:00 Temperature 37.8 C H Pulse Rate 136 H 67 69 Respiratory Rate 24 H Blood Pressure 139/60 Pulse Oximetry 95 96 Oxygen Delivery Mechanical Ventilation Fraction of Inspired Oxygen 40 07/27/24 10:00 07/27/24 10:36 07/27/24 11:07 Temperature Pulse Rate 72 62 62 Respiratory Rate 22 H Blood Pressure Pulse Oximetry 96 Oxygen Delivery Mechanical Ventilation Fraction of Inspired Oxygen 40 07/27/24 12:00 07/27/24 12:00 07/27/24 12:00 Temperature 37.9 C H Pulse Rate 71 72 Respiratory Rate 21 H 26 H Blood Pressure 151/60 H Pulse Oximetry 96 95 Oxygen Delivery Mechanical Ventilation Fraction of Inspired Oxygen 40 40 07/27/24 12:00 07/27/24 12:00 07/27/24 14:00 Temperature 37.8 C H Pulse Rate 66 70 67 Respiratory Rate 20 17 Blood Pressure 140/55 L Pulse Oximetry 97 Oxygen Delivery Fraction of Inspired Oxygen 07/27/24 14:00 07/27/24 14:00 07/27/24 14:30 Temperature Pulse Rate 67 67 72 Respiratory Rate 17 Blood Pressure Pulse Oximetry 96 Oxygen Delivery Mechanical Ventilation Fraction of Inspired Oxygen 40 07/27/24 16:00 07/27/24 16:00 07/27/24 16:00 Temperature 37.7 C H Pulse Rate 80 80 Respiratory Rate 30 H 26 H Blood Pressure 163/64 H Pulse Oximetry 95 95 Oxygen Delivery Mechanical Ventilation Fraction of Inspired Oxygen 40 40 07/27/24 16:00 07/27/24 16:00 07/27/24 17:06 Temperature Pulse Rate 80 80 79 Respiratory Rate 30 H Blood Pressure Pulse Oximetry 96 Oxygen Delivery Mechanical Ventilation Fraction of Inspired Oxygen 40 07/27/24 18:00 07/27/24 18:00 07/27/24 18:24 Temperature 37.3 C Pulse Rate 73 76 77 Respiratory Rate 24 H 29 H Blood Pressure 171/60 H Pulse Oximetry 93 Oxygen Delivery Fraction of Inspired Oxygen 07/27/24 19:30 07/27/24 20:00 07/27/24 20:00 Temperature Pulse Rate 75 58 L Respiratory Rate 30 H Blood Pressure Pulse Oximetry 96 Oxygen Delivery Mechanical Ventilation Fraction of Inspired Oxygen 40 07/27/24 20:00 07/27/24 20:00 07/27/24 20:04 Temperature 37.4 C Pulse Rate 58 L 60 Respiratory Rate 20 Blood Pressure 142/48 H Pulse Oximetry 96 Oxygen Delivery Fraction of Inspired Oxygen 40 07/27/24 20:05 07/27/24 20:15 07/27/24 22:00 Temperature Pulse Rate 59 L 69 56 L Respiratory Rate 20 20 Blood Pressure Pulse Oximetry 100 Oxygen Delivery Mechanical Ventilation Fraction of Inspired Oxygen 40 07/27/24 22:00 07/27/24 22:00 07/27/24 23:12 Temperature 37.2 C Pulse Rate 56 L 56 L 68 Respiratory Rate 20 Blood Pressure 121/51 L Pulse Oximetry 96 100 Oxygen Delivery Mechanical Ventilation Fraction of Inspired Oxygen 40 07/28/24 00:00 07/28/24 00:00 07/28/24 00:00 Temperature Pulse Rate 61 Respiratory Rate Blood Pressure Pulse Oximetry 99 Oxygen Delivery Mechanical Ventilation Fraction of Inspired Oxygen 40 40 07/28/24 00:00 07/28/24 00:05 07/28/24 02:00 Temperature 37.2 C Pulse Rate 61 62 65 Respiratory Rate 20 21 H Blood Pressure 159/55 H Pulse Oximetry 99 Oxygen Delivery Fraction of Inspired Oxygen 07/28/24 02:00 07/28/24 02:00 07/28/24 02:08 Temperature 37.3 C Pulse Rate 62 65 69 Respiratory Rate 22 H 22 H Blood Pressure 148/56 H Pulse Oximetry 99 98 Oxygen Delivery Mechanical Ventilation Fraction of Inspired Oxygen 40 07/28/24 04:00 07/28/24 04:00 07/28/24 04:00 Temperature 37.4 C Pulse Rate 57 L 57 L 57 L Respiratory Rate 20 20 Blood Pressure 135/48 L Pulse Oximetry 97 Oxygen Delivery Fraction of Inspired Oxygen 07/28/24 04:00 07/28/24 04:00 07/28/24 05:02 Temperature Pulse Rate 57 L Respiratory Rate 21 H Blood Pressure Pulse Oximetry 97 Oxygen Delivery Mechanical Ventilation Fraction of Inspired Oxygen 40 40 07/28/24 05:15 07/28/24 05:37 07/28/24 06:00 Temperature Pulse Rate 60 57 L 65 Respiratory Rate 21 H Blood Pressure Pulse Oximetry 100 Oxygen Delivery Mechanical Ventilation Fraction of Inspired Oxygen 40 07/28/24 06:00 07/28/24 06:03 Temperature 37.2 C Pulse Rate 65 65 Respiratory Rate 21 H 21 H Blood Pressure 155/50 H Pulse Oximetry 99 Oxygen Delivery Fraction of Inspired Oxygen Intake/Output Intake/Output: Intake & Output 07/25/24 07/26/24 07/27/24 07/28/24 23:59 23:59 23:59 23:59 Intake Total 0.4 1575.0 1643.9 685.5 Output Total 1660 1700 475 Balance 0.4 -85.0 -56.1 210.5 Meds/Results Medications: Active Medications Generic Name Dose Route Start Last Admin Trade Name Freq PRN Reason Stop Dose Admin Albuterol 5 mg 07/26/24 10:06 Albuterol Sulfate Neb 2.5 Mg/3 Ml Inh INHALATION Q6HRT PRN Wheezing Apixaban 5 mg 07/26/24 09:00 07/27/24 20:05 Apixaban 5 Mg Tablet FEED TUBE 5 mg Q12HR TYREL Administration Dextrose 12.5 gm 07/27/24 07:28 Dextrose 50% 25 Gm/50 Ml Syringe IV PUSH PRN PRN Hypoglycemia Protocol Glucagon 1 mg 07/27/24 07:28 Glucagon For Inj 1 Mg Vial IM PRN PRN Hypoglycemia Protocol Glucose 15 gm 07/27/24 07:28 Glucose Oral Gel 15 Gm Of Glucse In 37.5 Gm Tube PO PRN PRN Hypoglycemia Protocol Meropenem 1 gm in 100 mls @ 200 mls/hr 07/26/24 06:00 07/28/24 06:07 IVPB Infused Q8HR TYREL Infusion Propofol 100 mls @ 4.596 mls/hr 07/26/24 11:15 07/28/24 06:03 Diprivan IV CONT 10 mcg/kg/min .[id number] TYREL 4.6 mls/hr Titration Protocol 10 MCG/KG/MIN Dextrose 1,000 mls @ 100 mls/hr 07/27/24 07:28 Dextrose 5% 1,000 Ml IVPB PRN PRN Hypoglycemia Protocol Insulin Aspart 4 - 8 units 07/27/24 07:30 07/28/24 04:24 Insulin Aspart (*Bkc) 100 Units/Ml SUB-Q 5 units Q4H TYREL Administration Protocol Insulin Glargine 20 units 07/27/24 09:00 07/27/24 08:47 Insulin Glargine (*Bkc) 100 Units/Ml SUB-Q 20 units QAM TYREL Administration Ipratropium [place] 0.5 mg 07/26/24 10:06 Ipratropium Br 0.02% Inh Soln 0.5 Mg/2.5 Ml Vial INHALATION Q6HRT PRN Wheezing Methylprednisolone Sodium Succinate 80 mg 07/26/24 10:05 07/27/24 08:48 Methylprednisolone Sod Succ 125 Mg Vial IV PUSH 80 mg QAM TYREL Administration Metoprolol Tartrate 5 mg 07/27/24 09:55 Metoprolol Tartrate Inj 5 Mg/5 Ml Vial IV PUSH Q4H PRN Tachycardia Multi-Ingred Cream/Lotion/Oil/Oint 1 applic 07/26/24 21:00 07/27/24 20:06 Mineral Oil/White Petrolatum Ointment EACH EYE 1 applic Q12HR TYREL Administration Pantoprazole Sodium 40 mg 07/26/24 09:00 07/27/24 08:47 Pantoprazole Sodium Iv 40 Mg Vial IV PUSH 40 mg DAILY TYREL Administration Perflutren Lipid Microsphere 0 ml 07/27/24 09:56 Perflutren Lipid Microspheres 1.5 Ml Vial Diluted To 10 Ml Total Volume IV PUSH 07/30/24 09:56 ONCE PRN adequate visualization Protocol Sodium Chloride 10 ml 07/26/24 22:00 07/28/24 05:37 Central Line Flush IV PUSH 10 ml Q8HR TYREL Administration Sodium Chloride 20 ml 07/26/24 20:30 07/27/24 05:28 Central Line Flush IV PUSH 20 ml PRN PRN Administration after blood draws Sotalol HCl 80 mg 07/26/24 09:00 07/27/24 20:04 Sotalol Hcl 80 Mg Tablet FEED TUBE 80 mg Q12HR TYREL Administration Radiology Results: ITS Impressions Head CT 07/25/24 21:08 Impression: No large acute intracranial hemorrhage or suspicious mass effect. Abdomen X-Ray 07/25/24 22:47 IMPRESSION: Endotracheal tube in good radiographic position. Orogastric tube in good position, and ready for immediate use. Redemonstration of a left upper lobe infiltrate, now with mild to moderate pulmonary vascular congestion Chest CT 07/26/24 05:14 Impression: Moderate left pleural effusion is increased from prior exam. Minimal right pleural effusion. Extensive presumed atelectatic changes in the left lower lobe and left upper lobe/lingula with mild right basilar atelectasis. Correlate clinically for pulmonary edema or pneumonia. Stable irregular airspace consolidation left lung apex, suggestive of chronic scarring or postinflammatory change. Correlate for acute pneumonia. Venous Doppler Study 07/26/24 11:15 IMPRESSION: 1: No lower extremity deep venous thrombosis. Labs Labs: Laboratory Results - last 24 hr 07/27/24 07/27/24 07/27/24 04:06 07:32 12:01 WBC RBC Hgb Hct MCV MCH MCHC RDW Plt Count MPV Puncture Site ABG pH ABG pCO2 ABG pO2 ABG PO2/FiO2 Ratio ABG HCO3 ABG O2 Saturation ABG O2 Content ABG Base Excess A-a Gradient Oxyhemoglobin Carboxyhemoglobin Methemoglobin Reduced Hemoglobin Total Hemoglobin O2 Delivery Device O2 Liters/Min Minute Volume Vent Rate Vent Mode FiO2 Tidal Volume PEEP Peak Inspir Pressure Pressure Support Sodium Potassium Chloride Carbon Dioxide Anion Gap BUN Creatinine Estim Creat Clear Calc Estimated GFR Glucose POC Capillary Glucose 308 H 235 H Calcium Magnesium Total Bilirubin AST ALT Alkaline Phosphatase NT-Pro-B Natriuret Pep 7220 H Total Protein Albumin 07/27/24 07/27/24 07/28/24 17:02 20:03 00:04 WBC RBC Hgb Hct MCV MCH MCHC RDW Plt Count MPV Puncture Site ABG pH ABG pCO2 ABG pO2 ABG PO2/FiO2 Ratio ABG HCO3 ABG O2 Saturation ABG O2 Content ABG Base Excess A-a Gradient Oxyhemoglobin Carboxyhemoglobin Methemoglobin Reduced Hemoglobin Total Hemoglobin O2 Delivery Device O2 Liters/Min Minute Volume Vent Rate Vent Mode FiO2 Tidal Volume PEEP Peak Inspir Pressure Pressure Support Sodium Potassium Chloride Carbon Dioxide Anion Gap BUN Creatinine Estim Creat Clear Calc Estimated GFR Glucose POC Capillary Glucose 281 H 274 H 284 H Calcium Magnesium Total Bilirubin AST ALT Alkaline Phosphatase NT-Pro-B Natriuret Pep Total Protein Albumin 07/28/24 07/28/24 07/28/24 04:21 04:53 05:41 WBC 11.7 H RBC 3.22 L Hgb 10.3 L Hct 32.4 L MCV 100.6 H MCH 32.0 MCHC 31.8 L RDW 15.3 H Plt Count 190 MPV 10.8 H Puncture Site Right radial ABG pH 7.460 H ABG pCO2 37.4 ABG pO2 63.4 L ABG PO2/FiO2 Ratio 1.59 ABG HCO3 26.0 ABG O2 Saturation 93.4 L ABG O2 Content 14.3 L ABG Base Excess 2.2 A-a Gradient 178.8 Oxyhemoglobin 91.9 Carboxyhemoglobin 0.4 Methemoglobin 0.3 Reduced Hemoglobin 7.4 H Total Hemoglobin 11.0 L O2 Delivery Device Ventilator O2 Liters/Min Not Reportable Minute Volume Not Reportable Vent Rate 20 Vent Mode Cmv FiO2 40 Tidal Volume 400 PEEP 5 Peak Inspir Pressure Not Reportable Pressure Support Not Reportable Sodium 138 Potassium 4.0 Chloride 105 Carbon Dioxide 29 Anion Gap 4 BUN 26 H Creatinine 0.79 Estim Creat Clear Calc 54 Estimated GFR > 60 Glucose 246 H POC Capillary Glucose 256 H Calcium 8.8 Magnesium 2.1 Total Bilirubin 0.3 AST 23 ALT 18 Alkaline Phosphatase 75 NT-Pro-B Natriuret Pep Total Protein 6.0 L Albumin 3.0 L
[2024-07-28 08:10] LABS: Glucose Point of Care 209 mg/dl (65-105)
--- NOTE | 2024-07-28 08:13 | WPDINTPN ---
Progress Note: A&P Assessment and Plan (1) Acute respiratory failure with hypoxia: Code(s): J96.01 - Acute respiratory failure with hypoxia Status: Acute Assessment and Plan: Acute respiratory failure secondary to altered mental status, aspiration pneumonia with underlying COPD CT scan chest x-ray ABG on vent settings reviewed Continue FiO2 at 40%, change tidal volume to 380, rate 20 and change PEEP to 8 Continue Bronchodilator and Steroids Management of pneumonia as below Decrease steroid dose (2) Altered mental status: Qualifiers: Altered mental status type: coma Coma depth: Agrry coma 3-8 Coma timing: at hospital admission Qualified Code(s): R40.2433 - Garry coma scale score 3-8, at hospital admission Code(s): R41.82 - Altered mental status, unspecified Status: Acute Assessment and Plan: Patient presented with unresponsiveness and hypoglycemia. Patient was down for a prolonged period of time This could be secondary to hypoglycemia or she may have had seizure and was postictal. Currently sedated Head CT was negative 06/27 Versed and fentanyl. Was switched to propofol EEG pending Neurology consult Normal ammonia and TSH Unable to obtain MRI on a vented patient at [facility] Will perform sedation holiday and assess neuro status (3) Sepsis: Code(s): A41.9 - Sepsis, unspecified organism Status: Acute Assessment and Plan: Sepsis secondary to UTI and pneumonia which is likely aspiration UA suggestive of UTI Chest CT reviewed Blood sputum and urine culture ordered and pending Continue meropenem. Will discontinue vancomycin as MRSA screen is negative (4) Atrial fibrillation with rapid ventricular response: Code(s): I48.91 - Unspecified atrial fibrillation Status: Acute Assessment and Plan: Patient has history of AFib and is on sotalol as an outpatient When patient came in she was in sinus rhythm but after admission she has gone into AFib with RVR After discussion with Cardiology. Patient was started on diltiazem infusion for rate control and continue sotalol this time. If patient does not tolerate diltiazem she may need amiodarone infusion while monitoring a QTC. Most recent QTC on EKG was 442 Continue apixaban 07/27 patient converted to sinus rhythm and diltiazem infusion was discontinued. Switch apixaban to Lovenox in case patient needs invasive procedures (5) Insulin dependent type 2 diabetes mellitus: Code(s): E11.9 - Type 2 diabetes mellitus without complications; Z79.4 - residential (current) use of insulin Status: Acute Assessment and Plan: Hypoglycemia has resolved. Patient is now on SSI and Lantus Increase Lantus to 30 Decrease steroid (6) Hypoglycemia: Code(s): E16.2 - Hypoglycemia, unspecified Status: Acute Assessment and Plan: Patient presented with hypoglycemia and was treated with D50 push and now is on D10 water Hypoglycemia has now resolved and patient is off of IV fluids with dextrose. Management of diabetes as above (7) Acute UTI: Code(s): N39.0 - Urinary tract infection, site not specified Status: Acute Assessment and Plan: See above (8) Pneumonia: Code(s): J18.9 - Pneumonia, unspecified organism Status: Acute Assessment and Plan: See above (9) Chronic obstructive pulmonary disease: Code(s): J44.9 - Chronic obstructive pulmonary disease, unspecified Status: Acute Assessment and Plan: See above (10) Swelling of lower extremity: Code(s): M79.89 - Other specified soft tissue disorders Status: Acute Assessment and Plan: Bilateral pitting edema Bilateral lower extremity Dopplers negative for DVT Patient likely has right heart failure from her COPD Plan DVT prophylaxis -apixaban Stress ulcer prophylaxis -Protonix Nutrition -continue Tube Feeds Code Status - Full Code Total Critical Care Time - 30 minutes Due to a high probability of clinically significant, life threatening deterioration, the patient required my highest level of preparedness to intervene emergently and I personally spent this critical care time directly and personally managing the patient. This critical care time included obtaining a history; examining the patient; pulse oximetry; ordering and review of studies; arranging urgent treatment with development of a management plan; evaluation of patient's response to treatment; frequent reassessment; and discussions with other providers. It was exclusive of separately billable procedures and treating other patients and teaching time. Please see Assessment and Plan section and the rest of the note for further information on patient assessment and treatment Subjective Date/time seen: 07/28/24 Overnight events reviewed. Afebrile Continues to be on mechanical ventilation 40% FiO2 Tolerating tube feed Acceptable urine output Off diltiazem in sinus rhythm now Continues to be sedated with propofol Other Vitals acceptable Review of Systems Review of Systems: ROS unobtainable: Yes unobtainable due to endotracheal tube, unobtainable due to medical condition and unobtainable due to mental status Exam Narrative: General: Pt is sedated, intubated and on mechanical ventilation Lungs/Chest: Trachea central Coarse BS B/L, no wheezing Cardiac: A regular rate and rhythm. Normal S1 S2. No murmurs Circulation: Pedal pulses are intact and symmetrical. Abdomen: Decreased bowel sounds.. Soft. NT. ND. Extremities: Bilateral pitting edema present right more than left : [place] in place Neurologic: Unable to fully assess due to patient being on propofol in few. On holding propofol infusion patient withdraws to pain in all 4 extremities but no purposeful movement as this time. She does open her eyes on stimulation but does not follow any command.PERRL Objective Data Vital Signs Vital Signs: Vital Signs - 24 hr 07/27/24 08:48 07/27/24 10:00 07/27/24 10:00 Temperature 37.8 C H Pulse Rate 136 H 67 69 Respiratory Rate 24 H Blood Pressure 139/60 Pulse Oximetry 95 96 Oxygen Delivery Mechanical Ventilation Fraction of Inspired Oxygen 40 07/27/24 10:00 07/27/24 10:36 07/27/24 11:07 Temperature Pulse Rate 72 62 62 Respiratory Rate 22 H Blood Pressure Pulse Oximetry 96 Oxygen Delivery Mechanical Ventilation Fraction of Inspired Oxygen 40 07/27/24 12:00 07/27/24 12:00 07/27/24 12:00 Temperature 37.9 C H Pulse Rate 71 72 Respiratory Rate 21 H 26 H Blood Pressure 151/60 H Pulse Oximetry 96 95 Oxygen Delivery Mechanical Ventilation Fraction of Inspired Oxygen 40 40 07/27/24 12:00 07/27/24 12:00 07/27/24 14:00 Temperature 37.8 C H Pulse Rate 66 70 67 Respiratory Rate 20 17 Blood Pressure 140/55 L Pulse Oximetry 97 Oxygen Delivery Fraction of Inspired Oxygen 07/27/24 14:00 07/27/24 14:00 07/27/24 14:30 Temperature Pulse Rate 67 67 72 Respiratory Rate 17 Blood Pressure Pulse Oximetry 96 Oxygen Delivery Mechanical Ventilation Fraction of Inspired Oxygen 40 07/27/24 16:00 07/27/24 16:00 07/27/24 16:00 Temperature 37.7 C H Pulse Rate 80 80 Respiratory Rate 30 H 26 H Blood Pressure 163/64 H Pulse Oximetry 95 95 Oxygen Delivery Mechanical Ventilation Fraction of Inspired Oxygen 40 40 07/27/24 16:00 07/27/24 16:00 07/27/24 17:06 Temperature Pulse Rate 80 80 79 Respiratory Rate 30 H Blood Pressure Pulse Oximetry 96 Oxygen Delivery Mechanical Ventilation Fraction of Inspired Oxygen 40 07/27/24 18:00 07/27/24 18:00 07/27/24 18:24 Temperature 37.3 C Pulse Rate 73 76 77 Respiratory Rate 24 H 29 H Blood Pressure 171/60 H Pulse Oximetry 93 Oxygen Delivery Fraction of Inspired Oxygen 07/27/24 19:30 07/27/24 20:00 07/27/24 20:00 Temperature Pulse Rate 75 58 L Respiratory Rate 30 H Blood Pressure Pulse Oximetry 96 Oxygen Delivery Mechanical Ventilation Fraction of Inspired Oxygen 40 07/27/24 20:00 07/27/24 20:00 07/27/24 20:04 Temperature 37.4 C Pulse Rate 58 L 60 Respiratory Rate 20 Blood Pressure 142/48 H Pulse Oximetry 96 Oxygen Delivery Fraction of Inspired Oxygen 40 07/27/24 20:05 07/27/24 20:15 07/27/24 22:00 Temperature Pulse Rate 59 L 69 56 L Respiratory Rate 20 20 Blood Pressure Pulse Oximetry 100 Oxygen Delivery Mechanical Ventilation Fraction of Inspired Oxygen 40 07/27/24 22:00 07/27/24 22:00 07/27/24 23:12 Temperature 37.2 C Pulse Rate 56 L 56 L 68 Respiratory Rate 20 Blood Pressure 121/51 L Pulse Oximetry 96 100 Oxygen Delivery Mechanical Ventilation Fraction of Inspired Oxygen 40 07/28/24 00:00 07/28/24 00:00 07/28/24 00:00 Temperature Pulse Rate 61 Respiratory Rate Blood Pressure Pulse Oximetry 99 Oxygen Delivery Mechanical Ventilation Fraction of Inspired Oxygen 40 40 07/28/24 00:00 07/28/24 00:05 07/28/24 02:00 Temperature 37.2 C Pulse Rate 61 62 65 Respiratory Rate 20 21 H Blood Pressure 159/55 H Pulse Oximetry 99 Oxygen Delivery Fraction of Inspired Oxygen 07/28/24 02:00 07/28/24 02:00 07/28/24 02:08 Temperature 37.3 C Pulse Rate 62 65 69 Respiratory Rate 22 H 22 H Blood Pressure 148/56 H Pulse Oximetry 99 98 Oxygen Delivery Mechanical Ventilation Fraction of Inspired Oxygen 40 07/28/24 04:00 07/28/24 04:00 07/28/24 04:00 Temperature 37.4 C Pulse Rate 57 L 57 L 57 L Respiratory Rate 20 20 Blood Pressure 135/48 L Pulse Oximetry 97 Oxygen Delivery Fraction of Inspired Oxygen 07/28/24 04:00 07/28/24 04:00 07/28/24 05:02 Temperature Pulse Rate 57 L Respiratory Rate 21 H Blood Pressure Pulse Oximetry 97 Oxygen Delivery Mechanical Ventilation Fraction of Inspired Oxygen 40 40 07/28/24 05:15 07/28/24 05:37 07/28/24 06:00 Temperature Pulse Rate 60 57 L 65 Respiratory Rate 21 H Blood Pressure Pulse Oximetry 100 Oxygen Delivery Mechanical Ventilation Fraction of Inspired Oxygen 40 07/28/24 06:00 07/28/24 06:03 07/28/24 06:49 Temperature 37.2 C Pulse Rate 65 65 53 L Respiratory Rate 21 H 21 H 20 Blood Pressure 155/50 H Pulse Oximetry 99 Oxygen Delivery Fraction of Inspired Oxygen 07/28/24 07:00 07/28/24 07:30 07/28/24 08:00 Temperature 37.1 C Pulse Rate 49 L 69 76 Respiratory Rate 20 16 23 H Blood Pressure 157/57 H Pulse Oximetry 97 Oxygen Delivery Fraction of Inspired Oxygen Intake/Output Intake/Output: Intake & Output 07/25/24 07/26/24 07/27/24 07/28/24 23:59 23:59 23:59 23:59 Intake Total 0.4 1575.0 1643.9 690.6 Output Total 1660 1700 475 Balance 0.4 -85.0 -56.1 215.6 Meds/Results Medications: Active Medications Generic Name Dose Route Start Last Admin Trade Name Freq PRN Reason Stop Dose Admin Albuterol 5 mg 07/26/24 10:06 Albuterol Sulfate Neb 2.5 Mg/3 Ml Inh INHALATION Q6HRT PRN Wheezing Apixaban 5 mg 07/26/24 09:00 07/27/24 20:05 Apixaban 5 Mg Tablet FEED TUBE 5 mg Q12HR TYREL Administration Dextrose 12.5 gm 07/27/24 07:28 Dextrose 50% 25 Gm/50 Ml Syringe IV PUSH PRN PRN Hypoglycemia Protocol Glucagon 1 mg 07/27/24 07:28 Glucagon For Inj 1 Mg Vial IM PRN PRN Hypoglycemia Protocol Glucose 15 gm 07/27/24 07:28 Glucose Oral Gel 15 Gm Of Glucse In 37.5 Gm Tube PO PRN PRN Hypoglycemia Protocol Meropenem 1 gm in 100 mls @ 200 mls/hr 07/26/24 06:00 07/28/24 06:07 IVPB Infused Q8HR TYREL Infusion Propofol 100 mls @ 0 mls/hr 07/26/24 11:15 07/28/24 07:30 Diprivan IV CONT 0 mcg/kg/min .Q0M TYREL 0 mls/hr Titration Protocol 0 MCG/KG/MIN Dextrose 1,000 mls @ 100 mls/hr 07/27/24 07:28 Dextrose 5% 1,000 Ml IVPB PRN PRN Hypoglycemia Protocol Insulin Aspart 4 - 8 units 07/27/24 07:30 07/28/24 04:24 Insulin Aspart (*Bkc) 100 Units/Ml SUB-Q 5 units Q4H TYREL Administration Protocol Insulin Glargine 30 units 07/28/24 09:00 Insulin Glargine (*Bkc) 100 Units/Ml SUB-Q QAM TYREL Ipratropium Castine 0.5 mg 07/26/24 10:06 Ipratropium Br 0.02% Inh Soln 0.5 Mg/2.5 Ml Vial INHALATION Q6HRT PRN Wheezing Methylprednisolone Sodium Succinate 40 mg 07/28/24 09:00 Methylprednisolone Sod Succ 40 Mg Vial IV PUSH QAM TYREL Metoprolol Tartrate 5 mg 07/27/24 09:55 Metoprolol Tartrate Inj 5 Mg/5 Ml Vial IV PUSH Q4H PRN Tachycardia Multi-Ingred Cream/Lotion/Oil/Oint 1 applic 07/26/24 21:00 07/27/24 20:06 Mineral Oil/White Petrolatum Ointment EACH EYE 1 applic Q12HR TYREL Administration Pantoprazole Sodium 40 mg 07/26/24 09:00 07/27/24 08:47 Pantoprazole Sodium Iv 40 Mg Vial IV PUSH 40 mg DAILY TYREL Administration Perflutren Lipid Microsphere 0 ml 07/27/24 09:56 Perflutren Lipid Microspheres 1.5 Ml Vial Diluted To 10 Ml Total Volume IV PUSH 07/30/24 09:56 ONCE PRN adequate visualization Protocol Sodium Chloride 10 ml 07/26/24 22:00 07/28/24 05:37 Central Line Flush IV PUSH 10 ml Q8HR TYREL Administration Sodium Chloride 20 ml 07/26/24 20:30 07/27/24 05:28 Central Line Flush IV PUSH 20 ml PRN PRN Administration after blood draws Sotalol HCl 80 mg 07/26/24 09:00 07/27/24 20:04 Sotalol Hcl 80 Mg Tablet FEED TUBE 80 mg Q12HR TYREL Administration Radiology Results: ITS Impressions Head CT 07/25/24 21:08 Impression: No large acute intracranial hemorrhage or suspicious mass effect. Abdomen X-Ray 07/25/24 22:47 IMPRESSION: Endotracheal tube in good radiographic position. Orogastric tube in good position, and ready for immediate use. Redemonstration of a left upper lobe infiltrate, now with mild to moderate pulmonary vascular congestion Chest CT 07/26/24 05:14 Impression: Moderate left pleural effusion is increased from prior exam. Minimal right pleural effusion. Extensive presumed atelectatic changes in the left lower lobe and left upper lobe/lingula with mild right basilar atelectasis. Correlate clinically for pulmonary edema or pneumonia. Stable irregular airspace consolidation left lung apex, suggestive of chronic scarring or postinflammatory change. Correlate for acute pneumonia. Venous Doppler Study 07/26/24 11:15 IMPRESSION: 1: No lower extremity deep venous thrombosis. Chest X-Ray 07/28/24 06:48 IMPRESSION: 1. No significant change in a small left pleural effusion and patchy bilateral airspace opacities which could represent atelectasis and/or pneumonia. Labs Labs: Laboratory Results - last 24 hr 07/27/24 07/27/24 07/27/24 12:01 17:02 20:03 WBC RBC Hgb Hct MCV MCH MCHC RDW Plt Count MPV Puncture Site ABG pH ABG pCO2 ABG pO2 ABG PO2/FiO2 Ratio ABG HCO3 ABG O2 Saturation ABG O2 Content ABG Base Excess A-a Gradient Oxyhemoglobin Carboxyhemoglobin Methemoglobin Reduced Hemoglobin Total Hemoglobin O2 Delivery Device O2 Liters/Min Minute Volume Vent Rate Vent Mode FiO2 Tidal Volume PEEP Peak Inspir Pressure Pressure Support Sodium Potassium Chloride Carbon Dioxide Anion Gap BUN Creatinine Estim Creat Clear Calc Estimated GFR Glucose POC Capillary Glucose 235 H 281 H 274 H Calcium Magnesium Total Bilirubin AST ALT Alkaline Phosphatase Total Protein Albumin 07/28/24 07/28/24 07/28/24 00:04 04:21 04:53 WBC RBC Hgb Hct MCV MCH MCHC RDW Plt Count MPV Puncture Site Right radial ABG pH 7.460 H ABG pCO2 37.4 ABG pO2 63.4 L ABG PO2/FiO2 Ratio 1.59 ABG HCO3 26.0 ABG O2 Saturation 93.4 L ABG O2 Content 14.3 L ABG Base Excess 2.2 A-a Gradient 178.8 Oxyhemoglobin 91.9 Carboxyhemoglobin 0.4 Methemoglobin 0.3 Reduced Hemoglobin 7.4 H Total Hemoglobin 11.0 L O2 Delivery Device Ventilator O2 Liters/Min Not Reportable Minute Volume Not Reportable Vent Rate 20 Vent Mode Cmv FiO2 40 Tidal Volume 400 PEEP 5 Peak Inspir Pressure Not Reportable Pressure Support Not Reportable Sodium Potassium Chloride Carbon Dioxide Anion Gap BUN Creatinine Estim Creat Clear Calc Estimated GFR Glucose POC Capillary Glucose 284 H 256 H Calcium Magnesium Total Bilirubin AST ALT Alkaline Phosphatase Total Protein Albumin 07/28/24 07/28/24 05:41 08:08 WBC 11.7 H RBC 3.22 L Hgb 10.3 L Hct 32.4 L MCV 100.6 H MCH 32.0 MCHC 31.8 L RDW 15.3 H Plt Count 190 MPV 10.8 H Puncture Site ABG pH ABG pCO2 ABG pO2 ABG PO2/FiO2 Ratio ABG HCO3 ABG O2 Saturation ABG O2 Content ABG Base Excess A-a Gradient Oxyhemoglobin Carboxyhemoglobin Methemoglobin Reduced Hemoglobin Total Hemoglobin O2 Delivery Device O2 Liters/Min Minute Volume Vent Rate Vent Mode FiO2 Tidal Volume PEEP Peak Inspir Pressure Pressure Support Sodium 138 Potassium 4.0 Chloride 105 Carbon Dioxide 29 Anion Gap 4 BUN 26 H Creatinine 0.79 Estim Creat Clear Calc 54 Estimated GFR > 60 Glucose 246 H POC Capillary Glucose 209 H Calcium 8.8 Magnesium 2.1 Total Bilirubin 0.3 AST 23 ALT 18 Alkaline Phosphatase 75 Total Protein 6.0 L Albumin 3.0 L Quality VTE Prophylaxis VTE prophylaxis: pharmacologic ordered
[2024-07-28] MEDS: methylPREDNISolone SOD SUCC 40 MG VIAL IV PUSH (08:25)
[2024-07-28] MEDS: PANTOPRAZOLE SODIUM IV 40 MG VIAL IV PUSH (08:25)
[2024-07-28] MEDS: ENOXAPARIN 80 MG/0.8 ML SYRINGE SUB-Q ×2 (08:25→20:33)
[2024-07-28] MEDS: SOTALOL HCL 80 MG TABLET FEED TUBE ×2 (08:25→20:33)
[2024-07-28] MEDS: MINERAL OIL/WHITE PETROLATUM OINTMENT 1 APPLIC EACH EYE ×2 (08:27→20:40)
[2024-07-28] MEDS: INSULIN GLARGINE (*BKC) 100 UNITS/ML 30 UNITS SUB-Q (08:27)
[2024-07-28 10:38] LABS: Triglycerides 106 mg/dL (<150)
[2024-07-28 11:57] LABS: Glucose Point of Care 216 mg/dl (65-105)
--- NOTE | 2024-07-28 16:23 | PM.IMPN ---
Progress Note: A&P Assessment and Plan (1) Type 2 diabetes mellitus with hypoglycemia and coma, with long-term current use of insulin: Code(s): E11.641 - Type 2 diabetes mellitus with hypoglycemia with coma; Z79.4 - ferry terminal agent (current) use of insulin Status: Acute (2) Acute respiratory failure with hypoxia: Code(s): J96.01 - Acute respiratory failure with hypoxia Status: Acute (3) Acute UTI: Code(s): N39.0 - Urinary tract infection, site not specified Status: Acute (4) Altered mental status: Qualifiers: Altered mental status type: coma Coma depth: Garry coma 3-8 Coma timing: at hospital admission Qualified Code(s): R40.2433 - [place] coma scale score 3-8, at hospital admission Code(s): R41.82 - Altered mental status, unspecified Status: Acute (5) Pleural effusion: Code(s): J90 - Pleural effusion, not elsewhere classified Status: Acute Plan Severe hypoglycemia due to insulin use and likely associated decreased oral intake. Patient had profound persistent hypoglycemia despite glucose administration in had recurrence of hypoglycemia. Subsequently D5 W was started at 75 mL an hour. Will continue to check hourly Accu-Cheks until stabilized. The patient does have a classical coma Scale of 6 likely resultant encephalopathy from suspected hypoglycemic seizure given injury to the patient's tongue. There is likely some postictal state and some residual encephalopathy from hypoglycemia. CT of the head did not demonstrated any acute intercranial process. The patient has become a little bit more responsive and subsequently has required some sedation with fentanyl and Versed. The patient did have associated acute hypoxic respiratory failure due to the above factors requiring intubation. Initial ventilator settings were AC/CMV tidal volume 340 rate of 18 peep of 5 repeat ABG did demonstrate mild respiratory acidosis with hypercapnia. Subsequently tidal volume was increased to 360. Daily chest x-ray has been ordered. When the patient's history of COPD and in the setting of acquired intubation will place patient on scheduled nebulizer treatment. Patient has UA suggestive of UTI and had a low-grade fever with associated tachypnea and leukocytosis patient does fit sepsis criteria without evidence of septic shock. Patient was started on broad-spectrum antibiotics with meropenem. Blood cultures and urine cultures have been obtained. Patient's CT of the chest also demonstrated findings with possible underlying pneumonia given development of hypoxic respiratory failure and suspected seizure pneumonia/aspiration pneumonitis cannot be ruled out. Will broaden antibiotic coverage with azithromycin and vancomycin. Will obtain sputum culture. Will repeat CBC and electrolyte panel. Patient does have pleural effusion moderate in nature likely associated with pneumonia. CHF less likely given the patient had echocardiogram with normal systolic function and normal diastolic function in April of this year. She did have some mild pulmonary hypertension. Given the patient's underlying history of COPD in the setting of underlying pneumonia. patient remains on ventilator, seen by buff wheel fabricator and neurologist suspect metabolic encephalopathy 2/2 hypoglycemia resulting in seizure and unresponsiveness, patient was given IVF and glucose, and her blood sugars now trending up and close to normal, patient also has sepsis 2/2 UTI and aspiration pneumonia being treated with meropenem, patient now has Atrial fibrillation most likely triggered by hypoglycemia, aspiration pneumonia and uti, patient is on diltiazem drip and seen by bee breeder. today patient is slightly responsive to verbal commands and opens here eyes, but remains unresponsive. Subjective Date/time seen: 07/28/24 16:23 Interval history: Unresponsive H&P-Narrative: 74-year-old female with a past medical history insulin-dependent diabetes mellitus, essential hypertension, paroxysmal atrial fibrillation, hyperlipidemia chronic inhaled nicotine use, COPD with history of prior respiratory failure, pulmonary hypertension and chronic anemia among other chronic comorbidities who presented to the ER after being found unresponsive at home. The patient's daughter reports that see you last solid patient while before 16:30 on the 6. Daughter reported that she left to go to a ball game when she came home her mother was asleep. Daughter than got up and went to work the next day and when she came home from work around 630 p.m. she found the patient unresponsive and called EMS. EMS reported that the patient's initial blood sugar on arrival to the scene was 23 with a repeat reading of 36. Patient was given 1 dose of glucose on with no improvement in glucose in the patient was brought into the ER for evaluation. Patient was maintaining O2 sats on room air with the sats in the low 90s. The patient was unarousable and snoring in triage in repeat glucose at that time was 11. Patient had a right femoral central line placed AMS could not obtain IV access and patient received an amp of D50 with repeat glucose on BMP of 286. However patient did trend back down within 3 hours down to 49. Patient did spike a fever after arrival to the ER and UA was suggestive of UTI. The patient remained obtunded despite improved blood sugars and she had evidence of bruising to the tongue suggesting recent seizure. The patient was subsequently intubated for airway protection. Patient also was having hypoxia on 15 L non-rebreather with sats down to 79% ABG 1 hour after intubation with an settings AC/CMP tidal volume of 340 peep of 5 rate of 18 and 50% FiO2 demonstrated pH of 7.37 pCO2 of 41.9 and PO2 of 72. Patient's urine was suggestive of UTI patient was started on meropenem. Blood cultures were obtained and are pending. CT of the head demonstrated no acute intercranial process. patient remains on ventilator, seen by buff wheel fabricator and neurologist suspect metabolic encephalopathy 2/2 hypoglycemia resulting in seizure and unresponsiveness, patient was given IVF and glucose, and her blood sugars now trending up and close to normal, patient also has sepsis 2/2 UTI and aspiration pneumonia being treated with meropenem, patient now has Atrial fibrillation most likely triggered by hypoglycemia, aspiration pneumonia and uti, patient is on diltiazem drip and seen by bee breeder. today patient is slightly responsive to verbal commands and opens here eyes, but remains unresponsive. Review of Systems Review of Systems: ROS unobtainable: Yes unobtainable due to endotracheal tube Exam Narrative: Patient is comfortable, NAD HEENT: ET tube in place LUNGS:CTA HEART: RR S1S2 ABD: BS+, Soft and nontender Lower extremities: no edema SKIN: nonjaundiced Neuro: On vent and sedated Objective Data Vital Signs Vital Signs: Vital Signs - 24 hr 07/27/24 17:06 07/27/24 18:00 07/27/24 18:00 Temperature 37.3 C Pulse Rate 79 73 76 Respiratory Rate 24 H Blood Pressure 171/60 H Pulse Oximetry 96 93 Oxygen Delivery Mechanical Ventilation Fraction of Inspired Oxygen 40 07/27/24 18:24 07/27/24 19:30 07/27/24 20:00 Temperature Pulse Rate 77 75 Respiratory Rate 29 H 30 H Blood Pressure Pulse Oximetry 96 Oxygen Delivery Mechanical Ventilation Fraction of Inspired Oxygen 40 07/27/24 20:00 07/27/24 20:00 07/27/24 20:00 Temperature 37.4 C Pulse Rate 58 L 58 L Respiratory Rate 20 Blood Pressure 142/48 H Pulse Oximetry 96 Oxygen Delivery Fraction of Inspired Oxygen 40 07/27/24 20:04 07/27/24 20:05 07/27/24 20:15 Temperature Pulse Rate 60 59 L 69 Respiratory Rate 20 Blood Pressure Pulse Oximetry 100 Oxygen Delivery Mechanical Ventilation Fraction of Inspired Oxygen 40 07/27/24 22:00 07/27/24 22:00 07/27/24 22:00 Temperature 37.2 C Pulse Rate 56 L 56 L 56 L Respiratory Rate 20 20 Blood Pressure 121/51 L Pulse Oximetry 96 Oxygen Delivery Fraction of Inspired Oxygen 07/27/24 23:12 07/28/24 00:00 07/28/24 00:00 Temperature Pulse Rate 68 Respiratory Rate Blood Pressure Pulse Oximetry 100 99 Oxygen Delivery Mechanical Ventilation Mechanical Ventilation Fraction of Inspired Oxygen 40 40 40 07/28/24 00:00 07/28/24 00:00 07/28/24 00:05 Temperature 37.2 C Pulse Rate 61 61 62 Respiratory Rate 20 21 H Blood Pressure 159/55 H Pulse Oximetry 99 Oxygen Delivery Fraction of Inspired Oxygen 07/28/24 02:00 07/28/24 02:00 07/28/24 02:00 Temperature 37.3 C Pulse Rate 65 62 65 Respiratory Rate 22 H 22 H Blood Pressure 148/56 H Pulse Oximetry 99 Oxygen Delivery Fraction of Inspired Oxygen 07/28/24 02:08 07/28/24 04:00 07/28/24 04:00 Temperature Pulse Rate 69 57 L 57 L Respiratory Rate 20 Blood Pressure Pulse Oximetry 98 Oxygen Delivery Mechanical Ventilation Fraction of Inspired Oxygen 40 07/28/24 04:00 07/28/24 04:00 07/28/24 04:00 Temperature 37.4 C Pulse Rate 57 L Respiratory Rate 20 Blood Pressure 135/48 L Pulse Oximetry 97 97 Oxygen Delivery Mechanical Ventilation Fraction of Inspired Oxygen 40 40 07/28/24 05:02 07/28/24 05:15 07/28/24 05:37 Temperature Pulse Rate 57 L 60 57 L Respiratory Rate 21 H 21 H Blood Pressure Pulse Oximetry 100 Oxygen Delivery Mechanical Ventilation Fraction of Inspired Oxygen 40 07/28/24 06:00 07/28/24 06:00 07/28/24 06:03 Temperature 37.2 C Pulse Rate 65 65 65 Respiratory Rate 21 H 21 H Blood Pressure 155/50 H Pulse Oximetry 99 Oxygen Delivery Fraction of Inspired Oxygen 07/28/24 06:49 07/28/24 07:00 07/28/24 07:30 Temperature Pulse Rate 53 L 49 L 69 Respiratory Rate 20 20 16 Blood Pressure Pulse Oximetry Oxygen Delivery Fraction of Inspired Oxygen 07/28/24 08:00 07/28/24 08:00 07/28/24 08:00 Temperature 37.1 C Pulse Rate 76 57 L Respiratory Rate 23 H 20 Blood Pressure 157/57 H Pulse Oximetry 97 Oxygen Delivery Fraction of Inspired Oxygen 40 07/28/24 08:00 07/28/24 08:00 07/28/24 08:05 Temperature Pulse Rate 64 71 Respiratory Rate Blood Pressure Pulse Oximetry 96 97 Oxygen Delivery Mechanical Ventilation Mechanical Ventilation Fraction of Inspired Oxygen 40 40 07/28/24 08:25 07/28/24 10:00 07/28/24 10:00 Temperature 37.6 C H Pulse Rate 59 L 63 60 Respiratory Rate 20 20 Blood Pressure 155/54 H Pulse Oximetry 96 Oxygen Delivery Fraction of Inspired Oxygen 07/28/24 10:00 07/28/24 10:51 07/28/24 12:00 Temperature Pulse Rate 63 64 Respiratory Rate Blood Pressure Pulse Oximetry 96 Oxygen Delivery Mechanical Ventilation Fraction of Inspired Oxygen 40 40 07/28/24 12:00 07/28/24 12:00 07/28/24 12:00 Temperature 37.8 C H Pulse Rate 58 L 54 L Respiratory Rate 20 Blood Pressure 153/53 H Pulse Oximetry 97 97 Oxygen Delivery Mechanical Ventilation Fraction of Inspired Oxygen 40 07/28/24 12:00 07/28/24 12:52 07/28/24 13:35 Temperature Pulse Rate 70 53 L Respiratory Rate 20 Blood Pressure Pulse Oximetry 96 Oxygen Delivery Mechanical Ventilation Fraction of Inspired Oxygen 40 40 07/28/24 14:00 07/28/24 14:00 07/28/24 14:00 Temperature 37.8 C H Pulse Rate 67 67 58 L Respiratory Rate 20 20 Blood Pressure 153/51 H Pulse Oximetry 95 Oxygen Delivery Fraction of Inspired Oxygen Intake/Output Intake/Output: Intake & Output 07/25/24 07/26/24 07/27/24 07/28/24 23:59 23:59 23:59 23:59 Intake Total 0.4 1575.0 1643.9 690.6 Output Total 1660 1700 775 Balance 0.4 -85.0 -56.1 -84.4 Meds/Results Medications: Active Medications Generic Name Dose Route Start Last Admin Trade Name Freq PRN Reason Stop Dose Admin Acetaminophen 650 mg 07/28/24 12:52 Acetaminophen Elixir 325 Mg/10.15 Ml Udc PO Q4H PRN Mild Pain (1-3) or Fever Albuterol 5 mg 07/26/24 10:06 Albuterol Sulfate Neb 2.5 Mg/3 Ml Inh INHALATION Q6HRT PRN Wheezing Dextrose 12.5 gm 07/27/24 07:28 Dextrose 50% 25 Gm/50 Ml Syringe IV PUSH PRN PRN Hypoglycemia Protocol Enoxaparin Sodium 80 mg 07/28/24 09:00 07/28/24 08:25 Enoxaparin 80 Mg/0.8 Ml Syringe SUB-Q 80 mg Q12HR TYREL Administration Glucagon 1 mg 07/27/24 07:28 Glucagon For Inj 1 Mg Vial IM PRN PRN Hypoglycemia Protocol Glucose 15 gm 07/27/24 07:28 Glucose Oral Gel 15 Gm Of Glucse In 37.5 Gm Tube PO PRN PRN Hypoglycemia Protocol Meropenem 1 gm in 100 mls @ 200 mls/hr 07/26/24 06:00 07/28/24 13:59 IVPB 200 mls/hr Q8HR TYREL Administration Propofol 100 mls @ 0 mls/hr 07/26/24 11:15 07/28/24 14:00 Diprivan IV CONT 0 mcg/kg/min .Q0M TYREL 0 mls/hr Titration Protocol 0 MCG/KG/MIN Dextrose 1,000 mls @ 100 mls/hr 07/27/24 07:28 Dextrose 5% 1,000 Ml IVPB PRN PRN Hypoglycemia Protocol Insulin Aspart 4 - 8 units 07/27/24 07:30 07/28/24 12:01 Insulin Aspart (*Bkc) 100 Units/Ml SUB-Q 4 units Q4H TYREL Administration Protocol Insulin Glargine 30 units 07/28/24 09:00 07/28/24 08:27 Insulin Glargine (*Bkc) 100 Units/Ml SUB-Q 30 units QAM TYREL Administration Ipratropium [place] 0.5 mg 07/26/24 10:06 Ipratropium Br 0.02% Inh Soln 0.5 Mg/2.5 Ml Vial INHALATION Q6HRT PRN Wheezing Methylprednisolone Sodium Succinate 40 mg 07/28/24 09:00 07/28/24 08:25 Methylprednisolone Sod Succ 40 Mg Vial IV PUSH 40 mg QAM TYREL Administration Metoprolol Tartrate 5 mg 07/27/24 09:55 Metoprolol Tartrate Inj 5 Mg/5 Ml Vial IV PUSH Q4H PRN Tachycardia Multi-Ingred Cream/Lotion/Oil/Oint 1 applic 07/26/24 21:00 07/28/24 08:27 Mineral Oil/White Petrolatum Ointment EACH EYE 1 applic Q12HR TYREL Administration Pantoprazole Sodium 40 mg 07/26/24 09:00 07/28/24 08:25 Pantoprazole Sodium Iv 40 Mg Vial IV PUSH 40 mg DAILY TYREL Administration Perflutren Lipid Microsphere 0 ml 07/27/24 09:56 Perflutren Lipid Microspheres 1.5 Ml Vial Diluted To 10 Ml Total Volume IV PUSH 07/30/24 09:56 ONCE PRN adequate visualization Protocol Sodium Chloride 10 ml 07/26/24 22:00 07/28/24 14:00 Central Line Flush IV PUSH 10 ml Q8HR TYREL Administration Sodium Chloride 20 ml 07/26/24 20:30 07/27/24 05:28 Central Line Flush IV PUSH 20 ml PRN PRN Administration after blood draws Sotalol HCl 80 mg 07/26/24 09:00 07/28/24 08:25 Sotalol Hcl 80 Mg Tablet FEED TUBE 80 mg Q12HR TYREL Administration Radiology Results: ITS Impressions Head CT 07/25/24 21:08 Impression: No large acute intracranial hemorrhage or suspicious mass effect. Abdomen X-Ray 07/25/24 22:47 IMPRESSION: Endotracheal tube in good radiographic position. Orogastric tube in good position, and ready for immediate use. Redemonstration of a left upper lobe infiltrate, now with mild to moderate pulmonary vascular congestion Chest CT 07/26/24 05:14 Impression: Moderate left pleural effusion is increased from prior exam. Minimal right pleural effusion. Extensive presumed atelectatic changes in the left lower lobe and left upper lobe/lingula with mild right basilar atelectasis. Correlate clinically for pulmonary edema or pneumonia. Stable irregular airspace consolidation left lung apex, suggestive of chronic scarring or postinflammatory change. Correlate for acute pneumonia. Venous Doppler Study 07/26/24 11:15 IMPRESSION: 1: No lower extremity deep venous thrombosis. Chest X-Ray 07/28/24 06:48 IMPRESSION: 1. No significant change in a small left pleural effusion and patchy bilateral airspace opacities which could represent atelectasis and/or pneumonia. Labs Labs: Laboratory Results - last 24 hr 07/27/24 07/27/24 07/28/24 17:02 20:03 00:04 WBC RBC Hgb Hct MCV MCH MCHC RDW Plt Count MPV Puncture Site ABG pH ABG pCO2 ABG pO2 ABG PO2/FiO2 Ratio ABG HCO3 ABG O2 Saturation ABG O2 Content ABG Base Excess A-a Gradient Oxyhemoglobin Carboxyhemoglobin Methemoglobin Reduced Hemoglobin Total Hemoglobin O2 Delivery Device O2 Liters/Min Minute Volume Vent Rate Vent Mode FiO2 Tidal Volume PEEP Peak Inspir Pressure Pressure Support Sodium Potassium Chloride Carbon Dioxide Anion Gap BUN Creatinine Estim Creat Clear Calc Estimated GFR Glucose POC Capillary Glucose 281 H 274 H 284 H Calcium Magnesium Total Bilirubin AST ALT Alkaline Phosphatase Total Protein Albumin Triglycerides 07/28/24 07/28/24 07/28/24 04:21 04:53 05:41 WBC 11.7 H RBC 3.22 L Hgb 10.3 L Hct 32.4 L MCV 100.6 H MCH 32.0 MCHC 31.8 L RDW 15.3 H Plt Count 190 MPV 10.8 H Puncture Site Right radial ABG pH 7.460 H ABG pCO2 37.4 ABG pO2 63.4 L ABG PO2/FiO2 Ratio 1.59 ABG HCO3 26.0 ABG O2 Saturation 93.4 L ABG O2 Content 14.3 L ABG Base Excess 2.2 A-a Gradient 178.8 Oxyhemoglobin 91.9 Carboxyhemoglobin 0.4 Methemoglobin 0.3 Reduced Hemoglobin 7.4 H Total Hemoglobin 11.0 L O2 Delivery Device Ventilator O2 Liters/Min Not Reportable Minute Volume Not Reportable Vent Rate 20 Vent Mode Cmv FiO2 40 Tidal Volume 400 PEEP 5 Peak Inspir Pressure Not Reportable Pressure Support Not Reportable Sodium 138 Potassium 4.0 Chloride 105 Carbon Dioxide 29 Anion Gap 4 BUN 26 H Creatinine 0.79 Estim Creat Clear Calc 54 Estimated GFR > 60 Glucose 246 H POC Capillary Glucose 256 H Calcium 8.8 Magnesium 2.1 Total Bilirubin 0.3 AST 23 ALT 18 Alkaline Phosphatase 75 Total Protein 6.0 L Albumin 3.0 L Triglycerides 106 07/28/24 07/28/24 08:08 11:55 WBC RBC Hgb Hct MCV MCH MCHC RDW Plt Count MPV Puncture Site ABG pH ABG pCO2 ABG pO2 ABG PO2/FiO2 Ratio ABG HCO3 ABG O2 Saturation ABG O2 Content ABG Base Excess A-a Gradient Oxyhemoglobin Carboxyhemoglobin Methemoglobin Reduced Hemoglobin Total Hemoglobin O2 Delivery Device O2 Liters/Min Minute Volume Vent Rate Vent Mode FiO2 Tidal Volume PEEP Peak Inspir Pressure Pressure Support Sodium Potassium Chloride Carbon Dioxide Anion Gap BUN Creatinine Estim Creat Clear Calc Estimated GFR Glucose POC Capillary Glucose 209 H 216 H Calcium Magnesium Total Bilirubin AST ALT Alkaline Phosphatase Total Protein Albumin Triglycerides Quality VTE Prophylaxis VTE prophylaxis: pharmacologic ordered
[2024-07-28 17:11] LABS: Glucose Point of Care 272 mg/dl (65-105)
[2024-07-28] MEDS: PROPOFOL IV EMULSION 100 ML 2.3 MG IV CONT (17:24)
[2024-07-28 21:19] LABS: Glucose Point of Care 260 mg/dl (65-105)
[2024-07-29] VITALS (24 sets, daily range): BP systolic 99–162; BP diastolic 42–59; PULSE 19–68; RESP 17–23; TEMP 37.1–37.6; O2SAT 88–100
[2024-07-29 00:09] LABS: Glucose Point of Care 244 mg/dl (65-105)
[2024-07-29 04:26] LABS: Glucose Point of Care 208 mg/dl (65-105)
[2024-07-29] MEDS: CENTRAL LINE FLUSH 20 ML IV PUSH (04:34)
[2024-07-29] MEDS: CENTRAL LINE FLUSH 10 ML IV PUSH ×3 (04:34→21:20)
[2024-07-29] MEDS: INSULIN ASPART (*BKC) 100 UNITS/ML SUB-Q ×4 (04:34→20:07)
[2024-07-29 05:04] LABS: Alveolar/Arterial O2 Gradient 176.1 mmHg; Fractional Inspired Oxygen 40 %; HCO3 ABG 25.3 mEq/l (22.0-26.0); Methemoglobin ABG 0.3 %THb (0-1.5); Oxygen Content ABG 14.1 %vol (16.0-22.0); Oxygen Saturation ABG 96.4 % (95.0-100.0); Oxyhemoglobin 95.1 % THb (90.0-100.0); PCO2 ABG 30.8 mmHg (35.0-45.0); PO2 ABG 73.7 mmHg (80.0-100.0); PO2 FiO2 Ratio Arterial Blood 1.84 %; Reduced Hemoglobin 4.6 %THb (0-5.0); Total Hemoglobin 10.5 g/dL (12.0-18.0)
[2024-07-29 05:05] LABS: Hematocrit 30.6 % (37.0-47.0); Hemoglobin 9.6 g/dL (12.0-15.0); Mean Corpuscular HGB Conc 31.4 g/dl (32-36); Mean Corpuscular Hemoglobin 31.3 pg (26-34); Mean Corpuscular Volume 99.7 fl (80-100); Mean Platelet Volume 12.3 fl (7.4-10.4); Platelet Count Result 130 k/mm3 (150-375); Red Blood Count 3.07 M/mm3 (4.2-5.4); Red Cell Distribution Width 15.1 % (11.5-14.5); White Blood Count 8.1 K/mm3 (4.5-10.0)
[2024-07-29 05:06] LABS: Arterial Blood Gas PEEP 8 cmH2O; Arterial Blood Gas Vent Mode CMV; Arterial Blood Gas Ventilator rate 20 /MIN; Device VENTILATOR; Modified Allen's Test Pass; Site Drawn RIGHT RADIAL; pH ABG 7.532 (7.350-7.450)
[2024-07-29 05:07] LABS: Arterial Blood Gas Tidal Volume 380 ml
[2024-07-29 05:20] LABS: Alanine Aminotransferase 20 U/L (6-35); Albumin Level 2.7 g/dL (3.5-5.1); Alkaline Phosphatase 74 U/L (38-126); Anion Gap 4 mmol/L (4-12); Aspartate Amino Transferase 26 U/L (14-36); Bilirubin,Total 0.2 mg/dL (0.2-1.3); Blood Urea Nitrogen 33 mg/dL (7-17); Calcium 8.6 mg/dL (8.4-10.2); Carbon Dioxide 28 mmol/L (22-30); Chloride 104 mmol/L (98-107); Estimated CRCL calculation 57 ml/min; Estimated Glomerular Filt Rate > 60; Glucose 237 mg/dL (65-110); Potassium 3.7 mmol/L (3.4-5.0); Sodium 136 mmol/L (137-145)
[2024-07-29] MEDS: MEROPENEM 1 GM/NS 100 ML 1 GM/100 ML BAG IVPB ×3 (06:09→21:20)
[2024-07-29 07:55] LABS: Glucose Point of Care 188 mg/dl (65-105)
--- NOTE | 2024-07-29 08:24 | P.PNINT_ITS ---
Progress Note: A&P Assessment and Plan (1) Acute respiratory failure with hypoxia: Code(s): J96.01 - Acute respiratory failure with hypoxia Status: Acute Assessment and Plan: Acute respiratory failure secondary to altered mental status, aspiration pneumonia with underlying COPD CT scan chest x-ray ABG on vent settings reviewed Continue FiO2 at 40%, change tidal volume to 350, rate 18 and change PEEP to 8 Continue Bronchodilator and Steroids Management of pneumonia as below Decrease steroid dose Lasix IV x1 (2) Altered mental status: Qualifiers: Altered mental status type: coma Coma depth: Garry coma 3-8 Coma timing: at hospital admission Qualified Code(s): R40.2433 - [place] coma scale score 3-8, at hospital admission Code(s): R41.82 - Altered mental status, unspecified Status: Acute Assessment and Plan: Patient presented with unresponsiveness and hypoglycemia. Patient was down for a prolonged period of time This could be secondary to hypoglycemia or she may have had seizure and was postictal. Currently sedated Head CT was negative 06/27 Versed and fentanyl. Was switched to propofol EEG pending Neurology consult Normal ammonia and TSH Unable to obtain MRI on a vented patient at [facility] Will perform sedation holiday and assess neuro status (3) Sepsis: Code(s): A41.9 - Sepsis, unspecified organism Status: Acute Assessment and Plan: Sepsis secondary to UTI and pneumonia which is likely aspiration UA suggestive of UTI Chest CT reviewed Blood sputum and urine culture ordered and pending Continue meropenem. Will discontinue vancomycin as MRSA screen is negative (4) Atrial fibrillation with rapid ventricular response: Code(s): I48.91 - Unspecified atrial fibrillation Status: Acute Assessment and Plan: Patient has history of AFib and is on sotalol as an outpatient When patient came in she was in sinus rhythm but after admission she has gone into AFib with RVR After discussion with Cardiology. Patient was started on diltiazem infusion for rate control and continue sotalol this time. If patient does not tolerate diltiazem she may need amiodarone infusion while monitoring a QTC. Most recent QTC on EKG was 442 Continue Lovenox 07/27 patient converted to sinus rhythm and diltiazem infusion was discontinued. Switch apixaban to Lovenox in case patient needs invasive procedures (5) Insulin dependent type 2 diabetes mellitus: Code(s): E11.9 - Type 2 diabetes mellitus without complications; Z79.4 - FPC (current) use of insulin Status: Acute Assessment and Plan: Hypoglycemia has resolved. Patient is now on SSI and Lantus Increase Lantus to 35 Decrease steroid (6) Hypoglycemia: Code(s): E16.2 - Hypoglycemia, unspecified Status: Acute Assessment and Plan: Patient presented with hypoglycemia and was treated with D50 push and now is on D10 water Hypoglycemia has now resolved and patient is off of IV fluids with dextrose. Management of diabetes as above (7) Acute UTI: Code(s): N39.0 - Urinary tract infection, site not specified Status: Acute Assessment and Plan: See above (8) Pneumonia: Code(s): J18.9 - Pneumonia, unspecified organism Status: Acute Assessment and Plan: See above (9) Chronic obstructive pulmonary disease: Code(s): J44.9 - Chronic obstructive pulmonary disease, unspecified Status: Acute Assessment and Plan: See above (10) Swelling of lower extremity: Code(s): M79.89 - Other specified soft tissue disorders Status: Acute Assessment and Plan: Bilateral pitting edema Bilateral lower extremity Dopplers negative for DVT Patient likely has right heart failure from her COPD Plan DVT prophylaxis - Lovenox Stress ulcer prophylaxis -Protonix Nutrition -continue Tube Feeds Code Status - Full Code I spoke to patient's daughter Mary Beth by phone and updated her with patient's status. I answered all questions. Total Critical Care Time - 30 minutes Due to a high probability of clinically significant, life threatening deterioration, the patient required my highest level of preparedness to intervene emergently and I personally spent this critical care time directly and personally managing the patient. This critical care time included obtaining a history; examining the patient; pulse oximetry; ordering and review of studies; arranging urgent treatment with development of a management plan; evaluation of patient's response to treatment; frequent reassessment; and discussions with other providers. It was exclusive of separately billable procedures and treating other patients and teaching time. Please see Assessment and Plan section and the rest of the note for further information on patient assessment and treatment Subjective Date/time seen: 07/29/24 Overnight events reviewed. Afebrile Continues to be on mechanical ventilation 40% FiO2 tolerating tube feeds Continues to be sedated withPropofol acceptable urine output. Other Vitals acceptable Review of Systems Review of Systems: ROS unobtainable: Yes unobtainable due to endotracheal tube, unobtainable due to medical condition and unobtainable due to mental status Exam Narrative: General: Pt is sedated, intubated and on mechanical ventilation Lungs/Chest: Trachea central Coarse BS B/L, no wheezing Cardiac: A regular rate and rhythm. Normal S1 S2. No murmurs Circulation: Pedal pulses are intact and symmetrical. Abdomen: Decreased bowel sounds.. Soft. NT. ND. Extremities: Bilateral pitting edema present right more than left : [place] in place Neurologic: Unable to fully assess due to patient being on propofol in few. On holding propofol infusion patient withdraws to pain in all 4 extremities but no purposeful movement as this time. She does open her eyes on stimulation but does not follow any command.PERRL Objective Data Vital Signs Vital Signs: Vital Signs - 24 hr 07/28/24 08:25 07/28/24 10:00 07/28/24 10:00 Temperature 37.6 C H Pulse Rate 59 L 63 60 Respiratory Rate 20 20 Blood Pressure 155/54 H Pulse Oximetry 96 Oxygen Delivery Fraction of Inspired Oxygen 07/28/24 10:00 07/28/24 10:51 07/28/24 12:00 Temperature Pulse Rate 63 64 Respiratory Rate Blood Pressure Pulse Oximetry 96 Oxygen Delivery Mechanical Ventilation Fraction of Inspired Oxygen 40 40 07/28/24 12:00 07/28/24 12:00 07/28/24 12:00 Temperature 37.8 C H Pulse Rate 58 L 54 L Respiratory Rate 20 Blood Pressure 153/53 H Pulse Oximetry 97 97 Oxygen Delivery Mechanical Ventilation Fraction of Inspired Oxygen 40 07/28/24 12:00 07/28/24 12:52 07/28/24 13:35 Temperature Pulse Rate 70 53 L Respiratory Rate 20 Blood Pressure Pulse Oximetry 96 Oxygen Delivery Mechanical Ventilation Fraction of Inspired Oxygen 40 40 07/28/24 14:00 07/28/24 14:00 07/28/24 14:00 Temperature 37.8 C H Pulse Rate 67 67 58 L Respiratory Rate 20 20 Blood Pressure 153/51 H Pulse Oximetry 95 Oxygen Delivery Fraction of Inspired Oxygen 07/28/24 16:00 07/28/24 16:00 07/28/24 16:00 Temperature Pulse Rate 57 L 66 Respiratory Rate 20 Blood Pressure Pulse Oximetry Oxygen Delivery Fraction of Inspired Oxygen 40 07/28/24 16:00 07/28/24 16:00 07/28/24 16:41 Temperature 37.6 C Pulse Rate 51 L 56 L 55 L Respiratory Rate 20 20 Blood Pressure 159/56 H Pulse Oximetry 93 93 95 Oxygen Delivery Mechanical Ventilation Mechanical Ventilation Fraction of Inspired Oxygen 40 40 07/28/24 17:20 07/28/24 17:24 07/28/24 18:00 Temperature Pulse Rate 56 L 73 55 L Respiratory Rate 20 22 H Blood Pressure Pulse Oximetry Oxygen Delivery Fraction of Inspired Oxygen 07/28/24 18:00 07/28/24 18:09 07/28/24 19:00 Temperature 37.6 C 37.4 C Pulse Rate 55 L 55 L 53 L Respiratory Rate 20 20 Blood Pressure 153/53 H Pulse Oximetry 93 94 Oxygen Delivery Fraction of Inspired Oxygen 07/28/24 19:01 07/28/24 19:09 07/28/24 19:15 Temperature 37.5 C 37.4 C Pulse Rate 57 L 61 53 L Respiratory Rate 21 H 20 Blood Pressure 155/56 H Pulse Oximetry 94 94 Oxygen Delivery Fraction of Inspired Oxygen 07/28/24 19:30 07/28/24 19:31 07/28/24 19:45 Temperature 37.4 C 37.4 C 37.4 C Pulse Rate 52 L 51 L 55 L Respiratory Rate 20 Blood Pressure 151/53 H Pulse Oximetry 93 93 94 Oxygen Delivery Fraction of Inspired Oxygen 07/28/24 20:00 07/28/24 20:00 07/28/24 20:00 Temperature Pulse Rate 55 L 55 L Respiratory Rate 20 20 Blood Pressure Pulse Oximetry 93 Oxygen Delivery Mechanical Ventilation Fraction of Inspired Oxygen 40 40 07/28/24 20:00 07/28/24 20:01 07/28/24 20:15 Temperature 37.3 C 37.3 C Pulse Rate 56 L 56 L 51 L Respiratory Rate 20 Blood Pressure 155/61 H Pulse Oximetry 93 92 Oxygen Delivery Fraction of Inspired Oxygen 07/28/24 20:30 07/28/24 20:31 07/28/24 20:33 Temperature 37.3 C 37.3 C Pulse Rate 53 L 52 L 53 L Respiratory Rate 20 Blood Pressure 155/57 H Pulse Oximetry 94 96 Oxygen Delivery Fraction of Inspired Oxygen 07/28/24 20:45 07/28/24 21:00 07/28/24 21:01 Temperature 37.3 C 37.3 C 37.3 C Pulse Rate 57 L 56 L 48 L Respiratory Rate Blood Pressure 140/69 Pulse Oximetry 93 100 98 Oxygen Delivery Fraction of Inspired Oxygen 07/28/24 21:15 07/28/24 21:30 07/28/24 21:39 Temperature 37.0 C 37.3 C Pulse Rate 51 L 50 L 46 L Respiratory Rate 20 Blood Pressure Pulse Oximetry 96 97 95 Oxygen Delivery Mechanical Ventilation Fraction of Inspired Oxygen 40 07/28/24 22:00 07/28/24 22:00 07/28/24 22:00 Temperature 37.2 C Pulse Rate 49 L 49 L 49 L Respiratory Rate 20 Blood Pressure 148/45 H Pulse Oximetry 95 Oxygen Delivery Fraction of Inspired Oxygen 07/29/24 00:00 07/29/24 00:00 07/29/24 00:00 Temperature Pulse Rate 56 L 57 L Respiratory Rate 20 Blood Pressure Pulse Oximetry 100 Oxygen Delivery Mechanical Ventilation Fraction of Inspired Oxygen 40 40 07/29/24 00:00 07/29/24 00:00 07/29/24 00:44 Temperature 37.2 C Pulse Rate 56 L 56 L 49 L Respiratory Rate 20 20 Blood Pressure 155/46 H Pulse Oximetry 100 98 Oxygen Delivery Mechanical Ventilation Fraction of Inspired Oxygen 40 07/29/24 02:00 07/29/24 02:00 07/29/24 02:00 Temperature 37.4 C Pulse Rate 48 L 48 L 48 L Respiratory Rate 20 20 Blood Pressure 128/52 L Pulse Oximetry 98 Oxygen Delivery Fraction of Inspired Oxygen 07/29/24 02:20 07/29/24 04:00 07/29/24 04:00 Temperature Pulse Rate 50 L 46 L 46 L Respiratory Rate 20 Blood Pressure Pulse Oximetry 97 Oxygen Delivery Mechanical Ventilation Fraction of Inspired Oxygen 40 07/29/24 04:00 07/29/24 04:00 07/29/24 04:00 Temperature 37.2 C Pulse Rate 46 L 46 L Respiratory Rate 20 20 Blood Pressure 138/49 L Pulse Oximetry 97 97 Oxygen Delivery Mechanical Ventilation Fraction of Inspired Oxygen 40 40 07/29/24 05:08 07/29/24 06:00 07/29/24 06:00 Temperature Pulse Rate 50 L 49 L 49 L Respiratory Rate 20 Blood Pressure 150/44 H Pulse Oximetry 98 97 Oxygen Delivery Mechanical Ventilation Fraction of Inspired Oxygen 40 07/29/24 06:00 07/29/24 07:32 07/29/24 07:39 Temperature 37.3 C Pulse Rate 19 L 51 L 50 L Respiratory Rate 20 18 Blood Pressure 147/47 H Pulse Oximetry 96 98 Oxygen Delivery Mechanical Ventilation Fraction of Inspired Oxygen 40 07/29/24 08:00 07/29/24 08:00 07/29/24 08:00 Temperature 37.3 C Pulse Rate 68 54 L Respiratory Rate 20 18 Blood Pressure 99/59 L Pulse Oximetry 100 95 Oxygen Delivery Mechanical Ventilation Fraction of Inspired Oxygen 40 40 Intake/Output Intake/Output: Intake & Output 07/26/24 07/27/24 07/28/24 07/29/24 23:59 23:59 23:59 23:59 Intake Total 1575.0 1643.9 807.7 936.8 Output Total 1660 1700 900 600 Balance -85.0 -56.1 -92.3 336.8 Meds/Results Medications: Active Medications Generic Name Dose Route Start Last Admin Trade Name Freq PRN Reason Stop Dose Admin Acetaminophen 650 mg 07/28/24 12:52 Acetaminophen Elixir 325 Mg/10.15 Ml Udc PO Q4H PRN Mild Pain (1-3) or Fever Albuterol 5 mg 07/26/24 10:06 Albuterol Sulfate Neb 2.5 Mg/3 Ml Inh INHALATION Q6HRT PRN Wheezing Dextrose 12.5 gm 07/27/24 07:28 Dextrose 50% 25 Gm/50 Ml Syringe IV PUSH PRN PRN Hypoglycemia Protocol Enoxaparin Sodium 80 mg 07/28/24 09:00 07/28/24 20:33 Enoxaparin 80 Mg/0.8 Ml Syringe SUB-Q 80 mg Q12HR TYREL Administration Glucagon 1 mg 07/27/24 07:28 Glucagon For Inj 1 Mg Vial IM PRN PRN Hypoglycemia Protocol Glucose 15 gm 07/27/24 07:28 Glucose Oral Gel 15 Gm Of Glucse In 37.5 Gm Tube PO PRN PRN Hypoglycemia Protocol Meropenem 1 gm in 100 mls @ 200 mls/hr 07/26/24 06:00 07/29/24 06:54 IVPB Infused Q8HR TYREL Infusion Propofol 100 mls @ 4.596 mls/hr 07/26/24 11:15 07/29/24 06:00 Diprivan IV CONT 10 mcg/kg/min .[id number] TYREL 4.6 mls/hr Titration Protocol 10 MCG/KG/MIN Dextrose 1,000 mls @ 100 mls/hr 07/27/24 07:28 Dextrose 5% 1,000 Ml IVPB PRN PRN Hypoglycemia Protocol Insulin Aspart 4 - 8 units 07/27/24 07:30 07/29/24 04:34 Insulin Aspart (*Bkc) 100 Units/Ml SUB-Q 4 units Q4H TYREL Administration Protocol Insulin Glargine 35 units 07/29/24 09:00 Insulin Glargine (*Bkc) 100 Units/Ml SUB-Q QAM TYREL Ipratropium Hannah 0.5 mg 07/26/24 10:06 Ipratropium Br 0.02% Inh Soln 0.5 Mg/2.5 Ml Vial INHALATION Q6HRT PRN Wheezing Methylprednisolone Sodium Succinate 40 mg 07/28/24 09:00 07/28/24 08:25 Methylprednisolone Sod Succ 40 Mg Vial IV PUSH 07/31/24 08:59 40 mg QAM TYREL Administration Metoprolol Tartrate 5 mg 07/27/24 09:55 Metoprolol Tartrate Inj 5 Mg/5 Ml Vial IV PUSH Q4H PRN Tachycardia Multi-Ingred Cream/Lotion/Oil/Oint 1 applic 07/26/24 21:00 07/28/24 20:40 Mineral Oil/White Petrolatum Ointment EACH EYE 1 applic Q12HR TYREL Administration Pantoprazole Sodium 40 mg 07/26/24 09:00 07/28/24 08:25 Pantoprazole Sodium Iv 40 Mg Vial IV PUSH 40 mg DAILY TYREL Administration Perflutren Lipid Microsphere 0 ml 07/27/24 09:56 Perflutren Lipid Microspheres 1.5 Ml Vial Diluted To 10 Ml Total Volume IV PUSH 07/30/24 09:56 ONCE PRN adequate visualization Protocol Sodium Chloride 10 ml 07/26/24 22:00 07/29/24 04:34 Central Line Flush IV PUSH 10 ml Q8HR TYREL Administration Sodium Chloride 20 ml 07/26/24 20:30 07/29/24 04:34 Central Line Flush IV PUSH 20 ml PRN PRN Administration after blood draws Sotalol HCl 80 mg 07/26/24 09:00 07/28/24 20:33 Sotalol Hcl 80 Mg Tablet FEED TUBE 80 mg Q12HR TYREL Administration Radiology Results: ITS Impressions Head CT 07/25/24 21:08 Impression: No large acute intracranial hemorrhage or suspicious mass effect. Abdomen X-Ray 07/25/24 22:47 IMPRESSION: Endotracheal tube in good radiographic position. Orogastric tube in good position, and ready for immediate use. Redemonstration of a left upper lobe infiltrate, now with mild to moderate pulmonary vascular congestion Chest CT 07/26/24 05:14 Impression: Moderate left pleural effusion is increased from prior exam. Minimal right pleural effusion. Extensive presumed atelectatic changes in the left lower lobe and left upper lobe/lingula with mild right basilar atelectasis. Correlate clinically for pulmonary edema or pneumonia. Stable irregular airspace consolidation left lung apex, suggestive of chronic scarring or postinflammatory change. Correlate for acute pneumonia. Venous Doppler Study 07/26/24 11:15 IMPRESSION: 1: No lower extremity deep venous thrombosis. Chest X-Ray 07/29/24 06:15 Impression: 1: Multifocal airspace disease, compatible with pneumonia with probable superimposed mild interstitial edema. Labs Labs: Laboratory Results - last 24 hr 07/28/24 07/28/24 07/28/24 05:41 11:55 17:03 WBC RBC Hgb Hct MCV MCH MCHC RDW Plt Count MPV Puncture Site ABG pH ABG pCO2 ABG pO2 ABG PO2/FiO2 Ratio ABG HCO3 ABG O2 Saturation ABG O2 Content ABG Base Excess A-a Gradient Oxyhemoglobin Carboxyhemoglobin Methemoglobin Reduced Hemoglobin Total Hemoglobin O2 Delivery Device O2 Liters/Min Minute Volume Vent Rate Vent Mode FiO2 Tidal Volume PEEP Peak Inspir Pressure Pressure Support Sodium Potassium Chloride Carbon Dioxide Anion Gap BUN Creatinine Estim Creat Clear Calc Estimated GFR Glucose POC Capillary Glucose 216 H 272 H Calcium Magnesium Total Bilirubin AST ALT Alkaline Phosphatase Total Protein Albumin Triglycerides 106 07/28/24 07/28/24 07/29/24 20:16 23:51 04:22 WBC RBC Hgb Hct MCV MCH MCHC RDW Plt Count MPV Puncture Site ABG pH ABG pCO2 ABG pO2 ABG PO2/FiO2 Ratio ABG HCO3 ABG O2 Saturation ABG O2 Content ABG Base Excess A-a Gradient Oxyhemoglobin Carboxyhemoglobin Methemoglobin Reduced Hemoglobin Total Hemoglobin O2 Delivery Device O2 Liters/Min Minute Volume Vent Rate Vent Mode FiO2 Tidal Volume PEEP Peak Inspir Pressure Pressure Support Sodium Potassium Chloride Carbon Dioxide Anion Gap BUN Creatinine Estim Creat Clear Calc Estimated GFR Glucose POC Capillary Glucose 260 H 244 H 208 H Calcium Magnesium Total Bilirubin AST ALT Alkaline Phosphatase Total Protein Albumin Triglycerides 07/29/24 07/29/24 07/29/24 04:41 05:02 07:50 WBC 8.1 RBC 3.07 L Hgb 9.6 L Hct 30.6 L MCV 99.7 MCH 31.3 MCHC 31.4 L RDW 15.1 H Plt Count 130 L MPV 12.3 H Puncture Site Right radial ABG pH 7.532 H* ABG pCO2 30.8 L ABG pO2 73.7 L ABG PO2/FiO2 Ratio 1.84 ABG HCO3 25.3 ABG O2 Saturation 96.4 ABG O2 Content 14.1 L ABG Base Excess 3.0 A-a Gradient 176.1 Oxyhemoglobin 95.1 Carboxyhemoglobin 0.0 Methemoglobin 0.3 Reduced Hemoglobin 4.6 Total Hemoglobin 10.5 L O2 Delivery Device Ventilator O2 Liters/Min Not Reportable Minute Volume Not Reportable Vent Rate 20 Vent Mode Cmv FiO2 40 Tidal Volume 380 PEEP 8 Peak Inspir Pressure Not Reportable Pressure Support Not Reportable Sodium 136 L Potassium 3.7 Chloride 104 Carbon Dioxide 28 Anion Gap 4 BUN 33 H Creatinine 0.75 Estim Creat Clear Calc 57 Estimated GFR > 60 Glucose 237 H POC Capillary Glucose 188 H Calcium 8.6 Magnesium 2.0 Total Bilirubin 0.2 AST 26 ALT 20 Alkaline Phosphatase 74 Total Protein 6.0 L Albumin 2.7 L Triglycerides Quality VTE Prophylaxis VTE prophylaxis: pharmacologic ordered
--- NOTE | 2024-07-29 09:11 | P.PNCA_ITS ---
Progress Note: A&P Assessment and Plan (1) Atrial fibrillation with rapid ventricular response: Code(s): I48.91 - Unspecified atrial fibrillation Status: Acute Assessment and Plan: -AFib is nonvalvular; TTE-showed normal LVEF 65-70%, diastolic dysfunction grade 1, moderately enlarged left atrium, mild MR and mild TR -she remains in sinus rhythm with rates in the 50s to 60s -Continue anticoagulation with Eliquis -Continue Sotalol at home dose -Check and replace electrolytes as needed to keep K>4 and Mg>2 Thank you for allowing us to participate in the care of with Ms. Cardenas. Cardiology will sign off. Please call us with any questions. Subjective Date/time seen: 07/29/24 09:11 Interval history: Reason for encounter: AFib with RVR Relevant history: 74 year old female with past medical history of insulin- dependent diabetes mellitus, essential hypertension, paroxysmal atrial fibrillation on sotalol and apixaban, hyperlipidemia, tobacco abuse, COPD with history of prior respiratory failure, pulmonary hypertension and chronic anemia who was brought to the ER last night after she was found unresponsive at home. EMS found patient's blood sugar was 23. She was administered 1 dose of glucose with no significant improvement in blood glucose. Patient was then brought to ER. Patient was hypoxic and was placed on supplemental oxygen. Patient was not protecting her airway and was intubated and placed on mechanical ventilation. Blood glucose eventually improved after administration of multiple amps of D50. There was no improvement with Narcan. UA was suggestive of UTI and she was started on antibiotic. When she presented to the ER she was in SR but went into A fib with RVR and cardiology was consulted for further recommendations. She was started on Cardizem drip and her home sotalol was continued. Interval history: She remains in sinus rhythm today with heart rate in the 50s to 60s. She is intubated and unable to obtain further history. Review of Systems Review of Systems: A complete review of systems could not be performed as patient is intubated and sedated. Exam Narrative: General: intubated and sedated, no acute distress Neck: Supple, JVD + Chest: Bilaterally clear to auscultation, no rales or rhonchi Cardiac: S1, S2 +, regular rate and regular rhythm, no murmurs or rubs Extremities: No pedal edema, no skin rash Neurologic: Intubated and sedated Objective Data Vital Signs Vital Signs: Vital Signs - 24 hr 07/28/24 10:00 07/28/24 10:00 07/28/24 10:00 Temperature 37.6 C H Pulse Rate 63 60 63 Respiratory Rate 20 20 Blood Pressure 155/54 H Pulse Oximetry 96 Oxygen Delivery Fraction of Inspired Oxygen 07/28/24 10:51 07/28/24 12:00 07/28/24 12:00 Temperature Pulse Rate 64 58 L Respiratory Rate Blood Pressure Pulse Oximetry 96 Oxygen Delivery Mechanical Ventilation Fraction of Inspired Oxygen 40 40 07/28/24 12:00 07/28/24 12:00 07/28/24 12:00 Temperature 37.8 C H Pulse Rate 54 L 70 Respiratory Rate 20 20 Blood Pressure 153/53 H Pulse Oximetry 97 97 Oxygen Delivery Mechanical Ventilation Fraction of Inspired Oxygen 40 07/28/24 12:52 07/28/24 13:35 07/28/24 14:00 Temperature 37.8 C H Pulse Rate 53 L 67 Respiratory Rate 20 Blood Pressure 153/51 H Pulse Oximetry 96 95 Oxygen Delivery Mechanical Ventilation Fraction of Inspired Oxygen 40 40 07/28/24 14:00 07/28/24 14:00 07/28/24 16:00 Temperature Pulse Rate 67 58 L 57 L Respiratory Rate 20 20 Blood Pressure Pulse Oximetry Oxygen Delivery Fraction of Inspired Oxygen 07/28/24 16:00 07/28/24 16:00 07/28/24 16:00 Temperature 37.6 C Pulse Rate 66 51 L Respiratory Rate 20 Blood Pressure 159/56 H Pulse Oximetry 93 Oxygen Delivery Fraction of Inspired Oxygen 40 07/28/24 16:00 07/28/24 16:41 07/28/24 17:20 Temperature Pulse Rate 56 L 55 L 56 L Respiratory Rate 20 20 Blood Pressure Pulse Oximetry 93 95 Oxygen Delivery Mechanical Ventilation Mechanical Ventilation Fraction of Inspired Oxygen 40 40 07/28/24 17:24 07/28/24 18:00 07/28/24 18:00 Temperature 37.6 C Pulse Rate 73 55 L 55 L Respiratory Rate 22 H 20 Blood Pressure 153/53 H Pulse Oximetry 93 Oxygen Delivery Fraction of Inspired Oxygen 07/28/24 18:09 07/28/24 19:00 07/28/24 19:01 Temperature 37.4 C 37.5 C Pulse Rate 55 L 53 L 57 L Respiratory Rate 20 Blood Pressure 155/56 H Pulse Oximetry 94 94 Oxygen Delivery Fraction of Inspired Oxygen 07/28/24 19:09 07/28/24 19:15 07/28/24 19:30 Temperature 37.4 C 37.4 C Pulse Rate 61 53 L 52 L Respiratory Rate 21 H 20 Blood Pressure Pulse Oximetry 94 93 Oxygen Delivery Fraction of Inspired Oxygen 07/28/24 19:31 07/28/24 19:45 07/28/24 20:00 Temperature 37.4 C 37.4 C Pulse Rate 51 L 55 L 55 L Respiratory Rate 20 20 Blood Pressure 151/53 H Pulse Oximetry 93 94 Oxygen Delivery Fraction of Inspired Oxygen 07/28/24 20:00 07/28/24 20:00 07/28/24 20:00 Temperature Pulse Rate 55 L 56 L Respiratory Rate 20 Blood Pressure Pulse Oximetry 93 Oxygen Delivery Mechanical Ventilation Fraction of Inspired Oxygen 40 40 07/28/24 20:01 07/28/24 20:15 07/28/24 20:30 Temperature 37.3 C 37.3 C 37.3 C Pulse Rate 56 L 51 L 53 L Respiratory Rate 20 Blood Pressure 155/61 H Pulse Oximetry 93 92 94 Oxygen Delivery Fraction of Inspired Oxygen 07/28/24 20:31 07/28/24 20:33 07/28/24 20:45 Temperature 37.3 C 37.3 C Pulse Rate 52 L 53 L 57 L Respiratory Rate 20 Blood Pressure 155/57 H Pulse Oximetry 96 93 Oxygen Delivery Fraction of Inspired Oxygen 07/28/24 21:00 07/28/24 21:01 07/28/24 21:15 Temperature 37.3 C 37.3 C 37.0 C Pulse Rate 56 L 48 L 51 L Respiratory Rate 20 Blood Pressure 140/69 Pulse Oximetry 100 98 96 Oxygen Delivery Fraction of Inspired Oxygen 07/28/24 21:30 07/28/24 21:39 07/28/24 22:00 Temperature 37.3 C Pulse Rate 50 L 46 L 49 L Respiratory Rate Blood Pressure Pulse Oximetry 97 95 Oxygen Delivery Mechanical Ventilation Fraction of Inspired Oxygen 40 07/28/24 22:00 07/28/24 22:00 07/29/24 00:00 Temperature 37.2 C Pulse Rate 49 L 49 L 56 L Respiratory Rate 20 20 Blood Pressure 148/45 H Pulse Oximetry 95 100 Oxygen Delivery Mechanical Ventilation Fraction of Inspired Oxygen 40 07/29/24 00:00 07/29/24 00:00 07/29/24 00:00 Temperature 37.2 C Pulse Rate 57 L 56 L Respiratory Rate 20 Blood Pressure 155/46 H Pulse Oximetry 100 Oxygen Delivery Fraction of Inspired Oxygen 40 07/29/24 00:00 07/29/24 00:44 07/29/24 02:00 Temperature Pulse Rate 56 L 49 L 48 L Respiratory Rate 20 Blood Pressure Pulse Oximetry 98 Oxygen Delivery Mechanical Ventilation Fraction of Inspired Oxygen 40 07/29/24 02:00 07/29/24 02:00 07/29/24 02:20 Temperature 37.4 C Pulse Rate 48 L 48 L 50 L Respiratory Rate 20 20 Blood Pressure 128/52 L Pulse Oximetry 98 97 Oxygen Delivery Mechanical Ventilation Fraction of Inspired Oxygen 40 07/29/24 04:00 07/29/24 04:00 07/29/24 04:00 Temperature Pulse Rate 46 L 46 L 46 L Respiratory Rate 20 20 Blood Pressure Pulse Oximetry 97 Oxygen Delivery Mechanical Ventilation Fraction of Inspired Oxygen 40 07/29/24 04:00 07/29/24 04:00 07/29/24 05:08 Temperature 37.2 C Pulse Rate 46 L 50 L Respiratory Rate 20 Blood Pressure 138/49 L Pulse Oximetry 97 98 Oxygen Delivery Mechanical Ventilation Fraction of Inspired Oxygen 40 40 07/29/24 06:00 07/29/24 06:00 07/29/24 06:00 Temperature Pulse Rate 49 L 49 L 19 L Respiratory Rate 20 20 Blood Pressure 150/44 H Pulse Oximetry 97 Oxygen Delivery Fraction of Inspired Oxygen 07/29/24 07:32 07/29/24 07:39 07/29/24 08:00 Temperature 37.3 C Pulse Rate 51 L 50 L Respiratory Rate 18 Blood Pressure 147/47 H Pulse Oximetry 96 98 Oxygen Delivery Mechanical Ventilation Fraction of Inspired Oxygen 40 40 07/29/24 08:00 07/29/24 08:00 07/29/24 08:00 Temperature 37.3 C Pulse Rate 68 54 L 61 Respiratory Rate 20 18 Blood Pressure 99/59 L Pulse Oximetry 100 95 Oxygen Delivery Mechanical Ventilation Fraction of Inspired Oxygen 40 07/29/24 08:00 Temperature Pulse Rate 55 L Respiratory Rate 18 Blood Pressure Pulse Oximetry Oxygen Delivery Fraction of Inspired Oxygen Intake/Output Intake/Output: Intake & Output 07/26/24 07/27/24 07/28/24 07/29/24 23:59 23:59 23:59 23:59 Intake Total 1575.0 1643.9 807.7 946.0 Output Total 1660 1700 900 600 Balance -85.0 -56.1 -92.3 346.0 Meds/Results Medications: Active Medications Generic Name Dose Route Start Last Admin Trade Name Freq PRN Reason Stop Dose Admin Acetaminophen 650 mg 07/28/24 12:52 Acetaminophen Elixir 325 Mg/10.15 Ml Udc PO Q4H PRN Mild Pain (1-3) or Fever Albuterol 5 mg 07/26/24 10:06 Albuterol Sulfate Neb 2.5 Mg/3 Ml Inh INHALATION Q6HRT PRN Wheezing Dextrose 12.5 gm 07/27/24 07:28 Dextrose 50% 25 Gm/50 Ml Syringe IV PUSH PRN PRN Hypoglycemia Protocol Enoxaparin Sodium 80 mg 07/28/24 09:00 07/28/24 20:33 Enoxaparin 80 Mg/0.8 Ml Syringe SUB-Q 80 mg Q12HR TYREL Administration Glucagon 1 mg 07/27/24 07:28 Glucagon For Inj 1 Mg Vial IM PRN PRN Hypoglycemia Protocol Glucose 15 gm 07/27/24 07:28 Glucose Oral Gel 15 Gm Of Glucse In 37.5 Gm Tube PO PRN PRN Hypoglycemia Protocol Meropenem 1 gm in 100 mls @ 200 mls/hr 07/26/24 06:00 07/29/24 06:54 IVPB Infused Q8HR TYREL Infusion Propofol 100 mls @ 0 mls/hr 07/26/24 11:15 07/29/24 08:00 Diprivan IV CONT 0 mcg/kg/min .Q0M TYREL 0 mls/hr Titration Protocol 0 MCG/KG/MIN Dextrose 1,000 mls @ 100 mls/hr 07/27/24 07:28 Dextrose 5% 1,000 Ml IVPB PRN PRN Hypoglycemia Protocol Insulin Aspart 4 - 8 units 07/27/24 07:30 07/29/24 08:40 Insulin Aspart (*Bkc) 100 Units/Ml SUB-Q Not Given Q4H TYREL Protocol Insulin Glargine 35 units 07/29/24 09:00 Insulin Glargine (*Bkc) 100 Units/Ml SUB-Q QAM TYREL Ipratropium Baring 0.5 mg 07/26/24 10:06 Ipratropium Br 0.02% Inh Soln 0.5 Mg/2.5 Ml Vial INHALATION Q6HRT PRN Wheezing Methylprednisolone Sodium Succinate 40 mg 07/28/24 09:00 07/28/24 08:25 Methylprednisolone Sod Succ 40 Mg Vial IV PUSH 07/31/24 08:59 40 mg QAM TYREL Administration Metoprolol Tartrate 5 mg 07/27/24 09:55 Metoprolol Tartrate Inj 5 Mg/5 Ml Vial IV PUSH Q4H PRN Tachycardia Multi-Ingred Cream/Lotion/Oil/Oint 1 applic 07/26/24 21:00 07/28/24 20:40 Mineral Oil/White Petrolatum Ointment EACH EYE 1 applic Q12HR TYREL Administration Pantoprazole Sodium 40 mg 07/26/24 09:00 07/28/24 08:25 Pantoprazole Sodium Iv 40 Mg Vial IV PUSH 40 mg DAILY TYREL Administration Perflutren Lipid Microsphere 0 ml 07/27/24 09:56 Perflutren Lipid Microspheres 1.5 Ml Vial Diluted To 10 Ml Total Volume IV PUSH 07/30/24 09:56 ONCE PRN adequate visualization Protocol Sodium Chloride 10 ml 07/26/24 22:00 07/29/24 04:34 Central Line Flush IV PUSH 10 ml Q8HR TYREL Administration Sodium Chloride 20 ml 07/26/24 20:30 07/29/24 04:34 Central Line Flush IV PUSH 20 ml PRN PRN Administration after blood draws Sotalol HCl 80 mg 07/26/24 09:00 07/28/24 20:33 Sotalol Hcl 80 Mg Tablet FEED TUBE 80 mg Q12HR TYREL Administration Radiology Results: ITS Impressions Head CT 07/25/24 21:08 Impression: No large acute intracranial hemorrhage or suspicious mass effect. Abdomen X-Ray 07/25/24 22:47 IMPRESSION: Endotracheal tube in good radiographic position. Orogastric tube in good position, and ready for immediate use. Redemonstration of a left upper lobe infiltrate, now with mild to moderate pulmonary vascular congestion Chest CT 07/26/24 05:14 Impression: Moderate left pleural effusion is increased from prior exam. Minimal right pleural effusion. Extensive presumed atelectatic changes in the left lower lobe and left upper lobe/lingula with mild right basilar atelectasis. Correlate clinically for pulmonary edema or pneumonia. Stable irregular airspace consolidation left lung apex, suggestive of chronic scarring or postinflammatory change. Correlate for acute pneumonia. Venous Doppler Study 07/26/24 11:15 IMPRESSION: 1: No lower extremity deep venous thrombosis. Chest X-Ray 07/29/24 06:15 Impression: 1: Multifocal airspace disease, compatible with pneumonia with probable superimposed mild interstitial edema. Labs Labs: Laboratory Results - last 24 hr 07/28/24 07/28/24 07/28/24 05:41 11:55 17:03 WBC RBC Hgb Hct MCV MCH MCHC RDW Plt Count MPV Puncture Site ABG pH ABG pCO2 ABG pO2 ABG PO2/FiO2 Ratio ABG HCO3 ABG O2 Saturation ABG O2 Content ABG Base Excess A-a Gradient Oxyhemoglobin Carboxyhemoglobin Methemoglobin Reduced Hemoglobin Total Hemoglobin O2 Delivery Device O2 Liters/Min Minute Volume Vent Rate Vent Mode FiO2 Tidal Volume PEEP Peak Inspir Pressure Pressure Support Sodium Potassium Chloride Carbon Dioxide Anion Gap BUN Creatinine Estim Creat Clear Calc Estimated GFR Glucose POC Capillary Glucose 216 H 272 H Calcium Magnesium Total Bilirubin AST ALT Alkaline Phosphatase Total Protein Albumin Triglycerides 106 07/28/24 07/28/24 07/29/24 20:16 23:51 04:22 WBC RBC Hgb Hct MCV MCH MCHC RDW Plt Count MPV Puncture Site ABG pH ABG pCO2 ABG pO2 ABG PO2/FiO2 Ratio ABG HCO3 ABG O2 Saturation ABG O2 Content ABG Base Excess A-a Gradient Oxyhemoglobin Carboxyhemoglobin Methemoglobin Reduced Hemoglobin Total Hemoglobin O2 Delivery Device O2 Liters/Min Minute Volume Vent Rate Vent Mode FiO2 Tidal Volume PEEP Peak Inspir Pressure Pressure Support Sodium Potassium Chloride Carbon Dioxide Anion Gap BUN Creatinine Estim Creat Clear Calc Estimated GFR Glucose POC Capillary Glucose 260 H 244 H 208 H Calcium Magnesium Total Bilirubin AST ALT Alkaline Phosphatase Total Protein Albumin Triglycerides 07/29/24 07/29/24 07/29/24 04:41 05:02 07:50 WBC 8.1 RBC 3.07 L Hgb 9.6 L Hct 30.6 L MCV 99.7 MCH 31.3 MCHC 31.4 L RDW 15.1 H Plt Count 130 L MPV 12.3 H Puncture Site Right radial ABG pH 7.532 H* ABG pCO2 30.8 L ABG pO2 73.7 L ABG PO2/FiO2 Ratio 1.84 ABG HCO3 25.3 ABG O2 Saturation 96.4 ABG O2 Content 14.1 L ABG Base Excess 3.0 A-a Gradient 176.1 Oxyhemoglobin 95.1 Carboxyhemoglobin 0.0 Methemoglobin 0.3 Reduced Hemoglobin 4.6 Total Hemoglobin 10.5 L O2 Delivery Device Ventilator O2 Liters/Min Not Reportable Minute Volume Not Reportable Vent Rate 20 Vent Mode Cmv FiO2 40 Tidal Volume 380 PEEP 8 Peak Inspir Pressure Not Reportable Pressure Support Not Reportable Sodium 136 L Potassium 3.7 Chloride 104 Carbon Dioxide 28 Anion Gap 4 BUN 33 H Creatinine 0.75 Estim Creat Clear Calc 57 Estimated GFR > 60 Glucose 237 H POC Capillary Glucose 188 H Calcium 8.6 Magnesium 2.0 Total Bilirubin 0.2 AST 26 ALT 20 Alkaline Phosphatase 74 Total Protein 6.0 L Albumin 2.7 L Triglycerides
[2024-07-29] MEDS: FUROSEMIDE INJ 40 MG/4 ML VIAL IV PUSH (09:22)
[2024-07-29] MEDS: SOTALOL HCL 80 MG TABLET FEED TUBE (09:22)
[2024-07-29] MEDS: POTASSIUM CHLORIDE 20 MEQ PACKET (FOR LIQUID) 40 MEQ FEED TUBE (09:22)
[2024-07-29] MEDS: ENOXAPARIN 80 MG/0.8 ML SYRINGE SUB-Q ×2 (09:23→21:19)
[2024-07-29] MEDS: MINERAL OIL/WHITE PETROLATUM OINTMENT 1 APPLIC EACH EYE ×2 (09:23→21:19)
[2024-07-29] MEDS: methylPREDNISolone SOD SUCC 40 MG VIAL IV PUSH (09:23)
[2024-07-29] MEDS: PANTOPRAZOLE SODIUM IV 40 MG VIAL IV PUSH (09:23)
[2024-07-29] MEDS: INSULIN GLARGINE (*BKC) 100 UNITS/ML 35 UNITS SUB-Q (09:34)
[2024-07-29 11:55] LABS: Glucose Point of Care 199 mg/dl (65-105)
[2024-07-29] MEDS: hydrALAZINE HCL 20 MG/ML VIAL IV PUSH (13:42)
--- NOTE | 2024-07-29 14:39 | P.PNIM_ITS ---
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 of insulin Status: Acute (2) Acute respiratory failure with hypoxia: Code(s): J96.01 - Acute respiratory failure with hypoxia Status: Acute (3) Acute UTI: Code(s): N39.0 - Urinary tract infection, site not specified Status: Acute (4) Altered mental status: Qualifiers: Altered mental status type: coma Coma depth: Gar[place] coma 3-8 Coma timing: at hospital admission Qualified Code(s): R40.2433 - [place] coma scale score 3-8, at hospital admission Code(s): R41.82 - Altered mental status, unspecified Status: Acute (5) Pleural effusion: Code(s): J90 - Pleural effusion, not elsewhere classified Status: Acute Plan Severe hypoglycemia due to insulin use and likely associated decreased oral intake. Patient had profound persistent hypoglycemia despite glucose administration in had recurrence of hypoglycemia. Subsequently D5 W was started at 75 mL an hour. Will continue to check hourly Accu-Cheks until stabilized. The patient does have a classical coma Scale of 6 likely resultant encephalopathy from suspected hypoglycemic seizure given injury to the patient's tongue. There is likely some postictal state and some residual encephalopathy from hypoglycemia. CT of the head did not demonstrated any acute intercranial process. The patient has become a little bit more responsive and subsequently has required some sedation with fentanyl and Versed. The patient did have associated acute hypoxic respiratory failure due to the above factors requiring intubation. Initial ventilator settings were AC/CMV tidal volume 340 rate of 18 peep of 5 repeat ABG did demonstrate mild respiratory acidosis with hypercapnia. Subsequently tidal volume was increased to 360. Daily chest x-ray has been ordered. When the patient's history of COPD and in the setting of acquired intubation will place patient on scheduled nebulizer treatment. Patient has UA suggestive of UTI and had a low-grade fever with associated tachypnea and leukocytosis patient does fit sepsis criteria without evidence of septic shock. Patient was started on broad-spectrum antibiotics with meropenem. Blood cultures and urine cultures have been obtained. Patient's CT of the chest also demonstrated findings with possible underlying pneumonia given development of hypoxic respiratory failure and suspected seizure pneumonia/aspiration pneumonitis cannot be ruled out. Will broaden antibiotic coverage with azithromycin and vancomycin. Will obtain sputum culture. Will repeat CBC and electrolyte panel. Patient does have pleural effusion moderate in nature likely associated with pneumonia. CHF less likely given the patient had echocardiogram with normal systolic function and normal diastolic function in April of this year. She did have some mild pulmonary hypertension. Given the patient's underlying history of COPD in the setting of underlying pneumonia. patient remains on ventilator, seen by justice of the peace and neurologist suspect metabolic encephalopathy 2/2 hypoglycemia resulting in seizure and unresponsiveness, patient was given IVF and glucose, and her blood sugars now trending up and close to normal, patient also has sepsis 2/2 UTI is growing E. coli and aspiration pneumonia being treated with meropenem, patient now has Atrial fibrillation most likely triggered by hypoglycemia, aspiration pneumonia and uti, patient off diltiazem drip and on Sotalol seen by pre kindergarten teacher. today patient is slightly responsive to verbal commands and opens here eyes, but remains unresponsive. discuss with justice of the peace ordered CT scan of the head which is normal, seen by neurologist and EEG is pending. prognosis is poor. Subjective Date/time seen: 07/29/24 14:40 Interval history: Unresponsive H&P-Narrative: 74-year-old female with a past medical history insulin-dependent diabetes mellitus, essential hypertension, paroxysmal atrial fibrillation, hyperlipidemia chronic inhaled nicotine use, COPD with history of prior respiratory failure, pulmonary hypertension and chronic anemia among other chronic comorbidities who presented to the ER after being found unresponsive at home. The patient's daughter reports that see you last solid patient while before 16:30 on the 6. Daughter reported that she left to go to a ball game when she came home her mother was asleep. Daughter than got up and went to work the next day and when she came home from work around 630 p.m. she found the patient unresponsive and called EMS. EMS reported that the patient's initial blood sugar on arrival to the scene was 23 with a repeat reading of 36. Patient was given 1 dose of glucose on with no improvement in glucose in the patient was brought into the ER for evaluation. Patient was maintaining O2 sats on room air with the sats in the low 90s. The patient was unarousable and snoring in triage in repeat glucose at that time was 11. Patient had a right femoral central line placed AMS could not obtain IV access and patient received an amp of D50 with repeat glucose on BMP of 286. However patient did trend back down within 3 hours down to 49. Patient did spike a fever after arrival to the ER and UA was suggestive of UTI. The patient remained obtunded despite improved blood sugars and she had evidence of bruising to the tongue suggesting recent seizure. The patient was subsequently intubated for airway protection. Patient also was having hypoxia on 15 L non-rebreather with sats down to 79% ABG 1 hour after intubation with an settings AC/CMP tidal volume of 340 peep of 5 rate of 18 and 50% FiO2 demonstrated pH of 7.37 pCO2 of 41.9 and PO2 of 72. Patient's urine was suggestive of UTI patient was started on meropenem. Blood cultures were obtained and are pending. CT of the head demonstrated no acute intercranial process. patient remains on ventilator, seen by justice of the peace and neurologist suspect metabolic encephalopathy 2/2 hypoglycemia resulting in seizure and unresponsiveness, patient was given IVF and glucose, and her blood sugars now trending up and close to normal, patient also has sepsis 2/2 UTI is growing E. coli and aspiration pneumonia being treated with meropenem, patient now has Atrial fibrillation most likely triggered by hypoglycemia, aspiration pneumonia and uti, patient off diltiazem drip and on Sotalol seen by pre kindergarten teacher. today patient is slightly responsive to verbal commands and opens here eyes, but remains unresponsive. discuss with justice of the peace ordered CT scan of the head which is normal, seen by neurologist and EEG is pending. prognosis is poor. Review of Systems Review of Systems: ROS unobtainable: Yes unobtainable due to endotracheal tube Exam Narrative: Patient is comfortable, NAD HEENT: ET tube in place LUNGS:CTA HEART: RR S1S2 ABD: BS+, Soft and nontender Lower extremities: no edema SKIN: nonjaundiced Neuro: On vent and sedated Objective Data Vital Signs Vital Signs: Vital Signs - 24 hr 07/28/24 16:00 07/28/24 16:00 07/28/24 16:00 Temperature Pulse Rate 57 L 66 Respiratory Rate 20 Blood Pressure Pulse Oximetry Oxygen Delivery Fraction of Inspired Oxygen 40 07/28/24 16:00 07/28/24 16:00 07/28/24 16:41 Temperature 37.6 C Pulse Rate 51 L 56 L 55 L Respiratory Rate 20 20 Blood Pressure 159/56 H Pulse Oximetry 93 93 95 Oxygen Delivery Mechanical Ventilation Mechanical Ventilation Fraction of Inspired Oxygen 40 40 07/28/24 17:20 07/28/24 17:24 07/28/24 18:00 Temperature Pulse Rate 56 L 73 55 L Respiratory Rate 20 22 H Blood Pressure Pulse Oximetry Oxygen Delivery Fraction of Inspired Oxygen 07/28/24 18:00 07/28/24 18:09 07/28/24 19:00 Temperature 37.6 C 37.4 C Pulse Rate 55 L 55 L 53 L Respiratory Rate 20 20 Blood Pressure 153/53 H Pulse Oximetry 93 94 Oxygen Delivery Fraction of Inspired Oxygen 07/28/24 19:01 07/28/24 19:09 07/28/24 19:15 Temperature 37.5 C 37.4 C Pulse Rate 57 L 61 53 L Respiratory Rate 21 H 20 Blood Pressure 155/56 H Pulse Oximetry 94 94 Oxygen Delivery Fraction of Inspired Oxygen 07/28/24 19:30 07/28/24 19:31 07/28/24 19:45 Temperature 37.4 C 37.4 C 37.4 C Pulse Rate 52 L 51 L 55 L Respiratory Rate 20 Blood Pressure 151/53 H Pulse Oximetry 93 93 94 Oxygen Delivery Fraction of Inspired Oxygen 07/28/24 20:00 07/28/24 20:00 07/28/24 20:00 Temperature Pulse Rate 55 L 55 L Respiratory Rate 20 20 Blood Pressure Pulse Oximetry 93 Oxygen Delivery Mechanical Ventilation Fraction of Inspired Oxygen 40 40 07/28/24 20:00 07/28/24 20:01 07/28/24 20:15 Temperature 37.3 C 37.3 C Pulse Rate 56 L 56 L 51 L Respiratory Rate 20 Blood Pressure 155/61 H Pulse Oximetry 93 92 Oxygen Delivery Fraction of Inspired Oxygen 07/28/24 20:30 07/28/24 20:31 07/28/24 20:33 Temperature 37.3 C 37.3 C Pulse Rate 53 L 52 L 53 L Respiratory Rate 20 Blood Pressure 155/57 H Pulse Oximetry 94 96 Oxygen Delivery Fraction of Inspired Oxygen 07/28/24 20:45 07/28/24 21:00 07/28/24 21:01 Temperature 37.3 C 37.3 C 37.3 C Pulse Rate 57 L 56 L 48 L Respiratory Rate Blood Pressure 140/69 Pulse Oximetry 93 100 98 Oxygen Delivery Fraction of Inspired Oxygen 07/28/24 21:15 07/28/24 21:30 07/28/24 21:39 Temperature 37.0 C 37.3 C Pulse Rate 51 L 50 L 46 L Respiratory Rate 20 Blood Pressure Pulse Oximetry 96 97 95 Oxygen Delivery Mechanical Ventilation Fraction of Inspired Oxygen 40 07/28/24 22:00 07/28/24 22:00 07/28/24 22:00 Temperature 37.2 C Pulse Rate 49 L 49 L 49 L Respiratory Rate 20 Blood Pressure 148/45 H Pulse Oximetry 95 Oxygen Delivery Fraction of Inspired Oxygen 07/29/24 00:00 07/29/24 00:00 07/29/24 00:00 Temperature Pulse Rate 56 L 57 L Respiratory Rate 20 Blood Pressure Pulse Oximetry 100 Oxygen Delivery Mechanical Ventilation Fraction of Inspired Oxygen 40 40 07/29/24 00:00 07/29/24 00:00 07/29/24 00:44 Temperature 37.2 C Pulse Rate 56 L 56 L 49 L Respiratory Rate 20 20 Blood Pressure 155/46 H Pulse Oximetry 100 98 Oxygen Delivery Mechanical Ventilation Fraction of Inspired Oxygen 40 07/29/24 02:00 07/29/24 02:00 07/29/24 02:00 Temperature 37.4 C Pulse Rate 48 L 48 L 48 L Respiratory Rate 20 20 Blood Pressure 128/52 L Pulse Oximetry 98 Oxygen Delivery Fraction of Inspired Oxygen 07/29/24 02:20 07/29/24 04:00 07/29/24 04:00 Temperature Pulse Rate 50 L 46 L 46 L Respiratory Rate 20 Blood Pressure Pulse Oximetry 97 Oxygen Delivery Mechanical Ventilation Fraction of Inspired Oxygen 40 07/29/24 04:00 07/29/24 04:00 07/29/24 04:00 Temperature 37.2 C Pulse Rate 46 L 46 L Respiratory Rate 20 20 Blood Pressure 138/49 L Pulse Oximetry 97 97 Oxygen Delivery Mechanical Ventilation Fraction of Inspired Oxygen 40 40 07/29/24 05:08 07/29/24 06:00 07/29/24 06:00 Temperature Pulse Rate 50 L 49 L 49 L Respiratory Rate 20 Blood Pressure 150/44 H Pulse Oximetry 98 97 Oxygen Delivery Mechanical Ventilation Fraction of Inspired Oxygen 40 07/29/24 06:00 07/29/24 07:32 07/29/24 07:39 Temperature 37.3 C Pulse Rate 19 L 51 L 50 L Respiratory Rate 20 18 Blood Pressure 147/47 H Pulse Oximetry 96 98 Oxygen Delivery Mechanical Ventilation Fraction of Inspired Oxygen 40 07/29/24 08:00 07/29/24 08:00 07/29/24 08:00 Temperature 37.3 C Pulse Rate 68 54 L Respiratory Rate 20 18 Blood Pressure 99/59 L Pulse Oximetry 100 95 Oxygen Delivery Mechanical Ventilation Fraction of Inspired Oxygen 40 40 07/29/24 08:00 07/29/24 08:00 07/29/24 08:00 Temperature Pulse Rate 61 55 L 55 L Respiratory Rate 18 18 Blood Pressure Pulse Oximetry Oxygen Delivery Fraction of Inspired Oxygen 07/29/24 09:22 07/29/24 10:00 07/29/24 10:00 Temperature 37.2 C Pulse Rate 49 L 51 L 51 L Respiratory Rate 18 Blood Pressure 162/46 H Pulse Oximetry 97 Oxygen Delivery Fraction of Inspired Oxygen 07/29/24 11:24 07/29/24 12:00 07/29/24 12:00 Temperature 37.6 C Pulse Rate 49 L 51 L Respiratory Rate 18 Blood Pressure 149/59 H Pulse Oximetry 88 L 100 Oxygen Delivery Mechanical Ventilation Fraction of Inspired Oxygen 40 40 07/29/24 12:00 07/29/24 12:00 Temperature Pulse Rate 50 L 52 L Respiratory Rate 18 Blood Pressure Pulse Oximetry 98 Oxygen Delivery Mechanical Ventilation Fraction of Inspired Oxygen 40 Intake/Output Intake/Output: Intake & Output 07/26/24 07/27/24 07/28/24 07/29/24 23:59 23:59 23:59 23:59 Intake Total 1575.0 1643.9 807.7 946.0 Output Total 1660 1712 238 1327 Balance -85.0 -56.1 -92.3 -1104.0 Meds/Results Medications: Active Medications Generic Name Dose Route Start Last Admin Trade Name Freq PRN Reason Stop Dose Admin Acetaminophen 650 mg 07/28/24 12:52 Acetaminophen Elixir 325 Mg/10.15 Ml Udc PO Q4H PRN Mild Pain (1-3) or Fever Albuterol 5 mg 07/26/24 10:06 Albuterol Sulfate Neb 2.5 Mg/3 Ml Inh INHALATION Q6HRT PRN Wheezing Dextrose 12.5 gm 07/27/24 07:28 Dextrose 50% 25 Gm/50 Ml Syringe IV PUSH PRN PRN Hypoglycemia Protocol Enoxaparin Sodium 80 mg 07/28/24 09:00 07/29/24 09:23 Enoxaparin 80 Mg/0.8 Ml Syringe SUB-Q 80 mg Q12HR TYREL Administration Glucagon 1 mg 07/27/24 07:28 Glucagon For Inj 1 Mg Vial IM PRN PRN Hypoglycemia Protocol Glucose 15 gm 07/27/24 07:28 Glucose Oral Gel 15 Gm Of Glucse In 37.5 Gm Tube PO PRN PRN Hypoglycemia Protocol Hydralazine HCl 20 mg 07/29/24 13:37 07/29/24 13:42 Hydralazine Hcl 20 Mg/Ml Vial IV PUSH 20 mg Q4H PRN Administration SBP more than 160 Meropenem 1 gm in 100 mls @ 200 mls/hr 07/26/24 06:00 07/29/24 13:39 IVPB 200 mls/hr Q8HR TYREL Administration Propofol 100 mls @ 0 mls/hr 07/26/24 11:15 07/29/24 08:00 Diprivan IV CONT Infused .Q0M [facility] Titration Protocol 0 MCG/KG/MIN Dextrose 1,000 mls @ 100 mls/hr 07/27/24 07:28 Dextrose 5% 1,000 Ml IVPB PRN PRN Hypoglycemia Protocol Insulin Aspart 4 - 8 units 07/27/24 07:30 07/29/24 12:02 Insulin Aspart (*Bkc) 100 Units/Ml SUB-Q Not Given Q4H [facility] Protocol Insulin Glargine 35 units 07/29/24 09:00 07/29/24 09:34 Insulin Glargine (*Bkc) 100 Units/Ml SUB-Q 35 units QAM TYREL Administration Ipratropium [place] 0.5 mg 07/26/24 10:06 Ipratropium Br 0.02% Inh Soln 0.5 Mg/2.5 Ml Vial INHALATION Q6HRT PRN Wheezing Methylprednisolone Sodium Succinate 40 mg 07/28/24 09:00 07/29/24 09:23 Methylprednisolone Sod Succ 40 Mg Vial IV PUSH 07/31/24 08:59 40 mg QAM TYREL Administration Metoprolol Tartrate 5 mg 07/27/24 09:55 Metoprolol Tartrate Inj 5 Mg/5 Ml Vial IV PUSH Q4H PRN Tachycardia Multi-Ingred Cream/Lotion/Oil/Oint 1 applic 07/26/24 21:00 07/29/24 09:23 Mineral Oil/White Petrolatum Ointment EACH EYE 1 applic Q12HR TYREL Administration Pantoprazole Sodium 40 mg 07/26/24 09:00 07/29/24 09:23 Pantoprazole Sodium Iv 40 Mg Vial IV PUSH 40 mg DAILY TYREL Administration Perflutren Lipid Microsphere 0 ml 07/27/24 09:56 Perflutren Lipid Microspheres 1.5 Ml Vial Diluted To 10 Ml Total Volume IV PUSH 07/30/24 09:56 ONCE PRN adequate visualization Protocol Sodium Chloride 10 ml 07/26/24 22:00 07/29/24 14:08 Central Line Flush IV PUSH 10 ml Q8HR TYREL Administration Sodium Chloride 20 ml 07/26/24 20:30 07/29/24 04:34 Central Line Flush IV PUSH 20 ml PRN PRN Administration after blood draws Sotalol HCl 80 mg 07/26/24 09:00 07/29/24 09:22 Sotalol Hcl 80 Mg Tablet FEED TUBE 80 mg Q12HR TYREL Administration Radiology Results: ITS Impressions Abdomen X-Ray 07/25/24 22:47 IMPRESSION: Endotracheal tube in good radiographic position. Orogastric tube in good position, and ready for immediate use. Redemonstration of a left upper lobe infiltrate, now with mild to moderate pulmonary vascular congestion Chest CT 07/26/24 05:14 Impression: Moderate left pleural effusion is increased from prior exam. Minimal right pleural effusion. Extensive presumed atelectatic changes in the left lower lobe and left upper lobe/lingula with mild right basilar atelectasis. Correlate clinically for pulmonary edema or pneumonia. Stable irregular airspace consolidation left lung apex, suggestive of chronic scarring or postinflammatory change. Correlate for acute pneumonia. Venous Doppler Study 07/26/24 11:15 IMPRESSION: 1: No lower extremity deep venous thrombosis. Chest X-Ray 07/29/24 06:15 Impression: 1: Multifocal airspace disease, compatible with pneumonia with probable superimposed mild interstitial edema. Head CT 07/29/24 11:27 IMPRESSION: 1. No acute intracranial abnormality. 2: Small bilateral mastoid effusions. Labs Labs: Laboratory Results - last 24 hr 07/28/24 07/28/24 07/28/24 17:03 20:16 23:51 WBC RBC Hgb Hct MCV MCH MCHC RDW Plt Count MPV Puncture Site ABG pH ABG pCO2 ABG pO2 ABG PO2/FiO2 Ratio ABG HCO3 ABG O2 Saturation ABG O2 Content ABG Base Excess A-a Gradient Oxyhemoglobin Carboxyhemoglobin Methemoglobin Reduced Hemoglobin Total Hemoglobin O2 Delivery Device O2 Liters/Min Minute Volume Vent Rate Vent Mode FiO2 Tidal Volume PEEP Peak Inspir Pressure Pressure Support Sodium Potassium Chloride Carbon Dioxide Anion Gap BUN Creatinine Estim Creat Clear Calc Estimated GFR Glucose POC Capillary Glucose 272 H 260 H 244 H Calcium Magnesium Total Bilirubin AST ALT Alkaline Phosphatase Total Protein Albumin 07/29/24 07/29/24 07/29/24 04:22 04:41 05:02 WBC 8.1 RBC 3.07 L Hgb 9.6 L Hct 30.6 L MCV 99.7 MCH 31.3 MCHC 31.4 L RDW 15.1 H Plt Count 130 L MPV 12.3 H Puncture Site Right radial ABG pH 7.532 H* ABG pCO2 30.8 L ABG pO2 73.7 L ABG PO2/FiO2 Ratio 1.84 ABG HCO3 25.3 ABG O2 Saturation 96.4 ABG O2 Content 14.1 L ABG Base Excess 3.0 A-a Gradient 176.1 Oxyhemoglobin 95.1 Carboxyhemoglobin 0.0 Methemoglobin 0.3 Reduced Hemoglobin 4.6 Total Hemoglobin 10.5 L O2 Delivery Device Ventilator O2 Liters/Min Not Reportable Minute Volume Not Reportable Vent Rate 20 Vent Mode Cmv FiO2 40 Tidal Volume 380 PEEP 8 Peak Inspir Pressure Not Reportable Pressure Support Not Reportable Sodium 136 L Potassium 3.7 Chloride 104 Carbon Dioxide 28 Anion Gap 4 BUN 33 H Creatinine 0.75 Estim Creat Clear Calc 57 Estimated GFR > 60 Glucose 237 H POC Capillary Glucose 208 H Calcium 8.6 Magnesium 2.0 Total Bilirubin 0.2 AST 26 ALT 20 Alkaline Phosphatase 74 Total Protein 6.0 L Albumin 2.7 L 07/29/24 07/29/24 07:50 11:51 WBC RBC Hgb Hct MCV MCH MCHC RDW Plt Count MPV Puncture Site ABG pH ABG pCO2 ABG pO2 ABG PO2/FiO2 Ratio ABG HCO3 ABG O2 Saturation ABG O2 Content ABG Base Excess A-a Gradient Oxyhemoglobin Carboxyhemoglobin Methemoglobin Reduced Hemoglobin Total Hemoglobin O2 Delivery Device O2 Liters/Min Minute Volume Vent Rate Vent Mode FiO2 Tidal Volume PEEP Peak Inspir Pressure Pressure Support Sodium Potassium Chloride Carbon Dioxide Anion Gap BUN Creatinine Estim Creat Clear Calc Estimated GFR Glucose POC Capillary Glucose 188 H 199 H Calcium Magnesium Total Bilirubin AST ALT Alkaline Phosphatase Total Protein Albumin
[2024-07-29 17:40] LABS: Glucose Point of Care 307 mg/dl (65-105)
[2024-07-29 20:03] LABS: Glucose Point of Care 221 mg/dl (65-105)
[2024-07-30] VITALS (16 sets, daily range): BP systolic 114–183; BP diastolic 40–66; PULSE 46–71; RESP 18–25; TEMP 37–37.5; O2SAT 93–98
[2024-07-30 00:08] LABS: Glucose Point of Care 212 mg/dl (65-105)
[2024-07-30] MEDS: INSULIN ASPART (*BKC) 100 UNITS/ML SUB-Q (00:44)
[2024-07-30 03:00] LABS: Glucose Point of Care 186 mg/dl (65-105)
[2024-07-30] MEDS: MEROPENEM 1 GM/NS 100 ML 1 GM/100 ML BAG IVPB ×2 (05:11→13:16)
[2024-07-30] MEDS: CENTRAL LINE FLUSH 10 ML IV PUSH ×2 (05:12→13:19)
[2024-07-30] MEDS: CENTRAL LINE FLUSH 20 ML IV PUSH (05:12)
[2024-07-30 05:37] LABS: Hematocrit 33.5 % (37.0-47.0); Hemoglobin 10.6 g/dL (12.0-15.0); Mean Corpuscular HGB Conc 31.6 g/dl (32-36); Mean Corpuscular Hemoglobin 31.3 pg (26-34); Mean Corpuscular Volume 98.8 fl (80-100); Mean Platelet Volume 12.6 fl (7.4-10.4); Platelet Count Result 121 k/mm3 (150-375); Red Blood Count 3.39 M/mm3 (4.2-5.4); White Blood Count 7.2 K/mm3 (4.5-10.0)
[2024-07-30 05:58] LABS: Alanine Aminotransferase 30 U/L (6-35); Alkaline Phosphatase 79 U/L (38-126); Anion Gap 3 mmol/L (4-12); Aspartate Amino Transferase 33 U/L (14-36); Bilirubin,Total 0.3 mg/dL (0.2-1.3); Blood Urea Nitrogen 38 mg/dL (7-17); Calcium 8.7 mg/dL (8.4-10.2); Carbon Dioxide 31 mmol/L (22-30); Chloride 101 mmol/L (98-107); Estimated CRCL calculation 58 ml/min; Estimated Glomerular Filt Rate > 60; Glucose 170 mg/dL (65-110); Magnesium 2.1 mg/dL (1.6-2.3); Potassium 3.8 mmol/L (3.4-5.0); Sodium 135 mmol/L (137-145); Triglycerides 122 mg/dL (<150)
[2024-07-30 06:07] LABS: Alveolar/Arterial O2 Gradient 123.5 mmHg; Base Excess ABG 3.7 mEq/l (+/-2.0); Fractional Inspired Oxygen 35 %; HCO3 ABG 26.4 mEq/l (22.0-26.0); Oxygen Content ABG 16.2 %vol (16.0-22.0); Oxygen Saturation ABG 97.5 % (95.0-100.0); Oxyhemoglobin 96.9 % THb (90.0-100.0); PCO2 ABG 33.1 mmHg (35.0-45.0); PO2 ABG 87.6 mmHg (80.0-100.0); Total Hemoglobin 11.8 g/dL (12.0-18.0)
[2024-07-30 06:08] LABS: Arterial Blood Gas PEEP 8 cmH2O; Arterial Blood Gas Tidal Volume 350 ml; Arterial Blood Gas Vent Mode CMV; Arterial Blood Gas Ventilator rate 18 /MIN; Device VENTILATOR; Modified Allen's Test Unable to perform; Site Drawn RIGHT RADIAL; pH ABG 7.519 (7.350-7.450)
[2024-07-30] MEDS: hydrALAZINE HCL 20 MG/ML VIAL IV PUSH (06:17)
[2024-07-30] MEDS: methylPREDNISolone SOD SUCC 40 MG VIAL IV PUSH (08:21)
[2024-07-30] MEDS: ENOXAPARIN 80 MG/0.8 ML SYRINGE SUB-Q (08:21)
[2024-07-30] MEDS: PANTOPRAZOLE SODIUM IV 40 MG VIAL IV PUSH (08:21)
[2024-07-30] MEDS: POTASSIUM CHLORIDE 20 MEQ PACKET (FOR LIQUID) FEED TUBE (08:21)
[2024-07-30] MEDS: MINERAL OIL/WHITE PETROLATUM OINTMENT 1 APPLIC EACH EYE (08:22)
[2024-07-30] MEDS: INSULIN GLARGINE (*BKC) 100 UNITS/ML 35 UNITS SUB-Q (08:23)
[2024-07-30 08:36] LABS: Glucose Point of Care 173 mg/dl (65-105)
--- NOTE | 2024-07-30 09:03 | WPDINTPN ---
Progress Note: A&P Assessment and Plan (1) Acute respiratory failure with hypoxia: Code(s): J96.01 - Acute respiratory failure with hypoxia Status: Acute Assessment and Plan: Acute respiratory failure secondary to altered mental status, aspiration pneumonia with underlying COPD CT scan chest x-ray ABG on vent settings reviewed Continue FiO2 at 40%, change tidal volume to 320, rate 18 and change PEEP to 8 Continue Bronchodilator and Steroids Management of pneumonia as below Decrease steroid dose Lasix IV x1 will perform weaning trial once patient starts following commands (2) Altered mental status: Qualifiers: Altered mental status type: coma Coma depth: [place] coma 3-8 Coma timing: at hospital admission Qualified Code(s): R40.2433 - [place] coma scale score 3-8, at hospital admission Code(s): R41.82 - Altered mental status, unspecified Status: Acute Assessment and Plan: Patient presented with unresponsiveness and hypoglycemia. Patient was down for a prolonged period of time This could be secondary to hypoglycemia or she may have had seizure and was postictal. Currently sedated Head CT was negative 06/27 Versed and fentanyl. Was switched to propofol EEG done but report pending. Preliminary report suggest encephalopathy Neurology consult Normal ammonia and TSH Unable to obtain MRI on a vented patient at [facility] neuro exam as above and has shown some improvement over last 48 hours. Continue to hold sedation. continue supportive care I spoke to neurologist discussed EEG results with me and stated that patient could benefit from an MRI and continues EEG monitoring to rule out any strokes or intermittent seizures. I spoke to patient's daughter. Patient has received care through [facility] and [facility]. we discussed option of transferring patient to 1 of the [facility] hospitals for continuous EEG monitoring and MRI. I discussed both risks and benefits of transfer. she is agreeable and would like patient to be transferred if possible so that she can make decisions on goals of care going forward. I have called [facility] transfer center and provided patient's information and waiting for call back from Neurology. (3) Sepsis: Code(s): A41.9 - Sepsis, unspecified organism Status: Acute Assessment and Plan: Sepsis secondary to UTI and pneumonia which is likely aspiration UA suggestive of UTI Chest CT reviewed Blood sputum Negative urine cultures growing E coli currently on meropenem. off vancomycin as MRSA screen was negative (4) Atrial fibrillation with rapid ventricular response: Code(s): I48.91 - Unspecified atrial fibrillation Status: Acute Assessment and Plan: Patient has history of AFib and is on sotalol as an outpatient When patient came in she was in sinus rhythm but after admission she has gone into AFib with RVR After discussion with Cardiology. Patient was started on diltiazem infusion for rate control and continue sotalol this time. If patient does not tolerate diltiazem she may need amiodarone infusion while monitoring a QTC. Most recent QTC on EKG was 442 Continue Lovenox 07/27 patient converted to sinus rhythm and diltiazem infusion was discontinued. Switch apixaban to Lovenox in case patient needs invasive procedures 07/30 Sotalol held due to sinus bradycardia. Will discuss with Cardiology regarding loading dose. 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 Patient is now on SSI and Lantus Increase Lantus to 35 Decrease steroid (6) Hypoglycemia: Code(s): E16.2 - Hypoglycemia, unspecified Status: Acute Assessment and Plan: Patient presented with hypoglycemia and was treated with D50 push and now is on D10 water Hypoglycemia has now resolved and patient is off of IV fluids with dextrose. Management of diabetes as above (7) Acute UTI: Code(s): N39.0 - Urinary tract infection, site not specified Status: Acute Assessment and Plan: See above (8) Pneumonia: Code(s): J18.9 - Pneumonia, unspecified organism Status: Acute Assessment and Plan: See above (9) Chronic obstructive pulmonary disease: Code(s): J44.9 - Chronic obstructive pulmonary disease, unspecified Status: Acute Assessment and Plan: See above (10) Swelling of lower extremity: Code(s): M79.89 - Other specified soft tissue disorders Status: Acute Assessment and Plan: Bilateral pitting edema Bilateral lower extremity Dopplers negative for DVT Patient likely has right heart failure from her COPD Plan DVT prophylaxis - Lovenox Stress ulcer prophylaxis -Protonix Nutrition -continue Tube Feeds Code Status - Full Code 07/29 I spoke to patient's daughter Mary Beth by phone and updated her with patient's status. I answered all questions. 07/30 Spoke to daughter at bedside. Discussed goals of care. She wants to continue supportive care but does not want patient to receive CPR in the event of cardiac arrest. She also believes the patient would not want a long-term trach and PEG and live in half-way if she does not improve. Total Critical Care Time - 30 minutes Due to a high probability of clinically significant, life threatening deterioration, the patient required my highest level of preparedness to intervene emergently and I personally spent this critical care time directly and personally managing the patient. This critical care time included obtaining a history; examining the patient; pulse oximetry; ordering and review of studies; arranging urgent treatment with development of a management plan; evaluation of patient's response to treatment; frequent reassessment; and discussions with other providers. It was exclusive of separately billable procedures and treating other patients and teaching time. Please see Assessment and Plan section and the rest of the note for further information on patient assessment and treatment Subjective Date/time seen: 07/30/24 Overnight events reviewed. Afebrile Continues to be on mechanical ventilation 35% FiO2 sotalol dose held overnight due to bradycardia off sedation Tolerating tube feeds. Good urine output. other vitals acceptable Review of Systems Review of Systems: ROS unobtainable: Yes unobtainable due to endotracheal tube, unobtainable due to medical condition and unobtainable due to mental status Exam Narrative: General: Pt is sedated, intubated and on mechanical ventilation Lungs/Chest: Trachea central Coarse BS B/L, no wheezing Cardiac: A regular rate and rhythm. Normal S1 S2. No murmurs Circulation: Pedal pulses are intact and symmetrical. Abdomen: Decreased bowel sounds.. Soft. NT. ND. Extremities: Bilateral pitting edema present right more than left : [place] in place Neurologic: Patient has her eyes open and is intermittently shaking her head. She moves her hands and feet but does not follow any commands. She does resist pupillary exam by closing her eyes and moving her head away. On calling her name she does look towards examiner but does not respond. PERRL Objective Data Vital Signs Vital Signs: Vital Signs - 24 hr 07/29/24 09:22 07/29/24 10:00 07/29/24 10:00 Temperature 37.2 C Pulse Rate 49 L 51 L 51 L Respiratory Rate 18 Blood Pressure 162/46 H Pulse Oximetry 97 Oxygen Delivery Fraction of Inspired Oxygen 07/29/24 11:24 07/29/24 12:00 07/29/24 12:00 Temperature 37.6 C Pulse Rate 49 L 51 L Respiratory Rate 18 Blood Pressure 149/59 H Pulse Oximetry 88 L 100 Oxygen Delivery Mechanical Ventilation Fraction of Inspired Oxygen 40 40 07/29/24 12:00 07/29/24 12:00 07/29/24 14:00 Temperature Pulse Rate 50 L 52 L 59 L Respiratory Rate 18 Blood Pressure Pulse Oximetry 98 Oxygen Delivery Mechanical Ventilation Fraction of Inspired Oxygen 40 07/29/24 14:00 07/29/24 14:36 07/29/24 16:00 Temperature 37.5 C Pulse Rate 59 L 68 60 Respiratory Rate 22 H Blood Pressure 120/42 L Pulse Oximetry 98 99 Oxygen Delivery Mechanical Ventilation Fraction of Inspired Oxygen 60 07/29/24 16:00 07/29/24 16:00 07/29/24 16:00 Temperature 37.4 C Pulse Rate 64 63 Respiratory Rate 18 23 H Blood Pressure 127/49 L Pulse Oximetry 97 97 Oxygen Delivery Mechanical Ventilation Fraction of Inspired Oxygen 40 40 07/29/24 16:39 07/29/24 18:00 07/29/24 18:00 Temperature 37.2 C Pulse Rate 67 51 L 52 L Respiratory Rate 17 Blood Pressure 123/52 L Pulse Oximetry 97 97 Oxygen Delivery Mechanical Ventilation Fraction of Inspired Oxygen 40 07/29/24 20:00 07/29/24 20:00 07/29/24 20:00 Temperature 37.1 C Pulse Rate 48 L 50 L Respiratory Rate 18 20 Blood Pressure 134/49 L Pulse Oximetry 98 97 Oxygen Delivery Mechanical Ventilation Fraction of Inspired Oxygen 40 40 07/29/24 20:00 07/29/24 20:01 07/29/24 21:19 Temperature Pulse Rate 50 L 60 48 L Respiratory Rate Blood Pressure Pulse Oximetry 97 Oxygen Delivery Mechanical Ventilation Fraction of Inspired Oxygen 40 07/29/24 22:00 07/29/24 22:00 07/29/24 23:08 Temperature 37.1 C Pulse Rate 55 L 52 L 56 L Respiratory Rate 18 Blood Pressure 162/49 H Pulse Oximetry 99 99 Oxygen Delivery Mechanical Ventilation Fraction of Inspired Oxygen 40 07/30/24 00:00 07/30/24 00:00 07/30/24 00:00 Temperature Pulse Rate 46 L 50 L Respiratory Rate 18 Blood Pressure Pulse Oximetry 96 Oxygen Delivery Mechanical Ventilation Fraction of Inspired Oxygen 35 35 07/30/24 00:00 07/30/24 02:00 07/30/24 02:00 Temperature 37.2 C 37.1 C Pulse Rate 46 L 48 L 48 L Respiratory Rate 18 21 H Blood Pressure 139/47 L 155/49 H Pulse Oximetry 96 97 Oxygen Delivery Fraction of Inspired Oxygen 07/30/24 02:02 07/30/24 04:00 07/30/24 04:00 Temperature Pulse Rate 49 L 57 L 46 L Respiratory Rate 18 Blood Pressure Pulse Oximetry 98 96 Oxygen Delivery Mechanical Ventilation Mechanical Ventilation Fraction of Inspired Oxygen 35 35 07/30/24 04:00 07/30/24 04:21 07/30/24 05:05 Temperature 37.0 C Pulse Rate 47 L 55 L Respiratory Rate 18 Blood Pressure 156/52 H Pulse Oximetry 96 97 Oxygen Delivery Mechanical Ventilation Fraction of Inspired Oxygen 35 35 07/30/24 06:00 07/30/24 06:00 07/30/24 06:33 Temperature 37.0 C Pulse Rate 51 L 48 L Respiratory Rate 18 Blood Pressure 183/54 H 114/40 L Pulse Oximetry 94 Oxygen Delivery Fraction of Inspired Oxygen 07/30/24 08:00 07/30/24 08:40 Temperature 37.0 C Pulse Rate 60 66 Respiratory Rate 20 Blood Pressure 133/66 Pulse Oximetry 93 94 Oxygen Delivery Mechanical Ventilation Fraction of Inspired Oxygen 35 Intake/Output Intake/Output: Intake & Output 07/27/24 07/28/24 07/29/24 07/30/24 23:59 23:59 23:59 23:59 Intake Total 1643.9 807.7 1565.0 621 Output Total 7042 317 9821 850 Balance -56.1 -92.3 -2035.0 -229 Meds/Results Medications: Active Medications Generic Name Dose Route Start Last Admin Trade Name Freq PRN Reason Stop Dose Admin Acetaminophen 650 mg 07/28/24 12:52 Acetaminophen Elixir 325 Mg/10.15 Ml Udc PO Q4H PRN Mild Pain (1-3) or Fever Albuterol 5 mg 07/26/24 10:06 Albuterol Sulfate Neb 2.5 Mg/3 Ml Inh INHALATION Q6HRT PRN Wheezing Dextrose 12.5 gm 07/27/24 07:28 Dextrose 50% 25 Gm/50 Ml Syringe IV PUSH PRN PRN Hypoglycemia Protocol Enoxaparin Sodium 80 mg 07/28/24 09:00 07/30/24 08:21 Enoxaparin 80 Mg/0.8 Ml Syringe SUB-Q 80 mg Q12HR TYREL Administration Glucagon 1 mg 07/27/24 07:28 Glucagon For Inj 1 Mg Vial IM PRN PRN Hypoglycemia Protocol Glucose 15 gm 07/27/24 07:28 Glucose Oral Gel 15 Gm Of Glucse In 37.5 Gm Tube PO PRN PRN Hypoglycemia Protocol Hydralazine HCl 20 mg 07/29/24 13:37 07/30/24 06:17 Hydralazine Hcl 20 Mg/Ml Vial IV PUSH 20 mg Q4H PRN Administration SBP more than 160 Meropenem 1 gm in 100 mls @ 200 mls/hr 07/26/24 06:00 07/30/24 06:14 IVPB Infused Q8HR TYREL Infusion Propofol 100 mls @ 0 mls/hr 07/26/24 11:15 07/29/24 19:35 Diprivan IV CONT Not Given .Q0M TYREL Protocol 0 MCG/KG/MIN Dextrose 1,000 mls @ 100 mls/hr 07/27/24 07:28 Dextrose 5% 1,000 Ml IVPB PRN PRN Hypoglycemia Protocol Insulin Aspart 4 - 8 units 07/27/24 07:30 07/30/24 06:17 Insulin Aspart (*Bkc) 100 Units/Ml SUB-Q Not Given Q4H [facility] Protocol Insulin Glargine 35 units 07/29/24 09:00 07/30/24 08:23 Insulin Glargine (*Bkc) 100 Units/Ml SUB-Q 35 units QAM TYREL Administration Ipratropium [place] 0.5 mg 07/26/24 10:06 Ipratropium Br 0.02% Inh Soln 0.5 Mg/2.5 Ml Vial INHALATION Q6HRT PRN Wheezing Methylprednisolone Sodium Succinate 40 mg 07/28/24 09:00 07/30/24 08:21 Methylprednisolone Sod Succ 40 Mg Vial IV PUSH 07/31/24 08:59 40 mg QAM TYREL Administration Metoprolol Tartrate 5 mg 07/27/24 09:55 Metoprolol Tartrate Inj 5 Mg/5 Ml Vial IV PUSH Q4H PRN Tachycardia Multi-Ingred Cream/Lotion/Oil/Oint 1 applic 07/26/24 21:00 07/30/24 08:22 Mineral Oil/White Petrolatum Ointment EACH EYE 1 applic Q12HR TYREL Administration Pantoprazole Sodium 40 mg 07/26/24 09:00 07/30/24 08:21 Pantoprazole Sodium Iv 40 Mg Vial IV PUSH 40 mg DAILY TYREL Administration Perflutren Lipid Microsphere 0 ml 07/27/24 09:56 Perflutren Lipid Microspheres 1.5 Ml Vial Diluted To 10 Ml Total Volume IV PUSH 07/30/24 09:56 ONCE PRN adequate visualization Protocol Sodium Chloride 10 ml 07/26/24 22:00 07/30/24 05:12 Central Line Flush IV PUSH 10 ml Q8HR TYREL Administration Sodium Chloride 20 ml 07/26/24 20:30 07/30/24 05:12 Central Line Flush IV PUSH 20 ml PRN PRN Administration after blood draws Sotalol HCl 80 mg 07/26/24 09:00 07/29/24 21:19 Sotalol Hcl 80 Mg Tablet FEED TUBE Not Given Q12HR TYREL Radiology Results: ITS Impressions Abdomen X-Ray 07/25/24 22:47 IMPRESSION: Endotracheal tube in good radiographic position. Orogastric tube in good position, and ready for immediate use. Redemonstration of a left upper lobe infiltrate, now with mild to moderate pulmonary vascular congestion Chest CT 07/26/24 05:14 Impression: Moderate left pleural effusion is increased from prior exam. Minimal right pleural effusion. Extensive presumed atelectatic changes in the left lower lobe and left upper lobe/lingula with mild right basilar atelectasis. Correlate clinically for pulmonary edema or pneumonia. Stable irregular airspace consolidation left lung apex, suggestive of chronic scarring or postinflammatory change. Correlate for acute pneumonia. Venous Doppler Study 07/26/24 11:15 IMPRESSION: 1: No lower extremity deep venous thrombosis. Head CT 07/29/24 11:27 IMPRESSION: 1. No acute intracranial abnormality. 2: Small bilateral mastoid effusions. Chest X-Ray 07/30/24 06:36 Impression: Support tubes, as above. Left upper lobe consolidation, likely pneumonia. Labs Labs: Laboratory Results - last 24 hr 07/29/24 07/29/24 07/29/24 11:51 17:38 20:01 WBC RBC Hgb Hct MCV MCH MCHC RDW Plt Count MPV Puncture Site ABG pH ABG pCO2 ABG pO2 ABG PO2/FiO2 Ratio ABG HCO3 ABG O2 Saturation ABG O2 Content ABG Base Excess A-a Gradient Oxyhemoglobin Total Hemoglobin O2 Delivery Device O2 Liters/Min Minute Volume Vent Rate Vent Mode FiO2 Tidal Volume PEEP Peak Inspir Pressure Pressure Support Sodium Potassium Chloride Carbon Dioxide Anion Gap BUN Creatinine Estim Creat Clear Calc Estimated GFR Glucose POC Capillary Glucose 199 H 307 H 221 H Calcium Magnesium Total Bilirubin AST ALT Alkaline Phosphatase Total Protein Albumin Triglycerides 07/30/24 07/30/24 07/30/24 00:07 02:57 05:24 WBC 7.2 RBC 3.39 L Hgb 10.6 L Hct 33.5 L MCV 98.8 MCH 31.3 MCHC 31.6 L RDW 15.0 H Plt Count 121 L MPV 12.6 H Puncture Site ABG pH ABG pCO2 ABG pO2 ABG PO2/FiO2 Ratio ABG HCO3 ABG O2 Saturation ABG O2 Content ABG Base Excess A-a Gradient Oxyhemoglobin Total Hemoglobin O2 Delivery Device O2 Liters/Min Minute Volume Vent Rate Vent Mode FiO2 Tidal Volume PEEP Peak Inspir Pressure Pressure Support Sodium 135 L Potassium 3.8 Chloride 101 Carbon Dioxide 31 H Anion Gap 3 L BUN 38 H Creatinine 0.72 Estim Creat Clear Calc 58 Estimated GFR > 60 Glucose 170 H POC Capillary Glucose 212 H 186 H Calcium 8.7 Magnesium 2.1 Total Bilirubin 0.3 AST 33 ALT 30 Alkaline Phosphatase 79 Total Protein 6.0 L Albumin 3.0 L Triglycerides 122 07/30/24 07/30/24 05:54 07:56 WBC RBC Hgb Hct MCV MCH MCHC RDW Plt Count MPV Puncture Site Right radial ABG pH 7.519 H* ABG pCO2 33.1 L ABG pO2 87.6 ABG PO2/FiO2 Ratio 2.50 ABG HCO3 26.4 H ABG O2 Saturation 97.5 ABG O2 Content 16.2 ABG Base Excess 3.7 A-a Gradient 123.5 Oxyhemoglobin 96.9 Total Hemoglobin 11.8 L O2 Delivery Device Ventilator O2 Liters/Min Not Reportable Minute Volume Not Reportable Vent Rate 18 Vent Mode Cmv FiO2 35 Tidal Volume 350 PEEP 8 Peak Inspir Pressure Not Reportable Pressure Support Not Reportable Sodium Potassium Chloride Carbon Dioxide Anion Gap BUN Creatinine Estim Creat Clear Calc Estimated GFR Glucose POC Capillary Glucose 173 H Calcium Magnesium Total Bilirubin AST ALT Alkaline Phosphatase Total Protein Albumin Triglycerides Quality VTE Prophylaxis VTE prophylaxis: pharmacologic ordered
--- NOTE | 2024-07-30 10:26 | WPDNEUROLOGY ---
Neurology EEG Report General Information Date of Study: 07/27/24 TEST Electroencephalogram DIAGNOSIS prolonged unresponsiveness. CONDITION OF RECORDING Bedside recording in ICU. Patient is currently on ventilator and sedated EEG NUMBER [id number] CLINICAL HISTORY patient has history of diabetes mellitus and had a prolonged unresponsiveness. He was found to be hypoglycemic however due to prolonged unresponsiveness the patient has been on ventilator EEG DESCRIPTION the background activity consists of predominantly theta activity mixed with frontal intermittent rhythmic delta activity. At times it gives the appearance of burst followed by brief period of relative suppression of the background activity. Occasionally sharp wave transients appeared over right frontotemporal area. However no spiking or electrographic seizure activity was noted. IMPRESSION This is an abnormal EEG due to presence of diffuse background slowing and frontal intermittent rhythmic delta activity. At times sharp wave activity was noted over the right frontotemporal area. No electrographic seizures were seen. A follow-up study particularly when the patient is of sedatives may be helpful.
--- NOTE | 2024-07-30 10:37 | PCFNICU ---
ICU Rounding Note: Pt current nutrition is Vital 1.2 @ 40 ml/h with Prosource TF BID. Flush 30 ml q 4 h.. Nutrition recommendation: No new recommendations. Continue current nutrition care plan and orders. Agree with orders. Last recorded weight is 76.7 kg. Bowel Motility: +1 BM 07/30 Labs Reviewed: Hgb 10.6, Hct 33.5, Alb 3.0, Na 135, BUN 38, Glu 170 Meds Noted: Sedation is off. No pressors. Solumedrol, meropenem, Lantus, Novolog Skin: No skin issues noted Additional Notes: Propofol is off. Discussed with MD and wants to leave on current orders. Possible breathing trial tomorrow. Continue orders. Following daily in ICU rounds. Will monitor weight, labs, skin, diet orders, meds every Tuesday and Tuesday. .
--- NOTE | 2024-07-30 12:47 | P.PNCROSS_ITS ---
Event Note Event Note Event Note: Spoke to Dr. Ulloa with Neurology and Dr. Blanton with ICU at [facility] and discuss case. They have accepted the patient and patient will be transferred once a bed is available.
--- NOTE | 2024-07-30 14:32 | P.TS_ITS ---
Transfer Discharge Sum: Prov Provider Date of admission: 07/25/24 22:32 Primary care physician: Ernesto Alfaro MD Admitting clinician: Antonia Light DO Consults: 07/25/24 Consult to Physician Routine Comment: Consulting Provider: Artem Rodríguez Reason for consultation: pna, respiratory failure, AMS, hypoglycemia Has provider been notified: Yes 07/26/24 Consult to Physician Routine Comment: Consulting Provider: Marques Gonzalez Reason for consultation: Afib, Sotalol Has provider been notified: Yes Consult to Physician Routine Comment: Spoke with Dr. Hess Consulting Provider: Tomas Hess call center agent/MD group to consult: Neurology Reason for consultation: Encephalopathy Has provider been notified: Yes DS: Admitting Diagnosis Discharge Date 07/30/24 Admitting Diagnosis Unresponsive DS: Discharge Diagnosis Discharge Diagnosis (1) Type 2 diabetes mellitus with hypoglycemia and coma, with long-term current use of insulin: Code(s): E11.641 - Type 2 diabetes mellitus with hypoglycemia with coma; Z79.4 - phone counselor (current) use of insulin Status: Acute (2) Acute respiratory failure with hypoxia: Code(s): J96.01 - Acute respiratory failure with hypoxia Status: Acute (3) Acute UTI: Code(s): N39.0 - Urinary tract infection, site not specified Status: Acute (4) Altered mental status: Qualifiers: Altered mental status type: coma Coma depth: Garry coma 3-8 Coma timing: at hospital admission Qualified Code(s): R40.2433 - Garry coma scale score 3-8, at hospital admission Code(s): R41.82 - Altered mental status, unspecified Status: Acute (5) Pleural effusion: Code(s): J90 - Pleural effusion, not elsewhere classified Status: Acute Transfer Discharge Sum: Med Medications Active and Home Medications: Home Medications albuterol sulfate 90 mcg/actuation aerosol inhaler 2 inh inhalation PRN PRN SOB 07/14/20 [History Confirmed 07/26/24] gabapentin 300 mg capsule 300 mg PO TID 07/14/20 [History Confirmed 07/26/24] diltiazem HCl 120 mg capsule,extended release 24 hr, controlled (DILT-XR) 120 mg PO DAILY 12/07/21 [History Confirmed 07/26/24] insulin aspart U-100 100 unit/mL (3 mL) subcutaneous pen 1 sliding scale dose subcut TIDWMEAL 05/01/24 [History Confirmed 07/26/24] apixaban 5 mg tablet (Eliquis) 5 mg PO Q12HR #60 tabs 05/09/24 [Rx Confirmed 07/26/24] insulin glargine 100 unit/mL (3 mL) subcutaneous pen (Lantus Solostar U-100 Insulin) 25 unit (0.25 mL) subcut ACHS #15 mL 05/09/24 [Rx Confirmed 07/26/24] polyethylene glycol 3350 17 gram oral powder packet (Miralax) 17 g PO QAM #30 ea 05/09/24 [Rx Confirmed 07/26/24] sotalol 80 mg tablet 80 mg PO Q12HR #60 tabs 05/09/24 [Rx Confirmed 07/26/24] cyanocobalamin-methylcobalamin 600 mcg-600 mcg sublingual tablet 1 tablet sublingual DAILY 30 days #30 tabs 07/09/24 [Rx Confirmed 07/26/24] budesonide-formoterol HFA 160 mcg-4.5 mcg/actuation aerosol inhaler (Breyna) 2 puff inhalation BID 07/26/24 [History Confirmed 07/26/24] duloxetine 60 mg capsule,delayed release 90 mg PO DAILY 07/26/24 [History Confirmed 07/26/24] oxycodone 10 mg tablet 10 mg PO Q4H PRN pain 07/26/24 [History Confirmed 07/26/24] Active Medications Acetaminophen (Acetaminophen Elixir 325 Mg/10.15 Ml Udc) 650 mg PO Q4H PRN PRN Reason: Mild Pain (1-3) or Fever Albuterol (Albuterol Sulfate Neb 2.5 Mg/3 Ml Inh) 5 mg INHALATION Q6HRT PRN PRN Reason: Wheezing Dextrose (Dextrose 50% 25 Gm/50 Ml Syringe) 12.5 gm IV PUSH PRN PRN; Protocol PRN Reason: Hypoglycemia Enoxaparin Sodium (Enoxaparin 80 Mg/0.8 Ml Syringe) 80 mg SUB-Q Q12HR [facility] Last Admin: 07/30/24 08:21 Dose: 80 mg Glucagon (Glucagon For Inj 1 Mg Vial) 1 mg IM PRN PRN; Protocol PRN Reason: Hypoglycemia Glucose (Glucose Oral Gel 15 Gm Of Glucse In 37.5 Gm Tube) 15 gm PO PRN PRN; Protocol PRN Reason: Hypoglycemia Hydralazine HCl (Hydralazine Hcl 20 Mg/Ml Vial) 20 mg IV PUSH Q4H PRN PRN Reason: SBP more than 160 Last Admin: 07/30/24 06:17 Dose: 20 mg Meropenem () 1 gm in 100 mls @ 200 mls/hr IVPB Q8HR [facility] Stop: 08/01/24 14:29 Last Admin: 07/30/24 13:16 Dose: 200 mls/hr Propofol (Diprivan) 100 mls @ 0 mls/hr IV CONT .Q0M [facility]; Protocol Last Admin: 07/29/24 19:35 Dose: Not Given Dextrose (Dextrose 5% 1,000 Ml) 1,000 mls @ 100 mls/hr IVPB PRN PRN; Protocol PRN Reason: Hypoglycemia Insulin Aspart (Insulin Aspart (*Bkc) 100 Units/Ml) 4 - 8 units SUB-Q Q4H [facility]; Protocol Last Admin: 07/30/24 12:20 Dose: Not Given Insulin Glargine (Insulin Glargine (*Bkc) 100 Units/Ml) 35 units SUB-Q QAM [facility] Last Admin: 07/30/24 08:23 Dose: 35 units Ipratropium [place] (Ipratropium Br 0.02% Inh Soln 0.5 Mg/2.5 Ml Vial) 0.5 mg INHALATION Q6HRT PRN PRN Reason: Wheezing Methylprednisolone Sodium Succinate (Methylprednisolone Sod Succ 40 Mg Vial) 40 mg IV PUSH QAM [facility] Stop: 07/31/24 08:59 Last Admin: 07/30/24 08:21 Dose: 40 mg Metoprolol Tartrate (Metoprolol Tartrate Inj 5 Mg/5 Ml Vial) 5 mg IV PUSH Q4H PRN PRN Reason: Tachycardia Multi-Ingred Cream/Lotion/Oil/Oint (Mineral Oil/White Petrolatum Ointment) 1 applic EACH EYE Q12HR [facility] Last Admin: 07/30/24 08:22 Dose: 1 applic Pantoprazole Sodium (Pantoprazole Sodium Iv 40 Mg Vial) 40 mg IV PUSH DAILY [facility] Last Admin: 07/30/24 08:21 Dose: 40 mg Sodium Chloride (Central Line Flush) 10 ml IV PUSH Q8HR [facility] Last Admin: 07/30/24 13:19 Dose: 10 ml Sodium Chloride (Central Line Flush) 20 ml IV PUSH PRN PRN PRN Reason: after blood draws Last Admin: 07/30/24 05:12 Dose: 20 ml Sotalol HCl (Sotalol Hcl 80 Mg Tablet) 80 mg FEED TUBE Q12HR [facility] Last Admin: 07/29/24 21:19 Dose: Not Given Transfer Discharge Sum: Hosp Hospital Course Hospital course: Edelmira Cardenas is a 74 year old female Severe hypoglycemia due to insulin use and likely associated decreased oral int maya. Patient had profound persistent hypoglycemia despite glucose administration in had recurrence of hypoglycemia. Subsequently D5 W was started at 75 mL an hour. Will continue to check hourly Accu-Cheks until stabilized. The patient does have a classical coma Scale of 6 likely resultant encephalopathy from suspected hypoglycemic seizure given injury to the patient's tongue. There is likely some postictal state and some residual encephalopathy from hypoglycemia. CT of the head did not demonstrated any acute intercranial process. The patient has become a little bit more responsive and subsequently has required some sedation with fentanyl and Versed. The patient did have associated acute hypoxic respiratory failure due to the above factors requiring intubation. Initial ventilator settings were AC/CMV tidal volume 340 rate of 18 peep of 5 repeat ABG did demonstrate mild respiratory acidosis with hypercapnia. Subsequently tidal volume was increased to 360. Daily chest x-ray has been ordered. When the patient's history of COPD and in the setting of acquired intubation will place patient on scheduled nebulizer treatment. Patient has UA suggestive of UTI and had a low-grade fever with associated tachypnea and leukocytosis patient does fit sepsis criteria without evidence of septic shock. Patient was started on broad-spectrum antibiotics with meropenem. Blood cultures and urine cultures have been obtained. Patient's CT of the chest also demonstrated findings with possible underlying pneumonia given development of hypoxic respiratory failure and suspected seizure pn eumonia/aspiration pneumonitis cannot be ruled out. Will broaden antibiotic coverage with azithromycin and vancomycin. Will obtain sputum culture. Will repeat CBC and electrolyte panel. Patient does have pleural effusion moderate in nature likely associated with pneumonia. CHF less likely given the patient had echocardiogram with normal systolic function and normal diastolic function in April of this year. She did have some mild pulmonary hypertension. Given the patient's underlying history of COPD in the setting of underlying pneumonia. patient remains on ventilator, seen by chain dyer and neurologist suspect metabolic encephalopathy 2/2 hypoglycemia resulting in seizure and unresponsiveness, patient was given IVF and glucose, and her blood sugars now trending up and close to normal, patient also has sepsis 2/2 UTI is growing E. coli and aspiration pneumonia being treated with meropenem, patient now has Atrial fibrillation most likely triggered by hypoglycemia, aspiration pneumonia and uti, patient off diltiazem drip and on Sotalol seen by milk inspector. today patient is slightly responsive to verbal commands and opens here eyes, but remains unresponsive. discuss with chain dyer ordered CT scan of the head which is normal, seen by neurologist and EEG is pending. prognosis is poor. Discussed with chain dyer patient is not responding appropriately will transfer patient to a tertiary care for further evaluation. Time Spent with Patient Time attestation: Total time spent providing and/or coordinating transfer services: Exam Narrative: Patient is comfortable, NAD HEENT: ET tube in place LUNGS:CTA HEART: RR S1S2 ABD: BS+, Soft and nontender Lower extremities: no edema SKIN: nonjaundiced Neuro: On vent and sedated DS: Data Data Completed and Pending Labs on day of discharge: Labs from last 24 hours 07/30/24 07/30/24 07/30/24 07:56 05:54 05:24 WBC 7.2 RBC 3.39 L Hgb 10.6 L Hct 33.5 L MCV 98.8 MCH 31.3 MCHC 31.6 L RDW 15.0 H Plt Count 121 L MPV 12.6 H Puncture Site Right radial ABG pH 7.519 H* ABG pCO2 33.1 L ABG pO2 87.6 ABG PO2/FiO2 Ratio 2.50 ABG HCO3 26.4 H ABG O2 Saturation 97.5 ABG O2 Content 16.2 ABG Base Excess 3.7 A-a Gradient 123.5 Oxyhemoglobin 96.9 Total Hemoglobin 11.8 L O2 Delivery Device Ventilator O2 Liters/Min Not Reportable Minute Volume Not Reportable Vent Rate 18 Vent Mode Cmv FiO2 35 Tidal Volume 350 PEEP 8 Peak Inspir Pressure Not Reportable Pressure Support Not Reportable Sodium 135 L Potassium 3.8 Chloride 101 Carbon Dioxide 31 H Anion Gap 3 L BUN 38 H Creatinine 0.72 Estim Creat Clear Calc 58 Estimated GFR > 60 Glucose 170 H POC Capillary Glucose 173 H Calcium 8.7 Magnesium 2.1 Total Bilirubin 0.3 AST 33 ALT 30 Alkaline Phosphatase 79 Total Protein 6.0 L Albumin 3.0 L Triglycerides 122 07/30/24 07/30/24 07/29/24 02:57 00:07 20:01 WBC RBC Hgb Hct MCV MCH MCHC RDW Plt Count MPV Puncture Site ABG pH ABG pCO2 ABG pO2 ABG PO2/FiO2 Ratio ABG HCO3 ABG O2 Saturation ABG O2 Content ABG Base Excess A-a Gradient Oxyhemoglobin Total Hemoglobin O2 Delivery Device O2 Liters/Min Minute Volume Vent Rate Vent Mode FiO2 Tidal Volume PEEP Peak Inspir Pressure Pressure Support Sodium Potassium Chloride Carbon Dioxide Anion Gap BUN Creatinine Estim Creat Clear Calc Estimated GFR Glucose POC Capillary Glucose 186 H 212 H 221 H Calcium Magnesium Total Bilirubin AST ALT Alkaline Phosphatase Total Protein Albumin Triglycerides 07/29/24 17:38 WBC RBC Hgb Hct MCV MCH MCHC RDW Plt Count MPV Puncture Site ABG pH ABG pCO2 ABG pO2 ABG PO2/FiO2 Ratio ABG HCO3 ABG O2 Saturation ABG O2 Content ABG Base Excess A-a Gradient Oxyhemoglobin Total Hemoglobin O2 Delivery Device O2 Liters/Min Minute Volume Vent Rate Vent Mode FiO2 Tidal Volume PEEP Peak Inspir Pressure Pressure Support Sodium Potassium Chloride Carbon Dioxide Anion Gap BUN Creatinine Estim Creat Clear Calc Estimated GFR Glucose POC Capillary Glucose 307 H Calcium Magnesium Total Bilirubin AST ALT Alkaline Phosphatase Total Protein Albumin Triglycerides Preliminary micro results at discharge 07/25/24 23:31 Blood Culture - Preliminary Blood 07/25/24 23:31 Blood Culture - Preliminary Blood
[2024-07-30 14:40] LABS: Glucose Point of Care < 20 mg/dl (65-105)
== END 2024-07-30 15:10 | disposition short-term general hospital (02) | DRG 870 ==
LOC: ANHED 22:39 → ANHICU 22:51
PROVIDERS: Emergency Medicine; Internal Medicine; Admitting Provider Internal Medicine; Emergency Provider Emergency Medicine; PCP Family Medicine; Visit Provider Family Medicine
DX: A41.9 Sepsis, unspecified organism (principal); J18.9 Pneumonia, unspecified organism; E11.641 Type 2 diabetes mellitus with hypoglycemia with coma; J69.0 Pneumonitis due to inhalation of food and vomit; J96.01 Acute respiratory failure with hypoxia; G93.41 Metabolic encephalopathy; N39.0 Urinary tract infection, site not specified; J90 Pleural effusion, not elsewhere classified; I48.0 Paroxysmal atrial fibrillation; I10 Essential (primary) hypertension; I73.00 Raynaud's syndrome without gangrene; J44.9 Chronic obstructive pulmonary disease, unspecified; R56.9 Unspecified convulsions; E11.40 Type 2 diabetes mellitus with diabetic neuropathy, unspecified; E78.5 Hyperlipidemia, unspecified; B96.20 Unspecified Escherichia coli [E. coli] as the cause of diseases classified elsewhere; F41.9 Anxiety disorder, unspecified; F32.A Depression, unspecified; Z20.822 Contact with and (suspected) exposure to COVID-19; Z79.01 Long term (current) use of anticoagulants; Z79.4 Long term (current) use of insulin; Z89.022 Acquired absence of left finger(s); Z87.891 Personal history of nicotine dependence
CPT/HCPCS: 31500; 36415; 36556; 36600; 70450; 71045; 71250; 80048; 80053; 80307; 81001; 82077; 82140; 82375; 82550; 82805; 82948; 83050; 83605; 83735; 83880; 84145; 84443; 84478; 85018; 85025; 85027; 85610; 85730; 87040; 87070; 87086; 87186; 87205; 87637; 87641; 93005; 93306; 93970; 94002; 94003; 94640; 95816; 96365; 96375; 99285; A9270; C1751; J0171; J0330; J0360; J0456; J0613; J1610; J1650; J1815; J1938; J2185; J2250; J2310; J2470; J2704; J2919; J3010; J3370; J7030; J7042